=== PATIENT | female | born 1955 | race Two or more races ===

== ENCOUNTER 2020-08-17 18:44 | Emergency (ER) | payer MEDICARE, SELFPAY ==
[2020-08-17 18:55] VITALS: BP 132/79; PULSE 77; RESP 18; TEMP 37.9; O2SAT 99; BMI 28.8
--- NOTE | 2020-08-17 19:56 | ECG_ITS ---
Test Reason : ABDOMINAL PAIN Blood Pressure : / mmHG Vent. Rate : 077 BPM Atrial Rate : 077 BPM P-R Int : 150 ms QRS Dur : 092 ms QT Int : 398 ms P-R-T Axes : 044 -05 028 degrees QTc Int : 450 ms Normal sinus rhythm Normal ECG When compared with ECG of 23-JUL-2020 14:14, No significant change was found Referred By: Geovany Ventura Electronically Signed By:SYED SCHULTZ MD
--- NOTE | 2020-08-17 20:04 | ED_ITS ---
HPI - Abdominal Pain General Chief Complaint: Abdominal Pain <JENNIFER Larry Last Filed: 08/18/20 02:23> Stated Complaint: abd pain <JENNIFER Larry Last Filed: 08/18/20 02:23> Time Seen by Provider: 08/17/20 20:28 <JENNIFER Larry Last Filed: 08/18/20 02:23> Source: patient <JENNIFER Larry Last Filed: 08/18/20 02:23> Mode of arrival: ambulatory <JENNIFER Larry Last Filed: 08/18/20 02:23> Limitations: no limitations <JENNIFER Larry Last Filed: 08/18/20 02:23> History of Present Illness HPI narrative: Patient presents to the abdominal pain for for 4 days. Pateint states epigastric abdominal pain for 4 days. patient states no fever, chills, chest pain, swelling of lower extremiteis, calf pain, dysuria, or flank pain, <JENNIFER Larry Last Filed: 08/18/20 02:23> Related Data Allergies/Adverse Reactions: Allergies Allergy/AdvReac Type Severity Reaction Status Date / Time dicyclomine [From BENTYL] Allergy Unknown HIVES Verified 08/17/20 18:58 hydrocodone [HYDROCODONE] Allergy Unknown UNKNOWN Verified 08/17/20 18:58 ibuprofen [From MOTRIN] Allergy Unknown HIVES Verified 08/17/20 18:58 Iodinated Contrast Media Allergy Unknown ITCHING Verified 08/17/20 18:58 [IV CONTRAST] minocycline [MINOCYCLINE] Allergy Unknown UNK Verified 08/17/20 18:58 morphine [MORPHINE] Allergy Unknown UNKNOWN Verified 08/17/20 18:58 naproxen [NAPROXEN] Allergy Unknown UNKOWN Verified 08/17/20 18:58 peanut [PEANUT] Allergy Unknown HIVES Verified 08/17/20 18:58 sulfamethoxazole Allergy Unknown UNKNOWN Verified 08/17/20 18:58 [From BACTRIM] tramadol [TRAMADOL] Allergy Unknown UNK Verified 08/17/20 18:58 trimethoprim [From BACTRIM] Allergy Unknown UNKNOWN Verified 08/17/20 18:58 amitriptyline [AMITRIPTYLINE] AdvReac Mild HYPER Verified 08/17/20 18:58 metoclopramide [From REGLAN] AdvReac Mild HYPER Verified 08/17/20 18:58 latex [LATEX] AdvReac Unknown RASH Verified 08/17/20 18:58 phenylephrine [PHENYLEPHRINE] AdvReac Unknown UNKNOWN Verified 08/17/20 18:58 promethazine [From PHENERGAN] AdvReac Unknown UNK Verified 08/17/20 18:58 From REGLAN Allergy Unknown UNKNOWN Uncoded 07/20/20 18:07 SHELLFISH Allergy Unknown HIVES Uncoded 07/20/20 18:07 <JENNIFER Larry - Last Filed: 08/18/20 02:23> Review of Systems Review of Systems Yes all other systems are reviewed and are negative <JENNIFER Larry Last Filed: 08/18/20 02:23> Constitutional: Reports as per HPI and Reports no additional constitutional complaints <JENNIFER Larry Last Filed: 08/18/20 02:23> Eyes: Reports as per HPI and Reports no additional eye complaints <JENNIFER Larry Last Filed: 08/18/20 02:23> Reports system reviewed and no additional complaints, except as documented and Reports as per HPI <JENNIFER Larry Last Filed: 08/18/20 02:23> Cardiovascular: Reports as per HPI, Reports no additional cardiovascular complaints, Denies Abdominal Cramping after Meds, Denies Abdominal Distension, Denies chest pain, Denies chest pain at rest, Denies chest pain with activity, Denies Loss of Consciousness, Denies dyspnea on exertion and Denies orthopnea <JENNIFER Larry Last Filed: 08/18/20 02:23> Respiratory: Reports no additional respiratory complaints, Reports no additional respiratory complaints and Denies dyspnea on exertion <JENNIFER Larry Last Filed: 08/18/20 02:23> Gastrointestinal: Reports abdominal pain and Reports heartburn <JENNIFER Larry Last Filed: 08/18/20 02:23> Genitourinary: Reports no additional female genitourinary complaints, Reports as per HPI, Denies dysuria, Denies urinary incontinence, Denies urinary hesitancy and Denies urinary urgency <JENNIFER Larry Last Filed: 08/18/20 02:23> Reports system reviewed and no additional complaints, except as documented, Reports as per HPI and Denies behavioral changes <JENNIFER Larry Last Filed: 08/18/20 02:23> Psychiatric: Reports no additional psychiatric complaints, Reports as per HPI, Denies abnormal sleep pattern, Denies anxiety and Denies behavioral changes <JENNIFER Larry - Last Filed: 08/18/20 02:23> Physical Exam Vital Signs: Vital Signs: Vital Signs Temp Pulse Resp BP Pulse Ox 08/18/20 00:21 98.2 F 69 18 137/81 97 08/17/20 18:55 100.2 F 77 18 132/79 99 Body Mass Index 28.8 <JENNIFER Larry - Last Filed: 08/18/20 02:23> Vital Signs: Vital Signs Temp Pulse Resp BP Pulse Ox 08/18/20 00:21 98.2 F 69 18 137/81 97 08/17/20 18:55 100.2 F 77 18 132/79 99 Body Mass Index 28.8 <Raul Christina MD - Last Filed: 08/22/20 15:13> Const: General: cooperative, healthy appearing, comfortable and no acute distress <JENNIFER Larry Last Filed: 08/18/20 02:23> Orientation/consciousness: oriented to person, oriented to place, oriented to time and patient oriented x3 <JENNIFER Larry Last Filed: 08/18/20 02:23> HENMT: Head: Yes normal to inspection <JENNIEFR Larry Last Filed: 08/18/20 02:23> Eyes: General: appearance normal, both eyes and all related structures <JENNIFER Marie Last Filed: 08/18/20 02:23> Neck: Neck: Yes normal visual inspection <JENNIFER Larry Last Filed: 08/18/20 02:23> Chest: Chest palpation & inspection: normal inspection of the chest <JENNIFER Larry Last Filed: 08/18/20 02:23> Resp: Effort & Inspection: normal respiratory effort <JENNIFER Larry Last Filed: 08/18/20 02:23> Cardio: Jugular venous distension: no JVD <JENNIFER Larry Last Filed: 08/18/20 02:23> Rate: regular rate <JENNIFER Larry Last Filed: 08/18/20 02:23> Heart sounds: S1 normal heart sound present and S2 normal heart sound present <JENNIFER Larry Last Filed: 08/18/20 02:23> GI: Inspection: Yes normal to inspection, Yes abdominal wall ecchymosis, No Abdominal wall edema and No distended <JENNIFER Larry Last Filed: 08/18/20 02:23> Palpation (GI): Soft to palpation, not firm, Tenderness to palpation present (GI) in the epigastrum, no guarding and not rigid <JENNIFER Larry Last Filed: 08/18/20 02:23> Percussion: Yes normal to percussion <JENNIFER Larry Last Filed: 08/18/20 02:23> Auscultation: normal bowel sounds <JENNIFER Larry Last Filed: 08/18/20 02:23> : General: No CVA tenderness and Yes no CVA tenderness <JENNIFER Larry Last Filed: 08/18/20 02:23> Back/Spine/Pelvis: Back: no CVA tenderness, No CVA tenderness and No back tenderness <JENNIFER Larry Last Filed: 08/18/20 02:23> Skin: General skin exam: no rashes or lesions noted <JENNIFER Larry Last Filed: 08/18/20 02:23> Neuro: General: oriented to person, oriented to place, oriented to time, patient oriented x3, gait normal and CN's II-XI intact bilaterally <JENNIFER Larry Last Filed: 08/18/20 02:23> Cranial nerves: Yes CN's II-XII intact bilaterally <JENNIFER Larry Last Filed: 08/18/20 02:23> Psych: Appearance: grossly normal and well kempt <JENNIFER Larry Last Filed: 08/18/20 02:23> Course Course Course Narrative: Patient will have labs, EKG, troponin, and imaging for evaluation. Due to age. Cardiac evaluation will be done. <JENNIFER Larry Last Filed: 08/18/20 02:23> I have reviewed the chart <Raul Christina MD - Last Filed: 08/22/20 15:13> Reevaluation(s) Reevaluation #1: Abdominal CT scan and labs came back normal. Patient UA is normal. patient is safe for discharge <JENNIFER Larry - Last Filed: 08/18/20 02:23> Time: 23:21 <JENNIFER Larry - Last Filed: 08/18/20 02:23> MDM - Abdominal Pain MDM Narrative Medical decision making narrative: Ct scan normal. pmh indicate posibility of GERD. Troponin negative after 4 days of symptosm. <JENNIFER Laryr - Last Filed: 08/18/20 02:23> Lab Data Result diagrams: : 08/17/20 21:02 08/17/20 20:55 <JENNIFER Larry - Last Filed: 08/18/20 02:23> Labs: Lab Results 08/17/20 08/17/20 08/17/20 Range/Units 20:55 20:55 20:55 WBC (4.8-10.8) X10*3/uL RBC (4.20-5.50) X10*6/uL Hgb (12.0-16.0) g/dl Hct (37-47) % MCV (80-98) fL MCH (27.0-33.0) pg MCHC (31.0-35.0) g/dl RDW (11.0-16.0) % Plt Count (160-400) X10*3/uL MPV (9.4-12.3) fL Immature Gran % (Auto) (0.0-0.4) % Neut % (Auto) (45-73) % Lymph % (Auto) (20-40) % [place] % (Auto) (2-11) % Eos % (Auto) (0-4) % Baso % (Auto) (0-2) % Lymph # (Auto) (1.2-4.9) X10*3/uL [place] # (Auto) (0.1-1.2) X10*3/uL Eos # (Auto) (0.0-0.4) X10*3/uL Baso # (Auto) (0.0-0.2) X10*3/uL Abs Immat Gran (auto) (0.00-0.03) X10*3/uL Absolute Neuts (auto) (2.0-8.3) X10*3/uL Absolute Nucleated RBC (0.0-0.012) X10*3/uL Nucleated RBC % (auto) (0.0-0.2) /100WBC PT 13.8 H (10.8-13.0) SEC INR 1.2 H (0.9-1.1) APTT 32.8 (24.1-38.0) SEC Sodium 138 (135-145) mmol/L Potassium 3.8 (3.3-5.1) mmol/l Chloride 103 (96-108) mmol/L Carbon Dioxide 23 (22-29) mmol/L Anion Gap 16 (12-20) BUN 14 (9-16) mg/dL Creatinine 0.84 (0.5-1.4) mg/dL Estim Creat Clear Calc 65.8 Estimated GFR > 60 Random Glucose 135 H (60-115) mg/dL Calcium 9.1 (8.4-10.2) mg/dL Total Bilirubin 0.4 (0.0-1.0) mg/dL Direct Bilirubin 0.2 (0.0-0.5) mg/dL AST 19 (5-31) U/L ALT 21 (0-31) U/L Alkaline Phosphatase 46 (39-117) U/L Troponin I High Sens < 3.5 (<3.5-17.0) ng/L Total Protein 6.9 (6.5-8.0) g/dL Albumin 4.0 (3.5-5.0) g/dL Lipase 27 (8-78) U/L Urine Color Urine Appearance Urine pH (5.0-8.0) Ur Specific [place] (1.005-1.025) Urine Protein (NEG-TRACE) MG/DL Urine Glucose (UA) (NEG) MG/DL Urine Ketones (NEG) MG/DL Urine Blood (NEG) Urine Nitrite (NEG) Ur Leukocyte Esterase (NEG) 08/17/20 08/17/20 Range/Units 21:02 21:51 WBC 7.7 (4.8-10.8) X10*3/uL RBC 4.24 (4.20-5.50) X10*6/uL Hgb 12.0 (12.0-16.0) g/dl Hct 36.8 L (37-47) % MCV 86.8 (80-98) fL MCH 28.3 (27.0-33.0) pg MCHC 32.6 (31.0-35.0) g/dl RDW 12.2 (11.0-16.0) % Plt Count 240 (160-400) X10*3/uL MPV 9.7 (9.4-12.3) fL Immature Gran % (Auto) 0.3 (0.0-0.4) % Neut % (Auto) 58.3 (45-73) % Lymph % (Auto) 32.3 (20-40) % [place] % (Auto) 6.0 (2-11) % Eos % (Auto) 2.6 (0-4) % Baso % (Auto) 0.5 (0-2) % Lymph # (Auto) 2.5 (1.2-4.9) X10*3/uL [place] # (Auto) 0.5 (0.1-1.2) X10*3/uL Eos # (Auto) 0.2 (0.0-0.4) X10*3/uL Baso # (Auto) 0.0 (0.0-0.2) X10*3/uL Abs Immat Gran (auto) 0.02 (0.00-0.03) X10*3/uL Absolute Neuts (auto) 4.5 (2.0-8.3) X10*3/uL Absolute Nucleated RBC 0.000 (0.0-0.012) X10*3/uL Nucleated RBC % (auto) 0.0 (0.0-0.2) /100WBC PT (10.8-13.0) SEC INR (0.9-1.1) APTT (24.1-38.0) SEC Sodium (135-145) mmol/L Potassium (3.3-5.1) mmol/l Chloride (96-108) mmol/L Carbon Dioxide (22-29) mmol/L Anion Gap (12-20) BUN (9-16) mg/dL Creatinine (0.5-1.4) mg/dL Estim Creat Clear Calc Estimated GFR Random Glucose (60-115) mg/dL Calcium (8.4-10.2) mg/dL Total Bilirubin (0.0-1.0) mg/dL Direct Bilirubin (0.0-0.5) mg/dL AST (5-31) U/L ALT (0-31) U/L Alkaline Phosphatase (39-117) U/L Troponin I High Sens (<3.5-17.0) ng/L Total Protein (6.5-8.0) g/dL Albumin (3.5-5.0) g/dL Lipase (8-78) U/L Urine Color YELLOW Urine Appearance CLEAR Urine pH 5.5 (5.0-8.0) Ur Specific [place] 1.010 (1.005-1.025) Urine Protein NEG (NEG-TRACE) MG/DL Urine Glucose (UA) NEG (NEG) MG/DL Urine Ketones NEG (NEG) MG/DL Urine Blood NEG (NEG) Urine Nitrite NEG (NEG) Ur Leukocyte Esterase NEG (NEG) <JENNIFER Larry - Last Filed: 08/18/20 02:23> Lab Results 08/17/20 08/17/20 08/17/20 Range/Units 20:55 20:55 20:55 WBC (4.8-10.8) X10*3/uL RBC (4.20-5.50) X10*6/uL Hgb (12.0-16.0) g/dl Hct (37-47) % MCV (80-98) fL MCH (27.0-33.0) pg MCHC (31.0-35.0) g/dl RDW (11.0-16.0) % Plt Count (160-400) X10*3/uL MPV (9.4-12.3) fL Immature Gran % (Auto) (0.0-0.4) % Neut % (Auto) (45-73) % Lymph % (Auto) (20-40) % [place] % (Auto) (2-11) % Eos % (Auto) (0-4) % Baso % (Auto) (0-2) % Lymph # (Auto) (1.2-4.9) X10*3/uL [place] # (Auto) (0.1-1.2) X10*3/uL Eos # (Auto) (0.0-0.4) X10*3/uL Baso # (Auto) (0.0-0.2) X10*3/uL Abs Immat Gran (auto) (0.00-0.03) X10*3/uL Absolute Neuts (auto) (2.0-8.3) X10*3/uL Absolute Nucleated RBC (0.0-0.012) X10*3/uL Nucleated RBC % (auto) (0.0-0.2) /100WBC PT 13.8 H (10.8-13.0) SEC INR 1.2 H (0.9-1.1) APTT 32.8 (24.1-38.0) SEC Sodium 138 (135-145) mmol/L Potassium 3.8 (3.3-5.1) mmol/l Chloride 103 (96-108) mmol/L Carbon Dioxide 23 (22-29) mmol/L Anion Gap 16 (12-20) BUN 14 (9-16) mg/dL Creatinine 0.84 (0.5-1.4) mg/dL Estim Creat Clear Calc 65.8 Estimated GFR > 60 Random Glucose 135 H (60-115) mg/dL Calcium 9.1 (8.4-10.2) mg/dL Total Bilirubin 0.4 (0.0-1.0) mg/dL Direct Bilirubin 0.2 (0.0-0.5) mg/dL AST 19 (5-31) U/L ALT 21 (0-31) U/L Alkaline Phosphatase 46 (39-117) U/L Troponin I High Sens < 3.5 (<3.5-17.0) ng/L Total Protein 6.9 (6.5-8.0) g/dL Albumin 4.0 (3.5-5.0) g/dL Lipase 27 (8-78) U/L Urine Color Urine Appearance Urine pH (5.0-8.0) Ur Specific [place] (1.005-1.025) Urine Protein (NEG-TRACE) MG/DL Urine Glucose (UA) (NEG) MG/DL Urine Ketones (NEG) MG/DL Urine Blood (NEG) Urine Nitrite (NEG) Ur Leukocyte Esterase (NEG) 08/17/20 08/17/20 Range/Units 21:02 21:51 WBC 7.7 (4.8-10.8) X10*3/uL RBC 4.24 (4.20-5.50) X10*6/uL Hgb 12.0 (12.0-16.0) g/dl Hct 36.8 L (37-47) % MCV 86.8 (80-98) fL MCH 28.3 (27.0-33.0) pg MCHC 32.6 (31.0-35.0) g/dl RDW 12.2 (11.0-16.0) % Plt Count 240 (160-400) X10*3/uL MPV 9.7 (9.4-12.3) fL Immature Gran % (Auto) 0.3 (0.0-0.4) % Neut % (Auto) 58.3 (45-73) % Lymph % (Auto) 32.3 (20-40) % [place] % (Auto) 6.0 (2-11) % Eos % (Auto) 2.6 (0-4) % Baso % (Auto) 0.5 (0-2) % Lymph # (Auto) 2.5 (1.2-4.9) X10*3/uL [place] # (Auto) 0.5 (0.1-1.2) X10*3/uL Eos # (Auto) 0.2 (0.0-0.4) X10*3/uL Baso # (Auto) 0.0 (0.0-0.2) X10*3/uL Abs Immat Gran (auto) 0.02 (0.00-0.03) X10*3/uL Absolute Neuts (auto) 4.5 (2.0-8.3) X10*3/uL Absolute Nucleated RBC 0.000 (0.0-0.012) X10*3/uL Nucleated RBC % (auto) 0.0 (0.0-0.2) /100WBC PT (10.8-13.0) SEC INR (0.9-1.1) APTT (24.1-38.0) SEC Sodium (135-145) mmol/L Potassium (3.3-5.1) mmol/l Chloride (96-108) mmol/L Carbon Dioxide (22-29) mmol/L Anion Gap (12-20) BUN (9-16) mg/dL Creatinine (0.5-1.4) mg/dL Estim Creat Clear Calc Estimated GFR Random Glucose (60-115) mg/dL Calcium (8.4-10.2) mg/dL Total Bilirubin (0.0-1.0) mg/dL Direct Bilirubin (0.0-0.5) mg/dL AST (5-31) U/L ALT (0-31) U/L Alkaline Phosphatase (39-117) U/L Troponin I High Sens (<3.5-17.0) ng/L Total Protein (6.5-8.0) g/dL Albumin (3.5-5.0) g/dL Lipase (8-78) U/L Urine Color YELLOW Urine Appearance CLEAR Urine pH 5.5 (5.0-8.0) Ur Specific [place] 1.010 (1.005-1.025) Urine Protein NEG (NEG-TRACE) MG/DL Urine Glucose (UA) NEG (NEG) MG/DL Urine Ketones NEG (NEG) MG/DL Urine Blood NEG (NEG) Urine Nitrite NEG (NEG) Ur Leukocyte Esterase NEG (NEG) <Raul Christina MD - Last Filed: 08/22/20 15:13> ECG Data Pacemaker model: normal sinus rythm, normal ekg, Vent rate 77, AR interval 150 <JENNIFER Larry - Last Filed: 08/18/20 02:23> Discharge Plan Discharge Clinical Impression: GERD (gastroesophageal reflux disease) <JENNIFER Larry - Last Filed: 08/18/20 02:23> Patient Disposition: Home, Self-Care <JENNIFER Larry - Last Filed: 08/18/20 02:23> Instructions: Gastroesophageal Reflux Disease (ED) <JENNIFER Larry Last Filed: 08/18/20 02:23> Additional Instructions: Return to the ED for worsening abdominal pain, nausea, emesis, fever, chills, diarrhea, dysuria, hematuria, flank pain, rectal bleeding, weakness, chest pain, shortness of breath, or any other concerning symptoms. Continue taking GERD medications you already have at home. <JENNIFER Larry - Last Filed: 08/18/20 02:23> Referrals: Tawanda Lopez [Physician] - 2 days (GERD like abdominal pain. ) <JENNIFER Larry - Last Filed: 08/18/20 02:23> Interventions: ED Discharge Assessment Last Done: 08/18/20 00:27 <JENNIFER Larry - Last Filed: 08/18/20 02:23> Discharge Date/Time: 08/18/20 00:29 <JENNIFER Larry - Last Filed: 08/18/20 02:23> Print Language: Swedish <JENNIFER Larry - Last Filed: 08/18/20 02:23> [facility] Past Medical History Medical History: Medical History (Updated 08/19/20 @ 00:01 by Jonnathan Martin) Diabetes GERD (gastroesophageal reflux disease) HTN (hypertension) Migraine <JENNIFER Larry - Last Filed: 08/18/20 02:23> Social History Social History: Social History Alcohol intake: never Smoking Status: Never smoker Smoked in Last 30 Days: No Use of substances other than those prescribed or required for medical reasons: No Advance Directives: No Advance Directives Information Provided: Yes <JENNIFER Larry - Last Filed: 08/18/20 02:23>
--- NOTE | 2020-08-17 20:28 | CT_ITS ---
EXAMINATION: CT ABDOMEN AND PELVIS WITHOUT CONTRAST CLINICAL INFORMATION: Abdominal pain. COMPARISON: CT scan abdomen pelvis 07/24/2019. KUB 12/27/2019 TECHNIQUE: Multidetector volumetric imaging was performed from the superior aspect of the liver through the pubic symphysis. Sagittal and coronal reformatted images were obtained on the technologist's workstation. This CT examination was performed using dose optimization techniques as appropriate, variously including the following: *Automated exposure control *Adjustment of mA and/or kV according to patient size (this includes techniques or standardized protocols for targeted exams where dose is matched to indication/reason for exam; i.e. extremities or head) *Use of iterative reconstruction technique DLP: 580 mGy-cm FINDINGS: LUNG BASES: The visualized lung bases are unremarkable. LIVER, GALLBLADDER, AND BILIARY TREE: The liver is normal in size, shape, and attenuation. No focal hepatic lesion or biliary ductal dilatation is present. The gallbladder is unremarkable with no evidence of radiopaque gallstones, gallbladder wall thickening, or obvious pericholecystic inflammatory changes. PANCREAS: Unremarkable. SPLEEN: Unremarkable. ADRENAL GLANDS: Unremarkable. KIDNEYS AND URETERS: Both kidneys demonstrate multiple hypodensities likely renal cysts. Largest largest in the mid upper pole of left kidney measuring 2.3 cm. Right kidney: There is a 2 mm nonobstructive stone lower pole right kidney. There is no hydronephrosis or ureteral calculus. Left kidney: There is a 1 mm nonobstructive stone in the mid lower pole of left kidney there is a less than 1 mm size stone in the mid upper pole. There is no hydronephrosis. There is no ureteral stone. BLADDER: Unremarkable. GASTROINTESTINAL TRACT: There are scattered diverticula of the colon. The diverticula are most numerous at the sigmoid colon. There is no diverticulitis. There is no bowel wall thickening /edema. There is no bowel obstruction. There is a moderate to large volume of stool in the colon. The appendix is normal . The small bowel loops are unremarkable. The stomach is normal. There is no hiatal hernia. ABDOMINAL WALL: There is a small fat-containing left inguinal hernia. LYMPH NODES: Normal. VASCULAR: Atherosclerotic vascular calcifications throughout the abdomen or pelvis. There is no aneurysm. PELVIC VISCERA: Unremarkable. OSSEOUS STRUCTURES: Unremarkable. IMPRESSION: No acute abnormality CT scan abdomen pelvis. There are small bilateral nonobstructive renal calculi. There is no hydronephrosis. Diverticulosis of colon. Moderate to large-volume of stool in the colon. No acute change of the bowel.
[2020-08-17] MEDS: Lidocaine HCl Viscous 2 % 15 ML SOLUTION MUCOUS MEM (20:32)
[2020-08-17] MEDS: ondansetron HCL 4 MG/2 ML VIAL IVPUSH (20:32)
[2020-08-17] MEDS: Famotidine/PF 20 MG/2 ML VIAL IVPUSH (20:32)
[2020-08-17] MEDS: 0.9 % Sodium Chloride 1,000 ML 999 ML IVCONT (20:32)
[2020-08-17 21:13] LABS: INTERNATIONAL NORM RATIO 1.2 (0.9-1.1); Prothrombin Time 13.8 SEC (10.8-13.0)
[2020-08-17 21:14] LABS: MANUAL DIFF FLAG NO
[2020-08-17 21:16] LABS: Partial Thromboplastin Time 32.8 SEC (24.1-38.0)
[2020-08-17 21:20] LABS: Basophils Percent Auto 0.5 % (0-2); Eosinophils Absolute Auto 0.2 X10*3/uL (0.0-0.4); Eosinophils Percent Auto 2.6 % (0-4); Hematocrit 36.8 % (37-47); Imm Gran Abs Auto 0.02 X10*3/uL (0.00-0.03); Imm Gran Pct Auto 0.3 % (0.0-0.4); Lymphocytes Absolute Auto 2.5 X10*3/uL (1.2-4.9); Lymphocytes Percent Auto 32.3 % (20-40); Mean Corpuscular HGB Conc 32.6 g/dl (31.0-35.0); Mean Corpuscular Hemoglobin 28.3 pg (27.0-33.0); Mean Corpuscular Volume 86.8 fL (80-98); Mean Platelet Volume 9.7 fL (9.4-12.3); Monocytes Absolute Auto 0.5 X10*3/uL (0.1-1.2); Neutrophils Absolute Auto 4.5 X10*3/uL (2.0-8.3); Neutrophils Percent Auto 58.3 % (45-73); Platelet Count 240 X10*3/uL (160-400); Red Blood Count 4.24 X10*6/uL (4.20-5.50); Red Cell Distribution Width 12.2 % (11.0-16.0); White Blood Count 7.7 X10*3/uL (4.8-10.8)
[2020-08-17 21:26] LABS: Alanine Aminotransferase 21 U/L (0-31); Alkaline Phosphatase 46 U/L (39-117); Anion Gap 16 (12-20); Aspartate Amino Transferase 19 U/L (5-31); Bilirubin Direct 0.2 mg/dL (0.0-0.5); Bilirubin Total 0.4 mg/dL (0.0-1.0); Blood Urea Nitrogen 14 mg/dL (9-16); Calcium 9.1 mg/dL (8.4-10.2); Carbon Dioxide 23 mmol/L (22-29); Chloride 103 mmol/L (96-108); Creatinine Clr Calc Pharmacy 65.8; Estimated Glomerular Filt Rate > 60; Glucose Random 135 mg/dL (60-115); Lipase 27 U/L (8-78); Potassium 3.8 mmol/l (3.3-5.1); Sodium 138 mmol/L (135-145); Total Protein 6.9 g/dL (6.5-8.0)
[2020-08-17 21:32] LABS: Troponin-I High Sensitivity < 3.5 ng/L (<3.5-17.0)
[2020-08-17 22:02] LABS: Appearance Urine CLEAR; Color Urine YELLOW; Glucose Urine UA NEG (NEG); Leukocyte Esterase Urine NEG (NEG); Nitrite Urine NEG (NEG); PH 5.5 (5.0-8.0); Urine Blood NEG (NEG); Urine Ketones NEG (NEG); Urine Protein NEG (NEG-TRACE)
[2020-08-18 00:21] VITALS: BP 137/81; PULSE 69; RESP 18; TEMP 36.8; O2SAT 97
== END 2020-08-18 00:29 | disposition home or self-care (01) ==
PROVIDERS: Physician Assistant; Emergency Provider Emergency Medicine; PCP Internal Medicine Sports Medicine
DX: K21.9 Gastro-esophageal reflux disease without esophagitis (principal); E11.9 Type 2 diabetes mellitus without complications; I10 Essential (primary) hypertension
CPT/HCPCS: 36415; 74176; 80053; 80076; 81003; 83690; 84484; 85025; 85610; 85730; 93005; 96361; 96374; 96375; 99284; J2405

== ENCOUNTER 2021-04-21 15:54 | Emergency (ER) | payer MEDICARE, SELFPAY ==
[2021-04-21 16:02] VITALS: BP 114/71; PULSE 85; RESP 16; TEMP 37.2; O2SAT 95; BMI 28.3
--- NOTE | 2021-04-21 17:23 | ED_ITS ---
HPI - General Adult General Chief complaint: Skin/Abscess/Foreign Body Stated complaint: toe infection Time Seen by Provider: 04/21/21 17:14 Source: patient and RN notes reviewed Mode of arrival: ambulatory Limitations: no limitations History of Present Illness HPI narrative: 65-year-old female with a past medical history of diabetes. Patient had bilateral toe surgery week ago in [place] for ingrown toenails. Today reports that she is having pain to bilateral toes denies any bleeding, redness, infection. Patient reports that she was put on Percocet for few days however states that she finished few days ago. Patient denies any other symptoms. Related Data Previous Rx's Medication Instructions Recorded acetaminophen 650 mg PO Q6H PRN #20 cap 04/21/21 amoxicillin-pot clavulanate 1 tab PO BID 7 Days #14 tab 04/21/21 [Augmentin] Allergies Allergy/AdvReac Type Severity Reaction Status Date / Time dicyclomine [From BENTYL] Allergy Unknown HIVES Verified 08/17/20 18:58 hydrocodone [HYDROCODONE] Allergy Unknown UNKNOWN Verified 08/17/20 18:58 ibuprofen [From MOTRIN] Allergy Unknown HIVES Verified 08/17/20 18:58 Iodinated Contrast Media Allergy Unknown ITCHING Verified 08/17/20 18:58 [IV CONTRAST] minocycline [MINOCYCLINE] Allergy Unknown UNK Verified 08/17/20 18:58 morphine [MORPHINE] Allergy Unknown UNKNOWN Verified 08/17/20 18:58 naproxen [NAPROXEN] Allergy Unknown UNKOWN Verified 08/17/20 18:58 peanut [PEANUT] Allergy Unknown HIVES Verified 08/17/20 18:58 sulfamethoxazole Allergy Unknown UNKNOWN Verified 08/17/20 18:58 [From BACTRIM] tramadol [TRAMADOL] Allergy Unknown UNK Verified 08/17/20 18:58 trimethoprim [From BACTRIM] Allergy Unknown UNKNOWN Verified 08/17/20 18:58 amitriptyline [AMITRIPTYLINE] AdvReac Mild HYPER Verified 08/17/20 18:58 metoclopramide [From REGLAN] AdvReac Mild HYPER Verified 08/17/20 18:58 latex [LATEX] AdvReac Unknown RASH Verified 08/17/20 18:58 phenylephrine [PHENYLEPHRINE] AdvReac Unknown UNKNOWN Verified 08/17/20 18:58 promethazine [From PHENERGAN] AdvReac Unknown UNK Verified 08/17/20 18:58 From REGLAN Allergy Unknown UNKNOWN Uncoded 07/20/20 18:07 SHELLFISH Allergy Unknown HIVES Uncoded 07/20/20 18:07 Review of Systems Review of Systems: Constitutional : No Weight loss, No Fever, No Chills, No Night Sweats, No Fatigue, No Malaise ENT/Mouth : No Hearing loss, No Ear Pain, No Nasal Congestion, No Sinus Pain, No Hoarseness, No sore throat, No Rhinorrhea, No Swallowing Difficulty Eyes: No Eye Pain, No Swelling, No Redness, No Foreign Body, No Discharge, No Vision Changes Cardiovascular : No Chest Pain, No SOB, No Dyspnea on Exertion, No Orthopnea, No Edema, No Palpitations Respiratory : No Cough, No Sputum, No Wheezing, No Smoke Exposure, No Dyspnea Gastrointestinal : No Nausea, No Vomiting, No Diarrhea, No Constipation, No abdominal Pain, No Hematochezia, No Melena Genitourinary : no irregular bleeding, No Dysuria, No Urinary Frequency, No Hematuria, No Urinary Incontinence, No Urgency, No Flank Pain, No Urinary Flow Changes, No Hesitancy Musculoskeletal : No joint pain, No Myalgias, No Joint Swelling Skin : No Skin Lesions, No rash, bilateral great toe postsurgical pain Neuro : No Weakness, No Numbness, No Paresthesias, No Loss of Consciousness, No Dizziness, No Headache Psych : No Anxiety/Panic, No Depression, No SI/HI/AH/VH, No Social Issues, Heme/Lymph: No Bruising, No Bleeding,No Lymphadenopathy Endocrine : No Polyuria, No Polydipsia, No Temperature Intolerance Yes all other systems are reviewed and are negative [facility] Past Medical History Medical History (Updated 04/22/21 @ 00:01 by Background Damahnaz) Diabetes GERD (gastroesophageal reflux disease) HTN (hypertension) Migraine Social History Social History Alcohol intake: never Advance Directives: No Advance Directives Information Provided: No Physical Exam Vital Signs: Vital Signs: Last Vital Signs Temp 98.9 F 04/21/21 16:02 Pulse 85 04/21/21 16:02 Resp 16 04/21/21 16:02 BP 114/71 04/21/21 16:02 Pulse Ox 95 04/21/21 16:02 Body Mass Index 28.3 Const: General: healthy appearing, no acute distress and well developed Nutritional Appearance: well nourished Orientation/consciousness: patient oriented x3 Neck: Neck: Yes normal visual inspection, Yes full ROM and Yes trachea midline Thyroid: Thyroid normal Resp: Auscultation: clear to auscultation bilaterally Cardio: Rate: regular rate Rhythm: regular rhythm GI: Inspection: Yes normal to inspection and No distended Palpation (GI): No hepatosplenomegaly present Auscultation: normal bowel sounds Skin: General skin exam: elasticity normal, turgor normal and dry skin Neuro: General: patient oriented x3 Extrem: Left lower extremity: foot (Bilateral great toes post surgical wound negative for paronychia) Course Course Course Narrative: 65-year-old female is here today for complaint of bilateral toe pain after having surgery 1 week ago. Both toes examined negative for swelling, redness, drainage. No signs and symptoms of infection. Patient was putting bacitracin to the area. She was put on Percocet no antibiotics were given to her per patient. I will clean the area dressed it with xeroform dressing. Patient will be medicated with Augmentin and Tylenol as she drove herself. I will send her home with Percocet. Discharge Plan Discharge Clinical Impression: Toe erythema Patient Disposition: Home, Self-Care Instructions: Metatarsalgia (DC) Additional Instructions: You were he seen here today for complaining of toe pain after your surgical procedure. Upon the exam there is no infection, your given Tylenol and your 1st dose of antibiotic. You will be giving antibiotics for the next 7 days. Please take Tylenol for your pain. Make sure you follow-up with your surgeon on Friday. You may return to emergency department if you experience any additional symptoms or if you notice signs of infection. Prescriptions: New acetaminophen 325 mg capsule 650 mg PO Q6H PRN (Reason: pain) Qty: 20 RF: 0 amoxicillin-pot clavulanate [Augmentin] 875-125 mg tablet 1 tab PO BID 7 Days Qty: 14 RF: 0 Interventions: ED Discharge Assessment Last Done: 04/21/21 18:02 Discharge Date/Time: 04/21/21 18:03
[2021-04-21] MEDS: Acetaminophen 325 MG TABLET 650 MG PO (17:33)
[2021-04-21] MEDS: Amoxicillin/Potassium Clav 875 MG TABLET PO (17:33)
--- NOTE | 2021-04-21 17:46 | PC.NURSE ---
provider to bedside to apply xeroform dressing to bilat toes. pt medicated for pain with tylenol as charted
== END 2021-04-21 18:03 | disposition home or self-care (01) ==
PROVIDERS: Emergency Provider Internal Medicine
DX: L53.8 Other specified erythematous conditions (principal); M79.675 Pain in left toe(s); M79.674 Pain in right toe(s); Z98.890 Other specified postprocedural states
CPT/HCPCS: 99283

== ENCOUNTER 2021-09-18 21:16 | Emergency (ER) | payer MEDICARE, SELFPAY ==
--- NOTE | ~2021-09-18 | CT_ITS ---
EXAMINATION: CT ABDOMEN AND PELVIS WITHOUT CONTRAST CLINICAL INFORMATION: Abdominal pain COMPARISON: 08/17/2020 TECHNIQUE: Multidetector volumetric imaging was performed from the superior aspect of the liver through the pubic symphysis. Sagittal and coronal reformatted images were obtained on the technologist's workstation. This CT examination was performed using dose optimization techniques as appropriate, variously including the following: *Automated exposure control *Adjustment of mA and/or kV according to patient size (this includes techniques or standardized protocols for targeted exams where dose is matched to indication/reason for exam; i.e. extremities or head) *Use of iterative reconstruction technique DLP: 623 mGy-cm FINDINGS: LUNG BASES: The visualized lung bases are unremarkable. LIVER, GALLBLADDER, AND BILIARY TREE: The liver is normal in size, shape, and attenuation. No focal hepatic lesion or biliary ductal dilatation is present. The gallbladder is unremarkable with no evidence of radiopaque gallstones, gallbladder wall thickening, or obvious pericholecystic inflammatory changes. PANCREAS: Unremarkable. SPLEEN: Unremarkable. ADRENAL GLANDS: Unremarkable. KIDNEYS AND URETERS: The kidneys are normal in size, shape, and attenuation. A few scattered hypoattenuating bilateral renal lesions are most consistent with cysts; no follow-up recommended. There is a 2 mm calculus in the lower right kidney. No hydronephrosis, hydroureter, or obstructing calculi seen. No perinephric stranding. BLADDER: Unremarkable. GASTROINTESTINAL TRACT: There is some fecalization of small bowel is in the lower abdomen, without disproportionate dilation to specifically indicate obstruction. Moderate to large amount of stool is present in the colon. No significant bowel wall thickening is seen. The appendix is unremarkable. No free fluid or free air is seen. ABDOMINAL WALL: No significant hernia is appreciated. LYMPH NODES: Normal. VASCULAR: Scattered atherosclerotic calcifications are noted. PELVIC VISCERA: Unremarkable. OSSEOUS STRUCTURES: There is facet arthropathy of the lumbar spine. CT/CT abdomen pelvis wo con IMPRESSION: Moderate to large amount of stool throughout the colon. There is some fecalization of small bowel loops in the lower abdomen suggesting delayed intestinal transit, without specific evidence for obstruction.
[2021-09-18 21:34] VITALS: BP 155/82; PULSE 77; RESP 18; TEMP 36.6; O2SAT 96; BMI 29.3
[2021-09-18 22:43] VITALS: BP 145/78; PULSE 73; RESP 14; O2SAT 99
--- NOTE | 2021-09-18 23:19 | ED_ITS ---
HPI - General Adult General Chief complaint: General Medical Stated complaint: food stuck in throat Time Seen by Provider: 09/18/21 21:19 Source: patient Mode of arrival: ambulatory Limitations: no limitations History of Present Illness HPI narrative: This is a 66 years old patient presented to the emergency room wi th a chief complaint of difficult to swallow difficult to swallow. This is been going on for about 3 days, the patient states that he is able to drink fluids she has more difficulty with solid food, denies any fever vomiting diarrhea Onset (ago): day(s) (3) Location: abdomen Radiation: non-radiation Severity: moderate Quality: burning Pain Consistency: constant Relieving factors: none Related Data Previous Rx's Medication Instructions Recorded acetaminophen 325 mg capsule 650 mg PO Q6H PRN #20 cap 04/21/21 amoxicillin 875 mg-potassium 1 tab PO BID 7 Days #14 tab 04/21/21 clavulanate 125 mg tablet (Augmentin) lactulose 10 gram/15 mL oral 10 g (15 mL) PO BEDTIME #237 ml 09/19/21 solution Allergies Allergy/AdvReac Type Severity Reaction Status Date / Time dicyclomine [From BENTYL] Allergy Unknown HIVES Verified 08/17/20 18:58 hydrocodone [HYDROCODONE] Allergy Unknown UNKNOWN Verified 08/17/20 18:58 ibuprofen [From MOTRIN] Allergy Unknown HIVES Verified 08/17/20 18:58 Iodinated Contrast Media Allergy Unknown ITCHING Verified 08/17/20 18:58 [IV CONTRAST] minocycline [MINOCYCLINE] Allergy Unknown UNK Verified 08/17/20 18:58 morphine [MORPHINE] Allergy Unknown UNKNOWN Verified 08/17/20 18:58 naproxen [NAPROXEN] Allergy Unknown UNKOWN Verified 08/17/20 18:58 peanut [PEANUT] Allergy Unknown HIVES Verified 08/17/20 18:58 sulfamethoxazole Allergy Unknown UNKNOWN Verified 08/17/20 18:58 [From BACTRIM] tramadol [TRAMADOL] Allergy Unknown UNK Verified 08/17/20 18:58 trimethoprim [From BACTRIM] Allergy Unknown UNKNOWN Verified 08/17/20 18:58 amitriptyline [AMITRIPTYLINE] AdvReac Mild HYPER Verified 08/17/20 18:58 metoclopramide [From REGLAN] AdvReac Mild HYPER Verified 08/17/20 18:58 latex [LATEX] AdvReac Unknown RASH Verified 08/17/20 18:58 phenylephrine [PHENYLEPHRINE] AdvReac Unknown UNKNOWN Verified 08/17/20 18:58 promethazine [From PHENERGAN] AdvReac Unknown UNK Verified 08/17/20 18:58 From REGLAN Allergy Unknown UNKNOWN Uncoded 07/20/20 18:07 SHELLFISH Allergy Unknown HIVES Uncoded 07/20/20 18:07 Review of Systems Review of Systems: Yes all other systems are reviewed and are negative ENT: Reports system reviewed and no additional complaints, except as documented Cardiovascular: Cardiovascular: Reports no additional cardiovascular complaints, Denies chest pain, Denies chest pain at rest and Denies chest pain with activity Respiratory: Respiratory: Reports no additional respiratory complaints and Reports no additional respiratory complaints Gastrointestinal: Gastrointestinal: Reports no additional gastrointestinal complaints [facility] Past Medical History Medical History (Updated 09/19/21 @ 00:25 by Flako Diaz MD) Diabetes GERD (gastroesophageal reflux disease) HTN (hypertension) Migraine Social History Social History Alcohol intake: unknown Patient Tobacco Use Status: Tobacco use Unknown Use of substances other than those prescribed or required for medical reasons: Unknown Advance Directives: No Advance Directives Information Provided: No Physical Exam Vital Signs: Vital Signs: Last Vital Signs Temp 97.9 F 09/18/21 21:34 Pulse 71 09/18/21 23:45 Resp 16 09/18/21 23:45 BP 141/81 H 09/18/21 23:45 Pulse Ox 97 09/18/21 23:45 Body Mass Index 29.3 Const: General: cooperative, healthy appearing, comfortable, no acute distress, well developed and alert Nutritional Appearance: average body habitus Orientation/consciousness: patient oriented x3 Limitations: no limitations HENMT: Head: Yes normal to inspection Face and sinus: Yes normal facial exam Mouth: Normal oral and palatal mucosa present Neck: Neck: Yes normal visual inspection Thyroid: Thyroid normal Chest: Chest palpation & inspection: normal inspection of the chest Resp: Effort & Inspection: normal respiratory effort Auscultation: clear to auscultation bilaterally Cardio: Jugular venous distension: no JVD Rate: regular rate Rhythm: regular rhythm GI: Inspection: Yes normal to inspection Palpation (GI): Soft to palpation, not firm, nontender, no guarding and not rigid Skin: General skin exam: no rashes or lesions noted, elasticity normal and turgor normal Neuro: General: patient oriented x3 Extrem: General: Yes normal to inspection, Yes full ROM and Yes capillary refill normal Course Reevaluation(s) Reevaluation #1: Patient is stable she was able to drink water in the emergency department she does have dysphagia but this is not a complete obstruction because she is able to drink water without any problem. I given the number of gastroenterologis Dr Stringer,she will continue prilosec Ct showed constipation but pt she is already on miralax will add lactulose Pt very comfortable with the above plan of care Medical Decision Making Lab Data Result diagrams: 09/18/21 23:50 09/18/21 23:50 Labs: Lab Results 09/18/21 09/18/21 Range/Units 23:50 23:50 WBC 9.9 (4.8-10.8) X10*3/uL RBC 4.07 L (4.20-5.50) X10*6/uL Hgb 11.4 L (12.0-16.0) g/dl Hct 34.8 L (37.0-47.0) % MCV 85.5 (80.0-98.0) fL MCH 28.0 (27.0-33.0) pg MCHC 32.8 (31.0-35.0) g/dl RDW 13.8 (11.0-16.0) % Plt Count 259 (160-400) X10*3/uL MPV 9.4 (9.4-12.3) fL Immature Gran % (Auto) 0.4 (0.0-0.4) % Neut % (Auto) 62.4 (45-73) % Lymph % (Auto) 28.0 (20-40) % Marion % (Auto) 7.2 (2-11) % Eos % (Auto) 1.5 (0-4) % Baso % (Auto) 0.5 (0-2) % Lymph # (Auto) 2.8 (1.2-4.9) X10*3/uL Marion # (Auto) 0.7 (0.1-1.2) X10*3/uL Eos # (Auto) 0.2 (0.0-0.4) X10*3/uL Baso # (Auto) 0.1 (0.0-0.2) X10*3/uL Abs Immat Gran (auto) 0.04 H (0.00-0.03) X10*3/uL Absolute Neuts (auto) 6.2 (2.0-8.3) x10*3/uL Absolute Nucleated RBC 0.000 (0.0-0.012) X10*3/uL Nucleated RBC % (auto) 0.0 (0.0-0.2) /100WBC Sodium 138 (135-145) mmol/L Potassium 4.1 (3.3-5.1) mmol/L Chloride 105 (96-108) mmol/L Carbon Dioxide 24 (22-29) mmol/L Anion Gap 13 (12-20) BUN 18 H (9-16) mg/dL Creatinine 0.99 (0.5-1.4) mg/dL Estim Creat Clear Calc 55.5 Estimated GFR 56 Random Glucose 224 H (60-115) mg/dL Calcium 9.3 (8.4-10.2) mg/dL Total Bilirubin 0.2 (0.0-1.0) mg/dL AST 13 (5-31) U/L ALT 21 (0-31) U/L Alkaline Phosphatase 48 (39-117) U/L Total Protein 6.9 (6.5-8.0) g/dL Albumin 3.9 (3.5-5.0) g/dL Lipase 61 (8-78) U/L Imaging Data CT scan - abdomen: Radiologist's impression: There is a single intrauterine gestational sac with visible yolk sac, embryo/fetus, and cardiac activity.? There is no significant subchorionic hemorrhage or hematoma. HR:? 118 beats per minute. CRL (crown rump length): ? 0.36 cm (6 weeks 1 day +/- 4 days). BRITNEY (estimated date of delivery):? 05/13/2022 +/- 4 days. ? MATERNAL ADNEXA: ? ? The right maternal ovary measures 2.1 x 2.7 x 1.9 cm.? There is a 2.1 x 1.7 x 1.8 cm corpus luteum present The left maternal ovary measures 2.3 x 1.9 x 2.0 cm. There is no significant maternal adnexal mass.? No maternal pelvic ascites. US/US OB <= 14 weeks fetus IMPRESSION: 1. Single intrauterine gestation with ultrasound gestational age of? 6 weeks 1 day +/- 4 days. 2. Estimated date of delivery is 05/13/2022 +/- 4 days. 3. No maternal adnexal mass or pelvic ascites. 4. No evidence to suggest an ectopic . Discharge Plan Discharge Clinical Impression: Dysphagia, Constipation Patient Disposition: Home, Self-Care Instructions: Constipation (ED), Dysphagia (ED) Additional Instructions: Please call Dr. Stringer for follow-up you will need most likely on outpatient endoscopy,continue prilosec as you are doing Prescriptions: New lactulose 10 gram/15 mL solution 10 g PO BEDTIME Qty: 237 RF: 0 No Action acetaminophen 325 mg capsule 650 mg PO Q6H PRN (Reason: pain) Qty: 20 RF: 0 amoxicillin-pot clavulanate [Augmentin] 875-125 mg tablet 1 tab PO BID 7 Days Qty: 14 RF: 0 Referrals: Adrian Stringer MD [Physician] - 2 days
[2021-09-18 23:45] VITALS: BP 141/81; PULSE 71; RESP 16; O2SAT 97
[2021-09-18 23:55] LABS: MANUAL DIFF FLAG NO
[2021-09-19 00:01] LABS: Basophils Absolute Auto 0.1 X10*3/uL (0.0-0.2); Basophils Percent Auto 0.5 % (0-2); Eosinophils Absolute Auto 0.2 X10*3/uL (0.0-0.4); Eosinophils Percent Auto 1.5 % (0-4); Hematocrit 34.8 % (37.0-47.0); Hemoglobin 11.4 g/dl (12.0-16.0); Imm Gran Abs Auto 0.04 X10*3/uL (0.00-0.03); Imm Gran Pct Auto 0.4 % (0.0-0.4); Lymphocytes Absolute Auto 2.8 X10*3/uL (1.2-4.9); Mean Corpuscular HGB Conc 32.8 g/dl (31.0-35.0); Mean Corpuscular Volume 85.5 fL (80.0-98.0); Mean Platelet Volume 9.4 fL (9.4-12.3); Monocytes Absolute Auto 0.7 X10*3/uL (0.1-1.2); Monocytes Percent Auto 7.2 % (2-11); Neutrophils Absolute Auto 6.2 x10*3/uL (2.0-8.3); Neutrophils Percent Auto 62.4 % (45-73); Platelet Count 259 X10*3/uL (160-400); Red Blood Count 4.07 X10*6/uL (4.20-5.50); Red Cell Distribution Width 13.8 % (11.0-16.0); White Blood Count 9.9 X10*3/uL (4.8-10.8)
[2021-09-19 00:18] LABS: Alanine Aminotransferase 21 U/L (0-31); Albumin Level 3.9 g/dL (3.5-5.0); Alkaline Phosphatase 48 U/L (39-117); Anion Gap 13 (12-20); Aspartate Amino Transferase 13 U/L (5-31); Bilirubin Total 0.2 mg/dL (0.0-1.0); Blood Urea Nitrogen 18 mg/dL (9-16); Calcium 9.3 mg/dL (8.4-10.2); Carbon Dioxide 24 mmol/L (22-29); Chloride 105 mmol/L (96-108); Creatinine Clr Calc Pharmacy 55.5; Estimated Glomerular Filt Rate 56; Glucose Random 224 mg/dL (60-115); Lipase 61 U/L (8-78); Potassium 4.1 mmol/L (3.3-5.1); Sodium 138 mmol/L (135-145); Total Protein 6.9 g/dL (6.5-8.0)
== END 2021-09-19 01:23 | disposition home or self-care (01) ==
PROVIDERS: Emergency Provider Emergency Medicine; PCP Nurse Practitioner Family
DX: R13.10 Dysphagia, unspecified (principal); K59.00 Constipation, unspecified; R10.9 Unspecified abdominal pain; Z79.899 Other long term (current) drug therapy
CPT/HCPCS: 36415; 74176; 80053; 83690; 85025; 99284

== ENCOUNTER 2021-11-04 15:34 | Emergency (ER) | payer MEDICARE, SELFPAY ==
--- NOTE | ~2021-11-04 | XR_ITS ---
EXAMINATION: XR FOOT, LEFT CLINICAL INFORMATION: Rule out foreign body of the left heel COMPARISON: None TECHNIQUE: AP, lateral, and oblique views of the left foot. FINDINGS: No radiopaque foreign body seen. There is enthesopathy of the distal Achilles tendon attachment. Tiny plantar calcaneal osteophyte is present. No fracture or dislocation. Normal mineralization and alignment. XR/XR foot LT min 3V IMPRESSION: No radiopaque foreign body seen.
[2021-11-04 17:02] VITALS: BP 129/78; PULSE 83; RESP 14; TEMP 36.2; O2SAT 97; BMI 29.2
--- NOTE | 2021-11-04 19:15 | ED_ITS ---
HPI - Wound/Laceration General Chief Complaint: Wound/Laceration Stated Complaint: ? foreign body bottom left foot Time Seen by Provider: 11/04/21 17:01 History of Present Illness HPI narrative: Patient complains of foreign body sensation in left heel for several days Related Data Previous Rx's Medication Instructions Recorded acetaminophen 325 mg capsule 650 mg PO Q6H PRN #20 cap 04/21/21 amoxicillin 875 mg-potassium 1 tab PO BID 7 Days #14 tab 04/21/21 clavulanate 125 mg tablet (Augmentin) lactulose 10 gram/15 mL oral 10 g (15 mL) PO BEDTIME #237 ml 09/19/21 solution acetaminophen 500 mg tablet 1,000 mg PO QID PRN #30 tab 11/04/21 oxycodone 5 mg tablet 5 mg PO Q6H PRN #7 tab 11/04/21 Allergies Allergy/AdvReac Type Severity Reaction Status Date / Time dicyclomine [From BENTYL] Allergy Unknown HIVES Verified 08/17/20 18:58 hydrocodone [HYDROCODONE] Allergy Unknown UNKNOWN Verified 08/17/20 18:58 ibuprofen [From MOTRIN] Allergy Unknown HIVES Verified 08/17/20 18:58 Iodinated Contrast Media Allergy Unknown ITCHING Verified 08/17/20 18:58 [IV CONTRAST] minocycline [MINOCYCLINE] Allergy Unknown UNK Verified 08/17/20 18:58 morphine [MORPHINE] Allergy Unknown UNKNOWN Verified 08/17/20 18:58 naproxen [NAPROXEN] Allergy Unknown UNKOWN Verified 08/17/20 18:58 peanut [PEANUT] Allergy Unknown HIVES Verified 08/17/20 18:58 sulfamethoxazole Allergy Unknown UNKNOWN Verified 08/17/20 18:58 [From BACTRIM] tramadol [TRAMADOL] Allergy Unknown UNK Verified 08/17/20 18:58 trimethoprim [From BACTRIM] Allergy Unknown UNKNOWN Verified 08/17/20 18:58 amitriptyline [AMITRIPTYLINE] AdvReac Mild HYPER Verified 08/17/20 18:58 metoclopramide [From REGLAN] AdvReac Mild HYPER Verified 08/17/20 18:58 latex [LATEX] AdvReac Unknown RASH Verified 08/17/20 18:58 phenylephrine [PHENYLEPHRINE] AdvReac Unknown UNKNOWN Verified 08/17/20 18:58 promethazine [From PHENERGAN] AdvReac Unknown UNK Verified 08/17/20 18:58 From REGLAN Allergy Unknown UNKNOWN Uncoded 07/20/20 18:07 SHELLFISH Allergy Unknown HIVES Uncoded 07/20/20 18:07 Review of Systems Review of Systems: Positive for foreign body sensation in left heel Negative no fever no chills no swelling no joint pains no redness no discharge from wound no difficulty walking no numbness weakness or tingling Yes all other systems are reviewed and are negative PMFSH Past Medical History Source: nursing notes reviewed Medical History (Updated 11/05/21 @ 00:01 by Jonnathan Martin) Diabetes GERD (gastroesophageal reflux disease) HTN (hypertension) Migraine Social History Social History Alcohol intake: unknown Patient Tobacco Use Status: Tobacco use Unknown Advance Directives: No Advance Directives Information Provided: Yes Physical Exam Vital Signs: Vital Signs: Last Vital Signs Temp 97.2 F 11/04/21 17:02 Pulse 83 11/04/21 17:02 Resp 14 11/04/21 17:02 BP 129/78 11/04/21 17:02 Pulse Ox 97 11/04/21 17:02 BMI result Body Mass Index 29.2 General appearance no acute distress Head normocephalic atraumatic Neck is supple Respiratory no distress The back full range of motion Extremities full range of motion x4 Left heel there is what appears to be a small superficial laceration with a thin area of darkness in this per facial laceration which could be clotted blood, could be a piece of foreign body Neurovascular intact distal Course Course Course Narrative: The laceration on the bottom of the foot was numbed with lidocaine and cleansed with Betadine With an 11 blade I made a small incision so I could probed for foreign body I did remove her for E swallow dark-colored piece of foreign body which could have been a piece of wood splinter but was not sure As I could not feel any target for further probing I discontinued Patient is advised that if symptoms persist she might need MRI ultrasound or visit to a specialist for further exploration for a radiopaque foreign body like a splinter X-ray did not reveal any foreign body Discharge Plan Discharge Clinical Impression: Acute foreign body of left heel Patient Disposition: Home, Self-Care Additional Instructions: I removed a very small piece of a dark-colored foreign body possibly a splinter of wood There may be more splinter under the foot so you may need further evaluation if discomfort continues so follow with orthopedist or ict quality assurance engineer Return any time for redness swelling any sign of infection You got a tetanus shot today Prescriptions: New oxycodone 5 mg tablet 5 mg PO Q6H PRN (Reason: pain) Qty: 7 RF: 0 acetaminophen 500 mg tablet 1,000 mg PO QID PRN (Reason: pain) Qty: 30 RF: 0 No Action acetaminophen 325 mg capsule 650 mg PO Q6H PRN (Reason: pain) Qty: 20 RF: 0 amoxicillin-pot clavulanate [Augmentin] 875-125 mg tablet 1 tab PO BID 7 Days Qty: 14 RF: 0 lactulose 10 gram/15 mL solution 10 g PO BEDTIME Qty: 237 RF: 0 Referrals: Cynthia Jose MD [Physician] - 2 days (Possible left foot foreign body) Roland Rodriguez DPM [Physician] - 2 days (Possible left foot foreign body) Interventions: ED Discharge Assessment Last Done: 11/04/21 19:41 Discharge Date/Time: 11/04/21 19:43
[2021-11-04] MEDS: Diphth,Pertus(ACell),Tet Adult 0.5 ML SYRINGE IM (19:37)
== END 2021-11-04 19:43 | disposition home or self-care (01) ==
PROVIDERS: Emergency Provider Internal Medicine; PCP Nurse Practitioner Family
DX: S91.322A Laceration with foreign body, left foot, initial encounter (principal); X58.XXXA Exposure to other specified factors, initial encounter; Y93.9 Activity, unspecified; Y92.9 Unspecified place or not applicable; Y99.9 Unspecified external cause status
CPT/HCPCS: 10120; 73630; 90471; 90715; 99283; 99284

== ENCOUNTER 2022-03-15 07:38 | Outpatient (REF) | payer OTHER, SELFPAY ==
[2022-03-15 08:39] LABS: Hemoglobin 11.6 g/dl (12.0-16.0); Mean Corpuscular HGB Conc 31.4 g/dl (31.0-35.0); Mean Corpuscular Hemoglobin 26.4 pg (27.0-33.0); Mean Corpuscular Volume 84.3 fL (80.0-98.0); Mean Platelet Volume 9.9 fL (9.4-12.3); Platelet Count 295 X10*3/uL (160-400); Red Blood Count 4.39 X10*6/uL (4.20-5.50); Red Cell Distribution Width 13.2 % (11.0-16.0); White Blood Count 7.6 X10*3/uL (4.8-10.8)
[2022-03-15 09:01] LABS: Creatinine Urine 73.25 mg/dL
[2022-03-15 09:05] LABS: Alanine Aminotransferase 26 U/L (0-31); Albumin Level 4.3 g/dL (3.5-5.0); Alkaline Phosphatase 48 U/L (39-117); Anion Gap 14 (12-20); Aspartate Amino Transferase 22 U/L (5-31); Bilirubin Total 0.4 mg/dL (0.0-1.0); Blood Urea Nitrogen 18 mg/dL (9-16); Calcium 10.1 mg/dL (8.4-10.2); Carbon Dioxide 23 mmol/L (22-29); Chloride 105 mmol/L (96-108); Cholesterol 125 mg/dL; Estimated Glomerular Filt Rate > 60; Glucose Fasting 197 mg/dL (60-99); HDL Cholesterol 38 mg/dL; LDL Cholesterol Calculated 68 mg/dl; Lipase 34 U/L (8-78); Potassium 4.2 mmol/L (3.3-5.1); Sodium 138 mmol/L (135-145); Total Protein 7.5 g/dL (6.5-8.0); Triglycerides 97 mg/dL
[2022-03-15 09:27] LABS: TSH reflex Free T4 1.15 uIU/mL (0.32-4.0)
[2022-03-20 07:55] LABS: Transglutaminase Ab IgG <1.0 U/mL; Transglutaminase IgA <1.0 U/mL
== END 2022-03-15 07:39 | disposition home or self-care (01) ==
LOC: HO.LAB 07:38
PROVIDERS: PCP Physician Assistant; Visit Provider Physician Assistant
DX: I10 Essential (primary) hypertension (principal); R14.0 Abdominal distension (gaseous)
CPT/HCPCS: 36415; 80053; 80061; 82043; 83690; 84443; 85027; 86364

== ENCOUNTER 2022-05-02 07:57 | Outpatient (REF) | payer OTHER, SELFPAY ==
[2022-05-02 09:13] LABS: Estimated Average Glucose 171 mg/dL; Hemoglobin A1c % 7.6 %
== END 2022-05-02 07:58 | disposition home or self-care (01) ==
LOC: HO.LAB 07:57
PROVIDERS: PCP Physician Assistant; Visit Provider Physician Assistant
DX: E11.65 Type 2 diabetes mellitus with hyperglycemia (principal)
CPT/HCPCS: 36415; 83036

== ENCOUNTER → 2022-11-08 12:12 | Outpatient (BNVA) | payer OTHER, SELFPAY | PROVIDERS: PCP Physician Assistant; Visit Provider Internal Medicine Gastroenterology | DX: R13.10 Dysphagia, unspecified (principal); R10.13 Epigastric pain | CPT/HCPCS: Q3014 ==

== ENCOUNTER 2022-12-21 11:27 | Emergency (ER) | payer OTHER, SELFPAY ==
--- NOTE | ~2022-12-21 | XR_ITS ---
EXAMINATION: XR CHEST CLINICAL INFORMATION: Reason for Exam Cough COMPARISON: None TECHNIQUE: 2 views of the chest FINDINGS: Clear lungs. No pneumothorax or pleural effusion. Normal cardiomediastinal silhouette. XR/XR chest 2V IMPRESSION: * Clear lungs.
[2022-12-21 12:02] VITALS: BP 148/86; PULSE 85; RESP 16; TEMP 36.4; O2SAT 97; BMI 28.1
--- NOTE | 2022-12-21 12:03 | ED.URI ---
HPI - URI/Sore Throat General Chief Complaint: Upper Respiratory Symptoms <Rere Jimenez NP - Last Filed: 12/21/22 12:04> Stated Complaint: dry cough tickle <Rere Jimenez NP - Last Filed: 12/21/22 12:04> Time Seen by Provider: 12/21/22 12:19 <Rere Jimenez NP - Last Filed: 12/21/22 12:04> History of Present Illness HPI Narrative: Patient complains of runny nose cough body aches for 3 or 4 days, no sputum no shortness of breath no chest pain no headache no dizziness no fainting no feeling faint no sore throat no difficulty breathing or swallowing no abdominal pain no nausea vomiting or diarrhea no leg swelling <JENNIFER Melo - Last Filed: 12/22/22 10:51> Related Data Home Medications: Home Medications Medication Instructions Recorded Confirmed lactulose 10 gram/15 mL oral 10 g PO BEDTIME prn constipatio 11/08/22 solution polyethylene glycol 3350 17 gram 17 g PO DAILY PRN constipation 11/08/22 oral powder packet (Purelax) Previous Rx's Medication Instructions Recorded atorvastatin 40 mg tablet 40 mg PO DAILY #90 tabs 04/24/22 triamcinolone acetonide 0.1 % 1 appl topical DAILY 15 days #30 04/24/22 topical cream grams acetaminophen 500 mg tablet 500 mg PO QID pain 30 days #120 07/31/22 tabs metformin 500 mg tablet,extended 1,000 mg PO DAILY 90 days #180 tabs 07/31/22 release 24 hr esomeprazole magnesium 40 mg 40 mg PO DAILY 90 days #90 caps 10/02/22 capsule,delayed release dulaglutide 0.75 mg/0.5 mL 0.75 mg (0.5 mL) subcut QWEEK 4 10/17/22 subcutaneous pen injector weeks #2 mL (Trulicity) losartan 50 mg tablet 50 mg PO DAILY 90 days #90 tabs 10/23/22 peg-electrolyte solution 420 gram 240 ml PO Q10M #4,000 mL 11/08/22 oral solution <Rere Jimenez NP - Last Filed: 12/21/22 12:04> Allergies/Adverse Reactions: Allergies Allergy/AdvReac Type Severity Reaction Status Date / Time dicyclomine [From BENTYL] Allergy Unknown HIVES Verified 11/08/22 12:13 hydrocodone [HYDROCODONE] Allergy Unknown UNKNOWN Verified 11/08/22 12:13 ibuprofen [From MOTRIN] Allergy Unknown HIVES Verified 11/08/22 12:13 Iodinated Contrast Media Allergy Unknown ITCHING Verified 11/08/22 12:13 [IV CONTRAST] minocycline [MINOCYCLINE] Allergy Unknown UNK Verified 11/08/22 12:13 morphine [MORPHINE] Allergy Unknown UNKNOWN Verified 11/08/22 12:13 naproxen [NAPROXEN] Allergy Unknown UNKOWN Verified 11/08/22 12:13 peanut [PEANUT] Allergy Unknown HIVES Verified 11/08/22 12:13 sulfamethoxazole Allergy Unknown UNKNOWN Verified 11/08/22 12:13 [From BACTRIM] tramadol [TRAMADOL] Allergy Unknown UNK Verified 11/08/22 12:13 trimethoprim [From BACTRIM] Allergy Unknown UNKNOWN Verified 11/08/22 12:13 amitriptyline [AMITRIPTYLINE] AdvReac Mild HYPER Verified 11/08/22 12:13 metoclopramide [From REGLAN] AdvReac Mild HYPER Verified 11/08/22 12:13 latex [LATEX] AdvReac Unknown RASH Verified 11/08/22 12:13 phenylephrine [PHENYLEPHRINE] AdvReac Unknown UNKNOWN Verified 11/08/22 12:13 promethazine [From PHENERGAN] AdvReac Unknown UNK Verified 11/08/22 12:13 From REGLAN Allergy Unknown UNKNOWN Uncoded 11/08/22 12:13 SHELLFISH Allergy Unknown HIVES Uncoded 11/08/22 12:13 <Rere Jimenez NP - Last Filed: 12/21/22 12:04> [facility] Past Medical History Source: nursing notes reviewed <JENNIFER Melo - Last Filed: 12/22/22 10:51> Medical History: Medical History (Updated 12/22/22 @ 00:00 by Jonnathan Martin) Diabetes GERD (gastroesophageal reflux disease) HTN (hypertension) Migraine <Rere Jimenez NP - Last Filed: 12/21/22 12:04> Surgical History: Surgical History (Updated 11/08/22 @ 12:15 by BRANDY Munoz) History of esophagogastroduodenoscopy (EGD) Hx of colonoscopy S/P carpal tunnel release <Rere Jimenez NP - Last Filed: 12/21/22 12:04> Family History Family History: Family History (Updated 11/08/22 @ 12:16 by BRANDY Munoz) Maternal Grandmother Colon cancer <Rere Jimenez NP - Last Filed: 12/21/22 12:04> Social History Social History: Social History Housing: Apartment Alcohol intake: unknown Patient Tobacco Use Status: Never used Tobacco e-Cigarette/Vaping Use: Never Used Advance Directives: No Advance Directives Information Provided: Yes service: No Current occupational status: disabled Cognitive needs: No Hearing needs: No Vision needs: No <Rere Jimenez NP - Last Filed: 12/21/22 12:04> Physical Exam Vital Signs: Vital Signs: Last Vital Signs Temp 97.5 F 12/21/22 12:02 Pulse 85 12/21/22 12:02 Resp 16 12/21/22 12:02 BP 148/86 H 12/21/22 12:02 Pulse Ox 97 12/21/22 12:02 O2 Del Method 12/21/22 12:02 BMI result Body Mass Index 28.1 <Rere Jimenez NP - Last Filed: 12/21/22 12:04> Vital Signs: Last Vital Signs Temp 97.5 F 12/21/22 12:02 Pulse 85 12/21/22 12:02 Resp 16 12/21/22 12:02 BP 148/86 H 12/21/22 12:02 Pulse Ox 97 12/21/22 12:02 O2 Del Method 12/21/22 12:02 BMI result Body Mass Index 28.1 <JENNIFER Melo - Last Filed: 12/22/22 10:51> General appearance comfortable no distress Eyes no redness or discharge The sinuses nontender The pharynx clear without redness swelling or exudate mucous membranes moist voice normal Neck is supple Chest clear to auscultation bilateral with full symmetric breath sounds Heart no murmur Abdomen soft nontender Extremities no edema no calf tenderness or swelling Skin no rash <JENNIFER Melo - Last Filed: 12/22/22 10:51> Course Course Course Narrative: This is a rapid medical exam. Deferred additional HPI, ROS, PE to primary provider. 67 yo female with history of HTN, DM, HLD, GERD here with 3 days of sore throat, cough. Will obtain testing for flu, covid, rsv and strep. VSS <Rere Jimenez NP - Last Filed: 12/21/22 12:04> This is a rapid medical exam. Deferred additional HPI, ROS, PE to primary provider. 67 yo female with history of HTN, DM, HLD, GERD here with 3 days of sore throat, cough. Will obtain testing for flu, covid, rsv and strep. VSS The test for COVID and influenza is negative Chest x-ray was negative Well-appearing patient with normal exam, no fever no difficulty breathing is discharge diagnosis viral syndrome <JENNIFER Melo - Last Filed: 12/22/22 10:51> Medical Decision Making Lab Data MDM Lab Attestation statement: I reviewed the patient's lab results. <JENNIFER Melo - Last Filed: 12/22/22 10:51> Labs: Lab Results 12/21/22 12/21/22 Range/Units 12:20 12:20 Influenza Type A (PCR) NEGATIVE (Negative) Influenza Type B (PCR) NEGATIVE (Negative) RSV RNA Qual (PCR) NEGATIVE (Negative) SARS-CoV-2 RNA (RT-PCR) NEGATIVE (Negative) S. pyogenes GrpA MONICA Negative (Negative) <Rere Jimenez NP - Last Filed: 12/21/22 12:04> Lab Results 12/21/22 12/21/22 Range/Units 12:20 12:20 Influenza Type A (PCR) NEGATIVE (Negative) Influenza Type B (PCR) NEGATIVE (Negative) RSV RNA Qual (PCR) NEGATIVE (Negative) SARS-CoV-2 RNA (RT-PCR) NEGATIVE (Negative) S. pyogenes GrpA MONICA Negative (Negative) <JENNIFER Melo - Last Filed: 12/22/22 10:51> Discharge Plan Discharge Clinical Impression: Acute viral syndrome <Rere Jimenez NP - Last Filed: 12/21/22 12:04> Patient Disposition: Home, Self-Care <Rere Jimenez NP - Last Filed: 12/21/22 12:04> Additional Instructions: COVID testing and flu testing were negative On exam her lungs were crystal clear, vital signs oxygen level and respiratory rate were all normal Chest x-ray was normal no sign of any dangerous illness or pneumonia Follow with primary doctor next week if needed and return to the ER any time if worse <Rere Jimenez NP - Last Filed: 12/21/22 12:04> Prescriptions: No Action esomeprazole magnesium 40 mg capsule,delayed release(DR/EC) 40 mg PO DAILY 90 Days Qty: 90 1RF Trulicity 0.75 mg/0.5 mL pen injector 0.75 mg subcut QWEEK 28 Days Qty: 2 1RF metformin 500 mg tablet extended release 24 hr 1,000 mg PO DAILY 90 Days Qty: 180 1RF acetaminophen 500 mg tablet 500 mg PO QID 30 Days Qty: 120 0RF losartan 50 mg tablet 50 mg PO DAILY 90 Days Qty: 90 1RF triamcinolone acetonide 0.1 % cream 1 appl topical DAILY 15 Days Qty: 30 1RF atorvastatin 40 mg tablet 40 mg PO DAILY Qty: 90 1RF lactulose 10 gram/15 mL solution 10 g PO BEDTIME Rx Instructions: stop if you develop diarrhea polyethylene glycol 3350 [Purelax] 17 gram powder in packet 17 g PO DAILY PRN (Reason: constipation) peg-electrolyte soln 420 gram recon soln 240 ml PO Q10M Qty: 4000 0RF Rx Instructions: until fecal effluent is clear; do not exceed a total volume of 2,000 mL <Rere Jimenez NP - Last Filed: 12/21/22 12:04> Interventions: ED Discharge Assessment Last Done: 12/21/22 15:04 <Rere Jimenez NP - Last Filed: 12/21/22 12:04> Discharge Date/Time: 12/21/22 15:04 <Rere Jimenez NP - Last Filed: 12/21/22 12:04>
[2022-12-21 12:45] LABS: IDNOW Serial# 6674DD1D
[2022-12-21 12:46] LABS: Strep A Nucleic Acid Negative (Negative)
[2022-12-21 13:08] LABS: Influenza A PCR NEGATIVE (Negative); Influenza B PCR NEGATIVE (Negative); Resp Syncy Virus RNA Qual PCR NEGATIVE (Negative); SARS COV2 PCR INHOUSE NEGATIVE (Negative)
== END 2022-12-21 15:04 | disposition home or self-care (01) ==
PROVIDERS: Nurse Practitioner Family; Emergency Provider Emergency Medicine; PCP Physician Assistant
DX: B34.9 Viral infection, unspecified (principal); R05.9 Cough, unspecified; Z20.822 Contact with and (suspected) exposure to COVID-19; Z20.828 Contact with and (suspected) exposure to other viral communicable diseases; E11.9 Type 2 diabetes mellitus without complications; I10 Essential (primary) hypertension; E78.5 Hyperlipidemia, unspecified; Z79.02 Long term (current) use of antithrombotics/antiplatelets; Z79.84 Long term (current) use of oral hypoglycemic drugs; Z79.85 Long-term (current) use of injectable non-insulin antidiabetic drugs; Z79.899 Other long term (current) drug therapy
CPT/HCPCS: 0241U; 71046; 87651; 99282; 99283

== ENCOUNTER 2023-02-13 11:07 | Emergency (ER) | payer OTHER, SELFPAY ==
--- NOTE | ~2023-02-13 | US_ITS ---
EXAMINATION: Ultrasound pelvis complete and transvaginal. Ultrasound abdomen complete. CLINICAL INDICATION: Acute pelvic pain and abdominal pain. COMPARISON: CT abdomen and pelvis without contrast 09/18/2021. TECHNIQUE: Routine complete imaging of abdomen was performed. Subsequently transabdominal and transvaginal imaging of pelvis was performed. FINDINGS:. PELVIS: The uterus is retroverted and retroflexed measuring 5.2 x 2.8 x 3.7 cm. The endometrial thickness is not visualized. No focal lesion seen. However there is echogenic areas in the uterus. Echogenic areas seen within the cervix measuring 0.2 cm question debris or calcification. Both ovaries are not visualized. There is no obvious free fluid in the cul-de-sac. ABDOMEN: Pancreas: The pancreas is homogeneous echotexture and normal size. Aorta: The normal caliber throughout its proximal mid and distal segments. IVC: Unremarkable. Liver: The liver is diffusely increased in echogenicity with areas of focal fatty sparing around the gallbladder. It is normal size and normal contour. No focal lesion or intrahepatic ductal dilatation seen. CBD: CBD measures 0.5 cm. Gallbladder: There are no echogenic gallstones or wall thickening. No pericholecystic fluid collection. Right kidney: The right kidney measures 9.2 cm in length. There is normal size and contour. There are multiple anechoic simple cysts. The largest measured upper pole cyst measures 0.9 x 0.9 x 1.3 cm. Lower pole laterally measures 1.3 x 0.9 x 0.9 cm. There is an echogenic stone with no twinkle artifact measuring 0.6 x 0.6 x 0.7 cm. No acute caliectasis or hydronephrosis seen. Left kidney the left kidney measures 9.9 cm. There is multiple anechoic cysts. The largest cyst in upper pole laterally measures 2.4 x 2.6 x 2.4 cm lower pole laterally cyst measures 2.2 x 2.2 x 2.3 cm and 2.0 x 1.8 x 2.0 cm the third lower pole cyst measures 1501.6 x 1.6 cm. There is no caliectasis or hydronephrosis Spleen: It measures 8.4 cm and appears unremarkable. US/US pelvic and transvaginal IMPRESSION: 1. Bilateral simple renal cysts. 2. There is a nonobstructive echogenic stone lower pole right kidney. 3. Hepatic steatosis with focal fatty sparing around the gallbladder. 4. The uterus is retroverted and retroflexed. The endometrium is not visualized. There are echogenic areas in the cervix question debris or calcification. 5. Rest of the abdominal ultrasound is unremarkable.
--- NOTE | 2023-02-13 11:21 | ED_ITS ---
HPI - General Adult General Chief complaint: Abdominal Pain <Rere Jimenez NP - Last Filed: 02/13/23 11:24> Stated complaint: bladder issues <Rere Jimenez NP - Last Filed: 02/13/23 11:24> Time Seen by Provider: 02/13/23 12:57 <Rere Jimenez NP - Last Filed: 02/13/23 11:24> Source: patient <Evangelista Walters MD - Last Filed: 02/13/23 17:28> Mode of arrival: ambulatory <Evangelista Walters MD - Last Filed: 02/13/23 17:28> Limitations: no limitations <Evangelista Walters MD - Last Filed: 02/13/23 17:28> History of Present Illness HPI narrative: 67-year-old female presents with 2 abdominal complaints. Patient presents with 1 week of lower abdominal/pelvic pain. The pain is [id number] in nature. It is suprapubic. Does not radiate. There is no clear relieving or exacerbating features. She describes the pain as sharp and achy in nature. There is some urinary frequency but no urgency, dysuria hematuria. She does complain of a vaginal smell but no discharge or bleeding. She denies any back or flank pain. When she has more severe symptoms, she does get a slight lightheadedness but that resolves when the pain episode resolves. She has also been complaining of upper abdominal pain. This been going on for several months. Is worse with eating. The pain does not radiate. Not associated with nausea, vomiting, diarrhea. Patient describes the pain as achy. She does have history of gastritis but this pain is different. <Evangelista Walters MD - Last Filed: 02/13/23 17:28> Related Data Home medications: Home Medications Medication Instructions Recorded Confirmed lactulose 10 gram/15 mL oral 10 g PO BEDTIME prn constipatio 11/08/22 solution polyethylene glycol 3350 17 gram 17 g PO DAILY PRN constipation 11/08/22 oral powder packet (Purelax) Previous Rx's Medication Instructions Recorded triamcinolone acetonide 0.1 % 1 appl topical DAILY 15 days #30 04/24/22 topical cream grams acetaminophen 500 mg tablet 500 mg PO QID pain 30 days #120 07/31/22 tabs esomeprazole magnesium 40 mg 40 mg PO DAILY 90 days #90 caps 10/02/22 capsule,delayed release losartan 50 mg tablet 50 mg PO DAILY 90 days #90 tabs 10/23/22 peg-electrolyte solution 420 gram 240 ml PO Q10M #4,000 mL 11/08/22 oral solution dulaglutide 0.75 mg/0.5 mL 0.75 mg (0.5 mL) subcut QWEEK 4 12/29/22 subcutaneous pen injector weeks #2 mL (Trulicity) atorvastatin 40 mg tablet 40 mg PO DAILY #90 tabs 01/10/23 metformin 500 mg tablet,extended 1,000 mg PO DAILY 90 days #180 tabs 01/12/23 release 24 hr metronidazole 500 mg tablet 500 mg PO BID #14 tabs 02/13/23 <Rere Jimenez NP - Last Filed: 02/13/23 11:24> Allergies/adverse reactions: Allergies Allergy/AdvReac Type Severity Reaction Status Date / Time dicyclomine [From BENTYL] Allergy Unknown HIVES Verified 11/08/22 12:13 hydrocodone [HYDROCODONE] Allergy Unknown UNKNOWN Verified 11/08/22 12:13 ibuprofen [From MOTRIN] Allergy Unknown HIVES Verified 11/08/22 12:13 Iodinated Contrast Media Allergy Unknown ITCHING Verified 11/08/22 12:13 [IV CONTRAST] minocycline [MINOCYCLINE] Allergy Unknown UNK Verified 11/08/22 12:13 morphine [MORPHINE] Allergy Unknown UNKNOWN Verified 11/08/22 12:13 naproxen [NAPROXEN] Allergy Unknown UNKOWN Verified 11/08/22 12:13 peanut [PEANUT] Allergy Unknown HIVES Verified 11/08/22 12:13 sulfamethoxazole Allergy Unknown UNKNOWN Verified 11/08/22 12:13 [From BACTRIM] tramadol [TRAMADOL] Allergy Unknown UNK Verified 11/08/22 12:13 trimethoprim [From BACTRIM] Allergy Unknown UNKNOWN Verified 11/08/22 12:13 lisinopril Allergy Abdominal Verified 02/13/23 11:22 Pain amitriptyline [AMITRIPTYLINE] AdvReac Mild HYPER Verified 11/08/22 12:13 metoclopramide [From REGLAN] AdvReac Mild HYPER Verified 11/08/22 12:13 latex [LATEX] AdvReac Unknown RASH Verified 11/08/22 12:13 phenylephrine [PHENYLEPHRINE] AdvReac Unknown UNKNOWN Verified 11/08/22 12:13 promethazine [From PHENERGAN] AdvReac Unknown UNK Verified 11/08/22 12:13 From REGLAN Allergy Unknown UNKNOWN Uncoded 11/08/22 12:13 SHELLFISH Allergy Unknown HIVES Uncoded 11/08/22 12:13 <Rere Jimenez NP - Last Filed: 02/13/23 11:24> [facility] Past Medical History Medical History: Medical History Diabetes GERD (gastroesophageal reflux disease) HTN (hypertension) Migraine <Rere Jimenez NP - Last Filed: 02/13/23 11:24> Surgical History: Surgical History History of esophagogastroduodenoscopy (EGD) Hx of colonoscopy S/P carpal tunnel release <Rere Jimenez NP - Last Filed: 02/13/23 11:24> Family History Family History: Family History Maternal Grandmother Colon cancer <Rere Jimenez NP - Last Filed: 02/13/23 11:24> Social History Social History: Social History Housing: Apartment Alcohol intake: unknown Patient Tobacco Use Status: Never used Tobacco e-Cigarette/Vaping Use: Never Used Advance Directives: No service: No Current occupational status: disabled Cognitive needs: No Hearing needs: No Vision needs: No <Rere Jimenez NP - Last Filed: 02/13/23 11:24> Physical Exam ED Vital Signs: Vital Signs - 24 hr 02/13/23 11:22 02/13/23 12:07 02/13/23 12:25 Temperature 98 F 98.3 F Pulse Rate 78 74 76 Respiratory Rate 19 20 17 Blood Pressure 141/82 H 143/79 H 133/67 Pulse Oximetry 99 97 96 Oxygen Delivery Method Room Air Room Air Room Air 02/13/23 15:40 Temperature 97.6 F Pulse Rate 70 Respiratory Rate 17 Blood Pressure 139/77 Pulse Oximetry 93 Oxygen Delivery Method Room Air BMI result Body Mass Index 29.0 <Rere Jimenez NP - Last Filed: 02/13/23 11:24> Vital Signs - 24 hr 02/13/23 11:22 02/13/23 12:07 02/13/23 12:25 Temperature 98 F 98.3 F Pulse Rate 78 74 76 Respiratory Rate 19 20 17 Blood Pressure 141/82 H 143/79 H 133/67 Pulse Oximetry 99 97 96 Oxygen Delivery Method Room Air Room Air Room Air 02/13/23 15:40 Temperature 97.6 F Pulse Rate 70 Respiratory Rate 17 Blood Pressure 139/77 Pulse Oximetry 93 Oxygen Delivery Method Room Air BMI result Body Mass Index 29.0 <Evangelista Walters MD - Last Filed: 02/13/23 17:28> GEN: Well developed, no acute distress, alert, oriented HEENT: Normocephalic, atraumatic, normal external ears, nose appears normal, no oropharyngeal edema or exudates Eyes: Normal to appearance Neck: Supple, no lymphadenopathy Respiratory: Talks in complete sentences, no respiratory distress, clear to auscultation bilaterally Cardiovascular: Regular rate and rhythm, no murmurs rubs or gallops Abdomen: Soft, nontender, nondistended, no guarding, no rebound Back: No CVA tenderness Extremities: No clubbing cyanosis or edema Neurologic: No focal neurologic deficits, cranial nerves 2-12 intact, strength is 5/5 bilaterally, gait normal Skin: No rash <Evangelista Walters MD - Last Filed: 02/13/23 17:28> Course Course Course Narrative: This is a rapid medical exam. deferred additional HPI, ROS, PE to primary provider. 67 yo female with history of DM, HTN, migraines, renal colic here with upper and lower abdominal pain, foul smell to urine x 1 week. No fever, vomiting, back pain, diarrhea, constipation. Will obtain labs, UA, covid screen. VSS <Rere Jimenez NP - Last Filed: 02/13/23 11:24> Reevaluation(s) Reevaluation #1: Laboratory analysis was unremarkable for any etiology of her symptoms. There is no evidence of UTI. Patient will require an ultrasound both transvaginal as well as abdominal to rule out multitude of differential diagnoses. <Evangelista Walters MD - Last Filed: 02/13/23 17:28> Time: 13:36 <Evangelista Walters MD - Last Filed: 02/13/23 17:28> Reevaluation #2: Pelvic exam was unremarkable. There was no significant vaginal discharge. Suspect bacterial vaginosis. Will treat likely with metronidazole but will review patient's allergies 1st patient also was noted to have some renal cysts. She has fatty liver changes on ultrasound. Patient will be informed of these findings as well. <Evangelista Walters MD - Last Filed: 02/13/23 17:28> Time: 17:26 <Evangelista Walters MD - Last Filed: 02/13/23 17:28> Medical Decision Making Medical Decision Making [facility] Narrative: 67-year-old female presents with abdominal pain. Patient has 2 separate complaints 1 of upper abdominal symptoms and low end of lower abdominal symptoms. Regarding the upper abdominal symptoms. The symptoms are moderate in nature. They have been going on for several months. Her examination is benign with negative Honeycutt sign. Her symptoms do appear to be worse with eating. This is possible biliary, gastritis, peptic ulcer, gastric ulcer, IBD, IBS. Will order an ultrasound to rule out biliary colic as well as other possible diagnoses. Patient is also complaining of pelvic pain. This is the predominant symptom that brought her in today. Her pain is been going on for 1 week. Her examination is benign. Will order a transvaginal ultrasound to rule out a natomical issue. <Evangelista Walters MD - Last Filed: 02/13/23 17:28> Differential Diagnosis Differential Diagnoses: The differential diagnosis associated with the presentation includes (Biliary colic, gastritis, peptic ulcer, gastric ulcer, IBD, IBS, bacterial overgrowth, renal, nephrolithiasis, ovarian cyst, pelvic pathology) <Evangelista Walters MD - Last Filed: 02/13/23 17:28> Admission/Observation Consideration of admission/observation: Escalation of care including admission/observation considered <Evangelista Walters MD - Last Filed: 02/13/23 17:28> Lab Data [facility] Lab Attestation statement: I reviewed the patient's lab results. <Evangelista Walters MD - Last Filed: 02/13/23 17:28> Result Diagrams: 02/13/23 11:36 02/13/23 11:36 <Rere Jimenez, PATIENT CARE PROVIDER - Last Filed: 02/13/23 11:24> Labs: Lab Results 02/13/23 02/13/23 02/13/23 Range/Units 11:36 11:36 11:36 WBC 7.0 (4.8-10.8) X10*3/uL RBC 4.60 (4.20-5.50) X10*6/uL Hgb 12.6 (12.0-16.0) g/dl Hct 39.2 (37.0-47.0) % MCV 85.2 (80.0-98.0) fL MCH 27.4 (27.0-33.0) pg MCHC 32.1 (31.0-35.0) g/dl RDW 12.6 (11.0-16.0) % Plt Count 290 (160-400) X10*3/uL MPV 9.2 L (9.4-12.3) fL Immature Gran % (Auto) 0.3 (0.0-0.4) % Neut % (Auto) 57.5 (45-73) % Lymph % (Auto) 33.4 (20-40) % [place]linger % (Auto) 5.5 (2-11) % Eos % (Auto) 2.6 (0-4) % Baso % (Auto) 0.7 (0-2) % Lymph # (Auto) 2.4 (1.2-4.9) X10*3/uL [place]linger # (Auto) 0.4 (0.1-1.2) X10*3/uL Eos # (Auto) 0.2 (0.0-0.4) X10*3/uL Baso # (Auto) 0.1 (0.0-0.2) X10*3/uL Abs Immat Gran (auto) 0.02 (0.00-0.03) X10*3/uL Absolute Neuts (auto) 4.1 (2.0-8.3) x10*3/uL Absolute Nucleated RBC 0.000 (0.0-0.012) X10*3/uL Nucleated RBC % (auto) 0.0 (0.0-0.2) /100WBC Sodium 140 (135-145) mmol/L Potassium 4.0 (3.3-5.1) mmol/L Chloride 106 (96-108) mmol/L Carbon Dioxide 21 L (22-29) mmol/L Anion Gap 17 (12-20) BUN 14 (9-16) mg/dL Creatinine 0.92 (0.5-1.4) mg/dL Estim Creat Clear Calc 58.7 Estimated GFR > 60 Random Glucose 154 H (60-115) mg/dL Calcium 10.0 (8.4-10.2) mg/dL Total Bilirubin 0.9 (0.0-1.0) mg/dL Direct Bilirubin 0.3 (0.0-0.5) mg/dL AST 15 (5-31) U/L ALT 17 (0-31) U/L Alkaline Phosphatase 52 (39-117) U/L Total Protein 7.4 (6.5-8.0) g/dL Albumin 4.5 (3.5-5.0) g/dL Lipase 12 (8-78) U/L Urine Color Urine Appearance Urine pH (5.0-9.0) Ur Specific [place] (1.005-1.025) Urine Protein (Neg-Trace) mg/dL Urine Glucose (UA) (Negative) mg/dL Urine Ketones (Negative) mg/dL Urine Blood (Negative) Urine Nitrite (Negative) Ur Leukocyte Esterase (Negative) COVID-19 (MABEL) Negative (Negative) COVID-19 Clin Com See Note 02/13/23 Range/Units 11:36 WBC (4.8-10.8) X10*3/uL RBC (4.20-5.50) X10*6/uL Hgb (12.0-16.0) g/dl Hct (37.0-47.0) % MCV (80.0-98.0) fL MCH (27.0-33.0) pg MCHC (31.0-35.0) g/dl RDW (11.0-16.0) % Plt Count (160-400) X10*3/uL MPV (9.4-12.3) fL Immature Gran % (Auto) (0.0-0.4) % Neut % (Auto) (45-73) % Lymph % (Auto) (20-40) % Bollinger % (Auto) (2-11) % Eos % (Auto) (0-4) % Baso % (Auto) (0-2) % Lymph # (Auto) (1.2-4.9) X10*3/uL [place]linger # (Auto) (0.1-1.2) X10*3/uL Eos # (Auto) (0.0-0.4) X10*3/uL Baso # (Auto) (0.0-0.2) X10*3/uL Abs Immat Gran (auto) (0.00-0.03) X10*3/uL Absolute Neuts (auto) (2.0-8.3) x10*3/uL Absolute Nucleated RBC (0.0-0.012) X10*3/uL Nucleated RBC % (auto) (0.0-0.2) /100WBC Sodium (135-145) mmol/L Potassium (3.3-5.1) mmol/L Chloride (96-108) mmol/L Carbon Dioxide (22-29) mmol/L Anion Gap (12-20) BUN (9-16) mg/dL Creatinine (0.5-1.4) mg/dL Estim Creat Clear Calc Estimated GFR Random Glucose (60-115) mg/dL Calcium (8.4-10.2) mg/dL Total Bilirubin (0.0-1.0) mg/dL Direct Bilirubin (0.0-0.5) mg/dL AST (5-31) U/L ALT (0-31) U/L Alkaline Phosphatase (39-117) U/L Total Protein (6.5-8.0) g/dL Albumin (3.5-5.0) g/dL Lipase (8-78) U/L Urine Color Yellow Urine Appearance Clear Urine pH 6.5 (5.0-9.0) Ur Specific [place] 1.015 (1.005-1.025) Urine Protein Negative (Neg-Trace) mg/dL Urine Glucose (UA) Negative (Negative) mg/dL Urine Ketones Negative (Negative) mg/dL Urine Blood Negative (Negative) Urine Nitrite Negative (Negative) Ur Leukocyte Esterase Negative (Negative) COVID-19 (MABEL) (Negative) COVID-19 Clin Com <Rere Jimenez NP - Last Filed: 02/13/23 11:24> Lab Results 02/13/23 02/13/23 02/13/23 Range/Units 11:36 11:36 11:36 WBC 7.0 (4.8-10.8) X10*3/uL RBC 4.60 (4.20-5.50) X10*6/uL Hgb 12.6 (12.0-16.0) g/dl Hct 39.2 (37.0-47.0) % MCV 85.2 (80.0-98.0) fL MCH 27.4 (27.0-33.0) pg MCHC 32.1 (31.0-35.0) g/dl RDW 12.6 (11.0-16.0) % Plt Count 290 (160-400) X10*3/uL MPV 9.2 L (9.4-12.3) fL Immature Gran % (Auto) 0.3 (0.0-0.4) % Neut % (Auto) 57.5 (45-73) % Lymph % (Auto) 33.4 (20-40) % Bollinger % (Auto) 5.5 (2-11) % Eos % (Auto) 2.6 (0-4) % Baso % (Auto) 0.7 (0-2) % Lymph # (Auto) 2.4 (1.2-4.9) X10*3/uL [place]linger # (Auto) 0.4 (0.1-1.2) X10*3/uL Eos # (Auto) 0.2 (0.0-0.4) X10*3/uL Baso # (Auto) 0.1 (0.0-0.2) X10*3/uL Abs Immat Gran (auto) 0.02 (0.00-0.03) X10*3/uL Absolute Neuts (auto) 4.1 (2.0-8.3) x10*3/uL Absolute Nucleated RBC 0.000 (0.0-0.012) X10*3/uL Nucleated RBC % (auto) 0.0 (0.0-0.2) /100WBC Sodium 140 (135-145) mmol/L Potassium 4.0 (3.3-5.1) mmol/L Chloride 106 (96-108) mmol/L Carbon Dioxide 21 L (22-29) mmol/L Anion Gap 17 (12-20) BUN 14 (9-16) mg/dL Creatinine 0.92 (0.5-1.4) mg/dL Estim Creat Clear Calc 58.7 Estimated GFR > 60 Random Glucose 154 H (60-115) mg/dL Calcium 10.0 (8.4-10.2) mg/dL Total Bilirubin 0.9 (0.0-1.0) mg/dL Direct Bilirubin 0.3 (0.0-0.5) mg/dL AST 15 (5-31) U/L ALT 17 (0-31) U/L Alkaline Phosphatase 52 (39-117) U/L Total Protein 7.4 (6.5-8.0) g/dL Albumin 4.5 (3.5-5.0) g/dL Lipase 12 (8-78) U/L Urine Color Urine Appearance Urine pH (5.0-9.0) Ur Specific [place] (1.005-1.025) Urine Protein (Neg-Trace) mg/dL Urine Glucose (UA) (Negative) mg/dL Urine Ketones (Negative) mg/dL Urine Blood (Negative) Urine Nitrite (Negative) Ur Leukocyte Esterase (Negative) COVID-19 (MABEL) Negative (Negative) COVID-19 Clin Com See Note 02/13/23 Range/Units 11:36 WBC (4.8-10.8) X10*3/uL RBC (4.20-5.50) X10*6/uL Hgb (12.0-16.0) g/dl Hct (37.0-47.0) % MCV (80.0-98.0) fL MCH (27.0-33.0) pg MCHC (31.0-35.0) g/dl RDW (11.0-16.0) % Plt Count (160-400) X10*3/uL MPV (9.4-12.3) fL Immature Gran % (Auto) (0.0-0.4) % Neut % (Auto) (45-73) % Lymph % (Auto) (20-40) % [place]linger % (Auto) (2-11) % Eos % (Auto) (0-4) % Baso % (Auto) (0-2) % Lymph # (Auto) (1.2-4.9) X10*3/uL [place] # (Auto) (0.1-1.2) X10*3/uL Eos # (Auto) (0.0-0.4) X10*3/uL Baso # (Auto) (0.0-0.2) X10*3/uL Abs Immat Gran (auto) (0.00-0.03) X10*3/uL Absolute Neuts (auto) (2.0-8.3) x10*3/uL Absolute Nucleated RBC (0.0-0.012) X10*3/uL Nucleated RBC % (auto) (0.0-0.2) /100WBC Sodium (135-145) mmol/L Potassium (3.3-5.1) mmol/L Chloride (96-108) mmol/L Carbon Dioxide (22-29) mmol/L Anion Gap (12-20) BUN (9-16) mg/dL Creatinine (0.5-1.4) mg/dL Estim Creat Clear Calc Estimated GFR Random Glucose (60-115) mg/dL Calcium (8.4-10.2) mg/dL Total Bilirubin (0.0-1.0) mg/dL Direct Bilirubin (0.0-0.5) mg/dL AST (5-31) U/L ALT (0-31) U/L Alkaline Phosphatase (39-117) U/L Total Protein (6.5-8.0) g/dL Albumin (3.5-5.0) g/dL Lipase (8-78) U/L Urine Color Yellow Urine Appearance Clear Urine pH 6.5 (5.0-9.0) Ur Specific [place] 1.015 (1.005-1.025) Urine Protein Negative (Neg-Trace) mg/dL Urine Glucose (UA) Negative (Negative) mg/dL Urine Ketones Negative (Negative) mg/dL Urine Blood Negative (Negative) Urine Nitrite Negative (Negative) Ur Leukocyte Esterase Negative (Negative) COVID-19 ([facility]EL) (Negative) COVID-19 Clin Com <Evangelista Walters MD - Last Filed: 02/13/23 17:28> Independent Interpretation I performed an independent interpretation of an: Ultrasound <Evangelista Walters MD - Last Filed: 02/13/23 17:28> Radiology Impression Discussion of test interpretation with radiology: I have reviewed the radiologist's reading. ( US/US pelvic and transvaginal IMPRESSION: 1. Bilateral simple renal cysts. 2. There is a nonobstructive echogenic stone lower pole right kidney. 3. Hepatic steatosis with focal fatty sparing around the gallbladder. 4. The uterus is retroverted and retroflexed. The endometrium) <Evangelista Walters MD - Last Filed: 02/13/23 17:28> Tests considered The following testing was considered but not selected: CT scan the abdomen <Evangelista Walters MD - Last Filed: 02/13/23 17:28> Prescription Management I considered prescription management with: Pain Medication <Evangelista Walters MD - Last Filed: 02/13/23 17:28> Discharge Plan Discharge Clinical Impression: Abdominal pain, Bacterial vaginosis, Renal cyst, Fatty liver <Rere Jimenez NP - Last Filed: 02/13/23 11:24> Patient Disposition: Home, Self-Care <Rere Jimenez NP - Last Filed: 02/13/23 11:24> Instructions: Bacterial Vaginosis (ED), Non-Alcoholic Fatty Liver Disease (ED), Abdominal Pain (ED), Kidney Cyst (ED) <Rere Jimenez NP - Last Filed: 02/13/23 11:24> Prescriptions: New metronidazole 500 mg tablet 500 mg PO BID Qty: 14 0RF No Action esomeprazole magnesium 40 mg capsule,delayed release(DR/EC) 40 mg PO DAILY 90 Days Qty: 90 1RF Trulicity 0.75 mg/0.5 mL pen injector 0.75 mg subcut QWEEK 28 Days Qty: 2 1RF atorvastatin 40 mg tablet 40 mg PO DAILY Qty: 90 1RF metformin 500 mg tablet extended release 24 hr 1,000 mg PO DAILY 90 Days Qty: 180 1RF acetaminophen 500 mg tablet 500 mg PO QID 30 Days Qty: 120 0RF losartan 50 mg tablet 50 mg PO DAILY 90 Days Qty: 90 1RF triamcinolone acetonide 0.1 % cream 1 appl topical DAILY 15 Days Qty: 30 1RF lactulose 10 gram/15 mL solution 10 g PO BEDTIME Rx Instructions: stop if you develop diarrhea polyethylene glycol 3350 [Purelax] 17 gram powder in packet 17 g PO DAILY PRN (Reason: constipation) peg-electrolyte soln 420 gram recon soln 240 ml PO Q10M Qty: 4000 0RF Rx Instructions: until fecal effluent is clear; do not exceed a total volume of 2,000 mL <Rere Jimenez NP - Last Filed: 02/13/23 11:24> Referrals: Kay Wood MD [Primary Care Provider] - 1 week <Rere Jimenez NP - Last Filed: 02/13/23 11:24>
[2023-02-13 11:22] VITALS: BP 141/82; PULSE 78; RESP 19; TEMP 36.6; O2SAT 99; BMI 29.0
[2023-02-13 11:44] LABS: MANUAL DIFF FLAG NO
[2023-02-13 11:47] LABS: Basophils Absolute Auto 0.1 X10*3/uL (0.0-0.2); Basophils Percent Auto 0.7 % (0-2); Eosinophils Absolute Auto 0.2 X10*3/uL (0.0-0.4); Eosinophils Percent Auto 2.6 % (0-4); Hematocrit 39.2 % (37.0-47.0); Hemoglobin 12.6 g/dl (12.0-16.0); Imm Gran Abs Auto 0.02 X10*3/uL (0.00-0.03); Imm Gran Pct Auto 0.3 % (0.0-0.4); Lymphocytes Absolute Auto 2.4 X10*3/uL (1.2-4.9); Lymphocytes Percent Auto 33.4 % (20-40); Mean Corpuscular HGB Conc 32.1 g/dl (31.0-35.0); Mean Corpuscular Hemoglobin 27.4 pg (27.0-33.0); Mean Corpuscular Volume 85.2 fL (80.0-98.0); Mean Platelet Volume 9.2 fL (9.4-12.3); Monocytes Absolute Auto 0.4 X10*3/uL (0.1-1.2); Monocytes Percent Auto 5.5 % (2-11); Neutrophils Absolute Auto 4.1 x10*3/uL (2.0-8.3); Neutrophils Percent Auto 57.5 % (45-73); Platelet Count 290 X10*3/uL (160-400); Red Cell Distribution Width 12.6 % (11.0-16.0)
[2023-02-13 11:50] LABS: Appearance Urine Clear; Color Urine Yellow; Glucose Urine UA Negative (Negative); Leukocyte Esterase Urine Negative (Negative); Nitrite Urine Negative (Negative); PH 6.5 (5.0-9.0); Specific Gravity - Urine 1.015 (1.005-1.025); Urine Blood Negative (Negative); Urine Ketones Negative (Negative); Urine Protein Negative (Neg-Trace)
[2023-02-13 12:02] LABS: Alanine Aminotransferase 17 U/L (0-31); Albumin Level 4.5 g/dL (3.5-5.0); Alkaline Phosphatase 52 U/L (39-117); Anion Gap 17 (12-20); Aspartate Amino Transferase 15 U/L (5-31); Bilirubin Direct 0.3 mg/dL (0.0-0.5); Bilirubin Total 0.9 mg/dL (0.0-1.0); Blood Urea Nitrogen 14 mg/dL (9-16); Carbon Dioxide 21 mmol/L (22-29); Chloride 106 mmol/L (96-108); Creatinine Clr Calc Pharmacy 58.7; Estimated Glomerular Filt Rate > 60; Glucose Random 154 mg/dL (60-115); Lipase 12 U/L (8-78); Sodium 140 mmol/L (135-145); Total Protein 7.4 g/dL (6.5-8.0)
--- NOTE | 2023-02-13 12:05 | PC.NURSE ---
Pt reporting n/v/abd pain/vaginal odor x5days, reporting when pain gets really bad she does get dizzy. Denies appitite changes, GOYAL, or any other neurological changes at this time. Labs obtained, awaiting further orders
[2023-02-13 12:07] VITALS: BP 143/79; PULSE 74; RESP 20; TEMP 36.8; O2SAT 97
[2023-02-13 12:25] VITALS: BP 133/67; PULSE 76; RESP 17; O2SAT 96
[2023-02-13 12:25] LABS: COVID-19 Test Negative (Negative); IDNOW Serial# 9DB6401D
[2023-02-13 15:40] VITALS: BP 139/77; PULSE 70; RESP 17; TEMP 36.4; O2SAT 93
== END 2023-02-13 17:34 | disposition home or self-care (01) ==
PROVIDERS: Nurse Practitioner Family; Emergency Provider Emergency Medicine; PCP Internal Medicine
DX: N76.0 Acute vaginitis (principal); K76.0 Fatty (change of) liver, not elsewhere classified; R10.2 Pelvic and perineal pain; Z20.822 Contact with and (suspected) exposure to COVID-19; Z20.828 Contact with and (suspected) exposure to other viral communicable diseases; Z79.899 Other long term (current) drug therapy
CPT/HCPCS: 76700; 76830; 76856; 80048; 80076; 81003; 83690; 85025; 87635; 99284

== ENCOUNTER 2023-02-17 00:19 | Emergency (ER) | payer OTHER, SELFPAY ==
[2023-02-17 01:19] VITALS: BP 126/78; PULSE 83; RESP 16; TEMP 36.8; O2SAT 96; BMI 29.0
[2023-02-17] MEDS: methylPREDNISolone Sod Succ 125 MG/2 ML VIAL IVPUSH (02:02)
[2023-02-17] MEDS: diphenhydrAMINE HCL 50 MG/ML VIAL 25 MG IVPUSH (02:02)
--- NOTE | 2023-02-17 02:09 | PC.NURSE ---
Pt aox4, resting at the bedside in no apparent distress. Breaths are even regular and unlabored. Reports allergic reaction to Flagyl with generalized rash and voice changes. IV line started with 20G on the L FA. Medicated as ordered. Tolerated well.
--- NOTE | 2023-02-17 03:43 | ED.ALLEREA ---
HPI - Allergic Reaction General Chief complaint: Allergic Reaction Stated complaint: throat pain from meds Time Seen by Provider: 02/17/23 03:31 Source: patient Mode of arrival: ambulatory Limitations: no limitations History of Present Illness HPI narrative: 59-year-old female who presents emergency department for evaluation of allergic reaction. The patient was seen in the emergency department on 02/13/2023 for abdominal pain and pelvic pain. Patient had laboratory evaluation, abdominal ultrasound and pelvic ultrasound which were unremarkable. The patient was treated for bacterial vaginosis with Flagyl 500 mg b.i.d.. The patient states that she took Flagyl for 2 and half days and then developed hives on her arms and abdomen. She states the hives were very itchy. She did take Benadryl and this did give her some relief of the itchiness and did improve the rash. She states that she had some slight throat tightness but denied shortness of breath, difficulty swallowing, nausea or vomiting. Related Data Home Medications Medication Instructions Recorded Confirmed lactulose 10 gram/15 mL oral 10 g PO BEDTIME prn constipatio 11/08/22 solution polyethylene glycol 3350 17 gram 17 g PO DAILY PRN constipation 11/08/22 oral powder packet (Purelax) Previous Rx's Medication Instructions Recorded triamcinolone acetonide 0.1 % 1 appl topical DAILY 15 days #30 04/24/22 topical cream grams acetaminophen 500 mg tablet 500 mg PO QID pain 30 days #120 07/31/22 tabs esomeprazole magnesium 40 mg 40 mg PO DAILY 90 days #90 caps 10/02/22 capsule,delayed release losartan 50 mg tablet 50 mg PO DAILY 90 days #90 tabs 10/23/22 peg-electrolyte solution 420 gram 240 ml PO Q10M #4,000 mL 11/08/22 oral solution dulaglutide 0.75 mg/0.5 mL 0.75 mg (0.5 mL) subcut QWEEK 4 12/29/22 subcutaneous pen injector weeks #2 mL (Trulicity) atorvastatin 40 mg tablet 40 mg PO DAILY #90 tabs 01/10/23 metformin 500 mg tablet,extended 1,000 mg PO DAILY 90 days #180 tabs 01/12/23 release 24 hr metronidazole 500 mg tablet 500 mg PO BID #14 tabs 02/13/23 prednisone 20 mg tablet 40 mg PO DAILY 5 days #10 tabs 02/17/23 Allergies Allergy/AdvReac Type Severity Reaction Status Date / Time dicyclomine [From BENTYL] Allergy Unknown HIVES Verified 11/08/22 12:13 hydrocodone [HYDROCODONE] Allergy Unknown UNKNOWN Verified 11/08/22 12:13 ibuprofen [From MOTRIN] Allergy Unknown HIVES Verified 11/08/22 12:13 Iodinated Contrast Media Allergy Unknown ITCHING Verified 11/08/22 12:13 [IV CONTRAST] minocycline [MINOCYCLINE] Allergy Unknown UNK Verified 11/08/22 12:13 morphine [MORPHINE] Allergy Unknown UNKNOWN Verified 11/08/22 12:13 naproxen [NAPROXEN] Allergy Unknown UNKOWN Verified 11/08/22 12:13 peanut [PEANUT] Allergy Unknown HIVES Verified 11/08/22 12:13 sulfamethoxazole Allergy Unknown UNKNOWN Verified 11/08/22 12:13 [From BACTRIM] tramadol [TRAMADOL] Allergy Unknown UNK Verified 11/08/22 12:13 trimethoprim [From BACTRIM] Allergy Unknown UNKNOWN Verified 11/08/22 12:13 lisinopril Allergy Abdominal Verified 02/13/23 11:22 Pain amitriptyline [AMITRIPTYLINE] AdvReac Mild HYPER Verified 11/08/22 12:13 metoclopramide [From REGLAN] AdvReac Mild HYPER Verified 11/08/22 12:13 latex [LATEX] AdvReac Unknown RASH Verified 11/08/22 12:13 phenylephrine [PHENYLEPHRINE] AdvReac Unknown UNKNOWN Verified 11/08/22 12:13 promethazine [From PHENERGAN] AdvReac Unknown UNK Verified 11/08/22 12:13 From REGLAN Allergy Unknown UNKNOWN Uncoded 11/08/22 12:13 SHELLFISH Allergy Unknown HIVES Uncoded 11/08/22 12:13 Review of Systems Review of Systems: Yes all other systems are reviewed and are negative PMFSH Past Medical History Medical History Diabetes GERD (gastroesophageal reflux disease) HTN (hypertension) Migraine Surgical History History of esophagogastroduodenoscopy (EGD) Hx of colonoscopy S/P carpal tunnel release Family History Family History Maternal Grandmother Colon cancer Social History Social History Housing: Apartment Alcohol intake: unknown Patient Tobacco Use Status: Never used Tobacco e-Cigarette/Vaping Use: Never Used Advance Directives: No Advance Directives Information Provided: Yes service: No Current occupational status: disabled Cognitive needs: No Hearing needs: No Vision needs: No Physical Exam ED Vital Signs: Vital Signs - 24 hr 02/17/23 01:19 Temperature 98.2 F Pulse Rate 83 Respiratory Rate 16 Blood Pressure 126/78 Pulse Oximetry 96 Oxygen Delivery Method Room Air BMI result Body Mass Index 29.0 Const General: cooperative and no acute distress Orientation/consciousness: oriented to person and oriented to place Limitations: no limitations HENMT Head: Yes normal to inspection, Yes normocephalic and Yes atraumatic Ears: external ears normal General nose exam: Normal external nose present Face and sinus: Yes normal facial exam Mouth: Normal oral and palatal mucosa present Throat: Yes posterior oropharynx normal Eyes General: appearance normal, both eyes and all related structures Pupils: Equal, round and reactive pupils present Neck Neck: Yes normal visual inspection, Yes no lymphadenopathy, Yes trachea midline and Yes supple Chest Chest palpation & inspection: normal inspection of the chest and normal palpation of entire chest wall Resp Effort & Inspection: normal respiratory effort and able to speak in complete sentences Auscultation: clear to auscultation bilaterally Cardio Rate: regular rate Rhythm: regular rhythm Heart sounds: S1 normal heart sound present, S2 normal heart sound present and no murmurs GI Inspection: Yes normal to inspection Palpation (GI): Soft to palpation, nontender and no guarding Auscultation: normal bowel sounds General: Yes no CVA tenderness Back/Spine/Pelvis Back: no CVA tenderness Skin General skin exam: no rashes or lesions noted Neuro General: oriented to person and oriented to place Cranial nerves: Yes CN's II-XII intact bilaterally and Yes Equal, round and reactive pupils present Cognition (Neuro): normal cognition Motor exam (neuro): 5/5 motor strength present throughout Extrem General: Yes normal to inspection Psych Appearance: grossly normal Speech and movement: Normal speech and movement present Affect: normal affect Attitude: cooperative Thought process: Normal thought process present Thought content: Normal thought content present Medications Administered Discontinued Medications Generic Name Dose Route Start Last Admin Trade Name Leena PRN Reason Stop Dose Admin Diphenhydramine HCl 25 mg 02/17/23 01:37 02/17/23 02:02 Diphenhydramine Hcl 50 Mg/Ml Vial IVPUSH 02/17/23 01:38 25 mg ONCE ONE Administration Methylprednisolone Sodium Succinate 125 mg 02/17/23 01:37 02/17/23 02:02 Methylprednisolone Sod Succ 125 Mg/2 Ml Vial IVPUSH 02/17/23 01:38 125 mg ONCE ONE Administration Medical Decision Making Medical Decision Making MDM Narrative: 67-year-old female who presents emergency department for evaluation of hives and pruritus most likely secondary to Flagyl (metronidazole) is which she was taking for bacterial vaginosis. The patient does have extensive allergies. The rash did with Benadryl that she took at home. Here in the emergency department she was given Benadryl 25 mg IV and Solu-Medrol 125 mg IV. At the time my evaluation the patient's rash resolved and she was feeling better. Patient was discharged home with a prescription for prednisone 40 mg once a day for 5 days. She was advised to continue taking Benadryl. She was given printed and verbal instructions on allergic reactions and discharged home. Discharge Plan Discharge Clinical Impression: Allergic reaction Patient Disposition: Home, Self-Care Instructions: General Allergic Reaction (ED) Additional Instructions: You received Benadryl 25 mg IV. You received Solu-Medrol 125 mg IV (this is a steroid that should last for 24 hours). Stop taking the Flagyl (metronidazole). You should add this medication to your list of allergies. Take Benadryl (diphenhydramine) 25 mg pills, 2 pills 4 times a day for the next 2-3 days to help reduce the swelling and itchiness in the area of your rash. This medication will make you sleepy. Do not drive or work while taking this medication. Take prednisone 20 mg pills, 2 pills once a day for 5 days. While you are taking prednisone, do not take any NSAIDs (Motrin, Advil, ibuprofen, Aleve, naproxen). Take your next dose of prednisone Friday morning, 02/17/2023. Follow-up with your doctor in 2 days. Please return to the emergency department if your symptoms get worse or if you develop any symptoms that are concerning to you. Prescriptions: New prednisone 20 mg tablet 40 mg PO DAILY 5 Days Qty: 10 0RF No Action esomeprazole magnesium 40 mg capsule,delayed release(DR/EC) 40 mg PO DAILY 90 Days Qty: 90 1RF Trulicity 0.75 mg/0.5 mL pen injector 0.75 mg subcut QWEEK 28 Days Qty: 2 1RF atorvastatin 40 mg tablet 40 mg PO DAILY Qty: 90 1RF metformin 500 mg tablet extended release 24 hr 1,000 mg PO DAILY 90 Days Qty: 180 1RF metronidazole 500 mg tablet 500 mg PO BID Qty: 14 0RF acetaminophen 500 mg tablet 500 mg PO QID 30 Days Qty: 120 0RF losartan 50 mg tablet 50 mg PO DAILY 90 Days Qty: 90 1RF triamcinolone acetonide 0.1 % cream 1 appl topical DAILY 15 Days Qty: 30 1RF lactulose 10 gram/15 mL solution 10 g PO BEDTIME Rx Instructions: stop if you develop diarrhea polyethylene glycol 3350 [Purelax] 17 gram powder in packet 17 g PO DAILY PRN (Reason: constipation) peg-electrolyte soln 420 gram recon soln 240 ml PO Q10M Qty: 4000 0RF Rx Instructions: until fecal effluent is clear; do not exceed a total volume of 2,000 mL
== END 2023-02-17 04:30 | disposition home or self-care (01) ==
PROVIDERS: Emergency Provider Emergency Medicine Emergency Medical Services; PCP Physician Assistant
DX: L50.9 Urticaria, unspecified (principal); L29.9 Pruritus, unspecified; T78.40XA Allergy, unspecified, initial encounter; X58.XXXA Exposure to other specified factors, initial encounter
CPT/HCPCS: 96374; 96375; 99283; 99284; J1200; J2930

== ENCOUNTER 2023-03-17 00:50 | Emergency (ER) | payer OTHER, SELFPAY ==
[2023-03-17 01:01] VITALS: BP 140/74; PULSE 79; RESP 18; TEMP 36.7; O2SAT 97; BMI 29.0
--- NOTE | 2023-03-17 01:27 | ED.ALLEREA ---
HPI - Allergic Reaction General Chief complaint: Allergic Reaction Stated complaint: Hives Time Seen by Provider: 03/17/23 01:17 History of Present Illness HPI narrative: Patient is a 67-year-old female presented today with having rash over her body rash over her nose. Denies any shortness of breath denies any changes in her voice. Denies any nausea vomiting. Patient took some Benadryl prior to arrival. She has multitude of allergies. Patient claims that she took a new [place] prior to arrival was worried that was causing her allergies. Patient has no fever no chills no shortness of breath no diaphoresis. Claims the rash has improved dramatically after Benadryl was used. Related Data Home Medications Medication Instructions Recorded Confirmed lactulose 10 gram/15 mL oral 10 g PO BEDTIME prn constipatio 11/08/22 solution polyethylene glycol 3350 17 gram 17 g PO DAILY PRN constipation 11/08/22 oral powder packet (Purelax) Previous Rx's Medication Instructions Recorded triamcinolone acetonide 0.1 % 1 appl topical DAILY 15 days #30 04/24/22 topical cream grams peg-electrolyte solution 420 gram 240 ml PO Q10M #4,000 mL 11/08/22 oral solution dulaglutide 0.75 mg/0.5 mL 0.75 mg (0.5 mL) subcut QWEEK 4 12/29/22 subcutaneous pen injector weeks #2 mL (Trulicity) atorvastatin 40 mg tablet 40 mg PO DAILY #90 tabs 01/10/23 metformin 500 mg tablet,extended 1,000 mg PO DAILY 90 days #180 tabs 01/12/23 release 24 hr metronidazole 500 mg tablet 500 mg PO BID #14 tabs 02/13/23 prednisone 20 mg tablet 40 mg PO DAILY 5 days #10 tabs 02/17/23 acetaminophen 500 mg tablet 500 mg PO QID pain 30 days #120 02/18/23 tabs esomeprazole magnesium 40 mg 40 mg PO DAILY 90 days #90 caps 02/18/23 capsule,delayed release losartan 50 mg tablet 50 mg PO DAILY 90 days #90 tabs 02/18/23 blood sugar diagnostic (FreeStyle #100 ea 02/27/23 Test strips) blood-glucose meter (FreeStyle #1 ea 02/27/23 [place] Lite kit) lancets 28 gauge (FreeStyle #100 ea 03/15/23 Lancets) prednisone 20 mg tablet 40 mg PO DAILY #10 tabs 03/17/23 Allergies Allergy/AdvReac Type Severity Reaction Status Date / Time dicyclomine [From BENTYL] Allergy Unknown HIVES Verified 11/08/22 12:13 hydrocodone [HYDROCODONE] Allergy Unknown UNKNOWN Verified 11/08/22 12:13 ibuprofen [From MOTRIN] Allergy Unknown HIVES Verified 11/08/22 12:13 Iodinated Contrast Media Allergy Unknown ITCHING Verified 11/08/22 12:13 [IV CONTRAST] minocycline [MINOCYCLINE] Allergy Unknown UNK Verified 11/08/22 12:13 morphine [MORPHINE] Allergy Unknown UNKNOWN Verified 11/08/22 12:13 naproxen [NAPROXEN] Allergy Unknown UNKOWN Verified 11/08/22 12:13 peanut [PEANUT] Allergy Unknown HIVES Verified 11/08/22 12:13 sulfamethoxazole Allergy Unknown UNKNOWN Verified 11/08/22 12:13 [From BACTRIM] tramadol [TRAMADOL] Allergy Unknown UNK Verified 11/08/22 12:13 trimethoprim [From BACTRIM] Allergy Unknown UNKNOWN Verified 11/08/22 12:13 lisinopril Allergy Abdominal Verified 02/13/23 11:22 Pain metronidazole [From Flagyl] Allergy Hives Verified 03/17/23 01:01 amitriptyline [AMITRIPTYLINE] AdvReac Mild HYPER Verified 11/08/22 12:13 metoclopramide [From REGLAN] AdvReac Mild HYPER Verified 11/08/22 12:13 latex [LATEX] AdvReac Unknown RASH Verified 11/08/22 12:13 phenylephrine [PHENYLEPHRINE] AdvReac Unknown UNKNOWN Verified 11/08/22 12:13 promethazine [From PHENERGAN] AdvReac Unknown UNK Verified 11/08/22 12:13 From REGLAN Allergy Unknown UNKNOWN Uncoded 11/08/22 12:13 SHELLFISH Allergy Unknown HIVES Uncoded 11/08/22 12:13 Review of Systems Review of Systems: No fever no chills no chest pain or shortness breath no change in environment except for taking [place] Yes all other systems are reviewed and are negative PMFSH Past Medical History Attestation statement: The following information was validated with the patient. Medical History Diabetes GERD (gastroesophageal reflux disease) HTN (hypertension) Migraine Surgical History History of esophagogastroduodenoscopy (EGD) Hx of colonoscopy S/P carpal tunnel release Family History Family History Maternal Grandmother Colon cancer Social History Social History Housing: Apartment Alcohol intake: unknown Patient Tobacco Use Status: Never used Tobacco e-Cigarette/Vaping Use: Never Used Advance Directives: No Advance Directives Information Provided: Yes service: No Current occupational status: disabled Cognitive needs: No Hearing needs: No Vision needs: No Physical Exam ED Vital Signs: Vital Signs - 24 hr 03/17/23 01:01 Temperature 98.1 F Pulse Rate 79 Respiratory Rate 18 Blood Pressure 140/74 H Pulse Oximetry 97 Oxygen Delivery Method Room Air BMI result Body Mass Index 29.0 Appearance: Alert. Oriented X3. No acute distress. Eyes: Pupils equal, round and reactive to light. ENT: Pharynx normal. Neck: Normal inspection. Neck supple. No lymph nodes noted. No crepitus CVS: Normal heart rate and rhythm. Pulses normal. Normal S1 and S2 Respiratory: No respiratory distress. Breath sounds normal. No Wheezing. No rales Abdomen: Soft and nontender. No rigidity. No distention. good BS x4 Skin: Skin warm and dry. Normal skin color. Normal skin turgor. Small red raised irregularly bordered rash over the nose over the chest and over the abdomen. All blanching. Extremities: No lower extremity edema. Neurovascular intact to all extremities. No Lacerations. No Rash Neuro: Oriented X 3. No motor deficit. No sensory deficit. Moving all extermities. No slurred speech Medical Decision Making Medical Decision Making MDM Narrative: Question allergic reaction. Patient's symptom has traumatically improved with Benadryl. There is no shortness of breath. There is no change in voice. Patient's lungs are clear. Will give dose of steroid as patient claims that really helped her in the past. Will give a course of steroid on an outpatient basis. She is in stable condition. There is no mucosal membrane involvement. No evidence for Raul [place]ino syndrome Differential Diagnosis Allergic reaction, [place] Chronic Conditions Patient?s care impacted by: Diabetes and Hypertension Discharge Plan Discharge Clinical Impression: Allergic reaction Patient Disposition: Home, Self-Care Instructions: General Allergic Reaction (ED) Prescriptions: New prednisone 20 mg tablet 40 mg PO DAILY Qty: 10 0RF No Action Trulicity 0.75 mg/0.5 mL pen injector 0.75 mg subcut QWEEK 28 Days Qty: 2 1RF atorvastatin 40 mg tablet 40 mg PO DAILY Qty: 90 1RF metformin 500 mg tablet extended release 24 hr 1,000 mg PO DAILY 90 Days Qty: 180 1RF esomeprazole magnesium 40 mg capsule,delayed release(DR/EC) 40 mg PO DAILY 90 Days Qty: 90 1RF acetaminophen 500 mg tablet 500 mg PO QID 30 Days Qty: 120 0RF losartan 50 mg tablet 50 mg PO DAILY 90 Days Qty: 90 1RF (DME) blood-glucose meter [FreeStyle [place] Lite] Kit See Rx Instructions .Route Qty: 1 0RF Rx Instructions: As directed (DME) FreeStyle Test Strip See Rx Instructions .Route Qty: 100 1RF Rx Instructions: As directed (DME) lancets [FreeStyle Lancets] 28 gauge misc See Rx Instructions .ROUTE .MEDSUPPLY Qty: 100 3RF Rx Instructions: As directed metronidazole 500 mg tablet 500 mg PO BID Qty: 14 0RF prednisone 20 mg tablet 40 mg PO DAILY 5 Days Qty: 10 0RF triamcinolone acetonide 0.1 % cream 1 appl topical DAILY 15 Days Qty: 30 1RF lactulose 10 gram/15 mL solution 10 g PO BEDTIME Rx Instructions: stop if you develop diarrhea polyethylene glycol 3350 [Purelax] 17 gram powder in packet 17 g PO DAILY PRN (Reason: constipation) peg-electrolyte soln 420 gram recon soln 240 ml PO Q10M Qty: 4000 0RF Rx Instructions: until fecal effluent is clear; do not exceed a total volume of 2,000 mL Referrals: Celso Mathur PA-C [Primary Care Provider] -
[2023-03-17] MEDS: methylPREDNISolone Sod Succ 125 MG/2 ML VIAL IVPUSH (01:34)
== END 2023-03-17 02:13 | disposition home or self-care (01) ==
PROVIDERS: Emergency Provider Emergency Medicine Emergency Medical Services; PCP Physician Assistant
DX: L50.0 Allergic urticaria (principal); Z79.899 Other long term (current) drug therapy
CPT/HCPCS: 96374; 99282; 99284; J2930

== ENCOUNTER 2023-03-30 19:43 | Emergency (ER) | payer OTHER, SELFPAY ==
--- NOTE | ~2023-03-30 | CT_ITS ---
EXAMINATION: CT ABDOMEN AND PELVIS WITHOUT CONTRAST CLINICAL INFORMATION: Left-sided abdominal pain COMPARISON: Ultrasound abdomen and pelvis 02/13/2023, CT abdomen pelvis 09/18/2021 TECHNIQUE: Multidetector volumetric imaging was performed from the superior aspect of the liver through the pubic symphysis. Sagittal and coronal reformatted images were obtained on the technologist's workstation. This CT examination was performed using dose optimization techniques as appropriate, variously including the following: *Automated exposure control *Adjustment of mA and/or kV according to patient size (this includes techniques or standardized protocols for targeted exams where dose is matched to indication/reason for exam; i.e. extremities or head) *Use of iterative reconstruction technique DLP: 535 mGy-cm FINDINGS: LUNG BASES: The visualized lung bases are unremarkable. LIVER, GALLBLADDER, AND BILIARY TREE: The liver is normal in size, shape, and attenuation. No focal hepatic lesion or biliary ductal dilatation is present. The gallbladder is unremarkable with no evidence of radiopaque gallstones, gallbladder wall thickening, or obvious pericholecystic inflammatory changes. PANCREAS: Unremarkable. SPLEEN: Unremarkable. ADRENAL GLANDS: Unremarkable. KIDNEYS AND URETERS: The kidneys are normal in size, shape, and attenuation. Bilateral Bosniak class I benign simple cysts are present, left greater than right. These need no additional imaging or follow-up. No solid renal masses are detected. No hydronephrosis, hydroureter, or calculi seen. No perinephric stranding. BLADDER: Unremarkable. GASTROINTESTINAL TRACT: Colonic diverticula are present most prominent in the sigmoid. No evidence of diverticulitis. The small and large bowel are otherwise unremarkable. The appendix is unremarkable. ABDOMINAL WALL: Small left inguinal hernia containing only fat. LYMPH NODES: No retroperitoneal lymphadenopathy. VASCULAR: Calcific plaque in the infrarenal aorta and common iliac arteries without aneurysm. PELVIC VISCERA: The uterus and adnexa are unremarkable. OSSEOUS STRUCTURES: Mild degenerative changes present spine. A bone island is present in L3. No bony destructive lesions. CT/CT abdomen pelvis wo IV con IMPRESSION: A cause for the patient's abdominal pain has not been found. Incidental findings as described above. Fleischner guidelines were followed.
[2023-03-30 19:53] VITALS: BP 146/90; PULSE 101; RESP 20; TEMP 36.8; O2SAT 98; BMI 28.1
[2023-03-30 20:48] LABS: MANUAL DIFF FLAG NO
[2023-03-30 20:49] LABS: Basophils Absolute Auto 0.1 X10*3/uL (0.0-0.2); Basophils Percent Auto 0.4 % (0-2); Eosinophils Absolute Auto 0.1 X10*3/uL (0.0-0.4); Eosinophils Percent Auto 0.4 % (0-4); Hematocrit 40.3 % (37.0-47.0); Hemoglobin 13.2 g/dl (12.0-16.0); Imm Gran Abs Auto 0.09 X10*3/uL (0.00-0.03); Imm Gran Pct Auto 0.5 % (0.0-0.4); Lymphocytes Absolute Auto 2.3 X10*3/uL (1.2-4.9); Lymphocytes Percent Auto 13.8 % (20-40); Mean Corpuscular HGB Conc 32.8 g/dl (31.0-35.0); Mean Corpuscular Volume 85.4 fL (80.0-98.0); Mean Platelet Volume 9.6 fL (9.4-12.3); Monocytes Absolute Auto 0.7 X10*3/uL (0.1-1.2); Monocytes Percent Auto 4.2 % (2-11); Neutrophils Absolute Auto 13.7 x10*3/uL (2.0-8.3); Neutrophils Percent Auto 80.7 % (45-73); Platelet Count 257 X10*3/uL (160-400); Red Blood Count 4.72 X10*6/uL (4.20-5.50); Red Cell Distribution Width 12.8 % (11.0-16.0)
[2023-03-30 21:10] LABS: Alanine Aminotransferase 23 U/L (0-31); Albumin Level 4.6 g/dL (3.5-5.0); Alkaline Phosphatase 53 U/L (39-117); Anion Gap 17 (12-20); Aspartate Amino Transferase 14 U/L (5-31); Bilirubin Direct 0.2 mg/dL (0.0-0.5); Bilirubin Total 0.8 mg/dL (0.0-1.0); Blood Urea Nitrogen 23 mg/dL (9-16); Calcium 10.4 mg/dL (8.4-10.2); Carbon Dioxide 22 mmol/L (22-29); Chloride 103 mmol/L (96-108); Creatinine Clr Calc Pharmacy 37.4; Estimated Glomerular Filt Rate 37; Glucose Random 246 mg/dL (60-115); Potassium 4.2 mmol/L (3.3-5.1); Sodium 138 mmol/L (135-145); Total Protein 7.6 g/dL (6.5-8.0)
[2023-03-30 21:11] LABS: Lipase 21 U/L (8-78)
--- NOTE | 2023-03-30 21:22 | ED_ITS ---
HPI - Abdominal Pain General Chief Complaint: Abdominal Pain Stated Complaint: n/d/abd pain Time Seen by Provider: 03/30/23 21:04 Source: patient Mode of arrival: ambulatory History of Present Illness HPI narrative: 67-year-old female with history of hypertension and diabetes and surgical history significant for lithotripsy for renal colic, tubal ligation who comes in with onset of left-sided abdominal discomfort that started approximately 1300 today and was associated with multiple episodes of diarrhea, nausea, vomiting. Patient states that last episodes for all 3 word approximately 18 30 this evening. She said that it was all precipitated by the abdominal pain denies any urinary symptoms, shortness of breath, chest pain/palpitations. Patient states that she thinks she may have eaten contaminated food as she had gone to a re staurant that she had never been to before. Related Data Home Medications Medication Instructions Recorded Confirmed lactulose 10 gram/15 mL oral 10 g PO BEDTIME prn constipatio 11/08/22 03/25/23 solution polyethylene glycol 3350 17 gram 17 g PO DAILY PRN constipation 11/08/22 03/25/23 oral powder packet (Purelax) Previous Rx's Medication Instructions Recorded triamcinolone acetonide 0.1 % 1 appl topical DAILY 15 days #30 04/24/22 topical cream grams peg-electrolyte solution 420 gram 240 ml PO Q10M #4,000 mL 11/08/22 oral solution dulaglutide 0.75 mg/0.5 mL 0.75 mg (0.5 mL) subcut QWEEK 4 12/29/22 subcutaneous pen injector weeks #2 mL (Trulicity) atorvastatin 40 mg tablet 40 mg PO DAILY #90 tabs 01/10/23 metformin 500 mg tablet,extended 1,000 mg PO DAILY 90 days #180 tabs 01/12/23 release 24 hr prednisone 20 mg tablet 40 mg PO DAILY 5 days #10 tabs 02/17/23 acetaminophen 500 mg tablet 500 mg PO QID pain 30 days #120 02/18/23 tabs esomeprazole magnesium 40 mg 40 mg PO DAILY 90 days #90 caps 02/18/23 capsule,delayed release losartan 50 mg tablet 50 mg PO DAILY 90 days #90 tabs 02/18/23 blood sugar diagnostic (FreeStyle #100 ea 02/27/23 Test strips) blood-glucose meter (FreeStyle #1 ea 02/27/23 Minot Lite kit) lancets 28 gauge (FreeStyle #100 ea 03/15/23 Lancets) prednisone 20 mg tablet 40 mg PO DAILY #10 tabs 03/17/23 epinephrine 0.3 mg/0.3 mL 0.3 mg (0.3 mL) IM Q4H PRN 03/25/23 injection, auto-injector (EpiPen anaphylaxis 30 days #2 ea 2-Rashard) nystatin 100,000 unit/mL oral 5 ml buccal TID PRN mouth 03/25/23 suspension irritation 10 days #60 mL ondansetron 4 mg disintegrating 4 mg PO Q8H PRN nausea and 03/31/23 tablet vomiting #14 tabs Allergies Allergy/AdvReac Type Severity Reaction Status Date / Time dicyclomine [From BENTYL] Allergy Unknown HIVES Verified 03/25/23 11:59 hydrocodone [HYDROCODONE] Allergy Unknown UNKNOWN Verified 03/25/23 11:59 ibuprofen [From MOTRIN] Allergy Unknown HIVES Verified 03/25/23 11:59 Iodinated Contrast Media Allergy Unknown ITCHING Verified 03/25/23 11:59 [IV CONTRAST] minocycline [MINOCYCLINE] Allergy Unknown UNK Verified 03/25/23 11:59 morphine [MORPHINE] Allergy Unknown UNKNOWN Verified 03/25/23 11:59 naproxen [NAPROXEN] Allergy Unknown UNKOWN Verified 03/25/23 11:59 peanut [PEANUT] Allergy Unknown HIVES Verified 03/25/23 11:59 sulfamethoxazole Allergy Unknown UNKNOWN Verified 03/25/23 11:59 [From BACTRIM] tramadol [TRAMADOL] Allergy Unknown UNK Verified 03/25/23 11:59 trimethoprim [From BACTRIM] Allergy Unknown UNKNOWN Verified 03/25/23 11:59 lisinopril Allergy Abdominal Verified 03/25/23 11:59 Pain metronidazole [From Flagyl] Allergy Hives Verified 03/25/23 11:59 amitriptyline [AMITRIPTYLINE] AdvReac Mild HYPER Verified 03/25/23 11:59 metoclopramide [From REGLAN] AdvReac Mild HYPER Verified 03/25/23 11:59 latex [LATEX] AdvReac Unknown RASH Verified 03/25/23 11:59 phenylephrine [PHENYLEPHRINE] AdvReac Unknown UNKNOWN Verified 03/25/23 11:59 promethazine [From PHENERGAN] AdvReac Unknown UNK Verified 03/25/23 11:59 From REGLAN Allergy Unknown UNKNOWN Uncoded 03/25/23 11:52 SHELLFISH Allergy Unknown HIVES Uncoded 03/25/23 11:52 Review of Systems Review of Systems Pertinent positives and negatives as stated in [facility] Past Medical History Source: nursing notes reviewed Medical History Diabetes GERD (gastroesophageal reflux disease) HTN (hypertension) Migraine Surgical History History of esophagogastroduodenoscopy (EGD) Hx of colonoscopy S/P carpal tunnel release Family History Family History Maternal Grandmother Colon cancer Social History Social History Housing: Apartment Alcohol intake: never Patient Tobacco Use Status: Never used Tobacco Smoked in Last 30 Days: No e-Cigarette/Vaping Use: Never Used Second Hand Smoke Exposure: No Use of substances other than those prescribed or required for medical reasons: No Advance Directives: No Advance Directives Information Provided: No service: No Current occupational status: disabled Cognitive needs: No Hearing needs: No Vision needs: No Physical Exam ED Vital Signs: Vital Signs - 24 hr 03/30/23 19:53 03/30/23 21:47 03/30/23 23:07 Temperature 98.2 F 98.8 F 98.8 F Pulse Rate 101 H 87 83 Respiratory Rate 20 18 18 Blood Pressure 146/90 H 143/72 H 139/81 Pulse Oximetry 98 98 97 Oxygen Delivery Method Room Air Room Air Room Air BMI result Body Mass Index 28.1 VITAL SIGNS: Reviewed. GENERAL: Well developed, well nourished, in no acute distress. HEAD: Normocephalic/atraumatic EYES: PERRLA, EOMI EARS: Ext canals without abnormality NOSE: Nares patent bilateral OROPHARYNX: no oral lesions noted, posterior pharynx clear NECK: Supple, no adenopathy LUNGS: Normal breath sounds. No adventitious sounds or accessory muscle use. SpO2<98> CARDIOVASCULAR: Regular rate and rhythm without noted murmurs ABDOMEN: Soft, non-tender, non-distended with bowel sounds. MUSCULOSKELETAL: No tenderness, deformities, or effusions noted on gross inspection. EXTREMITIES: No cyanosis, clubbing or edema. SKIN: Inspection of the skin reveals no rashes NEUROLOGIC: Alert and oriented x 4. Strength and sensation to light touch were grossly intact x 4. Medical Decision Making Medical Decision Making [facility] Narrative: 2114: 67-year-old female with history and clinical presentation most suspicious for food contamination/gastroenteritis, abdominal exam was very benign and without CVA tenderness. Will obtain basic labs, UA and rehydrate with 1 L of IV fluids and reassess. Review of all investigations and my interpretation is that patient has suffered from acute food poisoning with resulting gastroenteritis, she has been fluid resuscitated and repeat lactic acid is within normal limits as well as resolution of SELAM. Although she continues to have mild diarrhea she is no longer nauseous and vomiting is tolerating oral intake. She will be discharged home in stable condition with instructions to stay well hydrated with prescription of Zofran as well as dietary changes to help firm up the diarrhea that she is experiencing. Differential Diagnosis Please see the discussion above Lab Data Please see the discussion above 03/30/23 20:44 03/30/23 20:44 Labs: Lab Results 03/30/23 03/30/23 03/30/23 Range/Units 20:44 20:44 21:30 WBC 17.0 H (4.8-10.8) X10*3/uL RBC 4.72 (4.20-5.50) X10*6/uL Hgb 13.2 (12.0-16.0) g/dl Hct 40.3 (37.0-47.0) % MCV 85.4 (80.0-98.0) fL MCH 28.0 (27.0-33.0) pg MCHC 32.8 (31.0-35.0) g/dl RDW 12.8 (11.0-16.0) % Plt Count 257 (160-400) X10*3/uL MPV 9.6 (9.4-12.3) fL Immature Gran % (Auto) 0.5 H (0.0-0.4) % Neut % (Auto) 80.7 H (45-73) % Lymph % (Auto) 13.8 L (20-40) % [place] % (Auto) 4.2 (2-11) % Eos % (Auto) 0.4 (0-4) % Baso % (Auto) 0.4 (0-2) % Lymph # (Auto) 2.3 (1.2-4.9) X10*3/uL [place] # (Auto) 0.7 (0.1-1.2) X10*3/uL Eos # (Auto) 0.1 (0.0-0.4) X10*3/uL Baso # (Auto) 0.1 (0.0-0.2) X10*3/uL Abs Immat Gran (auto) 0.09 H (0.00-0.03) X10*3/uL Absolute Neuts (auto) 13.7 H (2.0-8.3) x10*3/uL Absolute Nucleated RBC 0.000 (0.0-0.012) X10*3/uL Nucleated RBC % (auto) 0.0 (0.0-0.2) /100WBC Sodium 138 (135-145) mmol/L Potassium 4.2 (3.3-5.1) mmol/L Chloride 103 (96-108) mmol/L Carbon Dioxide 22 (22-29) mmol/L Anion Gap 17 (12-20) BUN 23 H (9-16) mg/dL Creatinine 1.42 H (0.5-1.4) mg/dL Estim Creat Clear Calc 37.4 Estimated GFR 37 Random Glucose 246 H (60-115) mg/dL Lactic Acid 2.3 H* (0.5-2.0) mmol/L Lactic Acid F/U @ 2Hr (0.5-2.0) mmol/L Calcium 10.4 H (8.4-10.2) mg/dL Total Bilirubin 0.8 (0.0-1.0) mg/dL Direct Bilirubin 0.2 (0.0-0.5) mg/dL AST 14 (5-31) U/L ALT 23 (0-31) U/L Alkaline Phosphatase 53 (39-117) U/L Total Protein 7.6 (6.5-8.0) g/dL Albumin 4.6 (3.5-5.0) g/dL Lipase 21 (8-78) U/L Urine Color Urine Appearance Urine pH (5.0-9.0) Ur Specific [place] (1.005-1.025) Urine Protein (Neg-Trace) mg/dL Urine Glucose (UA) (Negative) mg/dL Urine Ketones (Negative) mg/dL Urine Blood (Negative) Urine Nitrite (Negative) Ur Leukocyte Esterase (Negative) Urine RBC (0-2) /HPF Urine WBC (0-5) /HPF Ur Squamous Epith Cells (0-2) /HPF Urine Bacteria (None Seen) Hyaline Casts (0-2) /LPF 03/30/23 03/31/23 03/31/23 Range/Units 21:30 00:00 01:05 WBC (4.8-10.8) X10*3/uL RBC (4.20-5.50) X10*6/uL Hgb (12.0-16.0) g/dl Hct (37.0-47.0) % MCV (80.0-98.0) fL MCH (27.0-33.0) pg MCHC (31.0-35.0) g/dl RDW (11.0-16.0) % Plt Count (160-400) X10*3/uL MPV (9.4-12.3) fL Immature Gran % (Auto) (0.0-0.4) % Neut % (Auto) (45-73) % Lymph % (Auto) (20-40) % [place] % (Auto) (2-11) % Eos % (Auto) (0-4) % Baso % (Auto) (0-2) % Lymph # (Auto) (1.2-4.9) X10*3/uL [place] # (Auto) (0.1-1.2) X10*3/uL Eos # (Auto) (0.0-0.4) X10*3/uL Baso # (Auto) (0.0-0.2) X10*3/uL Abs Immat Gran (auto) (0.00-0.03) X10*3/uL Absolute Neuts (auto) (2.0-8.3) x10*3/uL Absolute Nucleated RBC (0.0-0.012) X10*3/uL Nucleated RBC % (auto) (0.0-0.2) /100WBC Sodium 138 (135-145) mmol/L Potassium 4.4 (3.3-5.1) mmol/L Chloride 107 (96-108) mmol/L Carbon Dioxide 21 L (22-29) mmol/L Anion Gap 14 (12-20) BUN 20 H (9-16) mg/dL Creatinine 1.06 (0.5-1.4) mg/dL Estim Creat Clear Calc 50.2 Estimated GFR 52 Random Glucose 175 H (60-115) mg/dL Lactic Acid (0.5-2.0) mmol/L Lactic Acid F/U @ 2Hr 1.0 (0.5-2.0) mmol/L Calcium 9.8 (8.4-10.2) mg/dL Total Bilirubin (0.0-1.0) mg/dL Direct Bilirubin (0.0-0.5) mg/dL AST (5-31) U/L ALT (0-31) U/L Alkaline Phosphatase (39-117) U/L Total Protein (6.5-8.0) g/dL Albumin (3.5-5.0) g/dL Lipase (8-78) U/L Urine Color Yellow Urine Appearance Clear Urine pH 5.5 (5.0-9.0) Ur Specific [place] 1.015 (1.005-1.025) Urine Protein Negative (Neg-Trace) mg/dL Urine Glucose (UA) 100 H (Negative) mg/dL Urine Ketones Negative (Negative) mg/dL Urine Blood Negative (Negative) Urine Nitrite Negative (Negative) Ur Leukocyte Esterase Moderate (2+) H (Negative) Urine RBC 0-2 (0-2) /HPF Urine WBC 21-50 H (0-5) /HPF Ur Squamous Epith Cells 0-2 (0-2) /HPF Urine Bacteria None Seen (None Seen) Hyaline Casts 3-5 (0-2) /LPF Radiology Impression Radiologist Impression: My interpretation is in agreement with radiology's impression. Medications Administered Discontinued Medications Generic Name Dose Route Start Last Admin Trade Name Freq PRN Reason Stop Dose Admin Sodium Chloride 1,000 mls @ 999 mls/hr 03/30/23 21:30 03/30/23 23:15 Ns IV 03/30/23 22:30 Infused .Q1H1M CHANI Infusion Discharge Plan Discharge Clinical Impression: Food poisoning, Gastroenteritis, Dehydration, SELAM (acute kidney injury) Patient Disposition: Home, Self-Care Instructions: Dehydration (ED), Gastroenteritis (ED), Food Poisoning (ED), Nutrition Tips for Relief of Diarrhea (ED) Additional Instructions: 1. Resume all home medications as prescribed. I do not recommend using [id number] medications for the diarrhea and you should allow your body to pass what ever contamination you are experiencing. 2. Please increase the amount of water intake, Gatorade, Pedialyte over the next 24-48 hours. You are receiving a prescription for antinausea medication which should further assist you. 3. Please follow-up with your primary care provider on Friday morning. Do not take any stool softening medications for the next 24-48 hours. Return to the ER for any worsening symptoms. Prescriptions: New ondansetron 4 mg tablet,disintegrating 4 mg PO Q8H PRN (Reason: nausea and vomiting) Qty: 14 0RF No Action Trulicity 0.75 mg/0.5 mL pen injector 0.75 mg subcut QWEEK 28 Days Qty: 2 1RF atorvastatin 40 mg tablet 40 mg PO DAILY Qty: 90 1RF metformin 500 mg tablet extended release 24 hr 1,000 mg PO DAILY 90 Days Qty: 180 1RF esomeprazole magnesium 40 mg capsule,delayed release(DR/EC) 40 mg PO DAILY 90 Days Qty: 90 1RF acetaminophen 500 mg tablet 500 mg PO QID 30 Days Qty: 120 0RF losartan 50 mg tablet 50 mg PO DAILY 90 Days Qty: 90 1RF (DME) blood-glucose meter [FreeStyle Minot Lite] Kit See Rx Instructions .Route Qty: 1 0RF Rx Instructions: As directed (DME) FreeStyle Test Strip See Rx Instructions .Route Qty: 100 1RF Rx Instructions: As directed (DME) lancets [FreeStyle Lancets] 28 gauge misc See Rx Instructions .ROUTE .MEDSUPPLY Qty: 100 3RF Rx Instructions: As directed prednisone 20 mg tablet 40 mg PO DAILY 5 Days Qty: 10 0RF prednisone 20 mg tablet 40 mg PO DAILY Qty: 10 0RF triamcinolone acetonide 0.1 % cream 1 appl topical DAILY 15 Days Qty: 30 1RF epinephrine [EpiPen 2-Rashard] 0.3 mg/0.3 mL auto-injector 0.3 mg IM Q4H PRN (Reason: anaphylaxis) 30 Days Qty: 2 0RF nystatin 100,000 unit/mL suspension 5 ml buccal TID PRN (Reason: mouth irritation) 10 Days Qty: 60 0RF Rx Instructions: administer 1/2 of dose in each side of the mouth lactulose 10 gram/15 mL solution 10 g PO BEDTIME Rx Instructions: stop if you develop diarrhea polyethylene glycol 3350 [Purelax] 17 gram powder in packet 17 g PO DAILY PRN (Reason: constipation) peg-electrolyte soln 420 gram recon soln 240 ml PO Q10M Qty: 4000 0RF Rx Instructions: until fecal effluent is clear; do not exceed a total volume of 2,000 mL Referrals: Celso Mathur PA-C [Primary Care Provider] -
[2023-03-30] MEDS: 0.9 % Sodium Chloride 1,000 ML 999 ML IV (21:40)
[2023-03-30 21:47] VITALS: BP 143/72; PULSE 87; RESP 18; TEMP 37.1; O2SAT 98
[2023-03-30 21:48] LABS: Appearance Urine Clear; Color Urine Yellow; Glucose Urine UA 100 mg/dL (Negative); Lactic Acid 2.3 mmol/L (0.5-2.0); Leukocyte Esterase Urine Moderate (2+) (Negative); Nitrite Urine Negative (Negative); PH 5.5 (5.0-9.0); Specific Gravity - Urine 1.015 (1.005-1.025); UMIC TRIGGER UACC YES; Urine Blood Negative (Negative); Urine Ketones Negative (Negative); Urine Protein Negative (Neg-Trace)
[2023-03-30 21:51] LABS: Bacteria Urine None Seen (None Seen); RBC Urine 0-2 /HPF (0-2); Squamous Epithelial Cell Urine 0-2 /HPF (0-2); UACC Culture Trigger YES; WBC Urine 21-50 /HPF (0-5)
--- NOTE | 2023-03-30 22:26 | PC.NURSE ---
pt a&ox4, vss, reporting 8/10 abd pain with nausea and diarrhea since 1300 this afternoon, reports eating at a new restaurant last night, 20G IV placed left forearm, labs drawn, urine sample obtained, 1L NS running, pt pending CT scan results. no new orders at this time.
[2023-03-30 23:07] VITALS: BP 139/81; PULSE 83; RESP 18; TEMP 37.1; O2SAT 97
[2023-03-30 23:33] LABS: Reflex Lactate? Lactic Acid Added
[2023-03-31 01:36] LABS: Anion Gap 14 (12-20); Blood Urea Nitrogen 20 mg/dL (9-16); Calcium 9.8 mg/dL (8.4-10.2); Carbon Dioxide 21 mmol/L (22-29); Chloride 107 mmol/L (96-108); Creatinine Clr Calc Pharmacy 50.2; Estimated Glomerular Filt Rate 52; Glucose Random 175 mg/dL (60-115); Potassium 4.4 mmol/L (3.3-5.1); Sodium 138 mmol/L (135-145)
== END 2023-03-31 02:00 | disposition home or self-care (01) ==
PROVIDERS: Emergency Provider Student in an Organized Health Care Education/Training Program; PCP Physician Assistant
DX: A05.9 Bacterial foodborne intoxication, unspecified (principal); K52.9 Noninfective gastroenteritis and colitis, unspecified; R10.13 Epigastric pain; E86.0 Dehydration; Z79.899 Other long term (current) drug therapy
CPT/HCPCS: 36415; 74176; 80048; 80053; 80076; 81001; 82248; 83605; 83690; 85025; 87040; 87086; 96361; 96365; 99284; 99285

== ENCOUNTER 2023-04-17 07:58 | Outpatient (REF) | payer OTHER, SELFPAY ==
[2023-04-17 08:52] LABS: Hematocrit 37.8 % (37.0-47.0); Hemoglobin 12.3 g/dl (12.0-16.0); Mean Corpuscular HGB Conc 32.5 g/dl (31.0-35.0); Mean Corpuscular Hemoglobin 28.3 pg (27.0-33.0); Mean Corpuscular Volume 86.9 fL (80.0-98.0); Mean Platelet Volume 9.7 fL (9.4-12.3); Platelet Count 303 X10*3/uL (160-400); Red Blood Count 4.35 X10*6/uL (4.20-5.50); White Blood Count 6.7 X10*3/uL (4.8-10.8)
[2023-04-17 09:40] LABS: Alanine Aminotransferase 18 U/L (0-31); Albumin Level 4.4 g/dL (3.5-5.0); Alkaline Phosphatase 46 U/L (39-117); Anion Gap 15 (12-20); Aspartate Amino Transferase 17 U/L (5-31); Bilirubin Total 0.6 mg/dL (0.0-1.0); Blood Urea Nitrogen 18 mg/dL (9-16); Calcium 10.1 mg/dL (8.4-10.2); Carbon Dioxide 26 mmol/L (22-29); Chloride 104 mmol/L (96-108); Cholesterol 111 mg/dL; Estimated Glomerular Filt Rate > 60; Glucose Fasting 153 mg/dL (60-99); HDL Cholesterol 35 mg/dL; LDL Cholesterol Calculated 53 mg/dl; Potassium 3.9 mmol/L (3.3-5.1); Sodium 141 mmol/L (135-145); TSH reflex Free T4 1.05 uIU/mL (0.32-4.0); Total Protein 7.5 g/dL (6.5-8.0); Triglycerides 115 mg/dL
[2023-04-17 10:51] LABS: Creatinine Urine 101.55 mg/dL; Microalbum/Creatinine Ratio Ur 17.7 ug/mg cr
== END 2023-04-17 07:59 | disposition home or self-care (01) ==
LOC: HO.LAB 07:58
PROVIDERS: PCP Physician Assistant; Visit Provider Physician Assistant
DX: E11.65 Type 2 diabetes mellitus with hyperglycemia (principal); I10 Essential (primary) hypertension
CPT/HCPCS: 36415; 80053; 80061; 82043; 84443; 85027

== ENCOUNTER 2023-04-20 20:12 | Emergency (ER) | payer OTHER, SELFPAY ==
[2023-04-20 20:35] VITALS: BP 157/78; PULSE 94; RESP 16; TEMP 36.1; O2SAT 97; BMI 28.0
[2023-04-20 20:53] VITALS: BP 147/83; PULSE 85; RESP 20; TEMP 36.8; O2SAT 96
--- NOTE | 2023-04-20 20:54 | ED_ITS ---
HPI - General Adult General Chief complaint: Animal Bite Stated complaint: insect bite in ear/ took epi pen Time Seen by Provider: 04/20/23 20:54 Source: patient Mode of arrival: ambulatory Limitations: no limitations History of Present Illness HPI narrative: Patient is a 67 year old assigned female at with a history of HTN, DM, and GERD presenting to the emergency department today with an insect bite to her right ear and using an epi pen. Patient states that she has multiple medications she is deathly allergic to and so she has an epi pen in her home. Patient states that she got stung by some sort of insect on her right ear and used her epi pen. Patient states that she is not allergic to any insects but panicked and used her pen. Patient denies any dizziness, lightheadedness, abdominal pain, nausea, vomiting, fever, chills, blurry vision, double vision, loss of vision, chest pain, difficulty breathing, shortness of breath, back pain, night sweats, pain with urination, increased urinary frequency, increased urinary urgency, blood in her urine or stool, syncope or a near syncopal episode, recent trauma or falls, bowel incontinence, bladder incontinence, bowel retention, bladder retention, or any other complaints at this time. Onset (ago): minute(s) Severity: mild Severity scale (1-10): 2 Relieving factors: none Exacerbating factors: none Associated symptoms: denies other symptoms Treatments prior to arrival: none Related Data Home Medications Medication Instructions Recorded Confirmed lactulose 10 gram/15 mL oral 10 g PO BEDTIME prn constipatio 11/08/22 03/25/23 solution Previous Rx's Medication Instructions Recorded triamcinolone acetonide 0.1 % 1 appl topical DAILY 15 days #30 04/24/22 topical cream grams peg-electrolyte solution 420 gram 240 ml PO Q10M #4,000 mL 11/08/22 oral solution dulaglutide 0.75 mg/0.5 mL 0.75 mg (0.5 mL) subcut QWEEK 4 12/29/22 subcutaneous pen injector weeks #2 mL (Trulicity) atorvastatin 40 mg tablet 40 mg PO DAILY #90 tabs 01/10/23 metformin 500 mg tablet,extended 1,000 mg PO DAILY 90 days #180 tabs 01/12/23 release 24 hr prednisone 20 mg tablet 40 mg PO DAILY 5 days #10 tabs 02/17/23 acetaminophen 500 mg tablet 500 mg PO QID pain 30 days #120 02/18/23 tabs esomeprazole magnesium 40 mg 40 mg PO DAILY 90 days #90 caps 02/18/23 capsule,delayed release losartan 50 mg tablet 50 mg PO DAILY 90 days #90 tabs 02/18/23 blood sugar diagnostic (FreeStyle #100 ea 02/27/23 Test strips) blood-glucose meter (FreeStyle #1 ea 02/27/23 [place] Lite kit) lancets 28 gauge (FreeStyle #100 ea 03/15/23 Lancets) prednisone 20 mg tablet 40 mg PO DAILY #10 tabs 03/17/23 epinephrine 0.3 mg/0.3 mL 0.3 mg (0.3 mL) IM Q4H PRN 03/25/23 injection, auto-injector (EpiPen anaphylaxis 30 days #2 ea 2-Rashard) nystatin 100,000 unit/mL oral 5 ml buccal TID PRN mouth 03/25/23 suspension irritation 10 days #60 mL ondansetron 4 mg disintegrating 4 mg PO Q8H PRN nausea and 03/31/23 tablet vomiting #14 tabs polyethylene glycol 3350 17 gram 17 g PO DAILY PRN for constipation 04/16/23 oral powder packet (HealthyLax) #30 packets Allergies Allergy/AdvReac Type Severity Reaction Status Date / Time dicyclomine [From BENTYL] Allergy Unknown HIVES Verified 04/20/23 20:35 hydrocodone [HYDROCODONE] Allergy Unknown UNKNOWN Verified 04/20/23 20:35 ibuprofen [From MOTRIN] Allergy Unknown HIVES Verified 04/20/23 20:35 Iodinated Contrast Media Allergy Unknown ITCHING Verified 04/20/23 20:35 [IV CONTRAST] minocycline [MINOCYCLINE] Allergy Unknown UNK Verified 04/20/23 20:35 morphine [MORPHINE] Allergy Unknown UNKNOWN Verified 04/20/23 20:35 naproxen [NAPROXEN] Allergy Unknown UNKOWN Verified 04/20/23 20:35 peanut [PEANUT] Allergy Unknown HIVES Verified 04/20/23 20:35 sulfamethoxazole Allergy Unknown UNKNOWN Verified 04/20/23 20:35 [From BACTRIM] tramadol [TRAMADOL] Allergy Unknown UNK Verified 04/20/23 20:35 trimethoprim [From BACTRIM] Allergy Unknown UNKNOWN Verified 04/20/23 20:35 lisinopril Allergy Abdominal Verified 04/20/23 20:35 Pain metronidazole [From Flagyl] Allergy Hives Verified 04/20/23 20:35 amitriptyline [AMITRIPTYLINE] AdvReac Mild HYPER Verified 04/20/23 20:35 metoclopramide [From REGLAN] AdvReac Mild HYPER Verified 04/20/23 20:35 latex [LATEX] AdvReac Unknown RASH Verified 04/20/23 20:35 phenylephrine [PHENYLEPHRINE] AdvReac Unknown UNKNOWN Verified 04/20/23 20:35 promethazine [From PHENERGAN] AdvReac Unknown UNK Verified 04/20/23 20:35 From REGLAN Allergy Unknown UNKNOWN Uncoded 04/20/23 20:35 SHELLFISH Allergy Unknown HIVES Uncoded 04/20/23 20:35 Review of Systems Constitutional: Constitutional: Reports no additional constitutional complaints, Denies chills, Denies fever(s) and Denies night sweats Eyes: Eyes: Reports no additional eye complaints, Denies blurry vision, Denies change in vision, Denies diplopia, Denies eye discharge, Denies loss of vision and Denies eye pain ENT: Denies dizziness Comments: insect bite to right ear Cardiovascular: Cardiovascular: Reports no additional cardiovascular complaint s, Denies chest pain, Denies lightheadedness, Denies Loss of Consciousness and Denies dyspnea Respiratory: Respiratory: Reports no additional respiratory complaints and Denies dyspnea Gastrointestinal: Gastrointestinal: Reports no additional gastrointestinal complaints, Denies abdominal pain, Denies melena, Denies hematochezia, Denies change in bowel habits and Denies change in stool character Genitourinary: Genitourinary: Denies hematuria, Denies urinary frequency, Denies dysuria, Denies urinary incontinence, Denies urinary hesitancy and Denies urinary urgency Musculoskeletal: Musculoskeletal: Reports no additional musculoskeletal complaints, Denies numbness and Denies tingling Neurologic: Denies dizziness, Denies loss of vision, Denies numbness and Denies tingling Psychiatric: Psychiatric: Reports no additional psychiatric complaints Endocrine: Endocrine: Reports no additional endocrine complaints Hematologic/Lymphatic: Hematologic/Lymphatic: Reports no additional hematologic/lymphatic complaints Allergic/Immunologic: Allergic/Immunologic: Reports no additional allergic/immunologic complaints PMFSH Past Medical History Attestation statement: The following information was validated with the patient. Source: old records reviewed and nursing notes reviewed Medical History Diabetes GERD (gastroesophageal reflux disease) HTN (hypertension) Migraine Surgical History History of esophagogastroduodenoscopy (EGD) Hx of colonoscopy S/P carpal tunnel release Family History Family History Maternal Grandmother Colon cancer Social History Social History Housing: Apartment Alcohol intake: never Patient Tobacco Use Status: Never used Tobacco Smoked in Last 30 Days: No e-Cigarette/Vaping Use: Never Used Second Hand Smoke Exposure: No Use of substances other than those prescribed or required for medical reasons: No Advance Directives: No Advance Directives Information Provided: No service: No Current occupational status: disabled Cognitive needs: No Hearing needs: No Vision needs: No Physical Exam ED Vital Signs: Vital Signs - 24 hr 04/20/23 20:35 04/20/23 20:53 Temperature 97 F 98.3 F Pulse Rate 94 85 Respiratory Rate 16 20 Blood Pressure 157/78 H 147/83 H Pulse Oximetry 97 96 Oxygen Delivery Method Room Air Room Air BMI result Body Mass Index 28.0 Const General: cooperative, no acute distress, alert and awake Nutritional Appearance: well nourished Orientation/consciousness: patient oriented x3 Limitations: no limitations [facility] Head: Yes normal to inspection and Yes atraumatic Ears: hearing grossly normal bilaterally and other Outer ear/TM images: 1. small erythema area consistent with an insect bite General nose exam: Normal external nose present, no nasal discharge noted and no epistaxis Face and sinus: Yes normal facial exam, No abrasion and No laceration Mouth: Normal oral and palatal mucosa present, no drooling and no muffled voice Eyes General: appearance normal, both eyes and all related structures Periorbital: periorbital findings normal Eyelids: Yes eyelids normal Conjunctivae: conjunctivae normal Pupils: Equal, round and reactive pupils present EOM: EOMs intact bilaterally Neck Neck: Yes normal visual inspection, Yes full ROM and Yes no lymphadenopathy Chest Chest palpation & inspection: normal inspection of the chest Resp Effort & Inspection: normal respiratory effort and able to speak in complete sentences Auscultation: clear to auscultation bilaterally Cardio Rate: regular rate Rhythm: regular rhythm GI Inspection: Yes normal to inspection Neuro General: patient oriented x3 and moves all extremities Cranial nerves: Yes Equal, round and reactive pupils present Cognition (Neuro): normal cognition Motor exam (neuro): 5/5 motor strength present throughout Sensory Exam: Normal double simultaneous stimulation for sensation Coordination: [id number] test normal Extrem General: Yes normal to inspection, Yes full ROM and Yes capillary refill normal Psych Appearance: grossly normal Mental Status: mental status grossly normal Affect: normal affect Attitude: cooperative Thought process: Normal thought process present Thought content: Normal thought content present Insight: Good insight present (Psych) Medications Administered Discontinued Medications Generic Name Dose Route Start Last Admin Trade Name Freq PRN Reason Stop Dose Admin Diphenhydramine HCl 50 mg 04/20/23 20:58 04/20/23 21:14 Diphenhydramine Hcl 50 Mg/Ml Vial IM 04/20/23 20:59 50 mg ONCE ONE Administration Medical Decision Making Medical Decision Making [facility] Narrative: Patient is a 67 year old assigned female at with a history of HTN, DM, and GERD presenting to the emergency department today with an insect bite to her right ear and the inappropriate use of her epi pen. Patient's physical exam was as noted in the physical exam portion of this chart. I explained my physical exam findings to the patient. I answered all questions asked by the patient. Patient received IM Benadryl. I stressed the importance of the patient taking her medication as prescribed. I stressed the importance of the patient following up with her primary care provider. I stressed the importance of the patient returning to the emergency department immediately if her symptoms were to worsen or if she were to develop any dizziness, shortness of breath, difficulty breathing, chest pain, blurry vision, loss of vision, nausea, vomiting, abd ominal pain, fever, chills, back pain, or any other complaints. Patient verbalized agreement and understanding with this treatment plan and discharge. Differential Diagnosis Differential Diagnoses: The differential diagnosis associated with the presentation includes insect bite, inappropriate use of epi-pen Discharge Plan Discharge Clinical Impression: Insect bite Patient Disposition: Home, Self-Care Instructions: Insect Bite or Sting (ED) Additional Instructions: Follow up with your primary care provider. Return to the emergency department immediately if your symptoms worsen or if you develop any dizziness, shortness of breath, difficulty breathing, chest pain, blurry vision, loss of vision, nausea, vomiting, abdominal pain, fever, chills, back pain, or any other complaints. Prescriptions: No Action Trulicity 0.75 mg/0.5 mL pen injector 0.75 mg subcut QWEEK 28 Days Qty: 2 1RF atorvastatin 40 mg tablet 40 mg PO DAILY Qty: 90 1RF metformin 500 mg tablet extended release 24 hr 1,000 mg PO DAILY 90 Days Qty: 180 1RF esomeprazole magnesium 40 mg capsule,delayed release(DR/EC) 40 mg PO DAILY 90 Days Qty: 90 1RF acetaminophen 500 mg tablet 500 mg PO QID 30 Days Qty: 120 0RF losartan 50 mg tablet 50 mg PO DAILY 90 Days Qty: 90 1RF (DME) blood-glucose meter [FreeStyle [place] Lite] Kit See Rx Instructions .Route Qty: 1 0RF Rx Instructions: As directed (DME) FreeStyle Test Strip See Rx Instructions .Route Qty: 100 1RF Rx Instructions: As directed (DME) lancets [FreeStyle Lancets] 28 gauge misc See Rx Instructions .ROUTE .MEDSUPPLY Qty: 100 3RF Rx Instructions: As directed polyethylene glycol 3350 [HealthyLax] 17 gram powder in packet 17 g PO DAILY PRN (Reason: for constipation) Qty: 30 2RF prednisone 20 mg tablet 40 mg PO DAILY 5 Days Qty: 10 0RF prednisone 20 mg tablet 40 mg PO DAILY Qty: 10 0RF ondansetron 4 mg tablet,disintegrating 4 mg PO Q8H PRN (Reason: nausea and vomiting) Qty: 14 0RF triamcinolone acetonide 0.1 % cream 1 appl topical DAILY 15 Days Qty: 30 1RF epinephrine [EpiPen 2-Rashard] 0.3 mg/0.3 mL auto-injector 0.3 mg IM Q4H PRN (Reason: anaphylaxis) 30 Days Qty: 2 0RF nystatin 100,000 unit/mL suspension 5 ml buccal TID PRN (Reason: mouth irritation) 10 Days Qty: 60 0RF Rx Instructions: administer 1/2 of dose in each side of the mouth lactulose 10 gram/15 mL solution 10 g PO BEDTIME Rx Instructions: stop if you develop diarrhea peg-electrolyte soln 420 gram recon soln 240 ml PO Q10M Qty: 4000 0RF Rx Instructions: until fecal effluent is clear; do not exceed a total volume of 2,000 mL Referrals: Celso Mathur PA-C [Primary Care Provider] - Interventions: ED Discharge Assessment Last Done: 04/20/23 21:51 Discharge Date/Time: 04/20/23 21:53 Print Language: Luxembourger
[2023-04-20] MEDS: diphenhydrAMINE HCL 50 MG/ML VIAL IM (21:14)
== END 2023-04-20 21:53 | disposition home or self-care (01) ==
PROVIDERS: Emergency Provider Emergency Medicine; PCP Physician Assistant
DX: S00.461A Insect bite (nonvenomous) of right ear, initial encounter (principal); W57.XXXA Bitten or stung by nonvenomous insect and other nonvenomous arthropods, initial encounter; Y93.9 Activity, unspecified; Y92.017 Garden or yard in single-family (private) house as the place of occurrence of the external cause; Y99.9 Unspecified external cause status
CPT/HCPCS: 96372; 99284; J1200

== ENCOUNTER 2023-05-01 13:59 | Outpatient (REF) | payer OTHER, SELFPAY | END 2023-05-01 14:00 | disposition home or self-care (01) | LOC: HO.LNP 13:59 | PROVIDERS: Visit Provider Physician Assistant | DX: K21.9 Gastro-esophageal reflux disease without esophagitis (principal) | CPT/HCPCS: 87338 ==

== ENCOUNTER 2023-05-15 12:43 | Outpatient (REF) | payer OTHER, SELFPAY ==
--- NOTE | ~2023-05-15 | MM_ITS ---
EXAMINATION: BONE DENSITOMETRY CLINICAL INDICATION: Asymptomatic menopausal state. COMPARISON: This is the patient's baseline examination. TECHNIQUE: Using a [employer] Software DXA System (software version: 13.1) manufactured by [employer], dual-energy x-ray absorptiometry was performed of the lumbar spine and left hip. The images are of good technical quality. Summary results are attached. FINDINGS: LEFT FEMUR, NECK: BMD 1.108 g/cm2, Z-score 2.0, T-score 0.5, normal. LEFT FEMUR, TOTAL: BMD 1.082 g/cm2, Z-score 1.8, T-score 0.6, normal. AP SPINE L1-L4: BMD 1.229 g/cm2, Z-score 1.8, T-score 0.4, normal. IDENTIFIED RISK FACTORS: Menopause. HISTORY OF FRACTURE: None listed. MEDICATIONS: None listed. MM/XR DEXA axial skeleton IMPRESSION: 1. DIAGNOSIS: Normal bone density based on the lowest T-score value of 0.4 in the lumbar spine applying World Health Organization criteria. 2. 10-YEAR FRACTURE RISK PREDICTION, FRAX: According to the guidelines, FRAX calculation should only be performed on patients in the osteopenia bone density category. Therefore, FRAX was not performed on this patient. 3. Treatment Recommendations: NOF guidelines recommend consideration for treatment in postmenopausal women and men age 50 and older presenting with the following: -A hip or vertebral (clinical or morphometric) fracture. -T-score less than or equal to -2.5 at the femoral neck or spine after appropriate evaluation to exclude secondary causes. -Low bone mass at the hip or spine and a 10-year fracture probability by FRAX of greater than or equal to 3% for hip fracture or greater than or equal to 20% for major osteoporotic fracture based on the [place] adapted WHO algorithm. 4. Other Recommendations: All treatment decisions require clinical judgment and consideration of individual patient factors, including patient preferences, comorbidities, previous drug use, risk factors not captured in the FRAX model (e.g. frailty, falls, vitamin D deficiency, increased bone turnover, interval significant decline in bone density) and possible under or overestimation of fracture risk by FRAX. FUTURE SCAN RECOMMENDATION: People with diagnosed cases of osteoporosis or at high risk for fracture should have regular bone mineral density tests. For patients eligible for Medicare, routine testing is allowed once every 2 years. The testing frequency can be increased to one year for patients who have rapidly progressing disease, those who are receiving or discontinuing medical therapy to restore bone mass, or have additional risk factors.
== END 2023-05-15 12:44 | disposition home or self-care (01) ==
LOC: HO.MAMMO 12:43
PROVIDERS: PCP Physician Assistant; Visit Provider Physician Assistant
DX: Z13.820 Encounter for screening for osteoporosis (principal); Z78.0 Asymptomatic menopausal state
CPT/HCPCS: 77080

== ENCOUNTER 2023-07-10 09:01 | Outpatient (REF) | payer OTHER, SELFPAY ==
[2023-07-10 09:47] LABS: Hematocrit 37.3 % (37.0-47.0); Hemoglobin 11.9 g/dl (12.0-16.0); Mean Corpuscular HGB Conc 31.9 g/dl (31.0-35.0); Mean Corpuscular Hemoglobin 27.4 pg (27.0-33.0); Mean Corpuscular Volume 85.7 fL (80.0-98.0); Mean Platelet Volume 9.8 fL (9.4-12.3); Platelet Count 252 X10*3/uL (160-400); Red Blood Count 4.35 X10*6/uL (4.20-5.50); Red Cell Distribution Width 12.8 % (11.0-16.0)
[2023-07-10 10:01] LABS: Estimated Average Glucose 140 mg/dL; Hemoglobin A1C 148.7726 umol/L; Hemoglobin A1c % 6.5 % (<6.0)
[2023-07-10 10:21] LABS: Alanine Aminotransferase 18 U/L (0-31); Albumin Level 4.3 g/dL (3.5-5.0); Alkaline Phosphatase 47 U/L (39-117); Anion Gap 13 (12-20); Aspartate Amino Transferase 16 U/L (5-31); Bilirubin Total 0.5 mg/dL (0.0-1.0); Blood Urea Nitrogen 13 mg/dL (9-16); Calcium 10.2 mg/dL (8.4-10.2); Carbon Dioxide 23 mmol/L (22-29); Chloride 107 mmol/L (96-108); Estimated Glomerular Filt Rate > 60; Glucose Fasting 127 mg/dL (60-99); Potassium 4.3 mmol/L (3.3-5.1); Sodium 139 mmol/L (135-145); Total Protein 7.6 g/dL (6.5-8.0)
== END 2023-07-10 09:02 | disposition home or self-care (01) ==
LOC: HO.LAB 09:01
PROVIDERS: PCP Physician Assistant; Visit Provider Physician Assistant
DX: I10 Essential (primary) hypertension (principal); E11.65 Type 2 diabetes mellitus with hyperglycemia
CPT/HCPCS: 36415; 80053; 83036; 85027

== ENCOUNTER 2023-07-28 13:34 | Outpatient (AMB) | payer OTHER, SELFPAY ==
--- NOTE | 2023-07-28 13:51 | MHC.PC.OV ---
Vital Signs 07/28/23 13:53 Height 5 ft 4 in Weight 158 lb 4 oz BMI 27.2 BP 124/74 Blood Pressure Location Lt brachial Position Sitting Respiration 17 Pulse 85 Pulse Source Pulse Oximeter Pulse Oximetry (%) 98 Oxygen Delivery Method Room Air Intake Visit Reasons: f/u DMII Intake Note: Pt is here for DMII F/U. Requesting two referral INSURANCE UNDERWRITING ASSISTANT and GI. Pt has not yet received the call for the endoscopy. On Air Director Required: No Accompanied by: Self / Same As Patient Allergies dicyclomine [From BENTYL] Allergy (Unknown, Verified 07/28/23 14:07) HIVES hydrocodone [HYDROCODONE] Allergy (Unknown, Verified 07/28/23 14:07) UNKNOWN ibuprofen [From MOTRIN] Allergy (Unknown, Verified 07/28/23 14:07) HIVES Iodinated Contrast Media [IV CONTRAST] Allergy (Unknown, Verified 07/28/23 14:07) ITCHING minocycline [MINOCYCLINE] Allergy (Unknown, Verified 07/28/23 14:07) UNK morphine [MORPHINE] Allergy (Unknown, Verified 07/28/23 14:07) UNKNOWN naproxen [NAPROXEN] Allergy (Unknown, Verified 07/28/23 14:07) UNKOWN peanut [PEANUT] Allergy (Unknown, Verified 07/28/23 14:07) HIVES sulfamethoxazole [From BACTRIM] Allergy (Unknown, Verified 07/28/23 14:07) UNKNOWN tramadol [TRAMADOL] Allergy (Unknown, Verified 07/28/23 14:07) UNK trimethoprim [From BACTRIM] Allergy (Unknown, Verified 07/28/23 14:07) UNKNOWN lisinopril Allergy (Verified 07/28/23 14:07) Abdominal Pain metronidazole [From Flagyl] Allergy (Verified 07/28/23 14:07) Hives amitriptyline [AMITRIPTYLINE] Adverse Reaction (Mild, Verified 07/28/23 14:07) HYPER metoclopramide [From REGLAN] Adverse Reaction (Mild, Verified 07/28/23 14:07) HYPER latex [LATEX] Adverse Reaction (Unknown, Verified 07/28/23 14:07) RASH phenylephrine [PHENYLEPHRINE] Adverse Reaction (Unknown, Verified 07/28/23 14:07) UNKNOWN promethazine [From PHENERGAN] Adverse Reaction (Unknown, Verified 07/28/23 14:07) UNK From REGLAN Allergy (Unknown, Uncoded 07/28/23 14:05) UNKNOWN SHELLFISH Allergy (Unknown, Uncoded 07/28/23 14:05) HIVES Medication List - Last Reconciled 07/28/23 by Celso Mathur PA-C acetaminophen 500 mg PO QID 30 days atorvastatin 40 mg PO DAILY blood sugar diagnostic (FreeStyle Test strips) As directed blood-glucose meter (FreeStyle [place] Lite kit) As directed dulaglutide (Trulicity) 1.5 mg subcut QWEEK epinephrine (EpiPen 2-Rashard) 0.3 mg (0.3 mL) IM Q4H PRN 30 days esomeprazole magnesium 40 mg PO DAILY 90 days lactulose 10 grams PO BEDTIME lancets (FreeStyle Lancets) As directed losartan 50 mg PO DAILY 90 days metformin ER 1,000 mg (2 x 500 mg) PO DAILY 90 days miconazole nitrate (Monistat 3) 1 appful vaginal BEDTIME 3 days nystatin 5 mL buccal TID PRN 10 days ondansetron 4 mg PO Q8H PRN peg-electrolyte soln 420 gram 240 mL PO Q10M polyethylene glycol 3350 (HealthyLax) 17 grams PO DAILY PRN triamcinolone acetonide 0.1% 1 appl topical DAILY 15 days Tobacco use date assessed: 03/25/23 Fall risk assessment: No Falls in past year Last assessed Fall Risk: 07/28/23 Dental Screening Dental Screen Date: 07/28/23 Did you have a dental visit in the last 12 months?: Yes Did you have a dental problem in the last 6 months where you did not have access to dental care?: No Was dental information given to patient?: Patient has dentist HPI f/u DMII HPI Details Patient is a 67-year-old female here today for follow-up visit..? Patient has a past medical history significant for DMII/ HTN, HLD. .. Concern--> continues to abdominal pain mostly postprandially. She has use PPI therapy without much relief. She was referred to GI though has not been able to be scheduled for as of yet. She otherwise denies any vomiting or diarrhea. She has noted some weight loss though most likely secondary to Trulicity . .. DMII:? Patient continues on metformin 500 daily and recently increased Trulicity to 1 mg weekly.? Most recent? A1c is 6.5 from 7.2 We have increase her metformin dose to 1000 mg daily.? .. HTN :? DOes check her BP at home and report 120s systiolic. Blood pressure today in office acceptable. ,, Hyperlipidemia:? Patient's most recent lipid panel acceptable with LDL below 100. [facility] Medical History HTN (hypertension) Migraine GERD (gastroesophageal reflux disease) Diabetes Surgical History Hx of colonoscopy History of esophagogastroduodenoscopy (EGD) S/P carpal tunnel release Family History Maternal Grandmother Colon cancer Social History Housing: Apartment Alcohol intake: never Patient Tobacco Use Status: Never used Tobacco e-Cigarette/Vaping Use: Never Used Second Hand Smoke Exposure: No service: No Current occupational status: disabled Cognitive needs: No Hearing needs: No Vision needs: No Questionnaire Thrive Questionnaire Date Thrive assessed: 03/25/23 CAMILLE-7 AMB Questionnaire CAMILLE-7 Date CAMILLE - 7 assessed: 03/25/23 Source: Developed by Drs. Tawanda Flores, Aparna Potter, Joon Adair and colleagues, with an educational sacha from [employer]. Review of Systems Const Denies headache(s) Eyes Denies loss of vision ENT Denies vertigo, Denies dizziness, Denies headache(s) and Denies sore throat Card Denies chest pain, Denies leg edema and Denies lightheadedness Resp Denies cough, Denies hemoptysis and Denies wheezing GI Denies abdominal pain, Denies melena, Denies constipation, Denies diarrhea and Denies vomiting Denies urinary frequency, Denies dysuria and Denies urinary urgency Musc Denies arthralgias, Denies joint swelling, Denies numbness and Denies tingling Neuro Denies Abnormal speech present, Denies behavioral changes, Denies vertigo, Denies dizziness, Denies headache(s), Denies loss of vision, Denies memory loss, Denies numbness and Denies tingling Psych Denies anxiety, Denies behavioral changes, Denies depression, Denies memory loss and Denies panic attacks Pawan/Lymph Denies easy bleeding and Denies easy bruising Aller/Immun Denies wheezing Physical exam (Primary Care) Vital Signs: Last Vital Signs Pulse 85 07/28/23 13:53 Resp 17 07/28/23 13:53 BP 124/74 07/28/23 13:53 Pulse Ox 98 07/28/23 13:53 Oxygen Delivery Method Room Air 07/28/23 13:53 BMI result Body Mass Index 27.2 Tobacco/Smoking Status: Tobacco use Status Tobacco use date assessed 03/25/23 07/28/23 13:51 Patient Tobacco Use Status Never used Tobacco 07/28/23 13:51 e-Cigarette/Vaping Use Never Used 07/28/23 13:51 Thrive Assessment: Date of Thrive Assessment Date Thrive assessed 03/25/23 07/28/23 13:51 Const General: healthy appearing, no acute distress, alert and awake Nutritional Appearance: well nourished Orientation/consciousness: oriented to person, oriented to place and oriented to time HENMT Ears: TM's normal bilaterally General nose exam: Normal nasal mucous membranes and turbinates present Eyes Conjunctivae: conjunctivae normal Sclerae: sclerae normal Pupils: Equal, round and reactive pupils present Neck Neck: Yes no lymphadenopathy and Yes no JVD Thyroid: Thyroid normal Carotids: no bruits Resp Effort & Inspection: normal respiratory effort and not tachypneic Auscultation: no crackles, no rales, no rhonchi and no wheezes Cardio Rate: regular rate Rhythm: regular rhythm Heart sounds: no murmurs and normal S1 and S2 GI Palpation (GI): Soft to palpation, nontender, no hepatomegaly and no splenomegaly Auscultation: normal bowel sounds Skin General skin exam: no rashes or lesions noted and dry skin Neuro General: oriented to person, oriented to place and oriented to time Cranial nerves: Yes Equal, round and reactive pupils present Speech: No Abnormal speech present Gait exam (Neuro): Normal gait present Motor exam (neuro): no tremor noted Extrem Right upper extremity: full ROM Left upper extremity: full ROM Right lower extremity: full ROM; no edema Left lower extremity: full ROM; no edema Psych Mental Status: mental status grossly normal Speech and movement: Normal speech and movement present Affect: normal affect Attitude: cooperative Thought process: Normal thought process present Assessment and Plan Assessment & Plan (1) HTN (hypertension): Code(s): I10 - Essential (primary) hypertension Qualifiers: Hypertension type: primary hypertension Qualified Code(s): I10 - Essential (primary) hypertension Plan: Blood pressure today in office acceptable. Will continue her current dose of losartan with goal blood pressure to remain below 140/90. (2) DMII (diabetes mellitus, type 2): Code(s): E11.9 - Type 2 diabetes mellitus without complications Qualifiers: Diabetes mellitus complication status: with hyperglycemia Diabetes mellitus correction insulin use: without termite exterminator use Qualified Code(s): E11.65 - Type 2 diabetes mellitus with hyperglycemia Plan: Patient's type 2 diabetes now controlled, patient continues on metformin and Trulicity. Her Trulicity dose recently increased to 1.5mg and her A1c much has improved. Has lost a few lb since last office visit as well. Has been working on lifestyle modifications to help control her diabetes . Goal A1c to be below 7.0 (3) HLD (hyperlipidemia): Code(s): E78.5 - Hyperlipidemia, unspecified Qualifiers: Hyperlipidemia type: mixed hyperlipidemia Qualified Code(s): E78.2 - Mixed hyperlipidemia Plan: Patient's most recent lipid panel showing appropriate LDL. Will continue her current dose of statin therapy with goal LDL to be below 100 (4) GERD (gastroesophageal reflux disease): Code(s): K21.9 - Gastro-esophageal reflux disease without esophagitis Qualifiers: Esophagitis presence: without esophagitis Qualified Code(s): K21.9 - Gastro-esophageal reflux disease without esophagitis Plan: Patient reports she continues to have daily epigastric pain and GERD symptoms over the last 2 months. Has been using use omeprazole without much relief. She does report having history of H pylori infection and having a large hiatal hernia on endoscopy. She is not have any follow-up with her billing services manager. She is interested in reestablishing care with a billing services manager in getting endoscopy to rule out peptic ulcer disease. (5) Hiatal hernia: Code(s): K44.9 - Diaphragmatic hernia without obstruction or gangrene Plan: Patient reports a history of a large hiatal hernia. Has been recently having GERD like symptoms and would like repeat endoscopy (6) Hair thinning: Code(s): L65.9 - Nonscarring hair loss, unspecified Plan: Reports some hair thinning over the last year. Will check her TSH Orders: Orders TSH reflex Free T4 07/28/23 L65.9 - Nonscarring hair loss, unspecified Comprehensive [place]. Panel Fast 07/28/23 E11.65 - Type 2 diabetes mellitus with hyperglycemia Complete Blood Count no Diff 07/28/23 E11.65 - Type 2 diabetes mellitus with hyperglycemia Microalbumin, Random (w Creat) 07/28/23 I10 - Essential (primary) hypertension Lipid Panel 07/28/23 E11.65 - Type 2 diabetes mellitus with hyperglycemia Referrals ROBOTIC WELD TECHNICIAN Referral N76.0 - Acute vaginitis Gastroenterology Referral K21.9 - Gastro-esophageal reflux disease without esophagitis Medications: New dulaglutide (Trulicity) 1.5 mg (0.5 mL) subcut QWEEK 4 weeks 2 mL 3RF E11.65 - Type 2 diabetes mellitus with hyperglycemia Coding Level of Care Code Est Pt Level 4 (12398) Diagnoses Primary hypertension I10 Hypertension type: primary hypertension Type 2 diabetes mellitus with hyperglycemia, without long-term current use of insulin E11.65 Diabetes mellitus complication status: with hyperglycemia Diabetes mellitus correction insulin use: without termite exterminator use Mixed hyperlipidemia E78.2 Hyperlipidemia type: mixed hyperlipidemia Gastroesophageal reflux disease without esophagitis K21.9 Esophagitis presence: without esophagitis Hiatal hernia K44.9 Hair thinning L65.9
[2023-07-28 13:53] VITALS: BP 124/74; PULSE 85; RESP 17; O2SAT 98; BMI 27.2
== END 2023-07-28 14:21 | disposition home or self-care (01) ==
PROVIDERS: PCP Physician Assistant; Visit Provider Physician Assistant
DX: I10 Essential (primary) hypertension (principal); E11.65 Type 2 diabetes mellitus with hyperglycemia; E78.2 Mixed hyperlipidemia; K21.9 Gastro-esophageal reflux disease without esophagitis; K44.9 Diaphragmatic hernia without obstruction or gangrene; L65.9 Nonscarring hair loss, unspecified
CPT/HCPCS: 99214

== ENCOUNTER 2023-09-09 07:56 | Day surgery (SDC) | payer OTHER, SELFPAY ==
--- NOTE | 2023-09-08 10:27 | HO.ANESPROP2 ---
Documented by User: Vianey Montero NP 09/08/23 10:29 HPI - Anesthesia Eval Consult details Narrative: 68yo F for Upper Endoscopy *Multiple allergies* Anesthesia Pre-Procedure Meds Is the patient on any of the following meds?: Dulaglutide (Trulicity) (Last dose 09/02/23) PMF Active Problems Active Problems: All Active Problems (Updated 07/28/23 @ 14:19 by Celso Mathur PA-C) Hair thinning (Acute) Post-menopausal (Acute) Vaginitis (Acute) Colon cancer screening (Acute) Medicare annual wellness visit, initial (Acute) Thrush (Acute) Angioedema (Acute) Acute urticaria (Acute) Hiatal hernia (Acute) GERD (gastroesophageal reflux disease) (Acute) S/P carpal tunnel release (Acute) Dermatitis (Acute) HLD (hyperlipidemia) (Acute) IBS (irritable bowel syndrome) (Acute) Postprandial abdominal bloating (Acute) GERD (gastroesophageal reflux disease) (Acute) HTN (hypertension) (Acute) DMII (diabetes mellitus, type 2) (Acute) Past Medical History Medical History HTN (hypertension) Migraine GERD (gastroesophageal reflux disease) Diabetes Family History Family History Maternal Grandmother Colon cancer Surgical History Surgical History Hx of colonoscopy History of esophagogastroduodenoscopy (EGD) S/P carpal tunnel release Social History Social History Housing: Apartment Alcohol intake: never Patient Tobacco Use Status: Never used Tobacco e-Cigarette/Vaping Use: Never Used Second Hand Smoke Exposure: No service: No Current occupational status: disabled Cognitive needs: No Hearing needs: No Vision needs: No Meds Allergies Allergy/AdvReac Type Severity Reaction Status Date / Time dicyclomine [From BENTYL] Allergy Unknown HIVES Verified 07/28/23 14:07 hydrocodone [HYDROCODONE] Allergy Unknown UNKNOWN Verified 07/28/23 14:07 ibuprofen [From MOTRIN] Allergy Unknown HIVES Verified 07/28/23 14:07 Iodinated Contrast Media Allergy Unknown ITCHING Verified 07/28/23 14:07 [IV CONTRAST] minocycline [MINOCYCLINE] Allergy Unknown UNK Verified 07/28/23 14:07 morphine [MORPHINE] Allergy Unknown UNKNOWN Verified 07/28/23 14:07 naproxen [NAPROXEN] Allergy Unknown UNKOWN Verified 07/28/23 14:07 peanut [PEANUT] Allergy Unknown HIVES Verified 07/28/23 14:07 sulfamethoxazole Allergy Unknown UNKNOWN Verified 07/28/23 14:07 [From BACTRIM] tramadol [TRAMADOL] Allergy Unknown UNK Verified 07/28/23 14:07 trimethoprim [From BACTRIM] Allergy Unknown UNKNOWN Verified 07/28/23 14:07 lisinopril Allergy Abdominal Verified 07/28/23 14:07 Pain metronidazole [From Flagyl] Allergy Hives Verified 07/28/23 14:07 amitriptyline [AMITRIPTYLINE] AdvReac Mild HYPER Verified 07/28/23 14:07 metoclopramide [From REGLAN] AdvReac Mild HYPER Verified 07/28/23 14:07 latex [LATEX] AdvReac Unknown RASH Verified 07/28/23 14:07 phenylephrine [PHENYLEPHRINE] AdvReac Unknown UNKNOWN Verified 07/28/23 14:07 promethazine [From PHENERGAN] AdvReac Unknown UNK Verified 07/28/23 14:07 From REGLAN Allergy Unknown UNKNOWN Uncoded 07/28/23 14:05 SHELLFISH Allergy Unknown HIVES Uncoded 07/28/23 14:05 Home Medications Medication Instructions Recorded Confirmed Last Taken Type lactulose 10 gram/15 mL oral 10 g PO BEDTIME prn constipatio 11/08/22 07/28/23 Unknown History solution Exam Exam Date and Time: September 08, 2023 102 Pertinent Lab Results Pertinent Lab Results: Laboratory Tests 07/10/23 09:15 WBC 7.0 Hgb 11.9 L Hct 37.3 Plt Count 252 Sodium 139 Potassium 4.3 Chloride 107 Carbon Dioxide 23 BUN 13 Creatinine 0.79 Assessment and Plan Assessment Anesthesia Assessment: Chart Reviewed Documented by User: Marlene Crawley MD 09/09/23 09:37 HPI - Anesthesia Eval Anesthesia Pre-Procedure Meds If Yes to any meds - educate patient: Pt education - increased risk of aspiration PMFSH Active Problems Active Problems: All Active Problems (Updated 09/09/23 @ 09:02 by Marlene Crawley MD) Hair thinning (Acute) Post-menopausal (Acute) Vaginitis (Acute) Colon cancer screening (Acute) Medicare annual wellness visit, initial (Acute) Thrush (Acute) Angioedema (Acute) Acute urticaria (Acute) Hiatal hernia (Acute) GERD (gastroesophageal reflux disease) (Acute) S/P carpal tunnel release (Acute) Dermatitis (Acute) HLD (hyperlipidemia) (Acute) IBS (irritable bowel syndrome) (Acute) Postprandial abdominal bloating (Acute) HTN (hypertension) (Acute) DMII (diabetes mellitus, type 2) (Acute) Past Medical History Medical History HTN (hypertension) Migraine GERD (gastroesophageal reflux disease) Diabetes Family History Family History Maternal Grandmother Colon cancer Family history of problems with anesthesia: No Surgical History Surgical History Hx of colonoscopy History of esophagogastroduodenoscopy (EGD) S/P carpal tunnel release History of Problems with Anesthesia: No Social History Social History Housing: Apartment Alcohol intake: never Patient Tobacco Use Status: Never used Tobacco e-Cigarette/Vaping Use: Never Used Second Hand Smoke Exposure: No service: No Current occupational status: disabled Cognitive needs: No Hearing needs: No Vision needs: No Meds Allergies Allergy/AdvReac Type Severity Reaction Status Date / Time dicyclomine [From BENTYL] Allergy Unknown HIVES Verified 07/28/23 14:07 hydrocodone [HYDROCODONE] Allergy Unknown UNKNOWN Verified 07/28/23 14:07 ibuprofen [From MOTRIN] Allergy Unknown HIVES Verified 07/28/23 14:07 Iodinated Contrast Media Allergy Unknown ITCHING Verified 07/28/23 14:07 [IV CONTRAST] minocycline [MINOCYCLINE] Allergy Unknown UNK Verified 07/28/23 14:07 morphine [MORPHINE] Allergy Unknown UNKNOWN Verified 07/28/23 14:07 naproxen [NAPROXEN] Allergy Unknown UNKOWN Verified 07/28/23 14:07 peanut [PEANUT] Allergy Unknown HIVES Verified 07/28/23 14:07 sulfamethoxazole Allergy Unknown UNKNOWN Verified 07/28/23 14:07 [From BACTRIM] tramadol [TRAMADOL] Allergy Unknown UNK Verified 07/28/23 14:07 trimethoprim [From BACTRIM] Allergy Unknown UNKNOWN Verified 07/28/23 14:07 lisinopril Allergy Abdominal Verified 07/28/23 14:07 Pain metronidazole [From Flagyl] Allergy Hives Verified 07/28/23 14:07 amitriptyline [AMITRIPTYLINE] AdvReac Mild HYPER Verified 07/28/23 14:07 metoclopramide [From REGLAN] AdvReac Mild HYPER Verified 07/28/23 14:07 latex [LATEX] AdvReac Unknown RASH Verified 07/28/23 14:07 phenylephrine [PHENYLEPHRINE] AdvReac Unknown UNKNOWN Verified 07/28/23 14:07 promethazine [From PHENERGAN] AdvReac Unknown UNK Verified 07/28/23 14:07 From REGLAN Allergy Unknown UNKNOWN Uncoded 07/28/23 14:05 SHELLFISH Allergy Unknown HIVES Uncoded 07/28/23 14:05 Home Medications Medication Instructions Recorded Confirmed Last Taken Type lactulose 10 gram/15 mL oral 10 g PO BEDTIME prn constipatio 11/08/22 07/28/23 Unknown History solution Exam Height,Weight and Vital Signs: Height 5 ft 4 in Weight 73.028 kg Vital Signs Temp Pulse Resp BP Pulse Ox O2 Del Method 09/09/23 09:13 96.9 F 79 18 136/81 98 Room Air Pertinent Lab Results Pertinent Lab Results: Laboratory Tests 07/10/23 09:15 WBC 7.0 Hgb 11.9 L Hct 37.3 Plt Count 252 Sodium 139 Potassium 4.3 Chloride 107 Carbon Dioxide 23 BUN 13 Creatinine 0.79 Lab Results 09/09/23 Range/Units 08:59 POC Glucose 129 H (60-115) mg/dL Airway Mallampati Class: II TM Dist: >3cm Neck ROM: Full Partial: Upper Loose/Missing/Broken Teeth: Yes (Many missing teeth. Denies broken or loose teeth) Heart: RRR Lungs: CTAB Assessment and Plan Assessment Anesthesia Assessment: Anesthesia Plan Discussed Final Anesthetic Review Family History of Problems with Anesthesia: No History of Problems with Anesthesia: No NPO: Yes ASA Class: III Final Preanesthetic Review: No Changes in Pt Med Stat, Meds/Allgs Chart Reviewed, Consent Obtained/Reviewed and Anes Risks/Benef Reviewed Patient Risk: Intermediate Procedure Risk: Low Assessment/Block/Sedation in SS: Assess/Block/Sedation-SS Anesthetic Plan Anesthetic Plan: MAC: Disposition: Standard PACU
[2023-09-09 09:06] LABS: Glucose, Whole Blood 129 mg/dL (60-115)
[2023-09-09 09:10] VITALS: BMI 27.6
[2023-09-09 09:13] VITALS: BP 136/81; PULSE 79; RESP 18; TEMP 36.1; O2SAT 98
--- NOTE | 2023-09-09 09:13 | MHC.SHP ---
Pre-Procedural Eval Section A Date of Service: 09/09/23 Section B Chief Complaint: epigastric pain Details of Present Illness: not having dysphagia now Relevant Family History (Specify if Yes): Yes Relevant Social History: None Present Medications: see Short Stay [facility] assessment Medical History: Significant History (HTN (hypertension) Migraine GERD (gastroesophageal reflux disease) Diabetes) History of Previous Operations: Relevant previous surgery/procedure and date(s) (carpal tunnel release) Allergies: Allergies Allergy/AdvReac Type Severity Reaction Status Date / Time dicyclomine [From BENTYL] Allergy Unknown HIVES Verified 07/28/23 14:07 hydrocodone [HYDROCODONE] Allergy Unknown UNKNOWN Verified 07/28/23 14:07 ibuprofen [From MOTRIN] Allergy Unknown HIVES Verified 07/28/23 14:07 Iodinated Contrast Media Allergy Unknown ITCHING Verified 07/28/23 14:07 [IV CONTRAST] minocycline [MINOCYCLINE] Allergy Unknown UNK Verified 07/28/23 14:07 morphine [MORPHINE] Allergy Unknown UNKNOWN Verified 07/28/23 14:07 naproxen [NAPROXEN] Allergy Unknown UNKOWN Verified 07/28/23 14:07 peanut [PEANUT] Allergy Unknown HIVES Verified 07/28/23 14:07 sulfamethoxazole Allergy Unknown UNKNOWN Verified 07/28/23 14:07 [From BACTRIM] tramadol [TRAMADOL] Allergy Unknown UNK Verified 07/28/23 14:07 trimethoprim [From BACTRIM] Allergy Unknown UNKNOWN Verified 07/28/23 14:07 lisinopril Allergy Abdominal Verified 07/28/23 14:07 Pain metronidazole [From Flagyl] Allergy Hives Verified 07/28/23 14:07 amitriptyline [AMITRIPTYLINE] AdvReac Mild HYPER Verified 07/28/23 14:07 metoclopramide [From REGLAN] AdvReac Mild HYPER Verified 07/28/23 14:07 latex [LATEX] AdvReac Unknown RASH Verified 07/28/23 14:07 phenylephrine [PHENYLEPHRINE] AdvReac Unknown UNKNOWN Verified 07/28/23 14:07 promethazine [From PHENERGAN] AdvReac Unknown UNK Verified 07/28/23 14:07 From REGLAN Allergy Unknown UNKNOWN Uncoded 07/28/23 14:05 SHELLFISH Allergy Unknown HIVES Uncoded 07/28/23 14:05 Review of Systems Sugical H&P ROS: Negative: Constitution, Cardiovascular, Respiratory, Neurological, Psychiatric, Hem-Onc, Allergic/Immunologic, Gastrointestinal, Genitourinary, Musculoskeletal, Integumentary, Endocrine and Eyes/Ears/Nose/Throat Exam Surgical H&P Exam: Normal: HEENT, Normal: Heart, Normal: Lungs, Normal: Extremities, Normal: Abdomen, Normal: Skin and Normal: Neurological Plan Diagnosis/Plan: Unchanged I have reviewed the history and physical and performed a pertinent physical examination on my patient. No changes have occurred unless specified. Time Spent With Patient Time: Total time managing care of this patient today ____ minutes.
--- NOTE | 2023-09-09 09:35 | W.PM.OPN ---
Operative Note Operative Note Date of Service: 09/09/23 Narrative: Procedure Description: EGD Indication: epigastric pain Anesthesia: MAC FLEXIBLE TRANSORAL UPPER GASTROINTESTINAL ENDOSCOPY UPPER ENDOSCOPY Consent: Indications for the procedure and potential complications of bleeding, perforation, reaction to medications and missed diagnosis were discussed with the patient and informed consent was obtained. Instrument: Olympus GIF H 190 J mid size upper endoscope Monitoring: Vital signs and clinical assessment, continuous EKG monitoring, Pulse oximetry, Carbon Dioxide monitoring and blood pressure monitoring were done throughout the procedure. Procedure: The patient was placed in the left lateral decubitis position and pre-procedure medications were administered and a bite block was placed. The endoscope was inserted into the mouth and advanced under direct vision to the third part of duodenum. A careful inspection was made as the upper endoscope was withdrawn including a retroflexed examination of the proximal stomach; Findings and interventions are described below. Findings: Larynx:normal Esophagus: GE junction at 38 cm, diaphragm hiatus at 38 cm, small island of salmon pink tissue, bx taken, aslo bx taken from gEJ, distal and proximal esophagus. LES extremely lax Stomach: Patchy gastric erythema and granularity. Biopsies were obtained. Grade 2 flap valve on retroflexed examination of the cardia. Bile acid refluxate noted as well Duodenum: Normal bulb and descending duodenum, bx taken Intervention: Biopsies as noted above Impression/Findings: lax LES gastritis bile acid reflux possible barretts PLAN: await bx if bx negative then will consider Ct scan for further w/u of her sx
[2023-09-09 09:57] VITALS: BP 115/73; PULSE 87; RESP 16; TEMP 36.4; O2SAT 99
[2023-09-09 10:12] VITALS: BP 140/86; PULSE 82; RESP 16; TEMP 36.4; O2SAT 97
== END 2023-09-09 12:19 | disposition home or self-care (01) ==
PROVIDERS: PCP Physician Assistant; Visit Provider Internal Medicine Gastroenterology
PROC: 0DJ08ZZ Inspection of Upper Intestinal Tract, Via Natural or Artificial Opening Endoscopic (ICD-10-PCS; CPT 43235; principal; 2023-09-09 09:50)
DX: K29.70 Gastritis, unspecified, without bleeding (principal); K21.9 Gastro-esophageal reflux disease without esophagitis; K22.4 Dyskinesia of esophagus; K22.89 Other specified disease of esophagus; R13.10 Dysphagia, unspecified; E11.9 Type 2 diabetes mellitus without complications; I10 Essential (primary) hypertension; K58.9 Irritable bowel syndrome, unspecified; Z80.0 Family history of malignant neoplasm of digestive organs
CPT/HCPCS: 43239; 82947; 88305; 88342

== ENCOUNTER → 2023-09-09 07:56 | Outpatient (BNV) | payer OTHER, SELFPAY | PROVIDERS: PCP Physician Assistant; Visit Provider Internal Medicine Gastroenterology | DX: K20.90 Esophagitis, unspecified without bleeding (principal); K29.70 Gastritis, unspecified, without bleeding; K22.4 Dyskinesia of esophagus | CPT/HCPCS: 43239 ==

== ENCOUNTER 2023-09-10 14:21 | Outpatient (AMB) | payer OTHER, SELFPAY ==
--- NOTE | 2023-09-10 14:30 | MHC.PC.OV ---
Vital Signs 09/10/23 14:31 Height 5 ft 7 in Weight 157 lb 6 oz BMI 24.6 BP 138/76 Blood Pressure Location Lt brachial Position Sitting Respiration 17 Pulse 65 Pulse Source Pulse Oximeter Pulse Oximetry (%) 98 Oxygen Delivery Method Room Air Intake Visit Reasons: f/u endoscopy Residential Insurance Inspector Required: No Accompanied by: Self / Same As Patient Allergies dicyclomine [From BENTYL] Allergy (Unknown, Verified 07/28/23 14:07) HIVES hydrocodone [HYDROCODONE] Allergy (Unknown, Verified 07/28/23 14:07) UNKNOWN ibuprofen [From MOTRIN] Allergy (Unknown, Verified 07/28/23 14:07) HIVES Iodinated Contrast Media [IV CONTRAST] Allergy (Unknown, Verified 07/28/23 14:07) ITCHING minocycline [MINOCYCLINE] Allergy (Unknown, Verified 07/28/23 14:07) UNK morphine [MORPHINE] Allergy (Unknown, Verified 07/28/23 14:07) UNKNOWN naproxen [NAPROXEN] Allergy (Unknown, Verified 07/28/23 14:07) UNKOWN peanut [PEANUT] Allergy (Unknown, Verified 07/28/23 14:07) HIVES sulfamethoxazole [From BACTRIM] Allergy (Unknown, Verified 07/28/23 14:07) UNKNOWN tramadol [TRAMADOL] Allergy (Unknown, Verified 07/28/23 14:07) UNK trimethoprim [From BACTRIM] Allergy (Unknown, Verified 07/28/23 14:07) UNKNOWN lisinopril Allergy (Verified 07/28/23 14:07) Abdominal Pain metronidazole [From Flagyl] Allergy (Verified 07/28/23 14:07) Hives amitriptyline [AMITRIPTYLINE] Adverse Reaction (Mild, Verified 07/28/23 14:07) HYPER metoclopramide [From REGLAN] Adverse Reaction (Mild, Verified 07/28/23 14:07) HYPER latex [LATEX] Adverse Reaction (Unknown, Verified 07/28/23 14:07) RASH phenylephrine [PHENYLEPHRINE] Adverse Reaction (Unknown, Verified 07/28/23 14:07) UNKNOWN promethazine [From PHENERGAN] Adverse Reaction (Unknown, Verified 07/28/23 14:07) UNK SHELLFISH Allergy (Unknown, Uncoded 07/28/23 14:05) HIVES Medication List - Last Reconciled 09/10/23 by Celso Mathur PA-C acetaminophen 500 mg PO QID 30 days atorvastatin 40 mg PO DAILY blood sugar diagnostic (FreeStyle Test strips) As directed blood-glucose meter (FreeStyle Dulzura Lite kit) As directed dulaglutide (Trulicity) 1.5 mg (0.5 mL) subcut QWEEK 4 weeks epinephrine (EpiPen 2-Rashard) 0.3 mg (0.3 mL) IM Q4H PRN 30 days esomeprazole magnesium 40 mg PO DAILY 90 days lactulose 10 grams PO BEDTIME lancets (FreeStyle Lancets) As directed losartan 50 mg PO DAILY 90 days metformin ER 1,000 mg (2 x 500 mg) PO DAILY 90 days miconazole nitrate (Monistat 3) 1 appful vaginal BEDTIME 3 days nystatin 5 mL buccal TID PRN 10 days ondansetron 4 mg PO Q8H PRN peg-electrolyte soln 420 gram 240 mL PO Q10M polyethylene glycol 3350 (HealthyLax) 17 grams PO DAILY PRN sucralfate (Carafate) 10 mL PO BID triamcinolone acetonide 0.1% 1 appl topical DAILY 15 days Tobacco use date assessed: 03/25/23 Fall risk assessment: No Falls in past year Last assessed Fall Risk: 09/10/23 Dental Screening Dental Screen Date: 09/10/23 Did you have a dental visit in the last 12 months?: Yes Did you have a dental problem in the last 6 months where you did not have access to dental care?: No Was dental information given to patient?: Patient has dentist HPI f/u endoscopy HPI Details Patient is a 68-year-old female here today for follow-up visit. Recently underwent endoscopy and awaiting pathology. Endoscopy to showing some gastric erythema. Biopsies were taken and awaiting pathology. Has been started on liquid Carafate reports her epigastric pain has been better. She also mentions her Trulicity is causing her to be itchy in the area of a inj site. She is willing to trial alternative [facility] Medical History HTN (hypertension) Migraine GERD (gastroesophageal reflux disease) Diabetes Surgical History Hx of colonoscopy History of esophagogastroduodenoscopy (EGD) S/P carpal tunnel release Family History Maternal Grandmother Colon cancer Social History Housing: Apartment Alcohol intake: never Patient Tobacco Use Status: Never used Tobacco e-Cigarette/Vaping Use: Never Used Second Hand Smoke Exposure: No service: No Current occupational status: disabled Cognitive needs: No Hearing needs: No Vision needs: No Questionnaire Thrive Questionnaire Date Thrive assessed: 03/25/23 CAMILLE-7 AMB Questionnaire CAMILLE-7 Date CAMILLE - 7 assessed: 03/25/23 Source: Developed by Drs. Tawanda Flores, Aparna Potter, Joon Adair and colleagues, with an educational sacha from [employer]. Review of Systems Const Denies headache(s) Eyes Denies loss of vision ENT Denies vertigo, Denies dizziness, Denies headache(s) and Denies sore throat Card Denies chest pain, Denies leg edema and Denies lightheadedness Resp Denies cough, Denies hemoptysis and Denies wheezing GI Denies abdominal pain, Denies melena, Denies constipation, Denies diarrhea and Denies vomiting Denies urinary frequency, Denies dysuria and Denies urinary urgency Musc Denies arthralgias, Denies joint swelling, Denies numbness and Denies tingling Neuro Denies Abnormal speech present, Denies behavioral changes, Denies vertigo, Denies dizziness, Denies headache(s), Denies loss of vision, Denies memory loss, Denies numbness and Denies tingling Psych Denies anxiety, Denies behavioral changes, Denies depression, Denies memory loss and Denies panic attacks Pawan/Lymph Denies easy bleeding and Denies easy bruising Aller/Immun Denies wheezing Physical exam (Primary Care) Vital Signs: Last Vital Signs Pulse 65 09/10/23 14:31 Resp 17 09/10/23 14:31 BP 138/76 09/10/23 14:31 Pulse Ox 98 09/10/23 14:31 Oxygen Delivery Method Room Air 09/10/23 14:31 BMI result Body Mass Index 24.6 Tobacco/Smoking Status: Tobacco use Status Tobacco use date assessed 03/25/23 09/10/23 14:36 Patient Tobacco Use Status Never used Tobacco 09/10/23 14:36 e-Cigarette/Vaping Use Never Used 09/10/23 14:36 Thrive Assessment: Date of Thrive Assessment Date Thrive assessed 03/25/23 09/10/23 14:36 Const General: healthy appearing, no acute distress, alert and awake Nutritional Appearance: well nourished Orientation/consciousness: oriented to person, oriented to place and oriented to time HENMT Ears: TM's normal bilaterally General nose exam: Normal nasal mucous membranes and turbinates present Eyes Conjunctivae: conjunctivae normal Sclerae: sclerae normal Pupils: Equal, round and reactive pupils present Neck Neck: Yes no lymphadenopathy and Yes no JVD Thyroid: Thyroid normal Carotids: no bruits Resp Effort & Inspection: normal respiratory effort and not tachypneic Auscultation: no crackles, no rales, no rhonchi and no wheezes Cardio Rate: regular rate Rhythm: regular rhythm Heart sounds: no murmurs and normal S1 and S2 GI Palpation (GI): Soft to palpation, nontender, no hepatomegaly and no splenomegaly Auscultation: normal bowel sounds Skin General skin exam: no rashes or lesions noted and dry skin Neuro General: oriented to person, oriented to place and oriented to time Cranial nerves: Yes Equal, round and reactive pupils present Speech: No Abnormal speech present Gait exam (Neuro): Normal gait present Motor exam (neuro): no tremor noted Extrem Right upper extremity: full ROM Left upper extremity: full ROM Right lower extremity: full ROM; no edema Left lower extremity: full ROM; no edema Psych Mental Status: mental status grossly normal Speech and movement: Normal speech and movement present Affect: normal affect Attitude: cooperative Thought process: Normal thought process present Assessment and Plan Assessment & Plan (1) DMII (diabetes mellitus, type 2): Code(s): E11.9 - Type 2 diabetes mellitus without complications Qualifiers: Diabetes mellitus pantograph operator insulin use: without pantograph operator use Diabetes mellitus complication status: with hyperglycemia Qualified Code(s): E11.65 - Type 2 diabetes mellitus with hyperglycemia Plan: She reports having allergic reaction to Trulicity. Will try Ozempic as an alternative. (2) GERD (gastroesophageal reflux disease): Code(s): K21.9 - Gastro-esophageal reflux disease without esophagitis Qualifiers: Esophagitis presence: with esophagitis Esophagitis bleeding: without hemorrhage Qualified Code(s): K21.00 - Gastro-esophageal reflux disease with esophagitis, without bleeding Plan: Underwent endoscopy yesterday. Has been started with good Carafate reports her pain is much better. She did has some gastric erythema. Biopsies were taken though still pending. Has follow with GI Medications: New semaglutide 1 mg (0.75 mL) subcut QWEEK 4 weeks 3 mL 1RF E11.65 - Type 2 diabetes mellitus with hyperglycemia On Hold dulaglutide (Trulicity) Hold Comment: Doctor's Order 1.5 mg (0.5 mL) subcut QWEEK 4 weeks 2 mL 3RF E11.65 - Type 2 diabetes mellitus with hyperglycemia Coding Level of Care Code Est Pt Level 4 (64491) Diagnoses Type 2 diabetes mellitus with hyperglycemia, without long-term current use of insulin E11.65 Diabetes mellitus pantograph operator insulin use: without penitentiary use Diabetes mellitus complication status: with hyperglycemia Gastroesophageal reflux disease with esophagitis without hemorrhage K21.00 Esophagitis presence: with esophagitis Esophagitis bleeding: without hemorrhage
[2023-09-10 14:31] VITALS: BP 138/76; PULSE 65; RESP 17; O2SAT 98; BMI 24.6
== END 2023-09-10 15:59 | disposition home or self-care (01) ==
LOC: HO.HMGH 14:21
PROVIDERS: PCP Physician Assistant; Visit Provider Physician Assistant
DX: E11.65 Type 2 diabetes mellitus with hyperglycemia (principal); K21.00 Gastro-esophageal reflux disease with esophagitis, without bleeding
CPT/HCPCS: 99214

== ENCOUNTER 2023-11-05 14:05 | Outpatient (REF) | payer OTHER, SELFPAY | END 2023-11-05 14:06 | disposition home or self-care (01) | LOC: HO.LAB 14:05 | PROVIDERS: PCP Physician Assistant; Visit Provider Obstetrics & Gynecology | DX: N76.0 Acute vaginitis (principal); B96.89 Other specified bacterial agents as the cause of diseases classified elsewhere; Z20.2 Contact with and (suspected) exposure to infections with a predominantly sexual mode of transmission | CPT/HCPCS: 0353U; 86780; 86803; 87340; 87389; 87480; 87510; 87660; 99202 ==

== ENCOUNTER 2023-11-05 14:05 | Outpatient (AMB) | payer OTHER, SELFPAY ==
[2023-11-05 14:13] VITALS: BP 130/80; BMI 26.9
--- NOTE | 2023-11-05 14:13 | MHC.OFFVIS ---
Intake Vital Signs 11/05/23 14:13 Height 5 ft 4 in Weight 156 lb 8.451 oz BMI 26.9 BP 130/80 Intake Visit Reasons: New patient vaginitis Jelly Maker Required: No Information Interpreted: non-clinical & clinical Pure Pak Machine Operator: Pure Pak Machine Operator Present (Yris NAVA) Accompanied by: Self / Same As Patient Allergies dicyclomine [From BENTYL] Allergy (Unknown, Verified 11/05/23 14:19) HIVES hydrocodone [HYDROCODONE] Allergy (Unknown, Verified 11/05/23 14:19) UNKNOWN ibuprofen [From MOTRIN] Allergy (Unknown, Verified 11/05/23 14:19) HIVES Iodinated Contrast Media [IV CONTRAST] Allergy (Unknown, Verified 11/05/23 14:19) ITCHING minocycline [MINOCYCLINE] Allergy (Unknown, Verified 11/05/23 14:19) UNK morphine [MORPHINE] Allergy (Unknown, Verified 11/05/23 14:19) UNKNOWN naproxen [NAPROXEN] Allergy (Unknown, Verified 11/05/23 14:19) UNKOWN peanut [PEANUT] Allergy (Unknown, Verified 11/05/23 14:19) HIVES sulfamethoxazole [From BACTRIM] Allergy (Unknown, Verified 11/05/23 14:19) UNKNOWN tramadol [TRAMADOL] Allergy (Unknown, Verified 11/05/23 14:19) UNK trimethoprim [From BACTRIM] Allergy (Unknown, Verified 11/05/23 14:19) UNKNOWN lisinopril Allergy (Verified 11/05/23 14:19) Abdominal Pain metronidazole [From Flagyl] Allergy (Verified 11/05/23 14:19) Hives amitriptyline [AMITRIPTYLINE] Adverse Reaction (Mild, Verified 11/05/23 14:19) HYPER metoclopramide [From REGLAN] Adverse Reaction (Mild, Verified 11/05/23 14:19) HYPER latex [LATEX] Adverse Reaction (Unknown, Verified 11/05/23 14:19) RASH phenylephrine [PHENYLEPHRINE] Adverse Reaction (Unknown, Verified 11/05/23 14:19) UNKNOWN promethazine [From PHENERGAN] Adverse Reaction (Unknown, Verified 11/05/23 14:19) UNK SHELLFISH Allergy (Unknown, Uncoded 11/05/23 14:19) HIVES Post menopausal: Yes HPI HPI Comments History of Present Illness Details The patient is presenting complaining of vaginal discharge associated with foul odor, no other associated symptoms, vaginal itching or any other complaint [facility] Medical History HTN (hypertension) Migraine GERD (gastroesophageal reflux disease) Diabetes Surgical History Hx of colonoscopy History of esophagogastroduodenoscopy (EGD) S/P carpal tunnel release Family History Maternal Grandmother Colon cancer Social History Housing: Apartment Alcohol intake: never Patient Tobacco Use Status: Never used Tobacco e-Cigarette/Vaping Use: Never Used Second Hand Smoke Exposure: No service: No Current occupational status: disabled Cognitive needs: No Hearing needs: No Vision needs: No Review of Systems Const All systems reviewed & are unremarkable except as noted in HPI and below Physical Exam Vital Signs: Last Vital Signs BP 130/80 11/05/23 14:13 BMI result Body Mass Index 26.9 General: Yes no CVA tenderness External Female Exam: normal external appearance and normal appearance of the urethra Speculum Exam - Vagina: normal palpation, Vaginal cyst present (Right vaginal wall 0.5 cm), no lesions and no masses Speculum Exam - Cervix: normal appearance of the cervix, normal palpation, no lesions, no masses and nontender Bimanual exam- vagina & uterus: normal bimanual exam, normal palpation, uterine size normal, normal palpation, uterine shape normal, No Cervical tenderness present and non-tender Bimanual Exam- Adnexa, other: normal adnexae Back/Spine/Pelvis Back: no CVA tenderness Assessment & Plan Assessment & Plan (1) Vaginal cyst: Code(s): N89.8 - Other specified noninflammatory disorders of vagina Plan: Discussed with the patient the finding on physical exam showing a vaginal cyst, recommended vaginal cyst aspiration, if it does not decompensate , will consider excision. All questions answered the patient verbalized understanding. Instructions given the patient to schedule a 2 week follow-up appointment for vaginal cyst aspiration (2) Bacterial vaginosis: Code(s): N76.0 - Acute vaginitis; B96.89 - Other specified bacterial agents as the cause of diseases classified elsewhere Plan: GC and chlamydia cultures with BV panel taken. Per CDC recommendation, will screen for STI, HepBs Ag, HIV, RPR, Hep C Ab ordered. This the patient is allergic to metronidazole will treat with clindamycin of use 100 mg intravaginally at bedtime for 3 days, Instructions given to the patient to refrain from sexual activity or to use condoms consistently and correctly during the BV treatment regimen, not to douch, it might increase the risk for relapse, and to call if symptoms persist or recur. Orders: Orders Hepatitis B Surface Antigen Today Z20.2 - Contact with and (suspected) exposure to infections with a predominantly sexual mode of transmission Hepatitis C Antibody Today Z20.2 - Contact with and (suspected) exposure to infections with a predominantly sexual mode of transmission HIV Ab/Ag Today Z20.2 - Contact with and (suspected) exposure to infections with a predominantly sexual mode of transmission Syphilis Screen Today Z20.2 - Contact with and (suspected) exposure to infections with a predominantly sexual mode of transmission Medications: New clindamycin phosphate 100 mg vaginal BEDTIME 3 ea 0RF 3 days Coding Level of Care Code New Pt Level 3 (72131) Diagnoses Vaginal cyst N89.8 Bacterial vaginosis N76.0; B96.89
== END 2023-11-05 15:04 | disposition home or self-care (01) ==
PROVIDERS: PCP Physician Assistant; Visit Provider Obstetrics & Gynecology
DX: N76.0 Acute vaginitis (principal); B96.89 Other specified bacterial agents as the cause of diseases classified elsewhere
CPT/HCPCS: 99203

== ENCOUNTER 2023-11-12 13:56 | Emergency (ER) | payer OTHER, SELFPAY ==
--- NOTE | ~2023-11-12 | XR_ITS ---
EXAMINATION: PELVIS AND RIGHT HIP, RIGHT SHOULDER CLINICAL INFORMATION: Right hip and right shoulder pain COMPARISON: CT abdomen pelvis 07/24/2019 TECHNIQUE: Single view pelvis with 3 additional views right hip, 3 views shoulder FINDINGS: Mild degenerative changes are present in both hips with some supra-acetabular sclerosis, osteophytes and subchondral cysts. No fractures or dislocations are seen. Marked degenerative change seen at the acromioclavicular joint. Degenerative changes are present at the greater tuberosity with sclerosis and subchondral cyst. In addition, there is calcification at the insertion of the supraspinatus tendon. The glenohumeral joint is not narrowed. No fractures or dislocations. XR/XR shoulder RT min 2V IMPRESSION: Degenerative changes in the right shoulder and hips described above. No acute finding.
--- NOTE | ~2023-11-12 | XR_ITS ---
EXAMINATION: PELVIS AND RIGHT HIP, RIGHT SHOULDER CLINICAL INFORMATION: Right hip and right shoulder pain COMPARISON: CT abdomen pelvis 07/24/2019 TECHNIQUE: Single view pelvis with 3 additional views right hip, 3 views shoulder FINDINGS: Mild degenerative changes are present in both hips with some supra-acetabular sclerosis, osteophytes and subchondral cysts. No fractures or dislocations are seen. Marked degenerative change seen at the acromioclavicular joint. Degenerative changes are present at the greater tuberosity with sclerosis and subchondral cyst. In addition, there is calcification at the insertion of the supraspinatus tendon. The glenohumeral joint is not narrowed. No fractures or dislocations. XR/XR hip RT w PEL1V IMPRESSION: Degenerative changes in the right shoulder and hips described above. No acute finding.
[2023-11-12 14:39] VITALS: BP 153/77; PULSE 74; RESP 16; TEMP 36.6; O2SAT 96; BMI 27.1
--- NOTE | 2023-11-12 14:41 | ED.EXTPRO ---
HPI - Extremity Problem General Chief complaint: General Medical Stated complaint: Dislocation (?) in shoulder, hip pain Time Seen by Provider: 11/12/23 18:01 Source: patient Mode of arrival: ambulatory History of Present Illness HPI Narrative: 68-year-old female with history of diabetes presents with feeling a pop and having pain in her right shoulder when she rolled over onto her right side last night during sleeping. She denies any numbness or tingling into the upper extremity, denies any recent fevers or chills or change in activity regimen. She also reports some right hip pain for approximately 3 days. Related Data Home Medications Medication Instructions Recorded Confirmed lactulose 10 gram/15 mL oral 10 g PO BEDTIME prn constipatio 11/08/22 09/10/23 solution Previous Rx's Medication Instructions Recorded triamcinolone acetonide 0.1 % 1 appl topical DAILY 15 days #30 04/24/22 topical cream grams peg-electrolyte solution 420 gram 240 ml PO Q10M #4,000 mL 11/08/22 oral solution metformin 500 mg tablet,extended 1,000 mg (2 x 500 mg) PO DAILY 90 01/12/23 release 24 hr days #180 tabs acetaminophen 500 mg tablet 500 mg PO QID pain 30 days #120 02/18/23 tabs blood sugar diagnostic (FreeStyle #100 ea 02/27/23 Test strips) blood-glucose meter (FreeStyle #1 ea 02/27/23 Braggadocio Lite kit) lancets 28 gauge (FreeStyle #100 ea 03/15/23 Lancets) epinephrine 0.3 mg/0.3 mL 0.3 mg (0.3 mL) IM Q4H PRN 03/25/23 injection, auto-injector (EpiPen anaphylaxis 30 days #2 ea 2-Rashard) nystatin 100,000 unit/mL oral 5 ml buccal TID PRN mouth 03/25/23 suspension irritation 10 days #60 mL ondansetron 4 mg disintegrating 4 mg PO Q8H PRN nausea and 03/31/23 tablet vomiting #14 tabs polyethylene glycol 3350 17 gram 17 g PO DAILY PRN for constipation 04/16/23 oral powder packet (HealthyLax) #30 packets miconazole nitrate 4 % (200 mg)-2 1 appful vaginal BEDTIME 3 days 04/24/23 % (9 gram)vaginal,prefill #24 grams appl,cream (Monistat 3) atorvastatin 40 mg tablet 40 mg PO DAILY #90 tabs 07/07/23 dulaglutide 1.5 mg/0.5 mL 1.5 mg (0.5 mL) subcut QWEEK 4 07/28/23 subcutaneous pen injector weeks #2 mL (Trulicity) semaglutide 1 mg/dose (2 mg/1.5 1 mg (0.75 mL) subcut QWEEK 4 09/10/23 mL) subcutaneous pen injector weeks #3 mL rabeprazole 20 mg tablet,delayed 20 mg PO DAILY #60 tabs 09/11/23 release sucralfate 1 gram tablet 1 g PO BID #60 tabs 09/17/23 losartan 50 mg tablet 50 mg PO DAILY 90 days #90 tabs 10/16/23 clindamycin phosphate 2 % vaginal 1 appful vaginal BEDTIME 7 days 11/06/23 cream #40 grams Allergies Allergy/AdvReac Type Severity Reaction Status Date / Time dicyclomine [From BENTYL] Allergy Unknown HIVES Verified 11/05/23 14:19 hydrocodone [HYDROCODONE] Allergy Unknown UNKNOWN Verified 11/05/23 14:19 ibuprofen [From MOTRIN] Allergy Unknown HIVES Verified 11/05/23 14:19 Iodinated Contrast Media Allergy Unknown ITCHING Verified 11/05/23 14:19 [IV CONTRAST] minocycline [MINOCYCLINE] Allergy Unknown UNK Verified 11/05/23 14:19 morphine [MORPHINE] Allergy Unknown UNKNOWN Verified 11/05/23 14:19 naproxen [NAPROXEN] Allergy Unknown UNKOWN Verified 11/05/23 14:19 peanut [PEANUT] Allergy Unknown HIVES Verified 11/05/23 14:19 sulfamethoxazole Allergy Unknown UNKNOWN Verified 11/05/23 14:19 [From BACTRIM] tramadol [TRAMADOL] Allergy Unknown UNK Verified 11/05/23 14:19 trimethoprim [From BACTRIM] Allergy Unknown UNKNOWN Verified 11/05/23 14:19 lisinopril Allergy Abdominal Verified 11/05/23 14:19 Pain metronidazole [From Flagyl] Allergy Hives Verified 11/05/23 14:19 amitriptyline [AMITRIPTYLINE] AdvReac Mild HYPER Verified 11/05/23 14:19 metoclopramide [From REGLAN] AdvReac Mild HYPER Verified 11/05/23 14:19 latex [LATEX] AdvReac Unknown RASH Verified 11/05/23 14:19 phenylephrine [PHENYLEPHRINE] AdvReac Unknown UNKNOWN Verified 11/05/23 14:19 promethazine [From PHENERGAN] AdvReac Unknown UNK Verified 11/05/23 14:19 SHELLFISH Allergy Unknown HIVES Uncoded 11/05/23 14:19 Review of Systems Review of Systems: Pertinent positives and negatives as stated in HPI PMFSH Past Medical History Source: nursing notes reviewed Onset Date is defined in the Problem List Problems that require an onset date and time if occurred within 24 hrs of arrival to the ED Aortic Dissection and Rupture; Neurologic impairment; Cardiopulmonary Arrest; Endotracheal Intubation; Insertion or Replacement of Mechanical Circulatory Assist Device Medical History HTN (hypertension) Migraine GERD (gastroesophageal reflux disease) Diabetes Surgical History Hx of colonoscopy History of esophagogastroduodenoscopy (EGD) S/P carpal tunnel release Family History Family History Maternal Grandmother Colon cancer Social History Social History Housing: Apartment Alcohol intake: never Patient Tobacco Use Status: Never used Tobacco e-Cigarette/Vaping Use: Never Used Second Hand Smoke Exposure: No Advance Directives: Yes Advance Directives on File: Yes Advance Directives Date on File: 04/25/23 service: No Current occupational status: disabled Cognitive needs: No Hearing needs: No Vision needs: No Physical Exam Vital Signs: Vital Signs: Last Vital Signs Temp 97.9 F 11/12/23 14:39 Pulse 77 11/12/23 16:48 Resp 16 11/12/23 16:48 BP 151/82 H 11/12/23 16:48 Pulse Ox 98 11/12/23 16:48 O2 Del Method Room Air 11/12/23 16:48 BMI result Body Mass Index 27.1 VITAL SIGNS: Reviewed. GENERAL: Well developed, well nourished, in no acute distress. HEAD: Normocephalic/atraumatic EYES: PERRLA, EOMI LUNGS: Normal breath sounds. No adventitious sounds or accessory muscle use. SpO2<98> CARDIOVASCULAR: Regular rate and rhythm without noted murmurs ABDOMEN: Soft, non-tender, non-distended with bowel sounds. PELVIS: Stable, nontender MUSCULOSKELETAL: No tenderness, deformities, or effusions noted on gross inspection. EXTREMITIES: No cyanosis, clubbing or edema. RIGHT SHOULDER: There is no erythema/induration/fluctuance or swelling noted, there is mild tenderness to palpation over the AC otherwise full range of motion at the shoulder/elbow/wrist and neurovascular is intact distally. SKIN: Inspection of the skin reveals no rashes NEUROLOGIC: Alert and oriented x 4. Strength and sensation to light touch were grossly intact x 4. Course Course Course Narrative: RME: 68 year-old F w/ PMHx GEDR, IBS, Hernia, HTN, diabetes presenting to the ED c/o R shoulder and R hip pain x few days. Denies known injury/trauma or fall. XRs ordered Full HPI, ROS and PE to be performed by primary ED provider. Medical Decision Making Medical Decision Making MDM Narrative: 68-year-old female with history and clinical presentation, DDX: Musculoskeletal pain, arthritis, low clinical suspicion for fracture or dislocation. There are also concerns for possible development of frozen shoulder in the right shoulder given patient's history of diabetes. I reviewed all investigations and imaging studies are inconsistent with dislocation or fracture and instead corroborate the patient has DJD. I discussed all results and findings with her at bedside and recommend continued Tylenol ibuprofen and follow-up with primary care doctor for physical therapy. Differential Diagnosis Differential Diagnoses: The differential diagnosis associated with the presentation includes Please see the discussion above Admission/Observation Consideration of admission/observation: Escalation of care including admission/observation considered Please see the discussion above Radiology Impression Discussion of test interpretation with radiology: I have reviewed the radiologist's reading. Radiologist Impression: Please see the discussion above External Record Review External record reviewed: Outpatient record, Prior outpatient labs and Prior outpatient radiology Chronic Conditions Patient?s care impacted by: Diabetes Critical Care Time Critical Care Time Critical Care Time: Yes Total Critical Care Time: 30 Attestation: I personally attest to this time spent taking care of the patient. Discharge Plan Discharge Clinical Impression: DJD of AC (acromioclavicular) joint, Arthritis, hip Patient Disposition: Home, Self-Care Instructions: Osteoarthritis (ED), Shoulder Pain (ED) Additional Instructions: 1. Resume all home medications as prescribed. 2. Recommend [id number] Tylenol/ibuprofen as needed for pain control. 3. Highly recommend follow-up with primary care doctor and discussion of physical therapy. Return to the ER for any worsening symptoms. Prescriptions: No Action metformin 500 mg tablet extended release 24 hr 1,000 mg PO DAILY 90 Days Qty: 180 1RF acetaminophen 500 mg tablet 500 mg PO QID 30 Days Qty: 120 0RF (DME) blood-glucose meter [FreeStyle Braggadocio Lite] Kit See Rx Instructions .Route Qty: 1 0RF Rx Instructions: As directed (DME) FreeStyle Test Strip See Rx Instructions .Route Qty: 100 1RF Rx Instructions: As directed (DME) lancets [FreeStyle Lancets] 28 gauge misc See Rx Instructions .ROUTE .MEDSUPPLY Qty: 100 3RF Rx Instructions: As directed polyethylene glycol 3350 [HealthyLax] 17 gram powder in packet 17 g PO DAILY PRN (Reason: for constipation) Qty: 30 2RF atorvastatin 40 mg tablet 40 mg PO DAILY Qty: 90 1RF rabeprazole 20 mg tablet,delayed release (DR/EC) 20 mg PO DAILY Qty: 60 1RF sucralfate 1 gram tablet 1 g PO BID Qty: 60 2RF losartan 50 mg tablet 50 mg PO DAILY 90 Days Qty: 90 1RF clindamycin phosphate 2 % cream 1 appful vaginal BEDTIME 7 Days Qty: 40 0RF Rx Instructions: for 3 days ondansetron 4 mg tablet,disintegrating 4 mg PO Q8H PRN (Reason: nausea and vomiting) Qty: 14 0RF semaglutide 1 mg/dose (2 mg/1.5 mL) pen injector 1 mg subcut QWEEK 28 Days Qty: 3 1RF triamcinolone acetonide 0.1 % cream 1 appl topical DAILY 15 Days Qty: 30 1RF miconazole nitrate [Monistat 3] 4 % (200 mg)- 2 % (9 gram) comb pack,prefill appl, cream 1 appful vaginal BEDTIME 3 Days Qty: 24 0RF Rx Instructions: as vaginal cream epinephrine [EpiPen 2-Rashard] 0.3 mg/0.3 mL auto-injector 0.3 mg IM Q4H PRN (Reason: anaphylaxis) 30 Days Qty: 2 0RF nystatin 100,000 unit/mL suspension 5 ml buccal TID PRN (Reason: mouth irritation) 10 Days Qty: 60 0RF Rx Instructions: administer 1/2 of dose in each side of the mouth Trulicity 1.5 mg/0.5 mL pen injector 1.5 mg subcut QWEEK 28 Days Qty: 2 3RF Hold Instructions: Doctor's Order lactulose 10 gram/15 mL solution 10 g PO BEDTIME Rx Instructions: stop if you develop diarrhea peg-electrolyte soln 420 gram recon soln 240 ml PO Q10M Qty: 4000 0RF Rx Instructions: until fecal effluent is clear; do not exceed a total volume of 2,000 mL Referrals: Celso Mathur PA-C [Primary Care Provider] - Interventions: ED Discharge Assessment Last Done: 11/12/23 18:55 Discharge Date/Time: 11/12/23 18:55
--- NOTE | 2023-11-12 14:43 | ECG_ITS ---
Test Reason : SHOULDER PAIN Blood Pressure : / mmHG Vent. Rate : 074 BPM Atrial Rate : 074 BPM P-R Int : 158 ms QRS Dur : 090 ms QT Int : 390 ms P-R-T Axes : 054 -18 031 degrees QTc Int : 432 ms Normal sinus rhythm Normal ECG When compared to the previous EKG of No significant changes seen Referred By: Carmen Vu Electronically Signed By:LUCRETIA ESPINOSA MD
[2023-11-12 16:48] VITALS: BP 151/82; PULSE 77; RESP 16; O2SAT 98
== END 2023-11-12 18:55 | disposition home or self-care (01) ==
PROVIDERS: Emergency Provider Student in an Organized Health Care Education/Training Program; PCP Physician Assistant
DX: M19.011 Primary osteoarthritis, right shoulder (principal); M16.11 Unilateral primary osteoarthritis, right hip; M25.551 Pain in right hip; M25.511 Pain in right shoulder
CPT/HCPCS: 73030; 73502; 93005; 99283; 99284

== ENCOUNTER → 2023-11-12 14:43 | Outpatient (BNV) | payer OTHER, SELFPAY | PROVIDERS: Emergency Provider Student in an Organized Health Care Education/Training Program; PCP Physician Assistant; Visit Provider Internal Medicine Cardiovascular Disease | DX: Z01.818 Encounter for other preprocedural examination (principal); M25.511 Pain in right shoulder | CPT/HCPCS: 93010 ==

== ENCOUNTER 2023-12-05 08:53 | Outpatient (REF) | payer OTHER, SELFPAY ==
[2023-12-05 10:37] LABS: MANUAL DIFF FLAG NO
[2023-12-05 10:46] LABS: Basophils Absolute Auto 0.1 X10*3/uL (0.0-0.2); Basophils Percent Auto 0.5 % (0-2); Eosinophils Absolute Auto 0.2 X10*3/uL (0.0-0.4); Eosinophils Percent Auto 2.2 % (0-4); Hematocrit 40.3 % (37.0-47.0); Hemoglobin 13.3 g/dl (12.0-16.0); Imm Gran Abs Auto 0.06 X10*3/uL (0.00-0.03); Imm Gran Pct Auto 0.6 % (0.0-0.4); Lymphocytes Absolute Auto 2.6 X10*3/uL (1.2-4.9); Lymphocytes Percent Auto 24.9 % (20-40); Mean Corpuscular Hemoglobin 27.7 pg (27.0-33.0); Mean Corpuscular Volume 83.8 fL (80.0-98.0); Mean Platelet Volume 9.1 fL (9.4-12.3); Monocytes Absolute Auto 0.5 X10*3/uL (0.1-1.2); Monocytes Percent Auto 5.2 % (2-11); Neutrophils Percent Auto 66.6 % (45-73); Platelet Count 263 X10*3/uL (160-400); Red Blood Count 4.81 X10*6/uL (4.20-5.50); Red Cell Distribution Width 13.1 % (11.0-16.0); White Blood Count 10.4 X10*3/uL (4.8-10.8)
[2023-12-05 11:23] LABS: Alanine Aminotransferase 21 U/L (0-31); Albumin Level 4.3 g/dL (3.5-5.0); Alkaline Phosphatase 53 U/L (39-117); Anion Gap 15 (12-20); Aspartate Amino Transferase 13 U/L (5-31); Bilirubin Total 0.6 mg/dL (0.0-1.0); Blood Urea Nitrogen 21 mg/dL (9-16); C Reactive Protein 0.13 mg/dL (< or = 0.50); Calcium 9.7 mg/dL (8.4-10.2); Carbon Dioxide 24 mmol/L (22-29); Chloride 104 mmol/L (96-108); Estimated Glomerular Filt Rate 60; Glucose Random 148 mg/dL (60-115); Potassium 3.7 mmol/L (3.3-5.1); Sodium 139 mmol/L (135-145); Total Protein 7.6 g/dL (6.5-8.0)
[2023-12-05 11:42] LABS: Erythrocyte Sedimentation Rate 12 MM/HR (0-20); Ferritin 80 ng/mL (10-250); TSH reflex Free T4 1.03 uIU/mL (0.32-4.0)
[2023-12-05 11:50] LABS: Folate 8.7 ng/mL (> or = 4.0); Vitamin B12 509 pg/mL (200-900)
[2023-12-05 12:29] LABS: Appearance Urine Clear; Color Urine Yellow; Glucose Urine UA Negative (Negative); Leukocyte Esterase Urine Negative (Negative); Nitrite Urine Negative (Negative); Urine Blood Negative (Negative); Urine Ketones Negative (Negative); Urine Protein Negative (Neg-Trace)
== END 2023-12-05 08:54 | disposition home or self-care (01) ==
LOC: HO.LAB 08:53
PROVIDERS: PCP Physician Assistant; Visit Provider Internal Medicine Gastroenterology
DX: R10.84 Generalized abdominal pain (principal); L65.9 Nonscarring hair loss, unspecified; R10.2 Pelvic and perineal pain; R30.0 Dysuria; K75.81 Nonalcoholic steatohepatitis (NASH)
CPT/HCPCS: 36415; 80053; 81003; 82607; 82728; 82746; 84443; 85025; 85652; 86140; 99212

== ENCOUNTER 2023-12-05 08:53 | Outpatient (AMB) | payer OTHER, SELFPAY ==
[2023-12-05 09:05] VITALS: BP 147/77; PULSE 77; BMI 26.9
--- NOTE | 2023-12-05 09:05 | A.OFFVIS_ITS ---
Intake Vital Signs 12/05/23 09:05 Height 5 ft 4 in Weight 156 lb 8.451 oz BMI 26.9 BP 147/77 H Blood Pressure Location Lt brachial Position Sitting Pulse 77 Intake Visit Reasons: f/u EGD Intake Note: Roslyn presents in the office as a follow up EGD. CC: She states that she is still having abdominal pains. Diarrhea, Constipation and GERD. She has a little issue sometimes with swallowing. Directional Drill Operator Required: No Allergies dicyclomine [From BENTYL] Allergy (Unknown, Verified 12/05/23 09:09) HIVES hydrocodone [HYDROCODONE] Allergy (Unknown, Verified 12/05/23 09:09) UNKNOWN ibuprofen [From MOTRIN] Allergy (Unknown, Verified 12/05/23 09:09) HIVES Iodinated Contrast Media [IV CONTRAST] Allergy (Unknown, Verified 12/05/23 09:09) ITCHING minocycline [MINOCYCLINE] Allergy (Unknown, Verified 12/05/23 09:09) UNK morphine [MORPHINE] Allergy (Unknown, Verified 12/05/23 09:09) UNKNOWN naproxen [NAPROXEN] Allergy (Unknown, Verified 12/05/23 09:09) UNKOWN peanut [PEANUT] Allergy (Unknown, Verified 12/05/23 09:09) HIVES sulfamethoxazole [From BACTRIM] Allergy (Unknown, Verified 12/05/23 09:09) UNKNOWN tramadol [TRAMADOL] Allergy (Unknown, Verified 12/05/23 09:09) UNK trimethoprim [From BACTRIM] Allergy (Unknown, Verified 12/05/23 09:09) UNKNOWN lisinopril Allergy (Verified 12/05/23 09:09) Abdominal Pain metronidazole [From Flagyl] Allergy (Verified 12/05/23 09:09) Hives amitriptyline [AMITRIPTYLINE] Adverse Reaction (Mild, Verified 12/05/23 09:09) HYPER metoclopramide [From REGLAN] Adverse Reaction (Mild, Verified 12/05/23 09:09) HYPER latex [LATEX] Adverse Reaction (Unknown, Verified 12/05/23 09:09) RASH phenylephrine [PHENYLEPHRINE] Adverse Reaction (Unknown, Verified 12/05/23 09:09) UNKNOWN promethazine [From PHENERGAN] Adverse Reaction (Unknown, Verified 12/05/23 09:09) UNK SHELLFISH Allergy (Unknown, Uncoded 12/05/23 09:09) HIVES HPI f/u EGD HPI Details 68 yr old f here for f/u RECAP: She has had 15 yr hx of abdominal pain in epigastric area no nausea or vomiting sometimes worse with food she is not taking aspirin or nsaids she has heartburn unsure if nexium helps or not she has alternating diarrhea and constipation for many years she has trouble swallowing usu food or tabs just last few days, she had vocal cord surgery 5 yrs ago no cough, fever, no chest pain, no SOB she is on metfromin and trulicity for DM EGD 09/25: lax LES gastritis bile acid reflux possible barretts path with active esophagitis at [facility] she was changed to rabeprazole INTERIM she is having diffuse abdominal pain- ongoing no nausea or vomiting she is having constipation she refuses colonoscopy, had stool test in past and neg no dysphagia she has mild heartburn sx not so sure that the rabeprazole is helping her much EXAM: GENERAL: The patient is well developed and nontoxic. VITAL SIGNS:see workflow HEENT: Nonicteric sclerae, PERRLA, EOMI. Oropharynx clear. Moist mucous membranes. Conjunctivae appear well perfused. No thyroid mass. CHEST: Chest wall is nontender. HEART: Regular rate and rhythm without murmurs. LUNGS: Clear to auscultation bilaterally. ABDOMEN: Soft, positive bowel sounds, diffusely tender, no organomegaly.no flank tenderness SKIN: No rash, no excessive bruising, petechiae, or purpura. NEUROLOGIC: Cranial nerves II-XII intact without motor/sensory deficit. A/P: 1/ diffuse abdominal pain, hard to local ize etiology, dysphagia seems better now ddx: , neuropathy or related to trulicity Plan: 1/ CT with PO and IV contrast--pre medic ate with pred and benadryl--sent 2/ increase PPI to BID and see if helps better 3/ UA and labs PFSH Medical History HTN (hypertension) Migraine GERD (gastroesophageal reflux disease) Diabetes Surgical History Hx of colonoscopy History of esophagogastroduodenoscopy (EGD) S/P carpal tunnel release Family History Maternal Grandmother Colon cancer Social History Housing: Apartment Alcohol intake: never Patient Tobacco Use Status: Never used Tobacco e-Cigarette/Vaping Use: Never Used Second Hand Smoke Exposure: No Advance Directives Date on File: 04/25/23 service: No Current occupational status: disabled Cognitive needs: No Hearing needs: No Vision needs: No Physical Exam Vital Signs: Last Vital Signs Pulse 77 12/05/23 09:05 BP 147/77 H 12/05/23 09:05 BMI result Body Mass Index 26.9 Assessment & Plan Assessment & Plan (1) Postprandial abdominal bloating: Code(s): R14.0 - Abdominal distension (gaseous) Plan: A/P: 1/ diffuse abdominal pain, hard to localize etiology, dysphagia seems better now ddx: , neuropathy or related to trulicity Plan: 1/ CT with PO and IV contrast--pre medicate with pred and benadryl--sent 2/ increase PPI to BID and see if helps better 3/ UA and labs (2) Diffuse abdominal pain: Code(s): R10.84 - Generalized abdominal pain Plan: A/P: 1/ diffuse abdominal pain, hard to localize etiology, dysphagia seems better now ddx: , neuropathy or related to trulicity Plan: 1/ CT with PO and IV contrast--pre medicate with pred and benadryl--sent 2/ increase PPI to BID and see if helps better 3/ UA and labs (3) Hair thinning: Code(s): L65.9 - Nonscarring hair loss, unspecified Plan: A/P: 1/ diffuse abdominal pain, hard to localize etiology, dysphagia seems better now ddx: , neuropathy or related to trulicity Plan: 1/ CT with PO and IV contrast--pre medicate with pred and benadryl--sent 2/ increase PPI to BID and see if helps better 3/ UA and labs (4) Suprapubic abdominal pain: Code(s): R10.2 - Pelvic and perineal pain Plan: A/P: 1/ diffuse abdominal pain, hard to localize etiology, dysphagia seems better now ddx: , neuropathy or related to trulicity Plan: 1/ CT with PO and IV contrast--pre medicate with pred and benadryl--sent 2/ increase PPI to BID and see if helps better 3/ UA and labs Orders: Orders TSH reflex Free T4 Today L65.9 - Nonscarring hair loss, unspecified, R10.2 - Pelvic and perineal pain, R10.84 - Generalized abdominal pain Vitamin B12 and Folate Today L65.9 - Nonscarring hair loss, unspecified, R10.2 - Pelvic and perineal pain, R10.84 - Generalized abdominal pain Ferritin Today L65.9 - Nonscarring hair loss, unspecified, R10.2 - Pelvic and perineal pain, R10.84 - Generalized abdominal pain C Reactive Protein Today L65.9 - Nonscarring hair loss, unspecified, R10.2 - Pelvic and perineal pain, R10.84 - Generalized abdominal pain UA CC w/rflx Micro + Cult Today L65.9 - Nonscarring hair loss, unspecified, R10.2 - Pelvic and perineal pain, R10.84 - Generalized abdominal pain, R30.0 - Dysuria CT abdomen pelvis w IV con Today R10.84 - Generalized abdominal pain, R14.0 - Abdominal distension (gaseous) Complete Blood Count Auto Diff Today L65.9 - Nonscarring hair loss, unspecified, R10.2 - Pelvic and perineal pain, R10.84 - Generalized abdominal pain Comprehensive Met. Panel Today K75.81 - Nonalcoholic steatohepatitis (BENSON), L65.9 - Nonscarring hair loss, unspecified, R10.2 - Pelvic and perineal pain, R10.84 - Generalized abdominal pain Erythrocyte Sedimentation Rate Today L65.9 - Nonscarring hair loss, unspecified, R10.2 - Pelvic and perineal pain, R10.84 - Generalized abdominal pain Medications: New rabeprazole 20 mg PO BID 120 tabs 2RF diphenhydramine HCl (Allergy (diphenhydramine)) Diphenhydramine 50 mg PO, 1 hour before contrast media injection for CAT. 50 mg (2 x 25 mg) PO DIRECTED 1 tab 0RF Discontinued semaglutide Discontinued Reason: Patient Completed Course 1 mg (0.75 mL) subcut QWEEK 4 weeks 3 mL 1RF E11.65 - Type 2 diabetes mellitus with hyperglycemia Coding Level of Care Code Est Pt Level 4 (69502) Diagnoses Postprandial abdominal bloating R14.0 Diffuse abdominal pain R10.84 Hair thinning L65.9 Suprapubic abdominal pain R10.2
== END 2023-12-05 10:05 | disposition home or self-care (01) ==
PROVIDERS: PCP Physician Assistant; Visit Provider Internal Medicine Gastroenterology
DX: R14.0 Abdominal distension (gaseous) (principal); R10.84 Generalized abdominal pain; L65.9 Nonscarring hair loss, unspecified; R10.2 Pelvic and perineal pain
CPT/HCPCS: 99214

== ENCOUNTER 2024-01-20 14:30 | Outpatient (AMB) | payer OTHER, SELFPAY ==
--- NOTE | 2024-01-20 14:35 | A.OFFPC_ITS ---
Vital Signs 01/20/24 14:36 Height 5 ft 4 in Weight 156 lb BMI 26.8 BP 132/72 Blood Pressure Location Lt brachial Position Sitting Respiration 16 Pulse 74 Pulse Source Pulse Oximeter Pulse Oximetry (%) 97 Oxygen Delivery Method Room Air Intake Visit Reasons: 6 month f/u Air Valve Repairer Required: No Accompanied by: Self / Same As Patient Allergies dicyclomine [From BENTYL] Allergy (Unknown, Verified 01/20/24 14:46) HIVES hydrocodone [HYDROCODONE] Allergy (Unknown, Verified 01/20/24 14:46) UNKNOWN ibuprofen [From MOTRIN] Allergy (Unknown, Verified 01/20/24 14:46) HIVES Iodinated Contrast Media [IV CONTRAST] Allergy (Unknown, Verified 01/20/24 14:46) ITCHING minocycline [MINOCYCLINE] Allergy (Unknown, Verified 01/20/24 14:46) UNK morphine [MORPHINE] Allergy (Unknown, Verified 01/20/24 14:46) UNKNOWN naproxen [NAPROXEN] Allergy (Unknown, Verified 01/20/24 14:46) UNKOWN peanut [PEANUT] Allergy (Unknown, Verified 01/20/24 14:46) HIVES sulfamethoxazole [From BACTRIM] Allergy (Unknown, Verified 01/20/24 14:46) UNKNOWN tramadol [TRAMADOL] Allergy (Unknown, Verified 01/20/24 14:46) UNK trimethoprim [From BACTRIM] Allergy (Unknown, Verified 01/20/24 14:46) UNKNOWN lisinopril Allergy (Verified 01/20/24 14:46) Abdominal Pain metronidazole [From Flagyl] Allergy (Verified 01/20/24 14:46) Hives amitriptyline [AMITRIPTYLINE] Adverse Reaction (Mild, Verified 01/20/24 14:46) HYPER metoclopramide [From REGLAN] Adverse Reaction (Mild, Verified 01/20/24 14:46) HYPER latex [LATEX] Adverse Reaction (Unknown, Verified 01/20/24 14:46) RASH phenylephrine [PHENYLEPHRINE] Adverse Reaction (Unknown, Verified 01/20/24 14:46) UNKNOWN promethazine [From PHENERGAN] Adverse Reaction (Unknown, Verified 01/20/24 14:46) UNK SHELLFISH Allergy (Unknown, Uncoded 01/20/24 14:41) HIVES Medication List - Last Reconciled 01/20/24 by Celso Mathur PA-C atorvastatin 40 mg PO DAILY blood sugar diagnostic (FreeStyle Test strips) As directed blood-glucose meter (FreeStyle [place] Lite kit) As directed diphenhydramine HCl (Allergy (diphenhydramine)) 50 mg (2 x 25 mg) PO DIRECTED epinephrine (EpiPen 2-Rashard) 0.3 mg (0.3 mL) IM Q4H PRN 30 days lancets (FreeStyle Lancets) As directed lorazepam 0.5 mg PO DAILY 5 days losartan 50 mg PO DAILY 90 days metformin ER 1,000 mg (2 x 500 mg) PO DAILY 90 days polyethylene glycol 3350 (HealthyLax) 17 grams PO DAILY PRN rabeprazole 20 mg PO DAILY sucralfate 1 g PO BID triamcinolone acetonide 0.1% 1 appl topical DAILY 15 days Tobacco use date assessed: 01/20/24 Fall risk assessment: No Falls in past year Last assessed Fall Risk: 01/20/24 Dental Screening Dental Screen Date: 01/20/24 Did you have a dental visit in the last 12 months?: Yes Did you have a dental problem in the last 6 months where you did not have access to dental care?: No Was dental information given to patient?: Patient has dentist HPI 6 month f/u HPI Details Patient is a 68-year-old female here today for follow-up visit..? Patient has a past medical history significant for DMII/ HTN, HLD. Unfortunately did not Get fasting labs before today's appointment .. Concern--> she continues to follow gastroenterology for her chronic abdominal pain. She is due for a CT of her abdomen for a more extensive evaluation. She has underwent endoscopy that did show gastritis and was started on new PPI therapy. .. DMII:? Patient continues on metformin 500 b.i.d.. She is stopped Trulicity as she reports losing too much weight. She does report at home blood sugars have been above 200.? PLAN: Will increase her metformin to maximal dose of a 1000 b.i.d.. ? .. HTN :? DOes check her BP at home and report 120s systiolic. Blood pressure today in office acceptable. ,, Hyperlipidemia:? Patient's most recent lipid panel acceptable with LDL below 100. [facility] Medical History HTN (hypertension) Migraine GERD (gastroesophageal reflux disease) Diabetes Surgical History Hx of colonoscopy History of esophagogastroduodenoscopy (EGD) S/P carpal tunnel release Family History Maternal Grandmother Colon cancer Social History Housing: Apartment Alcohol intake: never Patient Tobacco Use Status: Never used Tobacco e-Cigarette/Vaping Use: Never Used Second Hand Smoke Exposure: No Advance Directives Date on File: 04/25/23 service: No Current occupational status: disabled Cognitive needs: No Hearing needs: No Vision needs: No Questionnaire PHQ-9 Over the last 2 weeks, how often have you been bothered by any of the following problems? 1. Little interest or pleasure in doing things: not at all 2. Feeling down, depressed, or hopeless: not at all 3. Trouble falling or staying asleep, or sleeping too much: not at all 4. Feeling tired or having little energy: not at all 5. Poor appetite or overeating: not at all 6. Feeling bad about yourself - or that you are a failure or have let yourself or your family down: not at all 7. Trouble concentrating on things, such as reading the newspaper or watching television: not at all 8. Moving or speaking so slowly that other people could have noticed. Or the opposite - being so fidgety or restless that you have been moving around a lot more than usual: not at all 9. Thoughts that you would be better off or of hurting yourself in some way: not at all Total score: 0 Depression Screening Interpretation: Negative Depression Screening Done: Yes 94758 - PHQ-9 Billing: Yes Source: Developed by Drs. Tawanda Flores, Aparna Potter, Joon Adair and colleagues, with an educational sacha from [facility]. Thrive Questionnaire Date Thrive assessed: 01/20/24 I am a: Patient What is your living situation today?: I have a steady place to live Within the past 12 months, did the food you bought not last and you didn't have the money to get more?: Never true Within the past 12 months, did you worry whether your food would run out before you got money to buy more?: Never true Do you have trouble paying for medicines?: No Do you have trouble getting transportation to medical appointments?: No Do you have trouble paying your heating and electricity bill?: No Do you have trouble taking care of your child, family member or friend?: No Do you have trouble with day-to-day activities such as bathing, preparing meals, shopping, managing finances, etc.?: No Are you currently unemployed and looking for a job?: No Are you interested in more education?: No Please select the resources that you would like help with: None Currently or been in a relationship where the following occur: no concerns reported THRIVE Score: 0 AUDIT C Alcohol Use Questionnaire (AUDIT-C) 1. How often do you have a drink containing alcohol?: Never 2. How many drinks containing alcohol do you have on a typical day when you are drinking?: 1 or 2 3. How often do you have six or more drinks on one occasion?: Never Total Score: 0 CAMILLE-7 AMB Questionnaire CAMILLE-7 Date CAMILLE - 7 assessed: 01/20/24 Feeling nervous, anxious, or on edge: 0 = Not at all Not being able to stop or control worryin = Not at all Worrying too much about different things: 0 = Not at all Trouble relaxin = Not at all Being so restless that it is hard to sit still: 0 = Not at all Becoming easily annoyed or irritable: 0 = Not at all Feeling afraid as if something awful might happen: 0 = Not at all Total CAMILLE-7 score (0-4 normal; 5-9 mild; 10-14 moderate; 15-21 severe): 0 Source: Developed by Drs. Tawanda Flores, Aparna Potter, Joon Adair and colleagues, with an educational sacha from [facility]. CAMILLE-7 Assessment Billing CAMILLE-7 Assessment Tool: CAMILLE-7 Assessment 11907 Review of Systems Const Denies headache(s) Eyes Denies loss of vision ENT Denies vertigo, Denies dizziness, Denies headache(s) and Denies sore throat Card Denies chest pain, Denies leg edema and Denies lightheadedness Resp Denies cough, Denies hemoptysis and Denies wheezing GI Denies abdominal pain, Denies melena, Denies constipation, Denies diarrhea and Denies vomiting Denies urinary frequency, Denies dysuria and Denies urinary urgency Musc Denies arthralgias, Denies joint swelling, Denies numbness and Denies tingling Neuro Denies Abnormal speech present, Denies behavioral changes, Denies vertigo, Denies dizziness, Denies headache(s), Denies loss of vision, Denies memory loss, Denies numbness and Denies tingling Psych Denies anxiety, Denies behavioral changes, Denies depression, Denies memory loss and Denies panic attacks Pawan/Lymph Denies easy bleeding and Denies easy bruising Aller/Immun Denies wheezing Physical exam (Primary Care) Vital Signs: Last Vital Signs Pulse 74 01/20/24 14:36 Resp 16 01/20/24 14:36 BP 132/72 01/20/24 14:36 Pulse Ox 97 01/20/24 14:36 Oxygen Delivery Method Room Air 01/20/24 14:36 BMI result Body Mass Index 26.8 Tobacco/Smoking Status: Tobacco use Status Tobacco use date assessed 01/20/24 01/20/24 14:42 Patient Tobacco Use Status Never used Tobacco 01/20/24 14:36 e-Cigarette/Vaping Use Never Used 01/20/24 14:36 PHQ-9: PHQ-9 Score PHQ-9: Total score 0 01/20/24 14:49 Depression Screening Interpretation: Negative Thrive Assessment: Date of Thrive Assessment Date Thrive assessed 01/20/24 01/20/24 14:42 Currently or been in a relationship where the following occur: no concerns reported Const General: healthy appearing, no acute distress, alert and awake Nutritional Appearance: well nourished Orientation/consciousness: oriented to person, oriented to place and oriented to time HENMT Ears: TM's normal bilaterally General nose exam: Normal nasal mucous membranes and turbinates present Eyes Conjunctivae: conjunctivae normal Sclerae: sclerae normal Pupils: Equal, round and reactive pupils present Neck Neck: Yes no lymphadenopathy and Yes no JVD Thyroid: Thyroid normal Carotids: no bruits Resp Effort & Inspection: normal respiratory effort and not tachypneic Auscultation: no crackles, no rales, no rhonchi and no wheezes Cardio Rate: regular rate Rhythm: regular rhythm Heart sounds: no murmurs and normal S1 and S2 GI Palpation (GI): Soft to palpation, nontender, no hepatomegaly and no splenomegaly Auscultation: normal bowel sounds Skin General skin exam: no rashes or lesions noted and dry skin Neuro General: oriented to person, oriented to place and oriented to time Cranial nerves: Yes Equal, round and reactive pupils present Speech: No Abnormal speech present Gait exam (Neuro): Normal gait present Motor exam (neuro): no tremor noted Extrem Right upper extremity: full ROM Left upper extremity: full ROM Right lower extremity: full ROM; no edema Left lower extremity: full ROM; no edema Psych Mental Status: mental status grossly normal Speech and movement: Normal speech and movement present Affect: normal affect Attitude: cooperative Thought process: Normal thought process present Assessment and Plan Assessment & Plan (1) DMII (diabetes mellitus, type 2): Code(s): E11.9 - Type 2 diabetes mellitus without complications Qualifiers: Diabetes mellitus complication status: with hyperglycemia Diabetes mellitus mcc insulin use: without terminal press operator use Qualified Code(s): E11.65 - Type 2 diabetes mellitus with hyperglycemia Plan: Patient reports hyperglycemia at home on her glucometer. Was on Trulicity which was helping her hyperglycemia though had too much weight loss for patient. She has stopped taking Trulicity Will increase her metformin to maximal dose of a 1000 b.i.d.. Goal A1c to be below 7.0 (2) HTN (hypertension): Code(s): I10 - Essential (primary) hypertension Qualifiers: Hypertension type: primary hypertension Qualified Code(s): I10 - Essential (primary) hypertension Plan: Patient's blood pressure acceptable today in office. Will continue her current dose of anti hyper pensive medication with goal blood pressure remain below 140/90 (3) HLD (hyperlipidemia): Code(s): E78.5 - Hyperlipidemia, unspecified Qualifiers: Hyperlipidemia type: mixed hyperlipidemia Qualified Code(s): E78.2 - Mixed hyperlipidemia Plan: Most recent lipid panel acceptable. Will continue statin therapy at current dose. Goal LDL to remain below 100. (4) GERD (gastroesophageal reflux disease): Code(s): K21.9 - Gastro-esophageal reflux disease without esophagitis Qualifiers: Esophagitis bleeding: without hemorrhage Esophagitis presence: with esophagitis Qualified Code(s): K21.00 - Gastro-esophageal reflux disease with esophagitis, without bleeding Plan: Patient followed by gastroenterology. Continues on PPI therapy with decent affect. Continues to have chronic abdominal pain and is due for CT of her abdomen for further evaluation. Orders: Orders Hemoglobin A1c 01/20/24 E11.65 - Type 2 diabetes mellitus with hyperglycemia Medications: Changed From metformin ER 1,000 mg (2 x 500 mg) PO DAILY 90 days 180 tabs 1RF E11.65 - Type 2 diabetes mellitus with hyperglycemia To metformin ER 1,000 mg (2 x 500 mg) PO BID 90 days 360 tabs 1RF E11.65 - Type 2 diabetes mellitus with hyperglycemia Coding Level of Care Code Est Pt Level 4 (45531) Diagnoses Type 2 diabetes mellitus with hyperglycemia, without long-term current use of insulin E11.65 Diabetes mellitus complication status: with hyperglycemia Diabetes mellitus terminal press operator insulin use: without mcc use Primary hypertension I10 Hypertension type: primary hypertension Mixed hyperlipidemia E78.2 Hyperlipidemia type: mixed hyperlipidemia Gastroesophageal reflux disease with esophagitis without hemorrhage K21.00 Esophagitis bleeding: without hemorrhage Esophagitis presence: with esophagitis Additional Codes CAMILLE-7 Assessment Billing - CAMILLE-7 Assessment Tool: CAMILLE-7 Assessment [id number] ([id number])
[2024-01-20 14:36] VITALS: BP 132/72; PULSE 74; RESP 16; O2SAT 97; BMI 26.8
== END 2024-01-20 15:07 | disposition home or self-care (01) ==
PROVIDERS: PCP Physician Assistant; Visit Provider Physician Assistant
DX: E11.65 Type 2 diabetes mellitus with hyperglycemia (principal); I10 Essential (primary) hypertension; E78.2 Mixed hyperlipidemia; K21.00 Gastro-esophageal reflux disease with esophagitis, without bleeding
CPT/HCPCS: 99214

== ENCOUNTER 2024-02-03 13:29 | Outpatient (REF) | payer OTHER, SELFPAY ==
--- NOTE | ~2024-02-03 | CT_ITS ---
EXAMINATION: CT ABDOMEN AND PELVIS WITH CONTRAST CLINICAL INFORMATION: Abdominal gaseous distention. COMPARISON: CT abdomen pelvis 03/30/2023 TECHNIQUE: Multidetector volumetric images were obtained from the superior aspect of the liver through the pubic symphysis following administration 85 mL of Omnipaque 350 intravenous contrast. Sagittal and coronal reformatted images were obtained on the technologist's workstation. Oral contrast: No This CT examination was performed using dose optimization techniques as appropriate, variously including the following: *Automated exposure control *Adjustment of mA and/or kV according to patient size (this includes techniques or standardized protocols for targeted exams where dose is matched to indication/reason for exam; i.e. extremities or head) *Use of iterative reconstruction technique DLP: 356 mGy-cm FINDINGS: LUNG BASES: Some minimal unchanged traction bronchiectasis is seen at the lung bases. The visualized lung bases are otherwise unremarkable. LIVER, GALLBLADDER, AND BILIARY TREE: The liver is normal in size, shape, and attenuation. No focal hepatic lesion or biliary ductal dilatation is present. The gallbladder is unremarkable with no evidence of radiopaque gallstones, gallbladder wall thickening, or obvious pericholecystic inflammatory changes. PANCREAS: Unremarkable. SPLEEN: Unremarkable. ADRENAL GLANDS: Unremarkable. KIDNEYS AND URETERS: The kidneys are normal in size, shape, and attenuation. Bilateral Bosniak class I benign simple cysts are again seen, left greater than right. These need no additional imaging or follow-up. No solid renal masses are detected. No hydronephrosis, hydroureter, or calculi seen. No perinephric stranding. BLADDER: Poorly filled but unremarkable. GASTROINTESTINAL TRACT: Colonic diverticula are present most prominent in the sigmoid. No evidence of diverticulitis. The small and large bowel are otherwise unremarkable. The appendix is unremarkable. ABDOMINAL WALL: Small unchanged left inguinal hernia containing only fat. LYMPH NODES: No retroperitoneal lymphadenopathy. VASCULAR: Calcific plaque in the infrarenal aorta and common iliac arteries without aneurysm. PELVIC VISCERA: The uterus and adnexa are unremarkable. No ascites is present. OSSEOUS STRUCTURES: Mild degenerative changes present spine. A bone island is again noted in L3 vertebral body. No bony destructive lesions. CT/CT abdomen pelvis w IV con IMPRESSION: A cause for the patient's abdominal distention has not been found. Incidental findings as described above. Fleischner guidelines were followed
[2024-02-03] MEDS: iohexoL 350 MG/ML 100 ML INFUS..BTL 85 ML IV (17:40)
[2024-02-03] MEDS: Barium Sulfate Oral (Vanilla) 450 ML ORAL.SUSP 900 ML PO (17:43)
[2024-02-04 16:44] LABS: Creatinine POC 0.8 mg/dL (0.5-1.4); GFR POC > 60
== END 2024-02-03 13:30 | disposition home or self-care (01) ==
LOC: HO.CT 13:29
PROVIDERS: PCP Physician Assistant; Visit Provider Internal Medicine Gastroenterology
DX: R14.0 Abdominal distension (gaseous) (principal); R10.84 Generalized abdominal pain
CPT/HCPCS: 74177; 82565; Q9967

== ENCOUNTER 2024-04-09 10:21 | Outpatient (AMB) | payer OTHER, SELFPAY ==
--- NOTE | 2024-04-09 10:22 | MHC.OFFVIS ---
Vital Signs 04/09/24 10:23 Height 5 ft 4 in Weight 160 lb 14.999 oz BMI 27.6 BP 118/76 Blood Pressure Location Lt brachial Position Sitting Pulse 84 Intake Visit Reasons: 4 month follow up Intake Note: Roslyn presents in the office as a 4 month follow up. CC: She states that she is having pains in the stomach. She is allergic to gluten - sometimes constipation and diarrhea. Teleprinter Installer Required: No Allergies dicyclomine [From BENTYL] Allergy (Unknown, Verified 04/09/24 10:24) HIVES hydrocodone [HYDROCODONE] Allergy (Unknown, Verified 04/09/24 10:24) UNKNOWN ibuprofen [From MOTRIN] Allergy (Unknown, Verified 04/09/24 10:24) HIVES Iodinated Contrast Media [IV CONTRAST] Allergy (Unknown, Verified 04/09/24 10:24) ITCHING minocycline [MINOCYCLINE] Allergy (Unknown, Verified 04/09/24 10:24) UNK morphine [MORPHINE] Allergy (Unknown, Verified 04/09/24 10:24) UNKNOWN naproxen [NAPROXEN] Allergy (Unknown, Verified 04/09/24 10:24) UNKOWN peanut [PEANUT] Allergy (Unknown, Verified 04/09/24 10:24) HIVES sulfamethoxazole [From BACTRIM] Allergy (Unknown, Verified 04/09/24 10:24) UNKNOWN tramadol [TRAMADOL] Allergy (Unknown, Verified 04/09/24 10:24) UNK trimethoprim [From BACTRIM] Allergy (Unknown, Verified 04/09/24 10:24) UNKNOWN lisinopril Allergy (Verified 04/09/24 10:24) Abdominal Pain metronidazole [From Flagyl] Allergy (Verified 04/09/24 10:24) Hives amitriptyline [AMITRIPTYLINE] Adverse Reaction (Mild, Verified 04/09/24 10:24) HYPER metoclopramide [From REGLAN] Adverse Reaction (Mild, Verified 04/09/24 10:24) HYPER latex [LATEX] Adverse Reaction (Unknown, Verified 04/09/24 10:24) RASH phenylephrine [PHENYLEPHRINE] Adverse Reaction (Unknown, Verified 04/09/24 10:24) UNKNOWN promethazine [From PHENERGAN] Adverse Reaction (Unknown, Verified 04/09/24 10:24) UNK SHELLFISH Allergy (Unknown, Uncoded 04/09/24 10:24) HIVES HPI HPI 4 month follow up: Details: 68 yr old f here for f/u RECAP: She has had 15 yr hx of abdominal pain in epigastric area no nausea or vomiting sometimes worse with food she is not taking aspirin or nsaids she has heartburn unsure if nexium helps or not she has alternating diarrhea and constipation for many years she has trouble swallowing usu food or tabs just last few days, she had vocal cord surgery 5 yrs ago no cough, fever, no chest pain, no SOB she is on metfromin and trulicity for DM EGD 09/25: lax LES gastritis bile acid reflux 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 VITAL SIGNS:see workflow HEENT: Nonicteric sclerae, PERRLA, EOMI. Oropharynx clear. Moist mucous membranes. Conjunctivae appear well perfused. No thyroid mass. CHEST: Chest wall is nontender. HEART: Regular rate and rhythm without murmurs. LUNGS: Clear to auscultation bilaterally. ABDOMEN: Soft, positive bowel sounds, diffusely tender, no organomegaly.no flank tenderness SKIN: No rash, no excessive bruising, petechiae, or purpura. NEUROLOGIC: Cranial nerves II-XII intact without motor/sensory deficit. A/P: 1/ diffuse abdominal pain, hard to localize etiology, dysphagia seems better now ddx: , neuropathy or related to trulicity--may be from diverticulosis or colonic lesion Plan: 1/ colonoscopy for further assessment, and use suprep 2/ advised try ibGard 3/ high fiber diet and colace PFSH Medical History HTN (hypertension) Migraine GERD (gastroesophageal reflux disease) Diabetes Surgical History Hx of colonoscopy History of esophagogastroduodenoscopy (EGD) S/P carpal tunnel release Family History Maternal Grandmother Colon cancer Social History Housing: Apartment Alcohol intake: never Patient Tobacco Use Status: Never used Tobacco e-Cigarette/Vaping Use: Never Used Second Hand Smoke Exposure: No Advance Directives Date on File: 04/25/23 service: No Current occupational status: disabled Cognitive needs: No Hearing needs: No Vision needs: No Physical Exam Vital Signs: BMI result Body Mass Index 27.6 Assessment & Plan Assessment & Plan (1) Diffuse abdominal pain: Code(s): R10.84 - Generalized abdominal pain Category: Medical Plan: see above Medications: New sodium,potassium,mag sulfates 17.5-3.13-1.6 gram (Suprep Bowel Prep Kit) DILUTE; drink 1/2 at 6-8 pm and half at 11 PM- 1AM 354 mL 0RF Coding Level of Care Code Est Pt Level 4 (78158) Diagnoses Diffuse abdominal pain R10.84
[2024-04-09 10:23] VITALS: BP 118/76; PULSE 84; BMI 27.6
== END 2024-04-09 11:08 | disposition home or self-care (01) ==
PROVIDERS: PCP Physician Assistant; Visit Provider Internal Medicine Gastroenterology
DX: R10.84 Generalized abdominal pain (principal)
CPT/HCPCS: 99214

== ENCOUNTER → 2024-04-09 10:21 | Outpatient (BNVA) | payer OTHER, SELFPAY | PROVIDERS: PCP Physician Assistant; Visit Provider Internal Medicine Gastroenterology | DX: R10.84 Generalized abdominal pain (principal) | CPT/HCPCS: 99212 ==

== ENCOUNTER 2024-04-19 08:08 | Outpatient (REF) | payer OTHER, SELFPAY ==
[2024-04-19 09:13] LABS: Estimated Average Glucose 197 mg/dL; Hemoglobin A1c % 8.5 % (<6.0)
[2024-04-19 09:14] LABS: Hematocrit 36.8 % (37.0-47.0); Mean Corpuscular HGB Conc 32.6 g/dl (31.0-35.0); Mean Corpuscular Hemoglobin 27.8 pg (27.0-33.0); Mean Corpuscular Volume 85.2 fL (80.0-98.0); PLT CLUMP 1; Red Blood Count 4.32 X10*6/uL (4.20-5.50); Red Cell Distribution Width 13.1 % (11.0-16.0); White Blood Count 6.7 X10*3/uL (4.8-10.8)
[2024-04-19 09:25] LABS: Alanine Aminotransferase 21 U/L (0-31); Albumin Level 4.4 g/dL (3.5-5.0); Alkaline Phosphatase 51 U/L (39-117); Anion Gap 16 (12-20); Aspartate Amino Transferase 19 U/L (5-31); Bilirubin Total 0.6 mg/dL (0.0-1.0); Blood Urea Nitrogen 18 mg/dL (9-16); Calcium 9.7 mg/dL (8.4-10.2); Carbon Dioxide 26 mmol/L (22-29); Chloride 103 mmol/L (96-108); Cholesterol 143 mg/dL (<200); Estimated Glomerular Filt Rate 58; Glucose Fasting 204 mg/dL (60-99); HDL Cholesterol 51 mg/dL (>40); LDL Cholesterol Calculated 72 mg/dL (<100); Potassium 4.3 mmol/L (3.3-5.1); Sodium 141 mmol/L (135-145); Total Protein 7.8 g/dL (6.5-8.0); Triglycerides 101 mg/dL (<150)
[2024-04-19 09:34] LABS: TSH reflex Free T4 2.06 uIU/mL (0.32-4.0)
[2024-04-19 09:44] LABS: Mean Platelet Volume 11.1 fL (9.4-12.3); Platelet Count 191 X10*3/uL (160-400)
[2024-04-19 09:55] LABS: Creatinine Urine 63.22 mg/dL; Microalbum/Creatinine Ratio Ur 22.1 ug/mg cr (<30)
== END 2024-04-19 08:09 | disposition home or self-care (01) ==
LOC: HO.LAB 08:08
PROVIDERS: PCP Physician Assistant; Visit Provider Physician Assistant
DX: E11.65 Type 2 diabetes mellitus with hyperglycemia (principal); L65.9 Nonscarring hair loss, unspecified; I10 Essential (primary) hypertension
CPT/HCPCS: 36415; 80053; 80061; 82043; 82570; 83036; 84443; 85027

== ENCOUNTER 2024-06-12 14:05 | Emergency (ER) | payer OTHER, SELFPAY ==
--- NOTE | ~2024-06-12 | XR_ITS ---
EXAMINATION: XR CHEST, 2 VIEWS CLINICAL INFORMATION: Productive cough COMPARISON: 12/21/2022 TECHNIQUE: PA and lateral views of the chest were obtained. FINDINGS: Lungs are clear. No consolidation, pneumothorax, or pleural effusion. Cardiac and mediastinal contours are normal. Pulmonary vasculature is unremarkable. Trachea is midline. Calcific tendinitis of the right humeral head. Osteoarthritis is present in the acromioclavicular and glenohumeral joints. XR/XR chest 2V IMPRESSION: No acute cardiopulmonary findings.
[2024-06-12 14:18] VITALS: BP 120/78; PULSE 80; RESP 16; TEMP 36; O2SAT 98; BMI 27.6
--- NOTE | 2024-06-12 14:18 | ED.GENADULT ---
HPI - General Adult General Chief complaint: Upper Respiratory Symptoms Stated complaint: cough Time Seen by Provider: 06/12/24 15:35 Source: patient Mode of arrival: ambulatory Limitations: no limitations History of Present Illness HPI narrative: Patient is a 68-year-old female who presents emergency department for evaluation of upper respiratory symptoms including a productive cough with yellow phlegm, sneezing nasal congestion, sore throat described as scratchiness, generalized body aches, frontal headache and pressure. Denies any known sick contacts. Symptom onset was 4 days ago. Denies associated dizziness, vision changes, neck pain, neck stiffness, chest pain, shortness of breath, numbness or tingling of the extremities. Related Data Previous Rx's ?Medication ?Instructions ?Recorded triamcinolone acetonide 0.1 % 1 appl topical DAILY 15 days #30 04/24/22 topical cream grams blood sugar diagnostic (FreeStyle #100 ea 02/27/23 Test strips) blood-glucose meter (FreeStyle #1 ea 02/27/23 [place] Lite kit) lancets 28 gauge (FreeStyle #100 ea 03/15/23 Lancets) epinephrine 0.3 mg/0.3 mL 0.3 mg (0.3 mL) IM Q4H PRN 03/25/23 injection, auto-injector (EpiPen anaphylaxis 30 days #2 ea 2-Rashard) polyethylene glycol 3350 17 gram 17 g PO DAILY PRN for constipation 12/03/23 oral powder packet (HealthyLax) #30 packets diphenhydramine HCl 25 mg tablet 50 mg (2 x 25 mg) PO DIRECTED 12/05/23 (Allergy (diphenhydramine)) #1 tab rabeprazole 20 mg tablet,delayed 20 mg PO DAILY #90 tabs 12/10/23 release atorvastatin 40 mg tablet 40 mg PO DAILY #90 tabs 12/23/23 metformin 500 mg tablet,extended 1,000 mg (2 x 500 mg) PO BID 90 01/20/24 release 24 hr days #360 tabs sucralfate 1 gram tablet 1 g PO BID #180 tabs 03/08/24 losartan 50 mg tablet 50 mg PO DAILY 90 days #90 tabs 03/25/24 sodium,potassium,mag sulfates 17.5 See Rx Instructions PO .COMPLEX 04/09/24 gram-3.13 gram-1.6 gram oral soln #354 mL (Suprep Bowel Prep Kit) lorazepam 0.5 mg tablet 0.5 mg PO DAILY anxiety 5 days #5 05/17/24 tabs amoxicillin 875 mg-potassium 1 tab PO BID #14 tabs 06/12/24 clavulanate 125 mg tablet Allergies Allergy/AdvReac Type Severity Reaction Status Date / Time dicyclomine [From BENTYL] Allergy Unknown HIVES Verified 06/12/24 14:19 hydrocodone [HYDROCODONE] Allergy Unknown UNKNOWN Verified 06/12/24 14:19 ibuprofen [From MOTRIN] Allergy Unknown HIVES Verified 06/12/24 14:19 Iodinated Contrast Media Allergy Unknown ITCHING Verified 06/12/24 14:19 [IV CONTRAST] minocycline [MINOCYCLINE] Allergy Unknown UNK Verified 06/12/24 14:19 morphine [MORPHINE] Allergy Unknown UNKNOWN Verified 06/12/24 14:19 naproxen [NAPROXEN] Allergy Unknown UNKOWN Verified 06/12/24 14:19 peanut [PEANUT] Allergy Unknown HIVES Verified 06/12/24 14:19 sulfamethoxazole Allergy Unknown UNKNOWN Verified 06/12/24 14:19 [From BACTRIM] tramadol [TRAMADOL] Allergy Unknown UNK Verified 06/12/24 14:19 trimethoprim [From BACTRIM] Allergy Unknown UNKNOWN Verified 06/12/24 14:19 lisinopril Allergy Abdominal Verified 06/12/24 14:19 Pain metronidazole [From Flagyl] Allergy Hives Verified 06/12/24 14:19 amitriptyline [AMITRIPTYLINE] AdvReac Mild HYPER Verified 06/12/24 14:19 metoclopramide [From REGLAN] AdvReac Mild HYPER Verified 06/12/24 14:19 latex [LATEX] AdvReac Unknown RASH Verified 06/12/24 14:19 phenylephrine [PHENYLEPHRINE] AdvReac Unknown UNKNOWN Verified 06/12/24 14:19 promethazine [From PHENERGAN] AdvReac Unknown UNK Verified 06/12/24 14:19 SHELLFISH Allergy Unknown HIVES Uncoded 04/09/24 10:24 Review of Systems Review of Systems: Yes all other systems are reviewed and are negative PMFSH Past Medical History Attestation statement: The following information was validated with the patient. Source: old records reviewed Medical History HTN (hypertension) Migraine GERD (gastroesophageal reflux disease) Diabetes Surgical History Hx of colonoscopy History of esophagogastroduodenoscopy (EGD) S/P carpal tunnel release Family History Family History Maternal Grandmother Colon cancer Social History Social History Housing: Apartment Alcohol intake: never Patient Tobacco Use Status: Never used Tobacco e-Cigarette/Vaping Use: Never Used Second Hand Smoke Exposure: No Advance Directives: No Advance Directives Information Provided: No Advance Directives Date on File: 04/25/23 service: No Current occupational status: disabled Cognitive needs: No Hearing needs: No Vision needs: No Physical Exam ED Vital Signs: Vital Signs - 24 hr 06/12/24 14:18 06/12/24 15:53 Temperature 96.8 F 98.3 F Pulse Rate 80 80 Respiratory Rate 16 16 Blood Pressure 120/78 129/71 Pulse Oximetry 98 96 Oxygen Delivery Method Room Air Room Air BMI result Body Mass Index 27.6 Appearance: Alert.?Oriented to person, place and time. No acute distress.?Normal affect. Eyes: Pupils equal, round and reactive to light.? ENT: Pharynx normal.??TM normal bilaterally. Frontal sinus tenderness upon palpation. Neck: Normal inspection.? Neck supple.??No cervical adenopathy. CVS: Heart sounds normal. Normal heart rate and rhythm.? Pulses normal.?? Respiratory: No respiratory distress.? Lung sounds clear to auscultation bilaterally?? Abdomen: Soft and non-tender. Normoactive bowel sounds. Skin: Skin warm and dry.? Normal skin color.? ? Extremities: No lower extremity edema.? No calf ttp? Neuro: Moves all extremities spontaneously. Sensation intact bilaterally. . Ambulates with normal steady gait. Course Course Course Narrative: This is a rapid medical exam performed by Mason Arriaga NP: Additional HPI, ROS, PE not included below will be deferred to primary provider. Patient is a 68-year-old female presenting with 4-5 days of cough, sneezing, sore throat and subjective fevers. Plan: viral and strep swabs cxr Medical Decision Making Medical Decision Making [facility] Narrative: Patient is a 68-year-old female with past medical history of hypertension, diabetes, migraine headaches, GERD, presenting for evaluation of upper respiratory symptoms. COVID-19 /influenza/RSV testing negative. Strep a testing negative. Examination not consistent with RPA/CATEGORY DEVELOPMENT ANALYST. At this time history and physical exam not consistent with ACS/PE/pneumonia. Well-appearing, nontoxic, afebrile, no tachycardia or tachypnea/hypoxia. Speaking clear full sentences, ambulatory with steady gait. Discussed conservative treatment including rest, hydration, Tylenol/ibuprofen as needed for fever and body aches, saline nasal spray, humidifier, rfbq-[id number] cold medication. Advised to follow-up with primary care provider as needed, discussed reasons to return back to the emergency department. All questions were answered. Patient discharged home in stable condition. Differential Diagnosis Differential Diagnoses: The differential diagnosis associated with the presentation includes ( See narrative above) Admission/Observation Consideration of admission/observation: Escalation of care including admission/observation considered ( see narrative above) Lab Data [facility] Lab Attestation statement: I reviewed the patient's lab results. ( see narrative above) Labs: Lab Results 06/12/24 Range/Units 14:37 Influenza Type A (PCR) NEGATIVE (Negative) Influenza Type B (PCR) NEGATIVE (Negative) RSV RNA Qual (PCR) NEGATIVE (Negative) SARS-CoV-2 RNA (RT-PCR) NEGATIVE (Negative) S. pyogenes GrpA MONICA Negative (Negative) Independent Interpretation I performed an independent interpretation of an: Plain X-Ray (No acute infiltrate or consolidation) Radiology Impression Discussion of test interpretation with radiology: I have reviewed the radiologist's reading. Radiologist Impression: XR/XR chest 2V IMPRESSION: Normal chest radiographs. External Record Review External record reviewed: Outpatient record Prescription Management I considered prescription management with: Pain Medication ( acetaminophen/ibuprofen) Discharge Plan Discharge Clinical Impression: Acute frontal sinusitis Patient Disposition: Home, Self-Care Instructions: Sinusitis (ED) Additional Instructions: Testing today for COVID-19, flu, and strep were negative. Chest x-ray does not show any sign of concerning illness or pneumonia. Complete the entire course of antibiotics for your sinus infection. Be sure to rest, stay well hydrated drinking plenty of fluids, eat small frequent meals. Tylenol/ibuprofen can be used as needed for fever/pain. Idyc-wys-esiahpq cold medications may be helpful as well for symptoms. Saline nasal spray, humidifier may be helpful for nasal congestion. You may return to the emergency department with any new or worsening symptoms or concerns. Follow-up with your primary care provider as needed. Prescriptions: New amoxicillin-pot clavulanate 875-125 mg tablet 1 tab PO BID Qty: 14 0RF No Action (DME) blood-glucose meter [FreeStyle [place] Lite] Kit See Rx Instructions .Route Qty: 1 0RF Rx Instructions: As directed (DME) FreeStyle Test Strip See Rx Instructions .Route Qty: 100 1RF Rx Instructions: As directed (DME) lancets [FreeStyle Lancets] 28 gauge misc See Rx Instructions .ROUTE .MEDSUPPLY Qty: 100 3RF Rx Instructions: As directed polyethylene glycol 3350 [HealthyLax] 17 gram powder in packet 17 g PO DAILY PRN (Reason: for constipation) Qty: 30 2RF rabeprazole 20 mg tablet,delayed release (DR/EC) 20 mg PO DAILY Qty: 90 1RF atorvastatin 40 mg tablet 40 mg PO DAILY Qty: 90 1RF sucralfate 1 gram tablet 1 g PO BID Qty: 180 0RF losartan 50 mg tablet 50 mg PO DAILY 90 Days Qty: 90 1RF lorazepam 0.5 mg tablet 0.5 mg PO DAILY 5 Days Qty: 5 0RF triamcinolone acetonide 0.1 % cream 1 appl topical DAILY 15 Days Qty: 30 1RF epinephrine [EpiPen 2-Rashard] 0.3 mg/0.3 mL auto-injector 0.3 mg IM Q4H PRN (Reason: anaphylaxis) 30 Days Qty: 2 0RF metformin 500 mg tablet extended release 24 hr 1,000 mg PO BID 90 Days Qty: 360 1RF diphenhydramine HCl [Allergy (diphenhydramine)] 25 mg tablet 50 mg PO DIRECTED Qty: 1 0RF Rx Instructions: Diphenhydramine 50 mg PO, 1 hour before contrast media injection for CAT. sodium,potassium,mag sulfates [Suprep Bowel Prep Kit] 17.5-3.13-1.6 gram recon soln See Rx Instructions PO .COMPLEX Qty: 354 0RF Rx Instructions: DILUTE; drink 1/2 at 6-8 pm and half at 11 PM- 1AM Referrals: Celso Mathur PA-C [Primary Care Provider] - Print Language: Italian
[2024-06-12 15:24] LABS: Influenza A PCR NEGATIVE (Negative); Influenza B PCR NEGATIVE (Negative); Resp Syncy Virus RNA Qual PCR NEGATIVE (Negative); SARS COV2 PCR INHOUSE NEGATIVE (Negative)
[2024-06-12 15:27] LABS: IDNOW Serial# 08D9AD1C; Strep A Nucleic Acid Negative (Negative)
--- OUTSIDE RECORDS SUMMARY | 2024-06-12 15:41 | XMS_ITS | Continuity of Care Document ---
Author Organization [facility] Adult Address [address] [place] [address]- Care Team Providers Care Journeyman Plumber Name Role Phone Jazmin Rangel NP Primary Care Physician Encounter [facility] [place] Date(s): 05/23/21 - 05/30/21 [facility] [address] [place] [address]- Attending Physician: Jazmin Rangel NP Allergies, Adverse Reactions, Alerts Substance Reaction Severity Status ibuprofen hives Active naproxen Active minocycline Active amitriptyline Active metoclopramide Active morphine Active phenylephrine Active dicyclomine Active sulfa drugs Active shellfish Active Bentyl Active Motrin Active Phenergan Active Bactrim Active Reglan Active Contrast Dye Active Latex Active Milk Products Active traMADol Active Immunizations Given and Recorded Vaccine Date Status Refusal Reason SARS-CoV-2 (COVID-19) Ad26 vaccine 01/24/21 Record ed Influenza Virus Vaccine (oldterm) 08/17/20 Recorde d influenza virus vaccine, inactivated 07/25/20 Angel rded influenza virus vaccine, inactivated 07/28/19 Angel rded influenza virus vaccine, inactivated 08/19/18 Angel rded influenza virus vaccine, inactivated 07/18/16 Angel rded pneumococcal 13-valent vaccine 09/17/19 Recorded pneumococcal 23-valent vaccine 1 09/17/19 Recorded pneumococcal 23-valent vaccine 09/17/19 Recorded pneumococcal 23-valent vaccine 01/01/16 Recorded tetanus-diphtheria toxoids (Td) 04/25/13 Recorded Diphth-Tetanus Toxoids Adsorbed(oldterm) 2 01/18/08 Given 1Result Comment: wrong vaccine 2Admin Note: vis given Medications Aspirin Enteric Coated 81 mg oral delayed release tablet 1 tablet = 81 mg, By Mouth, Daily, # 30 tablet, 1 Refills, Maintenance, 05/04/21 14:12:00 EDT, EC Tablet, [facility]/pharm[facility] #[id number], Partial fill upon patient request if the prescription is for a schedule II opioid drug., 160.2, cm, 04/06/21 15:33:00 EDT, He... Start Date: 05/04/21 Status: Ordered atorvastatin 40 mg oral tablet 0 Refills, Maintenance, 02/20/21 12:40:00 EDT, Partial fill upon patient request if the prescription is for a schedule II opioid drug. Start Date: 02/20/21 Status: Ordered biotin 1000 mcg oral tablet 1 tablet = 1,000 mcg, By Mouth, Daily, 0 Refills, Maintenance, 05/23/21 13:44:00 EDT, Partial fill upon patient request if the prescription is for a schedule II opioid drug. Start Date: 05/23/21 Status: Ordered EPINEPHrine 0.3 mg injectable solution 0 Refills, Maintenance, 02/20/21 12:40:00 EDT, Partial fill upon patient request if the prescription is for a schedule II opioid drug. Start Date: 02/20/21 Status: Ordered esomeprazole 40 mg oral enteric coated capsule 0 Refills, Maintenance, 02/20/21 12:40:00 EDT, Partial fill upon patient request if the prescription is for a schedule II opioid drug. Start Date: 02/20/21 Status: Ordered losartan 25 mg oral tablet 0 Refills, Maintenance, 02/20/21 12:40:00 EDT, Partial fill upon patient request if the prescription is for a schedule II opioid drug. Start Date: 02/20/21 Status: Ordered MetFORMIN (Eqv-Glucophage XR) 500 mg oral tablet, extended release 0 Refills, Maintenance, 02/20/21 12:40:00 EDT, Partial fill upon patient request if the prescription is for a schedule II opioid drug. Start Date: 02/20/21 Status: Ordered polyethylene glycol 3350 oral powder for reconstitution 0 Refills, Maintenance, 02/20/21 12:40:00 EDT, Partial fill upon patient request if the prescription is for a schedule II opioid drug. Start Date: 02/20/21 Status: Ordered Tradjenta 5 mg oral tablet 0 Refills, Maintenance, 02/20/21 12:40:00 EDT, Partial fill upon patient request if the prescription is for a schedule II opioid drug. Start Date: 02/20/21 Status: Ordered triamcinolone 0.1% topical ointment 1 application, Topically, 2 times a day, for 14 days, Apply to affected skin, # 60 Gm, 0 Refills, Acute 06/06/21 13:55:00 EDT, 05/23/21 13:55:00 EDT, Cream, [id number], Partial fill upon patient request if the prescription is for a schedule II... Start Date: 05/23/21 Stop Date: 06/06/21 Status: Ordered Problem List Condition Effective Dates Status Health Status Inform ant Anxiety(Confirmed) Active Aortic atherosclerosis(Confirmed) Active Cataracts, bilateral(Confirmed) Active Cholelithiasis(Confirmed) Active Carpal tunnel syndrome(Confirmed) Active GERD (gastroesophageal reflu x disease)(Confirmed) Active Hemorrhoids(Confirmed) Active Hyperlipidemia(Confirmed) Active Hypertension(Confirmed) Active Lactose intolerance(Confirmed) Active Nephrolithiasis(Confirmed) Active Microalbuminuria(Confirmed) Active Migraines(Confirmed) Active Fatty liver disease, nonalcoholic(Confirmed) Active Seasonal allergies(Confirmed) Active Slow transit constipation(Confirmed) Active 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
--- OUTSIDE RECORDS SUMMARY | 2024-06-12 15:41 | XMS_ITS | Continuity of Care Document ---
Author Organization [facility] ter Address [address] [place] [id number]- Care Team Providers Care University Librarian Name Role Phone Celso Corbin Primary Care Physician Encounter [facility] Date(s): 11/29/23 - 11/29/[address] [address]- Encounter Diagnosis Pain of right calf(Final) - 11/29/23 Discharge Disposition: A-D/C Home Attending Physician: Nicolasa Goodwin DO Admitting Physician: Nicolasa Goodwin DO Referring Physician: Not on Staff, Referring MD Allergies, Adverse Reactions, Alerts Substance Reaction Severity Status ibuprofen hives Active naproxen Active amitriptyline Active phenylephrine Active sulfa drugs Active Bentyl Active Peanuts Active minocycline Active dicyclomine Active Latex Active trimethoprim Active metoclopramide Active morphine Active Motrin Active Bactrim Active shellfish Active Phenergan Active Reglan Active Contrast Dye Active Milk Products Active traMADol Active Zinc Active oxyCODONE Active HYDROcodone Active Immunizations Given and Recorded Vaccine Date Status Refusal Reason [id number] bivalent booster vax 09/12/22 Recorded influenza virus vaccine, inactivated 07/02/22 Angel rded influenza virus vaccine, inactivated 07/25/20 Angel rded influenza virus vaccine, inactivated 07/28/19 Angel rded influenza virus vaccine, inactivated 08/19/18 Angel rded influenza virus vaccine, inactivated 07/18/16 Angel rded SARS-CoV-2 (COVID-19) mRNA-1273 vaccine 02/21/22 R ecorded tetanus/diphtheria/pertussis, acel(Tdap) 11/04/21 Recorded SARS-CoV-2 (COVID-19) mRNA BNT-162b2 vac 09/12/21 Recorded SARS-CoV-2 (COVID-19) Ad26 vaccine 01/24/21 Record ed Influenza Virus Vaccine (oldterm) 08/17/20 Recorde d pneumococcal 13-valent vaccine 09/17/19 Recorded pneumococcal 23-valent vaccine 09/17/19 Recorded pneumococcal 23-valent vaccine 01/01/16 Recorded tetanus-diphtheria toxoids (Td) 04/25/13 Recorded Diphth-Tetanus Toxoids Adsorbed(oldterm) 1 01/18/08 Given 1Admin Note: vis given Medications atorvastatin 40 mg oral tablet See Instructions, TAKE 1 TABLET BY MOUTH EVERY DAY IN THE EVENING, # 90 tablet, 2 Refills, [facility]87, 160.2, cm, 05/23/21 13:16:00 EDT, Height Start Date: 07/31/21 Status: Ordered EPINEPHrine 0.3 mg injectable solution 0 Refills, Maintenance, 02/20/21 12:40:00 EDT, Partial fill upon patient request if the prescription is for a schedule II opioid drug. Start Date: 02/20/21 Status: Ordered esomeprazole 40 mg oral enteric coated capsule 1 capsule, By Mouth, Daily, # 90 capsule, 0 Refills, Maintenance, 08/27/23 11:56:00 EDT, [facility], 160, cm, 01/21/23 11:34:00 EDT, Height, 76.9, kg, 07/05/22 7:08:00 EDT, Dry Weight Start Date: 08/27/23 Status: Ordered losartan 50 mg oral tablet 50 mg, 1, tablet, By Mouth, Daily, # 30 tablet, Refills 0, Tot. Refills 0, Maintenance, 09/15/23 8:40:00 EST, Route to Pharmacy Electronically, [facility]/pharmacy #[id number], Partial fill upon patient request if the prescription is for a schedule II opioid drug.... Start Date: 09/15/23 Status: Ordered MetFORMIN (Eqv-Glucophage XR) 500 mg oral tablet, extended release 2 tablet, By Mouth, Daily, # 180 tablet, 1 Refills, Maintenance, 07/17/23 9:26:00 EDT, [facility], 160, cm, 01/21/23 11:34:00 EDT, Height, 76.9, kg, 07/05/22 7:08:00 EDT, Dry Weight Start Date: 07/17/23 Status: Ordered One Touch Delica Lancets See Instructions, # 200 each, Refills 1, Tot. Refills 1, Maintenance, Use as directed for Phill 2 diabetes mellitus to test once a day E11.9, 03/14/23 10:29:00 EDT, Supply, 160, cm, 01/21/23 11:34:00 EDT, Height, 76.9, kg, 07/05/22 7:08:00 EDT, Dry Weight Start Date: 03/14/23 Status: Ordered One Touch Ultra 2 Glucose Meter See Instructions, # 1 each, Refills 0, Tot. Refills 0, Maintenance, Use as directed for type 2 diabetes mellitus E11.9, 03/05/23 14:03:00 EDT, Supply, 160, cm, 01/21/23 11:34:00 EDT, Height, 76.9, kg, 07/05/22 7:08:00 EDT, Dry Weight Start Date: 03/05/23 Status: Ordered One Touch Ultra Test Strips See Instructions, # 200 each, Refills 2, Tot. Refills 2, Maintenance, use as directed for Type 2 Diabetes Mellitus to test once a day E11.9, 03/05/23 14:03:00 EDT, Supply, 160, cm, 01/21/23 11:34:00 EDT, Height, 76.9, kg, 07/05/22 7:08:00 EDT, Dry Weight Start Date: 03/05/23 Status: Ordered ONETOUCH ULTRA TEST STRIP ONETOUCH ULTRA TEST STRIP, USE TO TEST ONCE DAILY DIRECTED Start Date: 11/27/23 Status: Ordered predniSONE 10 mg oral tablet See Instructions, 4 tab x 3d, 3 tab x 2d, 2 tab x 2d. First dose now, then in AM daily. Take w/food, # 22 tablet, 0 Refills, Acute 12/13/23 17:28:00 EST, 11/27/23 17:26:00 EST, [facility]/pharmacy #[id number], Partial fill upon patient request if the prescription... Start Date: 11/27/23 Stop Date: 12/13/23 Status: Ordered RABEprazole 20 mg oral delayed release tablet TAKE 1 TABLET ORALLY DAILY Start Date: 11/27/23 Status: Ordered sucralfate 1 gm oral tablet TAKE 1 TABLET BY MOUTH TWICE A DAY Start Date: 11/27/23 Status: Ordered Tradjenta 5 mg oral tablet 1 tablet, By Mouth, Daily, # 90 tablet, 3 Refills, Maintenance, 02/26/23 15:59:00 EDT, [facility] 96016, 160, cm, 01/21/23 11:34:00 EDT, Height, 76.9, kg, 07/05/22 7:08:00 EDT, Dry Weight Start Date: 02/26/23 Status: Ordered Trulicity Pen 1.5 mg/0.5 mL subcutaneous solution See Instructions, INJECT 0.5ML SUBCUTANEOUSLY ONCE WEEKLY ROTATING INJECTION SITES, # 2 Unknown, 5 Refills, Maintenance, 04/09/23 21:20:00 EDT, [facility], 160, cm, 01/21/23 11:34:00 EDT, Height, 76.9, kg, 07/05/22 7:08:00 EDT, Dry Weight Start Date: 04/09/23 Status: Ordered Problem List Condition Confirmation Course Effective Dates Status H ealth Status Informant Anxiety Confirmed Active Aortic atherosclerosis Confirmed Active Cataracts, bilateral Confirmed Active Cholelithiasis Confirmed Active Carpal tunnel syndrome Confirmed Active GERD (gastroesophageal reflux disease) Confirmed Active Hemorrhoids Confirmed Active Hyperlipidemia Confirmed Active Hypertension associated with type 2 diabetes mellitus Confirmed Active Nephrolithiasis Confirmed Active Migraines Confirmed Active Fatty liver disease, nonalcoholic Confirmed Active Non-ulcer dyspepsia Confirmed Active Obesity Confirmed Active Slow transit constipation Confirmed Active 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 Results Radiology Reports * Exam Date Time Procedure Performing Provider Status 11/29/23 6:09 PM US Doppler Ext Lower Venous Right Torrie Gandhi; Auth (Verified) Notes: (US Doppler Ext Lower Venous Right) Reason For Exam: Pain in limb;Other: RESULT: US Doppler Ext Lower Venous Right US Doppler Ext Lower Venous Right Hx of Present Illness: right heel and leg pain; Reason: Other:; Pain in limb; Clinical Question(s):Thrombus COMPARISON: None IMAGING TECHNIQUE: Ultrasound of the veins from the groin through the calf was performed using grayscale, color, and spectral Doppler ultrasound assessing for complete compressibility and normal flowcharacteristics. FINDINGS: Common femoral vein: Patent. No thrombosis. Femoral vein: Patent. No thrombosis. Popliteal vein: Patent. No thrombosis. Gastrocnemius veins: The visualized portions are patent without evidence of thrombosis. Peroneal veins: The visualized portions are patent without evidence of thrombosis. Posterior tibial veins: The visualized portions are patent without evidence of thrombosis. Contralateral common femoral vein: Patent. No thrombosis. OTHER FINDINGS: None. IMPRESSION: No evidence of deep venous thrombosis. WSN: [id number] Ordering Physician: Will Adam Dictated By: Jerrod Black MD Dictated Date/Time: 11/29/23 6:50 pm Reviewed By: Jerrod Black MD Signed By: Jerrod Black MD Signed Date/Time: 11/29/23 6:50 pm Transcribed By: JEFF Transcribed Date/Time: 11/29/23 6:50 pm Vital Signs Most recent to oldest [Reference Range]: 1 2 3 Height 163 cm (11/29/23 6:52 PM) 163 cm (11/29/23 3:29 PM) 163 cm (11/29/23 2:50 PM) Weight 72 kg (11/29/23 6:52 PM) 72 kg (11/29/23 3:29 PM) 72 kg (11/29/23 2:50 PM) Oxygen Saturation [94-100 %] 97 % (11/29/23 6:52 PM) 99 % (11/29/23 2:50 PM) Pulse Rate [55-90 bpm] 75 bpm (11/29/23 6:52 PM) 84 bpm (11/29/23 2:50 PM) Body Mass Index [18.5-24.99 kg/m2] 27.1 kg/m2 *H* (11/29/23 6:52 PM) 27.1 kg/m2 *H* (11/29/23 2:50 PM) Blood Pressure [90-138/55-84 mm Hg] 146/80mm Hg *H* (11/29/23 6:52 PM) 145/73mm Hg *H* (11/29/23 2:50 PM) Respiratory Rate [16-30 br/min] 19 br/min (11/29/23 6:52 PM) 18 br/min (11/29/23 2:50 PM) Temperature [96.8-100.4 DegF] 98.1 DegF (11/29/23 6:52 PM) 98.3 DegF (11/29/23 2:50 PM) Mode of Delivery (Oxygen) Room air (11/29/23 6:52 PM) Room air (11/29/23 2:50 PM) Blood pressure sites Arm, right (11/29/23 6:52 PM) Arm, right (11/29/23 2:50 PM) Temperature Route Oral (11/29/23 6:52 PM) Oral (11/29/23 2:50 PM) Dry Weight 72 kg (11/29/23 6:52 PM) 72 kg (11/29/23 3:29 PM) 72 kg (11/29/23 2:50 PM) Weight Obtained Via Patient/family state d (11/29/23 2:50 PM) Dry Weight Obtained Via Patient/family s tated (11/29/23 2:50 PM) Social History Social History Type Response Smoking Status Never (less than 100 in lifetime); Tobacco user in household: No entered on: 12/09/18 Sex Patient Care team information Care Team Personnel Name: Celso Corbni Position: Reference Physician Member Role: PCP Address: Address: [address] [place] [address]- Care Team Related Persons Name: GIOVANNA FLEMING Address: home [address] [place] [address] Name: GATITO VILLA Address: home [address] [place] [address] Name: ANAND VILLA Address: home [address] [place] [address]
--- OUTSIDE RECORDS SUMMARY | 2024-06-12 15:41 | XMS_ITS | Continuity of Care Document ---
Author Organization [facility] ter Address [address] [place] [address]- Care Team Providers Care Cutting Machine Tender Decorative Name Role Phone Celso Corbin Primary Care Physician [facility]counter [facility] Date(s): 01/16/24 - 03/15/[address] [address] Attending Physician: Celso Corbin Admitting Physician: Celso Corbin Referring Physician: Celso Corbin Allergies, Adverse Reactions, Alerts Substance Reaction Severity Status ibuprofen hives Active naproxen Active minocycline Active trimethoprim Active amitriptyline Active metoclopramide Active morphine Active phenylephrine Active dicyclomine Active sulfa drugs Active shellfish Active Bentyl Active Motrin Active Phenergan Active Bactrim Active Reglan Active Contrast Dye Active Latex Active Milk Products Active Peanuts Active traMADol Active oxyCODONE Active HYDROcodone Active Zinc Active Immunizations Given and Recorded Vaccine Date Status Refusal Reason [id number] bivalent booster vax 09/12/22 Recorded influenza virus [...] THE EVENING, # 90 tablet, 2 Refills, [facility], 160.2, cm, 05/23/21 13:16:00 EDT, Height Start [...] Refills, Maintenance, 08/27/23 11:56:00 EDT, [facility], 160, cm, 01/21/23 11:34:00 EDT, Height, 76.9, kg, 07/05/22 7:08:00 EDT, Dry Weight Start Date: 08/27/23 Status: Ordered losartan 50 mg oral tablet 50 mg, 1, tablet, By Mouth, Daily, # 30 tablet, Refills 0, Tot. Refills 0, Maintenance, 09/15/23 8:40:00 EST, Route to Pharmacy Electronically, [facility]/pharmacy #[id number], Partial fill upon patient request if the prescription is for a schedule II opioid drug.... Start Date: 09/15/23 Status: Ordered MetFORMIN (Eqv-Glucophage XR) 500 mg oral tablet, extended release 2 tablet, By Mouth, Daily, PLEASE HAVE LABS DRAWN FOR ADDITIONAL REFILLS, # 180 tablet, 0 Refills, Maintenance, 01/10/24 8:55:00 EST, [facility]/pharmacy #[id number], 163, cm, 11/29/23 18:52:00 EST, Height, 72, kg, 11/29/23 18:52:00 EST, Dry Weight Start Date: 01/10/24 Status: Ordered One Touch Delica Lancets See [...] DAILY DIRECTED Start Date: 11/27/23 Status: Ordered RABEprazole 20 mg oral delayed release tablet TAKE 1 TABLET ORALLY DAILY Start Date: 11/27/23 Status: Ordered sucralfate 1 gm oral tablet TAKE 1 TABLET BY MOUTH TWICE A DAY Start Date: 11/27/23 Status: Ordered Tradjenta 5 mg oral tablet 1 tablet, By Mouth, Daily, # 90 tablet, 3 Refills, Maintenance, 02/26/23 15:59:00 EDT, [facility], 160, cm, 01/21/23 11:34:00 EDT, Height, 76.9, kg, 07/05/22 7:08:00 EDT, Dry Weight Start Date: 02/26/23 Status: Ordered Trulicity Pen 1.5 mg/0.5 mL subcutaneous solution See Instructions, INJECT 0.5ML SUBCUTANEOUSLY ONCE WEEKLY ROTATING INJECTION SITES, # 2 Unknown, 5 Refills, Maintenance, 04/09/23 21:20:00 EDT, [facility], 160, cm, 01/21/23 11:34:00 EDT, Height, 76.9, [...] diabetes mellitus with diabetic nephropathy Confirmed Active Social History Social History Type Response Smoking Status Never (less than 100 in lifetime); Tobacco user in household: No entered on: 12/09/18 Sex Patient Care team information Care Team Personnel Name: Celso Corbin Position: Reference Physician Member Role: PCP Address: Address: [address] [place] [address]- Care Team Related Persons Name: GIOVANNA FLEMING Address: home [address] [place] [address] Name: GATITO VILLA Address: home [address] [place] [address] Name: ANAND VILLA Address: [address] [place] [address]
--- OUTSIDE RECORDS SUMMARY | 2024-06-12 15:41 | XMS_ITS | Continuity of Care Document ---
Author Organization [facility] Address [address] [place] [address]- Care Team Providers Care Compressor Operator Adjuster Name Role Phone Celso Corbin Primary Care Physician Encounter [facility] Date(s): 11/27/23 - 12/04/23 [facility] [address] [place], [place] [address] Attending Physician: Shine Davenport MD Referring Physician: Not on Staff, Referring MD [...] and Recorded Vaccine Date Status Refusal Reason [id number] bivalent booster vax 09/12/22 Recorded influenza virus [...] # 90 tablet, 2 Refills, [facility], 160.2, cm, 05/23/21 13:16:00 EDT, Height Start [...] Refills, Maintenance, 08/27/23 11:56:00 EDT, [facility], 160, cm, 01/21/23 11:34:00 EDT, Height, 76.9, kg, 07/05/22 7:08:00 EDT, Dry Weight Start Date: 08/27/23 Status: Ordered losartan 50 mg oral tablet 50 mg, 1, tablet, By Mouth, Daily, # 30 tablet, Refills 0, Tot. Refills 0, Maintenance, 09/15/23 8:40:00 EST, Route to Pharmacy Electronically, [facility]/pharmacy #[id number], Partial fill upon patient request if the prescription is for a schedule II opioid drug.... Start Date: 09/15/23 Status: Ordered MetFORMIN (Eqv-Glucophage XR) 500 mg oral tablet, extended release 2 tablet, By Mouth, Daily, # 180 tablet, 1 Refills, Maintenance, 07/17/23 9:26:00 EDT, [facility], 160, cm, 01/21/23 11:34:00 EDT, Height, 76.9, [...] Acute 12/13/23 17:28:00 EST, 11/27/23 17:26:00 EST, [facility]/pharmacy #[id number], Partial fill upon patient request if the [...] Refills, Maintenance, 02/26/23 15:59:00 EDT, [facility], 160, cm, 01/21/23 11:34:00 EDT, Height, 76.9, kg, 07/05/22 7:08:00 EDT, Dry Weight Start Date: 02/26/23 Status: Ordered Trulicity Pen 1.5 mg/0.5 mL subcutaneous solution See Instructions, INJECT 0.5ML SUBCUTANEOUSLY ONCE WEEKLY ROTATING INJECTION SITES, # 2 Unknown, 5 Refills, Maintenance, 04/09/23 21:20:00 EDT, [facility], 160, cm, 01/21/23 11:34:00 EDT, Height, 76.9, [...] diabetes mellitus with diabetic nephropathy Confirmed Active Vital Signs Most recent to oldest [Reference Range]: 1 Height 160 cm (11/27/23 3:30 PM) Oxygen Saturation [94-100 %] 100 % (11/27/23 3:30 PM) Pulse Rate [55-90 bpm] 90 bpm (11/27/23 3:30 PM) Blood Pressure [90-138/55-84 mm Hg] 134/ 76mm Hg (11/27/23 3:30 PM) Respiratory Rate [16-30 br/min] 17 br/mi n (11/27/23 3:30 PM) Temperature [96.8-100.4 DegF] 97.2 DegF (11/27/23 3:30 PM) Mode of Delivery (Oxygen) Room air (11/27/23 3:30 PM) Blood pressure sites Arm, left (11/27/23 3:30 PM) Temperature Route Oral (11/27/23 3:30 PM) Social History Social History Type Response Smoking Status Never (less than 100 in lifetime); Tobacco user in household: No entered on: 12/09/18 Sex Note * Marck Thompson: PERFORM, SIGN, VERIFY Event Display: Patient Education/Instruction Authored Date: [id number] [facility] Clinical Summary Name SARATH BARTON Age 68 Years 1955 PCP Not on Staff, PCP PCP Phone Visit Date 11/27/2023 15:04:00 Additional Instructions: Scheduled Appointments?? Future Appointments ?No Future Appointments Scheduled Follow-Up Instructions ?? Diagnosis Medications: Please continue your medications until treatment is completed or stopped by your provider. Discuss any questions related to medications with your provider. New Medications [id number] [address], [place] [id number], [phone] PredniSONE (predniSONE 10 mg oral tablet) 4 tab x 3d, 3 tab x 2d, 2 tab x 2d. First dose now, then in AM daily. Take w/food. Refills: 0. Next Dose: Medications to Continue with No Changes These medications were not printed or sent to your pharmacy Atorvastatin (atorvastatin 40 mg oral tablet) TAKE 1 TABLET BY MOUTH EVERY DAY IN THE EVENING. Refills: 2. Next Dose: dulaglutide (Trulicity Pen 1.5 mg/0.5 mL subcutaneous solution) INJECT 0.5ML SUBCUTANEOUSLY ONCE WEEKLY ROTATING INJECTION SITES. Refills: 5. Next Dose: Durable Medical Equipment (One Touch Delica Lancets) Use as directed for Trail 2 diabetes mellitus totest once a day E11.9. Refills: 1. Next Dose: Durable Medical Equipment (One Touch Ultra 2 Glucose Meter) Use as directed for type 2 diabetes mellitus E11.9. Refills: 0. Next Dose: Durable Medical Equipment (One Touch Ultra Test Strips) use as directed for Type 2 Diabetes Mellitus to test once a day E11.9. Refills: 2. Next Dose: EPINEPHrine (EPINEPHrine 0.3 mg injectable solution) Next Dose: Esomeprazole (esomeprazole 40 mg oral enteric coated capsule) 1 capsule Oral Daily. Refills: 0. Next Dose: linagliptin (Tradjenta 5 mg oral tablet) 1 tab(s) Oral Daily. Refills: 3. Next Dose: Losartan (losartan 50 mg oral tablet) 1 tab(s) Oral Daily. Refills: 0. Next Dose: Metformin (MetFORMIN (Eqv-Glucophage XR) 500 mg oral tablet, extended release) 2 tab(s) Oral Daily.Refills: 1. Next Dose: Miscellaneous Rx (ONETOUCH ULTRA TEST STRIP) USE TO TEST ONCE DAILY DIRECTED. Next Dose: Rabeprazole (RABEprazole 20 mg oral delayed release tablet) TAKE 1 TABLET ORALLY DAILY. Next Dose: Sucralfate (sucralfate 1 gm oral tablet) TAKE 1 TABLET BY MOUTH TWICE A DAY. Next Dose: Allergy Info:?? Zinc; HYDROcodone; oxyCODONE; traMADol; Peanuts; Milk Products; Latex; Contrast Dye; Reglan; Bactrim; Phenergan; Motrin; Bentyl; shellfish; sulfa drugs; dicyclomine; phenylephrine; morphine; metoclopramide; amitriptyline; trimethoprim; minocycline; naproxen; ibuprofen Medications Given This Visit Future Orders ?Sedimentation Rate? Order Date:11/27/23?- Complete within?3 days ?C Reactive Protein? Order Date:11/27/23?- Complete within?3 days ?CBC? Order Date:11/27/23?- Complete within?3 days ?Foot Min 3 Views Right? Order Date:11/27/23?- Complete within?3 days Vital Signs Height 160 cm Weight BMI Blood Pressure 134 mm Hg/76 mm Hg Temperature 97.2 DegF Pulse Rate 90 bpm Respiratory Rate 17 br/min 02 Sat Mode of Delivery 100 %/Room air You can now view a summary of your hospital visit from the comfort of your home through a free online portal called [facility]. [facility] is a website that allows you to securely view your medical information including discharge summary, medications and follow-up visits. ??You can alsosend a secure electronic message to your doctor???s office to request appointments, renew medications or just ask a question. You can enroll at [email or web address] or register during your next office visit. Disclaimer:?? The information provided is of a general nature and is intended to be used in conjunction with the recommendations and advice of your health care practitioner. ??Every effort has been made to ensure that the information provided is accurate and complete at the time it is provided to you however, as your needs change, or, as new ??information becomes available, different or additional instructions may be required. If you have questions, please consult with your primary care provider or pharmacist, as appropriate. ??This information is not intended to serve as substitution for assessment and evaluation by a qualified health care provider. If you do not have a primary care provider, you may find a [facility] provider by calling [facility] Link at [phone]. [facility], in keeping with [facility] guidance, no longer requires face masks for staff, patientsor visitors in most situations. Similar to time spent indoors at other locations, there is the chance that you were exposed to respiratory viruses during your time with us (such as flu or COVID-19).? If you develop symptoms concerning for a viral respiratory infection, please seek testing (and treatment if indicated) from your medical provider or home test kit. For information about the plan of care including goals and instructions for your diagnosis, please see the patient education orders section of this document. Patient Education Materials?? The content of this educational material or handout may have been modified, supplemented, or adapted from its original content and format to support your individualized medical care. Patient Care team information Care Team Personnel Name: Celso Corbin Position: Reference Physician Member Role: PCP Address: Address: [address] [place] [address]- Care Team Related Persons Name: GIOVANNA FLEMING Address: [address] [place] [address] Name: GATITO VILLA Address: home [address] [place] [address] Name: ANAND VILLA Address: home [address] [place] [address]
--- OUTSIDE RECORDS SUMMARY | 2024-06-12 15:41 | XMS_ITS | Continuity of Care Document ---
Author Organization [facility] Address [address] [place] [address]- Care Team Providers Care Produce Team Lead Name Role Phone Celso Corbin Primary Care Physician [facility]counter [facility] Date(s): 11/27/23 - 12/27/23 [facility] [address] [place], [place] [address] Attending Physician: Gladys Rubin Admitting Physician: Admtr, Ar8 Referring Physician: Admtr, Ar8 Allergies, Adverse Reactions, Alerts Substance Reaction Severity [...] and Recorded Vaccine Date Status Refusal Reason [id number] bivalent booster vax 09/12/22 Recorded influenza virus [...] # 90 tablet, 2 Refills, [facility], 160.2, cm, 05/23/21 13:16:00 EDT, Height Start [...] Refills, Maintenance, 08/27/23 11:56:00 EDT, [facility], 160, cm, 01/21/23 11:34:00 EDT, Height, 76.9, kg, 07/05/22 7:08:00 EDT, Dry Weight Start Date: 08/27/23 Status: Ordered losartan 50 mg oral tablet 50 mg, 1, tablet, By Mouth, Daily, # 30 tablet, Refills 0, Tot. Refills 0, Maintenance, 09/15/23 8:40:00 EST, Route to Pharmacy Electronically, [facility]/pharmacy #[id number], Partial fill upon patient request if the prescription is for a schedule II opioid drug.... Start Date: 09/15/23 Status: Ordered MetFORMIN (Eqv-Glucophage XR) 500 mg oral tablet, extended release 2 tablet, By Mouth, Daily, # 180 tablet, 1 Refills, Maintenance, 07/17/23 9:26:00 EDT, [facility], 160, cm, 01/21/23 11:34:00 EDT, Height, 76.9, [...] Refills, Maintenance, 02/26/23 15:59:00 EDT, [facility], 160, cm, 01/21/23 11:34:00 EDT, Height, 76.9, kg, 07/05/22 7:08:00 EDT, Dry Weight Start Date: 02/26/23 Status: Ordered Trulicity Pen 1.5 mg/0.5 mL subcutaneous solution See Instructions, INJECT 0.5ML SUBCUTANEOUSLY ONCE WEEKLY ROTATING INJECTION SITES, # 2 Unknown, 5 Refills, Maintenance, 04/09/23 21:20:00 EDT, [facility], 160, cm, 01/21/23 11:34:00 EDT, Height, 76.9, [...] Physician Member Role: PCP Address: Address: [address] [place] [address]- Care Team Related Persons Name: GIOVANNA FLEMING Address: [address] [place] [address] Name: GATITO VILLA Address: [address] [place] [address] Name: ANAND VILLA Address: [address] [place] [address]
--- OUTSIDE RECORDS SUMMARY | 2024-06-12 15:42 | XMS_ITS | Continuity of Care Document ---
Author Organization [facility] Address [address] [place] [address]- Care Team Providers Care Malt House Loader Name Role Phone Jazmin Rangel NP [id number]06/21 - 04/13/21 [facility] [address] [place] [phone] Encounter Diagnosis Skin rash(Discharge Diagnosis) - 04/06/21 Attending Physician: Not on Staff, Attending MD Allergies, Adverse Reactions, Alerts Substance Reaction Severity Status ibuprofen hives Active naproxen Active minocycline Active amitriptyline Active metoclopramide Active morphine Active phenylephrine Active dicyclomine Active sulfa drugs Active shellfish Active Bentyl Active Motrin Active Phenergan Active Bactrim Active Reglan Active Contrast Dye Active Latex Active Milk Products Active traMADol Active Immunizations Given and Recorded Vaccine Date Status Refusal Reason Influenza Virus Vaccine (oldterm) 08/17/20 Recorde d pneumococcal 13-valent vaccine 09/17/19 Recorded pneumococcal 23-valent vaccine 1 09/17/19 Recorded pneumococcal 23-valent vaccine 01/01/16 Recorded Diphth-Tetanus Toxoids Adsorbed(oldterm) 2 01/18/08 Given 1Result Comment: wrong vaccine 2Admin Note: vis given Medications Aspirin Enteric Coated 81 mg oral delayed release tablet 0 Refills, Maintenance, 02/20/21 12:40:00 EDT, Partial fill upon patient request if the prescription is for a schedule II opioid drug. Start Date: 02/20/21 Status: Ordered atorvastatin 40 mg oral tablet 0 Refills, Maintenance, 02/20/21 12:40:00 EDT, Partial fill upon patient request if the prescription is for a schedule II opioid drug. Start Date: 02/20/21 Status: Ordered betamethasone-clotrimazole 0.05%-1% topical cream 1 application, Topically, 2 times a day, for 14 days, Not to be used longer than 2 weeks, # 45 Gm, 0 Refills, Acute 04/20/21 16:04:00 EDT, 04/06/21 16:04:00 EDT, Cream, [facility]/pharmacy #[id number], Partial fill upon patient request if the prescription is for a... Start Date: 04/06/21 Stop Date: 04/20/21 Status: Ordered cetirizine 10 mg oral tablet 0 Refills, Maintenance, 02/20/21 12:40:00 EDT, Partial fill upon patient request if the prescription is for a schedule II opioid drug. Start Date: 02/20/21 Status: Ordered EPINEPHrine 0.3 mg injectable solution [...] opioid drug. Start Date: 02/20/21 Status: Ordered Problem List Condition Effective Dates [...] diabetes mellitus wit h diabetic nephropathy(Confirmed) Active Diagnosis Diagnosis Type Effective Dates Health Status Clini shabnam Service Informant Skin rash Discharge Diagnosis 04/06/21 Vital Signs Most recent to oldest [Reference Range]: 1 Height 160.2 cm (04/06/21 3:33 PM) Weight 77.4 kg (04/06/21 3:33 PM) Oxygen Saturation [94-100 %] 97 % (04/06/21 3:33 PM) Pulse Rate [55-90 bpm] 94 bpm *H* (04/06/21 3:33 PM) Body Mass Index [18.5-24.99] 30.16 *>HHI* (04/06/21 3:33 PM) Blood Pressure [90-138/55-84 mm Hg] 115/ 77mm Hg (04/06/21 3:33 PM) Temperature [96.8-100.4 DegF] 98.1 DegF (04/06/21 3:33 PM) Mode of Delivery (Oxygen) Room air (04/06/21 3:33 PM) Blood pressure sites Arm, right (04/06/21 3:33 PM) Temperature Route Oral (04/06/21 3:33 PM) Weight Obtained Via Standing scale (04/06/21 3:33 PM) Social History Social History Type Response Smoking Status Never (less than 100 in lifetime); Tobacco user in household: No entered on: 12/09/18 Sex
--- OUTSIDE RECORDS SUMMARY | 2024-06-12 15:42 | XMS_ITS | Continuity of Care Document ---
Author Organization [facility] Address [address] [place] [address]- Care Team Providers Care Handkerchief Cutter Name Role Phone Jazmin Rangel NP Primary Care Physician Encounter 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 Start Date: 02/20/21 Status: Ordered cetirizine 10 mg oral tablet [...] Diagnosis Diagnosis Type Effective Dates Health Status Clinical Service Informant Hypertension Discharge Diagnosis 02/20/21 Hyperlipidemia Discharge Diagnosis 02/20/21 Dry cough Discharge Diagnosis 02/20/21 Type 2 diabetes mellitus with diabetic nephropathy Discharge Diagnosis 02/20/21 Procedures Procedure Date Related Diagnosis Body Site Status Carpal tunnel release 1 C ompleted Tubal ligation Completed Vocal cordectomy type I 2 Completed 1Left 2018 2vocal cord polyp Vital Signs Most recent to oldest [Reference Range]: 1 2 Height 160.2 cm (02/20/21 12:48 PM) 160.2 cm (02/20/21 12:33 PM) Weight 74.2 kg (02/20/21 12:33 PM) Oxygen Saturation [94-100 %] 98 % (02/20/21 12:33 PM) Pulse Rate [55-90 bpm] 80 bpm (02/20/21 12:33 PM) Body Mass Index [18.5-24.99] 28.91 *H* (02/20/21 12:33 PM) Blood Pressure [90-138/55-84 mm Hg] 134/ 80mm Hg (02/20/21 12:48 PM) 142/78mm Hg *H* (02/20/21 12:33 PM) Temperature [96.8-100.4 DegF] 98.2 DegF (02/20/21 12:33 PM) Mode of Delivery (Oxygen) Room air (02/20/21 12:33 PM) Blood pressure sites Arm, left (02/20/21 12:48 PM) Arm, left (02/20/21 12:33 PM) Temperature Route Oral (02/20/21 12:33 PM) Weight Obtained Via Standing scale (02/20/21 12:33 PM) Social History Social History Type Response Smoking Status Never (less than 100 in lifetime); Tobacco user in household: No entered on: 12/09/18 Sex
--- OUTSIDE RECORDS SUMMARY | 2024-06-12 15:42 | XMS_ITS | Continuity of Care Document ---
Author Organization [facility] Address [address] [place] [address]- Care Team Providers Care Ornamental Ironworker Name Role Phone Jazmin Rangel NP Primary Care Physician En[place] [facility] Date(s): 08/30/21 - 09/29/21 [facility] [address] [place] [address]- Allergies, Adverse Reactions, Alerts Substance Reaction Severity Status ibuprofen hives Active naproxen Active minocycline Active amitriptyline Active metoclopramide Active morphine Active phenylephrine Active dicyclomine Active sulfa drugs Active shellfish Active Bentyl Active Motrin Active Phenergan Active Bactrim Active Reglan Active Contrast Dye Active Latex Active Milk Products Active traMADol Active Immunizations Given and Recorded Vaccine Date Status Refusal Reason SARS-CoV-2 (COVID-19) mRNA BNT-162b2 vac 09/12/21 Recorded [...] vaccine 2Admin Note: vis given Medications Aspirin Low Dose 81 mg oral delayed release tablet 1 tablet, By Mouth, Daily, for 90 days, # 90 tablet, 1 Refills, Physician Stop 02/25/22 13:52:00 EDT, 08/29/21 13:52:00 EDT, [facility]/pharmacy #[id number], 160.2, cm, 08/29/21 13:38:00 EDT, Height Start Date: 08/29/21 Stop Date: 02/25/22 Status: Ordered atorvastatin 40 mg oral tablet See Instructions, TAKE 1 TABLET BY MOUTH EVERY DAY IN THE EVENING, # 90 tablet, 2 Refills, [id number], 160.2, cm, 05/23/21 13:16:00 EDT, Height Start Date: 07/31/21 Status: Ordered atorvastatin 40 mg oral tablet [...] opioid drug. Start Date: 02/20/21 Status: Ordered Farxiga 10 mg oral tablet 1 tablet = 10 mg, By Mouth, Daily, # 90 tablet, 0 Refills, Maintenance, 08/29/21 14:11:00 EDT, Tablet, [facility]/pharmacy #[id number], Partial fill upon patient request if the prescription is for a schedule II opioid drug., 160.2, cm, 08/29/21 13:38:00 EDT, Height Start Date: 08/29/21 Stop Date: 11/27/21 Status: Ordered Invokana 100 mg oral tablet 1 tablet = 100 mg, By Mouth, Daily, # 30 tablet, 0 Refills, Maintenance, 08/31/21 13:55:00 EDT, Tablet, [facility]/pharmacy #[id number], Partial fill upon patient request if the prescription is for a schedule II opioid drug., 160.2, cm, 08/29/21 13:38:00 EDT, Height Start Date: 08/31/21 Stop Date: 09/30/21 Status: Ordered Jardiance 25 mg oral tablet 1 tablet = 25 mg, By Mouth, Daily in AM, # 30 tablet, 0 Refills, Maintenance, 09/03/21 12:43:00 EDT, Tablet, [facility]/pharmacy #[id number], Partial fill upon patient request if the prescription is for a schedule II opioid drug., 160.2, cm, 08/29/21 13:38:00 EDT,... Start Date: 09/03/21 Stop Date: 10/03/21 Status: Ordered losartan 25 mg oral tablet 1 tablet = 25 mg, By Mouth, Daily, # 90 tablet, 1 Refills, Maintenance, 08/29/21 13:54:00 EDT, Tablet, [facility]/pharmacy #[id number], Partial fill upon patient request if the prescription is for a schedule II opioid drug., 160.2, cm, 08/29/21 13:38:00 EDT, Height Start Date: 08/29/21 Stop Date: 02/25/22 Status: Ordered MetFORMIN (Eqv-Glucophage XR) 500 mg oral tablet, extended release 0 Refills, Maintenance, 02/20/21 12:40:00 EDT, Partial fill upon patient request if the prescription is for a schedule II opioid drug. Start Date: 02/20/21 Status: Ordered MoviPrep oral powder for reconstitution 240 mL, By Mouth, Every 15 minutes, Dose #1 evening before colonoscopy and dose #2 is 6 hours before colonoscopy, # 1 each, 0 Refills, Acute 10/23/21 10:00:00 EST, 10/22/21 17:00:00 EST, REC Powder, [facility]/pharmacy #[id number], test date 10/23/21, 240 mL By Mo... Start Date: 10/22/21 Stop Date: 10/23/21 Status: Ordered polyethylene glycol 3350 oral powder [...] Migraines(Confirmed) Active Fatty liver disease, nonalcoholic(Confirmed) Active Obese class I(Confirmed) Active Seasonal allergies(Confirmed) Active Slow transit constipation(Confirmed) Active 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
--- OUTSIDE RECORDS SUMMARY | 2024-06-12 15:42 | XMS_ITS | Continuity of Care Document ---
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) - 08/29/21 Right shoulder pain(Discharge Diagnosis) - 08/29/21 Attending Physician: Jazmin Rangel NP Allergies, Adverse Reactions, Alerts Substance Reaction Severity Status ibuprofen hives Active naproxen Active minocycline Active metoclopramide Active dicyclomine Active shellfish Active Bentyl Active Reglan Active Contrast Dye Active Latex Active traMADol Active amitriptyline Active morphine Active Motrin Active Bactrim Active phenylephrine Active sulfa drugs Active Phenergan Active Milk Products Active Immunizations Given and Recorded Vaccine Date [...] Stop 02/25/22 13:52:00 EDT, 08/29/21 13:52:00 EDT, [facility]/pharmacy #[id number], 160.2, cm, 08/29/21 13:38:00 EDT, Height Start Date: 08/29/21 Stop Date: 02/25/22 Status: Ordered atorvastatin 40 mg oral tablet See Instructions, TAKE 1 TABLET BY MOUTH EVERY DAY IN THE EVENING, # 90 tablet, 2 Refills, [id number], 160.2, cm, 05/23/21 13:16:00 EDT, Height Start [...] 0 Refills, Maintenance, 08/29/21 14:11:00 EDT, Tablet, [facility]/pharmacy #[id number], Partial fill upon patient request if the prescription is for a schedule II opioid drug., 160.2, cm, 08/29/21 13:38:00 EDT, Height Start Date: 08/29/21 Stop Date: 11/27/21 Status: Ordered Invokana 100 mg oral tablet 1 tablet = 100 mg, By Mouth, Daily, # 30 tablet, 0 Refills, Maintenance, 08/31/21 13:55:00 EDT, Tablet, [facility]/pharmacy #[id number], Partial fill upon patient request if the prescription is for a schedule II opioid drug., 160.2, cm, 08/29/21 13:38:00 EDT, Height Start Date: 08/31/21 Stop Date: 09/30/21 Status: Ordered Jardiance 25 mg oral tablet 1 tablet = 25 mg, By Mouth, Daily in AM, # 30 tablet, 0 Refills, Maintenance, 09/03/21 12:43:00 EDT, Tablet, [facility]/pharmacy #[id number], Partial fill upon patient request if the prescription is for a schedule II opioid drug., 160.2, cm, 08/29/21 13:38:00 EDT,... Start Date: 09/03/21 Stop Date: 10/03/21 Status: Ordered losartan 25 mg oral tablet 1 tablet = 25 mg, By Mouth, Daily, # 90 tablet, 1 Refills, Maintenance, 08/29/21 13:54:00 EDT, Tablet, [facility]/pharmacy [...] 10:00:00 EST, 10/22/21 17:00:00 EST, REC Powder, [facility]/pharmacy #[id number], test date 10/23/21, 240 mL [...] Effective Dates Health Status Clinical Service Informant Type 2 diabetes mellitus with diabetic nephropathy Discharge Diagnosis 08/29/21 Right shoulder pain Discharge Diagnosis 08/29/21 Vital Signs Most recent to oldest [Reference Range]: 1 Height 160.2 cm (08/29/21 1:38 PM) Weight 78.1 kg (08/29/21 1:38 PM) Oxygen Saturation [94-100 %] 96 % (08/29/21 1:38 PM) Pulse Rate [55-90 bpm] 99 bpm *H* (08/29/21 1:38 PM) Body Mass Index [18.5-24.99] 30.43 *>HHI* (08/29/21 1:38 PM) Systolic Blood Pressure [90-138 mm Hg] 1 20 mm Hg (08/29/21 1:38 PM) Mode of Delivery (Oxygen) Room air (08/29/21 1:38 PM) Blood pressure sites Arm, left (08/29/21 1:38 PM) Weight Obtained Via Standing scale (08/29/21 1:38 PM) Social History Social History Type Response Smoking Status Never (less than 100 in lifetime); Tobacco user in household: No entered on: 12/09/18 Sex
--- OUTSIDE RECORDS SUMMARY | 2024-06-12 15:42 | XMS_ITS | Continuity of Care Document ---
Author Organization [facility] Address [address] [place] [address]- Care Team Providers Care High Speed Warper Tender Name Role Phone Jazmin Rangel NP Primary Care Physician Encounter [facility] Date(s): 02/20/21 - 03/22/21 [facility] [address] [place] [address]- Allergies, Adverse Reactions, Alerts Substance Reaction Severity [...]
[2024-06-12 15:53] VITALS: BP 129/71; PULSE 80; RESP 16; TEMP 36.8; O2SAT 96
[2024-06-12 16:25] VITALS: BP 129/71; PULSE 80; RESP 16; TEMP 36.8; O2SAT 96
== END 2024-06-12 16:25 | disposition home or self-care (01) ==
PROVIDERS: Registered Nurse Emergency; Emergency Provider Emergency Medicine; PCP Physician Assistant
DX: J01.10 Acute frontal sinusitis, unspecified (principal); Z03.818 Encounter for observation for suspected exposure to other biological agents ruled out; R05.9 Cough, unspecified
CPT/HCPCS: 0241U; 71046; 87651; 99283

== ENCOUNTER 2024-07-14 09:25 | Outpatient (REF) | payer OTHER, SELFPAY ==
[2024-07-14 10:30] LABS: Hematocrit 35.9 % (37.0-47.0); Hemoglobin 11.6 g/dl (12.0-16.0); Mean Corpuscular HGB Conc 32.3 g/dl (31.0-35.0); Mean Corpuscular Hemoglobin 27.6 pg (27.0-33.0); Mean Corpuscular Volume 85.3 fL (80.0-98.0); Mean Platelet Volume 9.6 fL (9.4-12.3); Platelet Count 330 X10*3/uL (160-400); Red Blood Count 4.21 X10*6/uL (4.20-5.50); Red Cell Distribution Width 12.7 % (11.0-16.0); White Blood Count 7.4 X10*3/uL (4.8-10.8)
[2024-07-14 11:09] LABS: Alanine Aminotransferase 15 U/L (0-31); Albumin Level 4.3 g/dL (3.5-5.0); Alkaline Phosphatase 54 U/L (39-117); Anion Gap 13 (12-20); Aspartate Amino Transferase 14 U/L (5-31); Bilirubin Total 0.5 mg/dL (0.0-1.0); Blood Urea Nitrogen 17 mg/dL (9-16); Carbon Dioxide 25 mmol/L (22-29); Chloride 105 mmol/L (96-108); Cholesterol 120 mg/dL (<200); Estimated Glomerular Filt Rate 57; Glucose Fasting 228 mg/dL (60-99); HDL Cholesterol 38 mg/dL (>40); LDL Cholesterol Calculated 61 mg/dL (<100); Sodium 139 mmol/L (135-145); Total Protein 7.6 g/dL (6.5-8.0); Triglycerides 105 mg/dL (<150)
== END 2024-07-14 09:26 | disposition home or self-care (01) ==
LOC: HO.LAB 09:25
PROVIDERS: PCP Physician Assistant; Visit Provider Physician Assistant
DX: K21.9 Gastro-esophageal reflux disease without esophagitis (principal); E78.2 Mixed hyperlipidemia
CPT/HCPCS: 36415; 80053; 80061; 85027

== ENCOUNTER 2024-07-15 15:22 | Outpatient (AMB) | payer OTHER, SELFPAY ==
[2024-07-15 15:41] VITALS: BP 126/70; PULSE 100; O2SAT 97; BMI 28.2
--- NOTE | 2024-07-15 15:41 | A.OFFPC_ITS ---
Vital Signs 07/15/24 15:41 Height 5 ft 4 in Weight 164 lb 8 oz BMI 28.2 BP 126/70 Blood Pressure Location Lt brachial Position Sitting Pulse 100 Pulse Source Pulse Oximeter Pulse Oximetry (%) 97 Oxygen Delivery Method Room Air Intake Visit Reasons: Follow Up type 2 diabetes Ethics Instructor Required: No Accompanied by: Self / Same As Patient Allergies dicyclomine [From BENTYL] Allergy (Unknown, Verified 07/15/24 15:53) HIVES hydrocodone [HYDROCODONE] Allergy (Unknown, Verified 07/15/24 15:53) UNKNOWN ibuprofen [From MOTRIN] Allergy (Unknown, Verified 07/15/24 15:53) HIVES Iodinated Contrast Media [IV CONTRAST] Allergy (Unknown, Verified 07/15/24 15:53) ITCHING minocycline [MINOCYCLINE] Allergy (Unknown, Verified 07/15/24 15:53) UNK morphine [MORPHINE] Allergy (Unknown, Verified 07/15/24 15:53) UNKNOWN naproxen [NAPROXEN] Allergy (Unknown, Verified 07/15/24 15:53) UNKOWN peanut [PEANUT] Allergy (Unknown, Verified 07/15/24 15:53) HIVES sulfamethoxazole [From BACTRIM] Allergy (Unknown, Verified 07/15/24 15:53) UNKNOWN tramadol [TRAMADOL] Allergy (Unknown, Verified 07/15/24 15:53) UNK trimethoprim [From BACTRIM] Allergy (Unknown, Verified 07/15/24 15:53) UNKNOWN lisinopril Allergy (Verified 07/15/24 15:53) Abdominal Pain metronidazole [From Flagyl] Allergy (Verified 07/15/24 15:53) Hives amitriptyline [AMITRIPTYLINE] Adverse Reaction (Mild, Verified 07/15/24 15:53) HYPER metoclopramide [From REGLAN] Adverse Reaction (Mild, Verified 07/15/24 15:53) HYPER latex [LATEX] Adverse Reaction (Unknown, Verified 07/15/24 15:53) RASH phenylephrine [PHENYLEPHRINE] Adverse Reaction (Unknown, Verified 07/15/24 15:53) UNKNOWN promethazine [From PHENERGAN] Adverse Reaction (Unknown, Verified 07/15/24 15:53) UNK SHELLFISH Allergy (Unknown, Uncoded 07/15/24 15:53) HIVES Medication List - Last Reconciled 07/15/24 by Celso Mathur PA-C atorvastatin 40 mg PO DAILY blood sugar diagnostic (FreeStyle Test strips) As directed blood-glucose meter (FreeStyle [place] Lite kit) As directed diphenhydramine HCl (Allergy (diphenhydramine)) 50 mg (2 x 25 mg) PO DIRECTED epinephrine (EpiPen 2-Rashard) 0.3 mg (0.3 mL) IM Q4H PRN 30 days lancets (FreeStyle Lancets) As directed lorazepam 0.5 mg PO DAILY 5 days losartan 50 mg PO DAILY 90 days metformin ER 1,000 mg (2 x 500 mg) PO BID 90 days polyethylene glycol 3350 (HealthyLax) 17 grams PO DAILY PRN rabeprazole 20 mg PO DAILY sodium,potassium,mag sulfates 17.5-3.13-1.6 gram (Suprep Bowel Prep Kit) DILUTE; drink 1/2 at 6-8 pm and half at 11 PM- 1AM sucralfate 1 g PO BID triamcinolone acetonide 0.1% 1 appl topical DAILY 15 days Tobacco use date assessed: 01/20/24 Fall risk assessment: No Falls in past year Last assessed Fall Risk: 07/15/24 Dental Screening Dental Screen Date: 01/20/24 HPI Follow Up type 2 diabetes HPI Details Patient is a 68-year-old female here today for follow-up visit..? Patient has a past medical history significant for DMII/ HTN, HLD. Concern--> she is interested in getting a referral to an ENT specialist as she is has nasal congestion and has been told in the past she has nasal polyps that needed to be removed. .. DMII:? Patient continues on metformin 1000 b.i.d.. She is stopped Trulicity as she reports losing too much weight. At this time she is not interested in an alternative GLP 1 as she is concerned about side effects. She does report at home blood sugars have been above 200.? Today's A1c elevated PLAN: Will add on glipizide as an additional oral antihyperglycemic. ? .. HTN :? DOes check her BP at home and report 120s systiolic. Blood pressure today in office acceptable. ,, Hyperlipidemia:? Patient's most recent lipid panel acceptable with LDL below 100. Laboratory Tests 05/02/22 04/17/2323 08:14 08:11 09:15 RBC Hgb Creatinine Random Glucose Fasting Glucose 153 H 127 H Hemoglobin A1c % 7.6 6.5 H Cholesterol LDL Cholesterol, C alc 53 12/05/23 04/19/24 07/14/24 10:35 08:29 09:45 RBC 4.81 Hgb 11.6 L Creatinine 0.93 0.97 Random Glucose 148 H Fasting Glucose 204 H 228 H Hemoglobin A1c % 8.5 H Cholesterol 120 LDL Cholesterol, C alc [facility] Medical History HTN (hypertension) Migraine GERD (gastroesophageal reflux disease) Diabetes Surgical History Hx of colonoscopy History of esophagogastroduodenoscopy (EGD) S/P carpal tunnel release Family History Maternal Grandmother Colon cancer Social History Housing: Apartment Alcohol intake: never Patient Tobacco Use Status: Never used Tobacco e-Cigarette/Vaping Use: Never Used Second Hand Smoke Exposure: No Advance Directives Date on File: 04/25/23 service: No Current occupational status: disabled Cognitive needs: No Hearing needs: No Vision needs: No Questionnaire Thrive Questionnaire Date Thrive assessed: 01/20/24 CAMILLE-7 AMB Questionnaire CAMILLE-7 Date CAMILLE - 7 assessed: 01/20/24 Source: Developed by Drs. Tawanda Flores, Aparna Potter, Joon Adair and colleagues, with an educational sacha from [email or web address]. Review of Systems Const Denies headache(s) Eyes Denies loss of vision ENT Denies vertigo, Denies dizziness, Denies headache(s) and Denies sore throat Card Denies chest pain, Denies leg edema and Denies lightheadedness Resp Denies cough, Denies hemoptysis and Denies wheezing GI Denies abdominal pain, Denies melena, Denies constipation, Denies diarrhea and Denies vomiting Denies urinary frequency, Denies dysuria and Denies urinary urgency Musc Denies arthralgias, Denies joint swelling, Denies numbness and Denies tingling Neuro Denies Abnormal speech present, Denies behavioral changes, Denies vertigo, Denies dizziness, Denies headache(s), Denies loss of vision, Denies memory loss, Denies numbness and Denies tingling Psych Denies anxiety, Denies behavioral changes, Denies depression, Denies memory loss and Denies panic attacks Pawan/Lymph Denies easy bleeding and Denies easy bruising Aller/Immun Denies wheezing Physical exam (Primary Care) Vital Signs: Last Vital Signs Pulse 100 07/15/24 15:41 BP 126/70 07/15/24 15:41 Pulse Ox 97 07/15/24 15:41 Oxygen Delivery Method Room Air 07/15/24 15:41 BMI result Body Mass Index 28.2 Tobacco/Smoking Status: Tobacco use Status Tobacco use date assessed 01/20/24 07/15/24 15:43 Patient Tobacco Use Status Never used Tobacco 07/15/24 15:43 e-Cigarette/Vaping Use Never Used 07/15/24 15:43 Thrive Assessment: Date of Thrive Assessment Date Thrive assessed 01/20/24 07/15/24 15:43 Const General: healthy appearing, no acute distress, alert and awake Nutritional Appearance: well nourished Orientation/consciousness: oriented to person, oriented to place and oriented to time HENMT Ears: TM's normal bilaterally General nose exam: Normal nasal mucous membranes and turbinates present Eyes Conjunctivae: conjunctivae normal Sclerae: sclerae normal Pupils: Equal, round and reactive pupils present Neck Neck: Yes no lymphadenopathy and Yes no JVD Thyroid: Thyroid normal Carotids: no bruits Resp Effort & Inspection: normal respiratory effort and not tachypneic Auscultation: no crackles, no rales, no rhonchi and no wheezes Cardio Rate: regular rate Rhythm: regular rhythm Heart sounds: no murmurs and normal S1 and S2 GI Palpation (GI): Soft to palpation, nontender, no hepatomegaly and no splenomegaly Auscultation: normal bowel sounds Skin General skin exam: no rashes or lesions noted and dry skin Neuro General: oriented to person, oriented to place and oriented to time Cranial nerves: Yes Equal, round and reactive pupils present Speech: No Abnormal speech present Gait exam (Neuro): Normal gait present Motor exam (neuro): no tremor noted Extrem Right upper extremity: full ROM Left upper extremity: full ROM Right lower extremity: full ROM; no edema Left lower extremity: full ROM; no edema Psych Mental Status: mental status grossly normal Speech and movement: Normal speech and movement present Affect: normal affect Attitude: cooperative Thought process: Normal thought process present Results AMB Hemoglobin A1c AMB Hemoglobin A1c 8.9 % Last Edit by ANDER Duque on 07/15/24 15:52 Results Reviewed Results Reviewed: Laboratory Last Values Hgb A1c (Clinic) 8.9 % (4.0-6.0) H 07/15/24 15:52 Assessment and Plan Assessment & Plan (1) DMII (diabetes mellitus, type 2): Code(s): E11.9 - Type 2 diabetes mellitus without complications Qualifiers: Diabetes mellitus complication status: with hyperglycemia 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 A1c now 8.9. Was on Trulicity which was helping her hyperglycemia though had too much weight loss for patient. Please not interested in alternative GLP 1 at this time due to fears of side effects. Will consider Marquisero She has been on med warm and a 1000 b.i.d. though sugars continued decline. She is willing to add on glipizide for better glycemic control. Goal A1c to be below 7.0 (2) HTN (hypertension): Code(s): I10 - Essential (primary) hypertension Qualifiers: Hypertension type: primary hypertension Qualified Code(s): I10 - Essential (primary) hypertension Plan: Patient's blood pressure acceptable today in office. Will continue her current dose of anti hyper pensive medication with goal blood pressure remain below 140/90 (3) HLD (hyperlipidemia): Code(s): E78.5 - Hyperlipidemia, unspecified Qualifiers: Hyperlipidemia type: mixed hyperlipidemia Qualified Code(s): E78.2 - Mixed hyperlipidemia Plan: Most recent lipid panel acceptable. Will continue statin therapy at current dose. Goal LDL to remain below 100. (4) GERD (gastroesophageal reflux disease): Code(s): K21.9 - Gastro-esophageal reflux disease without esophagitis Qualifiers: Esophagitis bleeding: without hemorrhage Esophagitis presence: with esophagitis Qualified Code(s): K21.00 - Gastro-esophageal reflux disease with esophagitis, without bleeding Plan: Patient followed by gastroenterology. Continues on PPI therapy with decent affect. Continues to have chronic abdominal pain and is due for CT of her abdomen for further evaluation. (5) Vaginal cyst: Code(s): N89.8 - Other specified noninflammatory disorders of vagina Plan: Patient seen by [facility] gynecological assistant though did not have a good office visit. Would like a 2nd opinion at [facility] gynecological assistant in regards to her vaginal cyst. (6) Nasal polyp: Code(s): J33.9 - Nasal polyp, unspecified Orders: Orders AMB Hemoglobin A1c 07/15/24 E11.65 - Type 2 diabetes mellitus with hyperglycemia Referrals BUSINESS CONTINUITY CONSULTANT Referral N89.8 - Other specified noninflammatory disorders of vagina Ear/Nose/Throat Referral J33.9 - Nasal polyp, unspecified Medications: New glipizide ER 2.5 mg PO DAILY 30 days 30 tabs 2RF E11.65 - Type 2 diabetes mellitus with hyperglycemia Coding Level of Care Code Est Pt Level 4 (37588) Diagnoses Type 2 diabetes mellitus with hyperglycemia, without long-term current use of insulin E11.65 Diabetes mellitus complication status: with hyperglycemia 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
== END 2024-07-15 16:13 | disposition home or self-care (01) ==
PROVIDERS: PCP Physician Assistant; Visit Provider Physician Assistant
DX: E11.65 Type 2 diabetes mellitus with hyperglycemia (principal)
CPT/HCPCS: 83036; 99214

== ENCOUNTER 2024-08-02 13:43 | Outpatient (AMB) | payer OTHER, SELFPAY ==
[2024-08-02 13:47] VITALS: BP 132/80; PULSE 91; O2SAT 98; BMI 28.3
--- NOTE | 2024-08-02 13:47 | A.OFFPC_ITS ---
Vital Signs 08/02/24 13:47 Height 5 ft 4 in Weight 165 lb BMI 28.3 BP 132/80 Blood Pressure Location Lt brachial Position Sitting Pulse 91 Pulse Source Pulse Oximeter Pulse Oximetry (%) 98 Oxygen Delivery Method Room Air Intake Visit Reasons: [facility] 07/29 Paresthesia Intake Note: Patient is here for hospital discharge follow up. Patient was discharged from [facility] on 07/27/24 Flash Developer Required: No Allergies dicyclomine [From BENTYL] Allergy (Unknown, Verified 08/02/24 14:07) HIVES hydrocodone [HYDROCODONE] Allergy (Unknown, Verified 08/02/24 14:07) UNKNOWN ibuprofen [From MOTRIN] Allergy (Unknown, Verified 08/02/24 14:07) HIVES Iodinated Contrast Media [IV CONTRAST] Allergy (Unknown, Verified 08/02/24 14:07) ITCHING minocycline [MINOCYCLINE] Allergy (Unknown, Verified 08/02/24 14:07) UNK morphine [MORPHINE] Allergy (Unknown, Verified 08/02/24 14:07) UNKNOWN naproxen [NAPROXEN] Allergy (Unknown, Verified 08/02/24 14:07) UNKOWN peanut [PEANUT] Allergy (Unknown, Verified 08/02/24 14:07) HIVES sulfamethoxazole [From BACTRIM] Allergy (Unknown, Verified 08/02/24 14:07) UNKNOWN tramadol [TRAMADOL] Allergy (Unknown, Verified 08/02/24 14:07) UNK trimethoprim [From BACTRIM] Allergy (Unknown, Verified 08/02/24 14:07) UNKNOWN lisinopril Allergy (Verified 08/02/24 14:07) Abdominal Pain metronidazole [From Flagyl] Allergy (Verified 08/02/24 14:07) Hives glipizide Adverse Reaction (Intermediate, Verified 08/02/24 14:11) neuropathy amitriptyline [AMITRIPTYLINE] Adverse Reaction (Mild, Verified 08/02/24 14:07) HYPER metoclopramide [From REGLAN] Adverse Reaction (Mild, Verified 08/02/24 14:07) HYPER latex [LATEX] Adverse Reaction (Unknown, Verified 08/02/24 14:07) RASH phenylephrine [PHENYLEPHRINE] Adverse Reaction (Unknown, Verified 08/02/24 14:07) UNKNOWN promethazine [From PHENERGAN] Adverse Reaction (Unknown, Verified 08/02/24 14:07) UNK SHELLFISH Allergy (Unknown, Uncoded 08/02/24 14:07) HIVES Medication List - Last Reconciled 08/02/24 by Celso Mathur PA-C atorvastatin 40 mg PO DAILY blood sugar diagnostic (FreeStyle Test strips) As directed blood-glucose meter (FreeStyle [place] Lite kit) As directed diphenhydramine HCl (Allergy (diphenhydramine)) 50 mg (2 x 25 mg) PO DIRECTED epinephrine (EpiPen 2-Rashard) 0.3 mg (0.3 mL) IM Q4H PRN 30 days lancets (FreeStyle Lancets) As directed lorazepam 0.5 mg PO DAILY 5 days losartan 50 mg PO DAILY 90 days metformin ER 1,000 mg (2 x 500 mg) PO BID 90 days polyethylene glycol 3350 (HealthyLax) 17 grams PO DAILY PRN rabeprazole 20 mg PO DAILY sodium,potassium,mag sulfates 17.5-3.13-1.6 gram (Suprep Bowel Prep Kit) DILUTE; drink 1/2 at 6-8 pm and half at 11 PM- 1AM sucralfate 1 g PO BID triamcinolone acetonide 0.1% 1 appl topical DAILY 15 days Tobacco use date assessed: 01/20/24 Fall risk assessment: No Falls in past year Last assessed Fall Risk: 08/02/24 Dental Screening Dental Screen Date: 01/20/24 HPI [facility] 07/29 Paresthesia HPI Details Patient is a 68-year-old female here today for an ER follow-up visit. Patient was seen at the ER for numbness and tingling in her hands feet and face after starting glipizide. She reports the glipizide did help her sugars a bit though she reports the presumed side effect is intolerable Workup was essentially normal. She has stopped glipizide though has been left still with some burning-type pain in her hands and feet. She is interested in trying a medication to help her with her neuropathic type pain. [facility] Medical History HTN (hypertension) Migraine GERD (gastroesophageal reflux disease) Diabetes Surgical History Hx of colonoscopy History of esophagogastroduodenoscopy (EGD) S/P carpal tunnel release Family History Maternal Grandmother Colon cancer Social History Housing: Apartment Alcohol intake: never Patient Tobacco Use Status: Never used Tobacco e-Cigarette/Vaping Use: Never Used Second Hand Smoke Exposure: No Advance Directives Date on File: 04/25/23 service: No Current occupational status: disabled Cognitive needs: No Hearing needs: No Vision needs: No Questionnaire Thrive Questionnaire Date Thrive assessed: 01/20/24 AUDIT C Alcohol Use Questionnaire (AUDIT-C) 1. How often do you have a drink containing alcohol?: Never 2. How many drinks containing alcohol do you have on a typical day when you are drinking?: 1 or 2 3. How often do you have six or more drinks on one occasion?: Never Total Score: 0 CAMILLE-7 AMB Questionnaire CAMILLE-7 Date CAMILLE - 7 assessed: 01/20/24 Source: Developed by Drs. Tawanda Flores, Aparna Potter, Joon Adair and colleagues, with an educational sacha from [employer]. Review of Systems Const Denies headache(s) Eyes Denies loss of vision ENT Denies vertigo, Denies dizziness, Denies headache(s) and Denies sore throat Card Denies chest pain, Denies leg edema and Denies lightheadedness Resp Denies cough, Denies hemoptysis and Denies wheezing GI Denies abdominal pain, Denies melena, Denies constipation, Denies diarrhea and Denies vomiting Denies urinary frequency, Denies dysuria and Denies urinary urgency Musc Denies arthralgias, Denies joint swelling, Denies numbness and Denies tingling Neuro Denies Abnormal speech present, Denies behavioral changes, Denies vertigo, Denies dizziness, Denies headache(s), Denies loss of vision, Denies memory loss, Denies numbness and Denies tingling Psych Denies anxiety, Denies behavioral changes, Denies depression, Denies memory loss and Denies panic attacks Pawan/Lymph Denies easy bleeding and Denies easy bruising Aller/Immun Denies wheezing Physical exam (Primary Care) Vital Signs: Last Vital Signs Pulse 91 08/02/24 13:47 BP 132/80 08/02/24 13:47 Pulse Ox 98 08/02/24 13:47 Oxygen Delivery Method Room Air 08/02/24 13:47 BMI result Body Mass Index 28.3 Tobacco/Smoking Status: Tobacco use Status Tobacco use date assessed 01/20/24 08/02/24 13:50 Patient Tobacco Use Status Never used Tobacco 08/02/24 13:50 e-Cigarette/Vaping Use Never Used 08/02/24 13:50 Thrive Assessment: Date of Thrive Assessment Date Thrive assessed 01/20/24 08/02/24 13:50 Const General: healthy appearing, no acute distress, alert and awake Nutritional Appearance: well nourished Orientation/consciousness: oriented to person, oriented to place and oriented to time HENMT Ears: TM's normal bilaterally General nose exam: Normal nasal mucous membranes and turbinates present Eyes Conjunctivae: conjunctivae normal Sclerae: sclerae normal Pupils: Equal, round and reactive pupils present Neck Neck: Yes no lymphadenopathy and Yes no JVD Thyroid: Thyroid normal Carotids: no bruits Resp Effort & Inspection: normal respiratory effort and not tachypneic Auscultation: no crackles, no rales, no rhonchi and no wheezes Cardio Rate: regular rate Rhythm: regular rhythm Heart sounds: no murmurs and normal S1 and S2 GI Palpation (GI): Soft to palpation, nontender, no hepatomegaly and no splenomegaly Auscultation: normal bowel sounds Skin General skin exam: no rashes or lesions noted and dry skin Neuro General: oriented to person, oriented to place and oriented to time Cranial nerves: Yes Equal, round and reactive pupils present Speech: No Abnormal speech present Gait exam (Neuro): Normal gait present Motor exam (neuro): no tremor noted Extrem Right upper extremity: full ROM Left upper extremity: full ROM Right lower extremity: full ROM; no edema Left lower extremity: full ROM; no edema Psych Mental Status: mental status grossly normal Speech and movement: Normal speech and movement present Affect: normal affect Attitude: cooperative Thought process: Normal thought process present Assessment and Plan Assessment & Plan (1) Side effect of drug: Code(s): T88.7XXA - Unspecified adverse effect of drug or medicament, initial encounter Plan: Patient's seem to have had side effects to glipizide will discontinue his medication. Patient willing to transition to alternative GLP 1 for glycemic control (2) Neuropathic pain: Code(s): M79.2 - Neuralgia and neuritis, unspecified Plan: Patient reporting burning and pain in her hands and feet. She is willing to try gabapentin for neuropathic type pain. Orders: Orders 2 Magnesium Today M79.2 - Neuralgia and neuritis, unspecified Basic Metabolic Panel Today M79.2 - Neuralgia and neuritis, unspecified Medications: New gabapentin 100 mg PO BID 15 days 30 caps 0RF M79.2 - Neuralgia and neuritis, unspecified tirzepatide (Mounjaro) for 4 weeks 2.5 mg (0.5 mL) subcut QWEEK 4 weeks 2 mL 0RF E11.65 - Type 2 diabetes mellitus with hyperglycemia Coding Level of Care Code Est Pt Level 3 (06531) Diagnoses Side effect of drug T88.7XXA Neuropathic pain M79.2
== END 2024-08-02 14:57 | disposition home or self-care (01) ==
PROVIDERS: PCP Physician Assistant; Visit Provider Physician Assistant
DX: M79.2 Neuralgia and neuritis, unspecified (principal); T88.7XXA Unspecified adverse effect of drug or medicament, initial encounter

== ENCOUNTER 2024-08-02 13:43 | Outpatient (REF) | payer OTHER, SELFPAY ==
[2024-08-02 15:31] LABS: Anion Gap 16 (12-20); Blood Urea Nitrogen 17 mg/dL (9-16); Calcium 10.2 mg/dL (8.4-10.2); Carbon Dioxide 22 mmol/L (22-29); Chloride 107 mmol/L (96-108); Estimated Glomerular Filt Rate 51; Glucose Random 206 mg/dL (60-115); Magnesium 1.5 mg/dL (1.6-2.6); Sodium 141 mmol/L (135-145)
== END 2024-08-02 13:44 | disposition home or self-care (01) ==
LOC: HO.LAB 13:43
PROVIDERS: PCP Physician Assistant; Visit Provider Physician Assistant
DX: M79.2 Neuralgia and neuritis, unspecified (principal)
CPT/HCPCS: 36415; 80048; 83735; 99212

== ENCOUNTER 2024-08-12 06:55 | Emergency (ER) | payer OTHER, SELFPAY ==
--- NOTE | ~2024-08-12 | XR_ITS ---
EXAMINATION: XR KNEE, RIGHT XR KNEE, LEFT CLINICAL INFORMATION: Right and left knee pain. COMPARISON: None available. TECHNIQUE: AP, tunnel, lateral, and sunrise views of the right and left knee. FINDINGS: Right knee: No acute fracture or dislocation. No significant joint space narrowing or marginal osteophytes. Mild medial and lateral compartment chondrocalcinosis. Superior patellar enthesophyte. No joint effusion. No concerning lytic or blastic osseous lesion. Left knee: No acute fracture or dislocation. No significant joint space narrowing. Tiny tricompartmental marginal osteophytes. Medial and lateral compartment chondrocalcinosis. Trace joint effusion. Superior and inferior patellar enthesophytes. No osseous erosion. XR/XR knee RT 4V IMPRESSION: RIGHT KNEE: Mild medial and lateral compartment chondrocalcinosis. LEFT KNEE: 1. Mild tricompartmental osteoarthritis. Medial and lateral compartment chondrocalcinosis. Trace joint effusion. 2. No acute osseous abnormality. Electronically signed by: Niraj Price MD 08/12/2024 10:55 AM EDT
--- NOTE | ~2024-08-12 | XR_ITS ---
EXAMINATION: XR KNEE, RIGHT XR KNEE, LEFT CLINICAL INFORMATION: Right and left knee pain. COMPARISON: None available. TECHNIQUE: AP, tunnel, lateral, and sunrise views of the right and left knee. FINDINGS: Right knee: No acute fracture or dislocation. No significant joint space narrowing or marginal osteophytes. Mild medial and lateral compartment chondrocalcinosis. Superior patellar enthesophyte. No joint effusion. No concerning lytic or blastic osseous lesion. Left knee: No acute fracture or dislocation. No significant joint space narrowing. Tiny tricompartmental marginal osteophytes. Medial and lateral compartment chondrocalcinosis. Trace joint effusion. Superior and inferior patellar enthesophytes. No osseous erosion. XR/XR knee LT 4V IMPRESSION: RIGHT KNEE: Mild medial and lateral compartment chondrocalcinosis. LEFT KNEE: 1. Mild tricompartmental osteoarthritis. Medial and lateral compartment chondrocalcinosis. Trace joint effusion. 2. No acute osseous abnormality. Electronically signed by: Niraj Price MD 08/12/2024 10:55 AM EDT
[2024-08-12 06:58] VITALS: BP 157/92; PULSE 88; RESP 20; TEMP 36; O2SAT 97; BMI 28.3
[2024-08-12 07:19] LABS: MANUAL DIFF FLAG NO
[2024-08-12 07:20] LABS: Basophils Absolute Auto 0.1 X10*3/uL (0.0-0.2); Basophils Percent Auto 0.8 % (0-2); Eosinophils Absolute Auto 0.4 X10*3/uL (0.0-0.4); Eosinophils Percent Auto 3.5 % (0-4); Hematocrit 35.7 % (37.0-47.0); Hemoglobin 11.6 g/dl (12.0-16.0); Imm Gran Abs Auto 0.04 X10*3/uL (0.00-0.03); Imm Gran Pct Auto 0.4 % (0.0-0.4); Lymphocytes Percent Auto 19.4 % (20-40); Mean Corpuscular HGB Conc 32.5 g/dl (31.0-35.0); Mean Corpuscular Hemoglobin 27.5 pg (27.0-33.0); Mean Corpuscular Volume 84.6 fL (80.0-98.0); Mean Platelet Volume 9.2 fL (9.4-12.3); Monocytes Absolute Auto 0.6 X10*3/uL (0.1-1.2); Monocytes Percent Auto 6.1 % (2-11); Neutrophils Absolute Auto 7.1 x10*3/uL (2.0-8.3); Neutrophils Percent Auto 69.8 % (45-73); Platelet Count 332 X10*3/uL (160-400); Red Blood Count 4.22 X10*6/uL (4.20-5.50); Red Cell Distribution Width 12.8 % (11.0-16.0); White Blood Count 10.2 X10*3/uL (4.8-10.8)
[2024-08-12 07:36] LABS: Anion Gap 18 (12-20); Blood Urea Nitrogen 20 mg/dL (9-16); Carbon Dioxide 20 mmol/L (22-29); Chloride 104 mmol/L (96-108); Creatinine Clr Calc Pharmacy 55.9; Estimated Glomerular Filt Rate 59; Glucose Random 152 mg/dL (60-115); Sodium 138 mmol/L (135-145)
--- OUTSIDE RECORDS SUMMARY | 2024-08-12 07:37 | XMS_ITS | Continuity of Care Document ---
Author Organization [facility] Address [address] [place] [address]- Care Team Providers Care Commercial Maintenance Technician Name Role Phone Celso Corbin Primary Care Physician [phone] Encounter [facility] Date(s): 07/29/24 - 07/29/[address] [address]- Discharge Disposition: A-D/C Home Attending Physician: Yousif FORTE, Virgil Fuentes Admitting Physician: Yousif FORTE, Virgil Fuentes Referring Physician: Not on Staff, Referring MD Allergies, Adverse Reactions, Alerts Substance Reaction Severity Status ibuprofen hives Active naproxen Active trimethoprim Active Peanuts Active minocycline Active dicyclomine Active Latex Active amitriptyline Active metoclopramide Active morphine Active Motrin Active Bactrim Active phenylephrine Active sulfa drugs Active shellfish Active Bentyl Active Phenergan Active Reglan Active Contrast Dye Active Milk Products Active HYDROcodone Active Zinc Active traMADol Active oxyCODONE Active Immunizations Given and Recorded Vaccine Date Status Refusal Reason [id number] bivalent booster vax 09/12/22 Recorded influenza virus [...] # 90 tablet, 2 Refills, [id number], 160.2, cm, 05/23/21 13:16:00 EDT, Height Start [...] Refills, Maintenance, 08/27/23 11:56:00 EDT, [id number], 160, cm, 01/21/23 11:34:00 EDT, Height, 76.9, kg, 07/05/22 7:08:00 EDT, Dry Weight Start Date: 08/27/23 Status: Ordered GlipiZIDE By Mouth, Daily, 0 Refills, Maintenance, 07/29/24 11:46:00 EDT, Partial fill upon patient request if the prescription is for a schedule II opioid drug. Start Date: 07/29/24 Status: Ordered losartan 50 mg oral tablet 50 mg, 1, tablet, By Mouth, Daily, # 30 tablet, Refills 0, Tot. Refills 0, Maintenance, 09/15/23 8:40:00 EST, Route to Pharmacy Electronically, [facility]/pharmacy #[id number], Partial fill upon patient request if the prescription is for a schedule II opioid drug.... Start Date: 09/15/23 Status: Ordered MetFORMIN (Eqv-Glucophage XR) 500 mg oral tablet, extended release 2 tablet, By Mouth, Daily, PLEASE HAVE LABS DRAWN FOR ADDITIONAL REFILLS, # 180 tablet, 0 Refills, Maintenance, 01/10/24 8:55:00 EST, [facility]/pharmacy #[id number], 163, cm, 11/29/23 18:52:00 EST, [...] A DAY Start Date: 11/27/23 Status: Ordered Problem List Condition Confirmation Course [...] to oldest [Reference Range]: 1 2 Height 164 cm (07/29/24 11:45 AM) Weight 75.7 kg (07/29/24 11:45 AM) Oxygen Saturation [94-100 %] 99 % (07/29/24 3:39 PM) 99 % (07/29/24 11:44 AM) Pulse Rate [55-90 bpm] 98 bpm *H* (07/29/24 3:39 PM) 95 bpm *H* (07/29/24 11:44 AM) Blood Pressure [90-138/55-84 mm Hg] 150/ 94mm Hg *H* (07/29/24 3:39 PM) 134/78mm Hg (07/29/24 11:45 AM) Respiratory Rate [16-30 br/min] 18 br/mi n (07/29/24 3:39 PM) 16 br/min (07/29/24 11:45 AM) Temperature [96.8-100.4 DegF] 98.6 DegF (07/29/24 11:45 AM) Mode of Delivery (Oxygen) Room air (07/29/24 3:39 PM) Room air (07/29/24 11:44 AM) Blood pressure sites Arm, left (07/29/24 3:39 PM) Arm, left (07/29/24 11:45 AM) Dry Weight 75.7 kg (07/29/24 11:45 AM) Dry Weight Obtained Via Standing scale (07/29/24 11:45 AM) Social History Social History Type Response Smoking Status Never (less than 100 in lifetime); Tobacco user in household: No entered on: 12/09/18 Sex Note * Bijal Gonzáles: PERFORM Event Display: Patient Education Leaflets Authored Date: [id number] Paresthesia ?? [id number] Paresthesia Paresthesia is a burning or prickling feeling that's sometimes felt in the hands, arms, legs or feet. It can also occur in other parts of the body. It can also feel like tingling or numbness, skin crawling, or itching. The feeling is not comfortable, but it's not painful. (The pins and needles feeling that happens when a foot or hand falls asleep is a temporary paresthesia.) Paresthesias that last or come and go may be caused by medical issues that need to be treated. These include stroke, a bulging disk pressing on a nerve, a trapped nerve, vitamin deficiencies, uncontrolled diabetes, alcohol abuse, or even certain medicines. Tests are often done. These tests may include blood tests, X-ray, CT scan, nerve conduction studies(NCS), or a muscle test (electromyography). Depending on the cause, treatment may include physical therapy. Home care ??? Tell your healthcare provider about all medicines you take. This includes prescription and [id number] medicines, vitamins, and herbs. Ask if any of the medicines may be causing your problems. Don't make any changes to prescription medicines without talking to your healthcare provider first. ??? You may be prescribed medicines to help relieve the tingling feeling or for pain. Take all medicines as directed. ??? A numb hand or foot may be more prone to injury. To help protect it: o Always use oven mitts. o Test water with an unaffected hand or foot. o Use caution when trimming nails. File sharp areas. o Wear shoes that fit well to avoid pressure points, blisters, and ulcers. o Inspect your hands and feet carefully (including the soles of your feet and between your toes) daily. If you see red areas, sores, or other problems, tell your healthcare provider. ?? Follow-up care Follow up with your healthcare provider, or as advised. You may need more testing or evaluation. ?? When to get medical advice Call your healthcare provider right away if any of these occur: ??? Severe headache, fainting spell, dizziness, or seizure ??? Chest, arm, neck, or upper back pain ??? Loss of bladder or bowel control ??? Open wound with redness, swelling, or pus ?? Call 911 Paresthesia can be a sign of a stroke. If you have any of the following symptoms, or if someone youare with has these symptoms, call 911 as soon as possible[address] Never drive yourself or the victim. The ambulance can alert the hospital and start treatment. B.E. F.A.S.T. is an easy way to remember the signs of a stroke. When you see these signs, you will know that you need to call 911 fast. B.E. F.A.S.T. stands for: ??? B is for balance. Sudden loss of balance or coordination. ??? E is for eyes. Vision changes in one or both eyes. ??? F is for face drooping. One side of the face is drooping or numb. When the person smiles, the smile is uneven. ??? A is for arm weakness. One arm is weak or numb. When the person lifts both arms at the same time, one arm may drift downward. ??? S is for speech difficulty. You may notice slurred speech or difficulty speaking. The person can't repeat asimple sentence correctly when asked. ??? T is for time to dial 911. If someone shows any of these symptoms, even if they go away, call 911 right away. Make note of the time the symptoms first appeared. ?? Last Reviewed Date: 2021 ?? [phone] edo. All rights reserved. This information is not intended as a substitute for professional medical care. Always follow your healthcare professional's instructions. ?? Patient Care team information Care Team Personnel Name: Celso Corbin Position: Reference Physician Member Role: PCP Address: Address: [address] [place] [address]- Care Team Related Persons Name: GIOVANNA FLEMING Address: home [address] [place] [address] Name: GATITO VILLA Address: home [address] [place] [address] Name: ANAND VILLA Address: home [address] [place] [address]
--- NOTE | 2024-08-12 08:58 | ED.GENADULT ---
HPI - General Adult General Chief complaint: Extremity Problem Stated complaint: Burning sensation in bilateral knees Time Seen by Provider: 08/12/24 07:29 Source: patient and RN notes reviewed Mode of arrival: ambulatory Limitations: no limitations History of Present Illness ED Provider: Torrie Gautam PA-C HPI narrative: This is a 68-year-old female who presents emergency department with complaints of bilateral knee pain for the last 3 weeks. Patient denies any recent trauma or injury to her knees. No falls. She states that she has gradually had progressed worsening pain in her knees. She has been taking Tylenol which has provided her with some relief. She denies any fevers, chills, chest pain, shortness breath, abdominal pain, nausea, vomiting or diarrhea. No calf tenderness. MD complaint: Bilateral Knee pain Radiation: non-radiation Quality: aching Pain Consistency: constant Relieving factors: none Exacerbating factors: none Associated symptoms: denies other symptoms Treatments prior to arrival: none Related Data Previous Rx's ?Medication ?Instructions ?Recorded triamcinolone acetonide 0.1 % 1 appl topical DAILY 15 days #30 04/24/22 topical cream grams blood sugar diagnostic (FreeStyle #100 ea 02/27/23 Test strips) blood-glucose meter (FreeStyle #1 ea 02/27/23 Steward Lite kit) lancets 28 gauge (FreeStyle #100 ea 03/15/23 Lancets) epinephrine 0.3 mg/0.3 mL 0.3 mg (0.3 mL) IM Q4H PRN 03/25/23 injection, auto-injector (EpiPen anaphylaxis 30 days #2 ea 2-Rashard) polyethylene glycol 3350 17 gram 17 g PO DAILY PRN for constipation 12/03/23 oral powder packet (HealthyLax) #30 packets diphenhydramine HCl 25 mg tablet 50 mg (2 x 25 mg) PO DIRECTED 12/05/23 (Allergy (diphenhydramine)) #1 tab metformin 500 mg tablet,extended 1,000 mg (2 x 500 mg) PO BID 90 01/20/24 release 24 hr days #360 tabs sucralfate 1 gram tablet 1 g PO BID #180 tabs 03/08/24 sodium,potassium,mag sulfates 17.5 See Rx Instructions PO .COMPLEX 04/09/24 gram-3.13 gram-1.6 gram oral soln #354 mL (Suprep Bowel Prep Kit) lorazepam 0.5 mg tablet 0.5 mg PO DAILY anxiety 5 days #5 05/17/24 tabs atorvastatin 40 mg tablet 40 mg PO DAILY #90 tabs 06/16/24 losartan 50 mg tablet 50 mg PO DAILY 90 days #90 tabs 06/23/24 rabeprazole 20 mg tablet,delayed 20 mg PO DAILY #90 tabs 07/06/24 release gabapentin 100 mg capsule 100 mg PO BID 15 days #30 caps 08/02/24 magnesium 250 mg tablet 250 mg PO DAILY 30 days #30 tabs 08/02/24 tirzepatide 2.5 mg/0.5 mL 2.5 mg (0.5 mL) subcut QWEEK 4 08/02/24 subcutaneous pen injector weeks #2 mL (Mounjaro) Allergies Allergy/AdvReac Type Severity Reaction Status Date / Time dicyclomine [From BENTYL] Allergy Unknown HIVES Verified 08/12/24 07:01 hydrocodone [HYDROCODONE] Allergy Unknown UNKNOWN Verified 08/12/24 07:01 ibuprofen [From MOTRIN] Allergy Unknown HIVES Verified 08/12/24 07:01 Iodinated Contrast Media Allergy Unknown ITCHING Verified 08/12/24 07:01 [IV CONTRAST] minocycline [MINOCYCLINE] Allergy Unknown UNK Verified 08/12/24 07:01 morphine [MORPHINE] Allergy Unknown UNKNOWN Verified 08/12/24 07:01 naproxen [NAPROXEN] Allergy Unknown UNKOWN Verified 08/12/24 07:01 peanut [PEANUT] Allergy Unknown HIVES Verified 08/12/24 07:01 sulfamethoxazole Allergy Unknown UNKNOWN Verified 08/12/24 07:01 [From BACTRIM] tramadol [TRAMADOL] Allergy Unknown UNK Verified 08/12/24 07:01 trimethoprim [From BACTRIM] Allergy Unknown UNKNOWN Verified 08/12/24 07:01 lisinopril Allergy Abdominal Verified 08/12/24 07:01 Pain metronidazole [From Flagyl] Allergy Hives Verified 08/12/24 07:01 glipizide AdvReac Intermediate neuropathy Verified 08/12/24 07:01 amitriptyline [AMITRIPTYLINE] AdvReac Mild HYPER Verified 08/12/24 07:01 metoclopramide [From REGLAN] AdvReac Mild HYPER Verified 08/12/24 07:01 latex [LATEX] AdvReac Unknown RASH Verified 08/12/24 07:01 phenylephrine [PHENYLEPHRINE] AdvReac Unknown UNKNOWN Verified 08/12/24 07:01 promethazine [From PHENERGAN] AdvReac Unknown UNK Verified 08/12/24 07:01 SHELLFISH Allergy Unknown HIVES Uncoded 08/12/24 07:01 Review of Systems Review of Systems: Yes all other systems are reviewed and are negative Constitutional: Constitutional: Reports as per [facility] Past Medical History Attestation statement: The following information was validated with the patient. Medical History HTN (hypertension) Migraine GERD (gastroesophageal reflux disease) Diabetes Surgical History Hx of colonoscopy History of esophagogastroduodenoscopy (EGD) S/P carpal tunnel release Family History Family History Maternal Grandmother Colon cancer Social History Social History Housing: Apartment Alcohol intake: never Patient Tobacco Use Status: Never used Tobacco e-Cigarette/Vaping Use: Never Used Second Hand Smoke Exposure: No Advance Directives Date on File: 04/25/23 service: No Current occupational status: disabled Cognitive needs: No Hearing needs: No Vision needs: No Physical Exam ED Vital Signs: Vital Signs - 24 hr 08/12/24 06:58 08/12/24 11:53 Temperature 96.8 F 98.6 F Pulse Rate 88 88 Respiratory Rate 20 18 Blood Pressure 157/92 H 157/97 H Pulse Oximetry 97 98 Oxygen Delivery Method Room Air Room Air BMI result Body Mass Index 28.3 Const General: cooperative, comfortable and no acute distress Orientation/consciousness: patient oriented x3 Limitations: no limitations HENMT Head: Yes normal to inspection, Yes normocephalic and Yes atraumatic Ears: hearing grossly normal bilaterally General nose exam: Normal external nose present Face and sinus: Yes normal facial exam Mouth: Normal oral and palatal mucosa present, oropharynx normal and moist mucous membranes Throat: Yes posterior oropharynx normal Eyes General: appearance normal, both eyes and all related structures Eyelids: Yes eyelids normal Conjunctivae: conjunctivae normal Sclerae: sclerae normal Pupils: Equal, round and reactive pupils present EOM: EOMs intact bilaterally Neck Neck: Yes normal visual inspection, Yes full ROM and Yes no lymphadenopathy Lymphatic: no lymphadenopathy noted Chest Chest palpation & inspection: normal inspection of the chest Resp Effort & Inspection: normal respiratory effort and able to speak in complete sentences Auscultation: clear to auscultation bilaterally, no crackles, no rales, no rhonchi and no wheezes Cardio Rate: regular rate Rhythm: regular rhythm Heart sounds: S1 normal heart sound present and S2 normal heart sound present GI Inspection: Yes normal to inspection Skin General skin exam: no rashes or lesions noted Trauma: no lacerations or abrasions Wounds: no wounds Neuro General: patient oriented x3 and moves all extremities Cranial nerves: Yes Equal, round and reactive pupils present Extrem Other: Bilateral knees with tenderness to palpation along the medial and joint line, full range of motion. Strong DP pulse. No calf tenderness. No edema noted. Patient ambulatory with steady gait. General: Yes normal to inspection Right upper extremity: normal to inspection Left upper extremity: normal to inspection Right lower extremity: normal to inspection Left lower extremity: normal to inspection Course Reevaluation(s) Reevaluation #1: X-rays reviewed as mild try come apart mental osteoarthritis, discussed with patient. She is feeling much better she is ambulatory with steady gait. Given referral to Orthopedic. Given strict return precautions. Patient stable for discharge. Medications Administered Discontinued Medications Generic Name Dose Route Start Last Admin Trade Name Freq PRN Reason Stop Dose Admin Acetaminophen/Codeine Phosphate 1 tab 08/12/24 08:40 08/12/24 09:17 Acetaminophen/Codeine 300-30mg Tablet PO 08/12/24 08:41 1 tab ONCE ONE Administration Medical Decision Making Medical Decision Making [facility] Narrative: This is a 68-year-old female who presents to the emergency department with complaints of atraumatic bilateral knee pain for the last 2 weeks. Patient is ambulatory with steady gait. On arrival vital signs within normal limits, she is speaking in full sentences under no acute distress. Bilateral knees nonerythematous, nonedematous, with tenderness to palpation throughout the joint, full flexion and extension of the knee without difficulty. Differential diagnoses include osteoarthritis, arthralgia, ED test unlikely given no swelling calf pain, strain. Plan: X-rays Differential Diagnosis Differential Diagnoses: The differential diagnosis associated with the presentation includes See above Lab Data MDM Lab Attestation statement: I reviewed the patient's lab results. No leukocytosis, normocytic anemia noted with an H and H of 11.6/35.7, chemistry within normal limits. 08/12/24 07:14 08/12/24 07:14 Labs: Lab Results 08/12/24 Range/Units 07:14 WBC 10.2 (4.8-10.8) X10*3/uL RBC 4.22 (4.20-5.50) X10*6/uL Hgb 11.6 L (12.0-16.0) g/dl Hct 35.7 L (37.0-47.0) % MCV 84.6 (80.0-98.0) fL MCH 27.5 (27.0-33.0) pg MCHC 32.5 (31.0-35.0) g/dl RDW 12.8 (11.0-16.0) % Plt Count 332 (160-400) X10*3/uL MPV 9.2 L (9.4-12.3) fL Immature Gran % (Auto) 0.4 (0.0-0.4) % Neut % (Auto) 69.8 (45-73) % Lymph % (Auto) 19.4 L (20-40) % Ramsey % (Auto) 6.1 (2-11) % Eos % (Auto) 3.5 (0-4) % Baso % (Auto) 0.8 (0-2) % Lymph # (Auto) 2.0 (1.2-4.9) X10*3/uL Ramsey # (Auto) 0.6 (0.1-1.2) X10*3/uL Eos # (Auto) 0.4 (0.0-0.4) X10*3/uL Baso # (Auto) 0.1 (0.0-0.2) X10*3/uL Abs Immat Gran (auto) 0.04 H (0.00-0.03) X10*3/uL Absolute Neuts (auto) 7.1 (2.0-8.3) x10*3/uL Absolute Nucleated RBC 0.000 (0.0-0.012) X10*3/uL Nucleated RBC % (auto) 0.0 (0.0-0.2) /100WBC Sodium 138 (135-145) mmol/L Potassium 4.0 (3.3-5.1) mmol/L Chloride 104 (96-108) mmol/L Carbon Dioxide 20 L (22-29) mmol/L Anion Gap 18 (12-20) BUN 20 H (9-16) mg/dL Creatinine 0.94 (0.5-1.4) mg/dL Estim Creat Clear Calc 55.9 Estimated GFR 59 Random Glucose 152 H (60-115) mg/dL Calcium 10.0 (8.4-10.2) mg/dL Radiology Impression Discussion of test interpretation with radiology: I have reviewed the radiologist's reading. External Record Review External record reviewed: Inpatient record, Office record, Outpatient record, Prior outpatient labs, Prior outpatient radiology, Primary care record and Outside ED record Discharge Plan Discharge Clinical Impression: Bilateral knee pain Patient Disposition: Home, Self-Care Instructions: Knee Pain (ED), Arthralgia (ED) Additional Instructions: You have evidence osteoarthritis in your knees. Please continue taking Tylenol as directed as needed for pain. Please follow-up with your primary care physician regarding this visit. Gentle range of motion can also help with your symptoms. Heat or ice can also help. Please follow-up with the orthopedic team, call today to make an appointment. If any new or worsening symptoms occur including but not limited to worsening pain, fevers, chills, chest pain, shortness breast, please return for re-evaluation. Prescriptions: No Action (DME) blood-glucose meter [FreeStyle Steward Lite] Kit See Rx Instructions .Route Qty: 1 0RF Rx Instructions: As directed (DME) FreeStyle Test Strip See Rx Instructions .Route Qty: 100 1RF Rx Instructions: As directed (DME) lancets [FreeStyle Lancets] 28 gauge misc See Rx Instructions .ROUTE .MEDSUPPLY Qty: 100 3RF Rx Instructions: As directed polyethylene glycol 3350 [HealthyLax] 17 gram powder in packet 17 g PO DAILY PRN (Reason: for constipation) Qty: 30 2RF sucralfate 1 gram tablet 1 g PO BID Qty: 180 0RF lorazepam 0.5 mg tablet 0.5 mg PO DAILY 5 Days Qty: 5 0RF atorvastatin 40 mg tablet 40 mg PO DAILY Qty: 90 1RF losartan 50 mg tablet 50 mg PO DAILY 90 Days Qty: 90 1RF rabeprazole 20 mg tablet,delayed release (DR/EC) 20 mg PO DAILY Qty: 90 1RF magnesium 250 mg tablet 250 mg PO DAILY 30 Days Qty: 30 3RF Mounjaro 2.5 mg/0.5 mL pen injector 2.5 mg subcut QWEEK 28 Days Qty: 2 0RF Rx Instructions: for 4 weeks triamcinolone acetonide 0.1 % cream 1 appl topical DAILY 15 Days Qty: 30 1RF epinephrine [EpiPen 2-Rashard] 0.3 mg/0.3 mL auto-injector 0.3 mg IM Q4H PRN (Reason: anaphylaxis) 30 Days Qty: 2 0RF metformin 500 mg tablet extended release 24 hr 1,000 mg PO BID 90 Days Qty: 360 1RF diphenhydramine HCl [Allergy (diphenhydramine)] 25 mg tablet 50 mg PO DIRECTED Qty: 1 0RF Rx Instructions: Diphenhydramine 50 mg PO, 1 hour before contrast media injection for CAT. sodium,potassium,mag sulfates [Suprep Bowel Prep Kit] 17.5-3.13-1.6 gram recon soln See Rx Instructions PO .COMPLEX Qty: 354 0RF Rx Instructions: DILUTE; drink 1/2 at 6-8 pm and half at 11 PM- 1AM gabapentin 100 mg capsule 100 mg PO BID 15 Days Qty: 30 0RF Referrals: [facility] [place] Orthopedic Surgeons [Provider Group] Interventions: ED Discharge Assessment Last Done: 08/12/24 11:53 Discharge Date/Time: 08/12/24 11:53 Print Language: Colombian
[2024-08-12] MEDS: Acetaminophen/Codeine 300-30mg Tablet 1 TAB PO (09:17)
[2024-08-12 11:53] VITALS: BP 157/97; PULSE 88; RESP 18; TEMP 37; O2SAT 98
== END 2024-08-12 11:53 | disposition home or self-care (01) ==
PROVIDERS: Emergency Provider Emergency Medicine; PCP Physician Assistant
DX: M25.561 Pain in right knee (principal); M25.562 Pain in left knee; Z79.899 Other long term (current) drug therapy
CPT/HCPCS: 36415; 73564; 80048; 85025; 99283

== ENCOUNTER 2024-08-16 13:11 | Emergency (ER) | payer OTHER, SELFPAY ==
--- NOTE | ~2024-08-16 | US_ITS ---
EXAMINATION: US TRIPLEX LOWER EXTREMITY, LEFT CLINICAL INFORMATION: Leg pain COMPARISON: 03/04/2017 TECHNIQUE: Color-flow triplex imaging with spectral analysis and compression Doppler were performed on the left lower extremity. FINDINGS: Respiratory variation, normal compression and augmented flow are noted throughout the left lower extremity. The visualized common femoral vein, superficial femoral vein, profunda femoral vein, popliteal vein and midcalf peroneal and posterior tibial venous segments show no evidence of deep venous thrombosis. There is no Raymundo's cyst. US/US venous duplex LE LT IMPRESSION: No evidence of deep venous thrombosis involving the left lower extremity. Electronically signed by: Edilberto Tian MD 08/16/2024 02:03 PM EDT
[2024-08-16 13:14] VITALS: BP 145/84; PULSE 99; RESP 18; TEMP 36.6; O2SAT 98; BMI 28.3
--- NOTE | 2024-08-16 13:14 | ED_ITS ---
HPI - General Adult General Chief complaint: Extremity Injury, Lower Stated complaint: Bilateral leg pain/L leg swelling Time Seen by Provider: 08/16/24 15:28 Source: patient Mode of arrival: wheelchair Limitations: no limitations History of Present Illness ED Provider: Jyoti Rock PA-C HPI narrative: 69 yo female with history of HTN, GERD, DM, migraines, osteoarthritis who presents to the ER for evaluation of worsening bilateral knee pain, L>R for the last 1 month. Seen here 08/12 and had x-rays done showing mild tricompartment osteoarthritis. he has an appointment with orthopedics in 2 weeks but she states she cant wait that long because the pain is worsening. no relief w/ tylenol. she would like an injection today. she reports pain is now shooting down the left leg. no relief with gabapentin from her PCP. MD complaint: bilateral knee pain, L>R Onset (ago): week(s) Location: left, right and lower extremity Radiation: distal Severity: severe Severity scale (1-10): 10 Quality: burning, stabbing and aching Pain Consistency: constant Relieving factors: none Exacerbating factors: movement Associated symptoms: denies other symptoms Treatments prior to arrival: none Related Data Previous Rx's ?Medication ?Instructions ?Recorded triamcinolone acetonide 0.1 % 1 appl topical DAILY 15 days #30 04/24/22 topical cream grams blood sugar diagnostic (FreeStyle #100 ea 02/27/23 Test strips) blood-glucose meter (FreeStyle #1 ea 02/27/23 [place]ite kit) lancets 28 gauge (FreeStyle #100 ea 03/15/23 Lancets) epinephrine 0.3 mg/0.3 mL 0.3 mg (0.3 mL) IM Q4H PRN 03/25/23 injection, auto-injector (EpiPen anaphylaxis 30 days #2 ea 2-Rashard) polyethylene glycol 3350 17 gram 17 g PO DAILY PRN for constipation 12/03/23 oral powder packet (HealthyLax) #30 packets diphenhydramine HCl 25 mg tablet 50 mg (2 x 25 mg) PO DIRECTED 12/05/23 (Allergy (diphenhydramine)) #1 tab metformin 500 mg tablet,extended 1,000 mg (2 x 500 mg) PO BID 90 01/20/24 release 24 hr days #360 tabs sucralfate 1 gram tablet 1 g PO BID #180 tabs 03/08/24 sodium,potassium,mag sulfates 17.5 See Rx Instructions PO .COMPLEX 04/09/24 gram-3.13 gram-1.6 gram oral soln #354 mL (Suprep Bowel Prep Kit) lorazepam 0.5 mg tablet 0.5 mg PO DAILY anxiety 5 days #5 05/17/24 tabs atorvastatin 40 mg tablet 40 mg PO DAILY #90 tabs 06/16/24 losartan 50 mg tablet 50 mg PO DAILY 90 days #90 tabs 06/23/24 rabeprazole 20 mg tablet,delayed 20 mg PO DAILY #90 tabs 07/06/24 release gabapentin 100 mg capsule 100 mg PO BID 15 days #30 caps 08/02/24 magnesium 250 mg tablet 250 mg PO DAILY 30 days #30 tabs 08/02/24 tirzepatide 2.5 mg/0.5 mL 2.5 mg (0.5 mL) subcut QWEEK 4 08/02/24 subcutaneous pen injector weeks #2 mL (Daniel) acetaminophen 300 mg-codeine 30 mg 1 tab PO BID PRN severe pain 08/16/24 tablet (scale score 7-10) #6 tabs prednisone 20 mg tablet 40 mg (2 x 20 mg) PO DAILY #8 tabs 08/16/24 Allergies Allergy/AdvReac Type Severity Reaction Status Date / Time dicyclomine [From BENTYL] Allergy Unknown HIVES Verified 08/16/24 13:16 hydrocodone [HYDROCODONE] Allergy Unknown UNKNOWN Verified 08/16/24 13:16 ibuprofen [From MOTRIN] Allergy Unknown HIVES Verified 08/16/24 13:16 Iodinated Contrast Media Allergy Unknown ITCHING Verified 08/16/24 13:16 [IV CONTRAST] minocycline [MINOCYCLINE] Allergy Unknown UNK Verified 08/16/24 13:16 morphine [MORPHINE] Allergy Unknown UNKNOWN Verified 08/16/24 13:16 naproxen [NAPROXEN] Allergy Unknown UNKOWN Verified 08/16/24 13:16 peanut [PEANUT] Allergy Unknown HIVES Verified 08/16/24 13:16 sulfamethoxazole Allergy Unknown UNKNOWN Verified 08/16/24 13:16 [From BACTRIM] tramadol [TRAMADOL] Allergy Unknown UNK Verified 08/16/24 13:16 trimethoprim [From BACTRIM] Allergy Unknown UNKNOWN Verified 08/16/24 13:16 lisinopril Allergy Abdominal Verified 08/16/24 13:16 Pain metronidazole [From Flagyl] Allergy Hives Verified 08/16/24 13:16 glipizide AdvReac Intermediate neuropathy Verified 08/16/24 13:16 amitriptyline [AMITRIPTYLINE] AdvReac Mild HYPER Verified 08/16/24 13:16 metoclopramide [From REGLAN] AdvReac Mild HYPER Verified 08/16/24 13:16 latex [LATEX] AdvReac Unknown RASH Verified 08/16/24 13:16 phenylephrine [PHENYLEPHRINE] AdvReac Unknown UNKNOWN Verified 08/16/24 13:16 promethazine [From PHENERGAN] AdvReac Unknown UNK Verified 08/16/24 13:16 SHELLFISH Allergy Unknown HIVES Uncoded 08/12/24 07:01 Review of Systems Review of Systems: Yes all other systems are reviewed and are negative PMFSH Past Medical History Medical History HTN (hypertension) Migraine GERD (gastroesophageal reflux disease) Diabetes Surgical History Hx of colonoscopy History of esophagogastroduodenoscopy (EGD) S/P carpal tunnel release Family History Family History Maternal Grandmother Colon cancer Social History Social History Housing: Apartment Alcohol intake: never Patient Tobacco Use Status: Never used Tobacco e-Cigarette/Vaping Use: Never Used Second Hand Smoke Exposure: No Advance Directives: No Advance Directives Information Provided: No Advance Directives Date on File: 04/25/23 Do you have a plan to hurt others: No Plan service: No Current occupational status: disabled Cognitive needs: No Hearing needs: No Vision needs: No Physical Exam ED Vital Signs: Vital Signs - 24 hr 08/16/24 13:14 08/16/24 15:36 Temperature 97.9 F 97.9 F Pulse Rate 99 83 Respiratory Rate 18 18 Blood Pressure 145/84 H 139/81 Pulse Oximetry 98 98 Oxygen Delivery Method Room Air Room Air BMI result Body Mass Index 28.3 Appearance: Alert. Oriented X3. No acute distress. HEENT: normal inspection CVS: Normal heart rate and rhythm. Pulses normal. Respiratory: No respiratory distress. Skin: Skin warm and dry. Normal skin color. Normal skin turgor. No rashes. Extremities: mild generalized swelling of the bilateral knees. no lower leg swelling, erythema or warmth. left knee with pain w/ passive flexion past 90 degrees, tender along the medial joint line, pain with valus stress. FROM of the right knee, no apprecaited joint laxiety. Neuro: Oriented X 3. No motor deficit. No sensory deficit. Course Course Course Narrative: This is an RME: Additional HPI, ROS, PE not included below will be deferred to primary provider. RME assessment and note performed by: Torrie Gautam PA-C This is a [id number]-female who presents to the ER with complaints of ongoing BL knee pain. Patient was seen 4 days ago, has been taking Tylenol for her symptoms with minimal relief. She states that she has had swelling in her left leg which is new. She had x-rays of her bilateral knees revealing severe osteoarthritis. Plan: US left leg, labs, further ER evaluation. Medical Decision Making Medical Decision Making MDM Narrative: 69 yo female presenting to the ER for evaluation of bilateral knee pain for the last 1 month, left worse than right without any specific injury. crying on arrival. says she cant live in his much pain. XR from 08/12 reviewed. LE doppler from today negative she is allergic to NSAIDs she has responded well to prednisone in the past - will give short course and advise to monitor glucose levels closely will give short course of tylenol #3 for severe pain only. will need to f/u with PCP and ortho for further evalution and treatment. she expressed understanding of outpatient follow up importance. EVAN wrap applied to bilateral knees with some relief. Differential Diagnosis Differential Diagnoses: The differential diagnosis associated with the presentation includes OA, inflammatory arthritis, DVT, bakers cyst, ligamentous injury Independent Interpretation I performed an independent interpretation of an: Ultrasound Interpretation: no acute dvt Radiology Impression Discussion of test interpretation with radiology: I have reviewed the radiologist's reading. External Record Review External record reviewed: Outpatient record, Prior outpatient labs and Prior outpatient radiology Prescription Management I considered prescription management with: Pain Medication Chronic Conditions Patient?s care impacted by: Diabetes and Hypertension Critical Care Time Critical Care Time Critical Care Time: No Discharge Plan Discharge Clinical Impression: Bilateral knee pain Qualifiers: Chronicity: unspecified Qualified Code(s): M25.561 - Pain in right knee Patient Disposition: Home, Self-Care Instructions: Knee Pain (ED) Additional Instructions: your ultrasound was negative for blood clot wear the EVAN wraps for compression and support ice your knees 2-3 times per day take the prescribed pain medication as needed for severe pain only. do not drive after taking this medication take the prescribed prednisone for anti-inflammatory effects - start it tomorrow, as you were given a dose today in the ER follow up with orthopedics and your PCP If you develop new or worsening symptoms call 911 or come back to the ER for further evaluation. Prescriptions: New prednisone 20 mg tablet 40 mg PO DAILY Qty: 8 0RF acetaminophen-codeine 300-30 mg tablet 1 tab PO BID PRN (Reason: severe pain (scale score 7-10)) Qty: 6 0RF No Action (DME) blood-glucose meter [FreeStyle [place]ite] Kit See Rx Instructions .Route Qty: 1 0RF Rx Instructions: As directed (DME) FreeStyle Test Strip See Rx Instructions .Route Qty: 100 1RF Rx Instructions: As directed (DME) lancets [FreeStyle Lancets] 28 gauge misc See Rx Instructions .ROUTE .MEDSUPPLY Qty: 100 3RF Rx Instructions: As directed polyethylene glycol 3350 [HealthyLax] 17 gram powder in packet 17 g PO DAILY PRN (Reason: for constipation) Qty: 30 2RF sucralfate 1 gram tablet 1 g PO BID Qty: 180 0RF lorazepam 0.5 mg tablet 0.5 mg PO DAILY 5 Days Qty: 5 0RF atorvastatin 40 mg tablet 40 mg PO DAILY Qty: 90 1RF losartan 50 mg tablet 50 mg PO DAILY 90 Days Qty: 90 1RF rabeprazole 20 mg tablet,delayed release (DR/EC) 20 mg PO DAILY Qty: 90 1RF magnesium 250 mg tablet 250 mg PO DAILY 30 Days Qty: 30 3RF Mounjaro 2.5 mg/0.5 mL pen injector 2.5 mg subcut QWEEK 28 Days Qty: 2 0RF Rx Instructions: for 4 weeks triamcinolone acetonide 0.1 % cream 1 appl topical DAILY 15 Days Qty: 30 1RF epinephrine [EpiPen 2-Rashard] 0.3 mg/0.3 mL auto-injector 0.3 mg IM Q4H PRN (Reason: anaphylaxis) 30 Days Qty: 2 0RF metformin 500 mg tablet extended release 24 hr 1,000 mg PO BID 90 Days Qty: 360 1RF diphenhydramine HCl [Allergy (diphenhydramine)] 25 mg tablet 50 mg PO DIRECTED Qty: 1 0RF Rx Instructions: Diphenhydramine 50 mg PO, 1 hour before contrast media injection for CAT. sodium,potassium,mag sulfates [Suprep Bowel Prep Kit] 17.5-3.13-1.6 gram recon soln See Rx Instructions PO .COMPLEX Qty: 354 0RF Rx Instructions: DILUTE; drink 1/2 at 6-8 pm and half at 11 PM- 1AM gabapentin 100 mg capsule 100 mg PO BID 15 Days Qty: 30 0RF Referrals: [facility] [Provider Group] Celso Mathur PA-C [Primary Care Provider] - Print Language: Turkish
[2024-08-16 15:36] VITALS: BP 139/81; PULSE 83; RESP 18; TEMP 36.6; O2SAT 98
--- NOTE | 2024-08-16 15:37 | PC.NURSE ---
patient a&ox3, c/o ongoing lle pain, took tylenol at home without relief, pt states her appt with ortho is 2 weeks away and she cant stand the pain any longer and wants the ED to do injections- this nurse explained to the patient that there are no injections done in the ED- pt awaiting provider evaluation, will continue to monitor
[2024-08-16] MEDS: Acetaminophen/Codeine 300-30mg Tablet 1 TAB PO (16:31)
[2024-08-16] MEDS: predniSONE 20 MG TABLET 40 MG PO (16:31)
--- NOTE | 2024-08-16 16:33 | PC.NURSE ---
pt medicated for 9/10 pain per order.
--- NOTE | 2024-08-16 16:35 | PC.NURSE ---
provider miryam wrapped lle
[2024-08-16 16:37] VITALS: BP 140/69; PULSE 78; RESP 16; TEMP 36.8; O2SAT 98
[2024-08-16 16:48] VITALS: BP 140/69; PULSE 78; RESP 16; TEMP 36.8; O2SAT 98
== END 2024-08-16 16:49 | disposition home or self-care (01) ==
PROVIDERS: Emergency Provider Emergency Medicine; PCP Physician Assistant
DX: R60.0 Localized edema (principal); M25.562 Pain in left knee; M25.561 Pain in right knee; Z79.899 Other long term (current) drug therapy
CPT/HCPCS: 93971; 99284

== ENCOUNTER 2024-08-31 08:38 | Outpatient (AMB) | payer OTHER, SELFPAY ==
--- NOTE | 2024-08-31 08:41 | MHC.OFFVIS ---
Vital Signs 08/31/24 08:43 Height 5 ft 4 in Weight 160 lb BMI 27.5 Intake Visit Reasons: [employer]-Bilateral knee pain-ED follow up Intake Note: Roslyn is a 69 year old female who presents with complaints of progressively worsening bilateral knee pains. She describes her pains as sharp in nature. She has been to the emergency room because of her pain. She was given a prescription for prednisone which gives her mild relief. She denies any locking or giving way. She has had cortisone injections given into her shoulders in the past which gave her fairly good relief. bilateral knee pain. Allergies dicyclomine [From BENTYL] Allergy (Unknown, Verified 08/31/24 08:45) HIVES hydrocodone [HYDROCODONE] Allergy (Unknown, Verified 08/31/24 08:45) UNKNOWN ibuprofen [From MOTRIN] Allergy (Unknown, Verified 08/31/24 08:45) HIVES Iodinated Contrast Media [IV CONTRAST] Allergy (Unknown, Verified 08/31/24 08:45) ITCHING minocycline [MINOCYCLINE] Allergy (Unknown, Verified 08/31/24 08:45) UNK morphine [MORPHINE] Allergy (Unknown, Verified 08/31/24 08:45) UNKNOWN naproxen [NAPROXEN] Allergy (Unknown, Verified 08/31/24 08:45) UNKOWN peanut [PEANUT] Allergy (Unknown, Verified 08/31/24 08:45) HIVES sulfamethoxazole [From BACTRIM] Allergy (Unknown, Verified 08/31/24 08:45) UNKNOWN tramadol [TRAMADOL] Allergy (Unknown, Verified 08/31/24 08:45) UNK trimethoprim [From BACTRIM] Allergy (Unknown, Verified 08/31/24 08:45) UNKNOWN lisinopril Allergy (Verified 08/31/24 08:45) Abdominal Pain metronidazole [From Flagyl] Allergy (Verified 08/31/24 08:45) Hives glipizide Adverse Reaction (Intermediate, Verified 08/31/24 08:45) neuropathy amitriptyline [AMITRIPTYLINE] Adverse Reaction (Mild, Verified 08/31/24 08:45) HYPER metoclopramide [From REGLAN] Adverse Reaction (Mild, Verified 08/31/24 08:45) HYPER latex [LATEX] Adverse Reaction (Unknown, Verified 08/31/24 08:45) RASH phenylephrine [PHENYLEPHRINE] Adverse Reaction (Unknown, Verified 08/31/24 08:45) UNKNOWN promethazine [From PHENERGAN] Adverse Reaction (Unknown, Verified 08/31/24 08:45) UNK SHELLFISH Allergy (Unknown, Uncoded 08/31/24 08:45) HIVES Medication List - Last Reconciled 08/31/24 by Kam Crowell MD acetaminophen-codeine 300-30 mg 1 tab PO BID PRN atorvastatin 40 mg PO DAILY blood sugar diagnostic (FreeStyle Test strips) As directed blood-glucose meter (FreeStyle [place]ite kit) As directed diphenhydramine HCl (Allergy (diphenhydramine)) 50 mg (2 x 25 mg) PO DIRECTED epinephrine (EpiPen 2-Rashard) 0.3 mg (0.3 mL) IM Q4H PRN 30 days gabapentin 100 mg PO BID 15 days lancets (FreeStyle Lancets) As directed losartan 50 mg PO DAILY 90 days magnesium 250 mg PO DAILY 30 days metformin ER 1,000 mg (2 x 500 mg) PO BID 90 days polyethylene glycol 3350 (HealthyLax) 17 grams PO DAILY PRN prednisone 20 mg PO DAILY 7 days rabeprazole 20 mg PO BID sucralfate 1 g PO BID tirzepatide (Mounjaro) 2.5 mg (0.5 mL) subcut QWEEK 4 weeks triamcinolone acetonide 0.1% 1 appl topical DAILY 15 days walker (Ultra-Light Rollator misc) As directed [facility] Medical History HTN (hypertension) Migraine GERD (gastroesophageal reflux disease) Diabetes Surgical History Hx of colonoscopy History of esophagogastroduodenoscopy (EGD) S/P carpal tunnel release Family History Maternal Grandmother Colon cancer Social History Housing: Apartment Alcohol intake: never Patient Tobacco Use Status: Never used Tobacco e-Cigarette/Vaping Use: Never Used Second Hand Smoke Exposure: No Advance Directives Date on File: 04/25/23 service: No Current occupational status: disabled Cognitive needs: No Hearing needs: No Vision needs: No Physical Exam Vital Signs: BMI result Body Mass Index 27.5 Const Other: Well-nourished well-developed very friendly female awake alert and oriented x3 in no acute distress Extrem Other: Bilateral lower extremity examination shows good capillary refill, no skin lesions noted, normal sensation light touch Bilateral knee examination shows minimal effusions, palpable crepitus with range of motion, pain with range of motion, no instability Office Procedures Joint Injection/Aspiration Joint Injection/Aspiration Primary Site: left knee Prep: site was prepped using aseptic technique Injected: 40 mg of, DepoMedrol and 1% plain lidocaine Procedure: The patient tolerated the procedure well Coding 88987 - Large joint Procedure code (CPT) selection complete Joint Injection/Aspiration Joint Injection/Aspiration Primary Site: right knee Prep: site was prepped using aseptic technique Injected: 40 mg of, DepoMedrol and 1% plain lidocaine Procedure: The patient tolerated the procedure well Coding 75442 - Large joint Procedure code (CPT) selection complete Results Reviewed Results Reviewed: X-rays of the patient's bilateral knees show moderate joint space narrowing, calcifications consistent with possible gout or pseudogout Assessment & Plan Assessment & Plan (1) Arthritis of left knee: Code(s): M17.12 - Unilateral primary osteoarthritis, left knee Category: Medical (2) Arthritis of right knee: Code(s): M17.11 - Unilateral primary osteoarthritis, right knee Category: Medical Plan Roslyn presents with bilateral knee pains due to degenerative joint disease as well as possible gout or pseudogout. The risks and benefits of bilateral knee cortisone injections were discussed at length with the patient. The patient wished to proceed. She tolerated the injections well. I will refer her to the Rheumatology Department here at [facility] for further evaluation of possible gout or pseudogout. She will contact me prior to her follow-up appointment in 3 months should any questions or concerns arise. Feel free to call me at any time should questions regarding her orthopedic management arise. I spent 20 minutes in reviewing the patient's records and imaging studies, seeing the patient and documenting in the medical record. Orders: Orders AMB Joint Injection/Aspiration Today M17.12 - Unilateral primary osteoarthritis, left knee AMB Joint Injection/Aspiration Today M17.11 - Unilateral primary osteoarthritis, right knee Referrals Rheumatology Referral M10.9 - Gout, unspecified Coding Level of Care Code New Pt Level 3 (72805) Complex EM visit Add On G2211 Diagnoses Arthritis of left knee M17.12 Arthritis of right knee M17.11 CPT Codes Coding - 85710 Large joint: 89540 - Large joint ([id number]) Coding - 56200 Large joint: 30644 - Large joint ([id number])
[2024-08-31 08:43] VITALS: BMI 27.5
== END 2024-08-31 09:22 | disposition home or self-care (01) ==
LOC: HO.HOS 08:38
PROVIDERS: PCP Physician Assistant; Visit Provider Orthopaedic Surgery
DX: M17.0 Bilateral primary osteoarthritis of knee (principal)
CPT/HCPCS: 20610; 99203

== ENCOUNTER → 2024-08-31 08:38 | Outpatient (BNVA) | payer OTHER, SELFPAY | PROVIDERS: PCP Physician Assistant; Visit Provider Orthopaedic Surgery | DX: M17.0 Bilateral primary osteoarthritis of knee (principal) | CPT/HCPCS: 20610; 99202; J1010; J2003 ==

== ENCOUNTER 2024-09-01 14:56 | Outpatient (REF) | payer OTHER, SELFPAY ==
[2024-09-01 16:33] LABS: MANUAL DIFF FLAG NO
[2024-09-01 17:18] LABS: Basophils Absolute Auto 0.1 X10*3/uL (0.0-0.2); Basophils Percent Auto 0.5 % (0-2); Eosinophils Absolute Auto 0.1 X10*3/uL (0.0-0.4); Eosinophils Percent Auto 0.7 % (0-4); Hematocrit 37.4 % (37.0-47.0); Imm Gran Abs Auto 0.03 X10*3/uL (0.00-0.03); Imm Gran Pct Auto 0.3 % (0.0-0.4); Mean Corpuscular HGB Conc 32.1 g/dl (31.0-35.0); Mean Corpuscular Hemoglobin 27.3 pg (27.0-33.0); Mean Platelet Volume 10.4 fL (9.4-12.3); Monocytes Absolute Auto 0.5 X10*3/uL (0.1-1.2); Monocytes Percent Auto 4.2 % (2-11); Neutrophils Percent Auto 77.3 % (45-73); Platelet Count 258 X10*3/uL (160-400); Red Cell Distribution Width 13.4 % (11.0-16.0); White Blood Count 11.6 X10*3/uL (4.8-10.8)
[2024-09-01 18:02] LABS: Erythrocyte Sedimentation Rate 21 MM/HR (0-20)
[2024-09-01 18:12] LABS: Rheumatoid Factor < 13.0 IU/mL (<15.0)
[2024-09-01 18:21] LABS: Alanine Aminotransferase 19 U/L (0-31); Albumin Level 4.4 g/dL (3.5-5.0); Alkaline Phosphatase 44 U/L (39-117); Anion Gap 17 (12-20); Aspartate Amino Transferase 16 U/L (5-31); Bilirubin Total 0.6 mg/dL (0.0-1.0); Blood Urea Nitrogen 17 mg/dL (9-16); C Reactive Protein 1.16 mg/dL (< or = 0.50); Calcium 9.8 mg/dL (8.4-10.2); Carbon Dioxide 21 mmol/L (22-29); Chloride 106 mmol/L (96-108); Estimated Glomerular Filt Rate > 60; Glucose Random 153 mg/dL (60-115); Sodium 140 mmol/L (135-145); Total Protein 7.6 g/dL (6.5-8.0); Uric Acid 4.1 mg/dL (2.4-5.7)
[2024-09-02 08:41] LABS: HBS Num1 1.82 mIU/mL (0-7.99); HBc Num1 0.08 S/CO (0.00-0.79); HBsAGNum1 0.42 S/CO (0.00-0.99); Hepatitis A Antibody IgM 0.37 Index (0-0.79); Hepatitis B Core Antibody Nonreactive (Nonreactive); Hepatitis B Surface Antigen Negative (Negative); ~HepC Num1 0.08 S/CO (0.00-0.79); ~Hepatitis A Antibody IgM Nonreactive (Nonreactive); ~Hepatitis B Surface Antibody NONREACTIVE (Nonreactive); ~Hepatitis C Antibody Nonreactive (Nonreactive)
[2024-09-03 02:28] LABS: Complement C3 83 mg/dL (83-193)
[2024-09-03 12:24] LABS: Prot Elec - Albumin 4.4 g/dL (3.8-4.8); Prot Elec - Alpha1 0.3 g/dL (0.2-0.3); Prot Elec - Alpha2 1.2 g/dL (0.5-0.9); Prot Elec - Beta 1 0.5 g/dL (0.4-0.6); Prot Elec - Beta 2 0.5 g/dL (0.2-0.5); Prot Elec - Gamma 0.9 g/dL (0.8-1.7); Prot Elec - Total Protein 7.7 g/dL (6.1-8.1)
[2024-09-06 05:18] LABS: DNAds, Crithidia Antibody Negative (Negative)
[2024-09-06 14:29] LABS: IgA 345 mg/dL (70-320); IgG 1076 mg/dL (600-1540); IgM 48 mg/dL (50-300)
[2024-09-06 22:53] LABS: Cyclic Citrullinated Peptide <16 UNITS
[2024-09-07 18:07] LABS: HLA B27 Negative (Negative)
[2024-09-08 07:38] LABS: Anti DNA DS Antibody <1 IU/mL; Antibody to SS-A Antigen <1.0 NEG AI (<1.0 NEG); Antibody to SS-B Antigen <1.0 NEG AI (<1.0 NEG); SM/Ribonucleoprotein Ab <1.0 NEG AI (<1.0 NEG); Smith Protein <1.0 NEG AI (<1.0 NEG)
[2024-09-08 08:18] LABS: Anti Nuclear Antibody Screen NEGATIVE (NEGATIVE)
== END 2024-09-01 14:57 | disposition home or self-care (01) ==
LOC: HO.LAB 14:56
PROVIDERS: PCP Physician Assistant; Visit Provider Student in an Organized Health Care Education/Training Program
DX: M32.9 Systemic lupus erythematosus, unspecified (principal); Z11.59 Encounter for screening for other viral diseases; M25.50 Pain in unspecified joint; M45.9 Ankylosing spondylitis of unspecified sites in spine
CPT/HCPCS: 36415; 80053; 82784; 84165; 84550; 85025; 85652; 86038; 86140; 86160; 86200; 86225; 86235; 86255; 86334; 86431; 86704; 86706; 86709; 86803; 86812; 87340; 99202

== ENCOUNTER 2024-09-01 14:56 | Outpatient (AMB) | payer OTHER, SELFPAY ==
--- NOTE | 2024-09-01 15:07 | A.OFFVIS_ITS ---
Vital Signs 09/01/24 15:15 Height 5 ft 4 in Weight 161 lb 6.054 oz BMI 27.7 BP 115/60 Blood Pressure Location Lt brachial Position Sitting Pulse 85 Pulse Source Pulse Oximeter Pulse Oximetry (%) 98 Oxygen Delivery Method Room Air Intake Visit Reasons: Gout/CM Intake Note: Patient presents for Gout. Allergies dicyclomine [From BENTYL] Allergy (Unknown, Verified 08/31/24 08:45) HIVES hydrocodone [HYDROCODONE] Allergy (Unknown, Verified 08/31/24 08:45) UNKNOWN ibuprofen [From MOTRIN] Allergy (Unknown, Verified 08/31/24 08:45) HIVES Iodinated Contrast Media [IV CONTRAST] Allergy (Unknown, Verified 08/31/24 08:45) ITCHING minocycline [MINOCYCLINE] Allergy (Unknown, Verified 08/31/24 08:45) UNK morphine [MORPHINE] Allergy (Unknown, Verified 08/31/24 08:45) UNKNOWN naproxen [NAPROXEN] Allergy (Unknown, Verified 08/31/24 08:45) UNKOWN peanut [PEANUT] Allergy (Unknown, Verified 08/31/24 08:45) HIVES sulfamethoxazole [From BACTRIM] Allergy (Unknown, Verified 08/31/24 08:45) UNKNOWN tramadol [TRAMADOL] Allergy (Unknown, Verified 08/31/24 08:45) UNK trimethoprim [From BACTRIM] Allergy (Unknown, Verified 08/31/24 08:45) UNKNOWN lisinopril Allergy (Verified 08/31/24 08:45) Abdominal Pain metronidazole [From Flagyl] Allergy (Verified 08/31/24 08:45) Hives glipizide Adverse Reaction (Intermediate, Verified 08/31/24 08:45) neuropathy amitriptyline [AMITRIPTYLINE] Adverse Reaction (Mild, Verified 08/31/24 08:45) HYPER metoclopramide [From REGLAN] Adverse Reaction (Mild, Verified 08/31/24 08:45) HYPER latex [LATEX] Adverse Reaction (Unknown, Verified 08/31/24 08:45) RASH phenylephrine [PHENYLEPHRINE] Adverse Reaction (Unknown, Verified 08/31/24 08:45) UNKNOWN promethazine [From PHENERGAN] Adverse Reaction (Unknown, Verified 08/31/24 08:45) UNK glipizide Allergy (Mild, Uncoded 09/01/24 15:14) Rash SHELLFISH Allergy (Unknown, Uncoded 08/31/24 08:45) HIVES HPI Comments Details: This is a 69-year-old female who is referred by Orthopedics for evaluation of gout/pseudogout. About 3 weeks ago patient started to have pain in both her hands as well as pain and swelling in both her knees, worse on the left. She went to the emergency room multiple times. She was prescribed Tylenol with little relief, she was eventually prescribed prednisone which provided about 80% relief. She had recurrence of symptoms when she ran out, she asked for a refill from her PCP which also helped. She was evaluated by Orthopedics yesterday and had bilateral knee x-rays which showed bilateral knee osteoarthritis. She received bilateral knee cortisone injections. She stated that her knees feel about the same, she feels that the injection has not helped kicked in yet. She denies any skin rashes. Denies any unintentional weight loss, any unexplained fevers. She is unaware of any family history of an autoimmune rheumatic disease. [facility] Medical History HTN (hypertension) Migraine GERD (gastroesophageal reflux disease) Diabetes Surgical History Hx of colonoscopy History of esophagogastroduodenoscopy (EGD) S/P carpal tunnel release Family History Maternal Grandmother Colon cancer Social History Housing: Apartment Alcohol intake: never Patient Tobacco Use Status: Never used Tobacco e-Cigarette/Vaping Use: Never Used Second Hand Smoke Exposure: No Advance Directives Date on File: 04/25/23 service: No Current occupational status: disabled Cognitive needs: No Hearing needs: No Vision needs: No Review of Systems Const Denies fever(s) and Denies weight loss Musc Reports arthralgias, Reports joint swelling and Reports stiffness Physical Exam Vital Signs: Last Vital Signs Pulse 85 09/01/24 15:15 BP 115/60 09/01/24 15:15 Pulse Ox 98 09/01/24 15:15 Oxygen Delivery Method Room Air 09/01/24 15:15 BMI result Body Mass Index 27.7 Const General: cooperative, healthy appearing and comfortable Nutritional Appearance: overweight Orientation/consciousness: patient oriented x3 Limitations: no limitations HEENT Head: Yes normocephalic and Yes atraumatic Mouth: moist mucous membranes Resp Effort & Inspection: normal respiratory effort and able to speak in complete sentences Auscultation: clear to auscultation bilaterally Cardio Rate: regular rate Rhythm: regular rhythm GI Inspection: No distended Palpation (GI): Soft to palpation and nontender Neuro General: patient oriented x3 Extrem Other: Mild puffiness of her fingers, no obvious swelling No wrist tenderness or pain with flexion-extension bilaterally Negative MCP squeeze test bilaterally 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 She is referred by Orthopedics. About 3 weeks ago she had abrupt onset of pain in her hands and both her knees. This responded well to prednisone. Have some suspicion of inflammatory arthritis. I will order comprehensive serology to screen for underlying autoimmune rheumatic disease. Check uric acid level. Check bilateral hand and wrist x-rays Follow-up after workup is completed Plan I spent 46 minutes reviewing patient's chart, evaluating patient, ordering diagnostic workup, counseling patient and documenting in the chart Orders: Orders Complete Blood Count Auto Diff Today M32.9 - Systemic lupus erythematosus, unspecified Comprehensive Met. Panel Today M32.9 - Systemic lupus erythematosus, unspecified Immunofixation Pnl, Serum Today M32.9 - Systemic lupus erythematosus, unspecified Protein Electrophoresis, Serum Today M32.9 - Systemic lupus erythematosus, unspecified Rheumatoid Factor Today M25.50 - Pain in unspecified joint SARATH Reflex Titer and Pattern Today M32.9 - Systemic lupus erythematosus, unspecified Complement C3 Today M32.9 - Systemic lupus erythematosus, unspecified Sjogren's Antibodies Today M32.9 - Systemic lupus erythematosus, unspecified HLA B27 Today M45.9 - Ankylosing spondylitis of unspecified sites in spine C Reactive Protein Today M32.9 - Systemic lupus erythematosus, unspecified Erythrocyte Sedimentation Rate Today M32.9 - Systemic lupus erythematosus, unspecified Hepatitis A,B,C Profile Today Z11.59 - Encounter for screening for other viral diseases Cyclic Citrullinated Peptide Today M25.50 - Pain in unspecified joint Anti Extractable Nuclear Ag Today M32.9 - Systemic lupus erythematosus, unspecified Anti DNA DS Antibody Today M32.9 - Systemic lupus erythematosus, unspecified Complement C4 Today M32.9 - Systemic lupus erythematosus, unspecified DNA Double Stranded-Crithidia Today M32.9 - Systemic lupus erythematosus, unspecified Uric Acid Today M25.50 - Pain in unspecified joint XR hand wrist LT Today M25.50 - Pain in unspecified joint XR hand wrist RT Today M25.50 - Pain in unspecified joint Coding Level of Care Code New Pt Level 4 (54851) Diagnoses Polyarthralgia M25.50
[2024-09-01 15:15] VITALS: BP 115/60; PULSE 85; O2SAT 98; BMI 27.7
== END 2024-09-01 16:00 | disposition home or self-care (01) ==
LOC: HO.RHE 14:56
PROVIDERS: PCP Physician Assistant; Visit Provider Student in an Organized Health Care Education/Training Program
DX: M25.50 Pain in unspecified joint (principal)
CPT/HCPCS: 99204

== ENCOUNTER 2024-09-14 08:26 | Outpatient (REF) | payer OTHER, SELFPAY | END 2024-09-14 08:27 | disposition home or self-care (01) | LOC: HO.XRAY 08:26 | PROVIDERS: PCP Physician Assistant; Visit Provider Student in an Organized Health Care Education/Training Program | DX: M79.641 Pain in right hand (principal); M25.531 Pain in right wrist; M25.532 Pain in left wrist; M79.642 Pain in left hand | CPT/HCPCS: 73110; 73130 ==

== ENCOUNTER 2024-09-15 07:34 | Outpatient (REF) | payer OTHER, SELFPAY ==
[2024-09-15 08:44] LABS: Appearance Urine Clear; Color Urine Yellow; Glucose Urine UA Negative (Negative); Leukocyte Esterase Urine Trace (Negative); Nitrite Urine Negative (Negative); PH 6.5 (5.0-9.0); UMIC TRIGGER UACC YES; Urine Blood Negative (Negative); Urine Ketones Negative (Negative); Urine Protein Negative (Neg-Trace)
[2024-09-15 08:50] LABS: Bacteria Urine None Seen (None Seen); Hyaline Casts Urine 0-2 /LPF (0-2); RBC Urine 0-2 /HPF (0-2); Squamous Epithelial Cell Urine 0-2 /HPF (0-2); WBC Urine 0-5 /HPF (0-5)
== END 2024-09-15 07:35 | disposition home or self-care (01) ==
LOC: HO.LAB 07:34
PROVIDERS: PCP Physician Assistant; Visit Provider Physician Assistant
DX: M17.0 Bilateral primary osteoarthritis of knee (principal); Z79.631 Long term (current) use of antimetabolite agent; R30.0 Dysuria
CPT/HCPCS: 81001; 99212

== ENCOUNTER 2024-09-15 13:41 | Outpatient (AMB) | payer OTHER, SELFPAY ==
--- NOTE | 2024-09-15 13:44 | A.OFFVIS_ITS ---
Vital Signs 09/15/24 13:48 Height 5 ft 4 in Weight 162 lb 14.746 oz BMI 28.0 BP 122/60 Blood Pressure Location Rt brachial Position Sitting Pulse 80 Pulse Source Pulse Oximeter Pulse Oximetry (%) 99 Oxygen Delivery Method Room Air Intake Visit Reasons: gout/CM Intake Note: Patient presents for Gout. Allergies dicyclomine [From BENTYL] Allergy (Unknown, Verified 09/15/24 13:47) HIVES hydrocodone [HYDROCODONE] Allergy (Unknown, Verified 09/15/24 13:47) UNKNOWN ibuprofen [From MOTRIN] Allergy (Unknown, Verified 09/15/24 13:47) HIVES Iodinated Contrast Media [IV CONTRAST] Allergy (Unknown, Verified 09/15/24 13:47) ITCHING minocycline [MINOCYCLINE] Allergy (Unknown, Verified 09/15/24 13:47) UNK morphine [MORPHINE] Allergy (Unknown, Verified 09/15/24 13:47) UNKNOWN naproxen [NAPROXEN] Allergy (Unknown, Verified 09/15/24 13:47) UNKOWN peanut [PEANUT] Allergy (Unknown, Verified 09/15/24 13:47) HIVES sulfamethoxazole [From BACTRIM] Allergy (Unknown, Verified 09/15/24 13:47) UNKNOWN tramadol [TRAMADOL] Allergy (Unknown, Verified 09/15/24 13:47) UNK trimethoprim [From BACTRIM] Allergy (Unknown, Verified 09/15/24 13:47) UNKNOWN lisinopril Allergy (Verified 09/15/24 13:47) Abdominal Pain metronidazole [From Flagyl] Allergy (Verified 09/15/24 13:47) Hives glipizide Adverse Reaction (Intermediate, Verified 09/15/24 13:47) neuropathy amitriptyline [AMITRIPTYLINE] Adverse Reaction (Mild, Verified 09/15/24 13:47) HYPER metoclopramide [From REGLAN] Adverse Reaction (Mild, Verified 09/15/24 13:47) HYPER latex [LATEX] Adverse Reaction (Unknown, Verified 09/15/24 13:47) RASH phenylephrine [PHENYLEPHRINE] Adverse Reaction (Unknown, Verified 09/15/24 13:47) UNKNOWN promethazine [From PHENERGAN] Adverse Reaction (Unknown, Verified 09/15/24 13:47) UNK glipizide Allergy (Mild, Uncoded 09/01/24 15:14) Rash SHELLFISH Allergy (Unknown, Uncoded 08/31/24 08:45) HIVES Medication List - Last Reconciled 09/15/24 by Kendall Pompa MD acetaminophen-codeine 300-30 mg 1 tab PO BID PRN atorvastatin 40 mg PO DAILY blood sugar diagnostic (FreeStyle Test strips) As directed blood-glucose meter (FreeStyle [place] Lite kit) As directed diphenhydramine HCl (Allergy (diphenhydramine)) 50 mg (2 x 25 mg) PO DIRECTED epinephrine (EpiPen 2-Rashard) 0.3 mg (0.3 mL) IM Q4H PRN 30 days folic acid 1 mg PO DAILY gabapentin 100 mg PO BID 15 days lancets (FreeStyle Lancets) As directed losartan 50 mg PO DAILY 90 days magnesium 250 mg PO DAILY 30 days metformin ER 1,000 mg (2 x 500 mg) PO BID 90 days methotrexate sodium 15 mg (6 x 2.5 mg) PO QWEEK polyethylene glycol 3350 (HealthyLax) 17 grams PO DAILY PRN prednisone Take 2 tabs daily for 2 weeks then 1 tab daily for 2 weeks then stop rabeprazole 20 mg PO BID sucralfate 1 g PO BID tirzepatide (Mounjaro) 2.5 mg (0.5 mL) subcut QWEEK 4 weeks triamcinolone acetonide 0.1% 1 appl topical DAILY 15 days walker (Ultra-Light Rollator misc) As directed HPI Comments Details: Patient returns for follow-up after completion of her diagnostic workup. She states that she is doing much better since she started taking prednisone. She no longer has any significant morning stiffness or joint swelling in her hands and knees. Also feels that the steroid injection in her knees has kicked in Initial history: This is a 69-year-old female who is referred by Orthopedics for evaluation of gout/pseudogout. About 3 weeks ago patient started to have pain in both her hands as well as pain and swelling in both her knees, worse on the left. She went to the emergency room multiple times. She was prescribed Tylenol with little relief, she was eventually prescribed prednisone which provided about 80% relief. She had recurrence of symptoms when she ran out, she asked for a refill from her PCP which also helped. She was evaluated by Orthopedics yesterday and had bilateral knee x-rays which showed bilateral knee osteoarthritis. She received bilateral knee cortisone injections. She stated that her knees feel about the same, she feels that the injection has not helped kicked in yet. She denies any skin rashes. Denies any unintentional weight loss, any unexplained fevers. She is unaware of any family history of an autoimmune rheumatic disease. [facility] Medical History (Updated 09/15/24 @ 14:11 by Kendall Pompa MD) HTN (hypertension) Migraine GERD (gastroesophageal reflux disease) Diabetes Surgical History Hx of colonoscopy History of esophagogastroduodenoscopy (EGD) S/P carpal tunnel release Family History Maternal Grandmother Colon cancer Social History Housing: Apartment Alcohol intake: never Patient Tobacco Use Status: Never used Tobacco e-Cigarette/Vaping Use: Never Used Second Hand Smoke Exposure: No Advance Directives Date on File: 04/25/23 service: No Current occupational status: disabled Cognitive needs: No Hearing needs: No Vision needs: No Review of Systems Musc Reports arthralgias, Reports joint swelling and Reports stiffness Physical Exam Vital Signs: Last Vital Signs Pulse 80 09/15/24 13:48 BP 122/60 09/15/24 13:48 Pulse Ox 99 09/15/24 13:48 Oxygen Delivery Method Room Air 09/15/24 13:48 BMI result Body Mass Index 28.0 Const General: cooperative, healthy appearing and comfortable Nutritional Appearance: overweight Orientation/consciousness: patient oriented x3 Limitations: no limitations HEENT Head: Yes normocephalic and Yes atraumatic Mouth: moist mucous membranes Resp Effort & Inspection: normal respiratory effort and able to speak in complete sentences Auscultation: clear to auscultation bilaterally Cardio Rate: regular rate Rhythm: regular rhythm GI Inspection: No distended Palpation (GI): Soft to palpation and nontender Neuro General: patient oriented x3 Extrem Other: Mild puffiness of her fingers, positive MCP squeeze test on the left today 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 Symptoms responded well to prednisone. Clinical picture consistent with new onset inflammatory seronegative arthritis. We will need to start DMARDs. Discussed risks and benefits of methotrexate. P atient agreed to proceed. 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 Monitor safety labs. Patient does not consume alcohol Plan I spent 25 minutes reviewing patient's chart, evaluating patient, ordering diagnostic workup, counseling patient and documenting in the chart Orders: Orders Complete Blood Count Auto Diff 2 Months M13.80 - Other specified arthritis, unspecified site, Z79.631 - long-term (current) use of antimetabolite agent Erythrocyte Sedimentation Rate 2 Months M13.80 - Other specified arthritis, unspecified site, Z79.631 - media intern (current) use of antimetabolite agent Comprehensive Met. Panel 2 Months M13.80 - Other specified arthritis, unspecified site, Z79.631 - media intern (current) use of antimetabolite agent C Reactive Protein 2 Months M13.80 - Other specified arthritis, unspecified site, Z79.631 - media intern (current) use of antimetabolite agent Medications: New folic acid 1 mg PO DAILY 90 tabs 0RF methotrexate sodium 15 mg (6 x 2.5 mg) PO QWEEK 48 tabs 0RF Coding Level of Care Code Est Pt Level 4 (45085) Diagnoses Seronegative arthritis M13.80 long-term methotrexate user Z79.631
[2024-09-15 13:48] VITALS: BP 122/60; PULSE 80; O2SAT 99; BMI 28.0
== END 2024-09-15 14:06 | disposition home or self-care (01) ==
PROVIDERS: PCP Physician Assistant; Visit Provider Student in an Organized Health Care Education/Training Program
DX: M13.80 Other specified arthritis, unspecified site (principal); Z79.631 Long term (current) use of antimetabolite agent
CPT/HCPCS: 99214

== ENCOUNTER 2024-09-24 15:15 | Outpatient (REF) | payer OTHER, SELFPAY ==
--- NOTE | ~2024-09-24 | US_ITS ---
EXAMINATION: US PELVIS LIMITED (BLADDER) CLINICAL INFORMATION: Bladder pain. COMPARISON: None available. TECHNIQUE: Real-time imaging of the bladder. FINDINGS: BLADDER: Well distended and normal. Bilateral ureteral jets are demonstrated. Prevoid bladder volume is 328 mL. Postvoid bladder volume is 20 mL. US/US bladder IMPRESSION: Unremarkable ultrasound appearance of the urinary bladder. Electronically signed by: Avery Marshall MD 09/26/2024 11:01 PM [facility]EN[facility]
== END 2024-09-24 15:16 | disposition home or self-care (01) ==
LOC: HO.US 15:15
PROVIDERS: PCP Physician Assistant; Visit Provider Physician Assistant
DX: R39.89 Other symptoms and signs involving the genitourinary system (principal); R19.00 Intra-abdominal and pelvic swelling, mass and lump, unspecified site
CPT/HCPCS: 76857

== ENCOUNTER 2024-10-14 13:56 | Outpatient (AMB) | payer OTHER, SELFPAY ==
[2024-10-14 14:28] VITALS: BP 126/76; PULSE 92; O2SAT 96; BMI 27.2
--- NOTE | 2024-10-14 14:28 | A.OFFPC_ITS ---
Vital Signs 10/14/24 14:28 Height 5 ft 4 in Weight 158 lb 6 oz BMI 27.2 BP 126/76 Blood Pressure Location Lt brachial Position Sitting Pulse 92 Pulse Source Pulse Oximeter Pulse Oximetry (%) 96 Oxygen Delivery Method Room Air Intake Visit Reasons: f/u DMII Intake Note: Pt is here for her DMII follow-up and is requesting a prescription for a blood pressure monitor. Banking Services Officer Required: No Accompanied by: Self / Same As Patient Allergies dicyclomine [From BENTYL] Allergy (Unknown, Verified 10/14/24 14:38) HIVES hydrocodone [HYDROCODONE] Allergy (Unknown, Verified 10/14/24 14:38) UNKNOWN ibuprofen [From MOTRIN] Allergy (Unknown, Verified 10/14/24 14:38) HIVES Iodinated Contrast Media [IV CONTRAST] Allergy (Unknown, Verified 10/14/24 14:38) ITCHING minocycline [MINOCYCLINE] Allergy (Unknown, Verified 10/14/24 14:38) UNK morphine [MORPHINE] Allergy (Unknown, Verified 10/14/24 14:38) UNKNOWN naproxen [NAPROXEN] Allergy (Unknown, Verified 10/14/24 14:38) UNKOWN peanut [PEANUT] Allergy (Unknown, Verified 10/14/24 14:38) HIVES sulfamethoxazole [From BACTRIM] Allergy (Unknown, Verified 10/14/24 14:38) UNKNOWN tramadol [TRAMADOL] Allergy (Unknown, Verified 10/14/24 14:38) UNK trimethoprim [From BACTRIM] Allergy (Unknown, Verified 10/14/24 14:38) UNKNOWN lisinopril Allergy (Verified 10/14/24 14:38) Abdominal Pain metronidazole [From Flagyl] Allergy (Verified 10/14/24 14:38) Hives glipizide Adverse Reaction (Intermediate, Verified 10/14/24 14:38) neuropathy amitriptyline [AMITRIPTYLINE] Adverse Reaction (Mild, Verified 10/14/24 14:38) HYPER metoclopramide [From REGLAN] Adverse Reaction (Mild, Verified 10/14/24 14:38) HYPER latex [LATEX] Adverse Reaction (Unknown, Verified 10/14/24 14:38) RASH phenylephrine [PHENYLEPHRINE] Adverse Reaction (Unknown, Verified 10/14/24 14:38) UNKNOWN promethazine [From PHENERGAN] Adverse Reaction (Unknown, Verified 10/14/24 14:38) UNK glipizide Allergy (Mild, Uncoded 10/14/24 14:38) Rash SHELLFISH Allergy (Unknown, Uncoded 10/14/24 14:38) HIVES Medication List - Last Reconciled 10/14/24 by Celso Mathur PA-C acetaminophen-codeine 300-30 mg 1 tab PO BID PRN atorvastatin 40 mg PO DAILY blood sugar diagnostic (FreeStyle Test strips) As directed blood-glucose meter (FreeStyle [place] Lite kit) As directed diphenhydramine HCl (Allergy (diphenhydramine)) 50 mg (2 x 25 mg) PO DIRECTED epinephrine (EpiPen 2-Rashard) 0.3 mg (0.3 mL) IM Q4H PRN 30 days folic acid 1 mg PO DAILY gabapentin 100 mg PO BID 15 days lancets (FreeStyle Lancets) As directed losartan 50 mg PO DAILY 90 days magnesium 250 mg PO DAILY 30 days metformin ER 1,000 mg (2 x 500 mg) PO BID 90 days methotrexate sodium 15 mg (6 x 2.5 mg) PO QWEEK polyethylene glycol 3350 (HealthyLax) 17 grams PO DAILY PRN prednisone Take 2 tabs daily for 2 weeks then 1 tab daily for 2 weeks then stop rabeprazole 20 mg PO BID sucralfate 1 g PO BID tirzepatide (Mounjaro) 2.5 mg (0.5 mL) subcut QWEEK 4 weeks triamcinolone acetonide 0.1% 1 appl topical DAILY 15 days walker (Ultra-Light Rollator misc) As directed Tobacco use date assessed: 01/20/24 Dental Screening Dental Screen Date: 01/20/24 HPI f/u DMII HPI Details Patient is a 69-year-old female here today for follow-up visit..? Patient has a past medical history significant for DMII/ HTN, HLD. .. DMII:? Patient continues on metformin 1000 b.i.d.. She is stopped Trulicity as she reports losing too much weight. She has transitioned to Monjauro and glycemic control seems to be much better with A1c today is 6.8 from 8.9. ? . Bilateral knee inflammatory arthritis: Has had a few flare-ups her knee pain to which she required p.o. steroids. She followed up with Orthopedic and did get steroid injections. She also did follow up with oil winterizer who started her on methotrexate. She reports she has stopped using prednisone has her pain has resolved. .. HTN :? DOes check her BP at home and report 120s systiolic. Blood pressure tod ay in office acceptable. ,, Hyperlipidemia:? Patient's most recent lipid panel acceptable with LDL below 100. [facility] Medical History HTN (hypertension) Migraine GERD (gastroesophageal reflux disease) Diabetes Surgical History Hx of colonoscopy History of esophagogastroduodenoscopy (EGD) S/P carpal tunnel release Family History Maternal Grandmother Colon cancer Social History Housing: Apartment Alcohol intake: never Patient Tobacco Use Status: Never used Tobacco e-Cigarette/Vaping Use: Never Used Second Hand Smoke Exposure: No Advance Directives Date on File: 04/25/23 service: No Current occupational status: disabled Cognitive needs: No Hearing needs: No Vision needs: No Questionnaire Thrive Questionnaire Date Thrive assessed: 01/20/24 CAMILLE-7 AMB Questionnaire CAMILLE-7 Date CAMILLE - 7 assessed: 01/20/24 Source: Developed by Drs. Tawanda Flores, Aparna Potter, Joon Adair and colleagues, with an educational sacha from [employer]. Review of Systems Const Denies headache(s) Eyes Denies loss of vision ENT Denies vertigo, Denies dizziness, Denies headache(s) and Denies sore throat Card Denies chest pain, Denies leg edema and Denies lightheadedness Resp Denies cough, Denies hemoptysis and Denies wheezing GI Denies abdominal pain, Denies melena, Denies constipation, Denies diarrhea and Denies vomiting Denies urinary frequency, Denies dysuria and Denies urinary urgency Musc Denies arthralgias, Denies joint swelling, Denies numbness and Denies tingling Neuro Denies Abnormal speech present, Denies behavioral changes, Denies vertigo, Denies dizziness, Denies headache(s), Denies loss of vision, Denies memory loss, Denies numbness and Denies tingling Psych Denies anxiety, Denies behavioral changes, Denies depression, Denies memory loss and Denies panic attacks Pawan/Lymph Denies easy bleeding and Denies easy bruising Aller/Immun Denies wheezing Physical exam (Primary Care) Vital Signs: Last Vital Signs Pulse 92 10/14/24 14:28 BP 126/76 10/14/24 14:28 Pulse Ox 96 10/14/24 14:28 Oxygen Delivery Method Room Air 10/14/24 14:28 BMI result Body Mass Index 27.2 Tobacco/Smoking Status: Tobacco use Status Tobacco use date assessed 01/20/24 10/14/24 14:29 Patient Tobacco Use Status Never used Tobacco 10/14/24 14:29 e-Cigarette/Vaping Use Never Used 10/14/24 14:29 Thrive Assessment: Date of Thrive Assessment Date Thrive assessed 01/20/24 10/14/24 14:29 Const General: healthy appearing, no acute distress, alert and awake Nutritional Appearance: well nourished Orientation/consciousness: oriented to person, oriented to place and oriented to time HENMT Ears: TM's normal bilaterally General nose exam: Normal nasal mucous membranes and turbinates present Eyes Conjunctivae: conjunctivae normal Sclerae: sclerae normal Pupils: Equal, round and reactive pupils present Neck Neck: Yes no lymphadenopathy and Yes no JVD Thyroid: Thyroid normal Carotids: no bruits Resp Effort & Inspection: normal respiratory effort and not tachypneic Auscultation: no crackles, no rales, no rhonchi and no wheezes Cardio Rate: regular rate Rhythm: regular rhythm Heart sounds: no murmurs and normal S1 and S2 GI Palpation (GI): Soft to palpation, nontender, no hepatomegaly and no splenome regan Auscultation: normal bowel sounds Skin General skin exam: no rashes or lesions noted and dry skin Neuro General: oriented to person, oriented to place and oriented to time Cranial nerves: Yes Equal, round and reactive pupils present Speech: No Abnormal speech present Gait exam (Neuro): Normal gait present Motor exam (neuro): no tremor noted Extrem Right upper extremity: full ROM Left upper extremity: full ROM Right lower extremity: full ROM; no edema Left lower extremity: full ROM; no edema Psych Mental Status: mental status grossly normal Speech and movement: Normal speech and movement present Affect: normal affect Attitude: cooperative Thought process: Normal thought process present Office Procedures Flu Questionnaire Does the patient have a severe egg allergy?: No Immunizations Fluarix Triv [id number] (PF) 45 mcg (15 mcg x 3)/0.5 mL IM syringe Performing Provider: Celso Mathur PA-C [facility] Documented (not given) by: ANDER Duque on 10/14/24 14:29 Reason Not Given: Received Previously Coding Level of Care Code Est Pt Level 4 (53893) Diagnoses Type 2 diabetes mellitus with hyperglycemia, without long-term current use of insulin E11.65 Diabetes mellitus chcf insulin use: without equipment operator intermodal yard use Diabetes mellitus complication status: with hyperglycemia Primary hypertension I10 Hypertension type: primary hypertension Mixed hyperlipidemia E78.2 Hyperlipidemia type: mixed hyperlipidemia Assessment & Plan Assessment & Plan (1) DMII (diabetes mellitus, type 2): Code(s): E11.9 - Type 2 diabetes mellitus without complications Category: Medical Qualifiers: Diabetes mellitus equipment operator intermodal yard insulin use: without equipment operator intermodal yard use Diabetes mellitus complication status: with hyperglycemia Qualified Code(s): E11.65 - Type 2 diabetes mellitus with hyperglycemia Plan: Patient's type 2 diabetes much improved since starting alternative GLP 1 (m onjaro) She continues on metformin 2000 mg daily. Goal A1c is to remain below 7.0 (2) HTN (hypertension): Code(s): I10 - Essential (primary) hypertension Category: Medical Qualifiers: Hypertension type: primary hypertension Qualified Code(s): I10 - Essential (primary) hypertension Plan: Patient's blood pressure acceptable today in office. Will continue her current dose of antihypertensive medication with goal blood pressure to remain below 140/90 (3) HLD (hyperlipidemia): Code(s): E78.5 - Hyperlipidemia, unspecified Category: Medical Qualifiers: Hyperlipidemia type: mixed hyperlipidemia Qualified Code(s): E78.2 - Mixed hyperlipidemia Plan: Patient continues on statin therapy without side effect. Most recent lipid panel showing excellent control over total cholesterol and LDL. Goal LDL is to remain below 100. Orders: Orders AMB Hemoglobin A1c Today E11.65 - Type 2 diabetes mellitus with hyperglycemia Complete Blood Count no Diff Today I10 - Essential (primary) hypertension Influenza [id number] Immunization Today Z23 - Encounter for immunization Microalbumin, Random (w Creat) Today I10 - Essential (primary) hypertension Comprehensive [place]. Panel Fast Today I10 - Essential (primary) hypertension Lipid Panel Today E78.2 - Mixed hyperlipidemia Medications: New blood pressure monitor As directed 1 ea 0RF I10 - Essential (primary) hypertension
== END 2024-10-14 14:51 | disposition home or self-care (01) ==
PROVIDERS: PCP Physician Assistant; Visit Provider Physician Assistant
DX: E11.65 Type 2 diabetes mellitus with hyperglycemia (principal); I10 Essential (primary) hypertension; E78.2 Mixed hyperlipidemia; Z23 Encounter for immunization

== ENCOUNTER → 2024-10-14 13:56 | Outpatient (BNVA) | payer OTHER, SELFPAY | PROVIDERS: PCP Physician Assistant; Visit Provider Physician Assistant | DX: M13.80 Other specified arthritis, unspecified site (principal); Z79.631 Long term (current) use of antimetabolite agent; E11.65 Type 2 diabetes mellitus with hyperglycemia; I10 Essential (primary) hypertension; E78.2 Mixed hyperlipidemia | CPT/HCPCS: 90471; 99212 ==

== ENCOUNTER 2024-10-14 15:26 | Outpatient (AMB) | payer OTHER, SELFPAY ==
--- NOTE | 2024-10-14 15:27 | A.OFFVIS_ITS ---
Vital Signs 10/14/24 15:30 Height 5 ft 4 in Weight 158 lb 6 oz BMI 27.2 BP 128/72 Blood Pressure Location Rt brachial Position Sitting Pulse 98 Pulse Source Pulse Oximeter Pulse Oximetry (%) 95 Oxygen Delivery Method Room Air Intake Visit Reasons: Gout Intake Note: Patient presents for Gout. Allergies dicyclomine [From BENTYL] Allergy (Unknown, Verified 10/14/24 15:29) HIVES hydrocodone [HYDROCODONE] Allergy (Unknown, Verified 10/14/24 15:29) UNKNOWN ibuprofen [From MOTRIN] Allergy (Unknown, Verified 10/14/24 15:29) HIVES Iodinated Contrast Media [IV CONTRAST] Allergy (Unknown, Verified 10/14/24 15:29) ITCHING minocycline [MINOCYCLINE] Allergy (Unknown, Verified 10/14/24 15:29) UNK morphine [MORPHINE] Allergy (Unknown, Verified 10/14/24 15:29) UNKNOWN naproxen [NAPROXEN] Allergy (Unknown, Verified 10/14/24 15:29) UNKOWN peanut [PEANUT] Allergy (Unknown, Verified 10/14/24 15:29) HIVES sulfamethoxazole [From BACTRIM] Allergy (Unknown, Verified 10/14/24 15:29) UNKNOWN tramadol [TRAMADOL] Allergy (Unknown, Verified 10/14/24 15:29) UNK trimethoprim [From BACTRIM] Allergy (Unknown, Verified 10/14/24 15:29) UNKNOWN lisinopril Allergy (Verified 10/14/24 15:29) Abdominal Pain metronidazole [From Flagyl] Allergy (Verified 10/14/24 15:29) Hives glipizide Adverse Reaction (Intermediate, Verified 10/14/24 15:29) neuropathy amitriptyline [AMITRIPTYLINE] Adverse Reaction (Mild, Verified 10/14/24 15:29) HYPER metoclopramide [From REGLAN] Adverse Reaction (Mild, Verified 10/14/24 15:29) HYPER latex [LATEX] Adverse Reaction (Unknown, Verified 10/14/24 15:29) RASH phenylephrine [PHENYLEPHRINE] Adverse Reaction (Unknown, Verified 10/14/24 15:29) UNKNOWN promethazine [From PHENERGAN] Adverse Reaction (Unknown, Verified 10/14/24 15:29) UNK glipizide Allergy (Mild, Uncoded 10/14/24 14:38) Rash SHELLFISH Allergy (Unknown, Uncoded 10/14/24 14:38) HIVES Medication List - Last Reconciled 10/14/24 by Kendall Pompa MD acetaminophen-codeine 300-30 mg 1 tab PO BID PRN atorvastatin 40 mg PO DAILY blood pressure monitor As directed blood sugar diagnostic (FreeStyle Test strips) As directed blood-glucose meter (FreeStyle [place] Lite kit) As directed diphenhydramine HCl (Allergy (diphenhydramine)) 50 mg (2 x 25 mg) PO DIRECTED epinephrine (EpiPen 2-Rashard) 0.3 mg (0.3 mL) IM Q4H PRN 30 days folic acid 1 mg PO DAILY gabapentin 100 mg PO BID 15 days lancets (FreeStyle Lancets) As directed losartan 50 mg PO DAILY 90 days magnesium 250 mg PO DAILY 30 days metformin ER 1,000 mg (2 x 500 mg) PO BID 90 days methotrexate sodium 15 mg (6 x 2.5 mg) PO QWEEK polyethylene glycol 3350 (HealthyLax) 17 grams PO DAILY PRN prednisone Take 2 tabs daily for 2 weeks then 1 tab daily for 2 weeks then stop rabeprazole 20 mg PO BID sucralfate 1 g PO BID tirzepatide (Mounjaro) 2.5 mg (0.5 mL) subcut QWEEK 4 weeks triamcinolone acetonide 0.1% 1 appl topical DAILY 15 days walker (Ultra-Light Rollator misc) As directed HPI Comments Details: 69-year-old female with newly diagnosed seronegative RA returns for follow-up. She has been taking methotrexate regularly 6 tablets once weekly for about a month or so, she has been taking folic acid 1 mg a day but she is frustrated that she had to pay for it. She also takes prednisone 5 mg a day. She states that she feels a little better overall but she continues to have intermittent joint pains especially her left knee, her wrists Initial history: This is a 69-year-old female who is referred by Orthopedics for evaluation of gout/pseudogout. About 3 weeks ago patient started to have pain in both her hands as well as pain and swelling in both her knees, worse on the left. She went to the emergency room multiple times. She was prescribed Tylenol with little relief, she was eventually prescribed prednisone which provided about 80% relief. She had recurrence of symptoms when she ran out, she asked for a refill from her PCP which also helped. She was evaluated by Orthopedics yesterday and had bilateral knee x-rays which showed bilateral knee osteoarthritis. She received bilateral knee cortisone injections. She stated that her knees feel about the same, she feels that the injection has not helped kicked in yet. She denies any skin rashes. Denies any unintentional weight loss, any unexplained fevers. She is unaware of any family history of an autoimmune rheumatic disease. [facility] Medical History HTN (hypertension) Migraine GERD (gastroesophageal reflux disease) Diabetes Surgical History Hx of colonoscopy History of esophagogastroduodenoscopy (EGD) S/P carpal tunnel release Family History Maternal Grandmother Colon cancer Social History Housing: Apartment Alcohol intake: never Patient Tobacco Use Status: Never used Tobacco e-Cigarette/Vaping Use: Never Used Second Hand Smoke Exposure: No Advance Directives Date on File: 04/25/23 service: No Current occupational status: disabled Cognitive needs: No Hearing needs: No Vision needs: No Review of Systems Musc Reports arthralgias, Reports joint swelling and Reports stiffness Physical Exam Vital Signs: Last Vital Signs Pulse 98 10/14/24 15:30 BP 128/72 10/14/24 15:30 Pulse Ox 95 10/14/24 15:30 Oxygen Delivery Method Room Air 10/14/24 15:30 BMI result Body Mass Index 27.2 Const General: cooperative, healthy appearing and comfortable Nutritional Appearance: overweight Orientation/consciousness: patient oriented x3 Limitations: no limitations HEENT Head: Yes normocephalic and Yes atraumatic Mouth: moist mucous membranes Resp Effort & Inspection: normal respiratory effort and able to speak in complete sentences Neuro General: patient oriented x3 Extrem Other: Mild puffiness of her fingers, Puffiness of her wrists bilaterally Mild tenderness of wrists 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 No elbow pain with full flexion-extension bilaterally Normal nailfold capillaroscopy Normal range of motion of shoulders bilaterally without pain Left knee pain with full flexion, but no swelling or warmth No ankle swelling or tenderness bilaterally Assessment & Plan Assessment & Plan (1) Seronegative arthritis: Comment: -ve RF -ve CCP dx 09/2024 MTX started 09/2024 Code(s): M13.80 - Other specified arthritis, unspecified site Category: Medical Plan: This is a 69-year-old female who presents for evaluation of joint pain of her hands, knees, labs showed elevated inflammatory markers with negative serologies. Symptoms responded well to prednisone. I diagnosed her with seronegative arthritis last visit and started her on methotrexate 15 mg once weekly plus folic acid 1 mg daily Patient returns for follow-up after one-month, it was too early to assess methotrexate effectiveness Advised patient to stay on methotrexate for 1 more month Patient frustrated that she had to pay for folic acid. 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 Monitor safety labs. 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
[2024-10-14 15:30] VITALS: BP 128/72; PULSE 98; O2SAT 95; BMI 27.2
== END 2024-10-14 15:50 | disposition home or self-care (01) ==
PROVIDERS: PCP Physician Assistant; Visit Provider Student in an Organized Health Care Education/Training Program
DX: M13.80 Other specified arthritis, unspecified site (principal); Z79.631 Long term (current) use of antimetabolite agent
CPT/HCPCS: 99214

== ENCOUNTER 2024-11-08 12:52 | Outpatient (AMB) | payer OTHER, SELFPAY ==
--- NOTE | 2024-11-08 12:57 | A.OFFVIS_ITS ---
Vital Signs 11/08/24 13:03 Height 5 ft 4 in Weight 154 lb 8.705 oz BMI 26.5 BP 120/70 Blood Pressure Location Rt brachial Position Sitting Pulse 98 Pulse Source Pulse Oximeter Pulse Oximetry (%) 99 Oxygen Delivery Method Room Air Intake Visit Reasons: RA Intake Note: Patient presents for RA. Having severe pain on both wrist and fingers, they are very swollen. Lots of pain on both knees, both legs and toes. Having difficulty standing and walking. Allergies dicyclomine [From BENTYL] Allergy (Unknown, Verified 11/08/24 13:02) HIVES hydrocodone [HYDROCODONE] Allergy (Unknown, Verified 11/08/24 13:02) UNKNOWN ibuprofen [From MOTRIN] Allergy (Unknown, Verified 11/08/24 13:02) HIVES Iodinated Contrast Media [IV CONTRAST] Allergy (Unknown, Verified 11/08/24 13:02) ITCHING minocycline [MINOCYCLINE] Allergy (Unknown, Verified 11/08/24 13:02) UNK morphine [MORPHINE] Allergy (Unknown, Verified 11/08/24 13:02) UNKNOWN naproxen [NAPROXEN] Allergy (Unknown, Verified 11/08/24 13:02) UNKOWN peanut [PEANUT] Allergy (Unknown, Verified 11/08/24 13:02) HIVES sulfamethoxazole [From BACTRIM] Allergy (Unknown, Verified 11/08/24 13:02) UNKNOWN tramadol [TRAMADOL] Allergy (Unknown, Verified 11/08/24 13:02) UNK trimethoprim [From BACTRIM] Allergy (Unknown, Verified 11/08/24 13:02) UNKNOWN lisinopril Allergy (Verified 11/08/24 13:02) Abdominal Pain metronidazole [From Flagyl] Allergy (Verified 11/08/24 13:02) Hives glipizide Adverse Reaction (Intermediate, Verified 11/08/24 13:02) neuropathy amitriptyline [AMITRIPTYLINE] Adverse Reaction (Mild, Verified 11/08/24 13:02) HYPER metoclopramide [From REGLAN] Adverse Reaction (Mild, Verified 11/08/24 13:02) HYPER latex [LATEX] Adverse Reaction (Unknown, Verified 11/08/24 13:02) RASH phenylephrine [PHENYLEPHRINE] Adverse Reaction (Unknown, Verified 11/08/24 13:02) UNKNOWN promethazine [From PHENERGAN] Adverse Reaction (Unknown, Verified 11/08/24 13:02) UNK glipizide Allergy (Mild, Uncoded 10/14/24 14:38) Rash SHELLFISH Allergy (Unknown, Uncoded 10/14/24 14:38) HIVES Medication List - Last Reconciled 11/08/24 by Kendall Pompa MD acetaminophen-codeine 300-30 mg 1 tab PO BID PRN atorvastatin 40 mg PO DAILY blood pressure monitor As directed blood sugar diagnostic (FreeStyle Test strips) As directed blood-glucose meter (FreeStyle [place] Lite kit) As directed diphenhydramine HCl (Allergy (diphenhydramine)) 50 mg (2 x 25 mg) PO DIRECTED epinephrine (EpiPen 2-Rashard) 0.3 mg (0.3 mL) IM Q4H PRN 30 days gabapentin 100 mg PO BID 15 days lancets (FreeStyle Lancets) As directed losartan 50 mg PO DAILY 90 days magnesium 250 mg PO DAILY 30 days metformin ER 1,000 mg (2 x 500 mg) PO BID 90 days polyethylene glycol 3350 (HealthyLax) 17 grams PO DAILY PRN prednisone Take 3 tabs daily for 1 week then 2 tabs daily for 1 week then 1 tab daily for 1 week then stop rabeprazole 20 mg PO BID sucralfate 1 g PO BID tirzepatide (Mounjaro) 2.5 mg (0.5 mL) subcut QWEEK 4 weeks triamcinolone acetonide 0.1% 1 appl topical DAILY 15 days walker (Ultra-Light Rollator misc) As directed HPI Comments Details: 69-year-old female with newly diagnosed seronegative RA returns for follow-up. She has been taking methotrexate regularly for 2 months now. She has not had any improvement. She is getting worse. She is having pain and swelling of her hands, wrists, knees. She has significant morning stiffness. She has not been on prednisone more than a month Initial history: This is a 69-year-old female who is referred by Orthopedics for evaluation of gout/pseudogout. About 3 weeks ago patient started to have pain in both her hands as well as pain and swelling in both her knees, worse on the left. She went to the emergency room multiple times. She was prescribed Tylenol with little relief, she was eventually prescribed prednisone which provided about 80% relief. She had recurrence of symptoms when she ran out, she asked for a refill from her PCP which also helped. She was evaluated by Orthopedics yesterday and had bilateral knee x-rays which showed bilateral knee osteoarthritis. She received bilateral knee cortisone injections. She stated that her knees feel about the same, she feels that the injection has not helped kicked in yet. She denies any skin rashes. Denies any unintentional weight loss, any unexplained fevers. She is unaware of any family history of an a utoimmune rheumatic disease. [facility] Medical History (Updated 11/08/24 @ 15:26 by Kendall Pompa MD) HTN (hypertension) Migraine GERD (gastroesophageal reflux disease) Diabetes Surgical History Hx of colonoscopy History of esophagogastroduodenoscopy (EGD) S/P carpal tunnel release Family History Maternal Grandmother Colon cancer Social History Housing: Apartment Alcohol intake: never Patient Tobacco Use Status: Never used Tobacco e-Cigarette/Vaping Use: Never Used Second Hand Smoke Exposure: No Advance Directives Date on File: 04/25/23 service: No Current occupational status: disabled Cognitive needs: No Hearing needs: No Vision needs: No Review of Systems Musc Reports arthralgias, Reports joint swelling and Reports stiffness Physical Exam Vital Signs: Last Vital Signs Pulse 98 11/08/24 13:03 BP 120/70 11/08/24 13:03 Pulse Ox 99 11/08/24 13:03 Oxygen Delivery Method Room Air 11/08/24 13:03 BMI result Body Mass Index 26.5 Const General: cooperative, healthy appearing and comfortable Nutritional Appearance: overweight Orientation/consciousness: patient oriented x3 Limitations: no limitations HEENT Head: Yes normocephalic and Yes atraumatic Mouth: moist mucous membranes Resp Effort & Inspection: normal respiratory effort and able to speak in complete sentences Neuro General: patient oriented x3 Extrem Other: Significant swelling of both hands and wrists, more prominent left wrist Bilateral wrist tenderness and pain with any range of motion Significantly swollen left 2nd and 3rd fingers Bilateral diffuse MCP and PIP tenderness Bilateral elbow pain with full flexion and extension Normal range of motion of shoulders Patient walks with an antalgic gait, can not straighten her knees Bilateral knee pain with any range of motion Assessment & Plan Assessment & Plan (1) Seronegative rheumatoid arthritis: Comment: -ve RF -ve CCP dx 09/2024 MTX started 09/2024 DC 11/2024 ineffective Code(s): M06.00 - Rheumatoid arthritis without rheumatoid factor, unspecified site Category: Medical Plan: This is a 69-year-old female with newly diagnosed seronegative rheumatoid arthritis who presents for follow-up. She has been taking methotrexate 15 mg regularly weekly for 2 months without any improvement. On exam she has significant synovitis. We will need to change DMARDs. Discontinue methotrexate and folic acid Discussed risks and benefits of Enbrel. Patient agreed to proceed. Will start prior authorization for Enbrel Due to significant synovitis today I will provide her with a prednisone taper labs before next visit in 2 months (2) High risk medication use: Code(s): Z79.899 - Other medical terminologist (current) drug therapy Category: Medical Plan: Side effects of Enbrel were discussed with the patient in detail including increased risk of infection, demyelinating disease, reactivation of latent TB, possible increased risk of solid and skin tumors. Patient fully aware. Advised patient to seek medical care ROXY if patient has an infection and advised patient to stop the medication until the infection is resolved. Plan I spent 30 minutes reviewing patient's chart, evaluating patient, ordering diagnostic workup, counseling patient and documenting in the chart Orders: Orders Complete Blood Count Auto Diff 2 Months M13.80 - Other specified arthritis, unspecified site, Z79.631 - medical terminologist (current) use of antimetabolite agent C Reactive Protein 2 Months M13.80 - Other specified arthritis, unspecified site, Z79.631 - nursing home (current) use of antimetabolite agent Comprehensive Met. Panel Today M06.00 - Rheumatoid arthritis without rheumatoid factor, unspecified site C Reactive Protein Today M06.00 - Rheumatoid arthritis without rheumatoid factor, unspecified site Erythrocyte Sedimentation Rate Today M06.00 - Rheumatoid arthritis without rheumatoid factor, unspecified site T Spot TB Today Z11.7 - Encounter for testing for latent tuberculosis infection Comprehensive Met. Panel 2 Months M13.80 - Other specified arthritis, unspecified site, Z79.631 - nursing home (current) use of antimetabolite agent Erythrocyte Sedimentation Rate 2 Months M13.80 - Other specified arthritis, unspecified site, Z79.631 - medical terminologist (current) use of antimetabolite agent Complete Blood Count Auto Diff Today M06.00 - Rheumatoid arthritis without rheumatoid factor, unspecified site Medications: New prednisone Take 3 tabs daily for 1 week then 2 tabs daily for 1 week then 1 tab daily for 1 week then stop 42 tabs 0RF etanercept (Enbrel SureClick) 50 mg subcut QWEEK 4 mL 2RF M06.00 - Rheumatoid arthritis without rheumatoid factor, unspecified site Discontinued folic acid Discontinued Reason: Doctor's Order 1 mg PO DAILY 90 tabs 0RF methotrexate sodium Discontinued Reason: Doctor's Order 15 mg (6 x 2.5 mg) PO QWEEK 48 tabs 0RF Coding Level of Care Code Est Pt Level 4 (85869) Complex EM visit Add On G2211 Diagnoses Seronegative rheumatoid arthritis M06.00 High risk medication use Z79.89
[2024-11-08 13:03] VITALS: BP 120/70; PULSE 98; O2SAT 99; BMI 26.5
== END 2024-11-08 13:33 | disposition home or self-care (01) ==
PROVIDERS: PCP Physician Assistant; Visit Provider Student in an Organized Health Care Education/Training Program
DX: M06.00 Rheumatoid arthritis without rheumatoid factor, unspecified site (principal); Z79.899 Other long term (current) drug therapy
CPT/HCPCS: 99214; G2211

== ENCOUNTER 2024-11-08 12:52 | Outpatient (REF) | payer OTHER, SELFPAY ==
[2024-11-08 14:34] LABS: MANUAL DIFF FLAG NO
[2024-11-08 14:47] LABS: Basophils Absolute Auto 0.1 X10*3/uL (0.0-0.2); Basophils Percent Auto 0.6 % (0-2); Eosinophils Absolute Auto 0.1 X10*3/uL (0.0-0.4); Eosinophils Percent Auto 1.2 % (0-4); Hematocrit 34.7 % (37.0-47.0); Imm Gran Abs Auto 0.05 X10*3/uL (0.00-0.03); Imm Gran Pct Auto 0.6 % (0.0-0.4); Lymphocytes Absolute Auto 1.6 X10*3/uL (1.2-4.9); Lymphocytes Percent Auto 18.5 % (20-40); Mean Corpuscular HGB Conc 31.7 g/dl (31.0-35.0); Mean Platelet Volume 9.4 fL (9.4-12.3); Monocytes Absolute Auto 0.3 X10*3/uL (0.1-1.2); Monocytes Percent Auto 3.6 % (2-11); Neutrophils Absolute Auto 6.4 x10*3/uL (2.0-8.3); Neutrophils Percent Auto 75.5 % (45-73); Platelet Count 303 X10*3/uL (160-400); Red Blood Count 4.08 X10*6/uL (4.20-5.50); Red Cell Distribution Width 14.1 % (11.0-16.0); White Blood Count 8.4 X10*3/uL (4.8-10.8)
[2024-11-08 15:39] LABS: Erythrocyte Sedimentation Rate 76 MM/HR (0-20)
[2024-11-08 16:01] LABS: Alanine Aminotransferase 18 U/L (0-31); Albumin Level 4.2 g/dL (3.5-5.0); Anion Gap 16 (12-20); Aspartate Amino Transferase 20 U/L (5-31); Bilirubin Total 0.5 mg/dL (0.0-1.0); Blood Urea Nitrogen 15 mg/dL (9-16); C Reactive Protein 7.31 mg/dL (< or = 0.50); Carbon Dioxide 21 mmol/L (22-29); Chloride 107 mmol/L (96-108); Estimated Glomerular Filt Rate > 60; Glucose Random 125 mg/dL (60-115); Potassium 3.9 mmol/L (3.3-5.1); Sodium 140 mmol/L (135-145); Total Protein 7.8 g/dL (6.5-8.0)
[2024-11-08 16:20] LABS: Alkaline Phosphatase 45 U/L (39-117)
[2024-11-10 21:48] LABS: TS Negative Control Passed; TS Panel A 0; TS Panel B 0; TS Positive Control Passed; TSpotTB Negative (Negative)
== END 2024-11-08 12:53 | disposition home or self-care (01) ==
LOC: HO.LAB 12:52
PROVIDERS: PCP Physician Assistant; Visit Provider Student in an Organized Health Care Education/Training Program
DX: M06.09 Rheumatoid arthritis without rheumatoid factor, multiple sites (principal); M65.89 Other synovitis and tenosynovitis, multiple sites; Z11.7 Encounter for testing for latent tuberculosis infection; Z79.899 Other long term (current) drug therapy
CPT/HCPCS: 36415; 80053; 85025; 85652; 86140; 86481; 99212

== ENCOUNTER 2024-11-27 11:22 | Emergency (ER) | payer OTHER, SELFPAY ==
[2024-11-27 11:34] VITALS: BP 164/105; PULSE 85; RESP 18; TEMP 36.3; O2SAT 95; BMI 26.8
[2024-11-27 17:22] VITALS: BP 176/92; PULSE 94; RESP 20; TEMP 36.7; O2SAT 96
--- NOTE | 2024-11-27 17:22 | ED.ALLEREA ---
HPI - Allergic Reaction General Chief complaint: Allergic Reaction Stated complaint: allergic reaction to medication Time Seen by Provider: 11/27/24 17:22 Source: patient Mode of arrival: ambulatory Limitations: no limitations History of Present Illness ED Provider: PHIL OCAMPO PA-C HPI narrative: 69 year old female with pmhx significant for T2DM, HTN, HDL, IBS, GERD, hiatal hernia, and RA presents to the ED today for evaluation of hives to bilateral thighs x1 week. She reports starting a new IM medication (enbrel) for her RA 2 weeks ago. She tolerated her first injection in her right thigh. She states that about 2 days after her second injection in her left thigh (1 week ago) she began to notice hives to bilateral thighs. The hives have since spread to her torso. She has followed up with her PCP regarding the enbrel injection and was told to discontinue this medication. She was then prescribed humira however is hesitant to start this medication due to her various allergies. She states she has been on a prednisone taper over the last 3 weeks. Her PCP does not want to increase her steroid dose as she also has hyperglycemia secondary to T2DM. Since her hives began, she has been taking Benadryl at home with significant improvement. She states the hives have almost completely resolved however she still feels itchy. Besides the enbrel, she denies any new medications or antibiotics. No known tick or insect bites. No new soaps, lotions, detergents. Denies fever, chills cough, sore throat, chest pain, dyspnea/sob, wheezing, abd pain, n/v/d, fatigue, muscle aches. Related Data Previous Rx's ?Medication ?Instructions ?Recorded triamcinolone acetonide 0.1 % 1 appl topical DAILY 15 days #30 04/24/22 topical cream grams blood sugar diagnostic (FreeStyle #100 ea 02/27/23 Test strips) blood-glucose meter (FreeStyle #1 ea 02/27/23 [place] Lite kit) lancets 28 gauge (FreeStyle #100 ea 03/15/23 Lancets) epinephrine 0.3 mg/0.3 mL 0.3 mg (0.3 mL) IM Q4H PRN 03/25/23 injection, auto-injector (EpiPen anaphylaxis 30 days #2 ea 2-Rashard) polyethylene glycol 3350 17 gram 17 g PO DAILY PRN for constipation 12/03/23 oral powder packet (HealthyLax) #30 packets diphenhydramine HCl 25 mg tablet 50 mg (2 x 25 mg) PO DIRECTED 12/05/23 (Allergy (diphenhydramine)) #1 tab sucralfate 1 gram tablet 1 g PO BID #180 tabs 03/08/24 losartan 50 mg tablet 50 mg PO DAILY 90 days #90 tabs 06/23/24 magnesium 250 mg tablet 250 mg PO DAILY 30 days #30 tabs 08/02/24 acetaminophen 300 mg-codeine 30 mg 1 tab PO BID PRN severe pain 08/16/24 tablet (scale score 7-10) #6 tabs walker (Ultra-Light Rollator misc) #1 ea 08/19/24 rabeprazole 20 mg tablet,delayed 20 mg PO BID #180 tabs 08/30/24 release metformin 500 mg tablet,extended 1,000 mg (2 x 500 mg) PO BID 90 08/31/24 release 24 hr days #360 tabs atorvastatin 40 mg tablet 40 mg PO DAILY #90 tabs 10/09/24 blood pressure monitor #1 ea 10/14/24 gabapentin 100 mg capsule 100 mg PO BID 15 days #30 caps 11/01/24 prednisone 10 mg tablet See Rx Instructions PO .COMPLEX 11/08/24 #42 tabs adalimumab 40 mg/0.4 mL 40 mg (0.4 mL) subcut Q2W #2 ea 11/23/24 subcutaneous pen kit (Humira(CF) Pen) tirzepatide 2.5 mg/0.5 mL 2.5 mg (0.5 mL) subcut QWEEK 4 11/24/24 subcutaneous pen injector weeks #2 mL (Mounjaro) cetirizine 10 mg tablet (Zyrtec) 10 mg PO DAILY PRN allergy 11/27/24 symptoms #30 tabs prednisone 50 mg tablet 50 mg PO DAILY #3 tabs 11/30/24 Allergies Allergy/AdvReac Type Severity Reaction Status Date / Time dicyclomine [From BENTYL] Allergy Unknown HIVES Verified 11/30/24 15:28 hydrocodone [HYDROCODONE] Allergy Unknown UNKNOWN Verified 11/30/24 15:28 ibuprofen [From MOTRIN] Allergy Unknown HIVES Verified 11/30/24 15:28 Iodinated Contrast Media Allergy Unknown ITCHING Verified 11/30/24 15:28 [IV CONTRAST] minocycline [MINOCYCLINE] Allergy Unknown UNK Verified 11/30/24 15:28 morphine [MORPHINE] Allergy Unknown UNKNOWN Verified 11/30/24 15:28 naproxen [NAPROXEN] Allergy Unknown UNKOWN Verified 11/30/24 15:28 peanut [PEANUT] Allergy Unknown HIVES Verified 11/30/24 15:28 sulfamethoxazole Allergy Unknown UNKNOWN Verified 11/30/24 15:28 [From BACTRIM] tramadol [TRAMADOL] Allergy Unknown UNK Verified 11/30/24 15:28 trimethoprim [From BACTRIM] Allergy Unknown UNKNOWN Verified 11/30/24 15:28 lisinopril Allergy Abdominal Verified 11/30/24 15:28 Pain methotrexate Allergy Joint Pain Verified 11/30/24 15:28 metronidazole [From Flagyl] Allergy Hives Verified 11/30/24 15:28 glipizide AdvReac Intermediate neuropathy Verified 11/30/24 15:28 amitriptyline [AMITRIPTYLINE] AdvReac Mild HYPER Verified 11/30/24 15:28 metoclopramide [From REGLAN] AdvReac Mild HYPER Verified 11/30/24 15:28 latex [LATEX] AdvReac Unknown RASH Verified 11/30/24 15:28 phenylephrine [PHENYLEPHRINE] AdvReac Unknown UNKNOWN Verified 11/30/24 15:28 promethazine [From PHENERGAN] AdvReac Unknown UNK Verified 11/30/24 15:28 glipizide Allergy Mild Rash Uncoded 11/30/24 15:28 SHELLFISH Allergy Unknown HIVES Uncoded 11/30/24 15:28 Review of Systems Review of Systems: Constitutional: No fever, chills, fatigue, night sweats, weight changes ENT/Mouth: No ear pain, hearing loss, nasal congestion, sinus pain, rhinorrhea, sore throat Eyes: No eye pain, swelling, redness, vision changes, discharge Cardio: No chest pain, palpitations, LEVINE, orthopnea, peripheral edema Pulm: No SOB, cough, sputum, wheezing, dyspnea, hemoptysis GI: No nausea, vomiting, hematemesis, abdominal pain, diarrhea, constipation, hematochezia, melena : No irregular bleeding, dysuria, frequency, urgency, hesitancy, hematuria, flank pain, urinary flow changes, urinary incontinence or retention MSK: No back pain, neck pain, joint pain, myalgias Skin: No lesions, +rash Neuro: No weakness, numbness, paresthesias, LOC, dizziness, headache Psych: No anxiety/panic, depression, SI/HI, AH/VH All other systems reviewed and are negative. [facility] Past Medical History Medical History HTN (hypertension) Migraine GERD (gastroesophageal reflux disease) Diabetes Surgical History Hx of colonoscopy History of esophagogastroduodenoscopy (EGD) S/P carpal tunnel release Family History Family History Maternal Grandmother Colon cancer Social History Social History Housing: Apartment Alcohol intake: never Patient Tobacco Use Status: Never used Tobacco e-Cigarette/Vaping Use: Never Used Second Hand Smoke Exposure: No Advance Directives Date on File: 04/25/23 service: No Current occupational status: disabled Cognitive needs: No Hearing needs: No Vision needs: No Physical Exam ED Vital Signs: Vital Signs - 24 hr 11/27/24 17:22 11/27/24 17:48 Temperature 98.0 F 98.0 F Pulse Rate 94 94 Respiratory Rate 20 20 Blood Pressure 176/92 H 176/92 H Pulse Oximetry 96 96 Oxygen Delivery Method Room Air Room Air BMI result Body Mass Index 26.8 hypertensive, vitals otherwise wnl General: Well appearing, in no acute distress. Skin: +small area of raised erythematous welts to left anterior thigh, no obvious welts to torso or extremities. no open skin wounds. no increased warmth. No sloughing. Spares palms/ soles/ mucous membranes/ webbed spaces. non dermatomal pattern. No target lesions Head: Normocephalic, atraumatic. EENT: Hearing is intact b/l. Conjunctiva clear. PERRLA. EOM intact. Moist mucous membranes.?tongue/ lips without swelling. posterior oropharynx wnl. Neck: Supple without LAD Cardiac: Chest wall symmetric. RRR Lungs: airway patent. Normal respiratory effort without accessory muscle use. CTA bilaterally. No rales, rhonchi, or wheezes.? Abdomen: Soft, non-tender, non-distended. No rebound tenderness or guarding. Positive BS x4. Ext: Upper and lower extremities atraumatic, without tenderness, deformity, swelling or erythema Neuro: AOx3. Normal speech. Ambulating with steady gait. Psych: Appropriate mood and affect. Responds appropriately to questions. Course Course Course Narrative: On exam there is slight urticaria noted to left thigh. No appreciable urticara on right thigh or torso. she was treated with decadron in ED today. I do not have concern for angioedema or anaphylaxsi. Given patient reports improvement with benadryl, advised to continue at home. She is currently on a steroid taper (has about 1 week left) and I am hesitant on increasing her dose due to her hyperglycemia. Will add zyrtec to her current regimen. I do not feel as though blood work is warranted at this time. Ultimately, her symptoms are improving with her current medications. Reiterated discontinuing the enbrel injections. i have provided her with a referral to an treasury management sales consultant as I feel she may require updated allergy testing. Patient has remained stable throughout ED visit today. Discussed worrisome signs and symptoms and when to return to the ED. All questions answered at this time. Patient is agreeable with disposition and stable for discharge. Medications Administered Discontinued Medications Generic Name Dose Route Start Last Admin Trade Name Freq PRN Reason Stop Dose Admin Dexamethasone Sodium Phosphate 8 mg 11/27/24 14:55 11/27/24 17:23 Dexamethasone Sod Phosphate 4 Mg/Ml Vial IVPUSH 11/27/24 14:56 8 mg ONCE ONE Administration Medical Decision Making Medical Decision Making MDM Narrative: 69 year old female with pmhx significant for T2DM, HTN, HDL, IBS, GERD, hiatal hernia, and RA presents to the ED today for evaluation of hives to bilateral thighs x1 week. She is hypertensive, vitals are otherwise wnl. She is nontoxic appearing and in NAD. On exam, small area of raised erythematous welts to left anterior thigh, no obvious welts to torso or extremities. no open skin wounds. no increased warmth. No sloughing. Spares palms/ soles/ mucous membranes/ webbed spaces. non dermatomal pattern. No target lesions. no respiratory distress, no tripoding, no accessory muscle use. Airway is patent, tongue/ lips wnl, posterior oropharynx wnl, lungs are CTA b/l. Patient's rash is consistent with urticaria. Differential diagnosis includes contact/atopic/eczematous dermatitis, psoriasis. History and exam findings not consistent with lyme/tick bourne illness, herpes zoster/simplex, scabies, HFM, dangerous etiologies of rash such as SJS/TEN, or secondary dangerous causes such as petechial rashes from thrombocytopenia or rickettsial infections. Unlikely angioedema, anaphylaxis.? Plan at this time is to treat symptomatically, instruct to follow up with PCP or derm PRN. Differential Diagnosis Differential Diagnoses: The differential diagnosis associated with the presentation includes as above. Admission/Observation not indicated. Prescription Management I considered prescription management with: Other (steroid, antihistamine) Chronic Conditions Patient?s care impacted by: Other (RA) Social Determinants Patient?s care significantly limited by Social Determinants of Health including: Other Social Determinant of Health Critical Care Time Critical Care Time Critical Care Time: No Discharge Plan Discharge Clinical Impression: Hives Patient Disposition: Home, Self-Care Instructions: Acute Rash (ED) Additional Instructions: You were evaluated in the ED today for hives. As discussed, complete your prednisone course. You may continue taking Benadryl at home. I am sending cetirizine to your pharmacy. Take this daily for itching. As discussed, follow up with your PCP and rn document improvement specialist. I have also provided you with a referral. Return with new or worsening symptoms. In the ethan of an emergency call 911. Prescriptions: New cetirizine [Zyrtec] 10 mg tablet 10 mg PO DAILY PRN (Reason: allergy symptoms) Qty: 30 0RF No Action (DME) blood-glucose meter [FreeStyle [place] Lite] Kit See Rx Instructions .Route Qty: 1 0RF Rx Instructions: As directed (DME) FreeStyle Test Strip See Rx Instructions .Route Qty: 100 1RF Rx Instructions: As directed (DME) lancets [FreeStyle Lancets] 28 gauge misc See Rx Instructions .ROUTE .MEDSUPPLY Qty: 100 3RF Rx Instructions: As directed polyethylene glycol 3350 [HealthyLax] 17 gram powder in packet 17 g PO DAILY PRN (Reason: for constipation) Qty: 30 2RF sucralfate 1 gram tablet 1 g PO BID Qty: 180 0RF losartan 50 mg tablet 50 mg PO DAILY 90 Days Qty: 90 1RF magnesium 250 mg tablet 250 mg PO DAILY 30 Days Qty: 30 3RF (DME) Ultra-Light Rollator Misc See Rx Instructions .Route Qty: 1 0RF Rx Instructions: As directed rabeprazole 20 mg tablet,delayed release (DR/EC) 20 mg PO BID Qty: 180 1RF metformin 500 mg tablet extended release 24 hr 1,000 mg PO BID 90 Days Qty: 360 1RF atorvastatin 40 mg tablet 40 mg PO DAILY Qty: 90 1RF gabapentin 100 mg capsule 100 mg PO BID 15 Days Qty: 30 0RF Humira(CF) Pen 40 mg/0.4 mL pen injector kit 40 mg subcut Q2W Qty: 2 4RF Mounjaro 2.5 mg/0.5 mL pen injector 2.5 mg subcut QWEEK 28 Days Qty: 2 3RF Rx Instructions: for 4 weeks acetaminophen-codeine 300-30 mg tablet 1 tab PO BID PRN (Reason: severe pain (scale score 7-10)) Qty: 6 0RF prednisone 50 mg tablet 50 mg PO DAILY Qty: 3 0RF triamcinolone acetonide 0.1 % cream 1 appl topical DAILY 15 Days Qty: 30 1RF epinephrine [EpiPen 2-Rashard] 0.3 mg/0.3 mL auto-injector 0.3 mg IM Q4H PRN (Reason: anaphylaxis) 30 Days Qty: 2 0RF (DME) blood pressure monitor Kit See Rx Instructions .Route Qty: 1 0RF Rx Instructions: As directed prednisone 10 mg tablet See Rx Instructions PO .COMPLEX Qty: 42 0RF Rx Instructions: Take 3 tabs daily for 1 week then 2 tabs daily for 1 week then 1 tab daily for 1 week then stop diphenhydramine HCl [Allergy (diphenhydramine)] 25 mg tablet 50 mg PO DIRECTED Qty: 1 0RF Rx Instructions: Diphenhydramine 50 mg PO, 1 hour before contrast media injection for CAT. Referrals: Bret Fuentes MD [Physician] - Celso Mathur PA-C [Primary Care Provider] - Interventions: ED Discharge Assessment Last Done: 11/27/24 17:48 Discharge Date/Time: 11/27/24 17:49 Print Language: Maori
[2024-11-27] MEDS: dexAMETHasone sod phosphate 4 MG/ML VIAL 8 MG IVPUSH (17:23)
[2024-11-27 17:48] VITALS: BP 176/92; PULSE 94; RESP 20; TEMP 36.7; O2SAT 96
== END 2024-11-27 17:49 | disposition home or self-care (01) ==
PROVIDERS: Emergency Provider Internal Medicine; PCP Physician Assistant
DX: L50.9 Urticaria, unspecified (principal)
CPT/HCPCS: 96374; 99282; 99284; J1100

== ENCOUNTER 2024-11-30 10:56 | Emergency (ER) | payer OTHER, SELFPAY ==
[2024-11-30 11:03] VITALS: BP 182/89; PULSE 80; RESP 18; TEMP 37.2; O2SAT 98; BMI 26.4
--- NOTE | 2024-11-30 11:04 | ED.ALLEREA ---
HPI - Allergic Reaction General Chief complaint: Allergic Reaction Stated complaint: Sent by Dr Tamia dawson to [facility] Time Seen by Provider: 11/30/24 13:30 Source: patient Mode of arrival: ambulatory Limitations: no limitations History of Present Illness ED Provider: Dr. Megan Collado HPI narrative: Patient comes to emergency room complaining of a scratchy throat sensation for 72 hours. Patient states that 3 days ago she was seen here in the emergency room for hives which patient believes had an allergic reaction to Enbrel injections. Patient states that 3 days ago, she presented to the emergency room with hives, itching. However, patient states that this time she has no hives, no itching, just a weird sensation in her throat which has been present after she took the 1st dose of Zyrtec. Patient states that since then she has not had any worsening of symptoms. Denies shortness of breath, denies any new symptoms Related Data Previous Rx's ?Medication ?Instructions ?Recorded triamcinolone acetonide 0.1 % 1 appl topical DAILY 15 days #30 04/24/22 topical cream grams blood sugar diagnostic (FreeStyle #100 ea 02/27/23 Test strips) blood-glucose meter (FreeStyle #1 ea 02/27/23 [place] Lite kit) lancets 28 gauge (FreeStyle #100 ea 03/15/23 Lancets) epinephrine 0.3 mg/0.3 mL 0.3 mg (0.3 mL) IM Q4H PRN 03/25/23 injection, auto-injector (EpiPen anaphylaxis 30 days #2 ea 2-Rashard) polyethylene glycol 3350 17 gram 17 g PO DAILY PRN for constipation 12/03/23 oral powder packet (HealthyLax) #30 packets diphenhydramine HCl 25 mg tablet 50 mg (2 x 25 mg) PO DIRECTED 12/05/23 (Allergy (diphenhydramine)) #1 tab sucralfate 1 gram tablet 1 g PO BID #180 tabs 03/08/24 losartan 50 mg tablet 50 mg PO DAILY 90 days #90 tabs 06/23/24 magnesium 250 mg tablet 250 mg PO DAILY 30 days #30 tabs 08/02/24 acetaminophen 300 mg-codeine 30 mg 1 tab PO BID PRN severe pain 08/16/24 tablet (scale score 7-10) #6 tabs walker (Ultra-Light Rollator mis) #1 ea 08/19/24 rabeprazole 20 mg tablet,delayed 20 mg PO BID #180 tabs 08/30/24 release metformin 500 mg tablet,extended 1,000 mg (2 x 500 mg) PO BID 90 08/31/24 release 24 hr days #360 tabs atorvastatin 40 mg tablet 40 mg PO DAILY #90 tabs 10/09/24 blood pressure monitor #1 ea 10/14/24 gabapentin 100 mg capsule 100 mg PO BID 15 days #30 caps 11/01/24 prednisone 10 mg tablet See Rx Instructions PO .COMPLEX 11/08/24 #42 tabs adalimumab 40 mg/0.4 mL 40 mg (0.4 mL) subcut Q2W #2 ea 11/23/24 subcutaneous pen kit (Humira(CF) Pen) tirzepatide 2.5 mg/0.5 mL 2.5 mg (0.5 mL) subcut QWEEK 4 11/24/24 subcutaneous pen injector weeks #2 mL (Mounjaro) cetirizine 10 mg tablet (Zyrtec) 10 mg PO DAILY PRN allergy 11/27/24 symptoms #30 tabs prednisone 50 mg tablet 50 mg PO DAILY #3 tabs 11/30/24 Allergies Allergy/AdvReac Type Severity Reaction Status Date / Time dicyclomine [From BENTYL] Allergy Unknown HIVES Verified 11/30/24 11:05 hydrocodone [HYDROCODONE] Allergy Unknown UNKNOWN Verified 11/30/24 11:05 ibuprofen [From MOTRIN] Allergy Unknown HIVES Verified 11/30/24 11:05 Iodinated Contrast Media Allergy Unknown ITCHING Verified 11/30/24 11:05 [IV CONTRAST] minocycline [MINOCYCLINE] Allergy Unknown UNK Verified 11/30/24 11:05 morphine [MORPHINE] Allergy Unknown UNKNOWN Verified 11/30/24 11:05 naproxen [NAPROXEN] Allergy Unknown UNKOWN Verified 11/30/24 11:05 peanut [PEANUT] Allergy Unknown HIVES Verified 11/30/24 11:05 sulfamethoxazole Allergy Unknown UNKNOWN Verified 11/30/24 11:05 [From BACTRIM] tramadol [TRAMADOL] Allergy Unknown UNK Verified 11/30/24 11:05 trimethoprim [From BACTRIM] Allergy Unknown UNKNOWN Verified 11/30/24 11:05 lisinopril Allergy Abdominal Verified 11/30/24 11:05 Pain methotrexate Allergy Joint Pain Verified 11/30/24 11:05 metronidazole [From Flagyl] Allergy Hives Verified 11/30/24 11:05 glipizide AdvReac Intermediate neuropathy Verified 11/30/24 11:05 amitriptyline [AMITRIPTYLINE] AdvReac Mild HYPER Verified 11/30/24 11:05 metoclopramide [From REGLAN] AdvReac Mild HYPER Verified 11/30/24 11:05 latex [LATEX] AdvReac Unknown RASH Verified 11/30/24 11:05 phenylephrine [PHENYLEPHRINE] AdvReac Unknown UNKNOWN Verified 11/30/24 11:05 promethazine [From PHENERGAN] AdvReac Unknown UNK Verified 11/30/24 11:05 glipizide Allergy Mild Rash Uncoded 11/30/24 11:05 SHELLFISH Allergy Unknown HIVES Uncoded 11/30/24 11:05 Review of Systems Review of Systems: Constitutional : No Weight loss, No Fever, No Chills, No Night Sweats, No Fatigue, No Malaise ENT/Mouth : No Hearing loss, No Ear Pain, No Nasal Congestion, No Sinus Pain, No Hoarseness, scratchy throat sensation, No sore throat, No Rhinorrhea, No Swallowing Difficulty Eyes: No Eye Pain, No Swelling, No Redness, No Foreign Body, No Discharge, No Vision Changes Cardiovascular : No Chest Pain, No SOB, No Dyspnea on Exertion, No Orthopnea, No Edema, No Palpitations Respiratory : No Cough, No Sputum, No Wheezing, No Smoke Exposure, No Dyspnea Gastrointestinal : No Nausea, No Vomiting, No Diarrhea, No Constipation, No abdominal Pain, No Hematochezia, No Melena Genitourinary : no irregular bleeding, No Dysuria, No Urinary Frequency, No Hematuria, No Urinary Incontinence, No Urgency, No Flank Pain, No Urinary Flow Changes, No Hesitancy Musculoskeletal : No joint pain, No Myalgias, No Joint Swelling Skin : No Skin Lesions, No rash Neuro : No Weakness, No Numbness, No Paresthesias, No Loss of Consciousness, No Dizziness, No Headache Psych : No Anxiety/Panic, No Depression, No SI/HI/AH/VH, No Social Issues, Heme/Lymph: No Bruising, No Bleeding,No Lymphadenopathy Endocrine : No Polyuria, No Polydipsia, No Temperature Intolerance PMFSH Past Medical History Medical History HTN (hypertension) Migraine GERD (gastroesophageal reflux disease) Diabetes Surgical History Hx of colonoscopy History of esophagogastroduodenoscopy (EGD) S/P carpal tunnel release Family History Family History Maternal Grandmother Colon cancer Social History Social History Housing: Apartment Alcohol intake: never Patient Tobacco Use Status: Never used Tobacco e-Cigarette/Vaping Use: Never Used Second Hand Smoke Exposure: No Advance Directives Date on File: 04/25/23 service: No Current occupational status: disabled Cognitive needs: No Hearing needs: No Vision needs: No Physical Exam ED Vital Signs: Vital Signs - 24 hr 11/30/24 11:03 Temperature 98.9 F Pulse Rate 80 Respiratory Rate 18 Blood Pressure 182/89 H Pulse Oximetry 98 Oxygen Delivery Method Room Air BMI result Body Mass Index 26.4 Const Other: Appearance: Alert. Oriented X3. No acute distress. Eyes: Pupils equal, round and reactive to light. ENT: Mildly erythematous, no angioedema Neck: Normal inspection. Neck supple. No lymph nodes noted. No crepitus CVS: Normal heart rate and rhythm. Pulses normal. Normal S1 and S2 Respiratory: No respiratory distress. Breath sounds normal. No Wheezing. No rales Abdomen: Soft and nontender. No rigidity. No distention. Skin: Skin warm and dry. Normal skin color. Normal skin turgor. No hives Extremities: No lower extremity edema. No Lacerations. No Rash Neuro: Oriented X 3. No motor deficit. No sensory deficit. Moving all extremities. No slurred speech. CN 2 through 12 grossly intact Psych: calm, cooperative, normal affect Course Course Course Narrative: This is an RME: Additional HPI, ROS, PE not included below will be deferred to primary provider. RME assessment and note performed by: Torrie Gautam PA-C This is a 89-xpls-pho-female, with a hx of T2DM, HTN, HDL, IBS, GERD, hiatal hernia, and RA, who presents to the ER with a complaint of ?allergic reaction. She states that she has a sore throat. She was seen here on 11/27/2024 from a new intramuscular medication for her RA 2 weeks ago. She states that she was discharged on cetirizine, which she took 1 dose on 11/27, and 11/28, and 127, she states that she took Benadryl as she felt as though her throat was closing. She states that her throat is sore. Oropharynx is mildly erythematous, widely patent. No wheezes noted. She was already on prednisone. No rashes appreciated. Did not take Benadryl today. She was given a dose of decadron on 11/27/2024 Plan: Swabs, further ER evaluation needed. Medical Decision Making Medical Decision Making MDM Narrative: Patient does not have any concerning signs for an allergic reaction or anaphylaxis. Patient has been having a scratchy throat sensation for 7 do hours, no angioedema present. Physical exam is normal other than mildly erythematous oropharynx , which is likely from patient constantly clearing her voice. Patient was given a dose of p.o. prednisone here in the emergency room. I discussed with the patient that she may benefit from a skin scratched test from an block setter gypsum, patient states that she has an appointment pending, might be in months. I asked the patient do discontinued taking Zyrtec. Patient will be given a small dose of prednisone for the next few days. Overall, patient is well-appearing, normal vitals, no suspicion for anaphylaxis or angioedema Lab Data Labs: Lab Results 11/30/24 Range/Units 11:13 Influenza Type A (PCR) NEGATIVE (Negative) Influenza Type B (PCR) NEGATIVE (Negative) RSV RNA Qual (PCR) NEGATIVE (Negative) SARS-CoV-2 RNA (RT-PCR) NEGATIVE (Negative) S. pyogenes GrpA MONICA Negative (Negative) Discharge Plan Discharge Clinical Impression: Allergic reaction Patient Disposition: Home, Self-Care Instructions: General Allergic Reaction (ED) Additional Instructions: Please follow-up with your primary care physician tomorrow. If you have any worsening or new symptoms, please return to the emergency room or call 911 Prescriptions: New prednisone 50 mg tablet 50 mg PO DAILY Qty: 3 0RF No Action (DME) blood-glucose meter [FreeStyle [place] Lite] Kit See Rx Instructions .Route Qty: 1 0RF Rx Instructions: As directed (DME) FreeStyle Test Strip See Rx Instructions .Route Qty: 100 1RF Rx Instructions: As directed (DME) lancets [FreeStyle Lancets] 28 gauge misc See Rx Instructions .ROUTE .MEDSUPPLY Qty: 100 3RF Rx Instructions: As directed polyethylene glycol 3350 [HealthyLax] 17 gram powder in packet 17 g PO DAILY PRN (Reason: for constipation) Qty: 30 2RF sucralfate 1 gram tablet 1 g PO BID Qty: 180 0RF losartan 50 mg tablet 50 mg PO DAILY 90 Days Qty: 90 1RF magnesium 250 mg tablet 250 mg PO DAILY 30 Days Qty: 30 3RF (DME) Ultra-Light Rollator Misc See Rx Instructions .Route Qty: 1 0RF Rx Instructions: As directed rabeprazole 20 mg tablet,delayed release (DR/EC) 20 mg PO BID Qty: 180 1RF metformin 500 mg tablet extended release 24 hr 1,000 mg PO BID 90 Days Qty: 360 1RF atorvastatin 40 mg tablet 40 mg PO DAILY Qty: 90 1RF gabapentin 100 mg capsule 100 mg PO BID 15 Days Qty: 30 0RF Humira(CF) Pen 40 mg/0.4 mL pen injector kit 40 mg subcut Q2W Qty: 2 4RF Mounjaro 2.5 mg/0.5 mL pen injector 2.5 mg subcut QWEEK 28 Days Qty: 2 3RF Rx Instructions: for 4 weeks acetaminophen-codeine 300-30 mg tablet 1 tab PO BID PRN (Reason: severe pain (scale score 7-10)) Qty: 6 0RF cetirizine [Zyrtec] 10 mg tablet 10 mg PO DAILY PRN (Reason: allergy symptoms) Qty: 30 0RF triamcinolone acetonide 0.1 % cream 1 appl topical DAILY 15 Days Qty: 30 1RF epinephrine [EpiPen 2-Rashard] 0.3 mg/0.3 mL auto-injector 0.3 mg IM Q4H PRN (Reason: anaphylaxis) 30 Days Qty: 2 0RF (DME) blood pressure monitor Kit See Rx Instructions .Route Qty: 1 0RF Rx Instructions: As directed prednisone 10 mg tablet See Rx Instructions PO .COMPLEX Qty: 42 0RF Rx Instructions: Take 3 tabs daily for 1 week then 2 tabs daily for 1 week then 1 tab daily for 1 week then stop diphenhydramine HCl [Allergy (diphenhydramine)] 25 mg tablet 50 mg PO DIRECTED Qty: 1 0RF Rx Instructions: Diphenhydramine 50 mg PO, 1 hour before contrast media injection for CAT. Print Language: Albanian
[2024-11-30 11:30] LABS: IDNOW Serial# 58CA691E; Strep A Nucleic Acid Negative (Negative)
[2024-11-30 11:58] LABS: Influenza A PCR NEGATIVE (Negative); Influenza B PCR NEGATIVE (Negative); Resp Syncy Virus RNA Qual PCR NEGATIVE (Negative); SARS COV2 PCR INHOUSE NEGATIVE (Negative)
[2024-11-30] MEDS: predniSONE 20 MG TABLET 60 MG PO (14:00)
--- NOTE | 2024-11-30 14:05 | PC.NURSE ---
pt ambulated with t/w and heat treat technician- pt SpO2 ranging from 92-94% on RA
[2024-11-30 14:10] VITALS: BP 182/89; PULSE 80; RESP 18; TEMP 37.2; O2SAT 98
--- OUTSIDE RECORDS SUMMARY | 2024-11-30 15:00 | XMS_ITS | Clinical Summary ---
Author Organization 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 Name Role Phone Celso Mathur Primary Care Provider Allergies Active Allergy Reactions Criticality Noted Date Comments Amitriptyline 08/09/2020 Swoope hyper Dicyclomine Hives,Rash 07/14/2014 Dicyclomine Hydrocodone-Acetaminophen Hives 07/14/2014 Ibuprofen Anaphylaxis High 05/19/2006 Naproxen Iodinated Contrast Media 08/09/2020 Itching, agitated Lactose 08/09/2020 Latex 08/09/2020 Itchy with contact, no hives Lisinopril Cough 01/31/2021 Metoclopramide Rash 05/19/2006 Reglan Minocycline 08/09/2020 hyperactive Phenylephrine 08/09/2020 hyper Promethazine 08/09/2020 hives Shellfish Containing Products 08/09/2020 anaphlaxis Sulfa (Sulfonamide Antibiotics) 08/21/2020 Rash/dermatitis Sulfamethoxazole-Trimethopri m Rash 05/19/2006 Tramadol Hives 08/09/2020 Medications Medication Sig Dispensed Refills Start Date End Date Status acetaminophen (TYLENOL ARTHRITIS PAIN ORAL) Take by mouth. Active atorvastatin (LIPITOR) 40 mg tablet Take 1 Tab by mouth every evening. 12/29/2020 Active losartan (COZAAR) 25 mg tablet Take 1 Tab by mouth daily. 01/31/2021 Active metFORMIN XR (GLUCOPHAGE-XR) 500 mg 24 hr tablet TAKE 4 TABLETS BY MOUTH EVERY DAY IN THE MORNING WITH BREAKFAST 07/10/2021 Activ e polyethylene glycol (MIRALAX) 17 gram packet DISSOLVE 1 PACKET WITH 8 OUNCES OF LIQUID AND DRINK DAILY 08/08/2021 Active predniSONE (DELTASONE) 5 mg tablet TAKE 2 TABS DAILY FOR 2 WEEKS THEN 1 TAB DAILY FOR 2 WEEKS THEN STOP 09/13/2024 Active magnesium oxide 250 mg magnesium tablet Take 1 tablet (250 mg total) by mouth 1 (one) time each day. 08/02/2024 Active Mounjaro 2.5 mg/0.5 mL injection INJECT 2.5 MG (0.5 ML) SUBCUTANEOUSLY EVERY WEEK FOR 4 WEEKS 08/25/2024 Active RABEprazole (ACIPHEX) 20 mg EC tablet Take 1 tablet (20 mg total) by mouth 1 (one) time each day. 08/27/2024 Active folic acid (FOLVITE) 1 mg tablet Take 1 tablet (1,000 mcg total) by mouth 1 (one) time each day. 09/24/2024 Active Attentive.lyTouch Ultra Test test strip USE TO TEST ONCE DAILY DIRECTED 12/27/2023 Active acetaminophen-code ine (TYLENOL #3) 300-30 mg per tablet TAKE 1 TABLET BY MOUTH 2 TIMES A DAY NEEDED FOR SEVERE PAIN (SCALE SCORE 7-10) 08/16/2024 Active methotrexate 2.5 mg tablet TAKE 6 TABLETS BY MOUTH WEEKLY 09/15/2024 Active Active Problems Problem Noted Date Diagnosed Date Fatty liver 09/20/2024 Overview (09/20/2024): Elevated liver enzymes GERD (gastroesophageal reflux disease) 4 Hyperlipidemia 09/20/2024 Type 2 diabetes mellitus with renal complication 09/20/2024 COVID-19 virus infection 01/31/2021 Overview (09/20/2024): 11/2020 per patient Abnormal mammogram of left breast 12/26/2020 Overview (09/20/2024): 12/2020, ordering diagnostic mammo and u/s Anxiety 08/09/2020 Aortic atherosclerosis 08/09/2020 Carpal tunnel syndrome 08/09/2020 Overview (09/20/2024): Bilateral, 05/2019 Left CTR Cataract 08/09/2020 Overview (09/20/2024): Bilateral Cholelithiasis 08/09/2020 Diabetic neuropathy 08/09/2020 Overview (09/20/2024): Feet Glaucoma suspect 08/09/2020 Overview (09/20/2024): Left eye Hypertension 08/09/2020 Lactose intolerance 08/09/2020 Microalbuminuria 08/09/2020 Migraines 08/09/2020 Overview (09/20/2024): episodic Nephrolithiasis 08/09/2020 Seasonal allergies 08/09/2020 Slow transit constipation 08/09/2020 Type 2 diabetes mellitus with cataract 0 Type 2 diabetes mellitus with neurologic complic ation 08/09/2020 Encounters Date Type Department Care Team Description 10/18/2024 3:30 PM EST Office Visit Obstetrics and Gynecology - [address] [phone] Kristina Earl MD Vaginal inclusion cyst [N89.8] (Primary Dx) 10/11/2024 1:30 PM EST Office Visit Obstetrics and Gynecology - [address] [phone] Maame Main CNM Vaginal odor (Primary Dx); Abnormal urine odor; Vaginal cyst 09/17/2024 Telephone Obstetrics and Gynecology - [address] [phone] Sandra Clayton CNM Vaginal/vulvar Complaint from Last 3 Months Immunizations Name Administration Dates Next Due Pneumococcal conjugate 13 va lent (Prevnar 13, PCV13) 2mo and older 09/17/2019 Pneumococcal polysaccharide 23 valent (Pneumovax 23) 2yo and older 01/01/2016 Surgical History Surgery Date Site/Laterality Comments KIDNEY STONE SURGERY 04/2014 PROCEDURE: GA NEPHROLITHOTOMY REMOVAL CALCULUS; COMMENT: x 3 TUBAL LIGATION PROCEDURE: HISTORICAL TUBAL LIGATION COLONOSCOPY 04/26/2011 PROCEDURE: HISTORICAL COLONOSCOPY; COMMENT: Diverticulosis, Repeat 10 yrs UPPER GASTROINTESTINAL ENDOSCOPY 09/24/2002 PROCEDURE: GA UPPER GI ENDOSCOPY PERFORMED; COMMENT: hiatal hernia, mod retained bile suggestive of decreased gastric emptying UPPER GASTROINTESTINAL ENDOSCOPY 05/20/2012 PROCEDURE: GA UPPER GI ENDOSCOPY PERFORMED; COMMENT: Reactive gastropathy OTHER SURGICAL HISTORY 07/23/2016 PROCEDURE: HISTORY OTHER; COMMENT: vocal cord polyps removed, Dr Altaf Nicole CARPAL TUNNEL RELEASE 05/2019 Left PROCEDURE: HISTORICAL CARPAL TUNNEL REL UPPER GASTROINTESTINAL ENDOSCOPY 11/05/2018 PROCEDURE: GA UPPER GI ENDOSCOPY PERFORMED; COMMENT: Functional dyspepsia Medical History Medical History Date Comments Hyperlipidemia DX:Hyperlipidemi a GERD (gastroesophageal reflux disease) DX:GERD (gastroesophageal reflux disease) 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 (CMS/HCC) DX:Type 2 diabetes mellitus with renal complication (HCC) Microalbuminuria 08/09/2020 DX:Microalbumin uria Nephrolithiasis 08/09/2020 DX:Nephrolithias is Anxiety 08/09/2020 DX:Anxiety Lactose intolerance 08/09/2020 DX:Lactose i ntolerance Cholelithiasis 08/09/2020 DX:Cholelithiasi s Diabetic neuropathy (CMS/HCC) 08/09/2020 DX :Diabetic neuropathy (HCC); COMMENT: Feet Type 2 diabetes mellitus wit h neurologic complication (CMS/HCC) 08/09/2020 DX:Type 2 diabetes m ellitus with neurologic complication (HCC) Seasonal allergies 08/09/2020 DX:Seasonal a llergies Slow transit constipation 08/09/2020 DX:Slo w transit constipation Aortic atherosclerosis (CMS/HCC) 08/09/2020 DX:Aortic atherosclerosis (HCC) Cataract 08/09/2020 DX:Cataract; COM MENT: Bilateral Type 2 diabetes mellitus wit h cataract (CMS/HCC) 08/09/2020 DX:Type 2 diabetes mellitus with cataract (HCC) Glaucoma suspect 08/09/2020 DX:Glaucoma edenilson pect; COMMENT: Left eye Hypertension 08/09/2020 DX:Hypertension Migraines 08/09/2020 DX:Migraines; CO MMENT: episodic Fatty liver DX:Fatty liver; COMMENT: Elevated liver enzymes Carpal tunnel syndrome 08/09/2020 DX:Carpal tunnel syndrome; COMMENT: Bilateral, 05/2019 Left CTR Family History Medical History Relation Name Comments Other: Drug Overdose Brother 1 Diabetes Brother 2 CAD Diabetes Brother 3 Fell from a boss lding Diabetes Brother 4 Diabetes Brother 5 Hypertension Brother 6 Heart attack Brother 7 Diabetes Mother Hypertension, M I, Blood Clots Thyroid disease Sister Relation Name Status Comments Brother 1 Brother 2 diabetes Brother 3 diabetes Brother 4 Alive diabetes Brother 5 Brother 6 Brother 7 Brother 8 Alive Father Mother Sister Alive Social History Tobacco Use Types Packs/Day Years Used Date Smoking Tobacco: Never Smokeless Tobacco: Never Alcohol Use Standard Drinks/Week Comments No 0 (1 standard drink = 0.6 oz pur e alcohol) Housing Instability Answer Date Recorde d Are you worried that in the next 2 months you may not have stable housing? Patient declined 10/04/2024 Food Access & Nutrition Answer Date Rec orded Do you have access to a vari ety of food including fruits and vegetables? Patient declined 10/04/2024 Health Literacy Answer Date Recorded How often do you need to hav e someone help you when you read instructions, pamphlets, or other written material from your doctor or pharmacy? Patient declined 10/04/2024 Caregiver: How often do you need to have someone help you when you read instructions, pamphlets, or other written material from your doctor or pharmacy? Not on file Financial Risk Answer Date Recorded How hard is it for you to pa y for the very basics like food, housing, medical care, and air conditioning / heating? Patient declined 10/04/2024 Transportation Answer Date Recorded Has the lack of transportati on kept you from meetings, work, or from getting things needed for daily living? Patient declined 10/04/2024 Has the lack of transportati on kept you from medical appointments or from getting medications? No 10/04/2024 Social Isolation Answer Date Recorded How often do you feel lonely or isolated from those around you? Patient declined 10/04/2024 Food Risk Answer Date Recorded Within the past 12 months we worried whether our food would run out before we got money to buy more. Unable to respond 024 Within the past 12 months th e food we bought just didn't last and we didn't have money to get more. Unable to respond 12/2023 Dependent Care Answer Date Recorded Do you need help finding or paying for care for your loved ones. For example, child welfare social worker or elderly care for an older adult? Patient declined 10/04/2024 Education Answer Date Recorded Do you think completing more education or training, like finishing a GED, going to college, or learning a trade, would be helpful for you? Patient declined 10/04/2024 Employment and Income Answer Date Recor ded During the last four weeks, have you been actively looking for work? Patient declined 10/04/2024 Living Situation Answer Date Recorded What is your living situation? 1 12/05/2023 Sex and Gender Information Value Date Recorded Sex Assigned at Not on file Gender Identity Not on file Sexual Orientation Not on file Job Start Date Occupation Industry Not on file Not on file Not on file Obstetrics History Para Term AB IAB SAB Ectopic Multiple Livin g Live Births 3 3 3 0 0 0 0 0 0 3 3 Date Outcome GA Total Labor Labor/2nd/3rd Weight Sex Type Anes PTL Magali A1 A5 Name Clin 1979 Term F Vag-S pont Living 1982 Term F Vag-S pont Living 1986 Term M Vag-S pont Living Last Filed Vital Signs Vital Sign Reading Time Taken Comments Blood Pressure 133/90 10/18/2024 3:28 PM EST Pulse 104 10/18/2024 3:28 PM EST Temperature - - Respiratory Rate 14 10/18/2024 3:28 PM EST Oxygen Saturation - - Inhaled Oxygen Concentration - - Weight 71.7 kg (158 lb) 10/18/2024 3:28 PM EST Height 162.6 cm (5' 4 ) 10/18/2024 3:28 PM EST Body Mass Index 27.12 10/18/2024 3:28 PM EST Plan of Treatment Health Maintenance Due Date Last Done Comments Breast Cancer Screening 1954 Diabetes: Annual Foot Exam 1964 Diabetes: Annual Retina Eye Exam 1964 Hepatitis A Vaccines (1 of 2 - Risk 2-dose series) 1973 Zoster Vaccines (1 of 2) 2004 Hepatitis B Vaccines (1 of 3 - Risk 3-dose series) 2014 RSV Immunization Patients 60+ Years Old (1 - Risk 60-74 years 1-dose series) 2014 Pneumococcal Vaccine: 65+ Years (3 of 3 - PPSV23 or PCV20) 12/31/2020 09/17/2019, 09/17/2019, 01/01/2016 Diabetes: Annual GFR (Glomerular Filtration Rate) 10/30/2021 10/30/2020 Colorectal Cancer Screening: Colonoscopy 10/06/2022 Falls Risk Assessment 10/06/2022 Hepatitis C Screening 10/06/2022 Osteoporosis Screening (Bone Density Screening) 10/06/2022 Diabetes: Annual Urine Albumin-Creatinine Ratio (uACR) 10/16/2022 10/30/2020 Diabetes: Blood Sugar Control Test (HGBA1C) 10/16/2022 10/30/2020 Hypertension/CHF/CAD Annual BMP Blood Test 10/16/2022 10/30/2020 Cholesterol Screening (Lipid Panel) 07/28/2025 07/28/2020 Depression Screening 10/04/2025 10/04/2024 Social Influencers of Health Screening 10/04/2025 10/04/2024 DTaP,Tdap,and Td Vaccines (4 - Td or Tdap) 11/04/2031 11/04/2021, 04/25/2013, 01/18/2008 COVID-19 Vaccine Completed 07/04/2024, 02/2024, 09/12/2022, Additional history exists Influenza Vaccine Completed 07/04/2024, , 07/02/2022, Additional history exists HIB Vaccines Aged Out No longer eligi ble based on patient's age to complete this topic HPV Vaccines Aged Out No longer eligi ble based on patient's age to complete this topic IPV Vaccines Aged Out No longer eligi ble based on patient's age to complete this topic MMR Vaccines Aged Out No longer eligi ble based on patient's age to complete this topic Meningococcal ACWY Vaccine Aged Out N o longer eligible based on patient's age to complete this topic RSV Immunization Patients Under 20 months Aged Out No longer eligible based on patient's age to complete this topic Varicella Vaccines Aged Out No longer eligible based on patient's age to complete this topic Procedures Procedure Name Priority Date/Time Associated Diagnosis Comments CULTURE URINE Routine 10/18/2024 11:55 AM EST Abnormal urine odor TRICHOMONAS VAGINALIS ANTIGEN Routine 10/11/2024 2:10 PM EST Vaginal odor CULTURE URINE Routine 10/11/2024 2:10 PM EST Abnormal urine odor WET PREP, GENITAL Routine 10/11/2024 2:1 0 PM EST Vaginal odor POC URINE AUTO W/O MICRO Routine 10/11/2024 2:05 PM EST Abnormal urine odor HM URINE ALBUMIN CREATININE RATIO Routine 10/30/2020 HM ANNUAL BMP BLOOD TEST Routine 10/30/2020 HEMOGLOBIN A1C Routine 10/30/2020 LIPID PANEL Routine 07/28/2020 from Last 3 Months or Most Recently Relevant to Health Maintenance Results * Culture urine (10/18/2024 11:55 AM EST) Only the most recent of2 resultswithin the time period is included. Culture, Urine No growth 10/19/2024 8:02 AM EST [facility] Urine Urine specimen obtained by clean catch procedure / Unknown Non-blood Collection / Unknown 10/18/2024 11:55 AM EST 10/18/2024 11:55 AM EST Maame Main [facility] MICROBIOLOGY - GENERAL ORDERABLES Performing Organization Address City/[facility]/ZIP Co de Phone Number [facility] [address] [place] [address], * Trichomonas vaginalis antigen (10/11/2024 2:10 PM EST) Trichomonas vaginalis Negative Negative 10/11/2024 6:43 PM EST [facility] Swab Vaginal structure / Unknown Non-blood Collection / Unknown 10/11/2024 2:10 PM EST 10/11/2024 2:10 PM EST Maame [facility] MICROBIOLOGY - GENERAL ORDERABLES [facility] [address] [place] [address], * Wet prep, genital (10/11/2024 2:10 PM EST) [facility] Clue Cells, Wet Prep Negative Negative 10/11/2024 6:43 PM EST [facility] Yeast, Wet Prep Negative Negative 10/11/2024 6:43 PM EST [facility] Trichomonas, Wet Prep Indeterminate Negative 10/11/2024 6:43 PM EST [facility] Comment:Refer to Trichomonas antigen. Swab Vaginal structure / Unknown Non-blood Collection / Unknown 10/11/2024 2:10 PM EST 10/11/2024 2:10 PM EST Maame Main CNM LAB MICROBIOLOGY - GENERAL ORDERABLES [facility] [address] [place] [address], * (ABNORMAL) POC Urine Auto W/O Micro (10/11/2024 2:05 PM EST) [facility] Leukocytes UA POC Positive(A) Negative Nitrite UA POC Negative Negative Urobilinogen UA POC Negative Negative Protein UA POC Positive(A) Negative PH UA POC 6.5 5.0 - 9.0 Blood UA POC Negative Negative, Trace Specific [place] UA POC 1.010 1.001 - 1.035 Ketones UA POC Negative Negative Bilirubin UA POC Negative(A) Negative Glucose UA POC Normal Normal, Trace Urine Urine specimen obtained by clean catch procedure / Unknown 10/11/2024 2:05 PM EST Maame Main CNM POINT OF CARE TEST ENTER/EDIT ORDERABLES * Urine Albumin Creatinine Ratio (10/30/2020) [facility] Urine Albumin Creatinine Ratio Abstracted Historical Provider MD ZENA Dee * Annual BMP Blood Test (10/30/2020) Pathologist [facility] Annual BMP Blood Test Abstracted Historical Provider MD ZENA MULTANI E * (ABNORMAL) Hemoglobin A1c (10/30/2020) Hemoglobin A1C 7.6(A) 6.5 % Blood Venous blood specimen / Unknown Historical Provider LAB BLOOD ORDERAB LES * Lipid panel (07/28/2020) LDL/HDL Ratio 3 0 - 4 Triglycerides 123 0 - 150 mg/dL Cholesterol 135 0 - 200 mg/dL HDL 50 40 mg/dL LDL Cholesterol 61 0 - 100 mg/dL Blood Venous blood specimen / Unknown Historical Provider LAB BLOOD ORDERAB LES from Last 3 Months or Most Recently Relevant to Health Maintenance Care Teams Metal Temperer Relationship Specialty Start Date End Date Celso Mathur PA [address] [place], [place] [id number] PCP - General Physician Funeral Location Manager 09/17/24
== END 2024-11-30 14:11 | disposition home or self-care (01) ==
PROVIDERS: Physician Assistant Medical; Emergency Provider Emergency Medicine; PCP Physician Assistant
DX: T78.40XA Allergy, unspecified, initial encounter (principal); J02.9 Acute pharyngitis, unspecified; X58.XXXA Exposure to other specified factors, initial encounter; E11.9 Type 2 diabetes mellitus without complications; I10 Essential (primary) hypertension; E78.5 Hyperlipidemia, unspecified; Z03.818 Encounter for observation for suspected exposure to other biological agents ruled out; Z79.84 Long term (current) use of oral hypoglycemic drugs; Z79.02 Long term (current) use of antithrombotics/antiplatelets; Z79.899 Other long term (current) drug therapy
CPT/HCPCS: 0241U; 87651; 99212; 99282; 99283

== ENCOUNTER 2024-11-30 15:22 | Outpatient (AMB) | payer OTHER, SELFPAY ==
--- NOTE | 2024-11-30 15:23 | MHC.OFFVIS ---
Vital Signs 11/30/24 15:24 Height 5 ft 4 in Weight 159 lb 13.362 oz BMI 27.4 BP 124/68 Blood Pressure Location Rt brachial Position Sitting Pulse 79 Pulse Source Pulse Oximeter Intake Visit Reasons: allergic reaction Intake Note: Patient present today for an allergic reaction. Lead Manufacturing Engineer Required: No Accompanied by: Self / Same As Patient Allergies dicyclomine [From BENTYL] Allergy (Unknown, Verified 11/30/24 15:28) HIVES hydrocodone [HYDROCODONE] Allergy (Unknown, Verified 11/30/24 15:28) UNKNOWN ibuprofen [From MOTRIN] Allergy (Unknown, Verified 11/30/24 15:28) HIVES Iodinated Contrast Media [IV CONTRAST] Allergy (Unknown, Verified 11/30/24 15:28) ITCHING minocycline [MINOCYCLINE] Allergy (Unknown, Verified 11/30/24 15:28) UNK morphine [MORPHINE] Allergy (Unknown, Verified 11/30/24 15:28) UNKNOWN naproxen [NAPROXEN] Allergy (Unknown, Verified 11/30/24 15:28) UNKOWN peanut [PEANUT] Allergy (Unknown, Verified 11/30/24 15:28) HIVES sulfamethoxazole [From BACTRIM] Allergy (Unknown, Verified 11/30/24 15:28) UNKNOWN tramadol [TRAMADOL] Allergy (Unknown, Verified 11/30/24 15:28) UNK trimethoprim [From BACTRIM] Allergy (Unknown, Verified 11/30/24 15:28) UNKNOWN lisinopril Allergy (Verified 11/30/24 15:28) Abdominal Pain methotrexate Allergy (Verified 11/30/24 15:28) Joint Pain metronidazole [From Flagyl] Allergy (Verified 11/30/24 15:28) Hives glipizide Adverse Reaction (Intermediate, Verified 11/30/24 15:28) neuropathy amitriptyline [AMITRIPTYLINE] Adverse Reaction (Mild, Verified 11/30/24 15:28) HYPER metoclopramide [From REGLAN] Adverse Reaction (Mild, Verified 11/30/24 15:28) HYPER latex [LATEX] Adverse Reaction (Unknown, Verified 11/30/24 15:28) RASH phenylephrine [PHENYLEPHRINE] Adverse Reaction (Unknown, Verified 11/30/24 15:28) UNKNOWN promethazine [From PHENERGAN] Adverse Reaction (Unknown, Verified 11/30/24 15:28) UNK glipizide Allergy (Mild, Uncoded 11/30/24 15:28) Rash SHELLFISH Allergy (Unknown, Uncoded 11/30/24 15:28) HIVES Medication List - Last Reconciled 12/01/24 by Sarah Aldrich MD acetaminophen-codeine 300-30 mg 1 tab PO BID PRN adalimumab (Humira(CF) Pen) 40 mg (0.4 mL) subcut Q2W atorvastatin 40 mg PO DAILY blood pressure monitor As directed blood sugar diagnostic (FreeStyle Test strips) As directed blood-glucose meter (FreeStyle [place] Lite kit) As directed cetirizine (Zyrtec) 10 mg PO DAILY PRN diphenhydramine HCl (Allergy (diphenhydramine)) 50 mg (2 x 25 mg) PO DIRECTED epinephrine (EpiPen 2-Rashard) 0.3 mg (0.3 mL) IM Q4H PRN 30 days gabapentin 100 mg PO BID 15 days lancets (FreeStyle Lancets) As directed losartan 50 mg PO DAILY 90 days magnesium 250 mg PO DAILY 30 days metformin ER 1,000 mg (2 x 500 mg) PO BID 90 days polyethylene glycol 3350 (HealthyLax) 17 grams PO DAILY PRN prednisone 50 mg PO DAILY prednisone Take 3 tabs daily for 1 week then 2 tabs daily for 1 week then 1 tab daily for 1 week then stop rabeprazole 20 mg PO BID sucralfate 1 g PO BID tirzepatide (Mounjaro) 2.5 mg (0.5 mL) subcut QWEEK 4 weeks triamcinolone acetonide 0.1% 1 appl topical DAILY 15 days walker (Ultra-Light Rollator misc) As directed HPI Comments Details: Patient is a 69-year-old female with diabetes, hypertension, hyperlipidemia and seronegative rheumatoid arthritis here today for an urgent visit. Interval History: Patient last seen 11/08/[address] Pompa. At that time she was not having benefit from her methotrexate and so she was started on Enbrel. Patient states that she started the medication and took 2 doses after the 2nd dose she noted a rash occurring on bilateral thighs as well as a throat tightness. She presented to the emergency department for further evaluation and was diagnosed with an urgent allergic reaction and started on prednisone Today she is following up 1 day after the emergency department. Notes that the rash is improving on her thighs and her throat symptoms are also improving however she complains of multiple joints aching Rheumatologic History: -ve RF -ve CCP dx 09/2024 MTX started 09/2024 DC 11/2024 ineffective Enbrel 11/2024. Allergic reaction (rash) Current Rheumatology Medication(s): Enbrel 50 mg every week (currently not taking due to allergic reaction) [facility] Medical History (Updated 12/01/24 @ 10:55 by Sarah Aldrich MD) Long-term use of adalimumab Encounter for monitoring of adalimumab therapy HTN (hypertension) Migraine GERD (gastroesophageal reflux disease) Diabetes Surgical History Hx of colonoscopy History of esophagogastroduodenoscopy (EGD) S/P carpal tunnel release Family History Maternal Grandmother Colon cancer Social History Housing: Apartment Alcohol intake: never Patient Tobacco Use Status: Never used Tobacco e-Cigarette/Vaping Use: Never Used Second Hand Smoke Exposure: No Advance Directives Date on File: 04/25/23 service: No Current occupational status: disabled Cognitive needs: No Hearing needs: No Vision needs: No Review of Systems Const Details: Review of Systems Constitutional: Denies fever, chills, weight loss ENT: Denies vision changes, eye pain or eye redness, dental caries, dry mouth GI: Denies nausea, vomiting, diarrhea, abdominal pain, change in BM Pulm: Denies SOB, LEVINE, hemoptysis, wheezing Cards: Denies chest pain, palpitations Skin: Denies Raynaud's, rash, nail changes, photosensitivity, TRANSIT WORKER: Denies headaches, weakness, paresthesias, recurrent falls MSK: as per HPI All other systems reviewed and are unremarkable except noted above Physical Exam Vital Signs: Last Vital Signs Pulse 79 11/30/24 15:24 BP 124/68 11/30/24 15:24 BMI result Body Mass Index 27.4 Vital signs reviewed Physical Examination CONSTITUITIONAL Patient alert and cooperative. Well appearing and in no apparent painful distress HEENT Conjunctiva and sclera clear. ?Pupils equal round and reactive to light. ?No lymphadenopathy. ? CHEST/RESPIRATORY SYSTEM Normal respiratory effort and able to speak in complete sentences. ?Clear to auscultation bilaterally. ?No crackles, rales, rhonchi, wheezes heard. CARDIAC SYSTEM Regular rate and rhythm. ?S1 and S2 heard no murmurs. ?Radial pulses intact bilaterally MSK Hands: ?Good law clerk strength bilaterally. No deformities noted. ?Tenderness to palpation of the MCPs and PIPs Wrists: ?Full range of motion at the wrists without pain. ?No tenderness to palpation or synovitis noted to the wrists. Elbows: Full range of motion without pain. No tenderness, weakness, swelling, increased warmth or erythema. Shoulders: Full range of motion without pain. No tenderness, weakness, swelling, increased warmth or erythema. Hips: Full range of motion without pain. Hip bursa: No tenderness to palpation Knees: ?Full range of motion. ?No tenderness, swelling, increased warmth or erythema.?No effusion or crepitations Ankles: Full range of motion. ?No tenderness, swelling, increased warmth or erythema.? Feet: ?Negative squeeze test. ?No tenderness to palpation or swelling of the MTPs. Tender points:?No tenderness to palpation of the bilateral trapezius, supraspinatus, greater trochanters, anterior costochondral junctions, bilateral gluteal areas, bilateral suboccipital muscle insertions SKIN Skin intact without rashes. Results Reviewed Results Reviewed: Laboratory Tests 09/01/24 11/08/24 16:29 14:32 WBC 8.4 RBC 4.08 L Hgb 11.0 L Hct 34.7 L Plt Count 303 ESR 21 H 76 H Sodium 140 Potassium 3.9 Chloride 107 Carbon Dioxide 21 L BUN 15 Creatinine 0.76 Total Bilirubin 0.5 AST 20 ALT 18 Alkaline Phosphatase 45 C-Reactive Protein 1.16 H 7.31 H Rheumatoid Factor < 13.0 Cycl Citrul Peptide IgG <16 SARATH Screen NEGATIVE Hepatitis A IgM Ab Nonreactive Hep Bs Antigen Negative Hep Bs Antibody NONREACTIVE Hep B Core Total Ab Nonreactive Hepatitis C Ab (EIA) Nonreactive TB Test (T-Spot) Com Negative Assessment & Plan Assessment & Plan (1) Seronegative rheumatoid arthritis: Comment: -ve RF -ve CCP dx 09/2024 MTX started 09/2024 DC 11/2024 ineffective Enbrel 11/2024 allergic reaction after 2 doses Code(s): M06.00 - Rheumatoid arthritis without rheumatoid factor, unspecified site Category: Medical Plan: #Seronegative RA Patient currently not in remission due to having an reaction to Enbrel and this was subsequently stopped. We will switch to Humira. Plan - Humira 40mg SC every other week - RTC 4 months - Labs before next visit: CBC, CMP, ESR, CRP (2) Allergic drug reaction: Code(s): T78.40XA - Allergy, unspecified, initial encounter Qualifiers: Encounter type: initial encounter Qualified Code(s): T78.40XA - Allergy, unspecified, initial encounter Plan: #Allergic reaction to Enbrel Went to the emergency department and received a steroids Patient can complete the course given to her by the emergency department. The rash has improved. Plan - Stop Enbrel - Complete prednisone course given by ED (3) Encounter for monitoring of adalimumab therapy: Code(s): Z51.81 - Encounter for therapeutic drug level monitoring; Z79.620 - [facility] (current) use of immunosuppressive biologic Category: Medical Plan: #Long-term Use of TNF Inhibitors: Tammy Discussed with the patient the benefits and risks of TNF inhibitors for the management of the rheumatic condition Benefits include reduce pain, maintenance of remission and reduction of flares as well as ?progression of the disease Risks include injection sites/infusion reactions, serious infections (such as bacterial infections, opportunistic infections), malignancy, delaminating syndromes, autoimmune phenomena, CHF exacerbations, palmar plantar psoriasis and cytopenias Recommended rotating injection sites, and holding medication during and for up to 1 week after resolution of a febrile illness or open skin wound Monitoring: CBC, CMP, ESR, CRP every 3-4 months. Hepatitis and T spot every 6 months to 1 year (4) Long-term use of adalimumab: Code(s): Z79.620 - [facility] (current) use of immunosuppressive biologic Category: Medical Plan: #Long-term Use of TNF Inhibitors: Humira Discussed with the patient the benefits and risks of TNF inhibitors for the management of the rheumatic condition Benefits include reduce pain, maintenance of remission and reduction of flares as well as ?progression of the disease Risks include injection sites/infusion reactions, serious infections (such as bacterial infections, opportunistic infections), malignancy, delaminating syndromes, autoimmune phenomena, CHF exacerbations, palmar plantar psoriasis and cytopenias Recommended rotating injection sites, and holding medication during and for up to 1 week after resolution of a febrile illness or open skin wound Plan I spent 40 minutes reviewing the record and labs, taking a history, examining the patient, discussing the treatment plan and documenting in the medical record Orders: Orders Comprehensive Met. Panel 4 Months M06.00 - Rheumatoid arthritis without rheumatoid factor, unspecified site Complete Blood Count Auto Diff 4 Months M06.00 - Rheumatoid arthritis without rheumatoid factor, unspecified site C Reactive Protein 4 Months M06.00 - Rheumatoid arthritis without rheumatoid factor, unspecified site Erythrocyte Sedimentation Rate 4 Months M06.00 - Rheumatoid arthritis without rheumatoid factor, unspecified site Medications: Discontinued prednisone Discontinued Reason: Patient Completed Course 50 mg PO DAILY 3 tabs 0RF prednisone Discontinued Reason: Patient Completed Course Take 3 tabs daily for 1 week then 2 tabs daily for 1 week then 1 tab daily for 1 week then stop 42 tabs 0RF Coding Level of Care Code Est Pt Level 4 (49934) Complex EM visit Add On G2211 Diagnoses Seronegative rheumatoid arthritis M06.00 Allergic reaction to drug, initial encounter T78.40XA Encounter type: initial encounter Encounter for monitoring of adalimumab therapy Z51.81; Z79.620 Long-term use of adalimumab Z79.620
[2024-11-30 15:24] VITALS: BP 124/68; PULSE 79; BMI 27.4
--- OUTSIDE RECORDS SUMMARY | 2024-11-30 16:20 | XMS_ITS | Clinical Summary ---
Author Organization [facility] [address] [facility] Address [address] [place] [address] Phone Care Team Providers Care Fence Erector Name Role Phone Celso Mathur Primary Care Provider [phone] Allergies Active Allergy Reactions Criticality Noted Date Comments Amitriptyline 08/09/2020 [place] hyper Dicyclomine Hives,Rash 07/14/2014 Dicyclomine Hydrocodone-Acetaminophen Hives [...] 1 (one) time each day. 09/24/2024 Active Dream KitchenTouch Ultra Test test strip USE TO TEST [...] EST Office Visit Obstetrics and Gynecology - [address] [phone] Kristina Earl MD Vaginal inclusion cyst [N89.8] (Primary Dx) 10/11/2024 1:30 PM EST Office Visit Obstetrics and Gynecology - [address] [phone] Maame Main CNM Vaginal odor (Primary Dx); Abnormal urine odor; Vaginal cyst 09/17/2024 Telephone Obstetrics and Gynecology - [address] [phone] Sandra Clayton CNM Vaginal/vulvar Complaint from Last 3 Months Immunizations Name Administration Dates Next Due Pneumococcal conjugate 13 va lent (Prevnar 13, PCV13) 2mo and older 09/17/2019 Pneumococcal polysaccharide 23 valent (Pneumovax 23) 2yo and older 01/01/2016 Surgical History Surgery Date Site/Laterality Comments KIDNEY STONE SURGERY 04/2014 PROCEDURE: DE NEPHROLITHOTOMY REMOVAL CALCULUS; COMMENT: x 3 TUBAL LIGATION PROCEDURE: HISTORICAL TUBAL LIGATION COLONOSCOPY 04/26/2011 PROCEDURE: HISTORICAL COLONOSCOPY; COMMENT: Diverticulosis, Repeat 10 yrs UPPER GASTROINTESTINAL ENDOSCOPY 09/24/2002 PROCEDURE: DE UPPER GI ENDOSCOPY PERFORMED; COMMENT: hiatal hernia, mod retained bile suggestive of decreased gastric emptying UPPER GASTROINTESTINAL ENDOSCOPY 05/20/2012 PROCEDURE: DE UPPER GI ENDOSCOPY PERFORMED; COMMENT: Reactive gastropathy OTHER SURGICAL HISTORY 07/23/2016 PROCEDURE: HISTORY OTHER; COMMENT: vocal cord polyps removed, Dr Altaf Nicole CARPAL TUNNEL RELEASE 05/2019 Left PROCEDURE: HISTORICAL CARPAL TUNNEL REL UPPER GASTROINTESTINAL ENDOSCOPY 11/05/2018 PROCEDURE: DE UPPER GI ENDOSCOPY PERFORMED; COMMENT: Functional dyspepsia [...] for your loved ones. For example, child support agent or elderly care for an older adult? [...] EST 10/18/2024 11:55 AM EST Maame Main [facility] MICROBIOLOGY - GENERAL ORDERABLES Performing Organization Address City/[facility]/ZIP Co de Phone Number [facility] [address] [place] [address], * Trichomonas vaginalis antigen (10/11/2024 2:10 PM EST) Trichomonas vaginalis Negative Negative 10/11/2024 6:43 PM EST [facility] Swab Vaginal structure / Unknown Non-blood Collection / Unknown 10/11/2024 2:10 PM EST 10/11/2024 2:10 PM EST [facility] MICROBIOLOGY - GENERAL ORDERABLES [facility] [address] [place] [address], * Wet prep, genital (10/11/2024 2:10 PM EST) [facility] Clue Cells, Wet Prep Negative Negative [...] GENERAL ORDERABLES [facility] [address] [place] [address], * (ABNORMAL) POC Urine Auto W/O Micro (10/11/2024 2:05 PM EST) [facility] Leukocytes UA POC Positive(A) Negative Nitrite UA POC Negative Negative Urobilinogen UA POC Negative Negative Protein UA POC Positive(A) Negative PH UA POC 6.5 5.0 - 9.0 Blood UA POC Negative Negative, Trace Specific [place] UA POC 1.010 1.001 - 1.035 Ketones UA POC Negative Negative Bilirubin UA POC Negative(A) Negative Glucose UA POC Normal Normal, Trace Urine Urine specimen obtained by clean catch procedure / Unknown 10/11/2024 2:05 PM EST Maame Main CNM POINT OF CARE TEST ENTER/EDIT ORDERABLES * Urine Albumin Creatinine Ratio (10/30/2020) [facility] Urine Albumin Creatinine Ratio Abstracted Historical Provider MD ZENA Dee * Annual BMP Blood Test (10/30/2020) Pathologist [facility] Annual BMP Blood Test Abstracted Historical Provider [...] Recently Relevant to Health Maintenance Care Teams Fence Erector Relationship Specialty Start Date End Date Celso Mathur PA [address] [place], [place] [id number] PCP - General Physician Die Welder 09/17/24
== END 2024-11-30 15:53 | disposition home or self-care (01) ==
PROVIDERS: PCP Physician Assistant; Visit Provider Student in an Organized Health Care Education/Training Program
DX: M06.00 Rheumatoid arthritis without rheumatoid factor, unspecified site (principal); T78.40XA Allergy, unspecified, initial encounter; Z51.81 Encounter for therapeutic drug level monitoring; Z79.620 Long term (current) use of immunosuppressive biologic
CPT/HCPCS: 99214; G2211

== ENCOUNTER 2024-12-07 09:12 | Outpatient (AMB) | payer OTHER, SELFPAY ==
--- NOTE | 2024-12-07 09:30 | MHC.OFFVIS ---
Vital Signs 12/07/24 09:46 Height 5 ft 4 in Weight 159 lb BMI 27.3 Intake Visit Reasons: Bilateral knee pain Intake Note: Roslyn is a 69 year old female who presents with complaints of progressively worsening bilateral knee pains. She describes her pains as sharp in nature. She has tried Tylenol which gives her only mild relief. She is due to begin Humira later this week for treatment of her rheumatoid arthritis. She has had cortisone injections in the past which gave her fairly good relief. She wishes to hold off on surgery if at all possible. Allergies dicyclomine [From BENTYL] Allergy (Unknown, Verified 12/07/24:47) HIVES hydrocodone [HYDROCODONE] Allergy (Unknown, Verified 12/07/24:47) UNKNOWN ibuprofen [From MOTRIN] Allergy (Unknown, Verified 12/07/24:47) HIVES Iodinated Contrast Media [IV CONTRAST] Allergy (Unknown, Verified 12/07/24:47) ITCHING minocycline [MINOCYCLINE] Allergy (Unknown, Verified 12/07/24:47) UNK morphine [MORPHINE] Allergy (Unknown, Verified 12/07/24:47) UNKNOWN naproxen [NAPROXEN] Allergy (Unknown, Verified 12/07/24:47) UNKOWN peanut [PEANUT] Allergy (Unknown, Verified 12/07/24:47) HIVES sulfamethoxazole [From BACTRIM] Allergy (Unknown, Verified 12/07/24:47) UNKNOWN tramadol [TRAMADOL] Allergy (Unknown, Verified 12/07/24:47) UNK trimethoprim [From BACTRIM] Allergy (Unknown, Verified 12/07/24:47) UNKNOWN lisinopril Allergy (Verified 12/07/24:47) Abdominal Pain methotrexate Allergy (Verified 12/07/24:47) Joint Pain metronidazole [From Flagyl] Allergy (Verified 12/07/24:47) Hives glipizide Adverse Reaction (Intermediate, Verified 12/07/24:47) neuropathy amitriptyline [AMITRIPTYLINE] Adverse Reaction (Mild, Verified 12/07/24:47) HYPER metoclopramide [From REGLAN] Adverse Reaction (Mild, Verified 12/07/24:47) HYPER latex [LATEX] Adverse Reaction (Unknown, Verified 02/04/25 09:47) RASH phenylephrine [PHENYLEPHRINE] Adverse Reaction (Unknown, Verified 12/07/24 09:47) UNKNOWN promethazine [From PHENERGAN] Adverse Reaction (Unknown, Verified 12/07/24 09:47) UNK glipizide Allergy (Mild, Uncoded 12/07/24 09:47) Rash SHELLFISH Allergy (Unknown, Uncoded 12/07/24 09:47) HIVES Medication List - Last Reconciled 12/07/24 by Kam Crowell MD acetaminophen-codeine 300-30 mg 1 tab PO BID PRN adalimumab (Humira(CF) Pen) 40 mg (0.4 mL) subcut Q2W atorvastatin 40 mg PO DAILY blood pressure monitor As directed blood sugar diagnostic ([employer] TechnologiesStyle Test strips) As directed blood-glucose meter (FreeStyle [place] Lite kit) As directed cetirizine (Zyrtec) 10 mg PO DAILY PRN diphenhydramine HCl (Allergy (diphenhydramine)) 50 mg (2 x 25 mg) PO DIRECTED epinephrine (EpiPen 2-Rashard) 0.3 mg (0.3 mL) IM Q4H PRN 30 days gabapentin 100 mg PO BID 15 days lancets (FreeStyle Lancets) As directed losartan 50 mg PO DAILY 90 days magnesium 250 mg PO DAILY 30 days metformin ER 1,000 mg (2 x 500 mg) PO BID 90 days polyethylene glycol 3350 (HealthyLax) 17 grams PO DAILY PRN rabeprazole 20 mg PO BID sucralfate 1 g PO BID tirzepatide (Mounjaro) 2.5 mg (0.5 mL) subcut QWEEK 4 weeks triamcinolone acetonide 0.1% 1 appl topical DAILY 15 days walker (Ultra-Light Rollator misc) As directed [facility] Medical History (Updated 12/01/24 @ 10:55 by Sarah Aldrich MD) Long-term use of adalimumab Encounter for monitoring of adalimumab therapy HTN (hypertension) Migraine GERD (gastroesophageal reflux disease) Diabetes Surgical History Hx of colonoscopy History of esophagogastroduodenoscopy (EGD) S/P carpal tunnel release Family History Maternal Grandmother Colon cancer Social History Housing: Apartment Alcohol intake: never Patient Tobacco Use Status: Never used Tobacco e-Cigarette/Vaping Use: Never Used Second Hand Smoke Exposure: No Advance Directives Date on File: 04/25/23 service: No Current occupational status: disabled Cognitive needs: No Hearing needs: No Vision needs: No Physical Exam Vital Signs: BMI result Body Mass Index 27.3 Const Other: Well-nourished well-developed very friendly female awake alert and oriented x3 in no acute distress Extrem Other: Bilateral lower extremity examination shows good capillary refill, no skin lesions noted, normal sensation light touch Bilateral knee examination shows minimal effusions, palpable crepitus with range of motion, pain with range of motion, no instability Office Procedures AMB Joint Injection/Aspiration Joint Injection/Aspiration Primary Site: left knee Prep: site was prepped using aseptic technique Injected: 40 mg of, DepoMedrol and 1% plain lidocaine Procedure: The patient tolerated the procedure well Coding 38399 - Large joint Procedure code (CPT) selection complete AMB Joint Injection/Aspiration Joint Injection/Aspiration Primary Site: right knee Prep: site was prepped using aseptic technique Injected: 40 mg of, DepoMedrol and 1% plain lidocaine Procedure: The patient tolerated the procedure well Coding 60316 - Large joint Procedure code (CPT) selection complete Results Reviewed Results Reviewed: X-rays of the patient's bilateral knees taken previously show joint space narrowing, subchondral sclerosis, no acute bony abnormalities Assessment & Plan Assessment & Plan (1) Arthritis of left knee: Code(s): M17.12 - Unilateral primary osteoarthritis, left knee Category: Medical (2) Arthritis of right knee: Code(s): M17.11 - Unilateral primary osteoarthritis, right knee Category: Medical (3) Pain in both knees: Code(s): M25.561 - Pain in right knee; M25.562 - Pain in left knee Plan Ms. Rosalba Willoughby presents with bilateral knee pains due to degenerative joint disease. The risks and benefits of bilateral knee cortisone injections were discussed at length with the patient. The patient wished to proceed. She tolerated the injections well. She will continue with her home exercise program. She will contact me prior to her follow-up appointment in 3 months should any questions or concerns arise. Feel free to call me at any time should questions regarding her orthopedic management arise. I spent 20 minutes in reviewing the patient's records and imaging studies, seeing the patient and documenting in the medical record. Orders: Orders AMB Joint Injection/Aspiration Today M17.12 - Unilateral primary osteoarthritis, left knee AMB Joint Injection/Aspiration Today M17.11 - Unilateral primary osteoarthritis, right knee Coding Level of Care Code Est Pt Level 3 (69067) Complex EM visit Add On G2211 Diagnoses Arthritis of left knee M17.12 Arthritis of right knee M17.11 Pain in both knees M25.561; M25.562 CPT Codes Coding - 53908 Large joint: 60741 - Large joint ([id number]) Coding - 10002 Large joint: 00423 - Large joint ([id number])
--- OUTSIDE RECORDS SUMMARY | 2024-12-07 09:38 | XMS_ITS | Clinical Summary ---
Author Organization [facility] [address] [facility] Address [address] [place] [address] Phone Care Team Providers Care Engineering Supplies Sales Name Role Phone Celso Mathur Primary Care Provider Allergies Active Allergy Reactions Criticality Noted Date Comments Amitriptyline 08/09/2020 Frederick hyper Dicyclomine Hives,Rash 07/14/2014 Dicyclomine Hydrocodone-Acetaminophen Hives [...] 1 (one) time each day. 09/24/2024 Active AigouTouch Ultra Test test strip USE TO TEST [...] EST Office Visit Obstetrics and Gynecology - [address] [phone] Kristina Earl MD Vaginal inclusion cyst [N89.8] (Primary Dx) 10/11/2024 1:30 PM EST Office Visit Obstetrics and Gynecology - [address] [phone] Maame Main CNM Vaginal odor (Primary Dx); Abnormal urine odor; Vaginal cyst 09/17/2024 Telephone Obstetrics and Gynecology - [address] [phone] Sandra Clayton CNM Vaginal/vulvar Complaint from Last 3 Months Immunizations Name Administration Dates Next Due Pneumococcal conjugate 13 va lent (Prevnar 13, PCV13) 2mo and older 09/17/2019 Pneumococcal polysaccharide 23 valent (Pneumovax 23) 2yo and older 01/01/2016 Surgical History Surgery Date Site/Laterality Comments KIDNEY STONE SURGERY 04/2014 PROCEDURE: HI NEPHROLITHOTOMY REMOVAL CALCULUS; COMMENT: x 3 TUBAL LIGATION PROCEDURE: HISTORICAL TUBAL LIGATION COLONOSCOPY 04/26/2011 PROCEDURE: HISTORICAL COLONOSCOPY; COMMENT: Diverticulosis, Repeat 10 yrs UPPER GASTROINTESTINAL ENDOSCOPY 09/24/2002 PROCEDURE: HI UPPER GI ENDOSCOPY PERFORMED; COMMENT: hiatal hernia, mod retained bile suggestive of decreased gastric emptying UPPER GASTROINTESTINAL ENDOSCOPY 05/20/2012 PROCEDURE: HI UPPER GI ENDOSCOPY PERFORMED; COMMENT: Reactive gastropathy OTHER SURGICAL HISTORY 07/23/2016 PROCEDURE: HISTORY OTHER; COMMENT: vocal cord polyps removed, Dr Altaf Nicole CARPAL TUNNEL RELEASE 05/2019 Left PROCEDURE: HISTORICAL CARPAL TUNNEL REL UPPER GASTROINTESTINAL ENDOSCOPY 11/05/2018 PROCEDURE: HI UPPER GI ENDOSCOPY PERFORMED; COMMENT: Functional dyspepsia [...] for your loved ones. For example, child caregiver or elderly care for an older adult? [...] Risk Assessment 10/06/2022 Hepatitis C Screening 10/06/2022 Medicare Annual Wellness Visit 10/06/2022 Osteoporosis Screening (Bone Density Screening) 10/06/2022 [...] Urine No growth 10/19/2024 8:[address] [facility] Urine Urine specimen obtained by clean catch procedure / Unknown Non-blood Collection / Unknown 10/18/2024 11:55 AM EST 10/18/2024 11:55 AM EST [facility] MICROBIOLOGY - GENERAL ORDERABLES Performing Organization Address City/[facility] Co de Phone Number [facility] [address] [place] [address], * Trichomonas vaginalis antigen (10/11/2024 2:10 PM EST) Trichomonas vaginalis Negative Negative 10/11/2024 6:[address] [facility] Swab Vaginal structure / Unknown Non-blood Collection / Unknown 10/11/2024 2:10 PM EST 10/11/2024 2:10 PM EST [facility] MICROBIOLOGY - GENERAL ORDERABLES Performing Organization Address City/State/[facility] Co de Phone Number [facility] [address] [place] [address], * Wet prep, genital (10/11/2024 2:10 PM EST) [facility] Clue Cells, Wet Prep Negative Negative 10/11/2024 6:[address] [facility] Yeast, Wet Prep Negative Negative 10/11/2024 6:[address] [facility] Trichomonas, Wet Prep Indeterminate Negative 10/11/2024 6:[address] [facility] Comment:Refer to Trichomonas antigen. Swab Vaginal structure / Unknown Non-blood Collection / Unknown 10/11/2024 2:10 PM EST 10/11/2024 2:10 PM EST [facility] MICROBIOLOGY - GENERAL ORDERABLES Performing Organization Address [facility] Co de Phone Number [facility] [address] [place] [address], * (ABNORMAL) POC Urine Auto W/O Micro (10/11/2024 2:05 PM EST) [facility] Leukocytes UA POC Positive(A) Negative Nitrite UA POC Negative Negative Urobilinogen UA POC Negative Negative Protein UA POC Positive(A) Negative PH UA POC 6.5 5.0 - 9.0 Blood UA POC Negative Negative, Trace Specific [place] UA POC 1.010 1.001 - 1.035 Ketones UA POC Negative Negative Bilirubin UA POC Negative(A) Negative Glucose UA POC Normal Normal, Trace Urine Urine specimen obtained by clean catch procedure / Unknown 10/11/2024 2:05 PM EST Maame Main CNM POINT OF CARE TEST ENTER/EDIT ORDERABLES * Urine Albumin Creatinine Ratio (10/30/2020) [facility] Urine Albumin Creatinine Ratio Abstracted Historical Provider MD ZENA MULTANI E * Annual BMP Blood Test (10/30/2020) Annual BMP Blood Test Abstracted Historical Provider MD ZENA MULTANI E * (ABNORMAL) Hemoglobin A1c (10/30/2020) Pathologist [facility] Hemoglobin A1C 7.6(A) 6.5 % Blood Venous [...] Recently Relevant to Health Maintenance Care Teams Engineering Supplies Sales Relationship Specialty Start Date End Date Celso Mathur PA [address] [place], [place] [id number] PCP - General Physician Shift Supervisor Melting 09/17/24
[2024-12-07 09:46] VITALS: BMI 27.3
== END 2024-12-07 10:00 | disposition home or self-care (01) ==
PROVIDERS: PCP Physician Assistant; Visit Provider Orthopaedic Surgery
DX: M17.0 Bilateral primary osteoarthritis of knee (principal)
CPT/HCPCS: 20610; 99213

== ENCOUNTER → 2024-12-07 09:12 | Outpatient (BNVA) | payer OTHER, SELFPAY | PROVIDERS: PCP Physician Assistant; Visit Provider Orthopaedic Surgery | DX: M17.0 Bilateral primary osteoarthritis of knee (principal); M25.561 Pain in right knee; M25.562 Pain in left knee | CPT/HCPCS: 20610; 99212; J1010; J2003 ==

== ENCOUNTER 2025-01-12 09:25 | Outpatient (AMB) | payer OTHER, SELFPAY ==
--- NOTE | 2025-01-12 09:30 | MHC.PC.OV ---
Vital Signs 01/12/25 09:31 Height 5 ft 4 in Weight 157 lb BMI 26.9 BP 122/70 Blood Pressure Location Lt brachial Position Sitting Pulse 86 Pulse Source Pulse Oximeter Pulse Oximetry (%) 98 Oxygen Delivery Method Room Air Intake Visit Reasons: follow up Case Operator Required: No Accompanied by: Self / Same As Patient Allergies etanercept [From Enbrel] Allergy (Intermediate, Verified 01/12/25 09:37) Rash dicyclomine [From BENTYL] Allergy (Unknown, Verified 01/12/25:32) HIVES hydrocodone [HYDROCODONE] Allergy (Unknown, Verified 01/12/25:32) UNKNOWN ibuprofen [From MOTRIN] Allergy (Unknown, Verified 01/12/25:32) HIVES Iodinated Contrast Media [IV CONTRAST] Allergy (Unknown, Verified 01/12/25:32) ITCHING minocycline [MINOCYCLINE] Allergy (Unknown, Verified 01/12/25:32) UNK morphine [MORPHINE] Allergy (Unknown, Verified 01/12/25:32) UNKNOWN naproxen [NAPROXEN] Allergy (Unknown, Verified 01/12/25:32) UNKOWN peanut [PEANUT] Allergy (Unknown, Verified 01/12/25:32) HIVES sulfamethoxazole [From BACTRIM] Allergy (Unknown, Verified 01/12/25:32) UNKNOWN tramadol [TRAMADOL] Allergy (Unknown, Verified 01/12/25:32) UNK trimethoprim [From BACTRIM] Allergy (Unknown, Verified 01/12/25:32) UNKNOWN lisinopril Allergy (Verified 01/12/25:32) Abdominal Pain methotrexate Allergy (Verified 01/12/25:32) Joint Pain metronidazole [From Flagyl] Allergy (Verified 01/12/25:32) Hives glipizide Adverse Reaction (Intermediate, Verified 01/12/25:32) neuropathy amitriptyline [AMITRIPTYLINE] Adverse Reaction (Mild, Verified 01/12/25:32) HYPER metoclopramide [From REGLAN] Adverse Reaction (Mild, Verified 01/12/25:32) HYPER latex [LATEX] Adverse Reaction (Unknown, Verified 01/12/25:32) RASH phenylephrine [PHENYLEPHRINE] Adverse Reaction (Unknown, Verified 01/12/25:32) UNKNOWN promethazine [From PHENERGAN] Adverse Reaction (Unknown, Verified 01/12/25 09:32) UNK glipizide Allergy (Mild, Uncoded 12/07/24 09:47) Rash SHELLFISH Allergy (Unknown, Uncoded 12/07/24 09:47) HIVES Medication List - Last Reconciled 01/12/25 by Celso Mathur PA-C acetaminophen-codeine 300-30 mg 1 tab PO BID PRN adalimumab (Humira(CF) Pen) 40 mg (0.4 mL) subcut Q2W atorvastatin 40 mg PO DAILY blood pressure monitor As directed blood sugar diagnostic (FreeStyle Test strips) As directed blood-glucose meter (FreeStyle [place] Lite kit) As directed diphenhydramine HCl (Allergy (diphenhydramine)) 50 mg (2 x 25 mg) PO DIRECTED lancets (FreeStyle Lancets) As directed losartan 50 mg PO DAILY 90 days metformin ER 1,000 mg (2 x 500 mg) PO BID 90 days polyethylene glycol 3350 (HealthyLax) 17 grams PO DAILY PRN rabeprazole 20 mg PO BID sucralfate 1 g PO BID tirzepatide (Mounjaro) 2.5 mg (0.5 mL) subcut QWEEK 4 weeks triamcinolone acetonide 0.1% 1 appl topical DAILY 15 days walker (Ultra-Light Rollator misc) As directed Tobacco use date assessed: 01/12/25 Fall risk assessment: No Falls in past year Last assessed Fall Risk: 01/12/25 Dental Screening Dental Screen Date: 01/12/25 Did you have a dental visit in the last 12 months?: Yes Did you have a dental problem in the last 6 months where you did not have access to dental care?: No Was dental information given to patient?: Patient has dentist HPI follow up HPI Details Patient is a 69-year-old female here today for an urgent visit? Patient has a past medical history significant for DMII/ HTN, HLD. Concern--> abdominal pain that began two weeks ago and worsens after eating. She notes no accompanying vomiting or diarrhea, and no fever has been present. The pain is located mid-abdomen, and she initially suspected gluten intolerance due to its symptom overlap, despite normal past tests for gluten intolerance in 2021. The patient recently started Humira for her rheumatoid arthritis, now up to her third injection, noting Humira's known potential side effect of abdominal pain. She is currently on Raveprazole for gastritis, which was prescribed after recent findings of gastric irritation during a 2022 endoscopy CHRONIC MEDICAL CONDITIONS--> .. DMII:? Patient continues on metformin 1000 b.i.d.. She has transitioned to Monjauro and glycemic control seems to be much better with A1c reduction. ? . Bilateral knee inflammatory arthritis: Has had a few flare-ups her knee pain to which she required p.o. steroids. She followed up with Orthopedic and did get steroid injections. She had allergic reaction to Enbrel. She also had allergic reaction to methotrexate.. She is now on Humira injections over the last 4-6 weeks .. HTN :? DOes check her BP at home and report 120s systiolic. Blood pressure today in office acceptable. ,, Hyperlipidemia:? Patient's most recent lipid panel acceptable with LDL below 100 PFS Medical History (Updated 01/12/25 @ 09:45 by Celso Mathur PA-C) Long-term use of adalimumab Encounter for monitoring of adalimumab therapy HTN (hypertension) Migraine GERD (gastroesophageal reflux disease) Diabetes Surgical History Hx of colonoscopy History of esophagogastroduodenoscopy (EGD) S/P carpal tunnel release Family History Maternal Grandmother Colon cancer Social History Housing: Apartment Alcohol intake: never Patient Tobacco Use Status: Never used Tobacco e-Cigarette/Vaping Use: Never Used Second Hand Smoke Exposure: No Advance Directives Date on File: 04/25/23 service: No Current occupational status: disabled Cognitive needs: No Hearing needs: No Vision needs: No Questionnaire PHQ-9 Over the last 2 weeks, how often have you been bothered by any of the following problems? 1. Little interest or pleasure in doing things: not at all 2. Feeling down, depressed, or hopeless: not at all 3. Trouble falling or staying asleep, or sleeping too much: not at all 4. Feeling tired or having little energy: not at all 5. Poor appetite or overeating: not at all 6. Feeling bad about yourself - or that you are a failure or have let yourself or your family down: not at all 7. Trouble concentrating on things, such as reading the newspaper or watching television: not at all 8. Moving or speaking so slowly that other people could have noticed. Or the opposite - being so fidgety or restless that you have been moving around a lot more than usual: not at all 9. Thoughts that you would be better off or of hurting yourself in some way: not at all Total score: 0 Depression Screening Interpretation: Negative Depression Screening Done: Yes 73719 - PHQ-9 Billing: Yes Source: Developed by Drs. Tawanda Flores, Aparna Potter, Joon Adair and colleagues, with an educational sacha from [employer]. Thrive Questionnaire Date Thrive assessed: 01/12/25 I am a: Patient What is your living situation today?: I have a steady place to live Within the past 12 months, did the food you bought not last and you didn't have the money to get more?: Never true Within the past 12 months, did you worry whether your food would run out before you got money to buy more?: Never true Do you have trouble paying for medicines?: No Do you have trouble getting transportation to medical appointments?: No Do you have trouble paying your heating and electricity bill?: No Do you have trouble taking care of your child, family member or friend?: No Do you have trouble with day-to-day activities such as bathing, preparing meals, shopping, managing finances, etc.?: No Are you currently unemployed and looking for a job?: No Are you interested in more education?: No Please select the resources that you would like help with: None Currently or been in a relationship where the following occur: No concerns reported THRIVE Score: 0 AUDIT C Alcohol Use Questionnaire (AUDIT-C) 1. How often do you have a drink containing alcohol?: Never Total Score: 0 CAMILLE-7 AMB Questionnaire CAMILLE-7 Date CAMILLE - 7 assessed: 01/12/25 Feeling nervous, anxious, or on edge: 0 = Not at all Not being able to stop or control worryin = Not at all Worrying too much about different things: 0 = Not at all Trouble relaxin = Not at all Being so restless that it is hard to sit still: 0 = Not at all Becoming easily annoyed or irritable: 0 = Not at all Feeling afraid as if something awful might happen: 0 = Not at all Total CAMILLE-7 score (0-4 normal; 5-9 mild; 10-14 moderate; 15-21 severe): 0 Source: Developed by Drs. Tawanda Flores, Aparna Potter, Joon Adair and colleagues, with an educational sacha from [employer]. CAMILLE-7 Assessment Billing CAMILLE-7 Assessment Tool: CAMILLE-7 Assessment 85044 Review of Systems Const Denies headache(s) Eyes Denies loss of vision ENT Denies vertigo, Denies dizziness, Denies headache(s) and Denies sore throat Card Denies chest pain, Denies leg edema and Denies lightheadedness Resp Denies cough, Denies hemoptysis and Denies wheezing GI Denies abdominal pain, Denies melena, Denies constipation, Denies diarrhea and Denies vomiting Denies urinary frequency, Denies dysuria and Denies urinary urgency Musc Denies arthralgias, Denies joint swelling, Denies numbness and Denies tingling Neuro Denies Abnormal speech present, Denies behavioral changes, Denies vertigo, Denies dizziness, Denies headache(s), Denies loss of vision, Denies memory loss, Denies numbness and Denies tingling Psych Denies anxiety, Denies behavioral changes, Denies depression, Denies memory loss and Denies panic attacks Pawan/Lymph Denies easy bleeding and Denies easy bruising Aller/Immun Denies wheezing Physical exam (Primary Care) Vital Signs: Last Vital Signs Pulse 86 01/12/25 09:31 BP 122/70 01/12/25 09:31 Pulse Ox 98 01/12/25 09:31 Oxygen Delivery Method Room Air 01/12/25 09:31 BMI result Body Mass Index 26.9 Tobacco/Smoking Status: Tobacco use Status Tobacco use date assessed 01/12/25 01/12/25 09:35 Patient Tobacco Use Status Never used Tobacco 01/12/25 09:35 e-Cigarette/Vaping Use Never Used 01/12/25 09:35 PHQ-9: PHQ-9 Score PHQ-9: Total score 0 01/12/25 09:36 Depression Screening Interpretation: Negative Thrive Assessment: Date of Thrive Assessment Date Thrive assessed 01/12/25 01/12/25 09:36 Currently or been in a relationship where the following occur: No concerns reported Const General: healthy appearing, no acute distress, alert and awake Nutritional Appearance: well nourished Orientation/consciousness: oriented to person, oriented to place and oriented to time HENMT Ears: TM's normal bilaterally General nose exam: Normal nasal mucous membranes and turbinates present Eyes Conjunctivae: conjunctivae normal Sclerae: sclerae normal Pupils: Equal, round and reactive pupils present Neck Neck: Yes no lymphadenopathy and Yes no JVD Thyroid: Thyroid normal Carotids: no bruits Resp Effort & Inspection: normal respiratory effort and not tachypneic Auscultation: no crackles, no rales, no rhonchi and no wheezes Cardio Rate: regular rate Rhythm: regular rhythm Heart sounds: no murmurs and normal S1 and S2 GI Other: TENDERNESS TO PALPATION OVER MID ABDOMEN Palpation (GI): Soft to palpation, Tenderness to palpation present (GI), no hepatomegaly and no splenomegaly Auscultation: normal bowel sounds Skin General skin exam: no rashes or lesions noted and dry skin Neuro General: oriented to person, oriented to place and oriented to time Cranial nerves: Yes Equal, round and reactive pupils present Speech: No Abnormal speech present Gait exam (Neuro): Normal gait present Motor exam (neuro): no tremor noted Extrem Right upper extremity: full ROM Left upper extremity: full ROM Right lower extremity: full ROM; no edema Left lower extremity: full ROM; no edema Psych Mental Status: mental status grossly normal Speech and movement: Normal speech and movement present Affect: normal affect Attitude: cooperative Thought process: Normal thought process present Results AMB Hemoglobin A1c AMB Hemoglobin A1c 7.2 % Last Edit by BRANDY Bergeron on 01/12/25 09:38 Coding Level of Care Code Est Pt Level 4 (34244) Diagnoses Generalized abdominal pain R10.84 Abdominal location: generalized Urinary frequency R35.0 Multiple drug allergies Z88.9 Additional Codes CAMILLE-7 Assessment Billing - CAMILLE-7 Assessment Tool: CAMILLE-7 Assessment 24764 ([id number]) PHQ-9 - 26423 - PHQ-9 Billing: Yes ([id number]) Assessment & Plan Assessment & Plan (1) Abdominal pain: Code(s): R10.9 - Unspecified abdominal pain Category: Medical Qualifiers: Abdominal location: generalized Qualified Code(s): R10.84 - Generalized abdominal pain Plan: Discussion of possible Humira linkage given recent dosage, planned abdominal ultrasound, and stool tests to rule out bacterial or pancreatic etiology. (2) Urinary frequency: Code(s): R35.0 - Frequency of micturition Category: Medical Plan: Will send for urinalysis to evaluate for UTI as she is reporting urinary frequency (3) Multiple drug allergies: Code(s): Z88.9 - Allergy status to unspecified drugs, medicaments and biological substances Category: Medical Plan: Referral to allergy/software configuration specialist for further evaluation of medication allergies, immune health. Orders: Orders UA CC w/rflx Micro + Cult Today R30.0 - Dysuria, R35.0 - Frequency of micturition Lipase Today R10.84 - Generalized abdominal pain AMB Hemoglobin A1c Today E11.65 - Type 2 diabetes mellitus with hyperglycemia Complete Blood Count no Diff Today R10.84 - Generalized abdominal pain Comprehensive Met. Panel Today R10.84 - Generalized abdominal pain US abdomen complete Today R10.84 - Generalized abdominal pain H pylori Ag Stool Today R10.84 - Generalized abdominal pain Referrals Allergy & Immunology Referral Z88.9 - Allergy status to unspecified drugs, medicaments and biological substances
[2025-01-12 09:31] VITALS: BP 122/70; PULSE 86; O2SAT 98; BMI 26.9
--- OUTSIDE RECORDS SUMMARY | 2025-01-12 10:15 | XMS_ITS | Clinical Summary ---
Author Organization [facility] [address] [facility] Address [address] [place] [address] Phone Care Team Providers Care Ground Services Instructor Name Role Phone Celso Mathur Primary Care Provider Allergies Active Allergy Reactions Criticality Noted Date Comments Amitriptyline 08/09/2020 [place] hyper Dicyclomine Hives,Rash 07/14/2014 Dicyclomine Hydrocodone-Acetaminophen Hives 07/14/2014 Ibuprofen Anaphylaxis High 05/19/2006 Naproxen Iodinated Contrast Media 08/09/2020 Itching, agitated Lactose 08/09/2020 Latex 08/09/2020 Itchy with contact, no hives Lisinopril Cough 01/31/2021 Metoclopramide Rash 05/19/2006 Reglan Minocycline 08/09/2020 hyperactive Phenylephrine 08/09/2020 hyper Promethazine 08/09/2020 hives Shellfish Containing Products 08/09/2020 anaphlaxis Sulfa (Sulfonamide Antibiotics) 08/21/2020 Rash/dermatitis Sulfamethoxazole-Trimethopri m Rash 05/19/2006 Tramadol Hives 08/09/2020 Medications acetaminophen (TYLENOL ARTHRITIS PAIN ORAL) Take by mouth. Activ e atorvastatin (LIPITOR) 40 mg tablet Take 1 Tab by mouth every evening. 1 Active losartan (COZAAR) 25 mg tablet Take 1 Tab by mouth daily. 1 Active metFORMIN XR (GLUCOPHAGE-XR ) 500 mg 24 hr tablet TAKE 4 TABLETS BY MOUTH EVERY DAY IN THE MORNING WITH BREAKFAST 1 Active polyethylene glycol (MIRALAX) 17 gram packet DISSOLVE 1 PACKET WITH 8 OUNCES OF LIQUID AND DRINK DAILY 1 Active predniSONE (DELTASONE) 5 mg tablet TAKE 2 TABS DAILY FOR 2 WEEKS THEN 1 TAB DAILY FOR 2 WEEKS THEN STOP 4 Active magnesium oxide 250 mg magnesium tablet Take 1 tablet (250 mg total) by mouth 1 (one) time each day. 4 Active Mounjaro 2.5 mg/0.5 mL injection INJECT 2.5 MG (0.5 ML) SUBCUTANEOUSLY EVERY WEEK FOR 4 WEEKS 4 Active RABEprazole (ACIPHEX) 20 mg EC tablet Take 1 tablet (20 mg total) by mouth 1 (one) time each day. 4 Active folic acid (FOLVITE) 1 mg tablet Take 1 tablet (1,000 mcg total) by mouth 1 (one) time each day. 4 Active Chasing SavingsTouch Ultra Test test strip USE TO TEST ONCE DAILY DIRECTED 4 Active acetaminophen- codeine (TYLENOL #3) 300-30 mg per tablet TAKE 1 TABLET BY MOUTH 2 TIMES A DAY NEEDED FOR SEVERE PAIN (SCALE SCORE 7-10) 4 Active methotrexate 2.5 mg tablet TAKE 6 TABLETS BY MOUTH WEEKLY 4 Active Active Problems Problem Noted Date Diagnosed [...] PM EST Office Visit Obstetrics and Gynecology [address] [phone] Kristina Earl MD Vaginal inclusion cyst [N89.8] (Primary Dx) from Last 3 Months Immunizations Name Administration Dates Next Due Pneumococcal conjugate 13 va lent (Prevnar 13, PCV13) 2mo and older 09/17/2019 Pneumococcal polysaccharide 23 valent (Pneumovax 23) 2yo and older 01/01/2016 Surgical History Surgery Date Site/Laterality Comments KIDNEY STONE SURGERY 04/2014 PROCEDURE: [place] NEPHROLITHOTOMY REMOVAL CALCULUS; COMMENT: x 3 TUBAL LIGATION PROCEDURE: HISTORICAL TUBAL LIGATION COLONOSCOPY 04/26/2011 PROCEDURE: HISTORICAL COLONOSCOPY; COMMENT: Diverticulosis, Repeat 10 yrs UPPER GASTROINTESTINAL ENDOSCOPY 09/24/2002 PROCEDURE: ND UPPER GI ENDOSCOPY PERFORMED; COMMENT: hiatal hernia, mod retained bile suggestive of decreased gastric emptying UPPER GASTROINTESTINAL ENDOSCOPY 05/20/2012 PROCEDURE: ND UPPER GI ENDOSCOPY PERFORMED; COMMENT: Reactive gastropathy OTHER SURGICAL HISTORY 07/23/2016 PROCEDURE: HISTORY OTHER; COMMENT: vocal cord polyps removed, Dr Altaf Nicole CARPAL TUNNEL RELEASE 05/2019 Left PROCEDURE: HISTORICAL CARPAL TUNNEL REL UPPER GASTROINTESTINAL ENDOSCOPY 11/05/2018 PROCEDURE: ND UPPER GI ENDOSCOPY PERFORMED; COMMENT: Functional dyspepsia [...] Diabetic neuropathy (CMS/HCC) 08/09/2020 DX :Diabetic neuropathy ([facility]); COMMENT: Feet 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 Unable to respond Within the past 12 months th e food we bought just didn't last and we didn't have money to get more. Unable to respond 12/2023 Dependent Care Answer Date Recorded Do you need help finding or paying for care for your loved ones. For example, child care specialist or elderly care for an older adult? [...] What is your living situation? 1 12/05/2023 Comments No Sex and Gender Information Value Date Recorded Sex Assigned at Not on file Legal Sex Female 7:02 AM EST Gender Identity Not on file Sexual Orientation Not on file Obstetrics History Para Term [...] - Risk 60-74 years 1-dose series) 2014 Diabetes: Annual GFR (Glomerular Filtration Rate) 10/30/2021 10/30/2020 Colorectal Cancer Screening: Colonoscopy 10/06/2022 Falls Risk Assessment 10/06/2022 Hepatitis C Screening 10/06/2022 Medicare Annual Wellness Visit 10/06/2022 Osteoporosis Screening (Bone Density Screening) 10/06/2022 Diabetes: Annual Urine Albumin-Creatinine Ratio (uACR) 10/16/2022 10/30/2020 Diabetes: Blood Sugar Control Test (HGBA1C) 10/16/2022 10/30/2020 Hypertension/CHF/CAD Annual BMP Blood Test 10/16/2022 10/30/2020 Pneumococcal Vaccine: 50+ Years (3 of 3 - PCV20 or PCV21) 09/17/2024 09/17/2019, 09/17/2019, 01/01/2016 Cholesterol Screening (Lipid Panel) 07/28/2025 07/28/2020 Depression [...] patient's age to complete this topic Meningococcal B Vacine Aged Out No lo nger eligible based on patient's age to complete this topic RSV Immunization Patients Under 20 months Aged Out No longer eligible based on patient's age to complete this topic Varicella Vaccines Aged Out No longer eligible based on patient's age to complete this topic Procedures Procedure Name Priority Date/Time Associated Diagnosis Comments CULTURE URINE Routine 10/18/2024 11:55 AM EST Abnormal urine odor URINE ALBUMIN CREATININE RATIO Routine 10/30/2020 ANNUAL BMP BLOOD TEST Routine 10/30/2020 HEMOGLOBIN A1C Routine 10/30/2020 LIPID PANEL Routine 07/28/2020 from Last 3 Months or Most Recently Relevant to Health Maintenance Results * Culture urine (10/18/2024 11:55 AM EST) Culture, Urine No growth 10/19/2024 8:02 AM EST [facility] Urine Urine specimen obtained by clean catch procedure / Unknown Non-blood Collection / Unknown 10/18/2024 11:55 AM EST 10/18/2024 11:55 AM EST Maame [facility]OM[facility] LAB MICROBIOLOGY - GENERAL ORDERABLES Final Result [facility] [address] [place] [address], * Urine Albumin Creatinine Ratio (10/30/2020) [facility] Urine Albumin Creatinine Ratio Abstracted Result [facility] Historical Provider HEALTH MAINTENANCE Final Result * Annual BMP Blood Test (10/30/2020) [facility] Annual BMP Blood Test Abstracted Result [facility] Provider HEALTH MAINTENANCE Final Result * (ABNORMAL) Hemoglobin A1c (10/30/2020) [facility] Hemoglobin A1C 7.6(A) <=6.5 % Blood Venous blood specimen / Unknown Result [facility] Provider MD LAB BLOOD ORDERABLES Grace l Result * Lipid panel (07/28/2020) [facility] LDL/HDL Ratio 3 0 - 4 Triglycerides 123 0 - 150 mg/dL Cholesterol 135 0 - 200 mg/dL HDL 50 >=40 mg/dL LDL Cholesterol 61 0 - 100 mg/dL Blood Venous blood specimen / Unknown Result [facility] Historical Provider MD LAB BLOOD ORDERABLES Grace l Result from Last 3 Months or Most Recently Relevant to Health Maintenance Insurance [facility] Member Subscriber Plan / Payer ( fective 2019-Present) Name:Roslyn Navarrete Relation to Subscriber:Self Name:Roslyn Navarrete Payer ID:[id number] Group ID:[id number] Type:Not on file Address: [address] [place] [address] [employer] MEDICARE Member Subscriber Plan / Payer ( fective 2019-Present) Name:Roslyn Navarrete Relation to Subscriber:Self Name:Roslyn Navarrete Payer ID:[id number] Group ID:[id number] Type:Not on file Address: [address] [place] [address] Care Teams Ground Services Instructor Relationship Specialty Start Date End Date Celso Mathur PA PCP - General Physician Duct Layer 09/17/24
== END 2025-01-12 09:57 | disposition home or self-care (01) ==
LOC: HO.HMCH 09:25
PROVIDERS: PCP Physician Assistant; Visit Provider Physician Assistant
DX: R10.84 Generalized abdominal pain (principal); R35.0 Frequency of micturition; Z88.9 Allergy status to unspecified drugs, medicaments and biological substances; E11.65 Type 2 diabetes mellitus with hyperglycemia

== ENCOUNTER 2025-01-12 09:25 | Outpatient (REF) | payer OTHER, SELFPAY ==
--- OUTSIDE RECORDS SUMMARY | 2025-01-12 11:36 | XMS_ITS | Clinical Summary ---
Author Organization [facility] [address] [facility] Address [address] [place] [address] Phone Care Team Providers Care Assembler Name Role Phone Celso Mathur Primary Care Provider Allergies Active Allergy Reactions Criticality Noted Date Comments Amitriptyline 08/09/2020 [place] hyper Dicyclomine Hives,Rash 07/14/2014 Dicyclomine Hydrocodone-Acetaminophen Hives [...] 1 (one) time each day. 4 Active ThinkEcoTouch Ultra Test test strip USE TO TEST [...] PM EST Office Visit Obstetrics and Gynecology [address] [phone] Kristina Earl MD Vaginal inclusion cyst [N89.8] (Primary Dx) from Last 3 Months Immunizations Name Administration Dates Next Due Pneumococcal conjugate 13 va lent (Prevnar 13, PCV13) 2mo and older 09/17/2019 Pneumococcal polysaccharide 23 valent (Pneumovax 23) 2yo and older 01/01/2016 Surgical History Surgery Date Site/Laterality Comments KIDNEY STONE SURGERY 04/2014 PROCEDURE: [place] NEPHROLITHOTOMY REMOVAL CALCULUS; COMMENT: x 3 TUBAL LIGATION PROCEDURE: HISTORICAL TUBAL LIGATION COLONOSCOPY 04/26/2011 PROCEDURE: HISTORICAL COLONOSCOPY; COMMENT: Diverticulosis, Repeat 10 yrs UPPER GASTROINTESTINAL ENDOSCOPY 09/24/2002 PROCEDURE: [place] UPPER GI ENDOSCOPY PERFORMED; COMMENT: hiatal hernia, mod retained bile suggestive of decreased gastric emptying UPPER GASTROINTESTINAL ENDOSCOPY 05/20/2012 PROCEDURE: [place] UPPER GI ENDOSCOPY PERFORMED; COMMENT: Reactive gastropathy OTHER SURGICAL HISTORY 07/23/2016 PROCEDURE: HISTORY OTHER; COMMENT: vocal cord polyps removed, Dr Altaf Nicole CARPAL TUNNEL RELEASE 05/2019 Left PROCEDURE: HISTORICAL CARPAL TUNNEL REL UPPER GASTROINTESTINAL ENDOSCOPY 11/05/2018 PROCEDURE: [place] UPPER GI ENDOSCOPY PERFORMED; COMMENT: Functional dyspepsia [...] Diabetic neuropathy (CMS/HCC) 08/09/2020 DX :Diabetic neuropathy ([facility]); COMMENT: Feet 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 For example, child psychology teacher or elderly care for an older adult? [...] Urine No growth 10/19/2024 8:[address] [facility] Urine Urine specimen obtained by clean catch procedure / Unknown Non-blood Collection / Unknown 10/18/2024 11:55 AM EST 10/18/2024 11:55 AM EST Maame SALOM[facility] LAB MICROBIOLOGY - GENERAL ORDERABLES Final Result [facility] [address] [place] [address], * Urine Albumin Creatinine Ratio (10/30/2020) [facility] Urine Albumin Creatinine Ratio Abstracted Result [facility] Historical Provider HEALTH MAINTENANCE Final Result * Annual BMP Blood Test (10/30/2020) [facility] Annual BMP Blood Test Abstracted Result [facility] Provider HEALTH MAINTENANCE Final Result * (ABNORMAL) Hemoglobin A1c (10/30/2020) [facility] Hemoglobin A1C 7.6(A) <=6.5 % Blood Venous blood specimen / Unknown Result [facility] Provider MD LAB BLOOD ORDERABLES Grace l Result * Lipid panel (07/28/2020) [facility] LDL/HDL Ratio 3 0 - 4 Triglycerides 123 0 - 150 mg/dL Cholesterol 135 0 - 200 mg/dL HDL 50 >=40 mg/dL LDL Cholesterol 61 0 - 100 mg/dL Blood Venous blood specimen / Unknown Result [facility] Historical Provider MD LAB BLOOD ORDERABLES Grace l Result from Last 3 Months or Most Recently Relevant to Health Maintenance Insurance [facility] Member Subscriber Plan / Payer ( fective 2019-Present) Name:Roslyn Navarrete Relation to Subscriber:Self Name:Roslyn Navarrete Payer ID:[id number] Group ID:[id number] Type:Not on file Address: [address] [place] [address] [employer] MED[employer] Member Subscriber Plan / Payer ( fective 2019-Present) Name:Roslyn Navarrete Relation to Subscriber:Self Name:Roslyn Navarrete Payer ID:[id number] Group ID:[id number] Type:Not on file Address: [address] [place] [address] Care Teams Assembler Relationship Specialty Start Date End Date Celso Mathur PA PCP - General Physician Guardian Family Member 09/17/24
[2025-01-12 11:41] LABS: Hematocrit 35.5 % (37.0-47.0); Hemoglobin 11.7 g/dl (12.0-16.0); Mean Corpuscular Hemoglobin 28.2 pg (27.0-33.0); Mean Corpuscular Volume 85.5 fL (80.0-98.0); Platelet Count 267 X10*3/uL (160-400); Red Blood Count 4.15 X10*6/uL (4.20-5.50); Red Cell Distribution Width 13.8 % (11.0-16.0); White Blood Count 7.8 X10*3/uL (4.8-10.8)
[2025-01-12 11:45] LABS: Appearance Urine Clear; Color Urine Yellow; Glucose Urine UA Negative (Negative); Leukocyte Esterase Urine Trace (Negative); Nitrite Urine Negative (Negative); PH 5.5 (5.0-9.0); Specific Gravity - Urine 1.015 (1.005-1.025); UMIC TRIGGER UACC YES; Urine Blood Negative (Negative); Urine Ketones Negative (Negative); Urine Protein Negative (Neg-Trace)
[2025-01-12 11:48] LABS: Bacteria Urine None Seen (None Seen); Hyaline Casts Urine 0-2 /LPF (0-2); RBC Urine 0-2 /HPF (0-2); Squamous Epithelial Cell Urine 0-2 /HPF (0-2); WBC Urine 0-5 /HPF (0-5)
[2025-01-12 12:40] LABS: Alanine Aminotransferase 20 U/L (0-31); Albumin Level 4.3 g/dL (3.5-5.0); Alkaline Phosphatase 37 U/L (39-117); Anion Gap 16 (12-20); Aspartate Amino Transferase 20 U/L (5-31); Bilirubin Total 0.5 mg/dL (0.0-1.0); Blood Urea Nitrogen 14 mg/dL (9-16); Carbon Dioxide 20 mmol/L (22-29); Chloride 109 mmol/L (96-108); Estimated Glomerular Filt Rate > 60; Glucose Random 137 mg/dL (60-115); Lipase 25 U/L (8-78); Potassium 3.6 mmol/L (3.3-5.1); Sodium 141 mmol/L (135-145); Total Protein 7.5 g/dL (6.5-8.0)
[2025-01-12 12:43] LABS: Creatinine Urine 88.62 mg/dL; Microalbum/Creatinine Ratio Ur 21.4 ug/mg cr (<30)
== END 2025-01-12 09:26 | disposition home or self-care (01) ==
LOC: HO.LAB 09:25
PROVIDERS: PCP Physician Assistant; Visit Provider Physician Assistant
DX: I10 Essential (primary) hypertension (principal); R10.84 Generalized abdominal pain; E11.65 Type 2 diabetes mellitus with hyperglycemia; R35.0 Frequency of micturition; Z88.9 Allergy status to unspecified drugs, medicaments and biological substances
CPT/HCPCS: 36415; 80053; 81001; 82043; 82570; 83036; 83690; 85027; 96127; 99212

== ENCOUNTER 2025-01-13 13:56 | Outpatient (REF) | payer OTHER, SELFPAY ==
[2025-01-13 14:25] LABS: MANUAL DIFF FLAG NO
[2025-01-13 14:38] LABS: Basophils Absolute Auto 0.1 X10*3/uL (0.0-0.2); Basophils Percent Auto 0.8 % (0-2); Eosinophils Absolute Auto 0.7 X10*3/uL (0.0-0.4); Eosinophils Percent Auto 9.3 % (0-4); Hematocrit 35.1 % (37.0-47.0); Hemoglobin 11.9 g/dl (12.0-16.0); Imm Gran Abs Auto 0.02 X10*3/uL (0.00-0.03); Imm Gran Pct Auto 0.3 % (0.0-0.4); Lymphocytes Absolute Auto 2.2 X10*3/uL (1.2-4.9); Lymphocytes Percent Auto 28.4 % (20-40); Mean Corpuscular HGB Conc 33.9 g/dl (31.0-35.0); Mean Corpuscular Hemoglobin 28.4 pg (27.0-33.0); Mean Corpuscular Volume 83.8 fL (80.0-98.0); Mean Platelet Volume 9.5 fL (9.4-12.3); Monocytes Absolute Auto 0.5 X10*3/uL (0.1-1.2); Monocytes Percent Auto 6.4 % (2-11); Neutrophils Absolute Auto 4.3 x10*3/uL (2.0-8.3); Neutrophils Percent Auto 54.8 % (45-73); Platelet Count 269 X10*3/uL (160-400); Red Blood Count 4.19 X10*6/uL (4.20-5.50); Red Cell Distribution Width 13.9 % (11.0-16.0); White Blood Count 7.8 X10*3/uL (4.8-10.8)
[2025-01-13 15:20] LABS: Erythrocyte Sedimentation Rate 16 MM/HR (0-20)
[2025-01-13 16:54] LABS: Alanine Aminotransferase 21 U/L (0-31); Albumin Level 4.3 g/dL (3.5-5.0); Alkaline Phosphatase 39 U/L (39-117); Anion Gap 13 (12-20); Aspartate Amino Transferase 19 U/L (5-31); Bilirubin Total 0.6 mg/dL (0.0-1.0); Blood Urea Nitrogen 17 mg/dL (9-16); C Reactive Protein 0.18 mg/dL (< or = 0.50); Calcium 10.1 mg/dL (8.4-10.2); Carbon Dioxide 24 mmol/L (22-29); Chloride 108 mmol/L (96-108); Estimated Glomerular Filt Rate > 60; Glucose Random 156 mg/dL (60-115); Potassium 3.8 mmol/L (3.3-5.1); Sodium 141 mmol/L (135-145); Total Protein 7.6 g/dL (6.5-8.0)
--- OUTSIDE RECORDS SUMMARY | 2025-01-13 17:42 | XMS_ITS | Clinical Summary ---
Author Organization [facility] [address] [facility] Address [address] [place] [address] Phone Care Team Providers Care Cryogenics Repairer Name Role Phone Celso Mathur Primary Care Provider Allergies Active Allergy Reactions Criticality Noted Date Comments Amitriptyline 08/09/2020 [place] hyper Dicyclomine Hives,Rash 07/14/2014 Dicyclomine Hydrocodone-Acetaminophen Hives [...] 1 (one) time each day. 4 Active TestCredTouch Ultra Test test strip USE TO TEST [...] PM EST Office Visit Obstetrics and Gynecology [address] [phone] Kristina Earl MD Vaginal inclusion cyst [N89.8] (Primary Dx) from Last 3 Months Immunizations Name Administration Dates Next Due Pneumococcal conjugate 13 va lent (Prevnar 13, PCV13) 2mo and older 09/17/2019 Pneumococcal polysaccharide 23 valent (Pneumovax 23) 2yo and older 01/01/2016 Surgical History Surgery Date Site/Laterality Comments KIDNEY STONE SURGERY 04/2014 PROCEDURE: [place] NEPHROLITHOTOMY REMOVAL CALCULUS; COMMENT: x 3 TUBAL LIGATION PROCEDURE: HISTORICAL TUBAL LIGATION COLONOSCOPY 04/26/2011 PROCEDURE: HISTORICAL COLONOSCOPY; COMMENT: Diverticulosis, Repeat 10 yrs UPPER GASTROINTESTINAL ENDOSCOPY 09/24/2002 PROCEDURE: [place] UPPER GI ENDOSCOPY PERFORMED; COMMENT: hiatal hernia, mod retained bile suggestive of decreased gastric emptying UPPER GASTROINTESTINAL ENDOSCOPY 05/20/2012 PROCEDURE: [place] UPPER GI ENDOSCOPY PERFORMED; COMMENT: Reactive gastropathy OTHER SURGICAL HISTORY 07/23/2016 PROCEDURE: HISTORY OTHER; COMMENT: vocal cord polyps removed, Dr Altaf Nicole CARPAL TUNNEL RELEASE 05/2019 Left PROCEDURE: HISTORICAL CARPAL TUNNEL REL UPPER GASTROINTESTINAL ENDOSCOPY 11/05/2018 PROCEDURE: [place] UPPER GI ENDOSCOPY PERFORMED; COMMENT: Functional dyspepsia [...] Diabetic neuropathy (CMS/HCC) 08/09/2020 DX :Diabetic neuropathy ([facility]); COMMENT: Feet Type 2 diabetes mellitus wit h neurologic complication (CMS/HCC) 08/09/2020 DX:Type 2 diabetes m ellitus with neurologic complication (HCC) Seasonal allergies 08/09/2020 DX:Seasonal a llergies Slow transit constipation 08/09/2020 DX:Slo w transit constipation Aortic atherosclerosis (CMS/HCC) 08/09/2020 DX:Aortic atherosclerosis (HCC) Cataract 08/09/2020 DX:Cataract; COM MENT: Bilateral Type 2 diabetes mellitus wit h cataract ([facility]/HCC) 08/09/2020 DX:Type 2 diabetes mellitus with [...] for your loved ones. For example, child advocate or elderly care for an older adult? [...] Urine No growth 10/19/2024 8:02 AM EST [facility] Urine Urine specimen obtained by clean catch procedure / Unknown Non-blood Collection / Unknown 10/18/2024 11:55 AM EST 10/18/2024 11:55 AM EST Maame [facility] LAB MICROBIOLOGY - GENERAL ORDERABLES Final Result [facility] [address] [place] [address], * Urine Albumin Creatinine Ratio (10/30/2020) [facility] Urine Albumin Creatinine Ratio Abstracted Result [facility] Historical Provider HEALTH MAINTENANCE Final Result * Annual BMP Blood Test (10/30/2020) [facility] Annual BMP Blood Test Abstracted Result [facility] Provider HEALTH MAINTENANCE Final Result * (ABNORMAL) Hemoglobin A1c (10/30/2020) [facility] Hemoglobin A1C 7.6(A) <=6.5 % Blood Venous blood specimen / Unknown Result [facility] Provider MD LAB BLOOD ORDERABLES Grace l Result * Lipid panel (07/28/2020) [facility] LDL/HDL Ratio 3 0 - 4 Triglycerides 123 0 - 150 mg/dL Cholesterol 135 0 - 200 mg/dL HDL 50 >=40 mg/dL LDL Cholesterol 61 0 - 100 mg/dL Blood Venous blood specimen / Unknown Result [facility] Historical Provider MD LAB BLOOD ORDERABLES Grace l Result from Last 3 Months or Most Recently Relevant to Health Maintenance Insurance [facility] Member Subscriber Plan / Payer ( fective 2019-Present) Name:Roslyn Navarrete Relation to Subscriber:Self Name:Roslyn Navarrete Payer ID:[id number] Group ID:[id number] Type:Not on file Address: [address] [place] [address] [employer] MED[employer] Member Subscriber Plan / Payer ( fective 2019-Present) Name:Roslyn Navarrete Relation to Subscriber:Self Name:Roslyn Navarrete Payer ID:[id number] Group ID:[id number] Type:Not on file Address: [address] [place] [address] Care Teams Cryogenics Repairer Relationship Specialty Start Date End Date Celso Mathur PA PCP - General Physician Branch Examiner 09/17/24
== END 2025-01-13 13:57 | disposition home or self-care (01) ==
LOC: HO.LAB 13:56
PROVIDERS: PCP Physician Assistant; Visit Provider Student in an Organized Health Care Education/Training Program
DX: M06.00 Rheumatoid arthritis without rheumatoid factor, unspecified site (principal); R10.9 Unspecified abdominal pain
CPT/HCPCS: 36415; 80053; 85025; 85652; 86140

== ENCOUNTER 2025-01-18 13:48 | Outpatient (AMB) | payer OTHER, SELFPAY ==
[2025-01-18 13:52] VITALS: BP 136/74; PULSE 97; O2SAT 99; BMI 27.1
--- NOTE | 2025-01-18 13:52 | A.OFFVIS_ITS ---
Vital Signs 01/18/25 13:52 Height 5 ft 4 in Weight 158 lb BMI 27.1 BP 136/74 Blood Pressure Location Lt brachial Position Sitting Pulse 97 Pulse Source Pulse Oximeter Pulse Oximetry (%) 99 Oxygen Delivery Method Room Air Intake Visit Reasons: RA Intake Note: Patient last seen by Doctor Ruddy Aldrich on 11/30/24. Presents today for RA follow and test results. Patient states she is getting a rash where she injects herself with the Humira. Allergies etanercept [From Enbrel] Allergy (Intermediate, Verified 01/18/25 13:53) Rash cetirizine Allergy (Mild, Verified 01/18/25 13:59) Hives dicyclomine [From BENTYL] Allergy (Unknown, Verified 01/18/25 13:53) HIVES hydrocodone [HYDROCODONE] Allergy (Unknown, Verified 01/18/25 13:53) UNKNOWN ibuprofen [From MOTRIN] Allergy (Unknown, Verified 01/18/25 13:53) HIVES Iodinated Contrast Media [IV CONTRAST] Allergy (Unknown, Verified 01/18/25 13:53) ITCHING minocycline [MINOCYCLINE] Allergy (Unknown, Verified 01/18/25 13:53) UNK morphine [MORPHINE] Allergy (Unknown, Verified 01/18/25 13:53) UNKNOWN naproxen [NAPROXEN] Allergy (Unknown, Verified 01/18/25 13:53) UNKOWN peanut [PEANUT] Allergy (Unknown, Verified 01/18/25 13:53) HIVES sulfamethoxazole [From BACTRIM] Allergy (Unknown, Verified 01/18/25 13:53) UNKNOWN tramadol [TRAMADOL] Allergy (Unknown, Verified 01/18/25 13:53) UNK trimethoprim [From BACTRIM] Allergy (Unknown, Verified 01/18/25 13:53) UNKNOWN lisinopril Allergy (Verified 01/18/25 13:53) Abdominal Pain methotrexate Allergy (Verified 01/18/25 13:53) Joint Pain metronidazole [From Flagyl] Allergy (Verified 01/18/25 13:53) Hives glipizide Adverse Reaction (Intermediate, Verified 01/18/25 13:53) neuropathy amitriptyline [AMITRIPTYLINE] Adverse Reaction (Mild, Verified 01/18/25 13:53) HYPER metoclopramide [From REGLAN] Adverse Reaction (Mild, Verified 01/18/25 13:53) HYPER latex [LATEX] Adverse Reaction (Unknown, Verified 01/18/25 13:53) RASH phenylephrine [PHENYLEPHRINE] Adverse Reaction (Unknown, Verified 01/18/25 13:53) UNKNOWN promethazine [From PHENERGAN] Adverse Reaction (Unknown, Verified 01/18/25 13:53) UNK glipizide Allergy (Mild, Uncoded 01/18/25 13:53) Rash SHELLFISH Allergy (Unknown, Uncoded 01/18/25 13:53) HIVES Medication List - Last Reconciled 01/18/25 by Sarah Aldrich MD acetaminophen-codeine 300-30 mg 1 tab PO BID PRN adalimumab (Humira(CF) Pen) 40 mg (0.4 mL) subcut Q2W atorvastatin 40 mg PO DAILY blood pressure monitor As directed blood sugar diagnostic (FreeStyle Test strips) As directed blood-glucose meter (FreeStyle [place] Lite kit) As directed diphenhydramine HCl (Allergy (diphenhydramine)) 50 mg (2 x 25 mg) PO DIRECTED lancets (FreeStyle Lancets) As directed losartan 50 mg PO DAILY 90 days metformin ER 1,000 mg (2 x 500 mg) PO BID 90 days polyethylene glycol 3350 (HealthyLax) 17 grams PO DAILY PRN rabeprazole 20 mg PO BID sucralfate 1 g PO BID tirzepatide (Mounjaro) 2.5 mg (0.5 mL) subcut QWEEK 4 weeks triamcinolone acetonide 0.1% 1 appl topical DAILY 15 days walker (Ultra-Light Rollator misc) As directed HPI Comments Details: Patient is a 69-year-old female with diabetes, hypertension, hyperlipidemia and seronegative rheumatoid arthritis here today for an urgent visit. Interval History: Patient last seen 11/30/24 with me. At that time she was here for an urgent visit for an allergic reaction to Enbrel. She had a rash which required her to go to the emergency department and was on prednisolone for this. After that visit she was changed to Humira unfortunately today she states that she has started develop a rash in the Humira. She reached out to her PCP who gave her a short course of prednisolone and a referral to Allergy and immunology due to her various drug allergies. Today patient reports she is doing okay has a small patch of a rash on her right thigh. Joints are stable. Rheumatologic History: -ve RF -ve CCP dx 09/2024 MTX started 09/2024 DC 11/2024 ineffective Enbrel 11/2024. Allergic reaction (rash) Humira 12/2024-01/2025. Allergic reaction (rash) Current Rheumatology Medication(s): Humira 40mg SC every other week (currently not taking due to allergic reaction) [facility] Medical History (Updated 01/18/25 @ 14:58 by Sarah Aldrich MD) HTN (hypertension) Migraine GERD (gastroesophageal reflux disease) Diabetes Surgical History Hx of colonoscopy History of esophagogastroduodenoscopy (EGD) S/P carpal tunnel release Family History Maternal Grandmother Colon cancer Social History Housing: Apartment Alcohol intake: never Patient Tobacco Use Status: Never used Tobacco e-Cigarette/Vaping Use: Never Used Second Hand Smoke Exposure: No Advance Directives Date on File: 04/25/23 service: No Current occupational status: disabled Cognitive needs: No Hearing needs: No Vision needs: No Review of Systems Const Details: Review of Systems Constitutional: Denies fever, chills, weight loss ENT: Denies vision changes, eye pain or eye redness, dental caries, dry mouth GI: Denies nausea, vomiting, diarrhea, abdominal pain, change in BM Pulm: Denies SOB, LEVINE, hemoptysis, wheezing Cards: Denies chest pain, palpitations Skin: Denies Raynaud's, rash, nail changes, photosensitivity, D[employer] CRUSHING: Denies headaches, weakness, paresthesias, recurrent falls MSK: as per HPI All other systems reviewed and are unremarkable except noted above Physical Exam Vital Signs: Last Vital Signs Pulse 97 01/18/25 13:52 BP 136/74 01/18/25 13:52 Pulse Ox 99 01/18/25 13:52 Oxygen Delivery Method Room Air 01/18/25 13:52 BMI result Body Mass Index 27.1 Vital signs reviewed Physical Examination CONSTITUITIONAL Patient alert and cooperative. Well appearing and in no apparent painful distress HEENT Conjunctiva and sclera clear. ?Pupils equal round and reactive to light. ?No lymphadenopathy. ? CHEST/RESPIRATORY SYSTEM Normal respiratory effort and able to speak in complete sentences. ?Clear to auscultation bilaterally. ?No crackles, rales, rhonchi, wheezes heard. CARDIAC SYSTEM Regular rate and rhythm. ?S1 and S2 heard no murmurs. ?Radial pulses intact bilaterally MSK Hands: ?Good sales support specialist strength bilaterally. No deformities noted. ?No tenderness to palpation of the MCPs or PIPs. Wrists: ?Full range of motion at the wrists without pain. ?No tenderness to palpation or synovitis noted to the wrists. Elbows: Full range of motion without pain. No tenderness, weakness, swelling, increased warmth or erythema. Shoulders: Full range of motion without pain. No tenderness, weakness, swelling, increased warmth or erythema. Hips: Full range of motion without pain. Hip bursa: No tenderness to palpation Knees: ?Full range of motion. ?No tenderness, swelling, increased warmth or erythema.?No effusion or crepitations Ankles: Full range of motion. ?No tenderness, swelling, increased warmth or erythema.? Feet: ?Negative squeeze test. ?No tenderness to palpation or swelling of the MTPs. Tender points:?No tenderness to palpation of the bilateral trapezius, supraspinatus, greater trochanters, anterior costochondral junctions, bilateral gluteal areas, bilateral suboccipital muscle insertions SKIN 5 cm small patch of rash located on anterior right thigh at site of previous injection Results Reviewed Results Reviewed: Laboratory Tests 11/08/24 01/13/25 14:32 14:23 WBC 7.8 RBC 4.19 L Hgb 11.9 L Hct 35.1 L Plt Count 269 ESR 16 Sodium 141 Potassium 3.8 Chloride 108 Carbon Dioxide 24 BUN 17 H AST 19 ALT 21 Alkaline Phosphatase 39 C-Reactive Protein 7.31 H 0.18 Immunology labs 09/01/24 16:29 Rheumatoid Factor < 13.0 Cycl Citrul Peptide IgG <16 SARATH Screen NEGATIVE Infectious serologies 09/01/24 11/08/24 16:29 14:32 Hepatitis A IgM Ab Nonreactive Hep Bs Antigen Negative Hep Bs Antibody NONREACTIVE Hep B Core Total Ab Nonreactive Hepatitis C Ab (EIA) Nonreactive TB Test (T-Spot) Com Negative Assessment & Plan Assessment & Plan (1) Seronegative rheumatoid arthritis: Comment: -ve RF -ve CCP dx 09/2024 MTX started 09/2024 DC 11/2024 ineffective Enbrel 11/2024 allergic reaction after 2 doses Humira 11/2024 - 01/2025. Allergic reaction. Rash Leflunomide 01/2025 Code(s): M06.00 - Rheumatoid arthritis without rheumatoid factor, unspecified site Category: Medical Plan: #Seronegative RA Patient is a 69-year-old female with seronegative rheumatoid arthritis currently in remission however can no longer continue Humira due to rash. We will switch to leflunomide to see if she has efficacy with this medication as she does not seem to be having good reactions to injectables. Plan - Stop Humira - Start leflunomide 20mg daily - RTC 3 months - Labs before next visit: CBC, CMP, ESR, CRP (2) Allergic drug reaction: Code(s): T78.40XA - Allergy, unspecified, initial encounter Qualifiers: Encounter type: initial encounter Qualified Code(s): T78.40XA - Allergy, unspecified, initial encounter Plan: #Allergic reaction to Humira Small rash on thigh which is how the previous reaction with enbrel started Plan - Stop Humira - Agree with allergy and immunology follow up (3) Encounter for monitoring leflunomide therapy: Code(s): Z51.81 - Encounter for therapeutic drug level monitoring; Z79.69 - halfway (current) use of other immunomodulators and immunosuppressants Plan: #Long-term leflunomide Discussed with patient the benefits and risks of leflunomide for managing the rheumatic condition Benefits include: - Reduced pain, maintenance of remission and reduction of flares Risks include: - GI upset especially diarrhea, skin rash, cytopenias, hepatotoxicity, weight loss, neuropathy Leflunomide is highly teratogenic. ?Has a very long half-life. ?Needs cholestyramine washout if there is desire for Initiation: ?CBC, BMP, LFTs, hepatitis-B and C serologies every 2-4 weeks for 3 months Monitoring: ?CBC, BMP, LFTs, hepatitis B and C serologies Plan I spent 35 minutes reviewing the record and labs, taking a history, examining the patient, discussing the treatment plan and documenting in the medical record Medications: New leflunomide 20 mg PO DAILY 90 tabs 1RF Z51.81 - Encounter for therapeutic drug level monitoring, Z79.69 - halfway (current) use of other immunomodulators and immunosuppressants Discontinued adalimumab (Humira(CF) Pen) Discontinued Reason: Doctor's Order 40 mg (0.4 mL) subcut Q2W 2 ea 4RF M06.00 - Rheumatoid arthritis without rheumatoid factor, unspecified site Coding Level of Care Code Est Pt Level 4 (30753) Complex EM visit Add On G2211 Diagnoses Seronegative rheumatoid arthritis M06.00 Allergic reaction to drug, initial encounter T78.40XA Encounter type: initial encounter Encounter for monitoring leflunomide therapy Z51.81; Z79.69
== END 2025-01-18 14:34 | disposition home or self-care (01) ==
LOC: HO.RHE 13:48
PROVIDERS: PCP Physician Assistant; Visit Provider Student in an Organized Health Care Education/Training Program
DX: M06.09 Rheumatoid arthritis without rheumatoid factor, multiple sites (principal); T78.40XA Allergy, unspecified, initial encounter; Z51.81 Encounter for therapeutic drug level monitoring; Z79.69 Long term (current) use of other immunomodulators and immunosuppressants
CPT/HCPCS: 99214; G2211

== ENCOUNTER → 2025-01-18 13:48 | Outpatient (BNVA) | payer OTHER, SELFPAY | PROVIDERS: PCP Physician Assistant; Visit Provider Student in an Organized Health Care Education/Training Program | DX: M06.00 Rheumatoid arthritis without rheumatoid factor, unspecified site (principal); T78.40XA Allergy, unspecified, initial encounter; Z51.81 Encounter for therapeutic drug level monitoring; Z79.69 Long term (current) use of other immunomodulators and immunosuppressants | CPT/HCPCS: 99212 ==

== ENCOUNTER 2025-01-24 07:54 | Outpatient (REF) | payer OTHER, SELFPAY | END 2025-01-24 07:55 | disposition home or self-care (01) | LOC: HO.LNP 07:54 | PROVIDERS: Visit Provider Physician Assistant | DX: R10.84 Generalized abdominal pain (principal) | CPT/HCPCS: 87338 ==

== ENCOUNTER 2025-02-15 08:55 | Outpatient (REF) | payer OTHER, SELFPAY ==
--- NOTE | ~2025-02-15 | US_ITS ---
EXAMINATION: US ABDOMEN HISTORY: R10.84 - Generalized abdominal pain TECHNIQUE: Real-time grayscale ultrasound imaging of the abdomen was performed and images were reviewed. COMPARISON: Relation is made with a CT of the abdomen with contrast dated 02/03/2024. FINDINGS: Liver: The right lobe of the liver measures 15.3 cm in size. The left lobe of the liver measures 10.9 cm in size. The liver demonstrates increased echotexture, consistent with steatosis. There is focal fatty sparing adjacent to the gallbladder. No focal mass or intrahepatic biliary ductal dilatation is identified. There is normal hepatopedal flow in the portal vein. Gallbladder and biliary tree: The gallbladder is unremarkable, without evidence of calculi, wall thickening, or pericholecystic fluid. There is no sonographic Honeycutt sign. The common bile duct is normal in caliber measuring 5 mm. Kidneys: The right kidney measures 10.8 cm in length. The left kidney measures 11.2 cm in length. There are multiple bilateral renal cysts. The largest right-sided cyst is at the lower pole measuring 10 mm in size and demonstrates a septation. The largest cysts on the left are in the interpolar region measuring 2.6 x 1.9 x 2.0 cm and at the lower pole measuring 2.4 x 2.2 x 2.3 cm. The lower pole cyst demonstrates a septation. The kidneys are unremarkable, without evidence of masses, hydronephrosis, or calculi. Pancreas: The pancreatic head, neck, and body are unremarkable. The pancreatic tail is obscured by bowel gas. Spleen: The spleen is normal in size and contour, measuring 9.6 cm in length. Abdominal aorta and inferior vena cava: The visualized portions of the abdominal aorta and inferior vena cava are normal in caliber. There is no free fluid in the abdomen. US/US abdomen complete IMPRESSION: 1. Hepatomegaly and hepatic steatosis. 2. Bilateral renal cysts as described. Electronically signed by: Tawanda Hussein MD 02/15/2025 12:51 PM EDT
--- OUTSIDE RECORDS SUMMARY | 2025-02-15 09:25 | XMS_ITS | Clinical Summary ---
Author Organization [facility] [address] [facility] Address [address] [place] [address] Phone Care Team Providers Care Biosolids Management Technician Name Role Phone Celso Mathur Primary Care Provider Allergies Active Allergy Reactions Criticality Noted Date Comments Amitriptyline 08/09/2020 [place] hyper Dicyclomine Hives,Rash 07/14/2014 Dicyclomine Hydrocodone-Acetaminophen Hives [...] 1 (one) time each day. 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 ([facility]/HCC V24, [facility]/HCC V28) 09/20/2024 COVID-19 virus infection 01/31/2021 Overview (09/20/2024): 11/2020 per patient Abnormal mammogram of left breast 12/26/2020 Overview (09/20/2024): 12/2020, ordering diagnostic mammo and u/s Anxiety 08/09/2020 Aortic atherosclerosis ([facility] V24) 08/09/2020 Carpal tunnel syndrome 08/09/2020 Overview (09/20/2024): Bilateral, 05/2019 Left CTR Cataract 08/09/2020 Overview (09/20/2024): Bilateral Cholelithiasis 08/09/2020 Diabetic neuropathy ([facility] V24, [facility] V28) 1 Overview (09/20/2024): Feet Glaucoma suspect 08/09/2020 Overview (09/20/2024): Left eye Hypertension 08/09/2020 Lactose intolerance 08/09/2020 Microalbuminuria 08/09/2020 Migraines 08/09/2020 Overview (09/20/2024): episodic Nephrolithiasis 08/09/2020 Seasonal allergies 08/09/2020 Slow transit constipation 08/09/2020 Type 2 diabetes mellitus wit h cataract ([facility] V24, [facility] V28) 08/09/2020 Type 2 diabetes mellitus wit h neurologic complication ([facility] V24, [facility] V28) 08/09/2020 Immunizations Name Administration Dates Next Due Pneumococcal conjugate 13 va lent (Prevnar 13, PCV13) 2mo and older 09/17/2019 Pneumococcal polysaccharide 23 valent (Pneumovax 23) 2yo and older 01/01/2016 Surgical History Surgery Date Site/Laterality Comments KIDNEY STONE SURGERY 04/2014 PROCEDURE: [place] NEPHROLITHOTOMY REMOVAL CALCULUS; COMMENT: x 3 TUBAL LIGATION PROCEDURE: HISTORICAL TUBAL LIGATION COLONOSCOPY 04/26/2011 PROCEDURE: HISTORICAL COLONOSCOPY; COMMENT: Diverticulosis, Repeat 10 yrs UPPER GASTROINTESTINAL ENDOSCOPY 09/24/2002 PROCEDURE: [place] UPPER GI ENDOSCOPY PERFORMED; COMMENT: hiatal hernia, mod retained bile suggestive of decreased gastric emptying UPPER GASTROINTESTINAL ENDOSCOPY 05/20/2012 PROCEDURE: [place] UPPER GI ENDOSCOPY PERFORMED; COMMENT: Reactive gastropathy OTHER SURGICAL HISTORY 07/23/2016 PROCEDURE: HISTORY OTHER; COMMENT: vocal cord polyps removed, Dr Altaf Nicole CARPAL TUNNEL RELEASE 05/2019 Left PROCEDURE: HISTORICAL CARPAL TUNNEL REL UPPER GASTROINTESTINAL ENDOSCOPY 11/05/2018 PROCEDURE: [place] UPPER GI ENDOSCOPY PERFORMED; COMMENT: Functional dyspepsia Medical History Medical History Date Comments Hyperlipidemia DX:Hyperlipidemi a GERD (gastroesophageal reflux disease) DX:GERD (gastroesophageal reflux disease) 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 ([facility] V24, [facility] V28) DX:Type 2 diabetes mellitus with renal complication (HCC) Microalbuminuria 08/09/2020 DX:Microalbumin uria Nephrolithiasis 08/09/2020 DX:Nephrolithias is Anxiety 08/09/2020 DX:Anxiety Lactose intolerance 08/09/2020 DX:Lactose i ntolerance Cholelithiasis 08/09/2020 DX:Cholelithiasi s Diabetic neuropathy ([facility] V24, [facility] V28) 08/09/2020 DX:Diabetic neuropathy ([facility]) ; COMMENT: Feet Type 2 diabetes mellitus wit h neurologic complication ([facility] V24, [facility] V28) 08/09/2020 DX:Type 2 diabetes mellitus with neurologic complication (HCC) Seasonal allergies 08/09/2020 DX:Seasonal a llergies Slow transit constipation 08/09/2020 DX:Slo w transit constipation Aortic atherosclerosis ([facility] V24) 08/09/2020 DX:Aortic atherosclerosis (HCC) Cataract 08/09/2020 DX:Cataract; COM MENT: Bilateral Type 2 diabetes mellitus wit h cataract ([facility] V24, [facility] V28) 08/09/2020 DX:Type 2 diabetes mellitus with cataract [...] your loved ones. For example, child caregiver private home or elderly care for an older adult? [...] - Risk 3-dose series) 2014 RSV Immunization Adult Patients (1 - Risk 60-74 years 1-dose series) [...] age to complete this topic Meningococcal B Vaccine Aged Out No l onger eligible based on patient's age to complete this topic RSV Immunization Patients Under 20 months Aged Out No longer eligible based on patient's age to complete this topic Varicella Vaccines Aged Out No longer eligible based on patient's age to complete this topic Procedures Procedure Name Priority Date/Time Associated Diagnosis Comments URINE ALBUMIN CREATININE RATIO Routine 10/30/2020 ANNUAL BMP BLOOD TEST Routine 10/30/2020 HEMOGLOBIN A1C Routine 10/30/2020 LIPID PANEL Routine 07/28/2020 from Last 3 Months or Most Recently Relevant to Health Maintenance Results * Urine Albumin Creatinine Ratio (10/30/2020) Urine Albumin Creatinine Ratio Abstracted us Historical Provider HEALTH MAINTENANCE Final Result * Annual BMP Blood Test (10/30/2020) Annual BMP Blood Test Abstracted Result [facility] Historical Provider HEALTH MAINTENANCE Final Result * (ABNORMAL) Hemoglobin A1c (10/30/2020) Hemoglobin A1C 7.6(A) <=6.5 % Blood Venous blood specimen / Unknown Result [facility] Historical Provider LAB BLOOD ORDERABLES Grace l Result * Lipid panel (07/28/2020) LDL/HDL Ratio 3 0 - 4 Triglycerides 123 0 - 150 mg/dL Cholesterol 135 0 - 200 mg/dL HDL 50 >=40 mg/dL LDL Cholesterol 61 0 - 100 mg/dL Blood Venous blood specimen / Unknown Result [facility] Historical Provider LAB BLOOD ORDERABLES Grace l Result from Last 3 Months or Most Recently Relevant to Health Maintenance Insurance [facility] Member Subscriber Plan / Payer ( fective 2019-Present) Name:Roslyn Navarrete Relation to Subscriber:Self Name:Roslyn Navarrete Payer ID:[id number] Group ID:[id number] Type:Not on file Address: [address] [place] [address] [facility] MEDICARE Member Subscriber Plan / Payer ( fective 2019-Present) Name:Roslyn Navarrete Relation to Subscriber:Self Name:Roslyn Navarrete Payer ID:[id number] Group ID:[id number] Type:Not on file Address: [address] [place] [address] Care Teams Biosolids Management Technician Relationship Specialty Start Date End Date Celso Mathur PA PCP - General Physician Painter Rough 09/17/24
--- OUTSIDE RECORDS SUMMARY | 2025-02-15 09:25 | XMS_ITS | Continuity of Care Document ---
Author Organization [place] - [facility], [facility] Address [address] [place] [address] Care Team Providers Care Windows Systems Admin Name Role Phone NGOCLORENZO Referring Provider Assessment No assessment recorded. Plan of Treatment Reminders Order Date Submit Date Provider Last Modified By Organization Details Last Modified Time Details Appointments None record ed. Lab None record ed. Referral None record ed. Procedures None record ed. Surgeries None record ed. Imaging None record ed. Medication Orders None record ed. Patient TargetsNo targets recorded. Patient InstructionsNo instructions recorded. Reason for Referral None Reported. Problems Name Problem SNOMED Code Status Onset Date Resolution Date Notes Provider Name and Address Organization Details Recorded Time Dysphonia 48317325 Active 2015 Hoarsenes s; Note: Date Diagnosed : 03/18/2016 2:56 PM (R49.0) Not Available [facility] 4 02:44:16 Foreign body in left ear [id number] 622172 Active 2018 Foreign body in left ear, initial encounter ; Note: Date Diagnosed : 9 1:46 PM (T16.2XXA ) Not Available [facility] 4 02:44:17 Follow-up visit Active 2016 Medical surveilla nce following completed treatment ; Note: Date Diagnosed : 01/08/2017 1:44 PM (Z09) Not Available [facility] 4 02:44:21 Polyp of vocal cord or larynx 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 2015 Polyp of vocal cord and larynx; Note: Date Diagnosed : 03/18/2016 2:56 PM (J38.1) Not Available [facility] 4 02:44:17 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 Procedures Surgical History Date Name Laterality Status Provider Name and Address Organization Details Recorded Time 02/14/2025 NasalEndos copy_DP completed OSWALDO GONZALEZ MD [address] [facility],[place] [address], [place], [address], [facility] - [facility] 02/14/2025 14:46:15 Imaging Results None recorded. Procedure Notes None recorded. Medical Equipment None Reported. Allergies Allergen ID Allergen Name Allergen Category Reaction Reaction Severity Criticality Documentation Date Start Date Code Code System Note Provider Name and Address Organization Details Recorded Time 447754 Bactrim medicatio n Not available Not available Not available 02/14/2025 53926 9 RxNorm Ginnette Rancitell i null, [place] - [facility] 14:18:15 808639 Reglan medicatio n Not available Not available Not available 02/14/2025 9230 RxNorm Ginnette Rancitell i null, [place] - [facility] 14:20:38 746819 dicyclomi ne medicatio n Not available Not available Not available 02/14/2025 3361 RxNorm Ginnette Rancitell i null, [place] - [facility] 14:21:11 636439 amitripty line medicatio n Not available Not available Not available 02/14/2025 704 RxNorm Ginnette Rancitell i null, [place] - [facility] 14:21:21 570264 latex environme nt,medica tion Not available Not available Not available 02/14/2025 50919 91 RxNorm Ginnette Rancitell i null, [place] - [facility] 5 14:21:33 097709 naproxen medicatio n Not available Not available Not available 02/14/2025 7258 RxNorm Ginnette Rancitell i null, [place] - [facility] 5 14:21:48 344026 hydrocodo ne Not available Not available Not available Not available 02/14/2025 5489 RxNorm Ginnette Rancitell i null, [place] - [facility] 5 14:22:02 118397 tramadol medicatio n Not available Not available Not available 02/14/2025 15904 RxNorm Ginnette Rancitell i null, [place] - [facility] 5 14:22:11 88256 ibuprofen medicatio n other Not available Not available 03/16/2024 5640 RxNorm React ion: unkno wn, unspe cifie d;; Not Available [facility] 4 00:58:51 77943 diphenhyd ramine hydrochlo ride medicatio n other Not available Not available 03/16/2024 1362 RxNorm React ion: unkno wn, unspe cifie d;; Not Available [facility] 4 00:58:52 96573 promethaz ine hydrochlo ride medicatio n other Not available Not available 03/16/2024 23234 5 RxNorm React ion: unkno wn, unspe cifie d;; Not Available [facility] 4 00:59:01 52305 Substance with sulfonami de structure and antibacte rial mechanism of action (substanc e) medicatio n other Not available Not available 03/16/2024 32636 8003 SNOMED React ion: unkno wn, unspe cifie d;; Not Available [facility] 4 00:59:03 Medications Name Sig Start Date Stop Date Status Note LastModified by Organization Details LastModified Time losartan 50 mg tablet TAKE 1 TABLET BY MOUTH EVERY DAY active Not Available Not Available No t Available atorvastat in 40 mg tablet TAKE 1 TABLET BY MOUTH DAILY active Not Available Not Available No t Available metformin 500 mg tablet 2015 active Medicatio n ID: [id number] Du ration Value: 30 Brand Name: metformin Send Method: E-Prescri bed Subs Allowed: subs OK Medica tionGener icName: metformin Not Available Not Available Not Available prednisone 10 mg tablet TAKE 3 TABS DAILY FOR 1 WEEK THEN 2 TABS DAILY FOR 1 WEEK THEN 1 TAB DAILY FOR 1 WEEK THEN STOP active Not Available Not Available No t Available rabeprazol e 20 mg tablet,del ayed release TAKE 1 TABLET BY MOUTH EVERY DAY active Not Available Not Available No t Available cetirizine 10 mg tablet TAKE 1 TABLET DAILY NEEDED FOR ALLERGY SYMPTOMS active Not Available Not Available No t Available glipizide ER 10 mg tablet, extended release 24 hr active Medicatio n ID: [id number] Du ration Value: 90 Brand Name: glipizide Send Method: E-Prescri bed Subs Allowed: subs OK Medica tionGener icName: glipizide Not Available Not Available Not Available prednisone 20 mg tablet TAKE 1 TABLET BY MOUTH EVERY DAY FOR 7 DAYS active Not Available Not Available No t Available lovastatin 40 mg tablet 2015 active Medicatio n ID: [id number] Du ration Value: 30 Brand Name: lovastati n Send Method: E-Prescri bed Subs Allowed: subs OK Specia l Instructi on: TAKE 1 TABLET BY MOUTH EVERY DAY Medic ationGene ricName: lovastati n Not Available Not Available Not Available prednisone 5 mg tablet TAKE 2 TABS DAILY FOR 2 WEEKS THEN 1 TAB DAILY FOR 2 WEEKS THEN STOP active Not Available Not Available No t Available acetaminop hen 300 mg-codeine 30 mg tablet TAKE 1 TABLET BY MOUTH 2 TIMES A DAY NEEDED FOR SEVERE PAIN (SCALE SCORE 7-10) active Not Available Not Available No t Available aspirin 81 mg tablet,del ayed release 2015 active Medicatio n ID: [id number] Du ration Value: 30 Brand Name: aspirin S end Method: E-Prescri bed Subs Allowed: subs OK Specia l Instructi on: TAKE 1 TABLET BY MOUTH EVERY DAY Medic ationGene ricName: aspirin Not Available Not Available Not Available leflunomid e 20 mg tablet TAKE 1 TABLET BY MOUTH EVERY DAY active Not Available Not Available No t Available lorazepam 0.5 mg tablet TAKE 1 TABLET BY MOUTH EVERY DAY FOR ANXIETY FOR 5 DAYS active Not Available Not Available No t Available methotrexa te sodium 2.5 mg tablet TAKE 6 TABLETS BY MOUTH WEEKLY active Not Available Not Available No t Available glipizide ER 2.5 mg tablet, extended release 24 hr TAKE 1 TABLET BY MOUTH EVERY DAY active Not Available Not Available No t Available prednisone 50 mg tablet TAKE 1 TABLET BY MOUTH EVERY DAY active Not Available Not Available No t Available pyridoxine (vitamin B6) 50 mg tablet active Medicatio n ID: [id number] Du ration Value: 90 Brand Name: pyridoxin e (vitamin B6) Send Method: E-Prescri bed Subs Allowed: subs OK Medica tionGener icName: pyridoxin e (vitamin B6) Not Available Not Available Not Available omeprazole 20 mg capsule,de layed release 2015 active Medicatio n ID: [id number] Du ration Value: 30 Brand Name: omeprazol e Send Method: E-Prescri bed Subs Allowed: subs OK Medica tionGener icName: omeprazol e Not Available Not Available Not Available folic acid 1 mg tablet TAKE 1 TABLET BY MOUTH DAILY active Not Available Not Available No t Available alcohol swabs 2015 active Medicatio n ID: [id number] Du ration Value: 50 Brand Name: alcohol swabs Sen d Method: E-Prescri bed Subs Allowed: subs OK [facility] ic[facility]: alcohol swabs Not Available Not Available Not Available gabapentin 100 mg capsule TAKE 1 CAPSULE ORALLY 2 TIMES A DAY FOR 15 DAYS active Not Available Not Available No t Available metformin ER 500 mg tablet,ext ended release 24 hr TAKE 2 TABLETS BY MOUTH TWICE A DAY active Not Available Not Available No t Available amoxicilli n 875 mg-potassi um clavulanat e 125 mg tablet TAKE 1 TABLET BY MOUTH TWICE A DAY active Not Available Not Available No t Available magnesium 250 mg (as magnesium oxide) tablet TAKE 1 TABLET BY MOUTH EVERY DAY active Not Available Not Available No t Available Purelax 17 gram/dose oral powder active Medicatio n ID: [id number] Du ration Value: 21 Brand Name: Purelax S end Method: E-Prescri bed Subs Allowed: subs OK Medica tionGener icName: Purelax Not Available Not Available Not Available sodium,pot assium,mag sulfates 17.5 gram-3.13 gram-1.6 gram oral soln DILUTE DRINK 1/2 AT 6-8 PM AND HALF AT 11 PM- 1AM PER OFFICE DIRECTION S active Not Available Not Available No t Available Mounjaro 2.5 mg/0.5 mL subcutaneo us pen injector 2.5 MG (0.5 ML) SUBCUTANE OUSLY EVERY WEEK FOR 4 WEEKS FOR 4 WEEKS active Not Available Not Available No t Available Vitals Date Recorded Body height Body mass index (BMI) Body weight Provider Name and Address Organization Details Last Updated DateTime 02/14/2025 162.56 cm 25.9 kg/m2 47620.45 g Eduardo Kapadia [place] - [facility] 02/14/2025 14:13:11 Social History None recorded. Functional Status None recorded. Mental Status None recorded. Family History Nothing Reported. Medical History Condition Response Arthritis Y Migraines Y Hypertension Y Depression Y Gynecological HistoryNo gynecological history recorded. Obstetrics History GPAL:G 0 P 0 0 0 0 Past Encounters Encounter ID Performer Location Encounter Start Date Encounter Closed Date Diagnosis/Indication Diagnosis SNOMED-CT Code Diagnosis ICD10 Code Diagnosis Note [id number] OSWALDO GONZALEZ MD [facility] on [address] [place] [address] 02/14/2025 13:35:28 02/14/2025 16:52:34 Polyp of nasal cavity and/or nasal sinus 098575904 J33.9 Exam and nasal endoscopy were negative for polyps. I gave reassuranc e. Nasal vestibulitis 07082 000 J34.89 She is actually pointing to an area in the nasal vestibule. I did not see any lesions. There is nothing to biopsy. I gave reassuranc e. I told her if something grows back she can call us for reevaluati on. Health Concerns Section Related Observation LastModified by Organization Detai ls LastModified Time None Recorded Concern Status LastModified by Organization Details LastModified Time None Recorded Payers Encounter Date Sequence Insurance Name Policy Number Policy Dupont Covered Member ID Dupont Member ID Guarantor Name 02/14/2025 1 [facility] - DOS ON OR AFTER 2023 - MEDICARE [place]VANTAGE [place] (MEDICARE REPLACEMENT/ADV ANTAGE - PPO) Roslyn Navarrete [id number] Roslyn Navarrete Notes Date Note Type Note Provider Name and Address Organization Details Recorded Time 02/14/2025 text/html For about 5 years she has noted polyps in her nose herself. She says sometimes they are there and sometimes not. She denies nasal obstruction. Wanted to have them checked. Denies facial pain. No sinusitis. She does not smoke. Had a DL with VC biopsy with Dr. Nicole in 2016. OSWALDO GONZALEZ MD [address] [place] [address], [place], [address], [facility] - [facility] 02/14/2025 14:53:09 OBGyn Episode No OBEpisode recorded.
== END 2025-02-15 08:56 | disposition home or self-care (01) ==
LOC: HO.US 08:55
PROVIDERS: PCP Physician Assistant; Visit Provider Physician Assistant
DX: R10.84 Generalized abdominal pain (principal)
CPT/HCPCS: 76700

== ENCOUNTER → 2025-02-15 09:04 | Outpatient (BNV) | payer OTHER, SELFPAY | PROVIDERS: PCP Physician Assistant; Visit Provider Radiology Diagnostic Radiology | DX: R10.84 Generalized abdominal pain (principal); R16.0 Hepatomegaly, not elsewhere classified; K76.0 Fatty (change of) liver, not elsewhere classified; N28.1 Cyst of kidney, acquired | CPT/HCPCS: 76700 ==

== ENCOUNTER 2025-03-08 12:57 | Outpatient (AMB) | payer OTHER, SELFPAY ==
--- NOTE | 2025-03-08 13:00 | MHC.OFFVIS ---
Vital Signs 03/08/25 13:05 Height 5 ft 4 in Weight 158 lb BMI 27.1 Intake Visit Reasons: Inj- Bilateral knee pain last inj 12/07/24 Intake Note: Roslyn is a 69 year old female who presents with complaints of bilateral knee pains. She describes her pains as achy in nature. She has had injections in the past which gave her fairly good relief. She wishes to hold off on surgery if at all possible. She has tried Tylenol and anti-inflammatory medicines which gave her mild relief. Allergies etanercept [From Enbrel] Allergy (Intermediate, Verified 03/08/25 13:05) Rash cetirizine Allergy (Mild, Verified 03/08/25 13:05) Hives dicyclomine [From BENTYL] Allergy (Unknown, Verified 03/08/25 13:05) HIVES hydrocodone [HYDROCODONE] Allergy (Unknown, Verified 03/08/25 13:05) UNKNOWN ibuprofen [From MOTRIN] Allergy (Unknown, Verified 03/08/25 13:05) HIVES Iodinated Contrast Media [IV CONTRAST] Allergy (Unknown, Verified 03/08/25 13:05) ITCHING minocycline [MINOCYCLINE] Allergy (Unknown, Verified 03/08/25 13:05) UNK morphine [MORPHINE] Allergy (Unknown, Verified 03/08/25 13:05) UNKNOWN naproxen [NAPROXEN] Allergy (Unknown, Verified 03/08/25 13:05) UNKOWN peanut [PEANUT] Allergy (Unknown, Verified 03/08/25 13:05) HIVES sulfamethoxazole [From BACTRIM] Allergy (Unknown, Verified 03/08/25 13:05) UNKNOWN tramadol [TRAMADOL] Allergy (Unknown, Verified 03/08/25 13:05) UNK trimethoprim [From BACTRIM] Allergy (Unknown, Verified 03/08/25 13:05) UNKNOWN lisinopril Allergy (Verified 03/08/25 13:05) Abdominal Pain methotrexate Allergy (Verified 03/08/25 13:05) Joint Pain metronidazole [From Flagyl] Allergy (Verified 03/08/25 13:05) Hives glipizide Adverse Reaction (Intermediate, Verified 03/08/25 13:05) neuropathy amitriptyline [AMITRIPTYLINE] Adverse Reaction (Mild, Verified 03/08/25 13:05) HYPER metoclopramide [From REGLAN] Adverse Reaction (Mild, Verified 03/08/25 13:05) HYPER latex [LATEX] Adverse Reaction (Unknown, Verified 03/08/25 13:05) RASH phenylephrine [PHENYLEPHRINE] Adverse Reaction (Unknown, Verified 03/08/25 13:05) UNKNOWN promethazine [From PHENERGAN] Adverse Reaction (Unknown, Verified 03/08/25 13:05) UNK glipizide Allergy (Mild, Uncoded 03/08/25 13:05) Rash SHELLFISH Allergy (Unknown, Uncoded 03/08/25 13:05) HIVES Medication List - Last Reconciled 03/08/25 by Kam Crowell MD acetaminophen-codeine 300-30 mg 1 tab PO BID PRN atorvastatin 40 mg PO DAILY blood pressure monitor As directed blood sugar diagnostic (iKaazStyle Test strips) As directed blood-glucose meter ([place] Lite kit) As directed diphenhydramine HCl (Allergy (diphenhydramine)) 50 mg (2 x 25 mg) PO DIRECTED lancets (iKaazStyle Lancets) As directed leflunomide 20 mg PO DAILY losartan 50 mg PO DAILY 90 days metformin ER 1,000 mg (2 x 500 mg) PO BID 90 days polyethylene glycol 3350 (HealthyLax) 17 grams PO DAILY PRN rabeprazole 20 mg PO DAILY sucralfate 1 g PO BID tirzepatide (Mounjaro) 2.5 mg (0.5 mL) subcut QWEEK 4 weeks triamcinolone acetonide 0.1% 1 appl topical DAILY 15 days walker (Ultra-Light Rollator misc) As directed [facility] Medical History (Updated 03/08/25 @ 13:59 by Kam Crowell MD) HTN (hypertension) Migraine GERD (gastroesophageal reflux disease) Diabetes Surgical History Hx of colonoscopy History of esophagogastroduodenoscopy (EGD) S/P carpal tunnel release Family History Maternal Grandmother Colon cancer Social History Housing: Apartment Alcohol intake: never Patient Tobacco Use Status: Never used Tobacco e-Cigarette/Vaping Use: Never Used Second Hand Smoke Exposure: No Advance Directives Date on File: 04/25/23 service: No Current occupational status: disabled Cognitive needs: No Hearing needs: No Vision needs: No Physical Exam Vital Signs: BMI result Body Mass Index 27.1 Const Other: Well-nourished well-developed very friendly female awake alert and oriented x3 in no acute distress Extrem Other: Bilateral lower extremity examination shows good capillary refill, no skin lesions noted, normal sensation light touch Bilateral knee examination shows minimal effusions, palpable crepitus with range of motion, pain with range motion, no instability Office Procedures AMB Joint Injection/Aspiration Joint Injection/Aspiration Primary Site: right knee Prep: site was prepped using aseptic technique Injected: 40 mg of, DepoMedrol and 1% plain lidocaine Procedure: The patient tolerated the procedure well Coding 17384 - Large joint Procedure code (CPT) selection complete AMB Joint Injection/Aspiration Joint Injection/Aspiration Primary Site: left knee Prep: site was prepped using aseptic technique Injected: 40 mg of, DepoMedrol and 1% plain lidocaine Procedure: The patient tolerated the procedure well Coding 28986 - Large joint Procedure code (CPT) selection complete Assessment & Plan Assessment & Plan (1) Arthritis of left knee: Code(s): M17.12 - Unilateral primary osteoarthritis, left knee Category: Medical (2) Arthritis of right knee: Code(s): M17.11 - Unilateral primary osteoarthritis, right knee Category: Medical Plan Ms. Rosalba Willoughby presents with bilateral knee pains due to degenerative joint disease. The risks and benefits of bilateral knee cortisone injections were discussed at length with the patient. The patient wished to proceed. She tolerated the injections well. She will continue with her home exercise program. She will contact me prior to her follow-up appointment in 3 months should any questions or concerns arise. Feel free to call me at any time should questions regarding her orthopedic management arise. I spent 20 minutes in reviewing the patient's records and imaging studies, seeing the patient and documenting in the medical record. Orders: Orders AMB Joint Injection/Aspiration Today M17.12 - Unilateral primary osteoarthritis, left knee AMB Joint Injection/Aspiration Today M17.11 - Unilateral primary osteoarthritis, right knee Coding Level of Care Code Est Pt Level 3 (58576) Complex EM visit Add On G2211 Diagnoses Arthritis of left knee M17.12 Arthritis of right knee M17.11 CPT Codes Coding - 14279 Large joint: 68058 - Large joint ([id number]) Coding - 25020 Large joint: 72201 - Large joint ([id number])
[2025-03-08 13:05] VITALS: BMI 27.1
--- OUTSIDE RECORDS SUMMARY | 2025-03-08 14:07 | XMS_ITS | Clinical Summary ---
Author Organization [facility] [address] [facility] Address [address] [place] [address] Phone Care Team Providers Care Copper Plate Lithographer Name Role Phone Celso Mathur Primary Care Provider Allergies Active Allergy Reactions Criticality Noted Date Comments Amitriptyline 08/09/2020 [place] hyper Dicyclomine Hives,Rash 07/14/2014 Dicyclomine Hydrocodone-Acetaminophen Hives [...] 1 (one) time each day. 4 Active Profoundis LabsTouch Ultra Test test strip USE TO TEST [...] 2 diabetes mellitus wit h renal complication ([facility]/HCC V24, [facility]/HCC V28) 09/20/2024 COVID-19 virus infection 01/31/2021 Overview (09/20/2024): 11/2020 per patient Abnormal mammogram of left breast 12/26/2020 Overview (09/20/2024): 12/2020, ordering diagnostic mammo and u/s Anxiety 08/09/2020 Aortic atherosclerosis ([facility] V24) 08/09/2020 Carpal tunnel syndrome 08/09/2020 Overview (09/20/2024): Bilateral, 05/2019 Left CTR Cataract 08/09/2020 Overview (09/20/2024): Bilateral Cholelithiasis 08/09/2020 Diabetic neuropathy ([facility] V24, [facility] V28) 1 Overview (09/20/2024): Feet Glaucoma suspect 08/09/2020 Overview (09/20/2024): Left eye Hypertension 08/09/2020 Lactose intolerance 08/09/2020 Microalbuminuria 08/09/2020 Migraines 08/09/2020 Overview (09/20/2024): episodic Nephrolithiasis 08/09/2020 Seasonal allergies 08/09/2020 Slow transit constipation 08/09/2020 Type 2 diabetes mellitus wit h cataract ([facility] V24, [facility] V28) 08/09/2020 Type 2 diabetes mellitus wit h neurologic complication ([facility] V24, [facility] V28) 08/09/2020 Immunizations Name Administration Dates Next Due Pneumococcal conjugate 13 va lent (Prevnar 13, PCV13) 2mo and older 09/17/2019 Pneumococcal polysaccharide 23 valent (Pneumovax 23) 2yo and older 01/01/2016 Surgical History Surgery Date Site/Laterality Comments KIDNEY STONE SURGERY 04/2014 PROCEDURE: NC NEPHROLITHOTOMY REMOVAL CALCULUS; COMMENT: x 3 TUBAL LIGATION PROCEDURE: HISTORICAL TUBAL LIGATION COLONOSCOPY 04/26/2011 PROCEDURE: HISTORICAL COLONOSCOPY; COMMENT: Diverticulosis, Repeat 10 yrs UPPER GASTROINTESTINAL ENDOSCOPY 09/24/2002 PROCEDURE: NC UPPER GI ENDOSCOPY PERFORMED; COMMENT: hiatal hernia, mod retained bile suggestive of decreased gastric emptying UPPER GASTROINTESTINAL ENDOSCOPY 05/20/2012 PROCEDURE: NC UPPER GI ENDOSCOPY PERFORMED; COMMENT: Reactive gastropathy OTHER SURGICAL HISTORY 07/23/2016 PROCEDURE: HISTORY OTHER; COMMENT: vocal cord polyps removed, Dr Altaf Nicole CARPAL TUNNEL RELEASE 05/2019 Left PROCEDURE: HISTORICAL CARPAL TUNNEL REL UPPER GASTROINTESTINAL ENDOSCOPY 11/05/2018 PROCEDURE: NC UPPER GI ENDOSCOPY PERFORMED; COMMENT: Functional dyspepsia Medical History Medical History Date Comments Hyperlipidemia DX:Hyperlipidemi a GERD (gastroesophageal reflux disease) DX:GERD (gastroesophageal reflux disease) 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 ([facility] V24, [facility] V28) DX:Type 2 diabetes mellitus with renal complication (HCC) Microalbuminuria 08/09/2020 DX:Microalbumin uria Nephrolithiasis 08/09/2020 DX:Nephrolithias is Anxiety 08/09/2020 DX:Anxiety Lactose intolerance 08/09/2020 DX:Lactose i ntolerance Cholelithiasis 08/09/2020 DX:Cholelithiasi s Diabetic neuropathy ([facility] V24, [facility] V28) 08/09/2020 DX:Diabetic neuropathy ([facility]) ; COMMENT: Feet Type 2 diabetes mellitus wit h neurologic complication ([facility] V24, [facility] V28) 08/09/2020 DX:Type 2 diabetes mellitus with neurologic complication (HCC) Seasonal allergies 08/09/2020 DX:Seasonal a llergies Slow transit constipation 08/09/2020 DX:Slo w transit constipation Aortic atherosclerosis ([facility] V24) 08/09/2020 DX:Aortic atherosclerosis (HCC) Cataract 08/09/2020 DX:Cataract; COM MENT: Bilateral Type 2 diabetes mellitus wit h cataract ([facility] V24, [facility] V28) 08/09/2020 DX:Type 2 diabetes mellitus with [...] for your loved ones. For example, child nutrition manager or elderly care for an older adult? [...] PCV20 or PCV21) 09/17/2024 09/17/2019, 09/17/2019, 01/01/2016 COVID-19 Vaccine (7 - season) 2025 07/04/2024, 11/06/2023, 09/12/2022, Additional history exists Cholesterol Screening (Lipid Panel) 07/28/2025 07/28/2020 Depression Screening 10/04/2025 10/04/2024 Social Influencers of Health Screening 10/04/2025 10/04/2024 DTaP,Tdap,and Td Vaccines (4 - Td or Tdap) 11/04/2031 11/04/2021, 04/25/2013, 01/18/2008 Influenza Vaccine Completed 07/04/2024, , 07/02/2022, Additional [...] Ratio (10/30/2020) Urine Albumin Creatinine Ratio Abstracted Historical Provider HEALTH MAINTENANCE Final Result * Annual BMP Blood Test (10/30/2020) Annual BMP Blood Test Abstracted [facility] Provider HEALTH MAINTENANCE Final Result * (ABNORMAL) Hemoglobin A1c (10/30/2020) Pathologist [facility] Hemoglobin A1C 7.6(A) <=6.5 % Blood Venous blood specimen / Unknown Result [facility] Provider LAB BLOOD ORDERABLES Grace l Result * Lipid panel (07/28/2020) Pathologist [facility] LDL/HDL Ratio 3 0 - 4 Triglycerides 123 0 - 150 mg/dL Cholesterol 135 0 - 200 mg/dL HDL 50 >=40 mg/dL LDL Cholesterol 61 0 - 100 mg/dL Blood Venous blood specimen / Unknown Result [facility] Provider LAB BLOOD ORDERABLES Grace l Result from Last 3 Months or Most Recently Relevant to Health Maintenance Insurance [facility] Member Subscriber Plan / Payer ( fective 2019-Present) Name:Roslyn Navarrete Relation to Subscriber:Self Name:Roslyn Navarrete Payer ID:[id number] Group ID:[id number] Type:Not on file Address: [address] [place] [address] [facility] MEDICARE Member Subscriber Plan / Payer ( fective 2019-Present) Name:Roslyn Navarrete Relation to Subscriber:Self Name:Roslyn Nvaarrete Payer ID:[id number] Group ID:[id number] Type:Not on file Address: [address] [place] [address] Care Teams Copper Plate Lithographer Relationship Specialty Start Date End Date Celso Mathur PA PCP - General Physician Signal Mechanic 09/17/24
--- OUTSIDE RECORDS SUMMARY | 2025-03-08 14:07 | XMS_ITS | Data Portability ---
Author Organization [place] [facility], All[facility] Address [address] [place] [address] Care Team Providers Care Lens Mounter Name Role Phone NGOCLORENZO Referring Provider Assessment [...] and Address Organization Details Recorded Time Dysphonia 77489268 Active 2015 Hoarsenes s; Note: Date Diagnosed : 03/18/2016 2:56 PM (R49.0) Not Available [facility] 4 02:44:16 Foreign body in left ear [id number] 619399 Active 2018 Foreign body in left ear, initial encounter ; Note: Date Diagnosed : 9 1:46 PM (T16.2XXA ) Not Available [facility] 4 02:44:17 Follow-up visit Active 2016 Medical surveilla nce following completed treatment ; Note: Date Diagnosed : 01/08/2017 1:44 PM (Z09) [facility] 4 02:44:21 Polyp of vocal cord or larynx 436774714 Active 2015 Polyp of vocal cord and larynx; Note: Date Diagnosed : 03/18/2016 2:56 PM (J38.1) [facility] 4 02:44:17 Polyp of nasal cavity and/or nasal sinus 786280100 Active 2024 OSWALDO GONZALEZ MD [address] [facility],[place] [address], [place], [address] , [facility] - [facility] 14:46:12 Nasal vestibuli tis 96030200 Active 2024 OSWALDO GONZALEZ MD [address] [facility] [facility],[place] [address], [facility] [place], [address] , [facility] - [facility] 14:52:34 Problem Notes None recorded. Procedures Surgical History Date Name Laterality Status Provider Name and Address Organization Details Recorded Time 02/14/2025 NasalEndos copy_DP completed OSWALDO GONZALEZ MD [address] [facility],[place] [address], [place], [address], [facility] - [facility] 02/14/2025 14:46:15 Imaging Results None recorded. Procedure Notes None recorded. Medical Equipment None Reported. Allergies Allergen ID Allergen Name Allergen Category Reaction Reaction Severity Criticality Documentation Date Start Date Code Code System Note Provider Name and Address Organization Details Recorded Time 026079 Bactrim medicatio n Not available Not available Not available 02/14/2025 40098 9 RxNorm Ginnette Rancitell i null, [place] [facility] 14:18:15 458339 Reglan medicatio n Not available Not available Not available 02/14/2025 9230 RxNorm Ginnette Rancitell i null, [place] [facility] 14:20:38 709201 dicyclomi ne medicatio n Not available Not available Not available 02/14/2025 3361 RxNorm Ginnette Rancitell i null, [place] [facility] 14:21:11 814911 amitripty line medicatio n Not available Not available Not available 02/14/2025 704 RxNorm Ginnette Rancitell i null, [place] [facility] 14:21:21 409624 latex environme nt,medica tion Not available Not available Not available 02/14/2025 45200 91 RxNorm Ginnette Rancitell i null, [place] - [facility] 5 14:21:33 382646 naproxen medicatio n Not available Not available Not available 02/14/2025 7258 RxNorm Ginnette Rancitell i null, [place] [facility] 5 14:21:48 314179 hydrocodo ne Not available Not available Not available Not available 02/14/2025 5489 RxNorm Ginnette Rancitell i null, [place] [facility] 5 14:22:02 826158 tramadol medicatio n Not available Not available Not available 02/14/2025 69884 RxNorm Ginnette Rancitell i null, [place] [facility] 5 14:22:11 94053 ibuprofen medicatio n other Not available Not available 03/16/2024 5640 RxNorm React ion: unkno wn, unspe cifie d;; Not Available [facility] 4 00:58:51 18039 diphenhyd ramine hydrochlo ride medicatio n other Not available Not available 03/16/2024 1362 RxNorm React ion: unkno wn, unspe cifie d;; Not Available [facility] 4 00:58:52 87466 promethaz ine hydrochlo ride medicatio n other Not available Not available 03/16/2024 01449 5 RxNorm React ion: unkno wn, unspe cifie d;; Not Available [facility] 4 00:59:01 43606 Substance with sulfonami de structure and antibacte rial mechanism of action (substanc e) medicatio n other Not available Not available 03/16/2024 00784 8003 SNOMED React ion: unkno wn, unspe cifie d;; Not Available [facility] 4 00:59:03 Medications Name Sig Start Date [...] mg tablet 2015 active Medicatio n ID: [id number] Du ration Value: 30 Brand Name: metformin [...] release 24 hr active Medicatio n ID: [id number] Du ration Value: 90 Brand Name: glipizide Send Method: E-Prescri bed Subs Allowed: subs OK Medica tionGener icName: glipizide Not Available Not Available Not Available prednisone 20 mg tablet TAKE 1 TABLET BY MOUTH EVERY DAY FOR 7 DAYS active Not Available Not Available No t Available lovastatin 40 mg tablet 2015 active Medicatio n ID: [id number] Du ration Value: 30 Brand Name: lovastati [...] ayed release 2015 active Medicatio n ID: [id number] Du ration Value: 30 Brand Name: aspirin [...] 50 mg tablet active Medicatio n ID: [id number] Du ration Value: 90 Brand Name: pyridoxin e (vitamin B6) Send Method: E-Prescri bed Subs Allowed: subs OK Medica tionGener icName: pyridoxin e (vitamin B6) Not Available Not Available Not Available omeprazole 20 mg capsule,de layed release 2015 active Medicatio n ID: [id number] Du ration Value: 30 Brand Name: omeprazol e Send Method: E-Prescri bed Subs Allowed: subs OK Medica tionGener icName: omeprazol e Not Available Not Available Not Available folic acid 1 mg tablet TAKE 1 TABLET BY MOUTH DAILY active Not Available Not Available No t Available alcohol swabs 2015 active Medicatio n ID: [id number] Du ration Value: 50 Brand Name: alcohol swabs Sen d Method: E-Prescri bed Subs Allowed: subs [place] [facility] alcohol swabs Not Available Not Available [...] gram/dose oral powder active Medicatio n ID: [id number] Du ration Value: 21 Brand Name: Purelax [...] Updated DateTime 02/14/2025 162.56 cm 25.9 kg/m2 61331.45 g Eduardo Kapadia [place] [facility] 02/14/2025 14:13:11 Social History None recorded. Functional [...] SNOMED-CT Code Diagnosis ICD10 Code Diagnosis Note [id number] OSWALDO GONZALEZ MD [facility] on [address] [place] [address] 02/14/2025 13:35:28 02/14/2025 16:52:34 Polyp of nasal cavity and/or nasal sinus 116768977 J33.9 Exam and nasal endoscopy were negative for polyps. I gave reassuranc e. Nasal vestibulitis 22894 000 J34.89 She is actually pointing to [...] by Organization Details LastModified Time None Recorded Advance Directives Directive None Recorded Payers Encounter Date Sequence Insurance Name Policy Number Policy Dupont Covered Member ID Dupont Member ID Guarantor Name 02/14/2025 1 [facility] - DOS ON OR AFTER 2023 - MEDICARE [place]VANTAGE [place] (MEDICARE REPLACEMENT/ADV ANTAGE - PPO) Roslyn Navarrete [id number] Roslyn Joslyn Rosalba Notes Date Note Type Note Provider Name [...] Dr. Nicole in 2016. OSWALDO GONZALEZ MD [address] [place] [address], [address], [facility] - [facility] 02/14/2025 14:53:09 OBGyn Episode No OBEpisode recorded.
== END 2025-03-08 13:21 | disposition home or self-care (01) ==
LOC: HO.HOS 12:57
PROVIDERS: PCP Physician Assistant; Visit Provider Orthopaedic Surgery
DX: M17.0 Bilateral primary osteoarthritis of knee (principal)
CPT/HCPCS: 20610

== ENCOUNTER → 2025-03-08 12:57 | Outpatient (BNVA) | payer OTHER, SELFPAY | PROVIDERS: PCP Physician Assistant; Visit Provider Orthopaedic Surgery | DX: M17.0 Bilateral primary osteoarthritis of knee (principal) | CPT/HCPCS: 20610; J1010; J2003 ==

== ENCOUNTER 2025-04-13 07:56 | Outpatient (REF) | payer OTHER, SELFPAY ==
--- OUTSIDE RECORDS SUMMARY | 2025-04-13 07:59 | XMS_ITS | Data Portability ---
Author Organization [place] [facility], All[facility] Address [address] [place] [address] Care Team Providers Care Bomb Squad Commander Name Role Phone NGOCLORENZO CROWLEY Referring Provider Assessment No assessment recorded. Plan [...] and Address Organization Details Recorded Time Dysphonia 72410990 Active 2015 Hoarsenes s; Note: Date Diagnosed : 03/18/2016 2:56 PM (R49.0) Not Available [facility] 4 02:44:16 Foreign body in left ear [id number] 744553 Active 2018 Foreign body in left ear, initial encounter ; Note: Date Diagnosed : 9 1:46 PM (T16.2XXA ) [facility] 4 02:44:17 Follow-up visit Active 2016 Medical surveilla nce following completed treatment ; Note: Date Diagnosed : 01/08/2017 1:44 PM (Z09) [facility] 4 02:44:21 Polyp of vocal cord or larynx 018275800 Active 2015 Polyp of vocal cord and larynx; Note: Date Diagnosed : 03/18/2016 2:56 PM (J38.1) [facility] Available [facility] 4 02:44:17 Polyp of nasal cavity and/or nasal sinus 190968027 Active 2024 OSWALDO GONZALEZ MD [address] [facility],[place] [address], [place], [address] , [facility] - [facility] 14:46:12 Nasal vestibuli tis 77012692 Active 2024 OSWALDO GONZALEZ MD [address] [facility] [facility],[place] [address], [facility] [place], [address] , [facility] - [facility] 14:52:34 Problem Notes None recorded. Procedures Surgical History Date Name Laterality Status Provider Name and Address Organization Details Recorded Time 02/14/2025 NasalEndos copy_DP completed OSWALDO GONZALEZ MD [address] [facility],[place] [address], [place], [address], [facility] - [facility] 02/14/2025 14:46:15 Imaging Results None recorded. Procedure Notes None recorded. Medical Equipment None Reported. Allergies Allergen ID Allergen Name Allergen Category Reaction Reaction Severity Criticality Documentation Date Start Date Code Code System Note Provider Name and Address Organization Details Recorded Time 961030 Bactrim medicatio n Not available Not available Not available 02/14/2025 63153 9 RxNorm Ginnette Rancitell i null, [place] [facility] 14:18:15 588929 Reglan medicatio n Not available Not available Not available 02/14/2025 9230 RxNorm Ginnette Rancitell i null, [place] [facility] 14:20:38 650647 dicyclomi ne medicatio n Not available Not available Not available 02/14/2025 3361 RxNorm Ginnette Rancitell i null, [place] [facility] [place] 14:21:11 241111 amitripty line medicatio n Not available Not available Not available 02/14/2025 704 RxNorm Ginnette Rancitell i null, [place] [facility] [place] 14:21:21 846270 latex environme nt,medica tion Not available Not available Not available 02/14/2025 87783 91 RxNorm Ginnette Rancitell i null, [place] [facility] 5 14:21:33 829895 naproxen medicatio n Not available Not available Not available 02/14/2025 7258 RxNorm Ginnette Rancitell i null, [place] [facility] 5 14:21:48 426748 hydrocodo ne Not available Not available Not available Not available 02/14/2025 5489 RxNorm Ginnette Rancitell i null, [place] [facility] 5 14:22:02 585413 tramadol medicatio n Not available Not available Not available 02/14/2025 24623 RxNorm Ginnette Rancitell i null, [place] [facility] 5 14:22:11 18673 ibuprofen medicatio n other Not available Not available 03/16/2024 5640 RxNorm React ion: unkno wn, unspe cifie d;; Not Available formerly [facility] 4 00:58:51 37059 diphenhyd ramine hydrochlo ride medicatio n other Not available Not available 03/16/2024 1362 RxNorm React ion: unkno wn, unspe cifie d;; Not Available formerly [facility] 4 00:58:52 93745 promethaz ine hydrochlo ride medicatio n other Not available Not available 03/16/2024 50597 5 RxNorm React ion: unkno wn, unspe cifie d;; Not Available formerly [facility] 4 00:59:01 12888 Substance with sulfonami de structure and antibacte rial mechanism of action (substanc e) medicatio n other Not available Not available 03/16/2024 92622 8003 SNOMED React ion: unkno wn, unspe cifie d;; Not Available formerly [facility] 4 00:59:03 Medications Name Sig Start Date [...] mg tablet 2015 active Medicatio n ID: [id number] Du ration Value: 30 Brand Name: metformin [...] release 24 hr active Medicatio n ID: [id number] Du ration Value: 90 Brand Name: glipizide Send Method: E-Prescri bed Subs Allowed: subs OK Medica tionGener icName: glipizide Not Available Not Available Not Available prednisone 20 mg tablet TAKE 1 TABLET BY MOUTH EVERY DAY FOR 7 DAYS active Not Available Not Available No t Available lovastatin 40 mg tablet 2015 active Medicatio n ID: [id number] Du ration Value: 30 Brand Name: lovastati [...] ayed release 2015 active Medicatio n ID: [id number] Du ration Value: 30 Brand Name: aspirin [...] 50 mg tablet active Medicatio n ID: [id number] Du ration Value: 90 Brand Name: pyridoxin e (vitamin B6) Send Method: E-Prescri bed Subs Allowed: subs OK Medica tionGener icName: pyridoxin e (vitamin B6) Not Available Not Available Not Available omeprazole 20 mg capsule,de layed release 2015 active Medicatio n ID: [id number] Du ration Value: 30 Brand Name: omeprazol e Send Method: E-Prescri bed Subs Allowed: subs OK Medica tionGener icName: omeprazol e Not Available Not Available Not Available folic acid 1 mg tablet TAKE 1 TABLET BY MOUTH DAILY active Not Available Not Available No t Available alcohol swabs 2015 active Medicatio n ID: [id number] Du ration Value: 50 Brand Name: alcohol swabs Sen d Method: E-Prescri bed Subs Allowed: subs [place] [facility]: alcohol swabs Not Available Not Available [...] gram/dose oral powder active Medicatio n ID: [id number] Du ration Value: 21 Brand Name: Purelax [...] Updated DateTime 02/14/2025 162.56 cm 25.9 kg/m2 40605.45 g Eduardo Kapadia [place] [facility] 02/14/2025 14:13:11 Social History None recorded. Functional Status None recorded. Mental Status None recorded. Family History Nothing Reported. Medical History Condition Response Migraines Y Depression Y Arthritis Y Hypertension Y Gynecological HistoryNo gynecological history recorded. Obstetrics History GPAL:G 0 P 0 0 0 0 Past Encounters Encounter ID Performer Location Encounter Start Date Encounter Closed Date Diagnosis/Indication Diagnosis SNOMED-CT Code Diagnosis ICD10 Code Diagnosis Note [id number] OSWALDO GONZALEZ MD [facility] on [address] [place] [address] 02/14/2025 13:35:28 02/14/2025 16:52:34 Polyp of nasal cavity and/or nasal sinus 957249389 J33.9 Exam and nasal endoscopy were negative for polyps. I gave reassuranc e. Nasal vestibulitis 78435 000 J34.89 She is actually pointing to [...] Recorded Advance Directives Directive None Recorded Payers Insurance Date Sequence Insurance Name Policy Number Policy Dupont Covered Member ID Dupont Member ID Guarantor Name 02/24/2025 1 [facility] - DOS ON OR AFTER 2023 - MEDICARE [place]ANTAGE [place]ACEMENT/ADV ANTAGE - PPO) Roslyn Navarrete [id number] Roslyn Joslyn Rosalba Notes Date Note Type [...] Dr. Nicole in 2016. OSWALDO GONZALEZ MD [address] [place] [address], [address], [facility] - [facility] 02/14/2025 14:53:09 OBGyn Episode No OBEpisode recorded.
[2025-04-13 08:25] LABS: Hematocrit 35.7 % (37.0-47.0); Hemoglobin 11.6 g/dl (12.0-16.0); Mean Corpuscular HGB Conc 32.5 g/dl (31.0-35.0); Mean Corpuscular Hemoglobin 27.4 pg (27.0-33.0); Mean Corpuscular Volume 84.4 fL (80.0-98.0); Mean Platelet Volume 9.5 fL (9.4-12.3); Platelet Count 224 X10*3/uL (160-400); Red Blood Count 4.23 X10*6/uL (4.20-5.50); White Blood Count 5.6 X10*3/uL (4.8-10.8)
[2025-04-13 09:05] LABS: Alanine Aminotransferase 17 U/L (0-31); Albumin Level 4.7 g/dL (3.5-5.0); Alkaline Phosphatase 41 U/L (39-117); Anion Gap 12 (12-20); Aspartate Amino Transferase 24 U/L (5-31); Bilirubin Total 0.6 mg/dL (0.0-1.0); Blood Urea Nitrogen 18 mg/dL (9-16); Calcium 9.9 mg/dL (8.4-10.2); Carbon Dioxide 27 mmol/L (22-29); Chloride 106 mmol/L (96-108); Cholesterol 117 mg/dL (<200); Estimated Glomerular Filt Rate > 60; Glucose Fasting 116 mg/dL (60-99); HDL Cholesterol 40 mg/dL (>40); LDL Cholesterol Calculated 56 mg/dL (<100); Sodium 141 mmol/L (135-145); Total Protein 7.6 g/dL (6.5-8.0); Triglycerides 105 mg/dL (<150)
[2025-04-13 09:17] LABS: Appearance Urine Clear; Color Urine Yellow; Glucose Urine UA Negative (Negative); Leukocyte Esterase Urine Negative (Negative); Nitrite Urine Negative (Negative); Specific Gravity - Urine 1.015 (1.005-1.025); Urine Blood Negative (Negative); Urine Ketones Negative (Negative); Urine Protein Negative (Neg-Trace)
== END 2025-04-13 07:57 | disposition home or self-care (01) ==
LOC: HO.LAB 07:56
PROVIDERS: PCP Physician Assistant; Visit Provider Physician Assistant
DX: R30.0 Dysuria (principal); I10 Essential (primary) hypertension; E78.2 Mixed hyperlipidemia; R10.84 Generalized abdominal pain; R35.0 Frequency of micturition
CPT/HCPCS: 36415; 80053; 80061; 81003; 85027

== ENCOUNTER 2025-04-14 14:36 | Outpatient (AMB) | payer OTHER, SELFPAY ==
[2025-04-14 14:56] VITALS: BP 136/72; PULSE 96; TEMP 36.3; O2SAT 96; BMI 25.4
--- NOTE | 2025-04-14 14:56 | A.OFFPC_ITS ---
Vital Signs 04/14/25 14:56 Height 5 ft 4 in Weight 148 lb 2 oz BMI 25.4 BP 136/72 Blood Pressure Location Lt brachial Position Sitting Pulse 96 Pulse Source Pulse Oximeter Temp 97.3 F Temp Source Temporal Artery Scan Pulse Oximetry (%) 96 Oxygen Delivery Method Room Air Intake Visit Reasons: f/u Dmii Band Sewer Required: No Accompanied by: Self / Same As Patient Allergies etanercept [From Enbrel] Allergy (Intermediate, Verified 04/14/25 15:00) Rash cetirizine Allergy (Mild, Verified 04/14/25 15:00) Hives dicyclomine [From BENTYL] Allergy (Unknown, Verified 04/14/25 15:00) HIVES hydrocodone [HYDROCODONE] Allergy (Unknown, Verified 04/14/25 15:00) UNKNOWN ibuprofen [From MOTRIN] Allergy (Unknown, Verified 04/14/25 15:00) HIVES Iodinated Contrast Media [IV CONTRAST] Allergy (Unknown, Verified 04/14/25 15:00) ITCHING minocycline [MINOCYCLINE] Allergy (Unknown, Verified 04/14/25 15:00) UNK morphine [MORPHINE] Allergy (Unknown, Verified 04/14/25 15:00) UNKNOWN naproxen [NAPROXEN] Allergy (Unknown, Verified 04/14/25 15:00) UNKOWN peanut [PEANUT] Allergy (Unknown, Verified 04/14/25 15:00) HIVES sulfamethoxazole [From BACTRIM] Allergy (Unknown, Verified 04/14/25 15:00) UNKNOWN tramadol [TRAMADOL] Allergy (Unknown, Verified 04/14/25 15:00) UNK trimethoprim [From BACTRIM] Allergy (Unknown, Verified 04/14/25 15:00) UNKNOWN lisinopril Allergy (Verified 04/14/25 15:00) Abdominal Pain methotrexate Allergy (Verified 04/14/25 15:00) Joint Pain metronidazole [From Flagyl] Allergy (Verified 04/14/25 15:00) Hives glipizide Adverse Reaction (Intermediate, Verified 04/14/25 15:00) neuropathy amitriptyline [AMITRIPTYLINE] Adverse Reaction (Mild, Verified 04/14/25 15:00) HYPER metoclopramide [From REGLAN] Adverse Reaction (Mild, Verified 04/14/25 15:00) HYPER latex [LATEX] Adverse Reaction (Unknown, Verified 04/14/25 15:00) RASH phenylephrine [PHENYLEPHRINE] Adverse Reaction (Unknown, Verified 04/14/25 15:00) UNKNOWN promethazine [From PHENERGAN] Adverse Reaction (Unknown, Verified 04/14/25 15:00) UNK glipizide Allergy (Mild, Uncoded 04/14/25 15:00) Rash SHELLFISH Allergy (Unknown, Uncoded 04/14/25 15:00) HIVES Medication List - Last Reconciled 04/14/25 by Celso Mathur PA-C acetaminophen-codeine 300-30 mg 1 tab PO BID PRN atorvastatin 40 mg PO DAILY blood pressure monitor As directed blood sugar diagnostic (FreeStyle Test strips) As directed blood-glucose meter (FreeStyle Azalea Lite kit) As directed diphenhydramine HCl (Allergy (diphenhydramine)) 50 mg (2 x 25 mg) PO DIRECTED lancets (FreeStyle Lancets) As directed leflunomide 20 mg PO DAILY losartan 50 mg PO DAILY 90 days metformin ER 1,000 mg (2 x 500 mg) PO BID 90 days polyethylene glycol 3350 (HealthyLax) 17 grams PO DAILY PRN rabeprazole 20 mg PO DAILY sucralfate 1 g PO BID tirzepatide (Mounjaro) 2.5 mg (0.5 mL) subcut QWEEK 4 weeks triamcinolone acetonide 0.1% 1 appl topical DAILY 15 days walker (Ultra-Light Rollator misc) As directed Tobacco use date assessed: 01/12/25 Fall risk assessment: No Falls in past year Last assessed Fall Risk: 04/14/25 Dental Screening Dental Screen Date: 01/12/25 HPI f/u Dmii HPI Details Patient is a 69-year-old female here today for follow-up visit Patient has a past medical history significant for DMII/ HTN, HLD. Multiple drug and food allergies: She is now on levocetirizine in seeing a local insurance representative. She has been referred to [place] insurance representative in his awaiting appointment for further testing and treatment of her allergies. She has awaiting transportation for this appointment. .. DMII:? Patient continues on metformin 1000 b.i.d. she continues on GLP 1 as well. Her A1c has improved in his stable. She does report some loose stool and abdominal cramping thus will reduce her dose of metformin down to 500 b.i.d.. ? . Bilateral knee inflammatory arthritis: Has had a few flare-ups her knee pain to which she required p.o. steroids. She followed up with Orthopedic and did get steroid injections. She had allergic reaction to Enbrel. She also had allergic reaction to methotrexate.. She is now on Humira injections over the last 4-6 weeks .. HTN :? DOes check her BP at home and report 120s systiolic. Blood pressure today in office acceptable. ,, Hyperlipidemia:? Patient's most recent lipid panel acceptable with LDL below 100 Laboratory Tests 08/12/24 09/01/24 11/08/24 07:14 16:29 14:32 Hgb 11.0 L Creatinine 0.76 Random Glucose 152 H 153 H 125 H Fasting Glucose Hgb A1c (Clinic) C-Reactive Protein 1.16 H 7.31 H Cholesterol 01/12/25 04/13/25 09:27 08:12 Hgb 11.6 L Creatinine 0.89 Random Glucose Fasting Glucose 116 H Hgb A1c (Clinic) 7.2 H C-Reactive Protein Cholesterol 117 [facility] Medical History (Updated 04/14/25 @ 15:14 by Celso Mathur PA-C) HTN (hypertension) Migraine GERD (gastroesophageal reflux disease) Diabetes Surgical History Hx of colonoscopy History of esophagogastroduodenoscopy (EGD) S/P carpal tunnel release Family History Maternal Grandmother Colon cancer Social History Housing: Apartment Alcohol intake: never Patient Tobacco Use Status: Never used Tobacco e-Cigarette/Vaping Use: Never Used Second Hand Smoke Exposure: No Advance Directives Date on File: 04/25/23 service: No Current occupational status: disabled Cognitive needs: No Hearing needs: No Vision needs: No Questionnaire PHQ-9 Over the last 2 weeks, how often have you been bothered by any of the following problems? 1. Little interest or pleasure in doing things: not at all 2. Feeling down, depressed, or hopeless: not at all 3. Trouble falling or staying asleep, or sleeping too much: not at all 4. Feeling tired or having little energy: not at all 5. Poor appetite or overeating: not at all 6. Feeling bad about yourself - or that you are a failure or have let yourself or your family down: not at all 7. Trouble concentrating on things, such as reading the newspaper or watching television: not at all 8. Moving or speaking so slowly that other people could have noticed. Or the opposite - being so fidgety or restless that you have been moving around a lot more than usual: not at all 9. Thoughts that you would be better off or of hurting yourself in some way: not at all Total score: 0 Source: Developed by Drs. Tawanda Flores, Aparna Potter, Joon Adair and colleagues, with an educational sacha from [employer]. Thrive Questionnaire Date Thrive assessed: 04/14/25 I am a: Patient What is your living situation today?: I have a steady place to live Within the past 12 months, did the food you bought not last and you didn't have the money to get more?: Never true Within the past 12 months, did you worry whether your food would run out before you got money to buy more?: Never true Do you have trouble paying for medicines?: No Do you have trouble getting transportation to medical appointments?: No Do you have trouble paying your heating and electricity bill?: No Do you have trouble taking care of your child, family member or friend?: No Do you have trouble with day-to-day activities such as bathing, preparing meals, shopping, managing finances, etc.?: No Are you currently unemployed and looking for a job?: No Are you interested in more education?: No THRIVE Score: 0 CAMILLE-7 AMB Questionnaire CAMILLE-7 Date CAMILLE - 7 assessed: 01/12/25 Source: Developed by Drs. Tawanda Flores, Aparna Potter, Joon Adair and colleagues, with an educational sacha from [employer]. Review of Systems Const Denies headache(s) Eyes Denies loss of vision ENT Denies vertigo, Denies dizziness, Denies headache(s) and Denies sore throat Card Denies chest pain, Denies leg edema and Denies lightheadedness Resp Denies cough, Denies hemoptysis and Denies wheezing GI Denies abdominal pain, Denies melena, Denies constipation, Denies diarrhea and Denies vomiting Denies urinary frequency, Denies dysuria and Denies urinary urgency Musc Denies arthralgias, Denies joint swelling, Denies numbness and Denies tingling Neuro Denies Abnormal speech present, Denies behavioral changes, Denies vertigo, Denies dizziness, Denies headache(s), Denies loss of vision, Denies memory loss, Denies numbness and Denies tingling Psych Denies anxiety, Denies behavioral changes, Denies depression, Denies memory loss and Denies panic attacks Pawan/Lymph Denies easy bleeding and Denies easy bruising Aller/Immun Denies wheezing Physical exam (Primary Care) Vital Signs: Last Vital Signs Temp 97.3 F 04/14/25 14:56 Pulse 96 04/14/25 14:56 BP 136/72 04/14/25 14:56 Pulse Ox 96 04/14/25 14:56 Oxygen Delivery Method Room Air 04/14/25 14:56 BMI result Body Mass Index 25.4 Tobacco/Smoking Status: Tobacco use Status Tobacco use date assessed 01/12/25 04/14/25 14:57 Patient Tobacco Use Status Never used Tobacco 04/14/25 14:57 e-Cigarette/Vaping Use Never Used 04/14/25 14:57 PHQ-9: PHQ-9 Score PHQ-9: Total score 0 04/14/25 14:59 Thrive Assessment: Date of Thrive Assessment Date Thrive assessed 04/14/25 04/14/25 14:57 Const General: healthy appearing, no acute distress, alert and awake Nutritional Appearance: well nourished Orientation/consciousness: oriented to person, oriented to place and oriented to time HENMT Ears: TM's normal bilaterally General nose exam: Normal nasal mucous membranes and turbinates present Eyes Conjunctivae: conjunctivae normal Sclerae: sclerae normal Pupils: Equal, round and reactive pupils present Neck Neck: Yes no lymphadenopathy and Yes no JVD Thyroid: Thyroid normal Carotids: no bruits Resp Effort & Inspection: normal respiratory effort and not tachypneic Auscultation: no crackles, no rales, no rhonchi and no wheezes Cardio Rate: regular rate Rhythm: regular rhythm Heart sounds: no murmurs and normal S1 and S2 GI Palpation (GI): Soft to palpation, nontender, no hepatomegaly and no splenomegaly Auscultation: normal bowel sounds Skin General skin exam: no rashes or lesions noted and dry skin Neuro General: oriented to person, oriented to place and oriented to time Cranial nerves: Yes Equal, round and reactive pupils present Speech: No Abnormal speech present Gait exam (Neuro): Normal gait present Motor exam (neuro): no tremor noted Extrem Right upper extremity: full ROM Left upper extremity: full ROM Right lower extremity: full ROM; no edema Left lower extremity: full ROM; no edema Psych Mental Status: mental status grossly normal Speech and movement: Normal speech and movement present Affect: normal affect Attitude: cooperative Thought process: Normal thought process present Coding Level of Care Code Est Pt Level 4 (97946) Diagnoses Flexural eczema L20.82 Eczema type: flexural Multiple drug allergies Z88.9 Type 2 diabetes mellitus with hyperglycemia, without long-term current use of insulin E11.65 Diabetes mellitus complication status: with hyperglycemia Diabetes mellitus senior care insulin use: without senior care use Primary hypertension I10 Hypertension type: primary hypertension Mixed hyperlipidemia E78.2 Hyperlipidemia type: mixed hyperlipidemia Assessment & Plan Assessment & Plan (1) Eczema: Code(s): L30.9 - Dermatitis, unspecified Category: Medical Qualifiers: Eczema type: flexural Qualified Code(s): L20.82 - Flexural eczema Plan: Patient has noted small patches of dry scaly skin over her legs. She would like to start a steroid ointment to help reduce skin itch and (2) Multiple drug allergies: Code(s): Z88.9 - Allergy status to unspecified drugs, medicaments and biological substances Category: Medical Plan: Referral to allergy/docketing specialist for further evaluation of medication allergies, immune health. (3) DMII (diabetes mellitus, type 2): Code(s): E11.9 - Type 2 diabetes mellitus without complications Category: Medical Qualifiers: Diabetes mellitus complication status: with hyperglycemia Diabetes mellitus rn long term care insulin use: without senior care use Qualified Code(s): E11.65 - Type 2 diabetes mellitus with hyperglycemia Plan: Patient's type 2 diabetes much improved since starting alternative GLP 1 (monjaro) Today A1c at 6.2, will reduce her metformin to 500 b.i.d. to reduce any hypoglycemia or loose stool secondary side effects. Goal A1c is to remain below 7.0 (4) HTN (hypertension): Code(s): I10 - Essential (primary) hypertension Category: Medical Qualifiers: Hypertension type: primary hypertension Qualified Code(s): I10 - Essential (primary) hypertension Plan: Patient's blood pressure acceptable today in office. Will continue her current dose of antihypertensive medication with goal blood pressure to remain below 140/90 (5) HLD (hyperlipidemia): Code(s): E78.5 - Hyperlipidemia, unspecified Category: Medical Qualifiers: Hyperlipidemia type: mixed hyperlipidemia Qualified Code(s): E78.2 - Mixed hyperlipidemia Plan: Patient continues on statin therapy without side effect. Most recent lipid panel showing excellent control over total cholesterol and LDL. Goal LDL is to remain below 100. Medications: New mometasone 0.1% 1 appl topical DAILY 45 grams 1RF 30 days L30.9 - Dermatitis, unspecified Changed From metformin ER 1,000 mg (2 x 500 mg) PO BID 90 days 360 tabs 1RF E11.65 - Type 2 diabetes mellitus with hyperglycemia To metformin ER 500 mg PO BID 180 tabs 1RF 90 days E11.65 - Type 2 diabetes mellitus with hyperglycemia Discontinued triamcinolone acetonide 0.1% Discontinued Reason: Doctor's Order 1 appl topical DAILY 15 days 30 grams 1RF L30.9 - Dermatitis, unspecified
--- OUTSIDE RECORDS SUMMARY | 2025-04-14 17:12 | XMS_ITS | Data Portability ---
Author Organization [place] - [facility], Allergy Address [address] [place] [id number] Care Team Providers Care Business Office Coordinator Name Role Phone NGOCLORENZO CROWLEY Referring Provider [...] and Address Organization Details Recorded Time Dysphonia [id number] Active 2015 Hoarsenes s; Note: Date Diagnosed : 03/18/2016 2:56 PM (R49.0) Not Available [facility] 4 02:44:16 Foreign body in left ear [id number] Active 2018 Foreign body in left ear, initial encounter ; Note: Date Diagnosed : 9 1:46 PM (T16.2XXA ) Not Available [facility] 4 02:44:17 Follow-up visit Active 2016 Medical surveilla nce following completed treatment ; Note: Date Diagnosed : 01/08/2017 1:44 PM (Z09) Not Available [facility] 4 02:44:21 Polyp of vocal cord or larynx 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 2015 Polyp of vocal cord and larynx; Note: Date Diagnosed : 03/18/2016 2:56 PM (J38.1) Not Available [facility] 4 02:44:17 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 Procedures Surgical History Date Name Laterality Status Provider Name and Address Organization Details Recorded Time 02/14/2025 NasalEndos copy_DP completed OSWALDO GONZALEZ MD [address] [facility],[place] [address], [place], [address], [facility] - [facility] 02/14/2025 14:46:15 Imaging Results None recorded. Procedure Notes None recorded. Medical Equipment None Reported. Allergies Allergen ID Allergen Name Allergen Category Reaction Reaction Severity Criticality Documentation Date Start Date Code Code System Note Provider Name and Address Organization Details Recorded Time 229702 Bactrim medicatio n Not available Not available Not available 02/14/2025 14211 9 RxNorm Ginnette Rancitell i null, [place] - [facility] 14:18:15 501763 Reglan medicatio n Not available Not available Not available 02/14/2025 9230 RxNorm Ginnette Rancitell i null, [place] - [facility] 14:20:38 494451 dicyclomi ne medicatio n Not available Not available Not available 02/14/2025 3361 RxNorm Ginnette Rancitell i null, [place] - [facility] 14:21:11 408284 amitripty line medicatio n Not available Not available Not available 02/14/2025 704 RxNorm Ginnette Rancitell i null, [place] - [facility] 14:21:21 [id number] latex environme nt,medica tion Not available Not available Not available 02/14/2025 84712 91 RxNorm Ginnette Rancitell i null, [place] - [facility] 5 14:21:33 [id number] naproxen medicatio n Not available Not available Not available 02/14/2025 7258 RxNorm Ginnette Rancitell i null, [place] - [facility] 5 14:21:48 424144 hydrocodo ne Not available Not available Not available Not available 02/14/2025 5489 RxNorm Ginnette Rancitell i null, [place] - [facility] 5 14:22:02 323487 tramadol medicatio n Not available Not available Not available 02/14/2025 83632 RxNorm Ginnette Rancitell i null, [place] - [facility] 5 14:22:11 65845 ibuprofen medicatio n other Not available Not available 03/16/2024 5640 RxNorm React ion: unkno wn, unspe cifie d;; Not Available [facility] 4 00:58:51 44504 diphenhyd ramine hydrochlo ride medicatio n other Not available Not available 03/16/2024 1362 RxNorm React ion: unkno wn, unspe cifie d;; Not Available [facility] 4 00:58:52 07413 promethaz ine hydrochlo ride medicatio n other Not available Not available 03/16/2024 46951 5 RxNorm React ion: unkno wn, unspe cifie d;; Not Available [facility] 4 00:59:01 36555 Substance with sulfonami de structure and antibacte rial mechanism of action (substanc e) medicatio n other Not available Not available 03/16/2024 31670 8003 SNOMED React ion: unkno wn, unspe cifie d;; Not Available [facility] 4 00:59:03 Medications Name Sig Start Date [...] mg tablet 2015 active Medicatio n ID: [id number] Du ration Value: 30 Brand Name: metformin [...] release 24 hr active Medicatio n ID: [id number] Du ration Value: 90 Brand Name: glipizide Send Method: E-Prescri bed Subs Allowed: subs OK Medica tionGener icName: glipizide Not Available Not Available Not Available prednisone 20 mg tablet TAKE 1 TABLET BY MOUTH EVERY DAY FOR 7 DAYS active Not Available Not Available No t Available lovastatin 40 mg tablet 2015 active Medicatio n ID: [id number] Du ration Value: 30 Brand Name: lovastati [...] ayed release 2015 active Medicatio n ID: [id number] Du ration Value: 30 Brand Name: aspirin [...] 50 mg tablet active Medicatio n ID: [id number] Du ration Value: 90 Brand Name: pyridoxin e (vitamin B6) Send Method: E-Prescri bed Subs Allowed: subs OK Medica tionGener icName: pyridoxin e (vitamin B6) Not Available Not Available Not Available omeprazole 20 mg capsule,de layed release 2015 active Medicatio n ID: [id number] Du ration Value: 30 Brand Name: omeprazol e Send Method: E-Prescri bed Subs Allowed: subs OK Medica tionGener icName: omeprazol e Not Available Not Available Not Available folic acid 1 mg tablet TAKE 1 TABLET BY MOUTH DAILY active Not Available Not Available No t Available alcohol swabs 2015 active Medicatio n ID: [id number] Du ration Value: 50 Brand Name: alcohol swabs Sen d Method: E-Prescri bed Subs Allowed: subs [place] [facility] swabs Not Available Not Available [...] gram/dose oral powder active Medicatio n ID: [id number] Du ration Value: 21 Brand Name: Purelax [...] Updated DateTime 02/14/2025 162.56 cm 25.9 kg/m2 16631.45 g Eduardo Kapadia [place] - [facility] 02/14/2025 14:13:11 Social History None recorded. 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 I gave reassuranc e. Nasal vestibulitis [id number] 000 J34.89 She is actually pointing to [...] [place] Member ID Guarantor Name 02/24/2025 1 [facility] - DOS ON OR AFTER 2023 - MEDICARE ADVANTAGE [place] (MEDICARE REPLACEMENT/ADV ANTAGE - PPO) Roslyn Navarrete [id number] Roslyn Joslyn Rosalba Notes Date Note Type [...] Dr. Nicole in 2016. OSWALDO GONZALEZ MD [address] [place] [address], [phone], [facility] - [facility] 02/14/2025 14:53:09 OBGyn Episode No OBEpisode recorded.
== END 2025-04-14 15:23 | disposition home or self-care (01) ==
LOC: HO.HMCH 14:37
PROVIDERS: PCP Physician Assistant; Visit Provider Physician Assistant
DX: L20.82 Flexural eczema (principal); Z88.9 Allergy status to unspecified drugs, medicaments and biological substances; E11.65 Type 2 diabetes mellitus with hyperglycemia; I10 Essential (primary) hypertension; E78.2 Mixed hyperlipidemia

== ENCOUNTER → 2025-04-14 14:36 | Outpatient (BNVA) | payer OTHER, SELFPAY | PROVIDERS: PCP Physician Assistant; Visit Provider Physician Assistant | DX: E11.65 Type 2 diabetes mellitus with hyperglycemia (principal); M17.0 Bilateral primary osteoarthritis of knee; I10 Essential (primary) hypertension; L20.82 Flexural eczema; E78.2 Mixed hyperlipidemia; Z88.9 Allergy status to unspecified drugs, medicaments and biological substances; Z79.84 Long term (current) use of oral hypoglycemic drugs; L30.9 Dermatitis, unspecified | CPT/HCPCS: 96127; 99212 ==

== ENCOUNTER 2025-05-20 08:47 | Outpatient (AMB) | payer OTHER, SELFPAY ==
--- NOTE | 2025-05-20 08:49 | MHC.OFFVIS ---
Vital Signs 05/20/25 08:57 Height 5 ft 4 in Weight 152 lb 8.958 oz BMI 26.2 BP 115/70 Blood Pressure Location Rt brachial Position Sitting Pulse 84 Pulse Source Pulse Oximeter Pulse Oximetry (%) 97 Oxygen Delivery Method Room Air Intake Visit Reasons: RA Intake Note: Patient presents for RA follow up. Allergies etanercept (From Enbrel) Allergy (Intermediate, Verified 05/20/25 08:51) Rash cetirizine Allergy (Mild, Verified 05/20/25 08:51) Hives dicyclomine (From BENTYL) Allergy (Unknown, Verified 05/20/25 08:51) HIVES hydrocodone (HYDROCODONE) Allergy (Unknown, Verified 05/20/25 08:51) UNKNOWN ibuprofen (From MOTRIN) Allergy (Unknown, Verified 05/20/25 08:51) HIVES Iodinated Contrast Media (IV CONTRAST) Allergy (Unknown, Verified 05/20/25 08:51) ITCHING minocycline (MINOCYCLINE) Allergy (Unknown, Verified 05/20/25 08:51) UNK morphine (MORPHINE) Allergy (Unknown, Verified 05/20/25 08:51) UNKNOWN naproxen (NAPROXEN) Allergy (Unknown, Verified 05/20/25 08:51) UNKOWN peanut (PEANUT) Allergy (Unknown, Verified 05/20/25 08:51) HIVES sulfamethoxazole (From BACTRIM) Allergy (Unknown, Verified 05/20/25 08:51) UNKNOWN tramadol (TRAMADOL) Allergy (Unknown, Verified 05/20/25 08:51) UNK trimethoprim (From BACTRIM) Allergy (Unknown, Verified 05/20/25 08:51) UNKNOWN lisinopril Allergy (Verified 05/20/25 08:51) Abdominal Pain methotrexate Allergy (Verified 05/20/25 08:51) Joint Pain metronidazole (From Flagyl) Allergy (Verified 05/20/25 08:51) Hives glipizide Adverse Reaction (Intermediate, Verified 05/20/25 08:51) neuropathy amitriptyline (AMITRIPTYLINE) Adverse Reaction (Mild, Verified 05/20/25 08:51) HYPER metoclopramide (From REGLAN) Adverse Reaction (Mild, Verified 05/20/25 08:51) HYPER latex (LATEX) Adverse Reaction (Unknown, Verified 05/20/25 08:51) RASH phenylephrine (PHENYLEPHRINE) Adverse Reaction (Unknown, Verified 05/20/25 08:51) UNKNOWN promethazine (From PHENERGAN) Adverse Reaction (Unknown, Verified 05/20/25 08:51) UNK glipizide Allergy (Mild, Uncoded 04/14/25 15:00) Rash SHELLFISH Allergy (Unknown, Uncoded 04/14/25 15:00) HIVES Medication List - Last Reconciled 05/20/25 by Sarah Aldrich MD acetaminophen-codeine 300-30 mg 1 tab PO BID PRN atorvastatin 40 mg PO DAILY blood pressure monitor As directed blood sugar diagnostic (FreeStyle Test strips) As directed blood-glucose meter (FreeStyle [place] Lite kit) As directed diphenhydramine HCl (Allergy (diphenhydramine)) 50 mg (2 x 25 mg) PO DIRECTED lancets (FreeStyle Lancets) As directed leflunomide 20 mg PO DAILY losartan 50 mg PO DAILY 90 days metformin ER 500 mg PO BID 90 days mometasone 0.1% 1 appl topical DAILY 30 days polyethylene glycol 3350 (HealthyLax) 17 grams PO DAILY PRN rabeprazole 20 mg PO DAILY sucralfate 1 g PO BID tirzepatide (Mounjaro) 2.5 mg (0.5 mL) subcut QWEEK 4 weeks kriss (Ultra-Light Rollator misc) As directed HPI Comments Details: Patient is a 69-year-old female with diabetes, hypertension, hyperlipidemia and seronegative rheumatoid arthritis here today for an urgent visit. Interval History: Patient last seen 11/30/24 with me. - Had another allergic reaction to Humira - stopped medication - Started leflunomide - Recommended follow up with Allergy due to her various allergies Today, - Doing better on leflunomide - Concerned about the interaction btw her statin and leflunomide - followed with allergy and started xyzal Rheumatologic History: -ve RF -ve CCP dx 09/2024 MTX started 09/2024 DC 11/2024 ineffective Enbrel 11/2024. Allergic reaction (rash) Humira 12/2024-01/2025. Allergic reaction (rash) Current Rheumatology Medication(s): Leflunomide 20mg daily [facility] Medical History (Updated 04/14/25 @ 15:14 by Celso Mathur PA-C) HTN (hypertension) Migraine GERD (gastroesophageal reflux disease) Diabetes Surgical History Hx of colonoscopy History of esophagogastroduodenoscopy (EGD) S/P carpal tunnel release Family History Maternal Grandmother Colon cancer Brother History of heart disease Social History Housing: Apartment Alcohol intake: never Patient Tobacco Use Status: Never used Tobacco e-Cigarette/Vaping Use: Never Used Second Hand Smoke Exposure: No Advance Directives Date on File: 04/25/23 service: No Current occupational status: disabled Cognitive needs: No Hearing needs: No Vision needs: No Review of Systems Const Details: Review of Systems Constitutional: Denies fever, chills, weight loss ENT: Denies vision changes, eye pain or eye redness, dental caries, dry mouth GI: Denies nausea, vomiting, diarrhea, abdominal pain, change in BM Pulm: Denies SOB, LEVINE, hemoptysis, wheezing Cards: Denies chest pain, palpitations Skin: Denies Raynaud's, rash, nail changes, photosensitivity, ELECTRICAL CONTACTS ADJUSTER: Denies headaches, weakness, paresthesias, recurrent falls MSK: as per HPI All other systems reviewed and are unremarkable except noted above Physical Exam Vital Signs: Last Vital Signs Pulse 84 05/20/25 08:57 BP 115/70 05/20/25 08:57 Pulse Ox 97 05/20/25 08:57 Oxygen Delivery Method Room Air 05/20/25 08:57 BMI result Body Mass Index 26.2 Vital signs reviewed Physical Examination CONSTITUITIONAL Patient alert and cooperative. Well appearing and in no apparent painful distress HEENT Conjunctiva and sclera clear. ?Pupils equal round and reactive to light. ?No lymphadenopathy. ? CHEST/RESPIRATORY SYSTEM Normal respiratory effort and able to speak in complete sentences. ?Clear to auscultation bilaterally. ?No crackles, rales, rhonchi, wheezes heard. CARDIAC SYSTEM Regular rate and rhythm. ?S1 and S2 heard no murmurs. ?Radial pulses intact bilaterally MSK Hands: ?Good work ticket distributor strength bilaterally. No deformities noted. ?No tenderness to palpation of the MCPs or PIPs. Wrists: ?Full range of motion at the wrists without pain. ?No tenderness to palpation or synovitis noted to the wrists. Elbows: Full range of motion without pain. No tenderness, weakness, swelling, increased warmth or erythema. Shoulders: Full range of motion without pain. No tenderness, weakness, swelling, increased warmth or erythema. Hip bursa: No tenderness to palpation Knees: ?Full range of motion. ?No tenderness, swelling, increased warmth or erythema.?No effusion or crepitations Ankles: Full range of motion. ?No tenderness, swelling, increased warmth or erythema.? Feet: ?Negative squeeze test. ?No tenderness to palpation or swelling of the MTPs. Tender points:?No tenderness to palpation of the bilateral trapezius, supraspinatus, greater trochanters, anterior costochondral junctions, bilateral gluteal areas, bilateral suboccipital muscle insertions SKIN Rash improved Results Reviewed Results Reviewed: Laboratory Tests 01/13/25 04/13/25 14:23 08:12 WBC 5.6 RBC 4.23 Hgb 11.6 L Hct 35.7 L Plt Count 224 ESR 16 Sodium 141 Potassium 4.0 Chloride 106 Carbon Dioxide 27 BUN 18 H Creatinine 0.89 AST 24 ALT 17 C-Reactive Protein 0.18 Assessment & Plan Assessment & Plan (1) Seronegative rheumatoid arthritis: Comment: -ve RF -ve CCP dx 09/2024 MTX started 09/2024 DC 11/2024 ineffective Enbrel 11/2024 allergic reaction after 2 doses Humira 11/2024 - 01/2025. Allergic reaction. Rash Leflunomide 01/2025 Code(s): M06.00 - Rheumatoid arthritis without rheumatoid factor, unspecified site Category: Medical Plan: #Seronegative RA Patient is a 69-year-old female with seronegative rheumatoid arthritis currently in remission on leflunomide Reviewed leflunomide and atorvastatin interaction, and herve noted that leflunomide can increase the availabilty atorvastatin. Discussed this with the patient that this could lead to increased risk of side effects from the atorvastatin. Recommended that she discuss this with her primary potentially go to a lower dose of the statin Plan - Continue leflunomide 20mg daily - RTC 4 months - Labs before next visit: CBC, CMP, ESR, CRP (2) Encounter for monitoring leflunomide therapy: Code(s): Z51.81 - Encounter for therapeutic drug level monitoring; Z79.69 - director long term care (current) use of other immunomodulators and immunosuppressants Plan: #Long-term leflunomide Discussed with patient the benefits and risks of leflunomide for managing the rheumatic condition Benefits include: - Reduced pain, maintenance of remission and reduction of flares Risks include: - GI upset especially diarrhea, skin rash, cytopenias, hepatotoxicity, weight loss, neuropathy Leflunomide is highly teratogenic. ?Has a very long half-life. ?Needs cholestyramine washout if there is desire for Initiation: ?CBC, BMP, LFTs, hepatitis-B and C serologies every 2-4 weeks for 3 months Monitoring: ?CBC, BMP, LFTs, hepatitis B and C serologies Plan I spent 30 minutes reviewing the record and labs, taking a history, examining the patient, discussing the treatment plan and documenting in the medical record Orders: Orders C Reactive Protein 4 Months M06.00 - Rheumatoid arthritis without rheumatoid factor, unspecified site Erythrocyte Sedimentation Rate 4 Months M06.00 - Rheumatoid arthritis without rheumatoid factor, unspecified site Complete Blood Count Auto Diff 4 Months M06.00 - Rheumatoid arthritis without rheumatoid factor, unspecified site Comprehensive Met. Panel 4 Months M06.00 - Rheumatoid arthritis without rheumatoid factor, unspecified site Coding Level of Care Code Est Pt Level 4 (44533) Complex EM visit Add On G2211 Diagnoses Seronegative rheumatoid arthritis M06.00 Encounter for monitoring leflunomide therapy Z51.81; Z79.69
--- OUTSIDE RECORDS SUMMARY | 2025-05-20 08:51 | XMS_ITS | Clinical Summary ---
Author Organization [facility] [address] [facility] Address [address] [place] [address] Phone Care Team Providers Care Etl Software Engineer Name Role Phone Celso Mathur Primary Care Provider [phone] Allergies Active Allergy Reactions Criticality Noted Date Comments Amitriptyline 08/09/2020 [place] hyper Dicyclomine Hives,Rash 07/14/2014 Dicyclomine Hydrocodone-Acetaminophen Hives [...] 1 (one) time each day. 4 Active LayerBoomTouch Ultra Test test strip USE TO TEST [...] diabetes mellitus wit h renal complication ([facility]/HCC V24, [facility]/HCC V28) 09/20/2024 COVID-19 virus infection 01/31/2021 Overview (09/20/2024): 11/2020 per patient Abnormal mammogram of left breast 12/26/2020 Overview (09/20/2024): 12/2020, ordering diagnostic mammo and u/s Anxiety 08/09/2020 Aortic atherosclerosis ([facility] [place]24) 08/09/2020 Carpal tunnel syndrome 08/09/2020 Overview (09/20/2024): Bilateral, 05/2019 Left CTR Cataract 08/09/2020 Overview (09/20/2024): Bilateral Cholelithiasis 08/09/2020 Diabetic neuropathy ([facility] [place]24, [facility] V28) 1 Overview (09/20/2024): Feet Glaucoma suspect 08/09/2020 Overview (09/20/2024): Left eye Hypertension 08/09/2020 Lactose intolerance 08/09/2020 Microalbuminuria 08/09/2020 Migraines 08/09/2020 Overview (09/20/2024): episodic Nephrolithiasis 08/09/2020 Seasonal allergies 08/09/2020 Slow transit constipation 08/09/2020 Type 2 diabetes mellitus wit h cataract ([facility] [place]24, [facility] V28) 08/09/2020 Type 2 diabetes mellitus wit h neurologic complication ([facility] [place]24, [facility] V28) 08/09/2020 Immunizations Name Administration Dates Next Due Pneumococcal conjugate 13 va lent (Prevnar 13, PCV13) 2mo and older 09/17/2019 Pneumococcal polysaccharide 23 valent (Pneumovax 23) 2yo and older 01/01/2016 Surgical History Surgery Date Site/Laterality Comments KIDNEY STONE SURGERY 04/2014 PROCEDURE: IN NEPHROLITHOTOMY REMOVAL CALCULUS; COMMENT: x 3 TUBAL LIGATION PROCEDURE: HISTORICAL TUBAL LIGATION COLONOSCOPY 04/26/2011 PROCEDURE: HISTORICAL COLONOSCOPY; COMMENT: Diverticulosis, Repeat 10 yrs UPPER GASTROINTESTINAL ENDOSCOPY 09/24/2002 PROCEDURE: IN UPPER GI ENDOSCOPY PERFORMED; COMMENT: hiatal hernia, mod retained bile suggestive of decreased gastric emptying UPPER GASTROINTESTINAL ENDOSCOPY 05/20/2012 PROCEDURE: IN UPPER GI ENDOSCOPY PERFORMED; COMMENT: Reactive gastropathy OTHER SURGICAL HISTORY 07/23/2016 PROCEDURE: HISTORY OTHER; COMMENT: vocal cord polyps removed, Dr Altaf Nicole CARPAL TUNNEL RELEASE 05/2019 Left PROCEDURE: HISTORICAL CARPAL TUNNEL REL UPPER GASTROINTESTINAL ENDOSCOPY 11/05/2018 PROCEDURE: IN UPPER GI ENDOSCOPY PERFORMED; COMMENT: Functional dyspepsia Medical History Medical History Date Comments Hyperlipidemia DX:Hyperlipidemi a GERD (gastroesophageal reflux disease) DX:GERD (gastroesophageal reflux disease) 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 ([facility] [place]24, [facility] V28) DX:Type 2 diabetes mellitus with renal complication (HCC) Microalbuminuria 08/09/2020 DX:Microalbumin uria Nephrolithiasis 08/09/2020 DX:Nephrolithias is Anxiety 08/09/2020 DX:Anxiety Lactose intolerance 08/09/2020 DX:Lactose i ntolerance Cholelithiasis 08/09/2020 DX:Cholelithiasi s Diabetic neuropathy ([facility] [place]24, [facility] V28) 08/09/2020 DX:Diabetic neuropathy ([facility]) ; COMMENT: Feet Type 2 diabetes mellitus wit h neurologic complication ([facility] [place]24, [facility] V28) 08/09/2020 DX:Type 2 diabetes mellitus with neurologic complication (HCC) Seasonal allergies 08/09/2020 DX:Seasonal a llergies Slow transit constipation 08/09/2020 DX:Slo w transit constipation Aortic atherosclerosis ([facility] V24) 08/09/2020 DX:Aortic atherosclerosis (HCC) Cataract 08/09/2020 DX:Cataract; COM MENT: Bilateral Type 2 diabetes mellitus wit h cataract ([facility] [place]24, [facility] V28) 08/09/2020 DX:Type 2 diabetes mellitus with [...] care for your loved ones. For example, children's book author or elderly care for an older adult? [...] PCV21) 09/17/2024 09/17/2019, 09/17/2019, 01/01/2016 COVID-19 Vaccine ( - season) 2025 07/04/2024, 11/06/2023, 09/12/2022, Additional history exists Influenza Vaccine (#1) 2025 , 07/25/2023, 07/02/2022, Additional history exists Cholesterol Screening (Lipid Panel) 07/28/2025 07/28/2020 Depression Screening 10/04/2025 10/04/2024 Social Influencers of Health Screening 10/04/2025 10/04/2024 DTaP,Tdap,and Td Vaccines (4 - Td or Tdap) 11/04/2031 11/04/2021, 04/25/2013, 01/18/2008 HIB Vaccines Aged Out No longer eligi [...] Ratio (10/30/2020) Urine Albumin Creatinine Ratio Abstracted [facility] Provider HEALTH MAINTENANCE Final Result * Annual BMP Blood Test (10/30/2020) Pathologist [facility] Annual BMP Blood Test Abstracted [facility] Provider HEALTH MAINTENANCE Final Result * (ABNORMAL) Hemoglobin A1c (10/30/2020) [facility] Hemoglobin A1C 7.6(A) <=6.5 % Blood Venous blood specimen / Unknown [facility] Provider LAB BLOOD ORDERABLES Grace l Result * Lipid panel (07/28/2020) [facility] LDL/HDL Ratio 3 0 - 4 Triglycerides 123 0 - 150 mg/dL Cholesterol 135 0 - 200 mg/dL HDL 50 >=40 mg/dL LDL Cholesterol 61 0 - 100 mg/dL Blood Venous blood specimen / Unknown Result [facility] Provider LAB BLOOD ORDERABLES Grace l Result from Last 3 Months or Most Recently Relevant to Health Maintenance Insurance [facility] Member Subscriber Plan / Payer ( fective 2019-Present) Name:Roslyn Navarrete Relation to Subscriber:Self Name:Roslyn Navarrete Payer ID:[id number] Group ID:[id number] Type:Not on file Address: [place] [address] [place] [phone] [facility] MEDICARE Member Subscriber Plan / Payer ( fective 2019-Present) Name:Roslyn Navarrete Relation to Subscriber:Self Name:Roslyn Navarrete Payer ID:[id number] Group ID:[id number] Type:Not on file Address: [place] [address] [phone] Care Teams Etl Software Engineer Relationship Specialty Start Date End Date Celso Mathur PA PCP - General Physician Wharf Tender 09/17/24
--- OUTSIDE RECORDS SUMMARY | 2025-05-20 08:51 | XMS_ITS | Data Portability ---
Author Organization [place] [facility], Allergy Address [address] [place] [id number] Care Team Providers Care Low Pressure Kettle Operator Name Role Phone LORENZO GROSSMAN Referring Provider [phone] Assessment No assessment recorded. Plan of Treatment [...] and Address Organization Details Recorded Time Dysphonia [id number] Active 2015 [place]ars[place] s; Note: Date Diagnosed : 03/18/2016 2:56 PM (R49.0) Not Available [facility] 4 02:44:16 Polyp of vocal cord or larynx 956866806 Active 2015 Polyp of vocal cord and larynx; Note: Date Diagnosed : 03/18/2016 2:56 PM (J38.1) Not Available [facility] 4 02:44:17 Follow-up visit Active 2016 Medical surveilla nce following completed treatment ; Note: Date Diagnosed : 01/08/2017 1:44 PM (Z09) Not Available [facility] 4 02:44:21 Foreign body in left ear [id number] 498832 Active 2018 Foreign body in left ear, initial encounter ; Note: Date Diagnosed : 9 1:46 PM (T16.2XXA ) Not Available [facility] 4 02:44:17 Polyp of nasal cavity and/or nasal sinus 017461298 Active 2024 OSWALDO GONZALEZ MD [address] [facility],[place] [address], [place], [address] , [place] [facility] 14:46:12 Nasal vestibuli tis 84997038 Active 2024 OSWALDO GONZALEZ MD [address] [address], [place], [address] , [facility] - [facility] 14:52:34 Problem Notes None recorded. Procedures Surgical History Date Name Laterality Status Provider Name and Address Organization Details Recorded Time 02/14/2025 NasalEndos copy_DP completed SOWALDO GONZALEZ MD [address] [facility],[place] [address], [place], [address], [place] [facility] 02/14/2025 14:46:15 Imaging Results None recorded. Procedure Notes None recorded. Medical Equipment None Reported. Allergies Allergen ID Allergen Name Allergen Category Reaction Reaction Severity Criticality Documentation Date Start Date Code Code System Note Provider Name and Address Organization Details Recorded Time 184006 Bactrim medicatio n Not available Not available Not available 02/14/2025 37692 9 RxNorm Ginnette Rancitell i null, [place] [facility] 14:18:15 620131 Reglan medicatio n Not available Not available Not available 02/14/2025 9230 RxNorm Ginnette Rancitell i issac, [place] [facility] 14:20:38 997874 dicyclomi ne medicatio n Not available Not available Not available 02/14/2025 3361 RxNorm Ginnette Rancitell i null, [place] [facility] 14:21:11 786244 amitripty line medicatio n Not available Not available Not available 02/14/2025 704 RxNorm Ginnette Rancitell i null, [place] [facility] 14:21:21 553237 latex environme nt,medica tion Not available Not available Not available 02/14/2025 24231 91 RxNorm Ginnette Rancitell i null, [place] - [facility] 5 14:21:33 134028 naproxen medicatio n Not available Not available Not available 02/14/2025 7258 RxNorm Ginnette Rancitell i null, [place] [facility] 5 14:21:48 503986 hydrocodo ne Not available Not available Not available Not available 02/14/2025 5489 RxNorm Ginnette Rancitell i null, [place] [facility] 5 14:22:02 478419 tramadol medicatio n Not available Not available Not available 02/14/2025 26840 RxNorm Ginnette Rancitell i null, [place] [facility] 5 14:22:11 80664 ibuprofen medicatio n other Not available Not available 03/16/2024 5640 RxNorm React ion: unkno wn, unspe cifie d;; Not Available [facility] 4 00:58:51 30458 diphenhyd ramine hydrochlo ride medicatio n other Not available Not available 03/16/2024 1362 RxNorm React ion: unkno wn, unspe cifie d;; Not Available [facility] 4 00:58:52 08135 promethaz ine hydrochlo ride medicatio n other Not available Not available 03/16/2024 40743 5 RxNorm React ion: unkno wn, unspe cifie d;; Not Available [facility] 4 00:59:01 82235 Substance with sulfonami de structure and antibacte rial mechanism of action (substanc e) medicatio n other Not available Not available 03/16/2024 94523 8003 SNOMED React ion: unkno wn, unspe cifie d;; Not Available [facility] 4 00:59:03 Medications Name Sig Start Date [...] mg tablet 2015 active Medicatio n ID: [id number] Du ration Value: 30 Brand Name: metformin [...] release 24 hr active Medicatio n ID: [id number] Du ration Value: 90 Brand Name: glipizide Send Method: E-Prescri bed Subs Allowed: subs OK Medica tionGener icName: glipizide Not Available Not Available Not Available prednisone 20 mg tablet TAKE 1 TABLET BY MOUTH EVERY DAY FOR 7 DAYS active Not Available Not Available No t Available lovastatin 40 mg tablet 2015 active Medicatio n ID: [id number] Du ration Value: 30 Brand Name: lovastati [...] ayed release 2015 active Medicatio n ID: [id number] Du ration Value: 30 Brand Name: aspirin [...] 50 mg tablet active Medicatio n ID: [id number] Du ration Value: 90 Brand Name: pyridoxin e (vitamin B6) Send Method: E-Prescri bed Subs Allowed: subs OK Medica tionGener icName: pyridoxin e (vitamin B6) Not Available Not Available Not Available omeprazole 20 mg capsule,de layed release 2015 active Medicatio n ID: [id number] Du ration Value: 30 Brand Name: omeprazol e Send Method: E-Prescri bed Subs Allowed: subs OK Medica tionGener icName: omeprazol e Not Available Not Available Not Available folic acid 1 mg tablet TAKE 1 TABLET BY MOUTH DAILY active Not Available Not Available No t Available alcohol swabs 2015 active Medicatio n ID: [id number] Du ration Value: 50 Brand Name: alcohol swabs Sen d Method: E-Prescri bed Subs Allowed: subs OK Medica tionGener icName: alcohol swabs Not Available Not Available [...] gram/dose oral powder active Medicatio n ID: [id number] Du ration Value: 21 Brand Name: Purelax [...] Updated DateTime 02/14/2025 162.56 cm 25.9 kg/m2 23048.45 g Eduardo Kapadia [place] [facility] 02/14/2025 14:13:11 Social History None recorded. Functional Status None recorded. Mental Status None recorded. Family History Nothing Reported. Medical History Condition Response Arthritis Y Migraines Y Depression Y Hypertension Y Gynecological HistoryNo gynecological history recorded. Obstetrics History GPAL:G 0 P 0 0 0 0 Past Encounters Encounter ID Performer Location Encounter Start Date Encounter Closed Date Diagnosis/Indication Diagnosis SNOMED-CT Code Diagnosis ICD10 Code Diagnosis Note [id number] OSWALDO GONZALEZ MD [facility] on [address] [place] [phone] 02/14/2025 13:35:28 02/14/2025 16:52:34 Polyp of nasal cavity and/or nasal sinus 793661351 J33.9 Exam and nasal endoscopy were negative for polyps. I gave reassuranc e. Nasal vestibulitis 31850 000 J34.89 She is actually pointing to [...] [place] Member ID Guarantor Name 02/24/2025 1 [facility] - DOS ON OR AFTER 2023 - MEDICARE ADVANTAGE [place] (MEDICARE REPLACEMENT/ADV ANTAGE - PPO) Roslyn Zuñigaivan [id number] Roslyn Joslyn Rosalba Notes Date Note Type [...] Dr. Nicole in 2016. OSWALDO GONZALEZ MD [address] [place] [address], [phone], [facility] - [facility] 02/14/2025 14:53:09 OBGyn Episode No OBEpisode recorded.
--- OUTSIDE RECORDS SUMMARY | 2025-05-20 08:51 | XMS_ITS | Clinical Summary ---
Author Organization [facility] Address [address] [place] [address] Phone Care Team Providers Care Lace Paper Machine Operator Name Role Phone Celso Mathur Primary Care Provider + Medications metFORMIN (GLUCOPHAGE) 500 MG tablet Take 1,000 mg by mouth daily with breakfast. 01/10/2024 Active levocetirizine (XYZAL) 5 MG tablet Take 1 tablet by mouth every morning. 03/21/2025 Active atorvastatin (LIPITOR) 40 MG tablet Take 40 mg by mouth daily. Active RABEprazole (ACIPHEX) 20 mg tablet Take 20 mg by mouth daily. Active leflunomide (ARAVA) 20 MG tablet Take 20 mg by mouth daily. Active losartan (COZAAR) 25 MG tablet Take 25 mg by mouth daily. Active tirzepatide (MOUNJARO) 2.5 mg/0.5 mL PnIj subcutaneous pen Inject 2.5 mg under the skin once a week. Active Encounters Date Type Department Care Team Description 05/03/2025 2:53 PM EDT - 05/03/2025 11:59 PM EDT Hospital Encounter [facility] Phlebotomy, [facility] [address] [place] [address] Elena Harmon MD Discharge Disposition: Home or Self Care 05/03/2025 1:40 PM EDT Office Visit [facility] Allergy, [facility] [address] [place] [address] Elena Harmon MD Adverse effect of drug, initial encounter (Primary Dx) 04/14/2025 Telephone [facility] Allergy Center at [address] [facility] [place] [address] Elena Harmon MD from Last 3 Months Social History Tobacco Use Types Packs/Day Years Used Date Smoking Tobacco: Never Assessed Education Answer Date Recorded Are you interested in more education? Not on leilani e 04/04/2025 Are you concerned about learning? Not on file 04/04/2025 No 04/04/2025 No 04/04/2025 Digital Access Answer Date Recorded No 04/04/2025 No 04/04/2025 Reliable internet access at home? Not on file 04/04/2025 Device with a working camera? Not on file Comments Unknown Sex and Gender Information Value Date Recorded Sex Assigned at Female 03/31/2025 10:26 AM EDT Legal Sex Female 10:17 AM EDT Gender Identity Female 03/31/2025 10:26 AM EDT Sexual Orientation Straight 03/31/2025 10 :26 AM EDT Last Filed Vital Signs Vital Sign Reading Time Taken Comments Blood Pressure 148/72 05/03/2025 1:46 PM EDT Pulse 93 05/03/2025 1:46 PM EDT Temperature 35.7 C (96.2 F) 05/03/2025 1:46 PM EDT Respiratory Rate - - Oxygen Saturation 97% 05/03/2025 1:46 PM EDT Inhaled Oxygen Concentration - - Weight 59.9 kg (132 lb) 05/03/2025 1:46 PM EDT Height 162.6 cm (5' 4 ) 05/03/2025 1:46 PM EDT Body Mass Index 22.66 05/03/2025 1:46 PM EDT Plan of Treatment Upcoming Encounters Date Type Department Care Team (Late st Contact Info) Description 07/28/2025 1:00 PM EDT Office Visit [facility] Allergy, [facility] [address] [place] [address] Elena Harmon MD [address] [address] [email or web address] 07/28/2025 3:40 PM EDT Office Visit [facility] Allergy, [facility] [address] [place] [address] Elena Harmon MD [address] [place] [phone] [email or web address] 08/11/2025 1:00 PM EDT Office Visit [facility] Allergy, [facility] [address] [place] [address] Elena Harmon MD [address] [place] [address] [email or web address] 08/11/2025 3:40 PM EDT Office Visit [facility] Allergy, [facility] [address] [place] [address] Elena Harmon MD [address] [place] [phone] [email or web address] 08/18/2025 1:00 PM EDT Office Visit [facility] Allergy, [facility] [address] [place] [address] Elena Harmon MD [address] [place] [phone] [email or web address] 08/18/2025 4:00 PM EDT Office Visit [facility] Allergy, [facility] [address] [place] [address] Elena Harmon MD [address] [place] [phone] [email or web address] Health Maintenance Due Date Last Done Comments CREATININE LEVEL 1954 POTASSIUM LEVEL 1954 DEPRESSION SCREENING 1966 SMOKING Hx and SMOKELESS TOBACCO SCREENING 1967 HEPATITIS C SCREENING 1972 ZOSTER VACCINES (1 of 2) 1973 MAMMOGRAM 1994 COLOGUARD 1999 COLONOSCOPY 1999 COLORECTAL CANCER SCREENING 1999 FIT TEST 1999 FOBT 1999 SIGMOIDOSCOPY 1999 VIRTUAL COLONOSCOPY 1999 RSV VACCINE (1 - Risk 60-74 years 1-dose series) 2014 OSTEOPOROSIS SCREENING INITIAL (ONE-TIME) 2019 COVID-19 VACCINE ( season) 2025 07/04/2024, 11/06/2023, 09/12/2022, Additional history exists LIPID PANEL 07/28/2025 07/28/2020 Adult Td,Tdap Booster 11/04/2031 11/04/2021, 013 PNEUMOCOCCAL VACCINES (50+ years) Completed 09/17/2019, 09/17/2019, 01/01/2016 HEPATITIS A VACCINES Aged Out No long er eligible based on patient's age to complete this topic HIB VACCINES Aged Out No longer eligi ble based on patient's age to complete this topic MENINGOCOCCAL VACCINES (ACWY) Aged Out No longer eligible based on patient's age to complete this topic MENINGOCOCCAL VACCINES (B) Aged Out N o longer eligible based on patient's age to complete this topic Medical Devices Not on file Procedures Procedure Name Priority Date/Time Associated Diagnosis Comments TRYPTASE Routine 05/03/2025 3:05 PM EDT Adverse effect of drug, initial encounter from Last 3 Months Results * Tryptase (05/03/2025 3:05 PM EDT) Tryptase 5.5 0.1 - 11.5 ug/L [facility] Blood 05/03/2025 3:05 PM EDT 05/03/2025 3:33 PM EDT Elena Harmon MD LAB BLOOD ORDERABLES Final Result [facility] [address] [place] [address] from Last 3 Months Insurance [facility] MEDICARE REPLACEMENT [facility] [place] [id number] [place] [id number] [facility] MEDICARE REPLACEMENT Care Teams Lace Paper Machine Operator Relationship Specialty Start Date End Date Celso Mathur PA [facility] [place] [address] PCP - General Physician Geological Drafter 03/31/25 Additional Source Comments The information contained in this document represents components of the legal health record. It is not the complete legal health record.[facility]
[2025-05-20 08:57] VITALS: BP 115/70; PULSE 84; O2SAT 97; BMI 26.2
== END 2025-05-20 09:38 | disposition home or self-care (01) ==
LOC: HO.RHE 08:47
PROVIDERS: PCP Physician Assistant; Visit Provider Student in an Organized Health Care Education/Training Program
DX: M06.09 Rheumatoid arthritis without rheumatoid factor, multiple sites (principal); Z51.81 Encounter for therapeutic drug level monitoring; Z79.69 Long term (current) use of other immunomodulators and immunosuppressants
CPT/HCPCS: 99214; G2211

== ENCOUNTER → 2025-05-20 08:47 | Outpatient (BNVA) | payer OTHER, SELFPAY | PROVIDERS: PCP Physician Assistant; Visit Provider Student in an Organized Health Care Education/Training Program | DX: Z51.81 Encounter for therapeutic drug level monitoring (principal); Z79.69 Long term (current) use of other immunomodulators and immunosuppressants; M06.00 Rheumatoid arthritis without rheumatoid factor, unspecified site | CPT/HCPCS: 99212 ==

== ENCOUNTER 2025-06-14 13:22 | Outpatient (AMB) | payer OTHER, SELFPAY ==
--- NOTE | 2025-06-14 13:25 | A.OFFVIS_ITS ---
Vital Signs 06/14/25 13:29 Height 5 ft 4 in Weight 152 lb BMI 26.1 Intake Visit Reasons: OV- Bilateral knee pain last inj 03/08/25 Intake Note: Roslyn is a 69 year old female who presents with complaints of bilateral knee pains. She describes her pains as sharp in nature. She has had cortisone injections in the past which gave her fairly good relief. She has also tried physical therapy which aggravated her pain. She has tried Tylenol and anti- inflammatory medicines which gave her minimal relief. She wishes to hold off on surgery if at all possible. Allergies etanercept (From Enbrel) Allergy (Intermediate, Verified 06/14/25 13:29) Rash cetirizine Allergy (Mild, Verified 06/14/25 13:29) Hives dicyclomine (From BENTYL) Allergy (Unknown, Verified 06/14/25 13:29) HIVES hydrocodone (HYDROCODONE) Allergy (Unknown, Verified 06/14/25 13:29) UNKNOWN ibuprofen (From MOTRIN) Allergy (Unknown, Verified 06/14/25 13:29) HIVES Iodinated Contrast Media (IV CONTRAST) Allergy (Unknown, Verified 06/14/25 13:29) ITCHING minocycline (MINOCYCLINE) Allergy (Unknown, Verified 06/14/25 13:29) UNK morphine (MORPHINE) Allergy (Unknown, Verified 06/14/25 13:29) UNKNOWN naproxen (NAPROXEN) Allergy (Unknown, Verified 06/14/25 13:29) UNKOWN peanut (PEANUT) Allergy (Unknown, Verified 06/14/25 13:29) HIVES sulfamethoxazole (From BACTRIM) Allergy (Unknown, Verified 06/14/25 13:29) UNKNOWN tramadol (TRAMADOL) Allergy (Unknown, Verified 06/14/25 13:29) UNK trimethoprim (From BACTRIM) Allergy (Unknown, Verified 06/14/25 13:29) UNKNOWN lisinopril Allergy (Verified 06/14/25 13:29) Abdominal Pain methotrexate Allergy (Verified 06/14/25 13:29) Joint Pain metronidazole (From Flagyl) Allergy (Verified 06/14/25 13:29) Hives glipizide Adverse Reaction (Intermediate, Verified 06/14/25 13:29) neuropathy amitriptyline (AMITRIPTYLINE) Adverse Reaction (Mild, Verified 06/14/25 13:29) HYPER metoclopramide (From REGLAN) Adverse Reaction (Mild, Verified 06/14/25 13:29) HYPER latex (LATEX) Adverse Reaction (Unknown, Verified 06/14/25 13:29) RASH phenylephrine (PHENYLEPHRINE) Adverse Reaction (Unknown, Verified 06/14/25 13:29) UNKNOWN promethazine (From PHENERGAN) Adverse Reaction (Unknown, Verified 06/14/25 13:29) UNK glipizide Allergy (Mild, Uncoded 04/14/25 15:00) Rash SHELLFISH Allergy (Unknown, Uncoded 04/14/25 15:00) HIVES Medication List - Last Reconciled 06/14/25 by Kam Crowell MD acetaminophen-codeine 300-30 mg 1 tab PO BID PRN atorvastatin 40 mg PO DAILY blood pressure monitor As directed blood sugar diagnostic (FreeStyle Test strips) As directed blood-glucose meter (FreeStyle [place] Lite kit) As directed diphenhydramine HCl (Allergy (diphenhydramine)) 50 mg (2 x 25 mg) PO DIRECTED lancets (FreeStyle Lancets) As directed leflunomide 20 mg PO DAILY losartan 50 mg PO DAILY 90 days metformin ER 500 mg PO BID 90 days mometasone 0.1% 1 appl topical DAILY 30 days polyethylene glycol 3350 (HealthyLax) 17 grams PO DAILY PRN rabeprazole 20 mg PO DAILY sucralfate 1 g PO BID tirzepatide (Mounjaro) 2.5 mg (0.5 mL) subcut QWEEK 4 weeks kriss (Ultra-Light Rollator misc) As directed [facility] Medical History (Updated 04/14/25 @ 15:14 by Celso Mathur PA-C) HTN (hypertension) Migraine GERD (gastroesophageal reflux disease) Diabetes Surgical History Hx of colonoscopy History of esophagogastroduodenoscopy (EGD) S/P carpal tunnel release Family History Maternal Grandmother Colon cancer Brother History of heart disease Social History Housing: Apartment Alcohol intake: never Patient Tobacco Use Status: Never used Tobacco e-Cigarette/Vaping Use: Never Used Second Hand Smoke Exposure: No Advance Directives Date on File: 04/25/23 service: No Current occupational status: disabled Cognitive needs: No Hearing needs: No Vision needs: No Physical Exam Vital Signs: BMI result Body Mass Index 26.1 Const Other: Well-nourished well-developed very friendly female awake alert and oriented x3 in no acute distress Extrem Other: Bilateral lower extremity examination shows good capillary refill, no skin lesions noted, normal sensation light touch Bilateral knee examination shows minimal effusions, palpable crepitus with range of motion, pain with range of motion, no instability Office Procedures AMB Joint Injection/Aspiration Joint Injection/Aspiration Primary Site: left knee Prep: site was prepped using aseptic technique Injected: 40 mg of, DepoMedrol and 1% plain lidocaine Procedure: The patient tolerated the procedure well Coding 87476 - Large joint Procedure code (CPT) selection complete AMB Joint Injection/Aspiration Joint Injection/Aspiration Primary Site: right knee Prep: site was prepped using aseptic technique Injected: 40 mg of, DepoMedrol and 1% plain lidocaine Procedure: The patient tolerated the procedure well Coding 64427 - Large joint Procedure code (CPT) selection complete Assessment & Plan Assessment & Plan (1) Arthritis of left knee: Code(s): M17.12 - Unilateral primary osteoarthritis, left knee Category: Medical (2) Arthritis of right knee: Code(s): M17.11 - Unilateral primary osteoarthritis, right knee Category: Medical Plan Ms. Rosalba Willoughby presents with bilateral knee pains due to degenerative joint disease. The risks and benefits of bilateral knee cortisone injections were discussed at length with the patient. The patient wished to proceed. She tolerated the injections well. She will continue with her home exercise program. She will contact me prior to her follow-up appointment in 3 months should any questions or concerns arise. Feel free to call me at any time should questions regarding her orthopedic management arise. I spent 20 minutes in reviewing the patient's records and imaging studies, seeing the patient and documenting in the medical record. Orders: Orders AMB Joint Injection/Aspiration Today M17.12 - Unilateral primary osteoarthritis, left knee AMB Joint Injection/Aspiration Today M17.11 - Unilateral primary osteoarthritis, right knee Coding Level of Care Code Est Pt Level 3 (09034) Complex EM visit Add On G2211 Diagnoses Arthritis of left knee M17.12 Arthritis of right knee M17.11 CPT Codes Coding - 76454 Large joint: 33398 - Large joint ([id number]) Coding - 80966 Large joint: 31282 - Large joint ([id number])
[2025-06-14 13:29] VITALS: BMI 26.1
--- OUTSIDE RECORDS SUMMARY | 2025-06-14 14:13 | XMS_ITS | Clinical Summary ---
Author Organization [facility] Address [address] [place] [address] Phone Care Team Providers Care Seamless Hosiery Knitter Name Role Phone Celso Mathur Primary Care Provider + Allergies Active Allergy Reactions Criticality Noted Date Comments Sulfamethoxazole-Trimetho prim Hives 05/30/2025 Generalized hives and diarrhea 3 days into Bactrim course. Metronidazole Hives 05/30/2025 Iodinated Contrast Media Hives 05/30/2025 Tolerates with premedication protocol Lisinopril Cough 05/30/2025 Methotrexate Joint Pain Low 05/30/2025 Minocycline Itching 05/30/2025 Nsaids (Non-Steroidal Anti-Inflammatory Drug) Anaphylaxis High 05/30/2025 SOB, throat tightness, urticaria, syncope after taking Motrin. Urticaria with Naproxen. Tramadol Hives 05/30/2025 Medications metFORMIN (GLUCOPHAGE) 500 MG tablet Take [...] - 05/03/2025 11:59 PM EDT Hospital Encounter [facility] Phlebotomy, [facility] [address] [place] [address] Elena Harmon MD Discharge Disposition: Home or Self Care 05/03/2025 1:40 PM EDT Office Visit [facility] Allergy, [facility] [address] [place] [address] Elena Harmon MD Adverse effect of drug, initial encounter (Primary Dx); Anaphylaxis, initial encounter; Allergic dermatitis; Chronic urticaria 04/14/2025 Telephone [facility] Allergy Center at [address] [address] Elena Harmon MD from Last 3 Months [...] Description 07/28/2025 1:00 PM EDT Office Visit [facility] Allergy, [facility] [address] [place] [address] Elena Harmon MD [address] [address] [email or web address] 07/28/2025 3:40 PM EDT Office Visit [facility] Allergy [facility] [address] [place] [address] Elena Harmon MD [address] [address] [email or web address] 08/11/2025 1:00 PM EDT Office Visit [facility] Allergy [facility] [address] [place] [address] Elena Harmon MD [address] [address] [email or web address] 08/11/2025 3:40 PM EDT Office Visit [facility] Allergy [facility] [address] [place] [address] Elena Harmon MD [address] [address] [email or web address] 08/18/2025 1:00 PM EDT Office Visit [facility] Allergy, [facility] [address] [place] [address] Elena Harmon MD [address] [place] [address] [email or web address] 08/18/2025 4:00 PM EDT Office Visit [facility] Allergy, [facility] [address] [place] [address] Elena Harmon MD [address] [place] [address] [email or web address] Health Maintenance Due Date Last Done Comments [...] EDT) Tryptase 5.5 0.1 - 11.5 ug/L [facility] Blood 05/03/2025 3:05 PM EDT 05/03/2025 3:33 PM EDT us Elena Harmon MD LAB BLOOD ORDERABLES Final Result [facility] [address] [place] [address] from Last 3 Months Insurance [facility] MEDICARE REPLACEMENT [address] [place] [id number] [facility] MEDICARE REPLACEMENT [address] [place] [id number] [facility] MEDICARE REPLACEMENT [place] [place] [id number] [place] [id number] [facility] MEDICARE REPLACEMENT [facility] MEDICARE REPLACEMENT Care Teams Seamless Hosiery Knitter Relationship Specialty Start Date End Date Celso Mathur PA [address] [place] [address] PCP - General Physician Telesales Supervisor 03/31/25 Additional Source Comments The information contained in this document represents components of the legal health record. It is not the complete legal health record.[facility]
--- OUTSIDE RECORDS SUMMARY | 2025-06-14 14:13 | XMS_ITS | Clinical Summary ---
Author Organization [facility] [address] [facility] Address [address] [place] [address] Phone Care Team Providers Care Assistant Men'S Lacrosse Coach Name Role Phone Celso Mathur Primary Care Provider [phone] Allergies Active Allergy Reactions Criticality Noted Date Comments Amitriptyline 08/09/2020 [place] hyper Dicyclomine Hives,Rash 07/14/2014 Dicyclomine Hydrocodone-Acetaminophen Hives [...] 1 (one) time each day. 4 Active PeonutTouch Ultra Test test strip USE TO TEST [...] 2 diabetes mellitus wit h renal complication ([facility]/HCC V24, [facility]/HCC V28) 09/20/2024 COVID-19 virus infection 01/31/2021 Overview (09/20/2024): 11/2020 per patient Abnormal mammogram of left breast 12/26/2020 Overview (09/20/2024): 12/2020, ordering diagnostic mammo and u/s Anxiety 08/09/2020 Aortic atherosclerosis ([facility] V24) 08/09/2020 Carpal tunnel syndrome 08/09/2020 Overview (09/20/2024): Bilateral, 05/2019 Left CTR Cataract 08/09/2020 Overview (09/20/2024): Bilateral Cholelithiasis 08/09/2020 Diabetic neuropathy ([facility] V24, [facility] V28) 1 Overview (09/20/2024): Feet Glaucoma suspect 08/09/2020 Overview (09/20/2024): Left eye Hypertension 08/09/2020 Lactose intolerance 08/09/2020 Microalbuminuria 08/09/2020 Migraines 08/09/2020 Overview (09/20/2024): episodic Nephrolithiasis 08/09/2020 Seasonal allergies 08/09/2020 Slow transit constipation 08/09/2020 Type 2 diabetes mellitus wit h cataract ([facility] V24, [facility] V28) 08/09/2020 Type 2 diabetes mellitus wit h neurologic complication ([facility] V24, [facility] V28) 08/09/2020 Immunizations Name Administration Dates Next Due Pneumococcal conjugate 13 va lent (Prevnar 13, PCV13) 2mo and older 09/17/2019 Pneumococcal polysaccharide 23 valent (Pneumovax 23) 2yo and older 01/01/2016 Surgical History Surgery Date Site/Laterality Comments KIDNEY STONE SURGERY 04/2014 PROCEDURE: [place] NEPHROLITHOTOMY REMOVAL CALCULUS; COMMENT: x 3 TUBAL LIGATION PROCEDURE: HISTORICAL TUBAL LIGATION COLONOSCOPY 04/26/2011 PROCEDURE: HISTORICAL COLONOSCOPY; COMMENT: Diverticulosis, Repeat 10 yrs UPPER GASTROINTESTINAL ENDOSCOPY 09/24/2002 PROCEDURE: [place] UPPER GI ENDOSCOPY PERFORMED; COMMENT: hiatal hernia, mod retained bile suggestive of decreased gastric emptying UPPER GASTROINTESTINAL ENDOSCOPY 05/20/2012 PROCEDURE: [place] UPPER GI ENDOSCOPY PERFORMED; COMMENT: Reactive gastropathy OTHER SURGICAL HISTORY 07/23/2016 PROCEDURE: HISTORY OTHER; COMMENT: vocal cord polyps removed, Dr Altaf Nicole CARPAL TUNNEL RELEASE 05/2019 Left PROCEDURE: HISTORICAL CARPAL TUNNEL REL UPPER GASTROINTESTINAL ENDOSCOPY 11/05/2018 PROCEDURE: [place] UPPER GI ENDOSCOPY PERFORMED; COMMENT: Functional dyspepsia Medical History Medical History Date Comments Hyperlipidemia DX:Hyperlipidemi a GERD (gastroesophageal reflux disease) DX:GERD (gastroesophageal reflux disease) 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 ([facility] V24, [facility] V28) DX:Type 2 diabetes mellitus with renal complication (HCC) Microalbuminuria 08/09/2020 DX:Microalbumin uria Nephrolithiasis 08/09/2020 DX:Nephrolithias is Anxiety 08/09/2020 DX:Anxiety Lactose intolerance 08/09/2020 DX:Lactose i ntolerance Cholelithiasis 08/09/2020 DX:Cholelithiasi s Diabetic neuropathy ([facility] V24, [facility] V28) 08/09/2020 DX:Diabetic neuropathy ([facility]) ; COMMENT: Feet Type 2 diabetes mellitus wit h neurologic complication ([facility] V24, [facility] V28) 08/09/2020 DX:Type 2 diabetes mellitus with neurologic complication (HCC) Seasonal allergies 08/09/2020 DX:Seasonal a llergies Slow transit constipation 08/09/2020 DX:Slo w transit constipation Aortic atherosclerosis ([facility] V24) 08/09/2020 DX:Aortic atherosclerosis (HCC) Cataract 08/09/2020 DX:Cataract; COM MENT: Bilateral Type 2 diabetes mellitus wit h cataract ([facility] V24, [facility] V28) 08/09/2020 DX:Type 2 diabetes mellitus with [...] your loved ones. For example, child care associate teacher or elderly care for an older [...] PCV20 or PCV21) 09/17/2024 09/17/2019, 09/17/2019, 01/01/2016 Depression Screening 11/03/2024 10/04/2024 COVID-19 Vaccine ( season) 2025 07/04/2024, 11/06/2023, 09/12/2022, Additional history exists Influenza Vaccine (#1) 2025 , 07/25/2023, 07/02/2022, Additional history exists Cholesterol Screening (Lipid Panel) 07/28/2025 07/28/2020 Social Influencers of Health Screening 10/04/2025 10/04/2024 [...] Ratio (10/30/2020) Urine Albumin Creatinine Ratio Abstracted [facility] Provider HEALTH MAINTENANCE Final Result * Annual BMP Blood Test (10/30/2020) Pathologist [facility] Annual BMP Blood Test Abstracted [facility] Provider HEALTH MAINTENANCE Final Result * (ABNORMAL) Hemoglobin A1c (10/30/2020) [facility] Hemoglobin A1C 7.6(A) <=6.5 % Blood Venous blood specimen / Unknown [facility] Provider LAB BLOOD ORDERABLES Grace l Result * Lipid panel (07/28/2020) [facility] LDL/HDL Ratio 3 0 - 4 Triglycerides 123 0 - 150 mg/dL Cholesterol 135 0 - 200 mg/dL HDL 50 >=40 mg/dL LDL Cholesterol 61 0 - 100 mg/dL Blood Venous blood specimen / Unknown Result [facility] Provider LAB BLOOD ORDERABLES Grace l Result from Last 3 Months or Most Recently Relevant to Health Maintenance Insurance [facility] Member Subscriber Plan / Payer ( fective 2019-Present) Name:Roslyn Navarrete Relation to Subscriber:Self Name:Roslyn Navarrete Payer ID:[id number] Group ID:[id number] Type:Not on file Address: [place] [address] [address] [id number] [facility] MEDICARE Member Subscriber Plan / Payer ( fective 2019-Present) Name:Roslyn Navarrete Relation to Subscriber:Self Name:Roslyn Navarrete Payer ID:[id number] Group ID:[id number] Type:Not on file Address: [place] [address] [id number] Care Teams Assistant Men'S Lacrosse Coach Relationship Specialty Start Date End Date Celso Mathur PA PCP - General Physician Timber Framer Helper 09/17/24
== END 2025-06-14 13:59 | disposition home or self-care (01) ==
LOC: HO.HOS 13:23
PROVIDERS: PCP Physician Assistant; Visit Provider Orthopaedic Surgery
DX: M17.0 Bilateral primary osteoarthritis of knee (principal)
CPT/HCPCS: 20610; 99213

== ENCOUNTER → 2025-06-14 13:22 | Outpatient (BNVA) | payer OTHER, SELFPAY | PROVIDERS: PCP Physician Assistant; Visit Provider Orthopaedic Surgery | DX: M17.0 Bilateral primary osteoarthritis of knee (principal) | CPT/HCPCS: 20610; 99212; J1010; J2003 ==

== ENCOUNTER 2025-08-06 21:17 | Observation (INO) | payer OTHER, SELFPAY ==
--- NOTE | ~2025-08-06 | CT_ITS ---
CLINICAL HISTORY: dizzy --- Additional Notes or Special Instructions: itchy with contrast....no rash, no anaphylaxis, no CT Head WO Contrast COMPARISON: None provided FINDINGS: Asymmetric transcortical hypodensity in the left occipital lobe measuring 3.4 x 2.6 cm (series 6, image 20). No acute intracranial hemorrhage. Mild diffuse cortical volume loss. Mild nonspecific white matter hypodensities, most commonly associated with chronic microangiopathic changes. No mass-effect or midline shift. No hydrocephalus. Visualized orbits are normal. Cyst or polyp in the right maxillary sinus. Clear mastoid air cells. No acute fracture. Unremarkable soft tissues. IMPRESSION: Left occipital hypodensity, which could be due to acute ischemic change versus artifact. Consider MRI if indicated. Nonemergent/incidental findings in the report. CT Angiography Head W Contrast 3D Postprocessing COMPARISON: None provided FINDINGS: No occlusion or hemodynamically significant stenosis in the internal carotid arteries. No occlusion or hemodynamically significant stenosis in the middle cerebral arteries. No occlusion or hemodynamically significant stenosis in the anterior cerebral arteries. No occlusion or hemodynamically significant stenosis in the bilateral intracranial vertebral arteries. No occlusion or hemodynamically significant stenosis in the basilar artery. Patent bilateral mattress stripper. No aneurysm. IMPRESSION: No intracranial large artery occlusion or hemodynamically significant stenosis. CT Angiography Neck W Contrast 3D Postprocessing COMPARISON: None provided FINDINGS: No occlusion, hemodynamically significant stenosis, or dissection in the bilateral common carotid arteries. No occlusion, hemodynamically significant stenosis, or dissection in the bilateral internal carotid arteries (0-49 percent). No occlusion, hemodynamically significant stenosis, or dissection in the bilateral vertebral arteries. No acute fracture. IMPRESSION: No occlusion or hemodynamically significant stenosis in the carotid or vertebral arteries. No dissection. This document has been electronically signed by: Emanuel Nathan MD on 08/07/2025 04:54:06
--- NOTE | ~2025-08-06 | MR_ITS ---
CLINICAL HISTORY: ? Left occipital infarct MRI Brain WO Contrast COMPARISON: CT/SR - CT ANGIO HEAD NECK - 08/07/25 03:28 EDT FINDINGS: No evidence of acute infarction. No acute intracranial hemorrhage. No mass-effect or midline shift. Mild diffuse cortical volume loss. No hydrocephalus. Cyst in the right maxillary sinus. Clear mastoid air cells. Unremarkable orbits. IMPRESSION: No acute intracranial findings. Left occipital hypodensity seen on prior CT appears to have been artifactual. This document has been electronically signed by: Emanuel Nathan MD on 08/08/2025 18:54:29
[2025-08-06 21:33] VITALS: BP 120/63; PULSE 88; RESP 14; TEMP 36.1; O2SAT 96; BMI 26.4
--- NOTE | 2025-08-06 21:38 | ECG_ITS ---
Test Reason : tdizziness Blood Pressure : */* mmHG Vent. Rate : 79 BPM Atrial Rate : 79 BPM P-R Int : 150 ms QRS Dur : 90 ms QT Int : 378 ms P-R-T Axes : 44 -16 29 degrees QTcB Int : 433 ms Normal sinus rhythm Normal ECG When compared with ECG of 12-Nov-2023 15:35, No significant change was found Referred By: Generic ED Physician Electronically Signed By: CHERIE MCCAIN
[2025-08-06 22:10] LABS: MANUAL DIFF FLAG NO
[2025-08-06 22:11] LABS: Hematocrit 31.9 % (37.0-47.0); Hemoglobin 10.7 g/dl (12.0-16.0); Imm Gran Abs Auto 0.01 X10*3/uL (0.00-0.03); Imm Gran Pct Auto 0.1 % (0.0-0.4); Lymphocytes Absolute Auto 2.0 X10*3/uL (1.2-4.9); Mean Corpuscular HGB Conc 33.5 g/dl (31.0-35.0); Mean Corpuscular Hemoglobin 28.1 pg (27.0-33.0); Mean Corpuscular Volume 83.7 fL (80.0-98.0); NRBC Abs Auto 0.000 X10*3/uL (0.0-0.012); NRBC Pct Auto 0.0 /100WBC (0.0-0.2); Platelet Count 235 X10*3/uL (160-400); Red Blood Count 3.81 X10*6/uL (4.20-5.50); White Blood Count 7.8 X10*3/uL (4.8-10.8)
[2025-08-06 22:27] LABS: Alanine Aminotransferase 16 U/L (0-31); Albumin Level 4.4 g/dL (3.5-5.0); Alkaline Phosphatase 46 U/L (39-117); Anion Gap 13 (12-20); Aspartate Amino Transferase 18 U/L (5-31); Blood Urea Nitrogen 20 mg/dL (9-16); Calcium 9.5 mg/dL (8.4-10.2); Carbon Dioxide 24 mmol/L (22-29); Chloride 106 mmol/L (96-108); Creatinine Clr Calc Pharmacy 51.8; Estimated Glomerular Filt Rate 57; Potassium 3.9 mmol/L (3.3-5.1); Sodium 139 mmol/L (135-145); Total Protein 7.2 g/dL (6.5-8.0)
[2025-08-06 22:48] LABS: Troponin-I High Sensitivity < 2.7 ng/L (<3.5-17.0)
[2025-08-07] VITALS (8 sets, daily range): BP systolic 113–149; BP diastolic 61–85; PULSE 74–84; RESP 14–20; TEMP 36.5–36.8; O2SAT 94–99; BMI 28.0
--- OUTSIDE RECORDS SUMMARY | 2025-08-07 00:20 | XMS_ITS | Data Portability ---
Author Organization [place] [facility], Allergy Address [address] [place] [phone] Care Team Providers Care Gre Tutor Name Role Phone LORENZO GROSSMAN Referring Provider [phone] Assessment No assessment recorded. Plan of Treatment [...] and Address Organization Details Recorded Time Dysphonia 71267229 Active 2015 Hoarsenes s; Note: Date Diagnosed : 03/18/2016 2:56 PM (R49.0) Not Available [facility] 4 02:44:16 Polyp of vocal cord or larynx 097314791 Active 2015 Polyp of vocal cord and larynx; Note: Date Diagnosed : 03/18/2016 2:56 PM (J38.1) Not Available [facility] 4 02:44:17 Follow-up visit Active 2016 Medical surveilla nce following completed treatment ; Note: Date Diagnosed : 01/08/2017 1:44 PM (Z09) Not Available [facility] 4 02:44:21 Foreign body in left ear [id number] 330729 Active 2018 Foreign body in left ear, initial encounter ; Note: Date Diagnosed : 9 1:46 PM (T16.2XXA ) Not Available [facility] 4 02:44:17 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 Procedures Surgical History Date Name Laterality Status Provider Name and Address Organization Details Recorded Time 02/14/2025 NasalEndos copy_DP completed OSWALDO GONZALEZ MD [address] [facility],[place] [address], [place], [address], [place] - [facility] 02/14/2025 14:46:15 Imaging Results None recorded. Procedure Notes None recorded. Medical Equipment None Reported. Allergies Allergen ID Allergen Name Allergen Category Reaction Reaction Severity Criticality Documentation Date Start Date Code Code System Note Provider Name and Address Organization Details Recorded Time 888350 Bactrim medicatio n Not available Not available Not available 02/14/2025 38853 9 RxNorm Ginnette Rancitell i null, [place] - [facility] 14:18:15 753820 Reglan medicatio n Not available Not available Not available 02/14/2025 9230 RxNorm Ginnette Rancitell i issac, [place] - [facility] 14:20:38 144969 dicyclomi ne medicatio n Not available Not available Not available 02/14/2025 3361 RxNorm Ginnette Rancitell i null, [place] - [facility] 14:21:11 008292 amitripty line medicatio n Not available Not available Not available 02/14/2025 704 RxNorm Ginnette Rancitell i null, [place] - [facility] 14:21:21 367119 latex environme nt,medica tion Not available Not available Not available 02/14/2025 01201 91 RxNorm Ginnette Rancitell i null, [place] - [facility] 5 14:21:33 165941 naproxen medicatio n Not available Not available Not available 02/14/2025 7258 RxNorm Ginnette Rancitell i null, [place] [facility] 5 14:21:48 160896 hydrocodo ne Not available Not available Not available Not available 02/14/2025 5489 RxNorm Ginnette Rancitell i null, [place] [facility] 5 14:22:02 241030 tramadol medicatio n Not available Not available Not available 02/14/2025 10305 RxNorm Ginnette Rancitell i null, [place] - [facility] 5 14:22:11 84661 ibuprofen medicatio n other Not available Not available 03/16/2024 5640 RxNorm React ion: unkno wn, unspe cifie d;; Not Available Pending sale to [facility] 4 00:58:51 69262 diphenhyd ramine hydrochlo ride medicatio n other Not available Not available 03/16/2024 1362 RxNorm React ion: unkno wn, unspe cifie d;; Not Available Pending sale to [facility] 4 00:58:52 58956 promethaz ine hydrochlo ride medicatio n other Not available Not available 03/16/2024 10124 5 RxNorm React ion: unkno wn, unspe cifie d;; Not Available Pending sale to [facility] 4 00:59:01 02399 Substance with sulfonami de structure and antibacte rial mechanism of action (substanc e) medicatio n other Not available Not available 03/16/2024 30847 8003 SNOMED React ion: unkno wn, unspe cifie d;; Not Available Pending sale to [facility] 4 00:59:03 Medications Name Sig Start [...] mg tablet 2015 active Medicatio n ID: [id number] Du ration Value: 30 Brand Name: metformin [...] release 24 hr active Medicatio n ID: [id number] Du ration Value: 90 Brand Name: glipizide Send Method: E-Prescri bed Subs Allowed: subs OK Medica tionGener icName: glipizide Not Available Not Available Not Available prednisone 20 mg tablet TAKE 1 TABLET BY MOUTH EVERY DAY FOR 7 DAYS active Not Available Not Available No t Available lovastatin 40 mg tablet 2015 active Medicatio n ID: [id number] Du ration Value: 30 Brand Name: lovastati [...] ayed release 2015 active Medicatio n ID: [id number] Du ration Value: 30 Brand Name: aspirin [...] 50 mg tablet active Medicatio n ID: [id number] Du ration Value: 90 Brand Name: pyridoxin e (vitamin B6) Send Method: E-Prescri bed Subs Allowed: subs OK Medica tionGener icName: pyridoxin e (vitamin B6) Not Available Not Available Not Available omeprazole 20 mg capsule,de layed release 2015 active Medicatio n ID: [id number] Du ration Value: 30 Brand Name: omeprazol e Send Method: E-Prescri bed Subs Allowed: subs OK Medica tionGener icName: omeprazol e Not Available Not Available Not Available folic acid 1 mg tablet TAKE 1 TABLET BY MOUTH DAILY active Not Available Not Available No t Available alcohol swabs 2015 active Medicatio n ID: [id number] Du ration Value: 50 Brand Name: alcohol [...] gram/dose oral powder active Medicatio n ID: [id number] Du ration Value: 21 Brand Name: Purelax [...] Updated DateTime 02/14/2025 162.56 cm 25.9 kg/m2 35121.45 g Eduardo Kapadia [place] [facility] 02/14/2025 14:13:11 Social History None recorded. Functional [...] Diagnosis SNOMED-CT Code Diagnosis ICD10 Code Diagnosis IMO Codes Diagnosis Note [id number] OSWALDO GONZALEZ MD [facility] on [address] [place] [phone] 02/14/2025 13:35:28 02/14/2025 16:52:34 Polyp of nasal cavity and/or nasal sinus 842985727 J33.9 Exam and nasal endoscopy were negative for polyps. I gave reassuranc e. Nasal vestibulitis 53815 000 J34.89 She is actually pointing to [...] [place] Member ID Guarantor Name 02/24/2025 1 [facility] - DOS ON OR AFTER 2023 - MEDICARE ADVANTAGE [place] (MEDICARE REPLACEMENT/ADV ANTAGE - PPO) Roslyn Jorgensen Rosalba [id number] Roslyn Jorgensen Rosalba Notes Date Note Type Note Provider Name and Address Organization Details Recorded Time 02/14/2025 text/html ROS as noted in the HPI For about 5 years she has noted polyps in her nose herself. She says sometimes they are there and sometimes not. She denies nasal obstruction. Wanted to have them checked. Denies facial pain. No sinusitis. She does not smoke. Had a DL with VC biopsy with Dr. Nicole in 2016. OSWALDO GONZALEZ MD [address] [place] [address], [phone], [facility] - [facility] 02/14/2025 14:53:09 OBGyn Episode No OBEpisode recorded.
--- OUTSIDE RECORDS SUMMARY | 2025-08-07 00:20 | XMS_ITS | Clinical Summary ---
Author Organization [facility] Address [address] [place] [address] Phone Care Team Providers Care Retail Merchandising Specialist Name Role Phone Celso Mathur Primary Care [...] under the skin once a week. Active Social History Tobacco Use Types Packs/Day Years [...] 05/03/2025 1:46 PM EDT Plan of Treatment Health Maintenance Due Date [...] series) 2014 OSTEOPOROSIS SCREENING INITIAL (ONE-TIME) 2019 INFLUENZA VACCINE (#1) 2025 , 07/25/2023, 07/02/2022, Additional history exists COVID-19 VACCINE ( season) 2025 07/04/2024, 11/06/2023, [...] this topic Medical Devices Not on file Insurance [facility] MEDICARE REPLACEMENT [facility] [id number] [facility] MEDICARE REPLACEMENT MEDICARE REPLACEMENT [facility] MEDICARE REPLACEMENT [facility] MEDICARE REPLACEMENT Care Teams Retail Merchandising Specialist Relationship Specialty Start Date End Date Celso Mathur PA [address] [place] [id number] PCP - General Physician Academy Education Director 03/31/25 Additional Source Comments The information contained in this document represents components of the legal health record. It is not the complete legal health record.[facility]
--- OUTSIDE RECORDS SUMMARY | 2025-08-07 00:20 | XMS_ITS | Clinical Summary ---
Author Organization [facility] [address] [facility] Address [address] [place] [address] Phone Care Team Providers Care Picu Nurse Name Role Phone Celso Mathur Primary Care Provider Allergies Active Allergy Reactions Criticality Noted Date Comments Amitriptyline 08/09/2020 [place] hyper Dicyclomine Hives,Rash 07/14/2014 Dicyclomine Hydrocodone-Acetaminophen Hives [...] 1 (one) time each day. 4 Active [employer] Funding[employer] Ultra Test test strip USE TO TEST [...] 2 diabetes mellitus wit h renal complication ([facility]/HCC V24, [facility]/HCC V28) 09/20/2024 COVID-19 virus infection 01/31/2021 Overview (09/20/2024): 11/2020 per patient Abnormal mammogram of left breast 12/26/2020 Overview (09/20/2024): 12/2020, ordering diagnostic mammo and u/s Anxiety 08/09/2020 Aortic atherosclerosis ([facility] V24) 08/09/2020 Carpal tunnel syndrome 08/09/2020 Overview (09/20/2024): Bilateral, 05/2019 Left CTR Cataract 08/09/2020 Overview (09/20/2024): Bilateral Cholelithiasis 08/09/2020 Diabetic neuropathy ([facility] V24, [facility] V28) 1 Overview (09/20/2024): Feet Glaucoma suspect 08/09/2020 Overview (09/20/2024): Left eye Hypertension 08/09/2020 Lactose intolerance 08/09/2020 Microalbuminuria 08/09/2020 Migraines 08/09/2020 Overview (09/20/2024): episodic Nephrolithiasis 08/09/2020 Seasonal allergies 08/09/2020 Slow transit constipation 08/09/2020 Type 2 diabetes mellitus wit h cataract ([facility] V24, [facility] V28) 08/09/2020 Type 2 diabetes mellitus wit h neurologic complication ([facility] V24, [facility] V28) 08/09/2020 Immunizations Immunization Administration Dates Next Due Pneumococcal conjugate 13 va lent (Prevnar 13, PCV13) 2mo and older 09/17/2019 Pneumococcal polysaccharide 23 valent (Pneumovax 23) 2yo and older 01/01/2016 Surgical History Surgery Date Site/Laterality Comments KIDNEY STONE SURGERY 04/2014 PROCEDURE: MT NEPHROLITHOTOMY REMOVAL CALCULUS; COMMENT: x 3 TUBAL LIGATION PROCEDURE: HISTORICAL TUBAL LIGATION COLONOSCOPY 04/26/2011 PROCEDURE: HISTORICAL COLONOSCOPY; COMMENT: Diverticulosis, Repeat 10 yrs UPPER GASTROINTESTINAL ENDOSCOPY 09/24/2002 PROCEDURE: MT UPPER GI ENDOSCOPY PERFORMED; COMMENT: hiatal hernia, mod retained bile suggestive of decreased gastric emptying UPPER GASTROINTESTINAL ENDOSCOPY 05/20/2012 PROCEDURE: MT UPPER GI ENDOSCOPY PERFORMED; COMMENT: Reactive gastropathy OTHER SURGICAL HISTORY 07/23/2016 PROCEDURE: HISTORY OTHER; COMMENT: vocal cord polyps removed, Dr Altaf Nicole CARPAL TUNNEL RELEASE 05/2019 Left PROCEDURE: HISTORICAL CARPAL TUNNEL REL UPPER GASTROINTESTINAL ENDOSCOPY 11/05/2018 PROCEDURE: MT UPPER GI ENDOSCOPY PERFORMED; COMMENT: Functional dyspepsia Medical History Medical History Date Comments Hyperlipidemia DX:Hyperlipidemi a GERD (gastroesophageal reflux disease) DX:GERD (gastroesophageal reflux disease) 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 ([facility] V24, [facility] V28) DX:Type 2 diabetes mellitus with renal complication (HCC) Microalbuminuria 08/09/2020 DX:Microalbumin uria Nephrolithiasis 08/09/2020 DX:Nephrolithias is Anxiety 08/09/2020 DX:Anxiety Lactose intolerance 08/09/2020 DX:Lactose i ntolerance Cholelithiasis 08/09/2020 DX:Cholelithiasi s Diabetic neuropathy ([facility] V24, [facility] V28) 08/09/2020 DX:Diabetic neuropathy ([facility]) ; COMMENT: Feet Type 2 diabetes mellitus wit h neurologic complication ([facility] V24, [facility] V28) 08/09/2020 DX:Type 2 diabetes mellitus with neurologic complication (HCC) Seasonal allergies 08/09/2020 DX:Seasonal a llergies Slow transit constipation 08/09/2020 DX:Slo w transit constipation Aortic atherosclerosis ([facility] V24) 08/09/2020 DX:Aortic atherosclerosis (HCC) Cataract 08/09/2020 DX:Cataract; COM MENT: Bilateral Type 2 diabetes mellitus wit h cataract ([facility] V24, [facility] V28) 08/09/2020 DX:Type 2 diabetes mellitus with [...] for your loved ones. For example, child custody evaluator or elderly care for an older adult? [...] Date Recorded What is your living situation? Unrecognized valu e 10/04/2024 Comments No Sex and Gender Information Value Date Recorded Sex Assigned at Not on file Legal Sex Female 7:02 AM EST Gender Identity Not on file Sexual Orientation Not on file Obstetrics History Para Term AB IAB SAB Ectopic Multiple Livin g Live Births 3 3 3 0 0 0 3 3 Date Outcome [...] Last Done Comments Breast Cancer Screening 1955 Colorectal Cancer Screening: Colonoscopy 1955 Diabetes: Annual Foot Exam 1964 Diabetes: Annual Retina Eye Exam 1964 Hepatitis A Vaccines (1 of 2 - Risk 2-dose series) 1973 Zoster Vaccines (1 of 2) 2004 Hepatitis B Vaccines (1 of 3 - Risk 3-dose series) 2014 RSV Immunization Adult Patients (1 - Risk 60-74 years 1-dose series) 2014 Diabetes: Annual GFR (Glomerular Filtration Rate) 10/30/2021 10/30/2020 Falls Risk Assessment 10/06/2022 Hepatitis C Screening [...] Procedure Name Priority Date/Time Associated Diagnosis Comments HM URINE ALBUMIN CREATININE RATIO Routine 10/30/2020 ANNUAL BMP BLOOD TEST Routine 10/30/2020 HEMOGLOBIN A1C Routine 10/30/2020 LIPID PANEL Routine 07/28/2020 from Last 3 Months or Most Recently Relevant to Health Maintenance Results * Urine Albumin Creatinine Ratio (10/30/2020) Urine Albumin Creatinine Ratio Abstracted Historical Provider HEALTH MAINTENANCE Final Result * Annual BMP Blood Test (10/30/2020) Pathologist [facility] Annual BMP Blood Test Abstracted [facility] Provider HEALTH MAINTENANCE Final Result * (ABNORMAL) Hemoglobin A1c (10/30/2020) [facility] Hemoglobin A1C 7.6(A) <=6.5 % Blood Venous blood specimen / Unknown [facility] Provider LAB BLOOD ORDERABLES Grace l Result * Lipid panel (07/28/2020) [facility] LDL/HDL Ratio 3 0 - 4 Triglycerides 123 0 - 150 mg/dL Cholesterol 135 0 - 200 mg/dL HDL 50 >=40 mg/dL LDL Cholesterol 61 0 - 100 mg/dL Blood Venous blood specimen / Unknown [facility] Provider LAB BLOOD ORDERABLES Grace l Result from Last 3 Months or Most Recently Relevant to Health Maintenance Insurance [facility] Member Subscriber Plan / Payer ( fective 2019-Present) Name:Roslyn Navarrete Relation to Subscriber:Self Name:Roslyn Navarrete Payer ID:[id number] Group ID:[id number] Type:Not on file Address: [place] [address] [address] [place] [phone] [facility] MEDICARE Member Subscriber Plan / Payer (Ef fective 2019-Present) Name:Roslyn Navarrete Relation to Subscriber:Self Name:Roslyn Navarrete Payer ID:[id number] Group ID:[id number] Type:Not on file Address: [place] [address] [address] Care Teams Picu Nurse Relationship Specialty Start Date End Date Celso Mathur PA PCP - General Physician Body Welder 09/17/24
--- NOTE | 2025-08-07 00:35 | ED.GENADULT ---
HPI - General Adult General Chief complaint: Dizziness Stated complaint: unsteady balance/dizziness Time Seen by Provider: 08/07/25 00:35 Source: patient Limitations: no limitations History of Present Illness ED Provider: Delores Hazel PA-C HPI narrative: 69-year-old female with a history of hyperlipidemia, hypertension, diabetes and migraine presents with intermittent dizziness x2 days. Patient states she is having episodes where she feels her gait has been unsteady. Associated frontal headache at times. Denies that position changes worsen her dizziness. Denies head trauma, nausea or vomiting. Patient is currently asymptomatic. Related Data Previous Rx's ?Medication ?Instructions ?Recorded blood sugar diagnostic (FreeStyle #100 ea 02/27/23 Test strips) blood-glucose meter (FreeStyle #1 ea 02/27/23 Taylor Lite kit) lancets 28 gauge (FreeStyle #100 ea 03/15/23 Lancets) polyethylene glycol 3350 17 gram 17 g PO DAILY PRN for constipation 12/03/23 oral powder packet (HealthyLax) #30 packets diphenhydramine HCl 25 mg tablet 50 mg (2 x 25 mg) PO DIRECTED 12/05/23 (Allergy (diphenhydramine)) #1 tab sucralfate 1 gram tablet 1 g PO BID #180 tabs 03/08/24 acetaminophen 300 mg-codeine 30 mg 1 tab PO BID PRN severe pain 08/16/24 tablet (scale score 7-10) #6 tabs walker (Ultra-Light Rollator misc) #1 ea 08/19/24 blood pressure monitor #1 ea 10/14/24 losartan 50 mg tablet 50 mg PO DAILY 90 days #90 tabs 02/24/25 atorvastatin 40 mg tablet 40 mg PO DAILY #90 tabs 03/20/25 metformin 500 mg tablet,extended 500 mg PO BID 90 days #180 tabs 04/14/25 release 24 hr mometasone 0.1 % topical ointment 1 appl topical DAILY 30 days #45 04/14/25 grams leflunomide 20 mg tablet 20 mg PO DAILY #90 tabs 07/11/25 rabeprazole 20 mg tablet,delayed 20 mg PO DAILY #90 tabs 07/26/25 release tirzepatide 2.5 mg/0.5 mL 2.5 mg (0.5 mL) subcut QWEEK 4 07/28/25 subcutaneous pen injector weeks #2 mL (Mounjaro) Allergies Allergy/AdvReac Type Severity Reaction Status Date / Time etanercept (From Enbrel) Allergy Intermediate Rash Verified 08/06/25 21:36 cetirizine Allergy Mild Hives Verified 08/06/25 21:36 dicyclomine (From BENTYL) Allergy Unknown HIVES Verified 08/06/25 21:36 hydrocodone (HYDROCODONE) Allergy Unknown UNKNOWN Verified 08/06/25 21:36 ibuprofen (From MOTRIN) Allergy Unknown HIVES Verified 08/06/25 21:36 Iodinated Contrast Media (IV Allergy Unknown ITCHING Verified 08/06/25 21:36 CONTRAST) minocycline (MINOCYCLINE) Allergy Unknown UNK Verified 08/06/25 21:36 morphine (MORPHINE) Allergy Unknown UNKNOWN Verified 08/06/25 21:36 naproxen (NAPROXEN) Allergy Unknown UNKOWN Verified 08/06/25 21:36 peanut (PEANUT) Allergy Unknown HIVES Verified 08/06/25 21:36 sulfamethoxazole (From Allergy Unknown UNKNOWN Verified 08/06/25 21:36 BACTRIM) tramadol (TRAMADOL) Allergy Unknown UNK Verified 08/06/25 21:36 trimethoprim (From BACTRIM) Allergy Unknown UNKNOWN Verified 08/06/25 21:36 lisinopril Allergy Abdominal Verified 08/06/25 21:36 Pain methotrexate Allergy Joint Pain Verified 08/06/25 21:36 metronidazole (From Flagyl) Allergy Hives Verified 08/06/25 21:36 glipizide AdvReac Intermediate neuropathy Verified 08/06/25 21:36 amitriptyline (AMITRIPTYLINE) AdvReac Mild HYPER Verified 08/06/25 21:36 metoclopramide (From REGLAN) AdvReac Mild HYPER Verified 08/06/25 21:36 latex (LATEX) AdvReac Unknown RASH Verified 08/06/25 21:36 phenylephrine (PHENYLEPHRINE) AdvReac Unknown UNKNOWN Verified 08/06/25 21:36 promethazine (From PHENERGAN) AdvReac Unknown UNK Verified 08/06/25 21:36 glipizide Allergy Mild Rash Uncoded 04/14/25 15:00 SHELLFISH Allergy Unknown HIVES Uncoded 04/14/25 15:00 Review of Systems Review of Systems: Yes all other systems are reviewed and are negative Constitutional: Constitutional: Denies fatigue, Denies fever(s) and Reports headache(s) Eyes: Eyes: Denies change in vision ENT: Denies vertigo, Reports dizziness and Reports headache(s) Cardiovascular: Cardiovascular: Denies chest pain and Denies dyspnea Respiratory: Respiratory: Denies dyspnea Gastrointestinal: Gastrointestinal: Denies abdominal pain, Denies nausea and Denies vomiting Neurologic: Denies vertigo, Reports dizziness and Reports headache(s) Endocrine: Endocrine: Denies fatigue [facility] Past Medical History Attestation statement: The following information was validated with the patient. Medical History (Updated 08/07/25 @ 06:01 by DONN Cordero) Eczema Dermatitis Neuropathic pain Thrush Vaginitis Vaginal cyst IBS (irritable bowel syndrome) GERD (gastroesophageal reflux disease) Osteoarthritis Rheumatoid arthritis HTN (hypertension) Migraine GERD (gastroesophageal reflux disease) Diabetes Surgical History (Updated 08/07/25 @ 06:01 by DONN Cordero) S/P carpal tunnel release Hx of colonoscopy History of esophagogastroduodenoscopy (EGD) S/P carpal tunnel release Family History Family History Maternal Grandmother Colon cancer Brother History of heart disease Social History Social History Housing: Apartment Alcohol intake: never Patient Tobacco Use Status: Never used Tobacco e-Cigarette/Vaping Use: Never Used Second Hand Smoke Exposure: No Use of substances other than those prescribed or required for medical reasons: No Advance Directives: No Advance Directives Information Provided: Yes Advance Directives Date on File: 04/25/23 Do you have a plan to hurt others: No Plan Patient : No service: No Current occupational status: disabled Cognitive needs: No Hearing needs: No Vision needs: No Physical Exam ED Vital Signs: Vital Signs - 24 hr 08/06/25 21:33 08/07/25 00:23 08/07/25 03:13 Temperature 97.0 F 98.0 F Pulse Rate 88 76 76 Respiratory Rate 14 14 16 Blood Pressure 120/63 141/68 H 134/72 Pulse Oximetry 96 97 97 Oxygen Delivery Method Room Air Room Air Room Air BMI result Body Mass Index 26.4 Const Other: Alert well-appearing Orientation/consciousness: patient oriented x3 Eyes Other: No nystagmus Resp Effort & Inspection: normal respiratory effort Cardio Other: Normal peripheral perfusion Skin Other: Warm dry no rash Neuro Other: No ataxia Romberg negative General: patient oriented x3, gait normal, no focal motor deficits and CN's II-XI intact bilaterally Extrem Other: Strength 5/5 bilateral upper and lower extremities Psych Other: Cooperative NIH Stroke Scale Level of Consciousness: Alert Level of Consciousness Questions: Answers both questions correctly Level of Consciousness Commands: Performs both tasks correctly Best Gaze: Normal Visual: No visual loss Facial Palsy: Normal Motor Arm (Right): No drift Motor Arm (Left): No drift Motor Leg (Right): No drift Motor Leg (Left): No drift Limb Ataxia: Absent Sensory: Normal Best Language: No aphasia Dysarthia: Normal Extinction and Inattention: No abnormality Score: 0 Medications Administered Discontinued Medications Generic Name Dose Route Start Last Admin Trade Name Freq PRN Reason Stop Dose Admin Diphenhydramine HCl 50 mg 08/07/25 01:02 08/07/25 03:16 Diphenhydramine Hcl 50 Mg/Ml Vial IVPUSH 08/07/25 01:03 50 mg ONCE ONE Administration Iohexol 100 ml 08/07/25 03:41 08/07/25 03:42 Iohexol 350 Mg/Ml 100 Ml Infus..Btl IV 08/07/25 03:42 70 ml ONCE ONE Administration Procedures Procedure Narrative Procedure Narrative: Ultrasound-guided IV 20 gauge 1-3/4 inch IV placed in left upper extremity. Adequate blood return flushes well secured with Tegaderm Medical Decision Making Medical Decision Making MDM Narrative: 69-year-old female with a history of hyperlipidemia, hypertension, diabetes and migraine presents with intermittent dizziness x2 days. Patient states she is having episodes where she feels her gait has been unsteady. Associated frontal headache at times. Denies that position changes worsen her dizziness. Denies head trauma, nausea or vomiting. Patient is currently asymptomatic. Problem: Age, vascular risk factors, migraine History: Per patient I have considered the following differential diagnoses: Posterior circulation CVA, vertigo, complex migraine, labyrinthitis/otitis media , ACS, dehydration, anemia, electrolyte abnormality, new arrhythmia Plan: Patient presents with a intermittent dizziness, that has not vertiginous in nature. Could be complex migraine, although the patient states her symptoms have not been consistent with her typical migraines. Thought about labyrinthitis and otitis media, however she denies ear pain, she has not had cough cold symptoms no congestion. I am most concerned for posterior circulation CVA, the patient has numerous risk factors for vascular disease. Obtaining CT angiograms. Screening labs including cardiac enzymes EKG obtained from triage. To note, her symptoms are not consistent with ACS. She has no underlying anemia, clinical dehydration or electrolyte abnormality to account for the dizziness. There was also no documented new arrhythmia. I have independently reviewed the following tests: Labs: Not anemic, no leukocytosis, no electrolyte abnormality, troponin less than 2.7 EKG: Normal sinus rhythm, rate of 79, no ischemic changes no ectopy QTC 433 CT brain: CT angiogram head and neck:CT Head WO Contrast COMPARISON: None provided FINDINGS: Asymmetric transcortical hypodensity in the left occipital lobe measuring 3.4 x 2.6 cm (series 6, image 20). No acute intracranial hemorrhage. Mild diffuse cortical volume loss. Mild nonspecific white matter hypodensities, most commonly associated with chronic microangiopathic changes. No mass-effect or midline shift. No hydrocephalus. Visualized orbits are normal. Cyst or polyp in the right maxillary sinus. Clear mastoid air cells. No acute fracture. Unremarkable soft tissues. IMPRESSION: Left occipital hypodensity, which could be due to acute ischemic change versus artifact. Consider MRI if indicated. Nonemergent/incidental findings in the report. CT Angiography Head W Contrast 3D Postprocessing COMPARISON: None provided FINDINGS: No occlusion or hemodynamically significant stenosis in the internal carotid arteries. No occlusion or hemodynamically significant stenosis in the middle cerebral arteries. No occlusion or hemodynamically significant stenosis in the anterior cerebral arteries. No occlusion or hemodynamically significant stenosis in the bilateral intracranial vertebral arteries. No occlusion or hemodynamically significant stenosis in the basilar artery. Patent bilateral board operator. No aneurysm. IMPRESSION: No intracranial large artery occlusion or hemodynamically significant stenosis. CT Angiography Neck W Contrast 3D Postprocessing COMPARISON: None provided FINDINGS: No occlusion, hemodynamically significant stenosis, or dissection in the bilateral common carotid arteries. No occlusion, hemodynamically significant stenosis, or dissection in the bilateral internal carotid arteries (0-49 percent). No occlusion, hemodynamically significant stenosis, or dissection in the bilateral vertebral arteries. No acute fracture. IMPRESSION: No occlusion or hemodynamically significant stenosis in the carotid or vertebral arteries. No dissection. This document has been electronically signed by: Emanuel Nathan MD on 08/07/2025 04:54:06 Differential Diagnosis Differential Diagnoses: The differential diagnosis associated with the presentation includes See medical decision-making Admission/Observation Consideration of admission/observation: Escalation of care including admission/observation considered We will admit for CVA rule out Consult Healthcare Provider Management of the patient was discussed with: Hospitalist and Tobacco Stripper Hand Likely neurology consult Lab Data MDM Lab Attestation statement: I reviewed the patient's lab results. 08/06/25 22:02 08/06/25 22:02 Labs: Lab Results 08/06/25 Range/Units 22:02 WBC 7.8 (4.8-10.8) X10*3/uL RBC 3.81 L (4.20-5.50) X10*6/uL Hgb 10.7 L (12.0-16.0) g/dl Hct 31.9 L (37.0-47.0) % MCV 83.7 (80.0-98.0) fL MCH 28.1 (27.0-33.0) pg MCHC 33.5 (31.0-35.0) g/dl RDW 13.1 (11.0-16.0) % Plt Count 235 (160-400) X10*3/uL MPV 9.7 (9.4-12.3) fL Immature Gran % (Auto) 0.1 (0.0-0.4) % Neut % (Auto) 61.0 (45-73) % Lymph % (Auto) 25.4 (20-40) % [place] % (Auto) 6.8 (2-11) % Eos % (Auto) 5.8 H (0-4) % Baso % (Auto) 0.9 (0-2) % Lymph # (Auto) 2.0 (1.2-4.9) X10*3/uL [place] # (Auto) 0.5 (0.1-1.2) X10*3/uL Eos # (Auto) 0.5 H (0.0-0.4) X10*3/uL Baso # (Auto) 0.1 (0.0-0.2) X10*3/uL Abs Immat Gran (auto) 0.01 (0.00-0.03) X10*3/uL Absolute Neuts (auto) 4.7 (2.0-8.3) x10*3/uL Absolute Nucleated RBC 0.000 (0.0-0.012) X10*3/uL Nucleated RBC % (auto) 0.0 (0.0-0.2) /100WBC Sodium 139 (135-145) mmol/L Potassium 3.9 (3.3-5.1) mmol/L Chloride 106 (96-108) mmol/L Carbon Dioxide 24 (22-29) mmol/L Anion Gap 13 (12-20) BUN 20 H (9-16) mg/dL Creatinine 0.97 (0.5-1.4) mg/dL Estim Creat Clear Calc 51.8 Estimated GFR 57 Random Glucose 217 H (60-115) mg/dL Estimat Average Glucose 151 mg/dL Hemoglobin A1c % 6.9 H (<6.0) % Calcium 9.5 (8.4-10.2) mg/dL Total Bilirubin 0.3 (0.0-1.0) mg/dL AST 18 (5-31) U/L ALT 16 (0-31) U/L Alkaline Phosphatase 46 (39-117) U/L Troponin I High Sens < 2.7 (<3.5-17.0) ng/L Total Protein 7.2 (6.5-8.0) g/dL Albumin 4.4 (3.5-5.0) g/dL Triglycerides 130 (<150) mg/dL Cholesterol 123 (<200) mg/dL LDL Cholesterol, Calc 58 (<100) mg/dL HDL Cholesterol 39 L (>40) mg/dL Independent Interpretation I performed an independent interpretation of an: EKG Radiology Impression Discussion of test interpretation with radiology: I have reviewed the radiologist's reading. Critical Care Time Critical Care Time Critical Care Time: Yes Total Critical Care Time: 35 Attestation: I Delores Hazel PA-C have personally performed 35 minutes of critical care time not including lines and procedures; posterior circulation CVA rule out, need for MRI need for inpatient admission Discharge Plan Discharge Clinical Impression: Dizziness Patient Disposition: Admitted As Inpatient
[2025-08-07] MEDS: iohexoL 350 MG/ML 100 ML INFUS..BTL IV (03:42)
--- NOTE | 2025-08-07 05:53 | P.HPHOSP_ITS ---
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 Patient also was having a mild headache in the frontal area. Patient right-hand dominant. Patient currently lives alone, is independent with driving and all ADLs and IADLs and at this time denies any falls or injuries related to her symptoms. Patient denies any chest pain, shortness of breath at rest or with exertion. Patient denies any visual changes or loss of visual acuity in any way. Patient denies any loss of smell or sensation. It does have chronic neuropathy in both feet related to her diabetes. Workup in the ED indicated a CTA of the head and neck which indicated no occlusion or hemodynamically significant stenosis in the carotid or vertebral arteries and no dissection. CT of the head identified a left occipital hypodensity which per radiologist could be interpreted as acute ischemic change or versus artifact. This was reviewed by ED provider and the recommendation stands that patient should be admitted for an MRI. Patient currently has no deficits and neurological exam is currently reassuring. Patient is having no issues with swallowing or aphasia. NIH score 0. Patient labs reflect stable anemia with an H&H of 10.7 and 31.9 with no leukocytosis and normal platelet count. Glucose today 217 and A1c is pending. Lipid panel also pending.LFTs within normal limits. Review of Systems 2 Review of Systems: Patient currently denies any chest pain, shortness breath at rest or with exertion. Patient denies any abdominal pain, current constipation or diarrhea issues. Patient denies any nausea or vomiting. Patient has not had any falls related to her reporting symptoms. Yes all other systems are reviewed and are negative [facility] Medical History (Updated 08/07/25 @ 06:01 by DONN Cordero) Eczema Dermatitis Neuropathic pain Thrush Vaginitis Vaginal cyst IBS (irritable bowel syndrome) GERD (gastroesophageal reflux disease) Osteoarthritis Rheumatoid arthritis HTN (hypertension) Migraine GERD (gastroesophageal reflux disease) Diabetes Cognitive capacity: Alert and orientated x3 Functional capacity: independent ambulation (No issues with balance or dizziness) Patient : No Family History Maternal Grandmother Colon cancer Brother History of heart disease Surgical History (Updated 08/07/25 @ 06:01 by DONN Cordero) S/P carpal tunnel release Hx of colonoscopy History of esophagogastroduodenoscopy (EGD) S/P carpal tunnel release Social History Housing: Apartment Alcohol intake: never Patient Tobacco Use Status: Never used Tobacco e-Cigarette/Vaping Use: Never Used Second Hand Smoke Exposure: No Use of substances other than those prescribed or required for medical reasons: No Advance Directives: No Advance Directives Information Provided: Yes Advance Directives Date on File: 04/25/23 Do you have a plan to hurt others: No Plan Patient : No service: No Current occupational status: disabled Cognitive needs: No Hearing needs: No Vision needs: No Ebola Risk: Travel/Contact With Anyone From Affected Area/s: No Has Patient Experienced Ebola Symptoms: No Meds Allergies Allergy/AdvReac Type Severity Reaction Status Date / Time etanercept (From Enbrel) Allergy Intermediate Rash Verified 08/06/25 21:36 cetirizine Allergy Mild Hives Verified 08/06/25 21:36 dicyclomine (From BENTYL) Allergy Unknown HIVES Verified 08/06/25 21:36 hydrocodone (HYDROCODONE) Allergy Unknown UNKNOWN Verified 08/06/25 21:36 ibuprofen (From MOTRIN) Allergy Unknown HIVES Verified 08/06/25 21:36 Iodinated Contrast Media (IV Allergy Unknown ITCHING Verified 08/06/25 21:36 CONTRAST) minocycline (MINOCYCLINE) Allergy Unknown UNK Verified 08/06/25 21:36 morphine (MORPHINE) Allergy Unknown UNKNOWN Verified 08/06/25 21:36 naproxen (NAPROXEN) Allergy Unknown UNKOWN Verified 08/06/25 21:36 peanut (PEANUT) Allergy Unknown HIVES Verified 08/06/25 21:36 sulfamethoxazole (From Allergy Unknown UNKNOWN Verified 08/06/25 21:36 BACTRIM) tramadol (TRAMADOL) Allergy Unknown UNK Verified 08/06/25 21:36 trimethoprim (From BACTRIM) Allergy Unknown UNKNOWN Verified 08/06/25 21:36 lisinopril Allergy Abdominal Verified 08/06/25 21:36 Pain methotrexate Allergy Joint Pain Verified 08/06/25 21:36 metronidazole (From Flagyl) Allergy Hives Verified 08/06/25 21:36 glipizide AdvReac Intermediate neuropathy Verified 08/06/25 21:36 amitriptyline (AMITRIPTYLINE) AdvReac Mild HYPER Verified 08/06/25 21:36 metoclopramide (From REGLAN) AdvReac Mild HYPER Verified 08/06/25 21:36 latex (LATEX) AdvReac Unknown RASH Verified 08/06/25 21:36 phenylephrine (PHENYLEPHRINE) AdvReac Unknown UNKNOWN Verified 08/06/25 21:36 promethazine (From PHENERGAN) AdvReac Unknown UNK Verified 08/06/25 21:36 glipizide Allergy Mild Rash Uncoded 04/14/25 15:00 SHELLFISH Allergy Unknown HIVES Uncoded 04/14/25 15:00 Physical Exam 2 Vital Signs and Narrative: Vital Signs: Last Vital Signs Temp 97.7 F 08/07/25 05:36 Pulse 79 08/07/25 05:36 Resp 14 08/07/25 05:36 BP 149/71 H 08/07/25 05:36 Pulse Ox 99 08/07/25 05:36 O2 Del Method Room Air 08/07/25 03:13 BMI result Body Mass Index 26.4 Alert and orientated X3, able to give good history. Neuro: CN II-X11 intact, no deficits, visual acuity intact, no facial droop noted, tongue midline EYES: PERRLA, EOM intact, no nystagmus, sclerae nonicteric ENT: hearing intact, no issues with swallowing, uvula midline, lips moist, nares patent no epistaxis Cardiac: S1 S2 RRR, no murmur, no JVD, no edema in Lower ext Pulmonary: lungs clear to auscultation B Abdominal: BS active in all 4 quadrants, no guarding, tenderness, rebounding MSK: strength 5/5 upper and lower extremities : no CVA tenderness no bladder distension Extremities: no edema in lower extremities, PT and DP pulses palpable +2 Psych: mood stable, judgement and insight good Skin: No new rashes or lesions Results Labs 08/06/25 22:02 08/06/25 22:02 Labs: Laboratory Results - last 24 hr 08/06/25 22:02 MCV 83.7 MCH 28.1 MCHC 33.5 RDW 13.1 Plt Count 235 MPV 9.7 Immature Gran % (Auto) 0.1 Neut % (Auto) 61.0 Lymph % (Auto) 25.4 [place] % (Auto) 6.8 Eos % (Auto) 5.8 H Baso % (Auto) 0.9 Lymph # (Auto) 2.0 [place] # (Auto) 0.5 Eos # (Auto) 0.5 H Baso # (Auto) 0.1 Abs Immat Gran (auto) 0.01 Absolute Neuts (auto) 4.7 Absolute Nucleated RBC 0.000 Nucleated RBC % (auto) 0.0 Anion Gap 13 Estim Creat Clear Calc 51.8 Estimated GFR 57 Random Glucose 217 H Calcium 9.5 Total Bilirubin 0.3 AST 18 ALT 16 Alkaline Phosphatase 46 Troponin I High Sens < 2.7 Total Protein 7.2 Albumin 4.4 ECG Attestation: I personally reviewed and interpreted this ECG as follows: (Normal sinus rhythm with QTC of 433) Prior ECG tracings: available for review Imaging Radiologist's Impressions: CT of the head IMPRESSION: Left occipital hypodensity, which could be due to acute ischemic change versus artifact. Consider MRI if indicated. Nonemergent/incidental findings in the report. CTA of the head and neck IMPRESSION: No occlusion or hemodynamically significant stenosis in the carotid or vertebral arteries. No dissection. 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 Request for admission under observation for MRI noting results of CT scan with question of left occipital hypodensity versus artifact. Dizziness with loss of balance/ workup for CVA/TIA CT scan indicates possible left occipital hypodensity versus artifact. CTA negative for carotid or vertebral stenosis or occlusion and dissection Patient normally on atorvastatin, lipid panel pending Hemoglobin A1c pending MRI of the brain pending Neurology consulted Patient does not take aspirin daily No history of stroke or seizure No history of arrhythmia including AFib Continue telemetry Patient has passed bedside swallow and diet has been ordered NIDDM Patient on Mounjaro Also on metformin Sliding scale insulin Diabetic diet No issues with hypoglycemia Hypertension Permissive hypertension allowed Patient normally on losartan, resume once med rec is completed and MRI is read Renal function within normal limits Hyperlipidemia Patient normally on statin Lipid panel pending Cardiac diet BMI stable at 26.4 Rheumatoid arthritis Patient on leflunomide Patient follows with radio interference supervisor as an outpatient Patient currently asymptomatic Osteoarthritis Tylenol PRN DVT prophylaxis: Lovenox Med rec pending Full code status Quality Stroke Does the patient have a stroke diagnosis?: No Reason for No Anti-thrombotic by Day Two: N/A - Med Ordered VTE Prior VTE?: No VTE Risk Level:: Medical - moderate - high VTE Device Contraindication: N/A - Device Ordered VTE Drug Contraindication: N/A - Med Ordered
[2025-08-07 06:16] LABS: Cholesterol 123 mg/dL (<200); HDL Cholesterol 39 mg/dL (>40); Triglycerides 130 mg/dL (<150)
[2025-08-07 06:24] LABS: Hemoglobin A1C 146.9828 umol/L; Total Hemoglobin (HGBA1C) 2814.2574 umol/L
[2025-08-07 07:16] LABS: Glucose, Whole Blood 118 mg/dL (60-115)
[2025-08-07] MEDS: 0.9 % Sodium Chloride Flush 3 ML SYRINGE IVFLUSH ×2 (07:30→15:12)
--- NOTE | 2025-08-07 08:28 | PHA.MEDREC ---
Pharmacy Consult ? Medication Reconciliation Pharmacy has completed the medication reconciliation. Spoke to patient at bedside, noted she only takes one tablet of metformin BID
[2025-08-07 12:23] LABS: Glucose, Whole Blood 118 mg/dL (60-115)
--- NOTE | 2025-08-07 13:03 | PC.NURSE ---
Pt alert and oriented, no new complaints today. Took her meds with no issues. Ate breakfast and lunch. NSR on bedside cardiac exercise specialist. RN made aware of no MRI services today, plan for MRI tomorrow. Pt updated and ok with plan.
--- NOTE | 2025-08-07 15:53 | P.CNNE_ITS ---
History of Present Illness Data of Consult Service Date: 08/07/25 Primary Care Provider: Celso Mathur PA-C [facility] Reason for consult: Abnormal head CT 69 years old woman with past medical history of migraine beside many other problems came to hospital with dizziness and headache. She said that she was not having any cold or flu-like illness fever or chills. Headache was mild and dizziness was unsteadiness type and and started couple of days ago. There was no trauma. She had initial testing done and her CTA revealed a possible left occipital hypodensity prompting this consultation. There was no vascular stenosis. Review of Systems 2 Review of Systems: As per HPI [facility] Past Medical History Medical History (Updated 08/07/25 @ 15:55 by Nenita Dial MD) Dizziness Eczema Dermatitis Neuropathic pain Thrush Vaginitis Vaginal cyst IBS (irritable bowel syndrome) GERD (gastroesophageal reflux disease) Osteoarthritis Rheumatoid arthritis HTN (hypertension) Migraine GERD (gastroesophageal reflux disease) Diabetes Family History Family History Maternal Grandmother Colon cancer Brother History of heart disease Surgical History Surgical History (Updated 08/07/25 @ 06:01 by DONN Cordero) S/P carpal tunnel release Hx of colonoscopy History of esophagogastroduodenoscopy (EGD) S/P carpal tunnel release Social History Social History Housing: Apartment Alcohol intake: never Patient Tobacco Use Status: Never used Tobacco e-Cigarette/Vaping Use: Never Used Second Hand Smoke Exposure: No Use of substances other than those prescribed or required for medical reasons: No Advance Directives: No Advance Directives Information Provided: Yes Advance Directives Date on File: 04/25/23 Do you have a plan to hurt others: No Plan Nutrition Risks: No Nutritional Risk Patient : No service: No Current occupational status: disabled Cognitive needs: No Hearing needs: No Vision needs: No Travel History Ebola Risk: Travel/Contact With Anyone From Affected Area/s: No Has Patient Experienced Ebola Symptoms: No Meds Allergies Allergy/AdvReac Type Severity Reaction Status Date / Time etanercept (From Enbrel) Allergy Intermediate Rash Verified 08/06/25 21:36 cetirizine Allergy Mild Hives Verified 08/06/25 21:36 dicyclomine (From BENTYL) Allergy Unknown HIVES Verified 08/06/25 21:36 hydrocodone (HYDROCODONE) Allergy Unknown UNKNOWN Verified 08/06/25 21:36 ibuprofen (From MOTRIN) Allergy Unknown HIVES Verified 08/06/25 21:36 Iodinated Contrast Media (IV Allergy Unknown ITCHING Verified 08/06/25 21:36 CONTRAST) minocycline (MINOCYCLINE) Allergy Unknown UNK Verified 08/06/25 21:36 morphine (MORPHINE) Allergy Unknown UNKNOWN Verified 08/06/25 21:36 naproxen (NAPROXEN) Allergy Unknown UNKOWN Verified 08/06/25 21:36 peanut (PEANUT) Allergy Unknown HIVES Verified 08/06/25 21:36 sulfamethoxazole (From Allergy Unknown UNKNOWN Verified 08/06/25 21:36 BACTRIM) tramadol (TRAMADOL) Allergy Unknown UNK Verified 08/06/25 21:36 trimethoprim (From BACTRIM) Allergy Unknown UNKNOWN Verified 08/06/25 21:36 lisinopril Allergy Abdominal Verified 08/06/25 21:36 Pain methotrexate Allergy Joint Pain Verified 08/06/25 21:36 metronidazole (From Flagyl) Allergy Hives Verified 08/06/25 21:36 glipizide AdvReac Intermediate neuropathy Verified 08/06/25 21:36 amitriptyline (AMITRIPTYLINE) AdvReac Mild HYPER Verified 08/06/25 21:36 metoclopramide (From REGLAN) AdvReac Mild HYPER Verified 08/06/25 21:36 latex (LATEX) AdvReac Unknown RASH Verified 08/06/25 21:36 phenylephrine (PHENYLEPHRINE) AdvReac Unknown UNKNOWN Verified 08/06/25 21:36 promethazine (From PHENERGAN) AdvReac Unknown UNK Verified 08/06/25 21:36 glipizide Allergy Mild Rash Uncoded 04/14/25 15:00 SHELLFISH Allergy Unknown HIVES Uncoded 04/14/25 15:00 Active Medications: Current Medications Acetaminophen (Acetaminophen 325 Mg Tablet) 650 mg PO Q6H PRN PRN Reason: Pain, Mild 1-3,fever,headache Last Admin: 08/07/25 07:38 Dose: 650 mg Albuterol/Ipratropium (Albuterol/Iprat 2.5/0.5mg 3 Ml Ampul.Neb) 3 ml INHALE Q4H PRN PRN Reason: Shortness of Breath/Wheezing Atorvastatin Calcium (Atorvastatin Calcium 40 Mg Tablet) 40 mg PO DAILY [facility] Last Admin: 08/07/25 12:35 Dose: 40 mg Calcium Carbonate (Calcium Carbonate 750 Mg Tab.Chew) 750 mg PO Q4H PRN PRN Reason: Heartburn Dextrose (Dextrose 50 % 25 Gm/50 Ml Syringe) 25 gm IVPUSH Q15M PRN; Protocol PRN Reason: per Hypoglycemia Standing Ord. Enoxaparin Sodium (Enoxaparin Sodium 40 Mg/0.4 Ml Syringe) 40 mg SUBCUT Q24H [facility] Last Admin: 08/07/25 07:30 Dose: 40 mg Glucose (Glucose Gel 15 Gm Gel..Gram.) 15 gm PO Q15M PRN; Protocol PRN Reason: per Hypoglycemia Standing Ord. Insulin Human Lispro (Insulin Lispro 100 Unit/Ml 3 Ml Vial) 0 unit SUBCUT QIDACHS [facility]; Protocol Last Admin: 08/07/25 12:26 Dose: Not Given Leflunomide (Leflunomide 10 Mg Tablet) 20 mg PO DAILY [facility] Last Admin: 08/07/25 12:59 Dose: 20 mg Losartan Potassium (Losartan Potassium 50 Mg Tablet) 50 mg PO DAILY [facility]; Protocol Last Admin: 08/07/25 12:35 Dose: 50 mg Magnesium Hydroxide (Milk Of Magnesia 30 Ml Oral.Susp) 30 ml PO DAILY PRN PRN Reason: Constipation Meclizine HCl (Meclizine Hcl 12.5 Mg Tablet) 12.5 mg PO Q6H PRN PRN Reason: Vertigo Last Admin: 08/07/25 15:12 Dose: 12.5 mg Melatonin (Melatonin 3 Mg Tablet) 6 mg PO BEDTIME PRN PRN Reason: Insomnia Metformin HCl (Metformin Hcl Er 500 Mg Tab.Er.24h) 500 mg PO BID [facility] Last Admin: 08/07/25 12:35 Dose: 500 mg Omeprazole (Omeprazole 20 Mg Capsule.Dr) 20 mg PO DAILY@0630 [facility] Ondansetron HCl (Ondansetron Hcl 4 Mg/2 Ml Vial) 4 mg IVPUSH Q8H PRN PRN Reason: Nausea and Vomiting Polyethylene Glycol (Polyethylene Glycol 3350 17 Gm Powd.Pack) 17 gm PO DAILY PRN PRN Reason: Constipation Sodium Chloride (0.9 % Sodium Chloride Flush 3 Ml Syringe) 3 ml IVFLUSH QSHIFT CHANI Last Admin: 08/07/25 15:12 Dose: 3 ml Triamcinolone Acetonide (Triamcinolone Acet 0.1 % Oint 15 Gm Tube) 1 appl TOPICAL BID [facility] Home Medications ?Medication ?Instructions ?Recorded ?Confirmed ?Last Taken ?Type diphenhydramine HCl 25 mg tablet 50 mg PO BID PRN Itch ing 08/07/25 08/07/25 Unknown History (Allergy (diphenhydramine)) levocetirizine 5 mg tablet 5 mg PO BEDTIME 08/07/25 Unknown History metformin 500 mg tablet,extended 500 mg PO BID 5 08/07/25 08/06/25 History release 24 hr mometasone 0.1 % topical ointment 1 appl topical BID 1 08/07/25 08/06/25 History rabeprazole 20 mg tablet,delayed 20 mg PO DAILY@0630 1 08/07/25 08/06/25 History release tirzepatide 2.5 mg/0.5 mL 2.5 mg subcut FR 08/07/2508/05/25 History subcutaneous pen injector (Daniel) Physical Exam 2 Vital Signs: Vital Signs: Last Vital Signs Temp 97.7 F 08/07/25 11:51 Pulse 74 08/07/25 11:51 Resp 17 08/07/25 11:51 BP 147/75 H 08/07/25 12:35 Pulse Ox 95 08/07/25 11:51 O2 Del Method Room Air 08/07/25 11:51 BMI result Body Mass Index 26.4 Neuro: Other: She is alert and awake with normal spontaneity of speech. Fluency is normal. Affect is normal. Visual ayala are normal. Face is symmetrical. There was no focal arm or leg weakness. Plantars are flexor. Speech is normal. Results Labs 08/06/25 22:02 08/06/25 22:02 Labs: Short CBC 08/06/25 Range/Units 22:02 WBC 7.8 (4.8-10.8) X10*3/uL Hgb 10.7 L (12.0-16.0) g/dl Hct 31.9 L (37.0-47.0) % Plt Count 235 (160-400) X10*3/uL BMP 08/06/25 22:02 Sodium 139 Potassium 3.9 Chloride 106 Carbon Dioxide 24 BUN 20 H Creatinine 0.97 Calcium 9.5 Liver Function 08/06/25 Range/Units 22:02 Total Bilirubin 0.3 (0.0-1.0) mg/dL AST 18 (5-31) U/L ALT 16 (0-31) U/L Alkaline Phosphatase 46 (39-117) U/L Albumin 4.4 (3.5-5.0) g/dL CTA of brain revealed a mild left posterior cerebral artery area hypodensity probably ischemic in nature and probably chronic Assessment and Plan (1) Dizziness: Status: Acute 69 years old woman with dizziness of unsteadiness type with mild headache without any obvious cold or flu-like illness. Blood pressure was not to high. Initial head CT revealed a possible left occipital hypodensity, which was probably chronic ischemic lesion. Her symptoms probably were related to migraine. As far as CTA is concerned, noncontrast MRI of brain is recommended to clarify. Procedures Date of Service Date of Service: 08/07/25
[2025-08-07 16:05] LABS: Glucose, Whole Blood 125 mg/dL (60-115)
--- NOTE | 2025-08-07 16:50 | PC.NURSE ---
pt had positive effect with meclizine, feeling much better
--- NOTE | 2025-08-07 17:45 | HO.NURTONUR ---
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 Patient also was having a mild headache in the frontal area. Patient right-hand dominant. Patient currently lives alone, is independent with driving and all ADLs and IADLs and at this time denies any falls or injuries related to her symptoms. Patient denies any chest pain, shortness of breath at rest or with exertion. Patient denies any visual changes or loss of visual acuity in any way. Patient denies any loss of smell or sensation. It does have chronic neuropathy in both feet related to her diabetes. Workup in the ED indicated a CTA of the head and neck which indicated no occlusion or hemodynamically significant stenosis in the carotid or vertebral arteries and no dissection. CT of the head identified a left occipital hypodensity which per radiologist could be interpreted as acute ischemic change or versus artifact. This was reviewed by ED provider and the recommendation stands that patient should be admitted for an MRI. Patient currently has no deficits and neurological exam is currently reassuring. Patient is having no issues with swallowing or aphasia. NIH score 0. Patient labs reflect stable anemia with an H&H of 10.7 and 31.9 with no leukocytosis and normal platelet count. Glucose today 217 and A1c is pending. Lipid panel also pending.LFTs within normal limits. PER RN: Admit: R/O possible CVA, dizziness Plan: MRI tomorrow (no services today), pt aware Alert and oriented, independent IV: 20G in left AC, nothing running NSR on registered nurse cardiac telemetry No pain at this time Meclizine helped her dizziness today Diabetic diet, POC checks Pills whole with water No neuro deficits
[2025-08-07 20:16] LABS: Glucose, Whole Blood 168 mg/dL (60-115)
[2025-08-08] VITALS (7 sets, daily range): BP systolic 124–137; BP diastolic 69–79; PULSE 73–86; RESP 16–20; TEMP 36.1–37; O2SAT 95–97
[2025-08-08 06:26] LABS: MANUAL DIFF FLAG NO
[2025-08-08 06:32] LABS: Hematocrit 33.5 % (37.0-47.0); Hemoglobin 11.0 g/dl (12.0-16.0); Imm Gran Abs Auto 0.02 X10*3/uL (0.00-0.03); Imm Gran Pct Auto 0.3 % (0.0-0.4); Lymphocytes Absolute Auto 2.1 X10*3/uL (1.2-4.9); Mean Corpuscular HGB Conc 32.8 g/dl (31.0-35.0); Mean Corpuscular Hemoglobin 27.6 pg (27.0-33.0); Mean Corpuscular Volume 84.0 fL (80.0-98.0); NRBC Abs Auto 0.000 X10*3/uL (0.0-0.012); NRBC Pct Auto 0.0 /100WBC (0.0-0.2); Platelet Count 246 X10*3/uL (160-400); Red Blood Count 3.99 X10*6/uL (4.20-5.50); White Blood Count 6.8 X10*3/uL (4.8-10.8)
[2025-08-08 06:45] LABS: Anion Gap 13 (12-20); Blood Urea Nitrogen 24 mg/dL (9-16); Calcium 9.4 mg/dL (8.4-10.2); Carbon Dioxide 24 mmol/L (22-29); Chloride 106 mmol/L (96-108); Creatinine Clr Calc Pharmacy 59.2; Estimated Glomerular Filt Rate > 60; Potassium 3.8 mmol/L (3.3-5.1); Sodium 139 mmol/L (135-145)
[2025-08-08 07:26] LABS: Glucose, Whole Blood 131 mg/dL (60-115)
[2025-08-08] MEDS: 0.9 % Sodium Chloride Flush 3 ML SYRINGE IVFLUSH ×3 (07:52→20:43)
[2025-08-08] MEDS: Triamcinolone Acet 0.1 % Oint 15 GM TUBE 1 APPL TOPICAL (07:55)
[2025-08-08 11:17] LABS: Glucose, Whole Blood 122 mg/dL (60-115)
--- NOTE | 2025-08-08 16:17 | MHC.CM.PN ---
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
[2025-08-08 16:32] LABS: Glucose, Whole Blood 137 mg/dL (60-115)
[2025-08-08 20:38] LABS: Glucose, Whole Blood 135 mg/dL (60-115)
[2025-08-09 03:50] VITALS: BP 116/74; PULSE 84; RESP 20; TEMP 36.9; O2SAT 96
[2025-08-09 07:39] VITALS: BP 133/71; PULSE 85; RESP 18; TEMP 36.5; O2SAT 98
[2025-08-09 07:40] LABS: Glucose, Whole Blood 121 mg/dL (60-115)
[2025-08-09] MEDS: 0.9 % Sodium Chloride Flush 3 ML SYRINGE IVFLUSH (09:02)
--- NOTE | 2025-08-09 11:25 | P.DS_ITS ---
DS: Providers Provider Date of Service: 08/09/25 Date of admission: 08/07/25 05:26 Date of discharge: 08/09/25 Primary care physician: Celso Mathur PA-C Consults: 08/07/25 06:11 Consult to Neurology Routine Consulting Provider: [facility] Reason for consultation: Rule out CVA, CT scan artifact versus left occipital lesion Has provider been notified: No DS: Diagnosis Discharge Diagnosis (1) Dizziness: Status: Acute DS: Summary Hospital Course Hospital Course: Admission hpi Attending physician on admission: Ever Clayton Chief Complaint: dizziness with loss of balance Patient is a 69-year-old female Anguillan speaking with past medical history DMII on unro with neuropathy, migraine, GERD, hypertension, hyperlipidemia, osteoarthritis, rheumatoid arthritis, carpal tunnel syndrome with bilateral repair, vocal cord nodules with surgery, tubal ligation, ingrown toenails, right shoulder dislocation, IBS C/D presents to the emergency department with complaints of dizziness and unsteady gait that increased over the last 2 days. Patient also was having a mild headache in the frontal area. Patient right-hand dominant. Patient currently lives alone, is independent with driving and all ADLs and IADLs and at this time denies any falls or injuries related to her symptoms. Patient denies any chest pain, shortness of breath at rest or with exertion. Patient denies any visual changes or loss of visual acuity in any way. Patient denies any loss of smell or sensation. It does have chronic neuropathy in both feet related to her diabetes. Workup in the ED indicated a CTA of the head and neck which indicated no occlusion or hemodynamically significant stenosis in the carotid or vertebral arteries and no dissection. CT of the head identified a left occipital hypodensity which per radiologist could be interpreted as acute ischemic change or versus artifact. This was reviewed by ED provider and the recommendation stands that patient should be admitted for an MRI. Patient currently has no deficits and neurological exam is currently reassuring. Patient is having no issues with swallowing or aphasia. NIH score 0. Patient labs reflect stable anemia with an H&H of 10.7 and 31.9 with no leukocytosis and normal platelet count. Glucose today 217 and A1c is pending. Lipid panel also pending.LFTs within normal limits. Hospital course: Patient presented with unsteadiness for 2 days and report feeling dizzy with some headache and fear of falling. CTA of head and neck show no hypodensity in the left occipital lobe measuring 3.4 x 2.6 cm (series 6, image 20). No arrythmia on monitor. Neurology recommended an non contrast MRI which show which showed no acute finding and the CT finding was deemed to be artifact. Patient's symptoms have resolved, ambulating without difficulty and will be discharged home. She may have had a viral illness Time Attestation Discharge Coordination Time (in mins): 40 Quality: Safe Use of Opioids Does Pt have an Active Cancer Diagnosis on the Problem List?: No Quality: Stroke Does the patient have a stroke diagnosis?: No Physical Exam Vital Signs: Vital Signs: Selected Entries 08/09/25 07:39 Temperature 97.7 F Pulse Rate 85 Respiratory Rate 18 Blood Pressure 133/71 Pulse Oximetry 98 Oxygen Delivery Me thod Room Air + Const: Other: General: AO X 3, no acute distress Resp: CTA bilateral CVS: S1,S2,RRR GI: +BS, NT, no distention Skin: No rash Neuro: motor grossly intact Psych: appropriate affect DS: Data Data Completed and Pending Labs on day of discharge: Laboratory Results - last 24 hr 08/07/25 08/07/25 08/07/25 12:20 15:58 19:58 WBC RBC Hgb Hct MCV MCH MCHC RDW Plt Count MPV Immature Gran % (Auto) Neut % (Auto) Lymph % (Auto) [place] % (Auto) Eos % (Auto) Baso % (Auto) Lymph # (Auto) [place] # (Auto) Eos # (Auto) Baso # (Auto) Abs Immat Gran (auto) Absolute Neuts (auto) Absolute Nucleated RBC Nucleated RBC % (auto) Sodium Potassium Chloride Carbon Dioxide Anion Gap BUN Creatinine Estim Creat Clear Calc Estimated GFR POC Glucose 118 H 125 H 168 H Random Glucose Calcium 08/08/25 08/08/25 06:15 07:22 WBC 6.8 RBC 3.99 L Hgb 11.0 L Hct 33.5 L MCV 84.0 MCH 27.6 MCHC 32.8 RDW 12.9 Plt Count 246 MPV 9.6 Immature Gran % (Auto) 0.3 Neut % (Auto) 53.1 Lymph % (Auto) 30.4 [place] % (Auto) 7.8 Eos % (Auto) 7.5 H Baso % (Auto) 0.9 Lymph # (Auto) 2.1 [place] # (Auto) 0.5 Eos # (Auto) 0.5 H Baso # (Auto) 0.1 Abs Immat Gran (auto) 0.02 Absolute Neuts (auto) 3.6 Absolute Nucleated RBC 0.000 Nucleated RBC % (auto) 0.0 Sodium 139 Potassium 3.8 Chloride 106 Carbon Dioxide 24 Anion Gap 13 BUN 24 H Creatinine 0.87 Estim Creat Clear Calc 59.2 Estimated GFR > 60 POC Glucose 131 H Random Glucose 121 H Calcium 9.4 Discharge Plan Discharge Anticipated Discharge Date/Time: 08/09/25 11:31 Patient Disposition: Home, Self-Care Discharge Diagnosis: Non specific dizziness Referrals: Celso Mathur PA-C [Primary Care Provider, Internal Medicine] - 1 Week Discharge Medications: Continued (DME) blood-glucose meter [FreeStyle Coolidge Lite] Kit See Rx Instructions .Route Qty: 1 0RF Rx Instructions: As directed (DME) FreeStyle Test Strip See Rx Instructions .Route Qty: 100 1RF Rx Instructions: As directed (DME) lancets [FreeStyle Lancets] 28 gauge misc See Rx Instructions .ROUTE .MEDSUPPLY Qty: 100 3RF Rx Instructions: As directed (DME) Ultra-Light Rollator Misc See Rx Instructions .Route Qty: 1 0RF Rx Instructions: As directed losartan 50 mg tablet 50 mg PO DAILY 90 Days Qty: 90 2RF atorvastatin 40 mg tablet 40 mg PO DAILY Qty: 90 1RF leflunomide 20 mg tablet 20 mg PO DAILY Qty: 90 0RF levocetirizine 5 mg tablet 5 mg PO BEDTIME metformin 500 mg tablet extended release 24 hr 500 mg PO BID rabeprazole 20 mg tablet,delayed release (DR/EC) 20 mg PO DAILY@0630 diphenhydramine HCl [Allergy (diphenhydramine)] 25 mg tablet 50 mg PO BID PRN (Reason: Itching) Rx Instructions: Diphenhydramine 50 mg PO, 1 hour before contrast media injection for CAT. mometasone 0.1 % ointment 1 appl topical BID Rx Instructions: to back of leg/thigh Mounjaro 2.5 mg/0.5 mL pen injector 2.5 mg subcut FR Rx Instructions: for 4 weeks (DME) blood pressure monitor Kit See Rx Instructions .Route Qty: 1 0RF Rx Instructions: As directed Discharge Orders: Discharge Order (Routine); Ordered 08/09/25 Ordered By: Benja Rincon Diet: Advance to usual diet Activity on Discharge: As tolerated Stand Alone Forms: Patient Portal Discharge page Print Language: Anguillan Care Plan Goals: recovery from dizziness Health Concerns: recovery from dizziness Plan of Treatment: rest, drink plenty of fluid, follow up with your doctor in a week, call for appointment Assessment: see above
[2025-08-09 11:42] LABS: Glucose, Whole Blood 108 mg/dL (60-115)
--- NOTE | 2025-08-09 11:45 | MHC.CM.PN ---
PT IS MEDICALLY CLEARED FOR DISCHARGE HOME SELF-CARE, SHE WILL ARRANGE HER OWN TRANSPORT HOME TODAY.
[2025-08-09 12:00] VITALS: BP 126/79; PULSE 87; RESP 18; TEMP 36.8; O2SAT 94
== END 2025-08-09 12:13 | disposition home or self-care (01) ==
LOC: HO.ED 08-07 05:21 → HO.EDOVER 08-07 05:44 → HO.IMC 08-07 17:08
PROVIDERS: Nurse Practitioner Family; Admitting Provider Internal Medicine; Emergency Provider Emergency Medicine; PCP Physician Assistant; Visit Provider Internal Medicine
DX: R42 Dizziness and giddiness (principal); R26.81 Unsteadiness on feet; I10 Essential (primary) hypertension; E11.40 Type 2 diabetes mellitus with diabetic neuropathy, unspecified; E78.5 Hyperlipidemia, unspecified; M06.9 Rheumatoid arthritis, unspecified; Z79.85 Long-term (current) use of injectable non-insulin antidiabetic drugs; Z79.899 Other long term (current) drug therapy
CPT/HCPCS: 36415; 70496; 70498; 70551; 80048; 80053; 80061; 82947; 83036; 84484; 85025; 93005; 96372; 96374; 97161; 99222; 99285; J1200; J1650; Q9967

== ENCOUNTER → 2025-08-06 21:38 | Outpatient (BNV) | payer OTHER, SELFPAY | PROVIDERS: Admitting Provider Internal Medicine; Emergency Provider Emergency Medicine; PCP Physician Assistant; Visit Provider Internal Medicine | DX: R42 Dizziness and giddiness (principal) | CPT/HCPCS: 93010 ==

== ENCOUNTER → 2025-08-07 01:02 | Outpatient (BNV) | payer OTHER, SELFPAY | PROVIDERS: Emergency Provider Emergency Medicine; PCP Physician Assistant; Visit Provider Radiology Diagnostic Radiology | DX: R42 Dizziness and giddiness (principal) | CPT/HCPCS: 70496; 70498 ==

== ENCOUNTER 2025-08-07 05:26 | Outpatient (BNV) | payer OTHER, SELFPAY | END 2025-08-08 17:41 | PROVIDERS: Admitting Provider Internal Medicine; Emergency Provider Emergency Medicine; PCP Physician Assistant; Visit Provider Radiology Diagnostic Radiology | DX: Z03.89 Encounter for observation for other suspected diseases and conditions ruled out (principal) | CPT/HCPCS: 70551 ==

== ENCOUNTER → 2025-08-07 05:26 | Outpatient (BNV) | payer OTHER, SELFPAY | PROVIDERS: Admitting Provider Internal Medicine; Emergency Provider Emergency Medicine; PCP Physician Assistant; Visit Provider Psychiatry & Neurology Neurology | DX: R42 Dizziness and giddiness (principal) | CPT/HCPCS: 99222 ==

== ENCOUNTER → 2025-08-07 05:26 | Outpatient (BNV) | payer OTHER, SELFPAY | PROVIDERS: Admitting Provider Internal Medicine; Emergency Provider Emergency Medicine; PCP Physician Assistant; Visit Provider Nurse Practitioner Family | DX: R42 Dizziness and giddiness (principal) | CPT/HCPCS: 99239 ==

== ENCOUNTER 2025-08-15 07:02 | Outpatient (REF) | payer OTHER, SELFPAY ==
--- OUTSIDE RECORDS SUMMARY | 2025-08-15 07:07 | XMS_ITS | Clinical Summary ---
Author Organization [facility] Address [address] [place] [address] Phone Care Team Providers Care Driver Name Role Phone Celso Mathur Primary Care [...] COLONOSCOPY 1999 RSV VACCINE (1 - Risk 50-74 years 1-dose series) 2004 OSTEOPOROSIS SCREENING INITIAL (ONE-TIME) 2019 INFLUENZA VACCINE [...] topic Medical Devices Not on file Insurance [facility] MEDIC[facility] REPLACEMENT [facility] [id number] [facility] MED[facility] RE[facility] MEDICARE REPLACEMENT [facility] MED[facility] REPLACEMENT [facility] MEDICARE REPLACEMENT Care Teams Driver Relationship Specialty Start Date End Date Celso Mathur PA [address] [place] [id number] PCP - General Physician Manager Quantitative 03/31/25 Additional Source Comments The information contained in this document represents components of the legal health record. It is not the complete legal health record.[facility]
--- OUTSIDE RECORDS SUMMARY | 2025-08-15 07:07 | XMS_ITS | Data Portability ---
Author Organization [place] - [facility], Allergy Address [address] [place] [id number] Care Team Providers Care Coffee Roaster Helper Name Role Phone LORENZO GROSSMAN Referring Provider [phone] Assessment No assessment recorded. Plan of Treatment [...] and Address Organization Details Recorded Time Dysphonia [id number] Active 2015 Hoarsenes s; Note: Date Diagnosed : 03/18/2016 2:56 PM (R49.0) Not Available [facility] 4 02:44:16 Polyp of vocal cord or larynx 737785045 Active 2015 Polyp of vocal cord and larynx; Note: Date Diagnosed : 03/18/2016 2:56 PM (J38.1) Not Available [facility] 4 02:44:17 Follow-up visit Active 2016 Medical surveilla nce following completed treatment ; Note: Date Diagnosed : 01/08/2017 1:44 PM (Z09) Not Available [facility] 4 02:44:21 Foreign body in left ear [id number] 315906 Active 2018 Foreign body in left ear, initial encounter ; Note: Date Diagnosed : 9 1:46 PM (T16.2XXA ) Not Available [facility] 4 02:44:17 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 - [facility] 14:52:34 Problem Notes None recorded. Procedures Surgical History Date Name Laterality Status Provider Name and Address Organization Details Recorded Time 02/14/2025 NasalEndos copy_DP completed OSWALDO GONZALEZ MD [address] [facility],[address] [address], [place], [address], [place] - [facility] 02/14/2025 14:46:15 Imaging Results None recorded. Procedure Notes None recorded. Medical Equipment None Reported. Allergies Allergen ID Allergen Name Allergen Category Reaction Reaction Severity Criticality Documentation Date Start Date Code Code System Note Provider Name and Address Organization Details Recorded Time 357652 Bactrim medicatio n Not available Not available Not available 02/14/2025 47372 9 RxNorm Ginnette Rancitell i null, [place] - [facility] 14:18:15 678491 Reglan medicatio n Not available Not available Not available 02/14/2025 9230 RxNorm Ginnette Rancitell i issac, [place] - [facility] 14:20:38 312940 dicyclomi ne medicatio n Not available Not available Not available 02/14/2025 3361 RxNorm Ginnette Rancitell i [place], [place] [facility] 14:21:11 057742 amitripty line medicatio n Not available Not available Not available 02/14/2025 704 RxNorm Ginnette Rancitell i null, [place] - [facility] 14:21:21 895497 latex environme nt,medica tion Not available Not available Not available 02/14/2025 18466 91 RxNorm Ginnette Rancitell i null, [place] - [facility] 5 14:21:33 841121 naproxen medicatio n Not available Not available Not available 02/14/2025 7258 RxNorm Ginnette Rancitell i [place], [place] [facility] 5 14:21:48 320835 hydrocodo ne Not available Not available Not available Not available 02/14/2025 5489 RxNorm Ginnette Rancitell i [place], [place] [facility] 5 14:22:02 305775 tramadol medicatio n Not available Not available Not available 02/14/2025 59871 RxNorm Ginnette Rancitell i [place], [place] [facility] 5 14:22:11 19738 ibuprofen medicatio n other Not available Not available 03/16/2024 5640 RxNorm React ion: unkno wn, unspe cifie d;; Not Available [facility] 4 00:58:51 08378 diphenhyd ramine hydrochlo ride medicatio n other Not available Not available 03/16/2024 1362 RxNorm React ion: unkno wn, unspe cifie d;; Not Available [facility] 4 00:58:52 30323 promethaz ine hydrochlo ride medicatio n other Not available Not available 03/16/2024 39068 5 RxNorm React ion: unkno wn, unspe cifie d;; Not Available [facility] 4 00:59:01 21938 Substance with sulfonami de structure and antibacte rial mechanism of action (substanc e) medicatio n other Not available Not available 03/16/2024 56411 8003 SNOMED React ion: unkno wn, unspe cifie d;; Not Available [facility] 4 00:59:03 Medications Name Sig [...] mg tablet 2015 active Medicatio n ID: [id number] Du ration Value: 30 Brand Name: metformin [...] release 24 hr active Medicatio n ID: [id number] Du ration Value: 90 Brand Name: glipizide Send Method: E-Prescri bed Subs Allowed: subs OK Medica tionGener icName: glipizide Not Available Not Available Not Available prednisone 20 mg tablet TAKE 1 TABLET BY MOUTH EVERY DAY FOR 7 DAYS active Not Available Not Available No t Available lovastatin 40 mg tablet 2015 active Medicatio n ID: [id number] Du ration Value: 30 Brand Name: lovastati [...] ayed release 2015 active Medicatio n ID: [id number] Du ration Value: 30 Brand Name: aspirin [...] 50 mg tablet active Medicatio n ID: [id number] Du ration Value: 90 Brand Name: pyridoxin e (vitamin B6) Send Method: E-Prescri bed Subs Allowed: subs OK Medica tionGener icName: pyridoxin e (vitamin B6) Not Available Not Available Not Available omeprazole 20 mg capsule,de layed release 2015 active Medicatio n ID: [id number] Du ration Value: 30 Brand Name: omeprazol e Send Method: E-Prescri bed Subs Allowed: subs OK Medica tionGener icName: omeprazol e Not Available Not Available Not Available folic acid 1 mg tablet TAKE 1 TABLET BY MOUTH DAILY active Not Available Not Available No t Available alcohol swabs 2015 active Medicatio n ID: [id number] Du ration Value: 50 Brand Name: alcohol [...] gram/dose oral powder active Medicatio n ID: [id number] Du ration Value: 21 Brand Name: Purelax [...] Updated DateTime 02/14/2025 162.56 cm 25.9 kg/m2 85990.45 g Eduardo Kapadia [place] - [facility] 02/14/2025 14:13:11 Social History None recorded. Functional Status None recorded. Mental Status None recorded. Family History Nothing Reported. Medical History Condition Response Migraines Y Arthritis Y Hypertension Y Depression Y Gynecological HistoryNo gynecological history recorded. Obstetrics History GPAL:G 0 P 0 0 0 0 Past Encounters Encounter ID Performer Location Encounter Start Date Encounter Closed Date Diagnosis/Indication Diagnosis SNOMED-CT Code Diagnosis ICD10 Code Diagnosis IMO Codes Diagnosis Note [id number] OSWALDO GONZALEZ MD [facility] on [address] [place] [phone] 02/14/2025 13:35:28 02/14/2025 16:52:34 Polyp of nasal cavity and/or nasal sinus 979887976 J33.9 Exam and nasal endoscopy were negative for polyps. I gave reassuranc e. Nasal vestibulitis 30924 000 J34.89 She is actually pointing to [...] [place] Member ID Guarantor Name 02/24/2025 1 [facility] - DOS ON OR AFTER 2023 - MEDICARE ADVANTAGE [place] (MEDICARE REPLACEMENT/ADV ANTAGE - PPO) Roslyn Jorgensen Rosalba [id number] Roslyn Jorgensen Rosalba Notes Date Note Type [...] Dr. Nicole in 2016. OSWALDO GONZALEZ MD [address] [place] [address], [phone], [facility] - [facility] 02/14/2025 14:53:09 OBGyn Episode No OBEpisode recorded.
--- OUTSIDE RECORDS SUMMARY | 2025-08-15 07:08 | XMS_ITS | Clinical Summary ---
Author Organization [facility] [address] [facility] Address [address] [place] [address] Phone Care Team Providers Care Insole Toe Snipping Machine Operator Name Role Phone Celso Mathur Primary Care Provider Allergies Active Allergy Reactions Criticality Noted Date Comments Amitriptyline 08/09/2020 [place] hyper Dicyclomine Hives,Rash 07/14/2014 Dicyclomine Hydrocodone-Acetaminophen Hives [...] 1 (one) time each day. 4 Active [employer] Ultra Test test strip USE TO TEST [...] 2 diabetes mellitus wit h renal complication ([facility]/HCC V24, [facility]/HCC V28) 09/20/2024 COVID-19 virus infection 01/31/2021 Overview (09/20/2024): 11/2020 per patient Abnormal mammogram of left breast 12/26/2020 Overview (09/20/2024): 12/2020, ordering diagnostic mammo and u/s Anxiety 08/09/2020 Aortic atherosclerosis ([facility] V24) 08/09/2020 Carpal tunnel syndrome 08/09/2020 Overview (09/20/2024): Bilateral, 05/2019 Left CTR Cataract 08/09/2020 Overview (09/20/2024): Bilateral Cholelithiasis 08/09/2020 Diabetic neuropathy ([facility] V24, [facility] V28) 1 Overview (09/20/2024): Feet Glaucoma suspect 08/09/2020 Overview (09/20/2024): Left eye Hypertension 08/09/2020 Lactose intolerance 08/09/2020 Microalbuminuria 08/09/2020 Migraines 08/09/2020 Overview (09/20/2024): episodic Nephrolithiasis 08/09/2020 Seasonal allergies 08/09/2020 Slow transit constipation 08/09/2020 Type 2 diabetes mellitus wit h cataract ([facility] V24, [facility] V28) 08/09/2020 Type 2 diabetes mellitus wit h neurologic complication ([facility] V24, [facility] V28) 08/09/2020 Immunizations Immunization [...] 2 diabetes mellitus wit h renal complication ([facility] V24, [facility] V28) DX:Type 2 diabetes mellitus with renal complication (HCC) Microalbuminuria 08/09/2020 DX:Microalbumin uria Nephrolithiasis 08/09/2020 DX:Nephrolithias is Anxiety 08/09/2020 DX:Anxiety Lactose intolerance 08/09/2020 DX:Lactose i ntolerance Cholelithiasis 08/09/2020 DX:Cholelithiasi s Diabetic neuropathy ([facility] V24, [facility] V28) 08/09/2020 DX:Diabetic neuropathy ([facility]) ; COMMENT: Feet Type 2 diabetes mellitus wit h neurologic complication ([facility] V24, [facility] V28) 08/09/2020 DX:Type 2 diabetes mellitus with neurologic complication (HCC) Seasonal allergies 08/09/2020 DX:Seasonal a llergies Slow transit constipation 08/09/2020 DX:Slo w transit constipation Aortic atherosclerosis ([facility] V24) 08/09/2020 DX:Aortic atherosclerosis (HCC) Cataract 08/09/2020 DX:Cataract; COM MENT: Bilateral Type 2 diabetes mellitus wit h cataract ([facility] V24, [facility] V28) 08/09/2020 DX:Type 2 [...] for your loved ones. For example, child development consultant or elderly care for an older adult? [...] BMP Blood Test (10/30/2020) Pathologist [facility] Annual BMP Blood Test Abstracted [facility] Provider HEALTH MAINTENANCE Final Result * (ABNORMAL) Hemoglobin A1c (10/30/2020) [facility] Hemoglobin A1C 7.6(A) <=6.5 % Blood Venous blood specimen / Unknown [facility] Provider LAB BLOOD ORDERABLES Grace l Result * Lipid panel (07/28/2020) [facility] LDL/HDL Ratio 3 0 - 4 Triglycerides 123 0 - 150 mg/dL Cholesterol 135 0 - 200 mg/dL HDL 50 >=40 mg/dL LDL Cholesterol 61 0 - 100 mg/dL Blood Venous blood specimen / Unknown [facility] Provider LAB BLOOD ORDERABLES Grace l Result from Last 3 Months or Most Recently Relevant to Health Maintenance Insurance [facility] Member Subscriber Plan / Payer ( fective 2019-Present) Name:Roslyn Navarrete Relation to Subscriber:Self Name:Roslyn Navarrete Payer ID:[id number] Group ID:[id number] Type:Not on file Address: [address] [address] [facility] MEDICARE Member Subscriber Plan / Payer (Ef fective 2019-Present) Name:Roslyn Navarrete Relation to Subscriber:Self Name:Roslyn Navarrete Payer ID:[id number] Group ID:[id number] Type:Not on file Address: [place] [address] [address] Care Teams Insole Toe Snipping Machine Operator Relationship Specialty Start Date End Date Celso Mathur PA PCP - General Physician Mine Engineer 09/17/24
[2025-08-15 07:46] LABS: Appearance Urine Clear; Glucose Urine UA Negative (Negative); PH 6.5 (5.0-9.0); Specific Gravity - Urine 1.010 (1.005-1.025)
== END 2025-08-15 07:03 | disposition home or self-care (01) ==
LOC: HO.LAB 07:02
PROVIDERS: PCP Physician Assistant; Visit Provider Physician Assistant
DX: R30.0 Dysuria (principal); R35.0 Frequency of micturition
CPT/HCPCS: 81003

== ENCOUNTER 2025-09-14 13:44 | Outpatient (AMB) | payer OTHER, SELFPAY ==
--- NOTE | 2025-09-14 13:55 | A.OFFVIS_ITS ---
Vital Signs 09/14/25 14:03 Height 5 ft 4 in Weight 154 lb BMI 26.4 Intake Visit Reasons: Bilateral foot numbness, Bilateral knee pain Intake Note: Roslyn is a 70 year old female who presents with complaints of bilateral foot numbness as well as bilateral knee pains. The patient states that she has had numbness and tingling in both of her feet for the last few years. She is a diabetic. She has not been evaluated for diabetic neuropathy. She describes her knee pains as sharp in nature. She has tried Tylenol, anti-inflammatory medicines and physical therapy exercises which gave her minimal relief. Allergies etanercept (From Enbrel) Allergy (Intermediate, Verified 09/14/25 14:03) Rash cetirizine Allergy (Mild, Verified 09/14/25 14:03) Hives dicyclomine (From BENTYL) Allergy (Unknown, Verified 09/14/25 14:03) HIVES hydrocodone (HYDROCODONE) Allergy (Unknown, Verified 09/14/25 14:03) UNKNOWN ibuprofen (From MOTRIN) Allergy (Unknown, Verified 09/14/25 14:03) HIVES Iodinated Contrast Media (IV CONTRAST) Allergy (Unknown, Verified 09/14/25 14:03) ITCHING minocycline (MINOCYCLINE) Allergy (Unknown, Verified 09/14/25 14:03) UNK morphine (MORPHINE) Allergy (Unknown, Verified 09/14/25 14:03) UNKNOWN naproxen (NAPROXEN) Allergy (Unknown, Verified 09/14/25 14:03) UNKOWN peanut (PEANUT) Allergy (Unknown, Verified 09/14/25 14:03) HIVES sulfamethoxazole (From BACTRIM) Allergy (Unknown, Verified 09/14/25 14:03) UNKNOWN tramadol (TRAMADOL) Allergy (Unknown, Verified 09/14/25 14:03) UNK trimethoprim (From BACTRIM) Allergy (Unknown, Verified 09/14/25 14:03) UNKNOWN lisinopril Allergy (Verified 09/14/25 14:03) Abdominal Pain methotrexate Allergy (Verified 09/14/25 14:03) Joint Pain metronidazole (From Flagyl) Allergy (Verified 09/14/25 14:03) Hives glipizide Adverse Reaction (Intermediate, Verified 09/14/25 14:03) neuropathy amitriptyline (AMITRIPTYLINE) Adverse Reaction (Mild, Verified 09/14/25 14:03) HYPER metoclopramide (From REGLAN) Adverse Reaction (Mild, Verified 09/14/25 14:03) HYPER latex (LATEX) Adverse Reaction (Unknown, Verified 09/14/25 14:03) RASH phenylephrine (PHENYLEPHRINE) Adverse Reaction (Unknown, Verified 09/14/25 14:03) UNKNOWN promethazine (From PHENERGAN) Adverse Reaction (Unknown, Verified 09/14/25 14:03) UNK glipizide Allergy (Mild, Uncoded 09/14/25 14:03) Rash SHELLFISH Allergy (Unknown, Uncoded 09/14/25 14:03) HIVES Medication List - Last Reconciled 09/15/25 by Kam Crowell MD atorvastatin 40 mg PO DAILY blood pressure monitor As directed blood sugar diagnostic (FreeStyle Test strips) As directed blood-glucose meter (CoCollageStyle Hamilton Lite kit) As directed diphenhydramine HCl (Allergy (diphenhydramine)) 50 mg PO BID PRN lancets (FreeStyle Lancets) As directed leflunomide 20 mg PO DAILY levocetirizine 5 mg PO BEDTIME losartan 50 mg PO DAILY 90 days metformin ER 500 mg PO BID mometasone 0.1% 1 appl topical BID rabeprazole 20 mg PO DAILY@0630 tirzepatide (Mounjaro) 2.5 mg subcut FR walker (Ultra-Light Rollator misc) As directed [facility] Medical History (Updated 09/15/25 @ 07:41 by Kam Crowell MD) Dizziness Eczema Dermatitis Neuropathic pain Thrush Vaginitis Vaginal cyst IBS (irritable bowel syndrome) GERD (gastroesophageal reflux disease) Osteoarthritis Rheumatoid arthritis HTN (hypertension) Migraine GERD (gastroesophageal reflux disease) Diabetes Surgical History S/P carpal tunnel release Hx of colonoscopy History of esophagogastroduodenoscopy (EGD) S/P carpal tunnel release Family History Maternal Grandmother Colon cancer Brother History of heart disease Social History Household Members: None Housing: Apartment Do you presently have visiting nurse or other home services: Yes Alcohol intake: never Patient Tobacco Use Status: Never used Tobacco e-Cigarette/Vaping Use: Never Used Second Hand Smoke Exposure: No Advance Directives Date on File: 04/25/23 service: No Current occupational status: disabled Cognitive needs: No Hearing needs: No Vision needs: No Physical Exam Vital Signs: BMI result Body Mass Index 26.4 Extrem Other: Bilateral knee examination shows minimal effusions, palpable crepitus with range of motion, pain with range of motion, no instability Office Procedures AMB Joint Injection/Aspiration Joint Injection/Aspiration Primary Site: Left Knee Injected: 40 mg of, DepoMedrol, with 4 mL of and 1% plain Lidocaine Procedure: The patient tolerated the procedure well Coding 31105 - Large joint Procedure code (CPT) selection complete AMB Joint Injection/Aspiration Joint Injection/Aspiration Primary Site: Right Knee Prep: site was prepped using aseptic technique Injected: 40 mg of, DepoMedrol, with 4 mL of and 1% plain Lidocaine Procedure: The patient tolerated the procedure well Coding 49755 - Large joint Procedure code (CPT) selection complete Results Reviewed Results Reviewed: X-rays of the patient's bilateral knees taken previously show joint space narrowing, subchondral sclerosis, no acute bony abnormalities Assessment & Plan Assessment & Plan (1) Diabetic neuropathy: Code(s): E11.40 - Type 2 diabetes mellitus with diabetic neuropathy, unspecified Category: Medical (2) Arthritis of left knee: Code(s): M17.12 - Unilateral primary osteoarthritis, left knee Category: Medical (3) Arthritis of right knee: Code(s): M17.11 - Unilateral primary osteoarthritis, right knee Category: Medical (4) Pain in both knees: Code(s): M25.561 - Pain in right knee; M25.562 - Pain in left knee Plan Ms. Rosalba Willoughby presents with bilateral knee pains due to osteoarthritis. The risks and benefits of bilateral knee cortisone injections were discussed at length with the patient. The patient wished to proceed. She tolerated the injections well. She will continue with her activity modifications. I will refer her to our neurology department for further evaluation of her diabetic neuropathy. She will contact me prior to her follow-up appointment should any questions or concerns arise. Feel free to call me at any time should questions regarding her orthopedic management arise. I spent 21 minutes in reviewing the patient's records and imaging studies, seeing the patient and documenting in the medical record. Orders: Orders AMB Joint Injection/Aspiration 09/14/25 M17.12 - Unilateral primary osteoarthr itis, left knee AMB Joint Injection/Aspiration 09/14/25 M17.11 - Unilateral primary osteoarthritis, right knee Referrals Neurology Referral E11.40 - Type 2 diabetes mellitus with diabetic neuropathy, unspecified Coding Level of Care Code Est Pt Level 3 (35465) Complex EM visit Add On G2211 Diagnoses Diabetic neuropathy E11.40 Arthritis of left knee M17.12 Arthritis of right knee M17.11 Pain in both knees M25.561; M25.562 CPT Codes Coding - 58369 Large joint: 28255 - Large joint ([id number]) Coding - 53073 Large joint: 04963 - Large joint ([id number])
[2025-09-14 14:03] VITALS: BMI 26.4
--- OUTSIDE RECORDS SUMMARY | 2025-09-14 16:48 | XMS_ITS | Clinical Summary ---
Author Organization [facility] Address [address] [place] [address] Phone Care Team Providers Care Hospital Receptionist Name Role Phone Celso Mathur Primary Care [...] patient's age to complete this topic IPV VACCINES Aged Out No longer eligi ble based on patient's age to complete this topic MENINGOCOCCAL VACCINES (ACWY) Aged Out No longer eligible based on patient's age to complete this topic MENINGOCOCCAL VACCINES (B) Aged Out N o longer eligible based on patient's age to complete this topic Medical Devices Not on file Insurance [facility] MEDICARE REPLACEMENT [facility] MEDIC[facility] REPLACEMENT [facility] [place] MED[facility] [place] [facility]ICARE REPLACEMENT [facility] MEDICARE REPLACEMENT Care Teams Hospital Receptionist Relationship Specialty Start Date End Date Celso Mathur PA [facility] [place] [address] PCP - General Physician Catalyst Plant Supervisor 03/31/25 Additional Source Comments The information contained in this document represents components of the legal health record. It is not the complete legal health record.[facility]
--- OUTSIDE RECORDS SUMMARY | 2025-09-14 16:48 | XMS_ITS | Data Portability ---
Author Organization [place] [facility], Allergy Address [address] [place] [address] Care Team Providers Care Route Sales Driver Name Role Phone LORENZO GROSSMAN Referring Provider [phone] Assessment No assessment recorded. Plan of Treatment [...] and Address Organization Details Recorded Time Dysphonia [id number] Active 2015 Hoarsenes s; Note: Date Diagnosed : 03/18/2016 2:56 PM (R49.0) Not Available [facility] 4 02:44:16 Polyp of vocal cord or larynx 153977124 Active 2015 Polyp of vocal cord and larynx; Note: Date Diagnosed : 03/18/2016 2:56 PM (J38.1) Not Available [facility] 4 02:44:17 Follow-up visit Active 2016 Medical surveilla nce following completed treatment ; Note: Date Diagnosed : 01/08/2017 1:44 PM (Z09) Not Available [facility] 4 02:44:21 Foreign body in left ear [id number] 164809 Active 2018 Foreign body in left ear, initial encounter ; Note: Date Diagnosed : 9 1:46 PM (T16.2XXA ) Not Available [facility] 4 02:44:17 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 - [facility] 14:52:34 Problem Notes None recorded. Procedures Surgical History Date Name Laterality Status Provider Name and Address Organization Details Recorded Time 02/14/2025 NasalEndos copy_DP completed OSWALDO GONZALEZ MD [address] [facility],[address] [address], [place], [address], [place] [facility] 02/14/2025 14:46:15 Imaging Results None recorded. Procedure Notes None recorded. Medical Equipment None Reported. Allergies Allergen ID Allergen Name Allergen Category Reaction Reaction Severity Criticality Documentation Date Start Date Code Code System Note Provider Name and Address Organization Details Recorded Time 400274 Bactrim medicatio n Not available Not available Not available 02/14/2025 33828 9 RxNorm Ginnette Rancitell i null, [place] [facility] 14:18:15 656162 Reglan medicatio n Not available Not available Not available 02/14/2025 9230 RxNorm Ginnette Rancitell i issac, [place] [facility] 14:20:38 743502 dicyclomi ne medicatio n Not available Not available Not available 02/14/2025 3361 RxNorm Ginnette Rancitell i null, [place] [facility] 14:21:11 484248 amitripty line medicatio n Not available Not available Not available 02/14/2025 704 RxNorm Ginnette Rancitell i null, [place] [facility] 14:21:21 822931 latex environme nt,medica tion Not available Not available Not available 02/14/2025 11424 91 RxNorm Ginnette Rancitell i null, [place] [facility] 5 14:21:33 124498 naproxen medicatio n Not available Not available Not available 02/14/2025 7258 RxNorm Ginnette Rancitell i null, [place] [facility] 5 14:21:48 290464 hydrocodo ne Not available Not available Not available Not available 02/14/2025 5489 RxNorm Ginnette Rancitell i null, [place] [facility] 5 14:22:02 513895 tramadol medicatio n Not available Not available Not available 02/14/2025 66936 RxNorm Ginnette Rancitell i null, [place] [facility] 5 14:22:11 12008 ibuprofen medicatio n other Not available Not available 03/16/2024 5640 RxNorm React ion: unkno wn, unspe cifie d;; Not Available [facility] 4 00:58:51 97894 diphenhyd ramine hydrochlo ride medicatio n other Not available Not available 03/16/2024 1362 RxNorm React ion: unkno wn, unspe cifie d;; Not Available [facility] 4 00:58:52 69258 promethaz ine hydrochlo ride medicatio n other Not available Not available 03/16/2024 22766 5 RxNorm React ion: unkno wn, unspe cifie d;; Not Available [facility] 4 00:59:01 91831 Substance with sulfonami de structure and antibacte rial mechanism of action (substanc e) medicatio n other Not available Not available 03/16/2024 53451 8003 SNOMED React ion: unkno wn, unspe cifie d;; Not Available [facility] 4 00:59:03 Medications Name Sig Start Date [...] mg tablet 2015 active Medicatio n ID: [id number] Du ration Value: 30 Brand Name: metformin [...] release 24 hr active Medicatio n ID: [id number] Du ration Value: 90 Brand Name: glipizide Send Method: E-Prescri bed Subs Allowed: subs OK Medica tionGener icName: glipizide Not Available Not Available Not Available prednisone 20 mg tablet TAKE 1 TABLET BY MOUTH EVERY DAY FOR 7 DAYS active Not Available Not Available No t Available lovastatin 40 mg tablet 2015 active Medicatio n ID: [id number] Du ration Value: 30 Brand Name: lovastati [...] ayed release 2015 active Medicatio n ID: [id number] Du ration Value: 30 Brand Name: aspirin [...] 50 mg tablet active Medicatio n ID: [id number] Du ration Value: 90 Brand Name: pyridoxin e (vitamin B6) Send Method: E-Prescri bed Subs Allowed: subs OK Medica tionGener icName: pyridoxin e (vitamin B6) Not Available Not Available Not Available omeprazole 20 mg capsule,de layed release 2015 active Medicatio n ID: [id number] Du ration Value: 30 Brand Name: omeprazol e Send Method: E-Prescri bed Subs Allowed: subs OK Medica tionGener icName: omeprazol e Not Available Not Available Not Available folic acid 1 mg tablet TAKE 1 TABLET BY MOUTH DAILY active Not Available Not Available No t Available alcohol swabs 2015 active Medicatio n ID: [id number] Du ration Value: 50 Brand Name: alcohol [...] gram/dose oral powder active Medicatio n ID: [id number] Du ration Value: 21 Brand Name: Purelax [...] Updated DateTime 02/14/2025 162.56 cm 25.9 kg/m2 27531.45 g Eduardo Kapadia [place] [facility] 02/14/2025 14:13:11 Social History None recorded. [...] ICD10 Code Diagnosis IMO Codes Diagnosis Note [id number] OSWALDO GONZALEZ MD [facility] on [address] [place] [phone] 02/14/2025 13:35:28 02/14/2025 16:52:34 Polyp of nasal cavity and/or nasal sinus 782017372 J33.9 Exam and nasal endoscopy were negative for polyps. I gave reassuranc e. Nasal vestibulitis 19956 000 J34.89 She is actually pointing to [...] [place] Member ID Guarantor Name 02/24/2025 1 [facility] - DOS ON OR AFTER 2023 - MEDICARE ADVANTAGE [place] (MEDICARE REPLACEMENT/ADV ANTAGE - PPO) Roslyn Jorgensen Rosalba [id number] Roslyn Jorgensen Rosalba Notes Date Note Type [...] Dr. Nicole in 2016. OSWALDO GONZALEZ MD [address] [place] [address], [phone], [facility] - [facility] 02/14/2025 14:53:09 OBGyn Episode No OBEpisode recorded.
--- OUTSIDE RECORDS SUMMARY | 2025-09-14 16:48 | XMS_ITS | Clinical Summary ---
Author Organization [facility] [address] [facility] Address [address] [place] [address] Phone Care Team Providers Care Fine Dining Server Name Role Phone Celso Mathur Primary Care Provider Allergies Active Allergy Reactions Criticality Noted Date Comments Amitriptyline 08/09/2020 [place] hyper Dicyclomine Hives,Rash 07/14/2014 Dicyclomine Hydrocodone-Acetaminophen Hives [...] 1 (one) time each day. 4 Active RunnerTouch Ultra Test test strip USE TO TEST [...] diabetes mellitus wit h renal complication ([facility]/HCC V24, [facility]/HCC V28) 09/20/2024 COVID-19 virus infection 01/31/2021 Overview (09/20/2024): 11/2020 per patient Abnormal mammogram of left breast 12/26/2020 Overview (09/20/2024): 12/2020, ordering diagnostic mammo and u/s Anxiety 08/09/2020 Aortic atherosclerosis ([facility] V24) 08/09/2020 Carpal tunnel syndrome 08/09/2020 Overview (09/20/2024): Bilateral, 05/2019 Left CTR Cataract 08/09/2020 Overview (09/20/2024): Bilateral Cholelithiasis 08/09/2020 Diabetic neuropathy ([facility] V24, [facility] V28) 1 Overview (09/20/2024): Feet Glaucoma suspect 08/09/2020 Overview (09/20/2024): Left eye Hypertension 08/09/2020 Lactose intolerance 08/09/2020 Microalbuminuria 08/09/2020 Migraines 08/09/2020 Overview (09/20/2024): episodic Nephrolithiasis 08/09/2020 Seasonal allergies 08/09/2020 Slow transit constipation 08/09/2020 Type 2 diabetes mellitus wit h cataract ([facility] V24, [facility] V28) 08/09/2020 Type 2 diabetes mellitus wit h neurologic complication ([facility] V24, [facility] V28) 08/09/2020 Immunizations Immunization Administration Dates Next Due Pneumococcal conjugate 13 va lent (Prevnar 13, PCV13) 2mo and older 09/17/2019 Pneumococcal polysaccharide 23 valent (Pneumovax 23) 2yo and older 01/01/2016 Surgical History Surgery Date Site/Laterality Comments KIDNEY STONE SURGERY 04/2014 PROCEDURE: RI NEPHROLITHOTOMY REMOVAL CALCULUS; COMMENT: x 3 TUBAL LIGATION PROCEDURE: HISTORICAL TUBAL LIGATION COLONOSCOPY 04/26/2011 PROCEDURE: HISTORICAL COLONOSCOPY; COMMENT: Diverticulosis, Repeat 10 yrs UPPER GASTROINTESTINAL ENDOSCOPY 09/24/2002 PROCEDURE: RI UPPER GI ENDOSCOPY PERFORMED; COMMENT: hiatal hernia, mod retained bile suggestive of decreased gastric emptying UPPER GASTROINTESTINAL ENDOSCOPY 05/20/2012 PROCEDURE: RI UPPER GI ENDOSCOPY PERFORMED; COMMENT: Reactive gastropathy OTHER SURGICAL HISTORY 07/23/2016 PROCEDURE: HISTORY OTHER; COMMENT: vocal cord polyps removed, Dr Altaf Nicole CARPAL TUNNEL RELEASE 05/2019 Left PROCEDURE: HISTORICAL CARPAL TUNNEL REL UPPER GASTROINTESTINAL ENDOSCOPY 11/05/2018 PROCEDURE: RI UPPER GI ENDOSCOPY PERFORMED; COMMENT: Functional dyspepsia Medical History Medical History Date Comments Hyperlipidemia DX:Hyperlipidemi a GERD (gastroesophageal reflux disease) DX:GERD (gastroesophageal reflux disease) 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 ([facility] V24, [facility] V28) DX:Type 2 diabetes mellitus with renal complication (HCC) Microalbuminuria 08/09/2020 DX:Microalbumin uria Nephrolithiasis 08/09/2020 DX:Nephrolithias is Anxiety 08/09/2020 DX:Anxiety Lactose intolerance 08/09/2020 DX:Lactose i ntolerance Cholelithiasis 08/09/2020 DX:Cholelithiasi s Diabetic neuropathy ([facility] V24, [facility] V28) 08/09/2020 DX:Diabetic neuropathy ([facility]) ; COMMENT: Feet Type 2 diabetes mellitus wit h neurologic complication ([facility] V24, [facility] V28) 08/09/2020 DX:Type 2 diabetes mellitus with neurologic complication (HCC) Seasonal allergies 08/09/2020 DX:Seasonal a llergies Slow transit constipation 08/09/2020 DX:Slo w transit constipation Aortic atherosclerosis ([facility] V24) 08/09/2020 DX:Aortic atherosclerosis (HCC) Cataract 08/09/2020 DX:Cataract; COM MENT: Bilateral Type 2 diabetes mellitus wit h cataract ([facility] V24, [facility] V28) 08/09/2020 DX:Type 2 diabetes mellitus with [...] care for your loved ones. For example, children counselor or elderly care for an older adult? [...] of 2 - Risk 2-dose series) 1973 RSV Immunization Adult Patients (1 - Risk 50-74 years 1-dose series) 2004 Zoster Vaccines (1 of 2) 2004 Hepatitis B Vaccines (1 of 3 - Risk 3-dose series) 2014 Diabetes: Annual GFR (Glomerular Filtration [...] * Annual BMP Blood Test (10/30/2020) Pathologist [facility] Annual BMP Blood Test Abstracted [facility] Provider HEALTH MAINTENANCE Final Result * (ABNORMAL) Hemoglobin A1c (10/30/2020) [facility] Hemoglobin A1C 7.6(A) <=6.5 % Blood Venous blood specimen / Unknown [facility] Provider LAB BLOOD ORDERABLES Grace l Result * Lipid panel (07/28/2020) [facility] LDL/HDL Ratio 3 0 - 4 Triglycerides 123 0 - 150 mg/dL Cholesterol 135 0 - 200 mg/dL HDL 50 >=40 mg/dL LDL Cholesterol 61 0 - 100 mg/dL Blood Venous blood specimen / Unknown [facility] Provider LAB BLOOD ORDERABLES Grace l Result from Last 3 Months or Most Recently Relevant to Health Maintenance Insurance [facility] Member Subscriber Plan / Payer ( fective 2019-Present) Name:Roslyn Navarrete Relation to Subscriber:Self Name:Roslyn Navarrete Payer ID:[id number] Group ID:[id number] Type:Not on file Address: [address] [place] [address] [address] [place] [address] [facility] MEDICARE Member Subscriber Plan / Payer (Ef fective 2019-Present) Name:Roslyn Navarrete Relation to Subscriber:Self Name:Roslyn Navarrete Payer ID:[id number] Group ID:[id number] Type:Not on file Address: [place] [address] [address] Care Teams Fine Dining Server Relationship Specialty Start Date End Date Celso Mathur PA PCP - General Physician Banquet Kitchen Supervisor 09/17/24
== END 2025-09-14 14:30 | disposition home or self-care (01) ==
LOC: HO.HOS 13:45
PROVIDERS: PCP Physician Assistant; Visit Provider Orthopaedic Surgery
DX: M17.0 Bilateral primary osteoarthritis of knee (principal); M25.561 Pain in right knee; M25.562 Pain in left knee; E11.40 Type 2 diabetes mellitus with diabetic neuropathy, unspecified
CPT/HCPCS: 20610; 99213

== ENCOUNTER → 2025-09-14 13:44 | Outpatient (BNVA) | payer OTHER, SELFPAY | PROVIDERS: PCP Physician Assistant; Visit Provider Orthopaedic Surgery | DX: M25.561 Pain in right knee (principal); M25.562 Pain in left knee; R20.0 Anesthesia of skin; E11.40 Type 2 diabetes mellitus with diabetic neuropathy, unspecified; M17.0 Bilateral primary osteoarthritis of knee | CPT/HCPCS: 20610; 99212; J1010; J2003 ==

== ENCOUNTER 2025-09-16 10:19 | Outpatient (REF) | payer OTHER, SELFPAY ==
[2025-09-16 10:36] LABS: MANUAL DIFF FLAG NO
[2025-09-16 11:15] LABS: Hematocrit 35.8 % (37.0-47.0); Hemoglobin 11.6 g/dl (12.0-16.0); Imm Gran Abs Auto 0.02 X10*3/uL (0.00-0.03); Imm Gran Pct Auto 0.3 % (0.0-0.4); Lymphocytes Absolute Auto 1.6 X10*3/uL (1.2-4.9); Mean Corpuscular HGB Conc 32.4 g/dl (31.0-35.0); Mean Corpuscular Hemoglobin 27.8 pg (27.0-33.0); Mean Corpuscular Volume 85.6 fL (80.0-98.0); NRBC Abs Auto 0.000 X10*3/uL (0.0-0.012); NRBC Pct Auto 0.0 /100WBC (0.0-0.2); Platelet Count 257 X10*3/uL (160-400); Red Blood Count 4.18 X10*6/uL (4.20-5.50); White Blood Count 6.0 X10*3/uL (4.8-10.8)
[2025-09-16 12:31] LABS: Alanine Aminotransferase 18 U/L (0-31); Albumin Level 4.9 g/dL (3.5-5.0); Alkaline Phosphatase 47 U/L (39-117); Anion Gap 14 (12-20); Aspartate Amino Transferase 19 U/L (5-31); Blood Urea Nitrogen 23 mg/dL (9-16); Calcium 10.1 mg/dL (8.4-10.2); Carbon Dioxide 24 mmol/L (22-29); Chloride 106 mmol/L (96-108); Estimated Glomerular Filt Rate 51; Potassium 4.0 mmol/L (3.3-5.1); Sodium 140 mmol/L (135-145); Total Protein 7.8 g/dL (6.5-8.0)
--- OUTSIDE RECORDS SUMMARY | 2025-09-16 13:05 | XMS_ITS | Data Portability ---
Author Organization [place] [facility], Allergy Address [address] [place] [address] Care Team Providers Care Leathersmith Name Role Phone LORENZO GROSSMAN Referring Provider Assessment No assessment recorded. Plan [...] and Address Organization Details Recorded Time Dysphonia [id number] Active 2015 Hoarsenes s; Note: Date Diagnosed : 03/18/2016 2:56 PM (R49.0) Not Available [facility] 4 02:44:16 Polyp of vocal cord or larynx 588706681 Active 2015 Polyp of vocal cord and larynx; Note: Date Diagnosed : 03/18/2016 2:56 PM (J38.1) Not Available [facility] 4 02:44:17 Follow-up visit Active 2016 Medical surveilla nce following completed treatment ; Note: Date Diagnosed : 01/08/2017 1:44 PM (Z09) Not Available [facility] 4 02:44:21 Foreign body in left ear [id number] 574780 Active 2018 Foreign body in left ear, initial encounter ; Note: Date Diagnosed : 9 1:46 PM (T16.2XXA ) Not Available [facility] 4 02:44:17 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 Procedures Surgical History Date Name Laterality Status Provider Name and Address Organization Details Recorded Time 02/14/2025 NasalEndos copy_DP completed OSWALDO GONZALEZ MD [address] [facility],[address] [address], [place], [address], [place] [facility] 02/14/2025 14:46:15 Imaging Results None recorded. Procedure Notes None recorded. Medical Equipment None Reported. Allergies Allergen ID Allergen Name Allergen Category Reaction Reaction Severity Criticality Documentation Date Start Date Code Code System Note Provider Name and Address Organization Details Recorded Time 289050 Bactrim medicatio n Not available Not available Not available 02/14/2025 17378 9 RxNorm Ginnette Rancitell i null, [place] [facility] 14:18:15 503696 Reglan medicatio n Not available Not available Not available 02/14/2025 9230 RxNorm Ginnette Rancitell i issac, [place] - [facility] 14:20:38 569108 dicyclomi ne medicatio n Not available Not available Not available 02/14/2025 3361 RxNorm Ginnette Rancitell i null, [place] [facility] 14:21:11 516821 amitripty line medicatio n Not available Not available Not available 02/14/2025 704 RxNorm Ginnette Rancitell i null, [place] [facility] 14:21:21 955954 latex environme nt,medica tion Not available Not available Not available 02/14/2025 81746 91 RxNorm Ginnette Rancitell i null, [place] [facility] 5 14:21:33 122427 naproxen medicatio n Not available Not available Not available 02/14/2025 7258 RxNorm Ginnette Rancitell i null, [place] [facility] 5 14:21:48 674123 hydrocodo ne Not available Not available Not available Not available 02/14/2025 5489 RxNorm Ginnette Rancitell i null, [place] [facility] 5 14:22:02 994614 tramadol medicatio n Not available Not available Not available 02/14/2025 28524 RxNorm Ginnette Rancitell i null, [place] [facility] 5 14:22:11 08175 ibuprofen medicatio n other Not available Not available 03/16/2024 5640 RxNorm React ion: unkno wn, unspe cifie d;; Not Available [facility] 4 00:58:51 80321 diphenhyd ramine hydrochlo ride medicatio n other Not available Not available 03/16/2024 1362 RxNorm React ion: unkno wn, unspe cifie d;; Not Available [facility] 4 00:58:52 13914 promethaz ine hydrochlo ride medicatio n other Not available Not available 03/16/2024 11897 5 RxNorm React ion: unkno wn, unspe cifie d;; Not Available [facility] 4 00:59:01 13640 Substance with sulfonami de structure and antibacte rial mechanism of action (substanc e) medicatio n other Not available Not available 03/16/2024 29229 8003 SNOMED React ion: unkno wn, unspe cifie d;; Not Available [facility] 4 00:59:03 Medications Name Sig Start [...] mg tablet 2015 active Medicatio n ID: [id number] Du ration Value: 30 Brand Name: metformin [...] release 24 hr active Medicatio n ID: [id number] Du ration Value: 90 Brand Name: glipizide Send Method: E-Prescri bed Subs Allowed: subs OK Medica tionGener icName: glipizide Not Available Not Available Not Available prednisone 20 mg tablet TAKE 1 TABLET BY MOUTH EVERY DAY FOR 7 DAYS active Not Available Not Available No t Available lovastatin 40 mg tablet 2015 active Medicatio n ID: [id number] Du ration Value: 30 Brand Name: lovastati [...] ayed release 2015 active Medicatio n ID: [id number] Du ration Value: 30 Brand Name: aspirin [...] 50 mg tablet active Medicatio n ID: [id number] Du ration Value: 90 Brand Name: pyridoxin e (vitamin B6) Send Method: E-Prescri bed Subs Allowed: subs OK Medica tionGener icName: pyridoxin e (vitamin B6) Not Available Not Available Not Available omeprazole 20 mg capsule,de layed release 2015 active Medicatio n ID: [id number] Du ration Value: 30 Brand Name: omeprazol e Send Method: E-Prescri bed Subs Allowed: subs OK Medica tionGener icName: omeprazol e Not Available Not Available Not Available folic acid 1 mg tablet TAKE 1 TABLET BY MOUTH DAILY active Not Available Not Available No t Available alcohol swabs 2015 active Medicatio n ID: [id number] Du ration Value: 50 Brand Name: alcohol [...] gram/dose oral powder active Medicatio n ID: [id number] Du ration Value: 21 Brand Name: Purelax [...] Updated DateTime 02/14/2025 162.56 cm 25.9 kg/m2 41390.45 g Eduardo Kapadia [place] [facility] 02/14/2025 14:13:11 Social History None recorded. [...] ICD10 Code Diagnosis IMO Codes Diagnosis Note [id number] OSWALDO GONZALEZ MD [facility] on [address] [place] [phone] 02/14/2025 13:35:28 02/14/2025 16:52:34 Polyp of nasal cavity and/or nasal sinus 823040834 J33.9 Exam and nasal endoscopy were negative for polyps. I gave reassuranc e. Nasal vestibulitis 19591 000 J34.89 She is actually pointing to [...] [place] Member ID Guarantor Name 02/24/2025 1 [facility] - DOS ON OR AFTER 2023 - MEDICARE ADVANTAGE [place] (MEDICARE REPLACEMENT/ADV ANTAGE - PPO) Roslyn Jorgensen Rosalba [id number] Roslyn Jorgensen Rosalba Notes Date Note Type [...] Dr. Nicole in 2016. OSWALDO GONZALEZ MD [address] [place] [address], [phone], [facility] 02/14/2025 14:53:09 OBGyn Episode No OBEpisode recorded.
--- OUTSIDE RECORDS SUMMARY | 2025-09-16 13:06 | XMS_ITS | Clinical Summary ---
Author Organization [facility] Address [address] [place] [address] Phone Care Team Providers Care Silk Screen Printer Machine Name Role Phone Celso Mathur Primary Care [...] topic Medical Devices Not on file Insurance [facility] RE[facility] MEDIC[facility] REPLACEMENT [facility] MEDICARE REPLACEMENT [facility] MEDICARE REPLACEMENT Care Teams Silk Screen Printer Machine Relationship Specialty Start Date End Date Celso Mathur PA [facility] [place] [address] PCP - General Physician Ironer Machine 03/31/25 Additional Source Comments The information contained in this document represents components of the legal health record. It is not the complete legal health record.[facility]
--- OUTSIDE RECORDS SUMMARY | 2025-09-16 13:06 | XMS_ITS | Clinical Summary ---
Author Organization [facility] [address] [facility] Address [address] [place] [address] Phone Care Team Providers Care Lead Java Programmer Name Role Phone Celso Mathur Primary Care Provider Allergies Active Allergy Reactions Criticality Noted Date Comments Amitriptyline 08/09/2020 Combs hyper Dicyclomine Hives,Rash 07/14/2014 Dicyclomine Hydrocodone-Acetaminophen Hives [...] 1 (one) time each day. 4 Active [employer] Ultra Test test strip USE TO TEST [...] 2 diabetes mellitus wit h renal complication ([facility]/HCC V24, [facility]/HCC V28) 09/20/2024 COVID-19 virus infection 01/31/2021 Overview (09/20/2024): 11/2020 per patient Abnormal mammogram of left breast 12/26/2020 Overview (09/20/2024): 12/2020, ordering diagnostic mammo and u/s Anxiety 08/09/2020 Aortic atherosclerosis ([facility] V24) 08/09/2020 Carpal tunnel syndrome 08/09/2020 Overview (09/20/2024): Bilateral, 05/2019 Left CTR Cataract 08/09/2020 Overview (09/20/2024): Bilateral Cholelithiasis 08/09/2020 Diabetic neuropathy ([facility] V24, [facility] V28) 1 Overview (09/20/2024): Feet Glaucoma suspect 08/09/2020 Overview (09/20/2024): Left eye Hypertension 08/09/2020 Lactose intolerance 08/09/2020 Microalbuminuria 08/09/2020 Migraines 08/09/2020 Overview (09/20/2024): episodic Nephrolithiasis 08/09/2020 Seasonal allergies 08/09/2020 Slow transit constipation 08/09/2020 Type 2 diabetes mellitus wit h cataract ([facility] V24, [facility] V28) 08/09/2020 Type 2 diabetes mellitus wit h neurologic complication ([facility] V24, [facility] V28) 08/09/2020 Immunizations Immunization Administration Dates Next Due Pneumococcal conjugate 13 va lent (Prevnar 13, PCV13) 2mo and older 09/17/2019 Pneumococcal polysaccharide 23 valent (Pneumovax 23) 2yo and older 01/01/2016 Surgical History Surgery Date Site/Laterality Comments KIDNEY STONE SURGERY 04/2014 PROCEDURE: [place] NEPHROLITHOTOMY REMOVAL CALCULUS; COMMENT: x 3 TUBAL LIGATION PROCEDURE: HISTORICAL TUBAL LIGATION COLONOSCOPY 04/26/2011 PROCEDURE: HISTORICAL COLONOSCOPY; COMMENT: Diverticulosis, Repeat 10 yrs UPPER GASTROINTESTINAL ENDOSCOPY 09/24/2002 PROCEDURE: [place] UPPER GI ENDOSCOPY PERFORMED; COMMENT: hiatal hernia, mod retained bile suggestive of decreased gastric emptying UPPER GASTROINTESTINAL ENDOSCOPY 05/20/2012 PROCEDURE: [place] UPPER GI ENDOSCOPY PERFORMED; COMMENT: Reactive gastropathy OTHER SURGICAL HISTORY 07/23/2016 PROCEDURE: HISTORY OTHER; COMMENT: vocal cord polyps removed, Dr Altaf Nicole CARPAL TUNNEL RELEASE 05/2019 Left PROCEDURE: HISTORICAL CARPAL TUNNEL REL UPPER GASTROINTESTINAL ENDOSCOPY 11/05/2018 PROCEDURE: [place] UPPER GI ENDOSCOPY PERFORMED; COMMENT: Functional dyspepsia Medical History Medical History Date Comments Hyperlipidemia DX:Hyperlipidemi a GERD (gastroesophageal reflux disease) DX:GERD (gastroesophageal reflux disease) 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 ([facility] V24, [facility] V28) DX:Type 2 diabetes mellitus with renal complication (HCC) Microalbuminuria 08/09/2020 DX:Microalbumin uria Nephrolithiasis 08/09/2020 DX:Nephrolithias is Anxiety 08/09/2020 DX:Anxiety Lactose intolerance 08/09/2020 DX:Lactose i ntolerance Cholelithiasis 08/09/2020 DX:Cholelithiasi s Diabetic neuropathy ([facility] V24, [facility] V28) 08/09/2020 DX:Diabetic neuropathy ([facility]) ; COMMENT: Feet Type 2 diabetes mellitus wit h neurologic complication ([facility] V24, [facility] V28) 08/09/2020 DX:Type 2 diabetes mellitus with neurologic complication (HCC) Seasonal allergies 08/09/2020 DX:Seasonal a llergies Slow transit constipation 08/09/2020 DX:Slo w transit constipation Aortic atherosclerosis ([facility] V24) 08/09/2020 DX:Aortic atherosclerosis (HCC) Cataract 08/09/2020 DX:Cataract; COM MENT: Bilateral Type 2 diabetes mellitus wit h cataract ([facility] V24, [facility] V28) 08/09/2020 DX:Type 2 diabetes mellitus with [...] care for your loved ones. For example, manager child or elderly care for an older adult? [...] * Annual BMP Blood Test (10/30/2020) Pathologist [facility] Annual BMP Blood Test Abstracted [facility] Provider HEALTH MAINTENANCE Final Result * (ABNORMAL) Hemoglobin A1c (10/30/2020) [facility] Hemoglobin A1C 7.6(A) <=6.5 % Blood Venous blood specimen / Unknown [facility] Provider LAB BLOOD ORDERABLES Grace l Result * Lipid panel (07/28/2020) [facility] LDL/HDL Ratio 3 0 - 4 Triglycerides 123 0 - 150 mg/dL Cholesterol 135 0 - 200 mg/dL HDL 50 >=40 mg/dL LDL Cholesterol 61 0 - 100 mg/dL Blood Venous blood specimen / Unknown [facility] Provider LAB BLOOD ORDERABLES Grace l Result from Last 3 Months or Most Recently Relevant to Health Maintenance Insurance [facility] Member Subscriber Plan / Payer ( fective 2019-Present) Name:Roslyn Navarrete Relation to Subscriber:Self Name:Roslyn Navarrete Payer ID:[id number] Group ID:[id number] Type:Not on file Address: [place] [address] [address] [place] [address] [facility] MEDICARE Member Subscriber Plan / Payer (Ef fective 2019-Present) Name:Roslyn Navarrete Relation to Subscriber:Self Name:Roslyn Navarrete Payer ID:[id number] Group ID:[id number] Type:Not on file Address: [place] [address] [address] Care Teams Lead Java Programmer Relationship Specialty Start Date End Date Celso Mathur PA PCP - General Physician Reception 09/17/24
== END 2025-09-16 10:20 | disposition home or self-care (01) ==
LOC: HO.LAB 10:19
PROVIDERS: PCP Physician Assistant; Visit Provider Student in an Organized Health Care Education/Training Program
DX: M06.00 Rheumatoid arthritis without rheumatoid factor, unspecified site (principal)
CPT/HCPCS: 36415; 80053; 85025; 85652; 86140

== ENCOUNTER 2025-09-20 12:26 | Outpatient (AMB) | payer OTHER, SELFPAY ==
--- NOTE | 2025-09-20 12:47 | A.OFFVIS_ITS ---
Vital Signs 09/20/25 12:54 Height 5 ft 4 in Weight 163 lb 9.328 oz BMI 28.1 BP 132/80 Blood Pressure Location Lt brachial Position Sitting Pulse 86 Pulse Source Pulse Oximeter Pulse Oximetry (%) 96 Oxygen Delivery Method Room Air Intake Visit Reasons: follow up Intake Note: Patient presents for RA follow up. Allergies etanercept (From Enbrel) Allergy (Intermediate, Verified 09/20/25 12:53) Rash cetirizine Allergy (Mild, Verified 09/20/25 12:53) Hives dicyclomine (From BENTYL) Allergy (Unknown, Verified 09/20/25 12:53) HIVES hydrocodone (HYDROCODONE) Allergy (Unknown, Verified 09/20/25 12:53) UNKNOWN ibuprofen (From MOTRIN) Allergy (Unknown, Verified 09/20/25 12:53) HIVES Iodinated Contrast Media (IV CONTRAST) Allergy (Unknown, Verified 09/20/25 12:53) ITCHING minocycline (MINOCYCLINE) Allergy (Unknown, Verified 09/20/25 12:53) UNK morphine (MORPHINE) Allergy (Unknown, Verified 09/20/25 12:53) UNKNOWN naproxen (NAPROXEN) Allergy (Unknown, Verified 09/20/25 12:53) UNKOWN peanut (PEANUT) Allergy (Unknown, Verified 09/20/25 12:53) HIVES sulfamethoxazole (From BACTRIM) Allergy (Unknown, Verified 09/20/25 12:53) UNKNOWN tramadol (TRAMADOL) Allergy (Unknown, Verified 09/20/25 12:53) UNK trimethoprim (From BACTRIM) Allergy (Unknown, Verified 09/20/25 12:53) UNKNOWN lisinopril Allergy (Verified 09/20/25 12:53) Abdominal Pain methotrexate Allergy (Verified 09/20/25 12:53) Joint Pain metronidazole (From Flagyl) Allergy (Verified 09/20/25 12:53) Hives glipizide Adverse Reaction (Intermediate, Verified 09/20/25 12:53) neuropathy amitriptyline (AMITRIPTYLINE) Adverse Reaction (Mild, Verified 09/20/25 12:53) HYPER metoclopramide (From REGLAN) Adverse Reaction (Mild, Verified 09/20/25 12:53) HYPER latex (LATEX) Adverse Reaction (Unknown, Verified 09/20/25 12:53) RASH phenylephrine (PHENYLEPHRINE) Adverse Reaction (Unknown, Verified 09/20/25 12:53) UNKNOWN promethazine (From PHENERGAN) Adverse Reaction (Unknown, Verified 09/20/25 12:53) UNK glipizide Allergy (Mild, Uncoded 09/14/25 14:03) Rash SHELLFISH Allergy (Unknown, Uncoded 09/14/25 14:03) HIVES HPI Comments Details: Patient is a 70-year-old female with diabetes, hypertension, hyperlipidemia and seronegative rheumatoid arthritis here today for follow up Interval History: Patient last seen 05/20/25 with me - On Leflunomide 20mg daily - Doing better on leflunomide - Concerned about the interaction btw her statin and leflunomide - followed with allergy and started xyzal Today - On Leflunomide 20mg daily - Continues to do well - Complaining of burning to the tops of her feet, primary referred to neurology - Had knee injections from ortho 1 week ago Rheumatologic History: -ve RF -ve CCP dx 09/2024 MTX started 09/2024 DC 11/2024 ineffective Enbrel 11/2024. Allergic reaction (rash) Humira 12/2024-01/2025. Allergic reaction (rash) Leflunomide 01/2025 Current Rheumatology Medication(s): Leflunomide 20mg daily [facility] Medical History (Updated 09/20/25 @ 13:16 by Sarah Aldrich MD) Encounter for screening for osteoporosis Dizziness Eczema Dermatitis Neuropathic pain Thrush Vaginitis Vaginal cyst IBS (irritable bowel syndrome) GERD (gastroesophageal reflux disease) Osteoarthritis Rheumatoid arthritis HTN (hypertension) Migraine GERD (gastroesophageal reflux disease) Diabetes Surgical History S/P carpal tunnel release Hx of colonoscopy History of esophagogastroduodenoscopy (EGD) S/P carpal tunnel release Family History Maternal Grandmother Colon cancer Brother History of heart disease Social History Household Members: None Housing: Apartment Do you presently have visiting nurse or other home services: Yes Alcohol intake: never Patient Tobacco Use Status: Never used Tobacco e-Cigarette/Vaping Use: Never Used Second Hand Smoke Exposure: No Advance Directives Date on File: 04/25/23 service: No Current occupational status: disabled Cognitive needs: No Hearing needs: No Vision needs: No Review of Systems Narrative Review of Systems Constitutional: Denies fever, chills, weight loss ENT: Denies vision changes, eye pain or eye redness, dental caries, dry mouth GI: Denies nausea, vomiting, diarrhea, abdominal pain, change in BM Pulm: Denies SOB, LEVINE, hemoptysis, wheezing Cards: Denies chest pain, palpitations Skin: Denies Raynaud's, rash, nail changes, photosensitivity, COMMODITY MANAGER: Denies headaches, weakness, paresthesias, recurrent falls MSK: as per HPI All other systems reviewed and are unremarkable except noted above Physical Exam Exam Exam: Vital signs reviewed Physical Examination CONSTITUITIONAL Patient alert and cooperative. Well appearing and in no apparent painful distress MSK Hands * Right Hand: Able to make a fist. No swelling or tenderness to palpation of the MCPs, PIPs or DIPs. * Left Hand: Able to make a fist. No swelling or tenderness to palpation of the MCPs, PIPs or DIPs. Wrists * Right Wrist: Full ROM to flexion and extension. No swelling or TTP * Left Wrist: Full ROM to flexion and extension. No swelling or TTP Elbows * Right Elbow: Full ROM. No swelling or TTP. No TTP of the medial epicondyle. No TTP of the lateral epicondyle * Left Elbow: Full ROM. No swelling or TTP. No TTP of the medial epicondyle. No TTP of the lateral epicondyle Shoulders * Right shoulder: Full ROM. No swelling noted. No TTP of the AC joint. No TTP of the subacromial bursa. No TTP of the posterior shoulder * Left shoulder: Full ROM. No swelling noted. No TTP of the AC joint. No TTP of the subacromial bursa. No TTP of the posterior shoulder Knees * Right knee: Full ROM. No swelling noted. TTP of the knee joint line. No TTP of pes anserine bursa * Left knee: Full ROM. No swelling noted. TTP of the knee joint line. No TTP of pes anserine bursa. * Crepitations felt bilaterally Ankles * Right ankle: Good ankle dorsiflexion and plantar flexion. No swelling. No TTP of the ankle joint * Left ankle: Good ankle dorsiflexion and plantar flexion. No swelling. No TTP of the ankle joint Feet * Right foot: Negative squeeze test * Left foot: Negative squeeze test Tender points? * No tenderness to palpation of the bilateral trapezius, supraspinatus, anterior costochondral junctions, bilateral suboccipital muscle insertions SKIN No rashes Vital Signs: BMI result Body Mass Index 28.1 Results Reviewed Results Reviewed: Laboratory Tests 01/13/25 09/16/25 14:23 10:34 WBC 6.0 RBC 4.18 L Hgb 11.6 L Hct 35.8 L Plt Count 257 ESR 16 22 H Sodium 140 Potassium 4.0 Chloride 106 Carbon Dioxide 24 BUN 23 H Creatinine 1.06 AST 19 ALT 18 C-Reactive Protein 0.22 Laboratory Tests 09/01/24 16:29 Rheumatoid Factor < 13.0 Cycl Citrul Peptide IgG <16 SARATH Screen NEGATIVE Laboratory Tests 09/01/24 11/08/24 16:29 14:32 Hepatitis A IgM Ab Nonreactive Hep Bs Antigen Negative Hep Bs Antibody NONREACTIVE Hep B Core Total Ab Nonreactive Hepatitis C Ab (EIA) Nonreactive TB Test (T-Spot) Com Negative DEXA 05/2023 FINDINGS: LEFT FEMUR, NECK: BMD 1.108 g/cm2, Z-score 2.0, T-score 0.5, normal. LEFT FEMUR, TOTAL: BMD 1.082 g/cm2, Z-score 1.8, T-score 0.6, normal. AP SPINE L1-L4: BMD 1.229 g/cm2, Z-score 1.8, T-score 0.4, normal. Assessment & Plan Assessment & Plan (1) Seronegative rheumatoid arthritis: Comment: -ve RF -ve CCP dx 09/2024 MTX started 09/2024 DC 11/2024 ineffective Enbrel 11/2024 allergic reaction after 2 doses Humira 11/2024 - 01/2025. Allergic reaction. Rash Leflunomide 01/2025 Code(s): M06.00 - Rheumatoid arthritis without rheumatoid factor, unspecified site Category: Medical Plan: #Seronegative RA Patient is a 70-year-old female with seronegative rheumatoid arthritis currently in remission on leflunomide Plan - Continue leflunomide 20mg daily - Recommend to discuss with primary about reducing the dose of atorvastatin due to potentiation from leflunomide - RTC 6 months - Labs before next visit: CBC, CMP, ESR, CRP (2) Encounter for screening for osteoporosis: Comment: DEXA 05/2023: AP Spine 0.4, Left femur neck 0.5, Left femur total 0.6 Code(s): Z13.820 - Encounter for screening for osteoporosis Category: Medical Plan: #Screening for osteoporosis Last DEXA 05/2023 normal Due for repeat bone density Plan - DEXA ordered (3) Encounter for monitoring leflunomide therapy: Code(s): Z51.81 - Encounter for therapeutic drug level monitoring; Z79.69 - talent management specialist (current) use of other immunomodulators and immunosuppressants Plan: #Long-term leflunomide Discussed with patient the benefits and risks of leflunomide for managing the rheumatic condition Benefits include: - Reduced pain, maintenance of remission and reduction of flares Risks include: - GI upset especially diarrhea, skin rash, cytopenias, hepatotoxicity, weight loss, neuropathy Leflunomide is highly teratogenic. ?Has a very long half-life. ?Needs cholestyramine washout if there is desire for Initiation: ?CBC, BMP, LFTs, hepatitis-B and C serologies every 2-4 weeks for 3 months Monitoring: ?CBC, BMP, LFTs, hepatitis B and C serologies Plan I spent 30 minutes reviewing the record and labs, taking a history, examining the patient, discussing the treatment plan and documenting in the medical record Orders: Orders XR DEXA axial skeleton Today M81.0 - Age-related osteoporosis without current pathological fracture Complete Blood Count Auto Diff 6 Months Z79.899 - Other longterm (current) drug therapy C Reactive Protein 6 Months Z79.899 - Other longterm (current) drug therapy Erythrocyte Sedimentation Rate 6 Months Z79.899 - Other longterm (current) drug therapy Comprehensive Met. Panel 6 Months Z79.899 - Other longterm (current) drug therapy Medications: Refilled leflunomide 20 mg PO DAILY 90 tabs 1RF Z51.81 - Encounter for therapeutic drug level monitoring, Z79.69 - talent management specialist (current) use of other immunomodulators and immunosuppressants Coding Level of Care Code Est Pt Level 4 (36331) Complex EM visit Add On G2211 Diagnoses Seronegative rheumatoid arthritis M06.00 Encounter for screening for osteoporosis Z13.820 Encounter for monitoring leflunomide therapy Z51.81; Z79.69
[2025-09-20 12:54] VITALS: BP 132/80; PULSE 86; O2SAT 96; BMI 28.1
--- OUTSIDE RECORDS SUMMARY | 2025-09-21 03:25 | XMS_ITS | Data Portability ---
Author Organization [place] [facility], Allergy Address [address] [place] [phone] Care Team Providers Care Tax Services Specialist Name Role Phone LORENZO GROSSMAN Referring Provider [...] and Address Organization Details Recorded Time Dysphonia 13330068 Active 2015 Hoarsenes s; Note: Date Diagnosed : 03/18/2016 2:56 PM (R49.0) Not Available [facility] 4 02:44:16 Polyp of vocal cord or larynx 691130030 Active 2015 Polyp of vocal cord and larynx; Note: Date Diagnosed : 03/18/2016 2:56 PM (J38.1) Not Available [facility] 4 02:44:17 Follow-up visit Active 2016 Medical surveilla nce following completed treatment ; Note: Date Diagnosed : 01/08/2017 1:44 PM (Z09) Not Available [facility] 4 02:44:21 Foreign body in left ear [id number] 347321 Active 2018 Foreign body in left ear, initial encounter ; Note: Date Diagnosed : 9 1:46 PM (T16.2XXA ) Not Available [facility] 4 02:44:17 Polyp of nasal cavity and/or nasal sinus 873617320 Active 2024 OSWALDO GONZALEZ MD [address] [facility],[place] [address], [place], [address] , [place] - [facility] 14:46:12 Nasal vestibuli tis 02119696 Active 2024 OSWALDO GONZALEZ MD [address] [address], [place], [address] , [facility] - [facility] 14:52:34 Problem Notes None recorded. Procedures Surgical History Date Name Laterality Status Provider Name and Address Organization Details Recorded Time 02/14/2025 NasalEndos copy_DP completed OSWALDO GONZALEZ MD [address] [facility],[place] [address], [place], [address], [place] - [facility] 02/14/2025 14:46:15 Imaging Results None recorded. Procedure Notes None recorded. Medical Equipment None Reported. Allergies Allergen ID Allergen Name Allergen Category Reaction Reaction Severity Criticality Documentation Date Start Date Code Code System Note Provider Name and Address Organization Details Recorded Time [id number] Bactrim medicatio n Not available Not available Not available 02/14/2025 32758 9 RxNorm Ginnette Rancitell i null, [place] - [facility] 14:18:15 [id number] Reglan medicatio n Not available Not available Not available 02/14/2025 9230 RxNorm Ginnette Rancitell i issac, [place] - [facility] 14:20:38 866891 dicyclomi ne medicatio n Not available Not available Not available 02/14/2025 3361 RxNorm Ginnette Rancitell i null, [place] - [facility] 14:21:11 335592 amitripty line medicatio n Not available Not available Not available 02/14/2025 704 RxNorm Ginnette Rancitell i null, [place] - [facility] 14:21:21 380827 latex environme nt,medica tion Not available Not available Not available 02/14/2025 38972 91 RxNorm Ginnette Rancitell i null, [place] - [facility] 5 14:21:33 226265 naproxen medicatio n Not available Not available Not available 02/14/2025 7258 RxNorm Ginnette Rancitell i null, [place] - [facility] 5 14:21:48 858647 hydrocodo ne Not available Not available Not available Not available 02/14/2025 5489 RxNorm Ginnette Rancitell i [place], [place] [facility] 5 14:22:02 827752 tramadol medicatio n Not available Not available Not available 02/14/2025 28533 RxNorm Ginnette Rancitell i [place], [place] - [facility] 5 14:22:11 11244 ibuprofen medicatio n other Not available Not available 03/16/2024 5640 RxNorm React ion: unkno wn, unspe cifie d;; Not Available [facility] 4 00:58:51 77004 diphenhyd ramine hydrochlo ride medicatio n other Not available Not available 03/16/2024 1362 RxNorm React ion: unkno wn, unspe cifie d;; Not Available [facility] 4 00:58:52 92052 promethaz ine hydrochlo ride medicatio n other Not available Not available 03/16/2024 29409 5 RxNorm React ion: unkno wn, unspe cifie d;; Not Available [facility] 4 00:59:01 79625 Substance with sulfonami de structure and antibacte rial mechanism of action (substanc e) medicatio n other Not available Not available 03/16/2024 20616 8003 SNOMED React ion: unkno wn, unspe cifie d;; Not Available [facility] 4 00:59:03 Medications Name Sig Start [...] mg tablet 2015 active Medicatio n ID: [id number] Du ration Value: 30 Brand Name: metformin [...] release 24 hr active Medicatio n ID: [id number] Du ration Value: 90 Brand Name: glipizide Send Method: E-Prescri bed Subs Allowed: subs OK Medica tionGener icName: glipizide Not Available Not Available Not Available prednisone 20 mg tablet TAKE 1 TABLET BY MOUTH EVERY DAY FOR 7 DAYS active Not Available Not Available No t Available lovastatin 40 mg tablet 2015 active Medicatio n ID: [id number] Du ration Value: 30 Brand Name: lovastati [...] ayed release 2015 active Medicatio n ID: [id number] Du ration Value: 30 Brand Name: aspirin [...] 50 mg tablet active Medicatio n ID: [id number] Du ration Value: 90 Brand Name: pyridoxin e (vitamin B6) Send Method: E-Prescri bed Subs Allowed: subs OK Medica tionGener icName: pyridoxin e (vitamin B6) Not Available Not Available Not Available omeprazole 20 mg capsule,de layed release 2015 active Medicatio n ID: [id number] Du ration Value: 30 Brand Name: omeprazol e Send Method: E-Prescri bed Subs Allowed: subs OK Medica tionGener icName: omeprazol e Not Available Not Available Not Available folic acid 1 mg tablet TAKE 1 TABLET BY MOUTH DAILY active Not Available Not Available No t Available alcohol swabs 2015 active Medicatio n ID: [id number] Du ration Value: 50 Brand Name: alcohol [...] gram/dose oral powder active Medicatio n ID: [id number] Du ration Value: 21 Brand Name: Purelax [...] Updated DateTime 02/14/2025 162.56 cm 25.9 kg/m2 92458.45 g Eduardo Kapadia [place] [facility] 02/14/2025 14:13:11 Social History None recorded. Functional [...] ICD10 Code Diagnosis IMO Codes Diagnosis Note [id number] OSWALDO GONZALEZ MD [facility] on [address] [place] [phone] 02/14/2025 13:35:28 02/14/2025 16:52:34 Polyp of nasal cavity and/or nasal sinus 295820093 J33.9 Exam and nasal endoscopy were negative for polyps. I gave reassuranc e. Nasal vestibulitis 55788 000 J34.89 She is actually pointing to [...] [place] Member ID Guarantor Name 02/24/2025 1 [facility] - DOS ON OR AFTER 2023 - MEDICARE ADVANTAGE [place] (MEDICARE REPLACEMENT/ADV ANTAGE - PPO) Roslyn Jorgensen Rosalba [id number] Roslyn Jorgensen Rosalba Notes Date Note Type [...] Dr. Nicole in 2016. OSWALDO GONZALEZ MD [address] [place] [address], [phone], [facility] - [facility] 02/14/2025 14:53:09 OBGyn Episode No OBEpisode recorded.
== END 2025-09-20 13:23 | disposition home or self-care (01) ==
LOC: HO.RHES 12:26
PROVIDERS: PCP Physician Assistant; Visit Provider Student in an Organized Health Care Education/Training Program
DX: M06.09 Rheumatoid arthritis without rheumatoid factor, multiple sites (principal); Z13.820 Encounter for screening for osteoporosis; Z51.81 Encounter for therapeutic drug level monitoring; Z79.69 Long term (current) use of other immunomodulators and immunosuppressants
CPT/HCPCS: 99214; G2211

== ENCOUNTER → 2025-09-20 12:26 | Outpatient (BNVA) | payer OTHER, SELFPAY | PROVIDERS: PCP Physician Assistant; Visit Provider Student in an Organized Health Care Education/Training Program | DX: M06.09 Rheumatoid arthritis without rheumatoid factor, multiple sites (principal); M81.0 Age-related osteoporosis without current pathological fracture; Z13.820 Encounter for screening for osteoporosis; Z79.899 Other long term (current) drug therapy | CPT/HCPCS: 99212 ==